=== PATIENT | female | born 1940 | race Caucasian/White ===

== ENCOUNTER → 2016-11-15 | Outpatient (CLI) | payer OTHER ==
[~2016-11-15] MED LIST: ALBU1AER9 INH; ASCO1CAP3 PO; ASPI-390 PO; ASPI1TAB4 PO; AZITTAB PO; BENZ100C84 PO; CALC-51 PO; CHOL100010 PO; ESTR1CRE PV; FERR325T74 PO; LORA-741 PO; PRED20TA PO; PRLSR20 PO; PRM625 PO
--- NOTE | 2016-11-16 07:41 | MAMMOGRAPHY REPORT ---
BILATERAL DIGITAL SCREENING MAMMOGRAM WITH CAD: 11/15/2016 CLINICAL HISTORY: Routine screening. Patient has no complaints. TECHNIQUE: Bilateral CC and MLO views were obtained. Current study was also evaluated with a Compute r Aided Detection (CAD) system. COMPARISON: Comparison is made to exams dated: 11/13/2015 mammogram, 11/11/2014 mammogram, 11/09/2013 m ammogram, 11/08/2012 mammogram, 11/08/2011 mammogram, and 11/05/2010 mammogram - [facility] ter. BREAST COMPOSITION: The tissue of both breasts is heterogeneously dense, which may obscure small mas ses. FINDINGS: There are stable faint groupings of punctate microcalcifications in the upper outer quadran t of the right breast, that appears similar on all available prior mammograms dating back to at least 10/30/2007, therefore likely benign. No new suspicious mass, architectural distortion or cluster of microcalcifications is seen bilaterally. IMPRESSION: ACR BI-RADS CATEGORY 1: NEGATIVE There is no mammographic evidence of malignancy. A 1 year screening mammogram is recommended. The pa tient will receive written notification of the results. Approximately 10% of breast cancers are not detected with mammography. A negative mammographic report should not delay biopsy if a clinically suggestive mass is present. Larissa Pitts M.D. ay/:11/15/2016 16:08:24 Blender Operator: Mallory GR)(Rodo), [facility] letter sent: Normal 1/2 BI-RADS Code: ACR BI-RADS Category 1: Negative
== END | disposition home or self-care (01) ==
LOC: C.MAMM 11:07
PROVIDERS: ATTEND Internal Medicine
DX: Z12.31 Encounter for screening mammogram for malignant neoplasm of breast (principal)

== ENCOUNTER 2017-03-02 15:08 | Inpatient (IN) | payer OTHER ==
[~2017-03-02] VITALS: Ht 154.9 cm; Wt 67.6 kg
[~2017-03-02 15:08] MED LIST changes: -ASPI-390 PO; -CALC-51 PO; -LORA-741 PO; -PRLSR20 PO
[2017-03-02] MEDS ORDERED: ASPIRIN 81 MG CHEW PO STA (15:48)
--- NOTE | 2017-03-02 16:07 | DIAGNOSTIC IMAGING REPORT ---
CHEST ONE VIEW PORTABLE CLINICAL HISTORY: Chest Pain dyspnea COMPARISON STUDY: No previous studies for comparison. FINDINGS: The bones soft tissues and hemidiaphragms are normal. The cardiomediastinal silhouette is normal. The lungs are clear. The pulmonary vasculature is normal. IMPRESSION: Negative chest. The above report was generated using voice recognition software. It may contain grammatical, syntax or spelling errors. Electronically signed by: Arnulfo Weinberg M.D. 03/02/2017 4:06 PM Dictated Date/Time: 03/02/2017 4:06 PM
[2017-03-02 16:12] LABS: BASO % 0.4 %; BASO ABS # 0.03 K/uL (0-0.2); COMPLETE YES; HEMATOCRIT 38.7 % (37-47); IG% 0.1 %; LYMPH % 27.5 %; LYMPH ABS # 2.11 K/uL (1.2-3.4); MEAN CELL VOLUME 85.4 fL (80-100); MEAN CORPUSCULAR HEMOGLOBIN 27.8 pg (25-34); MEAN CORPUSCULAR HGB CONC 32.6 g/dl (32-36); MEAN PLATELET VOLUME 9.7 fL (7.4-10.4); MONO % 5.6 %; NEUT % 63.4 %; PLATELET COUNT 229 K/uL (130-400); RED BLOOD COUNT 4.53 M/uL (4.2-5.4); WHITE BLOOD COUNT 7.67 K/uL (4.8-10.8)
[2017-03-02] MEDS ORDERED: CHOL100027 PO (16:26)
[2017-03-02] MEDS ORDERED: BUSP15TA70 PO (16:26)
[2017-03-02] MEDS ORDERED: FERR1TAB23 PO (16:26)
[2017-03-02] MEDS ORDERED: CALC500T72 PO (16:26)
[2017-03-02] MEDS ORDERED: ASPI1TAB4 PO (16:26)
[2017-03-02] MEDS ORDERED: FLUT0.15 NAE (16:26)
[2017-03-02] MEDS ORDERED: CYAN10005 PO (16:26)
[2017-03-02 16:37] LABS: BUN/CREATININE RATIO 21.5 (10-20); CALCIUM 9.6 mg/dl (8.5-10.1); CREATININE 0.67 mg/dl (0.60-1.20); POTASSIUM 3.8 mmol/L (3.5-5.1)
[2017-03-02] MEDS ORDERED: PRLSR20 PO (16:44)
[2017-03-02 16:57] LABS: CKMB/CK RATIO 9.5 (0-3.0)
[2017-03-02 17:06] VITALS: Ht 154.9 cm; Wt 67.6 kg
--- NOTE | 2017-03-02 18:28 | History and Physical ---
History & Physical Date & Time of Service: Mar 02, 2017 at 18:28 Chief Complaint: Chest And Jaw Pain-Sent By 's Office Primary Care Physician: Vesta Reyes M.D. History of Present Illness Source: patient This is a 76 yo F with no significant past medical history -presented to ED with substernal chest pain , radiation to left arm , left side of her Jaw her symptom occurred approx at 2 PM ,she was talking to her friend over phone , started to have chest discomfort . initially felt like burning sensation in mid chest , leading to chest heaviness, SOB , numbness on left arm and shoulder , to jaw -left side of her teeth and gum area her symptom resolved after few minutes did not had any dizzy spell , no nausea or diaphoresis had similar episode on Tuesday while she was walking ( usually walks 1 mile ) - she had to turn around after half way due to chest discomfort , her symptom resolved with rest On Tuesday as she was sitting and watching TV had similar episode in the ER pt was chest pain free , EKG shows inverted T wave in AVL, Lead I and flatten T wave in V5-V6 Troponin elevated to 1.210 with elevated CKMB pt does not have prior hx of NC or cardiac disease Has Family hx of CAD -mother had unstable angina , had angioplasty done at her late 60's Father had acute NC at age 40 's leading to heart failure , underwent CABG Her Younger brother last year form Acute NC ( her brother is 9 yrs younger ) pt admitted to [facility] for NSTEMI at present chest pain free started on IV heparin gtt form ER case D/w Cardiology -ordered NPO past midnight for Cardiac Cath tomorrow Past Medical/Surgical History Medical Problems: (1) GERD (gastroesophageal reflux disease) Status: Chronic (2) Kidney stones Status: Chronic Family History Patient reports no known family medical history. Social History Smoking Status: Never Smoker Drug Use: none Marital Status: single Occupational Status: employed Immunizations History of Influenza Vaccine: Yes History of Tetanus Vaccine?: Yes History of Pneumococcal: Yes History of Hepatitis B Vaccine: Yes Multi-Drug Resistant Organisms History of MDRO: No Allergies Coded Allergies: No Known Allergies (Verified , 08/28/09) Home Medications Scheduled Aspirin-Caffeine (Kevin Back & Body Pain Ex), 1 TAB PO PRN UD Calcium Ascorbate (Vitamin C), 500 MG PO DAILY Cholecalciferol (Vitamin D 1000 Unit), 1,000 INTER.UNIT PO DAILY Cyanocobalamin (Vitamin B-12), 1,000 MCG PO DAILY Ferrous Sulfate (Iron), 325 MG PO DAILY Omeprazole (Prilosec), 20 MG PO DAILY Scheduled PRN Zukbszb-Bthxwfavunrlx-Cqejxkpj (Excedrin Migraine), 2 TABLETS PO Q6H PRN for Pain Buspirone Hcl (Buspar), 7.5 MG PO BID PRN for Anxiety Fluticasone Propionate (Nasal) (Flonase Allergy Relief), 2 SPRAYS EBATA DAILY PRN for Nasal Congestion Lorazepam (Ativan), 0.5 MG PO BID PRN for Anxiety Miscellaneous Medications [Calcium], 1,250 MG PO Review of Systems Respiratory: + dyspnea on exertion Cardiovascular: + chest pain (chest heaviness with pain radiation to jaw and left shoulder , arm ) Abdomen: No pain, No nausea, No vomiting, No diarrhea, No constipation, No GI bleeding, No problem reported Musculoskeletal: No joint pain, No muscle pain, No swelling, No calf pain, No problem reported Neurologic: No memory loss, No paralysis, No weakness, No numbness/tingling, No vertigo, No balance problems, No problem reported Psychiatric: No depression symptoms, No anhedonism, No anxiety, No insomnia, No substance abuse, No problem reported Endocrine: No fatigue, No excessive thirst, No excessive urination, No problem reported Physical Exam Vital Signs Date Time Temp Pulse Resp B/P (MAP) Pulse Ox O2 Delivery O2 Flow Rate FiO2 03/02/17 17:33 70 17 96 03/02/17 17:31 154/87 03/02/17 17:18 68 21 97 03/02/17 17:06 Room Air 03/02/17 17:03 64 17 98 03/02/17 17:01 145/86 03/02/17 16:50 149/89 03/02/17 16:48 69 17 03/02/17 16:41 69 03/02/17 15:44 96 Room Air 03/02/17 15:43 174/84 03/02/17 15:30 36.6 72 20 144/79 97 Room Air General Appearance: no apparent distress Head: normocephalic, atraumatic Eyes: normal inspection, PERRL, EOMI, sclerae normal ENT: normal ENT inspection, hearing grossly normal, pharynx normal Neck: supple, no adenopathy, thyroid normal, no JVD, no carotid bruits, trachea midline Respiratory/Chest: chest non-tender, lungs clear, normal breath sounds, no respiratory distress Cardiovascular: regular rate, rhythm, no edema, no gallop, no JVD, no murmur, normal peripheral pulses Abdomen/GI: normal bowel sounds, non tender, soft Extremities/Musculoskelatal: normal inspection, no calf tenderness, normal capillary refill, no pedal edema, normal range of motion Neurologic/Psych: no motor/sensory deficits, alert, normal mood/affect, oriented x 3 Skin: normal color, warm/dry, no rash Lymphatic: no adenopathy Diagnostics Laboratory Results Results Past 24 Hours Test 03/02/17 15:50 Range/Units White Blood Count 7.67 4.8-10.8 K/uL Red Blood Count 4.53 4.2-5.4 M/uL Hemoglobin 12.6 12.0-16.0 g/dL Hematocrit 38.7 37-47 % Mean Corpuscular Volume 85.4 80-100 fL Mean Corpuscular Hemoglobin 27.8 25-34 pg Mean Corpuscular Hemoglobin Concent 32.6 32-36 g/dl Platelet Count 229 130-400 K/uL Mean Platelet Volume 9.7 7.4-10.4 fL Neutrophils (%) (Auto) 63.4 % Lymphocytes (%) (Auto) 27.5 % Monocytes (%) (Auto) 5.6 % Eosinophils (%) (Auto) 3.0 % Basophils (%) (Auto) 0.4 % Neutrophils # (Auto) 4.86 1.4-6.5 K/uL Lymphocytes # (Auto) 2.11 1.2-3.4 K/uL Monocytes # (Auto) 0.43 0.11-0.59 K/uL Eosinophils # (Auto) 0.23 0-0.5 K/uL Basophils # (Auto) 0.03 0-0.2 K/uL RDW Standard Deviation 49.5 36.4-46.3 fL RDW Coefficient of Variation 15.9 11.5-14.5 % Immature Granulocyte % (Auto) 0.1 % Immature Granulocyte # (Auto) 0.01 0.00-0.02 K/uL Sodium Level 139 136-145 mmol/L Potassium Level 3.8 3.5-5.1 mmol/L Chloride Level 107 98-107 mmol/L Carbon Dioxide Level 27 21-32 mmol/L Anion Gap 5.0 3-11 mmol/L Blood Urea Nitrogen 14 7-18 mg/dl Creatinine 0.67 0.60-1.20 mg/dl Est Creatinine Clear Calc Drug Dose 65.3 ml/min Estimated GFR () 100.4 Estimated GFR (Non- 86.6 BUN/Creatinine Ratio 21.5 10-20 Random Glucose 101 70-99 mg/dl Calcium Level 9.6 8.5-10.1 mg/dl Total Creatine Kinase 76 26-192 U/L Creatine Kinase MB 7.2 0.5-3.6 ng/ml Creatine Kinase MB Ratio 9.5 0-3.0 Troponin I 1.210 0-0.045 ng/ml CXR normal EKG Vent. rate 67 BPM LA interval 144 ms QRS duration 76 ms QT/QTc 430/454 ms P-R-T axes 62 53 97 Normal sinus rhythm Possible Left atrial enlargement T wave abnormality, consider lateral ischemia Abnormal ECG When compared with ECG of 16-JUL-2013 19:46, T wave inversion now evident in Anterior leads Confirmed by MANA CAMARILLO ([id number]) on 03/02/2017 4:55:01 PM Impression Assessment and Plan NSTEMI : presented with unstable angina symptom -chest discomfort at rest EKG with T wave inversion ant and lateral leads Troponin and CK MB elevation no complain of chest pain at present Family hx of CAD -Father /Mother /brother admitted to tele -on IV heparin wt based protocol ordered for Nitro paste , Beta vickie -Lopressor 25 mg BID , Statin- Lipitor 40 mg given full strength aspirin in ED will cont with Aspirin 81 mg daily serial cardiac markers ordered , ECHO to assess LV function , wall motion abnormality NPO past midnight Case D/w order caller Cardiology -will have cardiac cath tomorrow if pt developed chest pain /angina overnight while on active medical management , or Dynamic EKG changes develops will need emergent Cardiac cath tonight pt and family updated at bed side ANXIETY DISORDER: cont Ativan PRN GERD: cont PPI FULL CODE : DVT PROPHYLAXIS : IV heparin wt based protocol for NSTEMI DISPOSITION : expected to be discharged home when medically stable Medicine follow up with Dr Vesta Reyes will need close Cardiology follow up on discharge Level of Care Telemetry Advanced Directives Existing Living Will: No Existing Power of Die Sizer: No Resuscitation Status FULL RESUSCITATION VTE Prophylaxis VTE Risk Assessment Done? Y/N: Yes Risk Level: Moderate Given or contraindicated: Other Anticoagulation (iv heparin ) Additional Copies To Vesta Reyes M.D. Henry, Sheldon D., M.D.
[2017-03-02] MEDS ORDERED: ACETAMINOPHEN 325 MG TAB PO PRN (18:30)
[2017-03-02] MEDS ORDERED: MAGNESIUM HYDROXIDE SUSP 30 ML UDC PO PRN (18:30)
[2017-03-02] MEDS ORDERED: ALUMINUM/MAGNESIUM/SIMETH (MAALOX MAX) 30 ML UDC PO PRN (18:30)
[2017-03-02] MEDS ORDERED: FLUTICASONE PROPIONATE NA SPR 16 GM BTL NAE PRN (18:30)
[2017-03-02] MEDS ORDERED: LORAZEPAM 0.5 MG TAB PO PRN (18:30)
[2017-03-02] MEDS ORDERED: POLYETHYLENE (MIRALAX) 17 GM PACK PO PRN (18:30)
[2017-03-02] MEDS ORDERED: NITROGLYCERIN 0.4 MG SL PER TAB CHARGE SL PRN (18:30)
[2017-03-02] MEDS ORDERED: MoRPHine SULFATE 2 MG/ML CARP IV PRN (18:30)
[2017-03-02] MEDS ORDERED: HEPARIN SOD 5000 UNIT/0.5 ML CARP ONE (18:39)
[2017-03-02] MEDS ORDERED: HEPARIN 25000 UNIT/500 ML D5W ONE (18:39)
[2017-03-02] MEDS ORDERED: HEPARIN IV BOLUS 3,000 UNIT in SYRINGE 0 ML IV ONE (18:45)
[2017-03-02] MEDS ORDERED: ASPI-390 PO (18:46)
[2017-03-02] MEDS: HEPARIN 25000 UNIT/ D5W 500 ML (PHARMACY PREPARED) IV PRN ×2 (18:46)
[2017-03-02 18:57] LABS: INR 0.9 (0.9-1.1)
[2017-03-02] MEDS ORDERED: LORA-741 PO (19:01)
[2017-03-02] MEDS ORDERED: CALC-51 PO (19:09)
[2017-03-02 19:15] VITALS: BP 166/82; PULSE 70; TEMP 36.5; O2SAT 98
--- NOTE | 2017-03-02 20:13 | EMERGENCY ROOM VISIT NOTE ---
History Report prepared by Eleni: Alina Barker Under the Supervision of: Dr. Lee Daigle D.O. First contact with patient: 15:37 Chief Complaint: CHEST PAIN Stated Complaint: CHEST AND JAW PAIN-SENT BY 'S OFFICE Nursing Triage Summary: Pt states that on Tue. she starte to have tightness and burning in her chest while walking. Pt then had similar symtoms on Tuesday. Today pt today she has similar symtoms with tightness in her chest, pain radiating to her jaw and tingle in her left. Pt called her PCP and was told to come to the ED. Pt states that she currently does not have pain. The pain comes and goes. History of Present Illness The patient is a 76 year old female who presents to the Emergency Room with complaints of intermittent chest pain starting 4 days ago. She describes the pain as a tightness and a burning. She first noticed it after going on a short walk 4 days ago. She cut her walk short because of the chest pain. The chest pain lasted around 5 minutes. The got the pain again 2 days ago. She was not doing anything at the time. She got the pain again today around 1400 while she was talking to her friend on the phone. The pain resolved after around 5 minutes each time. It seems to improve after sitting down and resting. She also reports some left jaw pain. She denies any SOB, leg swelling, hemoptysis. She is on omeprazole for a history of GERD. She denies any other medical problems. Source of History: patient Onset: 4 days ago Position: chest Quality: burning, other (tightness) Timing: intermittent Modifying Factors (Relieving): rest Associated Symptoms: No SOB Note: Pt reports jaw pain. Pt denies leg swelling, hemoptysis. Review of Systems See HPI for pertinent positives & negatives. A total of 10 systems reviewed and were otherwise negative. Past Medical & Surgical Medical Problems: (1) GERD (gastroesophageal reflux disease) (2) Kidney stones (3) NSTEMI (non-ST elevated myocardial infarction) Family History Patient reports no known family medical history. Social History Smoking Status: Never Smoker Alcohol Use: none Drug Use: none Marital Status: single Housing Status: lives with family Current/Historical Medications Scheduled Aspirin-Caffeine (Kevin Back & Body Pain Ex), 1 TAB PO PRN UD Calcium Ascorbate (Vitamin C), 500 MG PO DAILY Cholecalciferol (Vitamin D 1000 Unit), 1,000 INTER.UNIT PO DAILY Cyanocobalamin (Vitamin B-12), 1,000 MCG PO DAILY Ferrous Sulfate (Iron), 325 MG PO DAILY Omeprazole (Prilosec), 20 MG PO DAILY Scheduled PRN Ailyiie-Vzptfblgyvikf-Abufvzeq (Excedrin Migraine), 2 TABLETS PO Q6H PRN for Pain Buspirone Hcl (Buspar), 7.5 MG PO BID PRN for Anxiety Fluticasone Propionate (Nasal) (Flonase Allergy Relief), 2 SPRAYS BEATA DAILY PRN for Nasal Congestion Lorazepam (Ativan), 0.5 MG PO BID PRN for Anxiety Miscellaneous Medications [Calcium], 1,250 MG PO Allergies Coded Allergies: No Known Allergies (Verified , 08/28/09) Physical Exam Vital Signs Date Time Temp Pulse Resp B/P (MAP) Pulse Ox O2 Delivery O2 Flow Rate FiO2 03/02/17 17:33 70 17 96 03/02/17 17:31 154/87 03/02/17 17:18 68 21 97 03/02/17 17:06 Room Air 03/02/17 17:03 64 17 98 03/02/17 17:01 145/86 03/02/17 16:50 149/89 03/02/17 16:48 69 17 03/02/17 16:41 69 03/02/17 15:44 96 Room Air 03/02/17 15:43 174/84 03/02/17 15:30 36.6 72 20 144/79 97 Room Air Physical Exam GENERAL: Sitting up in bed, alert, well appearing, well nourished, no distress, non-toxic EYE EXAM: normal conjunctiva. OROPHARYNX: no exudate, no erythema, lips, buccal mucosa, and tongue normal and mucous membranes are moist NECK: supple, no nuchal rigidity, no adenopathy, non-tender LUNGS: Clear to auscultation. Normal chest wall mechanics HEART: no murmurs, S1 normal and S2 normal ABDOMEN: abdomen soft, non-tender, normo-active bowel sounds, no masses, no rebound or guarding. BACK: Back is symmetrical on inspection and there is no deformity, no midline tenderness, no CVA tenderness. SKIN: no rashes and no bruising UPPER EXTREMITIES: upper extremities are grossly normal. LOWER EXTREMITIES: No pitting edema. NEURO EXAM: Normal sensorium, cranial nerves II-XII grossly intact, normal speech, no gross weakness of arms, no gross weakness of legs. Medical Decision & Procedures ER Provider Diagnostic Interpretation: Radiology results as stated below per my review and the radiologist's interpretation: CHEST ONE VIEW PORTABLE CLINICAL HISTORY: Chest Pain dyspnea COMPARISON STUDY: No previous studies for comparison. FINDINGS: The bones soft tissues and hemidiaphragms are normal. The cardiomediastinal silhouette is normal. The lungs are clear. The pulmonary vasculature is normal. IMPRESSION: Negative chest. The above report was generated using voice recognition software. It may contain grammatical, syntax or spelling errors. Electronically signed by: Arnulfo Weinberg M.D. 03/02/2017 4:06 PM Dictated Date/Time: 03/02/2017 4:06 PM Laboratory Results 03/02/17 15:50 Red Blood Count 4.53, Mean Corpuscular Volume 85.4, Mean Corpuscular Hemoglobin 27.8, Mean Corpuscular Hemoglobin Concent 32.6, Mean Platelet Volume 9.7, Neutrophils (%) (Auto) 63.4, Lymphocytes (%) (Auto) 27.5, Monocytes (%) (Auto) 5.6, Eosinophils (%) (Auto) 3.0, Basophils (%) (Auto) 0.4, Neutrophils # (Auto) 4.86, Lymphocytes # (Auto) 2.11, Monocytes # (Auto) 0.43, Eosinophils # (Auto) 0.23, Basophils # (Auto) 0.03 03/02/17 15:50 Test 03/02/17 15:50 White Blood Count 7.67 K/uL (4.8-10.8) Red Blood Count 4.53 M/uL (4.2-5.4) Hemoglobin 12.6 g/dL (12.0-16.0) Hematocrit 38.7 % (37-47) Mean Corpuscular Volume 85.4 fL (80-100) Mean Corpuscular Hemoglobin 27.8 pg (25-34) Mean Corpuscular Hemoglobin Concent 32.6 g/dl (32-36) Platelet Count 229 K/uL (130-400) Mean Platelet Volume 9.7 fL (7.4-10.4) Neutrophils (%) (Auto) 63.4 % Lymphocytes (%) (Auto) 27.5 % Monocytes (%) (Auto) 5.6 % Eosinophils (%) (Auto) 3.0 % Basophils (%) (Auto) 0.4 % Neutrophils # (Auto) 4.86 K/uL (1.4-6.5) Lymphocytes # (Auto) 2.11 K/uL (1.2-3.4) Monocytes # (Auto) 0.43 K/uL (0.11-0.59) Eosinophils # (Auto) 0.23 K/uL (0-0.5) Basophils # (Auto) 0.03 K/uL (0-0.2) RDW Standard Deviation 49.5 fL (36.4-46.3) RDW Coefficient of Variation 15.9 % (11.5-14.5) Immature Granulocyte % (Auto) 0.1 % Immature Granulocyte # (Auto) 0.01 K/uL (0.00-0.02) Prothrombin Time 10.0 SECONDS (9.0-12.0) Prothromb Time International Ratio 0.9 (0.9-1.1) Anion Gap 5.0 mmol/L (3-11) Est Creatinine Clear Calc Drug Dose 65.3 ml/min Estimated GFR () 100.4 Estimated GFR (Non- 86.6 BUN/Creatinine Ratio 21.5 (10-20) Calcium Level 9.6 mg/dl (8.5-10.1) Total Creatine Kinase 76 U/L (26-192) Creatine Kinase MB 7.2 ng/ml (0.5-3.6) Creatine Kinase MB Ratio 9.5 (0-3.0) Troponin I 1.210 ng/ml (0-0.045) Laboratory results per my review. Medications Administered Medications (Trade) Dose Ordered Sig/Cyndie Route Start Time Stop Time Status Last Admin Dose Admin Aspirin (Aspirin Chew) 324 mg NOW STAT PO 03/02/17 15:48 03/02/17 15:49 DC 03/02/17 15:56 324 MG ECG Indication: chest pain Rate (beats per minute): 67 Rhythm: sinus rhythm Findings: T-wave inversion (Septal), other (normal axis, normal intervals) ED Course ED COURSE: Vital signs were reviewed and showed hypertension. The patients medical record was reviewed The above diagnostic studies were performed and reviewed. ED treatments and interventions as stated above. 1539: The patient was evaluated in room C7. A complete history and physical examination was performed. 1548: Aspirin 324 mg PO. 1708: Upon reevaluation, the patient is resting comfortably. She denies any hematemesis, bloody stools, hematuria, hemoptysis, recent trauma, recent surgery , or previous intracranial bleed. I discussed my findings with the patient and she understands and agrees with the treatment plan. Based on the patients age, coexisting illnesses, exam and lab findings the decision to treat as an inpatient was made. The patient remained stable while under my care. The patient will be evaluated for further management. 1800: Heparin Sodium/Dextrose IV. 1814: I [facility] the [facility] She will evaluate the patient for further management. Medical Decision Differential diagnoses includes but is not limited to acute coronary syndrome, myocardial infarction, pericarditis, pulmonary embolus, aortic dissection, pneumonia, pneumothorax, musculoskeletal, shingles, esophageal. Patient is a 76-year-old female who presents to ER with exertional chest pain and shortness of breath which has been worsening over the past 4 days. Initially with exertion now with rest. EKG is nondiagnostic. Chest x-ray was unremarkable. Troponin was elevated at 1. Based on her symptoms I do believe this to be unstable angina. With it coming going at rest and the elevated troponin I did place her on heparin drip and bolus. Patient has no bleeding risk factors as she declines any hemoptysis, hematemesis, melena, bright red blood in stool, or previous brain bleeds, recent trauma, or recent surgeries. She did have a history of anemia which was of an unknown etiology per patient. Patient family were updated at bedside. She was placed on heparin drip and bolus. She was admitted to internal medicine as an STEMI. Medication Reconcilliation Current Medication List: was personally reviewed by me Blood Pressure Screening Patient's blood pressure: Elevated blood pressure Blood pressure disposition: Referred to PCP Consults Time Called: 170 [facility] Phys[facility] Returned Call: [phone] I reviewed the patient's case with her. She will evaluate the patient for further management. Impression Primary Impression: NSTEMI (non-ST elevated myocardial infarction) Critical Care I have personally spent 35 minutes of critical care time in the direct management of this patient. This includes bedside care, interpretation of diagnostic studies, and testing, discussion with consultants, patient, and family members, and other required patient management activities. This 35 minutes is in excess of all separately billable procedures. Scribe Attestation The scribe's documentation has been prepared under my direction and personally reviewed by me in its entirety. I confirm that the note above accurately reflects all work, treatment, procedures, and medical decision making performed by me. Departure Information Dispostion Being Evaluated By Hospitalist Vesta De Luna M.D. (PCP) Patient Instructions My [facility]
[2017-03-02] MEDS: METOPROLOL TARTRATE 25 MG TAB PO SCH (20:33)
[2017-03-02] MEDS: ATORVASTATIN 40 MG TAB PO SCH (20:33)
[2017-03-02] MEDS: NITROGLYCERIN OINT 2% 1GM PACKET EXT SCH (22:09)
[2017-03-02 23:30] VITALS: BP 145/77; PULSE 61; TEMP 37; O2SAT 97
[2017-03-03] VITALS (19 sets, daily range): BP systolic 120–156; BP diastolic 66–80; PULSE 58–79; TEMP 36.4–37; O2SAT 94–98
[2017-03-03 01:24] LABS: PARTIAL THROMBOPLASTIN RATIO 1.2
[2017-03-03 01:32] LABS: CKMB/CK RATIO 8.3 (0-3.0)
[2017-03-03] MEDS ORDERED: HEPARIN IV BOLUS 4,000 UNIT in SYRINGE 0 ML IV ONE (02:00)
[2017-03-03] MEDS: HEPARIN 25000 UNIT/ D5W 500 ML (PHARMACY PREPARED) IV PRN ×2 (02:11)
[2017-03-03] MEDS: NITROGLYCERIN OINT 2% 1GM PACKET EXT SCH (03:49)
[2017-03-03 05:47] LABS: HEMATOCRIT 36.7 % (37-47); MEAN CELL VOLUME 85.9 fL (80-100); MEAN CORPUSCULAR HEMOGLOBIN 26.9 pg (25-34); MEAN CORPUSCULAR HGB CONC 31.3 g/dl (32-36); MEAN PLATELET VOLUME 9.8 fL (7.4-10.4); PLATELET COUNT 224 K/uL (130-400); RED BLOOD COUNT 4.27 M/uL (4.2-5.4); WHITE BLOOD COUNT 7.63 K/uL (4.8-10.8)
[2017-03-03 06:14] LABS: BUN/CREATININE RATIO 19.7 (10-20); CALCIUM 9.3 mg/dl (8.5-10.1); CREATININE 0.62 mg/dl (0.60-1.20); MAGNESIUM 2.1 mg/dl (1.8-2.4)
[2017-03-03 06:24] LABS: CHOLESTEROL/HDL RATIO 2.7
[2017-03-03 06:49] LABS: PARTIAL THROMBOPLASTIN RATIO 2.7
[2017-03-03] MEDS: METOPROLOL TARTRATE 25 MG TAB PO SCH ×2 (07:52→21:12)
[2017-03-03] MEDS: PANTOprazole SOD 40 MG TAB PO SCH (07:52)
[2017-03-03] MEDS: ASPIRIN 81 MG ECTAB PO SCH (07:53)
[2017-03-03] MEDS ORDERED: NITROGLYCERIN/D5W 100MCG/ML 20ML SYR ONE (08:47)
[2017-03-03] MEDS ORDERED: NiCARDipine HCL INJ 2.5 MG/ML 10 ML AMP ONE (08:47)
[2017-03-03] MEDS: FENTANYL CITRATE INJ 50 MCG/1 ML 2 ML VIAL ONE (08:47)
[2017-03-03] MEDS ORDERED: HEPARIN SOD (PORCINE) 1000 UNIT/ML 10 ML VIAL ONE (08:47)
[2017-03-03] MEDS ORDERED: MIDAZOLAM HCL 1 MG/ML 2ML VIAL ONE ×2 (08:47→10:28)
--- NOTE | 2017-03-03 08:52 | CARDIOLOGY CONSULTATION ---
DATE OF CONSULTATION: 03/03/2017 REFERRING PHYSICIAN: Dr. Kimberly Lake. REASON FOR CONSULTATION: NSTEMI. CHIEF COMPLAINT ON ADMISSION: Chest pain, jaw pain, and sent by a physician's office. HISTORY OF PRESENT ILLNESS: The patient is a 76-year-old female with no significant past medical history. She reports initial episode of chest and jaw discomfort occurring on Tuesday while on her walk. The discomfort was relieved with rest. The pain recurred on Tuesday, described as a burning sensation in her mid chest, radiating to her jaw. Again, the symptoms spontaneously resolved. Her pain recurred again on March 02 while watching TV. The pain was more significant and radiated to her jaw as well. There was mild associated shortness of breath. She came to the Emergency Department and found to have elevated troponin. The patient was treated with aspirin. She has been pain free overnight. Intravenous heparin has been infusing. Family history of premature CAD noted below. Preliminary review of the bedside echocardiogram reveals anterior and anteroseptal hypokinesis with preserved LV systolic function. The patient offers no other complaints at this time. REVIEW OF SYSTEMS: The pertinent positive noted above, a comprehensive 10-system review is otherwise negative. PAST MEDICAL HISTORY: 1. GERD. 2. Nephrolithiasis. PAST SURGICAL HISTORY: Denied. FAMILY HISTORY: Significant for coronary artery disease, younger brother at age 62, and father had myocardial infarction in his 40s. ALLERGIES: No known drug allergies. HOME MEDICATIONS: 1. Ferrous sulfate daily. 2. Prilosec 20 mg daily. 3. Vitamin C. 4. Excedrin Migraine as needed. 5. BuSpar as needed. 6. Lorazepam as needed. 7. Flonase as needed. ECG on admission demonstrates sinus rhythm with T-wave abnormality, consider lateral ischemia. Nonspecific anterior T-wave change. Repeat ECG performed this morning demonstrates more prominent lateral T-wave inversion. Chest x-ray on admission: No active disease. LABORATORY DATA: Troponin 1.630 with elevated CK-MB of 8.3. Sodium 141, potassium 4.0, chloride is 107, CO2 is 27, BUN is 12, and creatinine is 0.62. White blood cell count 7.63, hemoglobin is 11.5, and platelet count is 224. Telemetry demonstrates sinus rhythm without dysrhythmia. PHYSICAL EXAMINATION: VITAL SIGNS: Temperature is 36.5 degrees centigrade, pulse 67 beats per minute and regular, respiratory rate is 18 breaths per minute, blood pressure 120/74 and SaO2 is 95% on room air. GENERAL: NAD, awake, alert and oriented x3. HEENT: Mucous membranes moist. No scleral icterus. His conjunctivae pink. NECK: Supple without JVD or HJR. No carotid bruit. HEART: Regular with a normal S1 and S2. There is no murmur, rub, or gallop. LUNGS: Clear without rales, rhonchi or wheeze. ABDOMEN: Soft and nontender. No rebound or guarding. Normal bowel sounds. EXTREMITIES: Warm and dry. There is no clubbing, cyanosis, or edema. NEUROLOGIC: Demonstrates no focal motor deficit. FINAL IMPRESSION: 1. Ckg-GR-rcpqnlk elevation myocardial infarction. 2. Hypertension -- improved since admission. 3. Dyslipidemia -- statin therapy initiated on admission. 4. Family history of premature coronary artery disease. PLAN AND RECOMMENDATIONS: I had a long discussion with the patient regarding the pathophysiology of her NSTEMI. The risks, benefits, and alternatives to cardiac catheterization with coronary angiography were discussed at length. The patient is agreeable to procedure. She is a drug-eluting stent candidate. Continue aspirin, atorvastatin, IV heparin, and low dose metoprolol at this time. Topical nitrates will be removed prior to procedure. Further recommendations pending review of cardiac catheterization. ALEXSANDRA
--- NOTE | 2017-03-03 10:00 | Procedure Note ---
Pre-Mod Sedation Assessment General Date of Moderate Sedation: Mar 03, 2017. Vital Signs: Vital Signs Past 12 Hours Date Time Temp Pulse Resp B/P (MAP) Pulse Ox O2 Delivery O2 Flow Rate FiO2 03/03/17 08:20 36.5 67 18 120/74 (89) 95 Room Air 03/03/17 08:00 Room Air 03/03/17 03:50 Room Air 03/03/17 03:49 36.8 61 16 122/69 (86) 95 Room Air 03/03/17 00:00 Room Air 03/02/17 23:30 37.0 61 17 145/77 (99) 97 Room Air Review Cardiovascular: regular rate, rhythm, no edema, no gallop Abdomen: normal bowel sounds, non tender, soft Lungs: lungs clear, normal breath sounds Pre-Sedation Airway Assessment Oral Cavity: WNL Short Thick Neck: No Hx of Sleep Apnea: No Smoking Status: Never Smoker Mallampati Classification: Class II ASA Classification: Class IV Procedure Planning Contraindications-for Mod Sed: None Yes Notes The planned sedation has been discussed with the patient and consent obtained. I have identified the patient, determined the appropriateness of sedation and have assessed the patient immediately prior to the procedure. All medicine(s) and interventions are by my order.
--- NOTE | 2017-03-03 10:01 | Procedure Note ---
Post-Mod Sedation Assessment General Date of Moderate Sedation Mar 03, 2017. 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 D/C Criteria Distal Pulses Present (Cardiac: Yes Groin site assessed-Card Cath: N/A Voided Prior To Discharge: N/A Discharged Patients Adult Escort/Transportation: N/A
--- NOTE | 2017-03-03 10:12 | Cardiac Catheterization ---
Procedure Note Procedure Date Mar 03, 2017. Pre-Procedure Diagnosis Non STEMI AUC Score 9 Post-Procedure Diagnosis Severe CAD Procedure(s) Performed Coronary Angiography Fabrics And Material Cutter Dr. Sena Control Board Operator(s) Dain RTR Estimated Blood Loss 5cc Medication(s) Fentanyl, Heparin, Nicardipine, Nitroglycerin, Versed, Lidocaine 1% Summary of Findings 99% proximal LAD with KARLY 2 flow 50% ostial RCA with anterior and vertical origin Hemodynamics Rest Ao: 105/57/79 Final Ao: 119/59/86 LV: N/A Recommendations PCI without planned CABG Specimens None Radiation Exposure (mGy) 1201 Contrast (mls) 50 Anesthesia Moderate sedation. Start 09. 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 for PCI of LAD ACC Data Cardiac Status Clinical evaluation leading to the procedure CAD Presntation: Non STEMI Anginal Classification: CCS IV Heart Failure: No Cardiogenic Shock w/in 24Hrs: No Cardiac Arrest w/in 24Hrs: No Imaging studies past 6 months: Yes Stress studies past 6 months: No Coronary Anatomy Dominant: Right Left Main (% Stenosis): Normal LAD (% Stenosis): Proximal (99% with KARLY 1 flow) D1 (% Stenosis): Normal D2 (% Stenosis): Ostial OM1 (% Stenosis): Ostial (large vessel), Mid (40%, 50% ostial stenosis of second sub-branch off large OM1,) RCA (% Stenosis): Ostial (50%, difficult engagement secondary to vertical and stenosed origin for aorta. Successful engagement with AR1 catheter.) R PDA (% Stenosis): Ostial (40%) R PL1 (% Stenosis): Normal R PL2 (% Stenosis): Normal Diagnostic Status: Urgent Closure Device Percutaneous Entry Location: Radial Closure Device: Mynx Recommendations: PCI without planned CABG Intraprocedure Events Significant Dissection: No Perforation: No
[2017-03-03] MEDS ORDERED: CLOPIDOGREL BISULFATE 300 MG TAB PO ONE (10:47)
[2017-03-03] MEDS ORDERED: NITROGLYCERIN 0.4 MG SL PER TAB CHARGE SL PRN (11:30)
[2017-03-03] MEDS ORDERED: SODIUM CHLORIDE 0.9% 1000ML 1,000 ML IV SCH (11:30)
[2017-03-03] MEDS: ONDANSETRON INJ 2 MG/ML 2 ML VIAL IV PRN ×2 (11:30→18:19)
--- NOTE | 2017-03-03 11:31 | Procedure Note ---
Post-Mod Sedation Assessment General Date of Moderate Sedation Mar 03, 2017. 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 D/C Criteria Distal Pulses Present (Cardiac: Yes Groin site assessed-Card Cath: N/A Voided Prior To Discharge: N/A Discharged Patients Adult Escort/Transportation: N/A
--- NOTE | 2017-03-03 11:40 | Cardiac Catheterization ---
Procedure Note Procedure Date Mar 03, 2017. Pre-Procedure Diagnosis Non STEMI AUC Score 8 Post-Procedure Diagnosis Severe CAD Procedure(s) Performed Drug Eluting Stent Hunting And Fishing Guide Timoteo Photoengraving Finisher(s) Dain Estimated Blood Loss 20 Medication(s) Fentanyl, Heparin, Nicardipine, Nitroglycerin, Versed Summary of Findings Indication: NSTEMI Access: 6Fr slender right radial artery Catheters: EBU 3.5 guide Findings: For full details of patients coronary angiography please see cardiac cath report dictated by Dr. Sena. Briefly, patient presented with NSTEMI found to have 99% proximal LAD stenosis with KARLY 2 flow at take-off of small diagonal. -- PCI -- Antithrombotic therapy: Heparin, Clopidogrel Procedure: LM cannulated with EBU 3.5 guide Whisper wire passed across lesion into distal vessel Prowater wire placed in small 2nd diagonal Proximal LAD lesion predilated with 2.5 compliant balloon Dilated lesion stented with 2.75 x 23 Xience ROMAN 2nd Diagonal re-wired with Luge wire Ostium of diagonal dilated with 1.5 balloon. Stent post-dilated with 2.75 noncompliant balloon IC vasodilators administered for spasm Post procedure KARLY 3 flow, stent well expanded with minimal residual stenosis and no apparent cardiac complications. KARLY 2-3 flow in small diagonal Arterial Closure: TR Band Summary: 1. Successful PCI of proximal LAD with 2.75 x 23 Xience ROMAN Recommendations: To PCU for continued monitoring Can discontinue heparin infusion Loaded with Clopidogrel 600 mg in labor relations specialist Continue dual-antiplatelet therapy with ASA/Clopidogrel for 1 year Continued ASCVD risk factor modification per Dr. Sena Consult cardiac Rehab Hemodynamics Rest Ao: 105/57/79 Final Ao: 113/57/81 LV: -- Recommendations PCI without planned CABG Specimens None Radiation Exposure (mGy) 2887 Contrast (mls) 160 Opti Fluids (cc crystalloids) 194 Drains None Anesthesia Moderate Procedural Complication(s) None Disposition PCU ACC Data Cardiac Status Clinical evaluation leading to the procedure CAD Presntation: Non STEMI Anginal Classification: CCS IV Heart Failure: No, NYHA Class: CCS I Cardiogenic Shock w/in 24Hrs: No Cardiac Arrest w/in 24Hrs: No Imaging studies past 6 months: Yes Stress studies past 6 months: No Diagnostic Physician's Name: Will Sena DO Status: Urgent Closure Device Percutaneous Entry Location: Radial Closure Device: Radial Band Recommendations: PCI without planned CABG PCI Indication: PCI for high risk Non-STEMI Lesion Segment Name: Proximal LAD Culprit Artery: Yes Stenosis Prior to Rx (%): 99 Chronic Total Occlusion: No IVUS: No FFR: No Pre-Procedure KARLY Flow: 2 Previously Treated Lesion: No Lesion Complexity: Non-High/Non-C Lesion Length (mm): 20 Thrombus Present: Yes Bifurcation Lesion: Yes Guidewire Across Lesion: Yes Guidewire: Stenosis Post-Procedure (%): 0 Post-Procedure KARLY Flow: 3 Device(s) Deployed: Yes Intraprocedure Events Significant Dissection: No Perforation: No
[2017-03-03 12:39] LABS: CKMB/CK RATIO 6.7 (0-3.0)
[2017-03-03 13:06] LABS: PARTIAL THROMBOPLASTIN RATIO < 11.0
--- NOTE | 2017-03-03 13:15 | ECHOCARDIOGRAM REPORT ---
*NOTICE TO RECEIVING DEMOCRAT AGENCY This information is strictly Confidential and protected under [place] law. [place] law prohibits you from making any further disclosure of this information unless further disclosure is expressly permitted by the written consent of the person to whom it pertains or is authorized by law. A general authorization for the release of medical or other information is not sufficient for this purpose. Hospital accepts no responsibility if the information is made available to any other person, INCLUDING THE PATIENT. Interpretation Summary * Name: RORO PEREZ Study Date: 03/03/2017 08:06 AM BP: 122/69 mmHg * Patient Location: C.2T\S\S230\S\1 HR: 61 * : 1940 (M/d/yyyy) Gender: Female Height: 61 in * Age: 76 yrs Ethnicity: CA Weight: 151 lb * Ordering Physician: Kimberly Lake * Referring Physician: Vesta Reyes * Performed By: Dilcia Arevalo RDCS * * Reason For Study: Chest pain * BSA: 1.7 m2 * The study was technically adequate. * There is no comparison study available. * -- Conclusions -- * Ejection Fraction = 55-60%. * There is mild hypokinesis of the mid and apical anterior wall and moderate hypokinesis of the mid and apical anteroseptum. * There is trace mitral regurgitation. * There is trace tricuspid regurgitation. * Doppler findings do not suggest pulmonary hypertension. * Grade I diastolic dysfunction, (abnormal relaxation pattern). Procedure Details * A complete two-dimensional transthoracic echocardiogram was performed (2D, M-mode, Doppler and color flow Doppler). Left Ventricle * The left ventricle is normal in size. * There is normal left ventricular wall thickness. * Ejection Fraction = 55-60%. * Left ventricular systolic function is normal. * There is mild hypokinesis of the mid and apical anterior wall and moderate hypokinesis of the mid and apical anteroseptum. Right Ventricle * The right ventricle is normal size. * The right ventricular systolic function is normal as assessed by tricuspid annular plane systolic excursion (TAPSE) (normal >1.5 cm). Atria * The left atrial size is normal. * Right atrial size is normal. * There is no evidence of atrial septal defect, but resolution does not allow assessment for a patent foramen ovale. Mitral Valve * The mitral valve is normal. * There is no mitral valve stenosis. * There is trace mitral regurgitation. Tricuspid Valve * The tricuspid valve is normal. * There is no tricuspid stenosis. * There is trace tricuspid regurgitation. * Doppler findings do not suggest pulmonary hypertension. Aortic Valve * The aortic valve is trileaflet. * Aortic stenosis is absent. * There is no significant aortic regurgitation. Pulmonic Valve * The pulmonary valve is inadequately visualized, but the Doppler data is adequate for interpretation. * There is no pulmonic valvular stenosis. * Trace pulmonic valvular regurgitation. Great Vessels * The aortic root is normal size. Pericardium/Pleural * There is no pericardial effusion. Great Vessels * Normal inferior vena cava diameter and respiratory variation suggests normal central venous pressure. Left Ventricular Diastolic Function * Grade I diastolic dysfunction, (abnormal relaxation pattern). MMode 2D Measurements and Calculations IVSd 0.93 cm LVIDd 3.3 cm LVIDs 2.1 cm LVPWd 1.1 cm IVS/LVPW 0.81 FS 34.9 % EDV(Teich) 43.2 ml ESV(Teich) 14.9 ml EF(Teich) 65.4 % EDV(cubed) 35.0 ml ESV(cubed) 9.7 ml EF(cubed) 72.4 % LV mass(C)d 98.9 grams LV mass(C)dI 59.0 grams/m\S\2 SV(Teich) 28.2 ml SI(Teich) 16.8 ml/m\S\2 SV(cubed) 25.3 ml SI(cubed) 15.1 ml/m\S\2 Ao root diam 2.5 cm Ao root area 5.0 cm\S\2 ACS 1.7 cm asc Aorta Diam 2.8 cm LVAd ap4 19.9 cm\S\2 LVLd ap4 6.9 cm EDV(MOD-sp4) 47.4 ml EDV(sp4-el) 49.2 ml LVAs ap4 10.7 cm\S\2 LVLs ap4 5.8 cm ESV(MOD-sp4) 16.0 ml ESV(sp4-el) 16.7 ml EF(MOD-sp4) 66.3 % EF(sp4-el) 66.1 % LVAd ap2 20.4 cm\S\2 LVLd ap2 7.2 cm EDV(MOD-sp2) 47.2 ml EDV(sp2-el) 48.8 ml LVAs ap2 11.3 cm\S\2 LVLs ap2 6.0 cm ESV(MOD-sp2) 17.4 ml ESV(sp2-el) 18.1 ml EF(MOD-sp2) 63.2 % EF(sp2-el) 62.9 % LVLd %diff 4.9 % EDV(MOD-bp) 47.3 ml LVLs %diff 3.2 % ESV(MOD-bp) 16.7 ml EF(MOD-bp) 64.7 % SV(MOD-sp4) 31.5 ml SI(MOD-sp4) 18.8 ml/m\S\2 SV(MOD-sp2) 29.9 ml SI(MOD-sp2) 17.8 ml/m\S\2 SV(MOD-bp) 30.6 ml SI(MOD-bp) 18.3 ml/m\S\2 SV(sp4-el) 32.5 ml SI(sp4-el) 19.4 ml/m\S\2 SV(sp2-el) 30.7 ml SI(sp2-el) 18.3 ml/m\S\2 Doppler Measurements and Calculations MV E max jm 91.7 cm/sec MV A max jm 119.2 cm/sec MV E/A 0.77 MV dec time 0.17 sec Ao V2 max 118.6 cm/sec Ao max PG 5.6 mmHg Ao max PG (full) 1.1 mmHg LV V1 max PG 4.5 mmHg LV V1 max 106.2 cm/sec PA V2 max 73.3 cm/sec PA max PG 2.2 mmHg PA acc slope 563.0 cm/sec\S\2 PA acc time 0.11 sec PI end-d jm 93.2 cm/sec TR max jm 203.8 cm/sec PA pr(Accel) 29.0 mmHg
--- NOTE | 2017-03-03 14:37 | Progress Note ---
Internal Med Progress Note Date of Service: Mar 03, 2017. Provider Documentation: SUBJECTIVE: s/p cardiac cath. heart rate in the 60s. no complaints of chest pain or shortness of breath OBJECTIVE: General Appearance: no apparent distress Head: normocephalic, atraumatic Eyes: EOMI ENT: hearing grossly normal, pharynx normal Neck: no JVD, trachea midline Respiratory/Chest: lungs clear, normal breath sounds, no respiratory distress Cardiovascular: heart rate around 60 beats per minute Abdomen/GI: normal bowel sounds, non tender, soft Extremities/Musculoskelatal: normal inspection, no calf tenderness Neurologic/Psych: no motor/sensory deficits, alert, normal mood/affect, oriented x 3 ASSESSMENT & PLAN: 76 year old F with NSTEMI and started on IV heparin drip from 03/02/17, s/p cardiac cath on 03/03/2017 with PCI of proximal LAD with 2.75 x 23 Xience ROMAN, was also loaded with Clopidogrel 600 mg in medical laboratory manager Patient returned to telemetry bed for continued monitoring Heparin infusion has been stopped Disposition: will need Cardiac Rehab, Continue dual-antiplatelet therapy with ASA/Clopidogrel for 1 year, c/w statin and metoprolol Other health issues: ANXIETY DISORDER: cont Ativan PRN , GERD: cont PPI, FULL CODE, DVT PROPHYLAXIS : SCD Bedside echocardiogram performed prior to cardiac cath with stent on 03/03/17 * Ejection Fraction = 55-60%. * There is mild hypokinesis of the mid and apical anterior wall and moderate hypokinesis of the mid and apical anteroseptum. * There is trace mitral regurgitation. * There is trace tricuspid regurgitation. * Doppler findings do not suggest pulmonary hypertension. * Grade I diastolic dysfunction, (abnormal relaxation pattern). Vital Signs: Date Time Temp Pulse Resp B/P (MAP) Pulse Ox O2 Delivery O2 Flow Rate FiO2 03/03/17 13:58 36.7 64 18 142/76 (98) 96 Room Air 03/03/17 13:30 36.6 68 18 140/72 (94) 96 Room Air 03/03/17 13:30 36.6 68 18 138/72 (94) 94 Room Air 03/03/17 13:00 37.0 66 17 144/69 (94) 95 Room Air 03/03/17 12:45 36.7 69 18 136/66 (89) 94 Room Air 03/03/17 12:30 36.7 68 18 146/77 (100) 96 Room Air 03/03/17 12:11 36.6 66 18 140/70 (93) 96 Room Air 03/03/17 12:04 Room Air 03/03/17 12:00 36.7 58 18 144/69 (94) 94 Room Air 03/03/17 11:54 36.7 58 144/69 (94) 94 Room Air 03/03/17 11:19 36.5 60 134/68 (90) 95 Room Air 03/03/17 11:00 95 Room Air 03/03/17 10:50 95 Room Air 03/03/17 08:20 36.5 67 18 120/74 (89) 95 Room Air 03/03/17 08:00 Room Air 03/03/17 03:50 Room Air 03/03/17 03:49 36.8 61 16 122/69 (86) 95 Room Air 03/03/17 00:00 Room Air 03/02/17 23:30 37.0 61 17 145/77 (99) 97 Room Air 03/02/17 20:00 Room Air 03/02/17 19:15 36.5 70 18 166/82 (110) 98 Room Air 03/02/17 18:55 70 18 172/93 97 03/02/17 17:33 70 17 96 03/02/17 17:31 154/87 03/02/17 17:18 68 21 97 03/02/17 17:06 Room Air 03/02/17 17:03 64 17 98 03/02/17 17:01 145/86 03/02/17 16:50 149/89 03/02/17 16:48 69 17 03/02/17 16:41 69 03/02/17 15:44 96 Room Air 03/02/17 15:43 174/84 03/02/17 15:30 36.6 72 20 144/79 97 Room Air Lab Results: Results Past 24 Hours Test 03/02/17 15:50 03/03/17 00:26 03/03/17 00:59 03/03/17 05:06 Range/Units White Blood Count 7.67 7.63 4.8-10.8 K/uL Red Blood Count 4.53 4.27 4.2-5.4 M/uL Hemoglobin 12.6 11.5 12.0-16.0 g/dL Hematocrit 38.7 36.7 37-47 % Mean Corpuscular Volume 85.4 85.9 80-100 fL Mean Corpuscular Hemoglobin 27.8 26.9 25-34 pg Mean Corpuscular Hemoglobin Concent 32.6 31.3 32-36 g/dl Platelet Count 229 224 130-400 K/uL Mean Platelet Volume 9.7 9.8 7.4-10.4 fL Neutrophils (%) (Auto) 63.4 % Lymphocytes (%) (Auto) 27.5 % Monocytes (%) (Auto) 5.6 % Eosinophils (%) (Auto) 3.0 % Basophils (%) (Auto) 0.4 % Neutrophils # (Auto) 4.86 1.4-6.5 K/uL Lymphocytes # (Auto) 2.11 1.2-3.4 K/uL Monocytes # (Auto) 0.43 0.11-0.59 K/uL Eosinophils # (Auto) 0.23 0-0.5 K/uL Basophils # (Auto) 0.03 0-0.2 K/uL RDW Standard Deviation 49.5 51.0 36.4-46.3 fL RDW Coefficient of Variation 15.9 16.2 11.5-14.5 % Immature Granulocyte % (Auto) 0.1 % Immature Granulocyte # (Auto) 0.01 0.00-0.02 K/uL Prothrombin Time 10.0 9.0-12.0 SECONDS Prothromb Time International Ratio 0.9 0.9-1.1 Sodium Level 139 141 136-145 mmol/L Potassium Level 3.8 4.0 3.5-5.1 mmol/L Chloride Level 107 107 98-107 mmol/L Carbon Dioxide Level 27 27 21-32 mmol/L Anion Gap 5.0 7.0 3-11 mmol/L Blood Urea Nitrogen 14 12 7-18 mg/dl Creatinine 0.67 0.62 0.60-1.20 mg/dl Est Creatinine Clear Calc Drug Dose 65.3 70.5 ml/min Estimated GFR () 100.4 103.0 Estimated GFR (Non- 86.6 88.8 BUN/Creatinine Ratio 21.5 19.7 10-20 Random Glucose 101 106 70-99 mg/dl Calcium Level 9.6 9.3 8.5-10.1 mg/dl Total Creatine Kinase 76 53 26-192 U/L Creatine Kinase MB 7.2 4.4 0.5-3.6 ng/ml Creatine Kinase MB Ratio 9.5 8.3 0-3.0 Troponin I 1.210 1.630 0-0.045 ng/ml Activated Partial Thromboplast Time 31.0 69.3 21.0-31.0 SECONDS Partial Thromboplastin Ratio 1.2 2.7 Magnesium Level 2.1 1.8-2.4 mg/dl Triglycerides Level 76 0-150 mg/dl Cholesterol Level 156 0-200 mg/dl HDL Cholesterol 58 mg/dl LDL Cholesterol, Calculated 83 mg/dl VLDL Cholesterol, Calculated 15 mg/dl Cholesterol/HDL Ratio 2.7 Test 03/03/17 08:00 03/03/17 09:30 03/03/17 10:17 03/03/17 10:42 Range/Units Activated Partial Thromboplast Time > 300.0 21.0-31.0 SECONDS Partial Thromboplastin Ratio < 11.0 Total Creatine Kinase 43 26-192 U/L Creatine Kinase MB 2.9 0.5-3.6 ng/ml Creatine Kinase MB Ratio 6.7 0-3.0 Troponin I 1.670 0-0.045 ng/ml Kaolin Activated Coagulation Time 131 219 252 94-140 SECONDS
[2017-03-03] MEDS: ATORVASTATIN 40 MG TAB PO SCH (21:10)
[2017-03-04] VITALS: O2SAT 96
[2017-03-04 04:00] VITALS: O2SAT 94
[2017-03-04 04:03] VITALS: BP 109/68; PULSE 63; TEMP 37.3; O2SAT 94
[2017-03-04 05:46] LABS: HEMATOCRIT 37.1 % (37-47); MEAN CELL VOLUME 85.7 fL (80-100); MEAN CORPUSCULAR HEMOGLOBIN 26.8 pg (25-34); MEAN CORPUSCULAR HGB CONC 31.3 g/dl (32-36); MEAN PLATELET VOLUME 9.6 fL (7.4-10.4); PLATELET COUNT 220 K/uL (130-400); RED BLOOD COUNT 4.33 M/uL (4.2-5.4); WHITE BLOOD COUNT 8.62 K/uL (4.8-10.8)
[2017-03-04 06:23] LABS: BUN/CREATININE RATIO 23.8 (10-20); CALCIUM 9.1 mg/dl (8.5-10.1); CREATININE 0.61 mg/dl (0.60-1.20); MAGNESIUM 2.2 mg/dl (1.8-2.4); POTASSIUM 4.1 mmol/L (3.5-5.1)
[2017-03-04 07:41] VITALS: BP 122/73; PULSE 70; TEMP 36.9; O2SAT 95
[2017-03-04] MEDS: ASPIRIN 81 MG ECTAB PO SCH (08:18)
[2017-03-04] MEDS: METOPROLOL TARTRATE 25 MG TAB PO SCH ×2 (08:18→09:37)
[2017-03-04] MEDS: PANTOprazole SOD 40 MG TAB PO SCH (08:19)
[2017-03-04] MEDS ORDERED: CLOPIDOGREL BISULFATE 75 MG TAB PO SCH (09:00)
[2017-03-04 11:21] VITALS: BP 136/69; PULSE 63; TEMP 36.7; O2SAT 97
--- NOTE | 2017-03-04 12:03 | Cardiology Follow-Up ---
Subjective General Date of Service: Mar 04, 2017. Pt evaluation today including: conversation w/ patient, physical exam, chart review, lab review, review of studies, review of inpatient medication list History of Present Illness The patient is a 76 year old female seen in follow-up. Patient feeling well this morning. No chest discomfort or shortness of breath. No dysrhythmias on telemetry. Tolerating diet medications. Mild right anterior wrist ecchymosis noted. No hematoma. Family present at bedside. Allergies Coded Allergies: No Known Allergies (Verified , 08/28/09) Social History Smoking Status: Never Smoker Hx Tobacco Use In Past Year?: No Hx Alcohol Use - Type And Amou: Yes (wine occasionally) Hx Substance Use - Type And Am: No Review of Systems Respiratory: No cough, No sputum, No wheezing, No shortness of breath, No dyspnea on exertion, No dyspnea at rest, No hemoptysis Cardiac: No chest pain, No orthopnea, No PND, No edema, No claudication, No palpitations Physical Exam Vital Signs Last Vital Signs Documentation Date Time Temp Pulse Resp B/P (MAP) Pulse Ox O2 Delivery O2 Flow Rate FiO2 03/04/17 08:00 Room Air 03/04/17 07:41 36.9 70 20 122/73 (89) 95 Physical Exam Constitutional: General Apperance: heathly-appearing Level of Distress: NAD Ambulation: ambulating normally Head: normocephalic, atraumatic ENMT: normal ENT inspection Lungs: Auscultation: breath sounds normal, no wheezing, no rales/crackles, no rhonchi Cardiovascular: Heart Auscultation: RRR, normal S1, normal S2, no murmurs, no rubs Peripheral Pulses: Radial Pulse: normal on the left, normal on the right Abdomen: Bowel Sounds: normal Inspection & Palpation: soft, non-distended, no tenderness, guarding & rebound Extremities: no cyanosis, no edema, no clubbing, no ulcers, pertinent finding ( mild right anterior wrist ecchymosis, no hematoma) Neurologic: Gait & Station: pertinent finding (no focal motor deficit) Cranial Nerves: grossly intact Assessment and Plan Assessment and Plan FINAL IMPRESSION: 1. NSTEMI s/p ROMAN to LAD with residual 50% ostial RCA 2. Hypertension -- controlled 3. Dyslipidemia -- statin therapy initiated on admission. 4. Family history of premature coronary artery disease. PLAN AND RECOMMENDATIONS: Post catheterization activity restrictions reviewed. Importance of continuing dual antiplatelet therapy uninterrupted for a minimum of 12 months post PCI discussed. Patient will also continue high-dose atorvastatin and low dose Toprol-XL to time of discharge. Instructed to avoid NSAID use in the future. All questions answered to her satisfaction. Cardiac rehabilitation consultation ordered. Patient will be discharged home today with 2 week outpatient follow-up. Laboratory Results Last 24 Hours Test 03/04/17 05:16 White Blood Count 8.62 K/uL Red Blood Count 4.33 M/uL Hemoglobin 11.6 g/dL Hematocrit 37.1 % Mean Corpuscular Volume 85.7 fL Mean Corpuscular Hemoglobin 26.8 pg Mean Corpuscular Hemoglobin Concent 31.3 g/dl RDW Standard Deviation 49.8 fL RDW Coefficient of Variation 15.9 % Platelet Count 220 K/uL Mean Platelet Volume 9.6 fL Sodium Level 138 mmol/L Potassium Level 4.1 mmol/L Chloride Level 109 mmol/L Carbon Dioxide Level 25 mmol/L Anion Gap 4.0 mmol/L Blood Urea Nitrogen 14 mg/dl Creatinine 0.61 mg/dl Est Creatinine Clear Calc Drug Dose 71.1 ml/min Estimated GFR () 103.5 Estimated GFR (Non- 89.3 BUN/Creatinine Ratio 23.8 Random Glucose 119 mg/dl Calcium Level 9.1 mg/dl Magnesium Level 2.2 mg/dl
[2017-03-04] MEDS ORDERED: TPRSR25 PO (12:07)
[2017-03-04] MEDS ORDERED: ASPEC81 PO (12:07)
[2017-03-04] MEDS ORDERED: NTRSLP4 SL (12:07)
[2017-03-04] MEDS ORDERED: PLV75 PO (12:07)
[2017-03-04] MEDS ORDERED: LPT40 PO (12:07)
--- NOTE | 2017-03-04 12:09 | Discharge Instructions ---
Discharge Instructions Procedure Procedure Date: Mar 04, 2017. Reason for Visit: Nstemi. Discharge Discharge Date: Mar 04, 2017. Discharge Diagnosis: Heart attack (NSTEMI) drug eluting stent placement in the LAD Last Recorded Wt (Kilograms): 67.600 Anesthesia Post Anesthesia Instructions: If you have had General Anesthesia or IV Sedation: * Do not drive today. * Resume driving when surgeon permits. * Do not make important decisions or sign legal documents today. * Call surgeon for: 1. Temperature elevations greater than 101 degrees F. 2. Uncontrollable pain. 3. Excessive bleeding. 4. Persistent nausea and vomiting. 5. Medication intolerance (nausea, vomiting or rash). * For nausea and vomiting use only clear liquids such as: tea, soda, bouillon until nausea subsides, then gradually increase diet as tolerated. * If you have any concerns or questions, call your surgeon's office. If physician is unavailable and it is an emergency, call 911 or go to the nearest emergency room. Instructions Activity Recommendations: limitations as noted below Recommended Home Diet: low cholesterol Allergies: Coded Allergies: No Known Allergies (Verified , 08/28/09) Provider Instructions ACTIVITY RECOMMENDATIONS: It is common to feel weak and fatigue for a few days. * Do not drive or operate any motorized equipment for the next three days. * Limit stair usage (2 or 3 trips a day only) for the next three days. * Do not lift anything heavier than 10 pounds for the next three days. * Do not engage in vigorous exercise or any sports for the next five days. * You may shower the day after your procedure, but do not immerse the area for three days. Cleanse the site gently with soap and water. SPECIAL CARE INSTRUCTIONS: * You may replace the pressure dressing or band-aid the morning after the procedure. * After your procedure, it is normal to have a small bruise or small lump at the site. Examine your site daily for any change in the bruise or lump, redness, swelling, drainage or numbness. Notify your doctor if any change. BLEEDING: * If there is a small amount of bleeding at the site, lie down and apply firm pressure with a clean cloth for ten minutes. When the bleeding stops, lie quietly keeping the procedure limb straight for six hours. Notify your doctor as soon as possible. * If the bleeding does not stop after ten minutes or if there is a large amount of bleeding or spurting, call 911 immediately. Continue to lie down and hold firm pressure until help arrives. SKIN IRRITATION: * You may experience some redness and/or swelling in the area where radiation was administered. If any skin irritation occurs, please contact your family physician. FOLLOW UP VISIT: Keep any scheduled doctor appointments. Follow Up Follow-up with: Dr. Sena in 2 weeks. Office phone number [phone]. Isabella Reeves Recommendations: Call your doctor if: * Temperature above 101 degrees * Pain not relieved by pain medicine ordered * There is increased drainage or redness from any incision * You have any unanswered questions or concerns. Your Doctors Instructions noted above were prepared by provider Will Sena. Patient Signature Section: Patient Instructions Signature Page Donita Swain Patient (or Guardian) Signature/Date: I have read and understand the instructions given to me by my caregivers. Caregiver/RN/Doctor Signature/Date: The above-named patient and/or guardian has received patient instructions on this date. + Original Patient Signature Page (only) stays with chart. Please make copy for patient.
[2017-03-04 12:11] VITALS: BP 122/73; PULSE 70; TEMP 36.9; O2SAT 95
--- NOTE | 2017-03-04 12:35 | Progress Note ---
Internal Med Progress Note Date of Service: Mar 04, 2017. Provider Documentation: SUBJECTIVE: s/p cardiac cath on 03/03/17. no complaints of chest pain or shortness of breath OBJECTIVE: General Appearance: no apparent distress Head: normocephalic, atraumatic Eyes: EOMI ENT: hearing grossly normal, pharynx normal Neck: no JVD, trachea midline Respiratory/Chest: lungs clear, normal breath sounds, no respiratory distress Cardiovascular: regular rhythm Abdomen/GI: normal bowel sounds, non tender, soft Extremities/Musculoskelatal: normal inspection, no calf tenderness Neurologic/Psych: no motor/sensory deficits, alert, normal mood/affect, oriented x 3 ASSESSMENT & PLAN: 76 year old F with NSTEMI and started on IV heparin drip from 03/02/17, Bedside echocardiogram performed prior to cardiac cath with stent on 03/03/17 * Ejection Fraction = 55-60%. * There is mild hypokinesis of the mid and apical anterior wall and moderate hypokinesis of the mid and apical anteroseptum. * There is trace mitral regurgitation. * There is trace tricuspid regurgitation. * Doppler findings do not suggest pulmonary hypertension. * Grade I diastolic dysfunction, (abnormal relaxation pattern). 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 Patient returned to telemetry bed for continued monitoring. Heparin infusion has been stopped. Patient monitored on telemetry until 03/04/17 "Post Cardiac Cath discharge instructions Procedure Procedure Date: Mar 04, 2017. Reason for Visit: Nstemi. Discharge Discharge Date: Mar 04, 2017. Discharge Diagnosis: Heart attack (NSTEMI) drug eluting stent placement in the LAD Last Recorded Wt (Kilograms): 67.600 Anesthesia Post Anesthesia Instructions: If you have had General Anesthesia or IV Sedation: * Do not drive today. * Resume driving when surgeon permits. * Do not make important decisions or sign legal documents today. * Call surgeon for: 1. Temperature elevations greater than 101 degrees F. 2. Uncontrollable pain. 3. Excessive bleeding. 4. Persistent nausea and vomiting. 5. Medication intolerance (nausea, vomiting or rash). * For nausea and vomiting use only clear liquids such as: tea, soda, bouillon until nausea subsides, then gradually increase diet as tolerated. * If you have any concerns or questions, call your surgeon's office. If physician is unavailable and it is an emergency, call 911 or go to the nearest emergency room. Instructions Activity Recommendations: limitations as noted below Recommended Home Diet: low cholesterol Allergies: Coded Allergies: No Known Allergies (Verified , 08/28/09) Provider Instructions ACTIVITY RECOMMENDATIONS: It is common to feel weak and fatigue for a few days. * Do not drive or operate any motorized equipment for the next three days. * Limit stair usage (2 or 3 trips a day only) for the next three days. * Do not lift anything heavier than 10 pounds for the next three days. * Do not engage in vigorous exercise or any sports for the next five days. * You may shower the day after your procedure, but do not immerse the area for three days. Cleanse the site gently with soap and water. SPECIAL CARE INSTRUCTIONS: * You may replace the pressure dressing or band-aid the morning after the procedure. * After your procedure, it is normal to have a small bruise or small lump at the site. Examine your site daily for any change in the bruise or lump, redness, swelling, drainage or numbness. Notify your doctor if any change. BLEEDING: * If there is a small amount of bleeding at the site, lie down and apply firm pressure with a clean cloth for ten minutes. When the bleeding stops, lie quietly keeping the procedure limb straight for six hours. Notify your doctor as soon as possible. * If the bleeding does not stop after ten minutes or if there is a large amount of bleeding or spurting, call 911 immediately. Continue to lie down and hold firm pressure until help arrives. SKIN IRRITATION: * You may experience some redness and/or swelling in the area where radiation was administered. If any skin irritation occurs, please contact your family physician. FOLLOW UP VISIT: Keep any scheduled doctor appointments. Follow Up Follow-up with: Dr. Sena in 2 weeks. Office phone number [phone]. Isabella Reeves Recommendations: Call your doctor if: * Temperature above 101 degrees * Pain not relieved by pain medicine ordered * There is increased drainage or redness from any incision * You have any unanswered questions or concerns. Your Doctors Instructions noted above were prepared by provider Will Sena" Disposition: will need Cardiac Rehab, Continue dual-antiplatelet therapy with ASA/Clopidogrel for 1 year, c/w statin and metoprolol Discharge plans: discharge to home appointments cardio rehab consult ordered 03/07/2017 10:00 AM Bone Density/Dexa Ancillary [facility] 03/10/2017 11:20 AM Vesta Reyes MD General Internal Medicine [facility] Cardiology appointment with Dr. Sena in 2 weeks. Office phone number [phone]. Vital Signs: Date Time Temp Pulse Resp B/P (MAP) Pulse Ox O2 Delivery O2 Flow Rate FiO2 03/04/17 12:11 36.9 70 20 95 Room Air 03/04/17 11:21 36.7 63 20 136/69 (91) 97 Room Air 03/04/17 08:00 Room Air 03/04/17 07:41 36.9 70 20 122/73 (89) 95 Room Air 03/04/17 04:03 37.3 63 18 109/68 (82) 94 Room Air 03/04/17 04:00 94 Room Air 03/04/17 00:00 96 Room Air 03/03/17 23:57 36.4 75 19 132/74 (93) 96 Room Air 03/03/17 20:00 98 Room Air 03/03/17 19:26 36.5 79 18 156/80 (105) 98 Room Air 03/03/17 18:00 36.6 74 18 144/74 (97) 94 Room Air 03/03/17 17:00 36.5 68 16 142/72 (95) 95 Room Air 03/03/17 16:00 36.6 77 18 142/72 (95) 95 Room Air 03/03/17 16:00 36.6 68 18 138/72 (94) 94 Room Air 03/03/17 15:44 36.8 69 18 137/75 (95) 94 Room Air 03/03/17 15:26 Room Air 03/03/17 15:00 36.6 74 18 138/68 (91) 95 Room Air 03/03/17 13:58 36.7 64 18 142/76 (98) 96 Room Air 03/03/17 13:30 36.6 68 18 140/72 (94) 96 Room Air 03/03/17 13:30 36.6 68 18 138/72 (94) 94 Room Air 03/03/17 13:00 37.0 66 17 144/69 (94) 95 Room Air 03/03/17 12:45 36.7 69 18 136/66 (89) 94 Room Air Lab Results: Results Past 24 Hours Test 03/04/17 05:16 Range/Units White Blood Count 8.62 4.8-10.8 K/uL Red Blood Count 4.33 4.2-5.4 M/uL Hemoglobin 11.6 12.0-16.0 g/dL Hematocrit 37.1 37-47 % Mean Corpuscular Volume 85.7 80-100 fL Mean Corpuscular Hemoglobin 26.8 25-34 pg Mean Corpuscular Hemoglobin Concent 31.3 32-36 g/dl RDW Standard Deviation 49.8 36.4-46.3 fL RDW Coefficient of Variation 15.9 11.5-14.5 % Platelet Count 220 130-400 K/uL Mean Platelet Volume 9.6 7.4-10.4 fL Sodium Level 138 136-145 mmol/L Potassium Level 4.1 3.5-5.1 mmol/L Chloride Level 109 98-107 mmol/L Carbon Dioxide Level 25 21-32 mmol/L Anion Gap 4.0 3-11 mmol/L Blood Urea Nitrogen 14 7-18 mg/dl Creatinine 0.61 0.60-1.20 mg/dl Est Creatinine Clear Calc Drug Dose 71.1 ml/min Estimated GFR () 103.5 Estimated GFR (Non- 89.3 BUN/Creatinine Ratio 23.8 10-20 Random Glucose 119 70-99 mg/dl Calcium Level 9.1 8.5-10.1 mg/dl Magnesium Level 2.2 1.8-2.4 mg/dl
--- NOTE | 2017-03-04 12:40 | Discharge Instructions ---
Discharge Instructions Date of Service Mar 04, 2017. Admission Reason for Admission: Nstemi Discharge Discharge Diagnosis / Problem: NSTEMI, crdia cath with drug eluting stent Discharge Goals Goal(s): Improve function, Improve disease control Activity Recommendations Activity Limitations: per Instructions/Follow-up section Exercise/Sports Limitations: until after follow-up appointment May Resume Sexual Activity: after follow-up appointment Shower/Bathe: no limitations . Instructions / Follow-Up Instructions / Follow-Up 76 year old F with NSTEMI and started on IV heparin drip from 03/02/17, Bedside echocardiogram performed prior to cardiac cath with stent on 03/03/17 * Ejection Fraction = 55-60%. * There is mild hypokinesis of the mid and apical anterior wall and moderate hypokinesis of the mid and apical anteroseptum. * There is trace mitral regurgitation. * There is trace tricuspid regurgitation. * Doppler findings do not suggest pulmonary hypertension. * Grade I diastolic dysfunction, (abnormal relaxation pattern). 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 Patient returned to telemetry bed for continued monitoring. Heparin infusion has been stopped. Patient monitored on telemetry until 03/04/17 "Post Cardiac Cath discharge instructions Procedure Procedure Date: Mar 04, 2017. Reason for Visit: Nstemi. Discharge Discharge Date: Mar 04, 2017. Discharge Diagnosis: Heart attack (NSTEMI) drug eluting stent placement in the LAD Last Recorded Wt (Kilograms): 67.600 Anesthesia Post Anesthesia Instructions: If you have had General Anesthesia or IV Sedation: * Do not drive today. * Resume driving when surgeon permits. * Do not make important decisions or sign legal documents today. * Call surgeon for: 1. Temperature elevations greater than 101 degrees F. 2. Uncontrollable pain. 3. Excessive bleeding. 4. Persistent nausea and vomiting. 5. Medication intolerance (nausea, vomiting or rash). * For nausea and vomiting use only clear liquids such as: tea, soda, bouillon until nausea subsides, then gradually increase diet as tolerated. * If you have any concerns or questions, call your surgeon's office. If physician is unavailable and it is an emergency, call 911 or go to the nearest emergency room. Instructions Activity Recommendations: limitations as noted below Recommended Home Diet: low cholesterol Allergies: Coded Allergies: No Known Allergies (Verified , 08/28/09) Provider Instructions ACTIVITY RECOMMENDATIONS: It is common to feel weak and fatigue for a few days. * Do not drive or operate any motorized equipment for the next three days. * Limit stair usage (2 or 3 trips a day only) for the next three days. * Do not lift anything heavier than 10 pounds for the next three days. * Do not engage in vigorous exercise or any sports for the next five days. * You may shower the day after your procedure, but do not immerse the area for three days. Cleanse the site gently with soap and water. SPECIAL CARE INSTRUCTIONS: * You may replace the pressure dressing or band-aid the morning after the procedure. * After your procedure, it is normal to have a small bruise or small lump at the site. Examine your site daily for any change in the bruise or lump, redness, swelling, drainage or numbness. Notify your doctor if any change. BLEEDING: * If there is a small amount of bleeding at the site, lie down and apply firm pressure with a clean cloth for ten minutes. When the bleeding stops, lie quietly keeping the procedure limb straight for six hours. Notify your doctor as soon as possible. * If the bleeding does not stop after ten minutes or if there is a large amount of bleeding or spurting, call 911 immediately. Continue to lie down and hold firm pressure until help arrives. SKIN IRRITATION: * You may experience some redness and/or swelling in the area where radiation was administered. If any skin irritation occurs, please contact your family physician. FOLLOW UP VISIT: Keep any scheduled doctor appointments. Follow Up Follow-up with: Dr. Sena in 2 weeks. Office phone number [phone]. Isabella Francesy Recommendations: Call your doctor if: * Temperature above 101 degrees * Pain not relieved by pain medicine ordered * There is increased drainage or redness from any incision * You have any unanswered questions or concerns. Your Doctors Instructions noted above were prepared by provider Will Sena" Disposition: will need Cardiac Rehab, Continue dual-antiplatelet therapy with ASA/Clopidogrel for 1 year, c/w statin and metoprolol Discharge plans: discharge to home appointments cardio rehab consult ordered 03/07/2017 10:00 AM Bone Density/Dexa Ancillary [facility] 03/10/2017 11:20 AM Vesta Reyes MD General Internal Medicine [facility] Cardiology appointment with Dr. Sena in 2 weeks. Office phone number [phone]. Vital Signs: Current Hospital Diet Patient's current hospital diet: AHA Diet (Heart Healthy) Discharge Diet Recommended Diet: AHA Diet (Heart Healthy) Procedures Procedures Performed: cardiac cath with drug eleuting stent Pending Studies Studies pending at discharge: no Laboratory Results 03/04/17 05:16 03/04/17 05:16 Test 03/02/17 15:50 03/03/17 05:06 03/03/17 08:00 03/03/17 10:42 Immature Granulocyte % (Auto) 0.1 % White Blood Count 7.67 K/uL (4.8-10.8) Red Blood Count 4.53 M/uL (4.2-5.4) Hemoglobin 12.6 g/dL (12.0-16.0) Hematocrit 38.7 % (37-47) Mean Corpuscular Volume 85.4 fL (80-100) Mean Corpuscular Hemoglobin 27.8 pg (25-34) Mean Corpuscular Hemoglobin Concent 32.6 g/dl (32-36) Platelet Count 229 K/uL (130-400) Mean Platelet Volume 9.7 fL (7.4-10.4) Neutrophils (%) (Auto) 63.4 % Lymphocytes (%) (Auto) 27.5 % Monocytes (%) (Auto) 5.6 % Eosinophils (%) (Auto) 3.0 % Basophils (%) (Auto) 0.4 % Neutrophils # (Auto) 4.86 K/uL (1.4-6.5) Lymphocytes # (Auto) 2.11 K/uL (1.2-3.4) Monocytes # (Auto) 0.43 K/uL (0.11-0.59) Eosinophils # (Auto) 0.23 K/uL (0-0.5) Basophils # (Auto) 0.03 K/uL (0-0.2) Immature Granulocyte # (Auto) 0.01 K/uL (0.00-0.02) Prothrombin Time 10.0 SECONDS (9.0-12.0) Prothromb Time International Ratio 0.9 (0.9-1.1) Triglycerides Level 76 mg/dl (0-150) Cholesterol Level 156 mg/dl (0-200) HDL Cholesterol 58 mg/dl LDL Cholesterol, Calculated 83 mg/dl VLDL Cholesterol, Calculated 15 mg/dl Cholesterol/HDL Ratio 2.7 Activated Partial Thromboplast Time > 300.0 SECONDS Partial Thromboplastin Ratio < 11.0 Total Creatine Kinase 43 U/L (26-192) Creatine Kinase MB 2.9 ng/ml (0.5-3.6) Creatine Kinase MB Ratio 6.7 (0-3.0) Troponin I 1.670 ng/ml (0-0.045) Kaolin Activated Coagulation Time 252 SECONDS (94-140) Test 03/04/17 05:16 Red Blood Count 4.33 M/uL (4.2-5.4) Mean Corpuscular Volume 85.7 fL (80-100) Mean Corpuscular Hemoglobin 26.8 pg (25-34) Mean Corpuscular Hemoglobin Concent 31.3 g/dl (32-36) RDW Standard Deviation 49.8 fL (36.4-46.3) RDW Coefficient of Variation 15.9 % (11.5-14.5) Mean Platelet Volume 9.6 fL (7.4-10.4) Anion Gap 4.0 mmol/L (3-11) Est Creatinine Clear Calc Drug Dose 71.1 ml/min Estimated GFR () 103.5 Estimated GFR (Non- 89.3 BUN/Creatinine Ratio 23.8 (10-20) Calcium Level 9.1 mg/dl (8.5-10.1) Magnesium Level 2.2 mg/dl (1.8-2.4) Lipid Panel Test 03/03/17 05:06 Range/Units Triglycerides Level 76 0-150 mg/dl Cholesterol Level 156 0-200 mg/dl HDL Cholesterol 58 mg/dl Cholesterol/HDL Ratio 2.7 LDL Cholesterol, Calculated 83 mg/dl Medical Emergencies . Who to Call and When: Medical Emergencies: If at any time you feel your situation is an emergency, please call 911 immediately. . Non-Emergent Contact Non-Emergency issues call your: Primary Care Provider, Supervisor [employer] . . "Provider Documentation" section prepared by Amor Queen. . VTE Core Measure Inpt VTE Proph given/why not?: Unfractionated heparin SQ, Other Anticoagulation
--- NOTE | 2017-03-04 12:42 | Discharge Summary ---
Discharge Summary Date of Service Mar 04, 2017. Discharge Summary Admission Date: Mar 02, 2017 at 18:20 Discharge Date: Mar 04, 2017 Discharge Disposition: Home Principal Diagnosis: NSTEMI, cardiac cath with drug eluting stent placed Consultations: cardiology Medication Reconciliation New Medications: Aspirin (Aspirin EC Low Dose) 81 Mg Ectab 81 MG PO QAM for 30 Days, #30 TAB 6 Refills Atorvastatin (Atorvastatin Calcium) 40 Mg Tab 80 MG PO HS for 30 Days, #30 TAB 6 Refills Clopidogrel Bisulfate (Clopidogrel) 75 Mg Tab 75 MG PO QAM for 30 Days, #30 TAB 6 Refills Metoprolol Succinate (Metoprolol Succinate ER) 25 Mg Tabcr 25 MG PO QAM for 30 Days, #30 TABS 6 Refills Nitroglycerin (Nitrostat) 0.4 Mg/1 Tab Subl 0.4 MG SL UD PRN for Chest Pain for 30 Days, #1 BTL 6 Refills Continued Medications: Hbzkcwz-Diwxrcfxwgoyk-Nlvtcsbq (Excedrin Migraine) 1 Tab Tab 2 TABLETS PO Q6H PRN for Pain Aspirin-Caffeine (Kevin Back & Body Pain Ex) 1 Tab Tab 1 TAB PO PRN UD Buspirone Hcl (Buspar) 15 Mg Tab 7.5 MG PO BID PRN for Anxiety, TAB Calcium Ascorbate (Vitamin C) 500 Mg Tab 500 MG PO DAILY Cholecalciferol (Vitamin D 1000 Unit) 1,000 Unit Cap 1000 INTER.UNIT PO DAILY, CAP Cyanocobalamin (Vitamin B-12) 1,000 Mcg Tab 1000 MCG PO DAILY, TAB Ferrous Sulfate (Iron) 325 Mg Tab 325 MG PO DAILY Fluticasone Propionate (Nasal) (Flonase Allergy Relief) 50 Mcg/Act Spr 2 SPRAYS BEATA DAILY PRN for Nasal Congestion Lorazepam (Ativan) 0.5 Mg Tab 0.5 MG PO BID PRN for Anxiety, TAB Omeprazole (Prilosec) 20 Mg Capcr 20 MG PO DAILY, 0 Refills [Calcium] () 1250 MG PO Admission Information HPI (per Admitting provider): This is a 76 yo F with no significant past medical history -presented to ED with substernal chest pain , radiation to left arm , left side of her Jaw her symptom occurred approx at 2 PM ,she was talking to her friend over phone , started to have chest discomfort . initially felt like burning sensation in mid chest , leading to chest heaviness, SOB , numbness on left arm and shoulder , to jaw -left side of her teeth and gum area her symptom resolved after few minutes did not had any dizzy spell , no nausea or diaphoresis had similar episode on Tuesday while she was walking ( usually walks 1 mile ) - she had to turn around after half way due to chest discomfort , her symptom resolved with rest On Tuesday as she was sitting and watching TV had similar episode in the ER pt was chest pain free , EKG shows inverted T wave in AVL, Lead I and flatten T wave in V5-V6 Troponin elevated to 1.210 with elevated CKMB pt does not have prior hx of CA or cardiac disease Has Family hx of CAD -mother had unstable angina , had angioplasty done at her late 60's Father had acute CA at age 40 's leading to heart failure , underwent CABG Her Younger brother last year form Acute CA ( her brother is 9 yrs younger ) pt admitted to [facility] for NSTEMI at present chest pain free started on IV heparin gtt form ER case D/w Cardiology -ordered NPO past midnight for Cardiac Cath tomorrow Physical Exam (per Admitting): General Appearance: no apparent distress Head: normocephalic, atraumatic Eyes: normal inspection, PERRL, EOMI, sclerae normal ENT: normal ENT inspection, hearing grossly normal, pharynx normal Neck: supple, no adenopathy, thyroid normal, no JVD, no carotid bruits, trachea midline Respiratory/Chest: chest non-tender, lungs clear, normal breath sounds, no respiratory distress Cardiovascular: regular rate, rhythm, no edema, no gallop, no JVD, no murmur , normal peripheral pulses Abdomen/GI: normal bowel sounds, non tender, soft Extremities/Musculoskelatal: normal inspection, no calf tenderness, normal capillary refill, no pedal edema, normal range of motion Neurologic/Psych: no motor/sensory deficits, alert, normal mood/affect, oriented x 3 Skin: normal color, warm/dry, no rash Lymphatic: no adenopathy Hospital Course 76 year old F with NSTEMI and started on IV heparin drip from 03/02/17, Bedside echocardiogram performed prior to cardiac cath with stent on 03/03/17 * Ejection Fraction = 55-60%. * There is mild hypokinesis of the mid and apical anterior wall and moderate hypokinesis of the mid and apical anteroseptum. * There is trace mitral regurgitation. * There is trace tricuspid regurgitation. * Doppler findings do not suggest pulmonary hypertension. * Grade I diastolic dysfunction, (abnormal relaxation pattern). s/p cardiac cath on 03/03/2017 with PCI of proximal LAD with 2.75 x 23 Xience ROMAN , was also loaded with Clopidogrel 600 mg in medical lab technician. Patient returned to telemetry bed for continued monitoring. Heparin infusion has been stopped. Patient monitored on telemetry until 03/04/17 "Post Cardiac Cath discharge instructions Procedure Procedure Date: Mar 04, 2017. Reason for Visit: Nstemi. Discharge Discharge Date: Mar 04, 2017. Discharge Diagnosis: Heart attack (NSTEMI) drug eluting stent placement in the LAD Last Recorded Wt (Kilograms): 67.600 Anesthesia Post Anesthesia Instructions: If you have had General Anesthesia or IV Sedation: * Do not drive today. * Resume driving when surgeon permits. * Do not make important decisions or sign legal documents today. * Call surgeon for: 1. Temperature elevations greater than 101 degrees F. 2. Uncontrollable pain. 3. Excessive bleeding. 4. Persistent nausea and vomiting. 5. Medication intolerance (nausea, vomiting or rash). * For nausea and vomiting use only clear liquids such as: tea, soda, bouillon until nausea subsides, then gradually increase diet as tolerated. * If you have any concerns or questions, call your surgeon's office. If physician is unavailable and it is an emergency, call 911 or go to the nearest emergency room. Instructions Activity Recommendations: limitations as noted below Recommended Home Diet: low cholesterol Allergies: Coded Allergies: No Known Allergies (Verified , 08/28/09) Provider Instructions ACTIVITY RECOMMENDATIONS: It is common to feel weak and fatigue for a few days. * Do not drive or operate any motorized equipment for the next three days. * Limit stair usage (2 or 3 trips a day only) for the next three days. * Do not lift anything heavier than 10 pounds for the next three days. * Do not engage in vigorous exercise or any sports for the next five days. * You may shower the day after your procedure, but do not immerse the area for three days. Cleanse the site gently with soap and water. SPECIAL CARE INSTRUCTIONS: * You may replace the pressure dressing or band-aid the morning after the procedure. * After your procedure, it is normal to have a small bruise or small lump at the site. Examine your site daily for any change in the bruise or lump, redness, swelling, drainage or numbness. Notify your doctor if any change. BLEEDING: * If there is a small amount of bleeding at the site, lie down and apply firm pressure with a clean cloth for ten minutes. When the bleeding stops, lie quietly keeping the procedure limb straight for six hours. Notify your doctor as soon as possible. * If the bleeding does not stop after ten minutes or if there is a large amount of bleeding or spurting, call 911 immediately. Continue to lie down and hold firm pressure until help arrives. SKIN IRRITATION: * You may experience some redness and/or swelling in the area where radiation was administered. If any skin irritation occurs, please contact your family physician. FOLLOW UP VISIT: Keep any scheduled doctor appointments. Follow Up Follow-up with: Dr. Sena in 2 weeks. Office phone number [phone]. [facility] Recommendations: Call your doctor if: * Temperature above 101 degrees * Pain not relieved by pain medicine ordered * There is increased drainage or redness from any incision * You have any unanswered questions or concerns. Your Doctors Instructions noted above were prepared by provider Will Sena" Disposition: will need Cardiac Rehab, Continue dual-antiplatelet therapy with ASA/Clopidogrel for 1 year, c/w statin and metoprolol Discharge plans: discharge to home appointments cardio rehab consult ordered 03/07/2017 10:00 AM Bone Density/Dexa Ancillary [facility] 03/10/2017 11:20 AM Vesta Reyes MD General Internal Medicine [facility] Cardiology appointment with Dr. Sena in 2 weeks. Office phone number [phone]. Total time spent on discharge = 60 minutes This includes examination of the patient, discharge planning, medication reconciliation, and communication with other providers. Discharge Instructions see above
[2017-03-04] MEDS ORDERED: ATORVASTATIN 40 MG TAB PO SCH (21:00)
[2017-03-05] MEDS ORDERED: METOPROLOL SUCC 25MG EXT REL TAB PO SCH (09:00)
== END 2017-03-04 13:37 | disposition home or self-care (01) | DRG 247 ==
LOC: C.EDB 15:10 → C.2T 18:20 → ENRESERV 18:31
PROVIDERS: ADMIT Hospitalist; ATTEND Hospitalist
PROC: 0270346 Dilation of Coronary Artery, One Artery, Bifurcation, with Drug-eluting Intraluminal Device, Percutaneous Approach (ICD-10-PCS; 2017-03-03)
PROC: B2111ZZ Fluoroscopy of Multiple Coronary Arteries using Low Osmolar Contrast (ICD-10-PCS; principal; 2017-03-03 08:39)
PROC: 4A023N7 Measurement of Cardiac Sampling and Pressure, Left Heart, Percutaneous Approach (ICD-10-PCS; principal; 2017-03-03 08:39)
DX: I21.4 Non-ST elevation (NSTEMI) myocardial infarction (principal); I25.10 Atherosclerotic heart disease of native coronary artery without angina pectoris; I10 Essential (primary) hypertension; E78.5 Hyperlipidemia, unspecified; K21.9 Gastro-esophageal reflux disease without esophagitis; F41.9 Anxiety disorder, unspecified; Z82.49 Family history of ischemic heart disease and other diseases of the circulatory system; Z79.82 Long term (current) use of aspirin; Z79.899 Other long term (current) drug therapy

== ENCOUNTER → 2017-11-17 | Outpatient (CLI) | payer OTHER ==
[~2017-11-17] MED LIST changes: -ALBU1AER9 INH; -ASCO1CAP3 PO; +ASPI-232 PO; +ASPI-390 PO; -ASPI1TAB4 PO; +ATOR-26 PO; -AZITTAB PO; -BENZ100C84 PO; +CALC500T72 PO; -CHOL100010 PO; +CHOL100027 PO; +CYAN10005 PO; +DENO60SO INJ; -ESTR1CRE PV; +FERR1TAB23 PO; -FERR325T74 PO; +FLUT0.15 NAE; +LORA-741 PO; +NTRSLP4 SL; +PANT40TA PO; +PLV75 PO; -PRED20TA PO; -PRM625 PO; +TPRSR25 PO; +TURM1CAP2 PO
--- NOTE | 2017-11-17 16:06 | MAMMOGRAPHY REPORT ---
BILATERAL DIGITAL SCREENING MAMMOGRAM TOMOSYNTHESIS WITH CAD: 11/17/2017 CLINICAL HISTORY: Routine screening. The patient has no current complaints. TECHNIQUE: The study was acquired using full field digital technology and interpreted from soft copy. Breast tomosynthesis in addition to standard 2D mammography was performed. Current study was also ev aluated with a Computer Aided Detection (CAD) system. COMPARISON: Comparison is made to exams dated: 11/15/2016 mammogram, 11/13/2015 mammogram, 11/11/2014 m ammogram, 11/09/2013 mammogram, 11/08/2012 mammogram, and 11/08/2011 mammogram - [facility]. BREAST COMPOSITION: The tissue of both breasts is heterogeneously dense, which may obscure small mass es. FINDINGS: No suspicious masses, calcifications, or areas of architectural distortion are noted in either breast . There has been no significant interval change compared to prior exams. Lateral asymmetries are sta ble compared to prior exams. Faint benign-appearing calcifications in the right upper outer quadrant are stable dating back to at least the 2008 exam. IMPRESSION: There is no mammographic evidence of malignancy. A 1 year screening mammogram is recommended.( 019) The patient will receive written notification of the results. Some breast cancers are not detected with mammography. A negative mammographic report should not joanna y biopsy if a clinically suggestive mass is present. Chioma Dexter M.D. /:11/17/2017 15:20:24 Manager Office: Ondina Padilla, RT(R)(M), [facility] letter sent: Normal 1/2 BI-RADS Code: ACR BI-RADS Category 2: Benign
== END | disposition home or self-care (01) ==
LOC: C.MAMM 10:55
PROVIDERS: ATTEND Internal Medicine
DX: Z12.31 Encounter for screening mammogram for malignant neoplasm of breast (principal)

== ENCOUNTER 2023-08-29 17:34 | Inpatient (IN) ==
[2023-08-29 18:08] LABS: Basophils # (auto) 0.03 K/uL (0.00-0.20); Basophils % (auto) 0.3 %; Eosinophils # (auto) 0.27 K/uL (0.00-0.50); Eosinophils % (auto) 2.5 %; Hematocrit (blood only) 41.3 % (37.0-47.0); Hemoglobin 13.4 g/dl (12.0-16.0); Immature Granulocytes # (auto) 0.03 K/uL (0.01-0.20); Immature Granulocytes % (auto) 0.3 %; Lymphocytes # (auto) 0.72 K/uL (1.20-3.40); Lymphocytes % (auto) 6.7 %; Mean Corpuscular Hgb Conc 32.4 g/dL (32.0-36.0); Mean Corpuscular Volume 86.2 fL (80.0-100.0); Mean Platelet Volume 9.9 fL (9.4-12.4); Monocytes # (auto) 0.43 K/uL (0.11-0.59); Neutrophils # (auto) 9.31 K/uL (1.40-6.50); Neutrophils % (auto) 86.2 %; Platelet Count 165 K/uL (130-400); RDW Coefficient of Variation 14.8 % (11.5-14.5); RDW Standard Deviation 47.1 fL (36.4-46.3); Red Blood Count 4.79 M/uL (4.20-5.40); White Blood Count 10.79 K/ul (4.8-10.8)
[2023-08-29] MEDS: ACETAMINOPHEN 500 MG TAB PO STA (18:12)
--- NOTE | 2023-08-29 18:18 | Emergency Department Note ---
Impression & Plan Hypoxia, Flu-like symptoms, Rhinovirus infection ED Provider Note NAME: RORO PEREZ AGE: 83 SEX: F : 1940 ARRIVES VIA: Walk-In INFORMANT: [Patient][] ED PROVIDER(S): [Cricket Sher MD] CHIEF COMPLAINT: DrBhargavi Referred HISTORY OF PRESENT ILLNESS: The patient is an 83-year-old female whose had 2 days of symptoms. She had a fever, chills, sore throat, cough, sweats, headache and nausea. She has had body aches. No real shortness of breath. The patient went to [facility] today, they told her she had pneumonia. Her O2 saturation did drop to the mid 80s with walking although, the patient states that she typically does not walk much. She has no diagnosed lung disease. She has never had pneumonia. PMHx/PSHx/Social Hx: See Below PHYSICAL EXAM: GENERAL: Patient is in no acute distress. HEENT: No acute trauma, normocephalic atraumatic, mucous membranes moist, no nasal congestion. NECK: No stridor, no adenopathy, no meningismus, trachea is midline. LUNGS: Clear to auscultation bilaterally, no wheeze, no rhonchi, breath sounds equal. HEART: Without murmurs gallops or rubs, regular rate and rhythm. ABDOMEN: Soft, nontender, no peritonitis. EXTREMITIES: No cyanosis, full range of motion of all the joints without pain or difficulty. NEUROLOGIC: Oriented x 3, no acute motor or sensory deficits, no focal weakness. SKIN: No jaundice, no diaphoresis. DIFFERENTIAL DIAGNOSIS: Bronchitis or pneumonia, CHF, influenza, COVID-19, viral illness, among others. EMERGENCY DEPARTMENT PROCEDURES: MEDICAL DECISION MAKING: There is no leukocytosis or concerning anemia. There is a normal platelet count. No coagulopathy. No renal failure or significant electrolyte abnormality. No concerning liver enzyme elevation. ECG shows a normal sinus rhythm, no ischemia or dysrhythmia. Cardiac enzyme testing x 1 is not consistent with acute cardiac injury. Urinalysis does not show findings of infection. Respiratory bio fire was positive for rhinovirus. Chest x-ray showed a hiatal hernia, no pneumonia. On exam, patient was resting comfortably but did have episodes of hypoxia. I believe the patient's flulike symptoms and hypoxia are secondary to the rhinovirus infection. She was given albuterol via MDI, she was given a DuoNeb. She was given IV Decadron. She received oral Tylenol. Given the hypoxia, given her age, I do think she requires a hospital stay. Hopefully, she will improve with the nebulizers and Decadron. The patient was told the results of her testing. I did speak with case management, the on-call hospitalist was consulted. Prior/Outside records/notes reviewed: None ECG per my interpretation: Indication was weakness. The ECG shows a normal sinus rhythm with a rate of 90. There is no acute ST elevation, there is a potential old anterior infarct. There are no PVCs. The QTc is 442. Continuous Cardiac Monitoring per my interpretation: An order was placed for continuous cardiac monitoring. The monitor shows a rate of 94 with normal sinus rhythm. Imaging/x-ray results per my interpretation: Chest x-ray shows a hiatal hernia, I see no obvious pneumonia. There is no pneumothorax or CHF. Chronic Medical/Social conditions affecting care: Advanced age. Care/Management discussed with: Case management, the on-call hospitalist. Level of care consideration(s): After review of the information above and other included data: --I believe the patient requires escalation of care to admission DISPOSITION: Admission Past Med/Surg History Medical History Osteoporosis GERD (gastroesophageal reflux disease) Social History Smoking Status: Never smoker Feels Safe at Home: Yes Allergies Allergies Allergy/AdvReac Type Severity Reaction Status Date / Time pollen extracts Allergy Unknown Verified 08/29/23 21:03 Home Meds Home Medications Medication Instructions Recorded Confirmed ascorbic acid (vitamin C) 500 mg 500 mg PO BID 08/29/23 08/29/23 tablet (Vitamin C) aspirin 81 mg tablet,delayed 81 mg PO DAILY 08/29/23 08/29/23 release cholecalciferol (vitamin D3) 25 25 mcg PO DAILY 08/29/23 08/29/23 mcg (1,000 unit) tablet (Vitamin D3) cyanocobalamin (vitamin B-12) 1,000 mcg PO DAILY 08/29/23 08/29/23 1,000 mcg tablet (Vitamin B-12) famotidine 20 mg tablet 20 mg PO HS 08/29/23 08/29/23 fluticasone propionate 50 2 spray intranasal DAILY 08/29/23 08/29/23 mcg/actuation nasal spray,suspension loratadine 10 mg tablet (Claritin) 10 mg PO DAILY PRN allergies 08/29/23 08/29/23 losartan 25 mg tablet 25 mg PO QAM 08/29/23 08/29/23 metoprolol succinate 25 mg 25 mg PO DAILY 08/29/23 08/29/23 tablet,extended release 24 hr pantoprazole 40 mg tablet,delayed 40 mg PO DAILY 08/29/23 08/29/23 release rosuvastatin 40 mg tablet 40 mg PO DAILY 08/29/23 08/29/23 Results & Data (ED) Vital Signs Vital Signs - 24 hr 08/29/23 17:37 08/29/23 17:46 08/29/23 17:51 Temperature 36.8 C Temperature Source Skin Pulse Rate 93 H 93 H Pulse Rate [Apical] Pulse Rate from SpO2 Sensor Respiratory Rate 18 Blood Pressure 138/82 Blood Pressure Mean 100 Pulse Oximetry 94 92 Oxygen Delivery Method Room Air Room Air Sepsis Recent Fever Within 48 Hours Yes Sepsis New/Unexplained Change in Mental Status No Sepsis Action Taken by Nursing No Action Required 08/29/23 19:36 08/29/23 19:57 08/29/23 20:30 Temperature Temperature Source Pulse Rate 83 83 Pulse Rate [Apical] 78 Pulse Rate from SpO2 Sensor 84 85 Respiratory Rate 18 17 17 Blood Pressure 135/72 Blood Pressure Mean 93 Pulse Oximetry 92 95 95 Oxygen Delivery Method Room Air Room Air Sepsis Recent Fever Within 48 Hours Sepsis New/Unexplained Change in Mental Status Sepsis Action Taken by Nursing 08/29/23 21:08 Temperature Temperature Source Pulse Rate Pulse Rate [Apical] Pulse Rate from SpO2 Sensor Respiratory Rate Blood Pressure Blood Pressure Mean Pulse Oximetry 92 Oxygen Delivery Method Room Air Sepsis Recent Fever Within 48 Hours Sepsis New/Unexplained Change in Mental Status Sepsis Action Taken by [facility] Medications Current Medication List: was personally reviewed by me Laboratory Data Attestation: I reviewed the patient's lab results. 08/29/23 17:48 08/29/23 17:48 Lab Results 08/29/23 08/29/23 08/29/23 Range/Units 17:48 18:06 19:55 WBC 10.79 (4.8-10.8) K/ul RBC 4.79 (4.20-5.40) M/uL Hgb 13.4 (12.0-16.0) g/dl Hct 41.3 (37.0-47.0) % MCV 86.2 (80.0-100.0) fL MCH 28.0 (25.0-34.0) pg MCHC 32.4 (32.0-36.0) g/dL RDW Std Deviation 47.1 H (36.4-46.3) fL RDW Coeff of Khadra 14.8 H (11.5-14.5) % Plt Count 165 (130-400) K/uL MPV 9.9 (9.4-12.4) fL Immature Gran % (Auto) 0.3 % Neut % (Auto) 86.2 % Lymph % (Auto) 6.7 % Tift % (Auto) 4.0 % Eos % (Auto) 2.5 % Baso % (Auto) 0.3 % Neut # (Auto) 9.31 H (1.40-6.50) K/uL Lymph # (Auto) 0.72 L (1.20-3.40) K/uL Tift # (Auto) 0.43 (0.11-0.59) K/uL Eos # (Auto) 0.27 (0.00-0.50) K/uL Baso # (Auto) 0.03 (0.00-0.20) K/uL Immature Gran # (Auto) 0.03 (0.01-0.20) K/uL PT 11.1 (9.0-12.0) Seconds INR 1.0 (0.9-1.1) APTT 27 (21-31) Seconds PTT Ratio 1.0 Sodium 137 (136-145) mmol/L Potassium 4.1 (3.5-5.1) mmol/L Chloride 103 (98-107) mmol/L Carbon Dioxide 27 (21-32) mmol/L Anion Gap 7 (3-11) BUN 12 (6-23) mg/dl Creatinine 0.64 (0.6-1.2) mg/dl Est Cr Clr Drug Dosing 61.7 ml/min Est GFR ( Amer) 97.0 ml/min Est GFR (Non-Af Amer) 83.7 ml/min BUN/Creatinine Ratio 18.8 (10-20) Glucose 119 H (70-99(Fasting)) mg/dl Calcium 9.1 (8.6-10.3) mg/dl Magnesium 1.7 (1.7-2.4) mg/dl Total Bilirubin 1.2 H (0.2-1.0) mg/dl AST 17 (13-39) U/L ALT 14 (7-52) U/L Alkaline Phosphatase 100 (34-104) U/L Troponin I High Sens 5.1 (0-14) pg/ml Total Protein 7.1 (6.0-8.3) gm/dl Albumin 4.4 (3.4-5.0) gm/dl Globulin 2.7 (2.5-4.0) gm/dl Albumin/Globulin Ratio 1.6 (0.9-2) Urine Color Yellow Urine Appearance Clear (Clear) Urine pH 5.5 (4.5-7.5) Ur Specific [place] 1.014 (1.000-1.030) Urine Protein Trace H (Negative) Urine Glucose (UA) Negative (Negative) Urine Ketones Negative (Negative) Urine Blood 1+ H (Negative) Urine Nitrite Negative (Negative) Urine Bilirubin Negative (Negative) Urine Urobilinogen Negative (Negative) Ur Leukocyte Esterase Trace H (Negative) Urine WBC (Auto) 0-5 (0-5) /hpf Urine RBC (Auto) 6-10 H (0-2) /hpf U Hyaline Cast (Auto) 0-2 (0-2) /lpf U Epithel Cells (Auto) 0-2 (0-2) /hpf Urine Bacteria (Auto) None Seen (None Seen) Adenovirus (PCR) Not Detected (NotDetected) B. pertussis DNA (PCR) Not Detected (NotDetected) B.parapertussis DNA PCR Not Detected (NotDetected) C. pneumoniae DNA (PCR) Not Detected (NotDetected) Coronavirus OC43 (PCR) Not Detected (NotDetected) Coronavirus HKU1 (PCR) Not Detected (NotDetected) Coronavirus 229E (PCR) Not Detected (NotDetected) SARS-CoV-2 (PCR) Not Detected (NotDetected) Coronavirus NL63 (PCR) Not Detected (NotDetected) Human Metapneumovir PCR Not Detected (NotDetected) Influenza Type A (PCR) Not Detected (NotDetected) Influenza Type B (PCR) Not Detected (NotDetected) M. pneumoniae (PCR) Not Detected (NotDetected) Parainfluenza 1 (PCR) Not Detected (NotDetected) Parainfluenza 2 (PCR) Not Detected (NotDetected) Parainfluenza 3 (PCR) Not Detected (NotDetected) Parainfluenza 4 (PCR) Not Detected (NotDetected) RSV (PCR) Not Detected (NotDetected) Entero/Rhino (PCR) DETECTED A (NotDetected) Administered Medications Discontinued Medications Acetaminophen (Acetaminophen 500 Mg Tab) 1,000 mg PO NOW STA Stop: 08/29/23 18:09 Last Admin: 08/29/23 18:12 Dose: 1,000 mg Documented By: MIKKI Albuterol (Albuterol Hfa 8 Gm Inhaler) 2 puffs INH NOW ONE Stop: 08/29/23 20:11 Last Admin: 08/29/23 20:18 Dose: 2 puffs Documented By: MANDIE Albuterol (Albut/Ipratrop 3mg/0.5mg Neb 3 Ml Vial) 3 ml NEB NOW STA; Protocol Stop: 08/29/23 21:13 Last Admin: 08/29/23 21:27 Dose: 3 ml Documented By: MANDIE Dexamethasone Sodium Phosphate (DexamethasonePf 10 Mg/Ml Vial) 6 mg IV NOW ONE Stop: 08/29/23 21:13 Last Admin: 08/29/23 21:26 Dose: 6 mg Documented By: MANDIE Imaging Data Radiologist's Impression: Chest X-Ray 08/29/23 17:50 SINGLE VIEW CHEST CLINICAL HISTORY: Atypical chest pain. FINDINGS: An AP, portable, upright chest radiograph is compared to study dated 09/29/2018. There is a moderate to large hiatal hernia. The heart is enlarged. The pulmonary vasculature is noncongested. Chronic interstitial thickening is similar to previous. There is bibasilar scarring/atelectasis. No airspace consolidation or large pleural effusion is identified. No pneumothorax is seen. The skeletal structures are osteopenic. The bony thorax is grossly intact. IMPRESSION: 1. Cardiomegaly with no active disease in the chest. 2. Hiatal hernia. ACT 112: Negative or not required by law. Electronically signed by: Cricket Keller M.D. 08/29/2023 6:21 PM Discharge Plan Visit Data Chief Complaint: Referred by Doctor Stated Complaint: HYPOXEMIA ED Provider: Cricket Sher Discharge Problem: Hypoxia, Flu-like symptoms, Rhinovirus infection Patient Disposition: Admitted As Inpatient Condition: Fair Forms Stand Alone Forms: [facility] [place] [employer] Prescriptions Prescriptions: No Action cyanocobalamin (vitamin B-12) [Vitamin B-12] 1,000 mcg Tablet 1,000 mcg PO DAILY aspirin 81 mg tablet,delayed release (DR/EC) 81 mg PO DAILY famotidine 20 mg tablet 20 mg PO HS ascorbic acid (vitamin C) [Vitamin C] 500 mg Tablet 500 mg PO BID pantoprazole 40 mg tablet,delayed release (DR/EC) 40 mg PO DAILY losartan 25 mg tablet 25 mg PO QAM metoprolol succinate 25 mg tablet extended release 24 hr 25 mg PO DAILY fluticasone propionate [Flonase] 50 mcg/actuation [place],Suspension 2 spray INTRANASAL DAILY Rx Instructions: administer into each nostril loratadine [Claritin] 10 mg Tablet 10 mg PO DAILY PRN (Reason: allergies) rosuvastatin 40 mg tablet 40 mg PO DAILY cholecalciferol (vitamin D3) [Vitamin D3] 25 mcg (1,000 unit) Tablet 25 mcg PO DAILY Referrals Referrals: Vesta Reyes MD [Primary Care Provider] -
--- NOTE | 2023-08-29 18:22 | XRay Report ---
SINGLE VIEW CHEST CLINICAL HISTORY: Atypical chest pain. FINDINGS: An AP, portable, upright chest radiograph is compared to study dated 09/29/2018. There is a moderate to large hiatal hernia. The heart is enlarged. The pulmonary vasculature is noncongested. Ch ronic interstitial thickening is similar to previous. There is bibasilar scarring/atelectasis. No air space consolidation or large pleural effusion is identified. No pneumothorax is seen. The skeletal st ructures are osteopenic. The bony thorax is grossly intact. IMPRESSION: 1. Cardiomegaly with no active disease in the chest. 2. Hiatal hernia. ACT 112: Negative or not required by law. Electronically signed by: Cricket Keller M.D. 08/29/2023 6:21 PM
[2023-08-29 18:26] LABS: Albumin Globulin Ratio 1.6 (0.9-2); Albumin Level 4.4 gm/dl (3.4-5.0); BUN Creatinine Ratio 18.8 (10-20); Bilirubin,Total 1.2 mg/dl (0.2-1.0); Calcium 9.1 mg/dl (8.6-10.3); Creatinine Clr Calc Pharmacy 61.7 ml/min; Est GFR (Non-African American) 83.7 ml/min; Globulin 2.7 gm/dl (2.5-4.0); Magnesium 1.7 mg/dl (1.7-2.4); Potassium 4.1 mmol/L (3.5-5.1); Total Protein 7.1 gm/dl (6.0-8.3)
[2023-08-29 18:31] LABS: Troponin I High Sensitivity 5.1 pg/ml (0-14)
[2023-08-29 18:37] LABS: Partial Thromboplastin Time 27 Seconds (21-31); Prothrombin Time 11.1 Seconds (9.0-12.0)
[2023-08-29 19:00] LABS: Adenovirus PCR Not Detected (NotDetected); Bordetella parapertussis PCR Not Detected (NotDetected); Bordetella pertussis PCR Not Detected (NotDetected); Chlamydia pneumoniae PCR Not Detected (NotDetected); Coronavirus 229E PCR Not Detected (NotDetected); Coronavirus CoV-2 (COVID19)PCR Not Detected (NotDetected); Coronavirus HKU1 PCR Not Detected (NotDetected); Coronavirus NL63 PCR Not Detected (NotDetected); Coronavirus OC43PCR Not Detected (NotDetected); Human Metapneumovirus PCR Not Detected (NotDetected); Influenza A PCR Not Detected (NotDetected); Influenza B PCR Not Detected (NotDetected); Mycoplasma pneumoniae PCR Not Detected (NotDetected); Parainfluenza Virus 1 PCR Not Detected (NotDetected); Parainfluenza Virus 2 PCR Not Detected (NotDetected); Parainfluenza Virus 3 PCR Not Detected (NotDetected); Parainfluenza Virus 4 PCR Not Detected (NotDetected); Respiratory Syncytial VirusPCR Not Detected (NotDetected); Rhinovirus/Enterovirus PCR DETECTED (NotDetected)
[2023-08-29] MEDS: ALBUTEROL HFA 8 GM INHALER INH ONE (20:18)
[2023-08-29 20:37] LABS: Appearance Urine Clear (Clear); Bacteria Urine Automated None Seen (None Seen); Bilirubin Urine Negative (Negative); Blood Urine 1+ (Negative); Cast Urine Automated 0-2 /lpf (0-2); Color Urine Yellow; Epithelial Cell Urine Auto 0-2 /hpf (0-2); Glucose Urine UA Negative (Negative); Ketones Urine Negative (Negative); Leukocyte Esterase Urine Trace (Negative); Nitrite Urine Negative (Negative); Protein Urine Trace (Negative); Specific Gravity Urine 1.014 (1.000-1.030); Urobilinogen Urine Negative (Negative); WBC Urine Automated 0-5 /hpf (0-5); pH Urine 5.5 (4.5-7.5)
[2023-08-29] MEDS: dexAMETHasone**PF** 10 MG/ML VIAL IV ONE (21:26)
[2023-08-29] MEDS: ALBUT/IPRATROP 3MG/0.5MG NEB 3 ML VIAL NEB STA (21:27)
--- NOTE | 2023-08-29 22:46 | History & Physical Report ---
Date of Service August 29, 2023 Assessment & Plan (1) Acute bronchitis: Plan: 83-year-old female with past medical history significant for dyslipidemia, prediabetes, CAD status post stent, hypertension, GERD, osteoporosis, comes because of not feeling well for about 2 to 3 days ,having runny nose which is improved currently, having cough with yellowish phlegm and high fevers ,headache, body aches, poor appetite and nausea and went to urgent care and was told that she has pneumonia and sent here.In the ER she was positive for entero/rhinovirus and she was saturating 88% on room air and with 2 L oxygen saturating okay. Resting comfortably. Able to give her history. Is very hard of hearing. Denies blurred vision. Denies any chest pain. No abdominal pain. Normal bowel and bladder movements. Hemodynamics are okay. Acute bronchitis Hypoxia requiring oxygen Entero-/rhinovirus infection received nebs and steroids in the ER Will continue short course of prednisone Nebs [id number] and as needed Droplet precautions Close monitor Prediabetes Follow blood sugars Follow HbA1c levels History of CAD s/p stent On aspirin, metoprolol succinate and statin Hyperlipidemia On statin Hypertension On losartan and metoprolol succinate Will monitor GERD On famotidine and Protonix DVT prophylaxis Lovenox Disposition Med/telemetry Full code History of Present Illness Chief Complaint: Illness Primary Care Provider: Vesta Reyes MD 83-year-old female with past medical history significant for dyslipidemia, prediabetes, CAD status post stent, hypertension, GERD, osteoporosis, comes because of not feeling well for about 2 to 3 days ,having runny nose which is improved currently, having cough with yellowish phlegm and high fevers ,headache, body aches, poor appetite and nausea and went to urgent care and was told that she has pneumonia and sent here.In the ER she was positive for entero/rhinovirus and she was saturating 88% on room air and with 2 L oxygen saturating okay. Resting comfortably. Able to give her history. Is very hard of hearing. Denies blurred vision. Denies any chest pain. No abdominal pain. Normal bowel and bladder movements. Hemodynamics are okay. Past med history. As mentioned above Past surgical history. Bunion correction left side. . Colonoscopy. Cystoscopy. EGD. EGD with biopsy. Parathyroidectomy. Laparoscopic cholecystectomy. Removal of ovary. Bilateral cataract surgery. Repair of left hammertoe. Total hysterectomy. Cardiac stent placement. Social history. . No smoking. Alcohol occasional. No drug use. Family history. Mother had arthritis. Angioplasty. Hypertension. Depression. Thyroid disorder. Father had prostate cancer. Heart disorder. Alzheimer's. Sister had breast cancer. CLL. Allergies Allergy/AdvReac Type Severity Reaction Status Date / Time pollen extracts Allergy Unknown Verified 08/29/23 21:03 Home Medications Medication Instructions Recorded Confirmed Type ascorbic acid (vitamin C) 500 mg 500 mg PO BID 08/29/23 08/29/23 History tablet (Vitamin C) aspirin 81 mg tablet,delayed 81 mg PO DAILY 08/29/23 08/29/23 History release cholecalciferol (vitamin D3) 25 25 mcg PO DAILY 08/29/23 08/29/23 History mcg (1,000 unit) tablet (Vitamin D3) cyanocobalamin (vitamin B-12) 1,000 mcg PO DAILY 08/29/23 08/29/23 History 1,000 mcg tablet (Vitamin B-12) famotidine 20 mg tablet 20 mg PO HS 08/29/23 08/29/23 History fluticasone propionate 50 2 spray intranasal DAILY 08/29/23 08/29/23 History mcg/actuation nasal spray,suspension loratadine 10 mg tablet (Claritin) 10 mg PO DAILY PRN allergies 08/29/23 08/29/23 History losartan 25 mg tablet 25 mg PO QAM 08/29/23 08/29/23 History metoprolol succinate 25 mg 25 mg PO DAILY 08/29/23 08/29/23 History tablet,extended release 24 hr pantoprazole 40 mg tablet,delayed 40 mg PO DAILY 08/29/23 08/29/23 History release rosuvastatin 40 mg tablet 40 mg PO DAILY 08/29/23 08/29/23 History Past Med/Surg History Medical History Osteoporosis GERD (gastroesophageal reflux disease) Social History Smoking Status: Never smoker Hx Alcohol Use: No Hx Substance Use: No Preferred Language: [place] Communication Ability: Effective Early Childhood Education Instructor Required: No Beliefs That Will Affect Care: None Current Living Situation: Spouse Other Information That Helps Us Care for You: No Feels Safe at Home: Yes Safety Concerns: Feels Safe At This Time Assistive Devices: Hearing Aid - Bilateral Review of Systems Review of Systems: All systems reviewed & are unremarkable except as noted in HPI & below Physical Exam Physical Exam: General-Not in distress Head- atraumatic Eyes- PERRL. ENT- oropharynx clear Neck- supple, no JVD. Lungs- clear to auscultation mild bibasilar rhonchi? Heart- regular rhythm; no murmur, no gallop. Abdomen- normal bowel sounds, soft, nontender, no distension. Extremities- no pretibial edema, no erythema seen Neuro- alert, oriented ,PERRL, no facial palsy; no dysarthria; moves extremities. Results & Data Results & Data Vital Signs (Past 12 Hours) Vital Signs Temp Pulse Pulse Resp BP Pulse Ox O2 Del Method 08/29/23 22:12 97 Nasal Cannula 08/29/23 22:10 89 L Room Air 08/29/23 21:50 81 08/29/23 21:08 92 Room Air 08/29/23 20:30 83 17 95 08/29/23 19:57 83 17 135/72 95 Room Air 08/29/23 19:36 78 18 92 Room Air 08/29/23 17:51 92 Room Air 08/29/23 17:46 93 H 08/29/23 17:37 36.8 C 93 H 18 138/82 94 Room Air O2 Flow Rate 08/29/23 22:12 2 08/29/23 22:10 08/29/23 21:50 08/29/23 21:08 08/29/23 20:30 08/29/23 19:57 08/29/23 19:36 08/29/23 17:51 08/29/23 17:46 08/29/23 17:37 Diagnostic Findings Laboratory Results WBC 10.79 K/ul (4.8-10.8) 08/29/23 17:48 RBC 4.79 M/uL (4.20-5.40) 08/29/23 17:48 Hgb 13.4 g/dl (12.0-16.0) 08/29/23 17:48 Hct 41.3 % (37.0-47.0) 08/29/23 17:48 MCV 86.2 fL (80.0-100.0) 08/29/23 17:48 MCH 28.0 pg (25.0-34.0) 08/29/23 17:48 MCHC 32.4 g/dL (32.0-36.0) 08/29/23 17:48 RDW Std Deviation 47.1 fL (36.4-46.3) H 08/29/23 17:48 RDW Coeff of Khadra 14.8 % (11.5-14.5) H 08/29/23 17:48 Plt Count 165 K/uL (130-400) 08/29/23 17:48 MPV 9.9 fL (9.4-12.4) 08/29/23 17:48 Immature Gran % (Auto) 0.3 % 08/29/23 17:48 Neut % (Auto) 86.2 % 08/29/23 17:48 Lymph % (Auto) 6.7 % 08/29/23 17:48 [place] % (Auto) 4.0 % 08/29/23 17:48 Eos % (Auto) 2.5 % 08/29/23 17:48 Baso % (Auto) 0.3 % 08/29/23 17:48 Neut # (Auto) 9.31 K/uL (1.40-6.50) H 08/29/23 17:48 Lymph # (Auto) 0.72 K/uL (1.20-3.40) L 08/29/23 17:48 [place] # (Auto) 0.43 K/uL (0.11-0.59) 08/29/23 17:48 Eos # (Auto) 0.27 K/uL (0.00-0.50) 08/29/23 17:48 Baso # (Auto) 0.03 K/uL (0.00-0.20) 08/29/23 17:48 Immature Gran # (Auto) 0.03 K/uL (0.01-0.20) 08/29/23 17:48 PT 11.1 Seconds (9.0-12.0) 08/29/23 17:48 INR 1.0 (0.9-1.1) 08/29/23 17:48 APTT 27 Seconds (21-31) 08/29/23 17:48 PTT Ratio 1.0 08/29/23 17:48 Sodium 137 mmol/L (136-145) 08/29/23 17:48 Potassium 4.1 mmol/L (3.5-5.1) 08/29/23 17:48 Chloride 103 mmol/L (98-107) 08/29/23 17:48 Carbon Dioxide 27 mmol/L (21-32) 08/29/23 17:48 Anion Gap 7 (3-11) 08/29/23 17:48 BUN 12 mg/dl (6-23) 08/29/23 17:48 Creatinine 0.64 mg/dl (0.6-1.2) 08/29/23 17:48 Est Cr Clr Drug Dosing 61.7 ml/min 08/29/23 17:48 Est GFR ( Amer) 97.0 ml/min 08/29/23 17:48 Est GFR (Non-Af Amer) 83.7 ml/min 08/29/23 17:48 BUN/Creatinine Ratio 18.8 (10-20) 08/29/23 17:48 Glucose 119 mg/dl (70-99(Fasting)) H 08/29/23 17:48 Calcium 9.1 mg/dl (8.6-10.3) 08/29/23 17:48 Magnesium 1.7 mg/dl (1.7-2.4) 08/29/23 17:48 Total Bilirubin 1.2 mg/dl (0.2-1.0) H 08/29/23 17:48 AST 17 U/L (13-39) 08/29/23 17:48 ALT 14 U/L (7-52) 08/29/23 17:48 Alkaline Phosphatase 100 U/L (34-104) 08/29/23 17:48 Troponin I High Sens 5.1 pg/ml (0-14) 08/29/23 17:48 Total Protein 7.1 gm/dl (6.0-8.3) 08/29/23 17:48 Albumin 4.4 gm/dl (3.4-5.0) 08/29/23 17:48 Globulin 2.7 gm/dl (2.5-4.0) 08/29/23 17:48 Albumin/Globulin Ratio 1.6 (0.9-2) 08/29/23 17:48 Urine Color Yellow 08/29/23 19:55 Urine Appearance Clear (Clear) 08/29/23 19:55 Urine pH 5.5 (4.5-7.5) 08/29/23 19:55 Ur Specific [place] 1.014 (1.000-1.030) 08/29/23 19:55 Urine Protein Trace (Negative) H 08/29/23 19:55 Urine Glucose (UA) Negative (Negative) 08/29/23 19:55 Urine Ketones Negative (Negative) 08/29/23 19:55 Urine Blood 1+ (Negative) H 08/29/23 19:55 Urine Nitrite Negative (Negative) 08/29/23 19:55 Urine Bilirubin Negative (Negative) 08/29/23 19:55 Urine Urobilinogen Negative (Negative) 08/29/23 19:55 Ur Leukocyte Esterase Trace (Negative) H 08/29/23 19:55 Urine WBC (Auto) 0-5 /hpf (0-5) 08/29/23 19:55 Urine RBC (Auto) 6-10 /hpf (0-2) H 08/29/23 19:55 U Hyaline Cast (Auto) 0-2 /lpf (0-2) 08/29/23 19:55 U Epithel Cells (Auto) 0-2 /hpf (0-2) 08/29/23 19:55 Urine Bacteria (Auto) None Seen (None Seen) 08/29/23 19:55 Adenovirus (PCR) Not Detected (NotDetected) 08/29/23 18:06 B. pertussis DNA (PCR) Not Detected (NotDetected) 08/29/23 18:06 B.parapertussis DNA PCR Not Detected (NotDetected) 08/29/23 18:06 C. pneumoniae DNA (PCR) Not Detected (NotDetected) 08/29/23 18:06 Coronavirus OC43 (PCR) Not Detected (NotDetected) 08/29/23 18:06 Coronavirus HKU1 (PCR) Not Detected (NotDetected) 08/29/23 18:06 Coronavirus 229E (PCR) Not Detected (NotDetected) 08/29/23 18:06 SARS-CoV-2 (PCR) Not Detected (NotDetected) 08/29/23 18:06 Coronavirus NL63 (PCR) Not Detected (NotDetected) 08/29/23 18:06 Human Metapneumovir PCR Not Detected (NotDetected) 08/29/23 18:06 Influenza Type A (PCR) Not Detected (NotDetected) 08/29/23 18:06 Influenza Type B (PCR) Not Detected (NotDetected) 08/29/23 18:06 M. pneumoniae (PCR) Not Detected (NotDetected) 08/29/23 18:06 Parainfluenza 1 (PCR) Not Detected (NotDetected) 08/29/23 18:06 Parainfluenza 2 (PCR) Not Detected (NotDetected) 08/29/23 18:06 Parainfluenza 3 (PCR) Not Detected (NotDetected) 08/29/23 18:06 Parainfluenza 4 (PCR) Not Detected (NotDetected) 08/29/23 18:06 RSV (PCR) Not Detected (NotDetected) 08/29/23 18:06 Entero/Rhino (PCR) DETECTED (NotDetected) A 08/29/23 18:06 Impressions Chest X-Ray 08/29/23 17:50 SINGLE VIEW CHEST CLINICAL HISTORY: Atypical chest pain. FINDINGS: An AP, portable, upright chest radiograph is compared to study dated 09/29/2018. There is a moderate to large hiatal hernia. The heart is enlarged. The pulmonary vasculature is noncongested. Chronic interstitial thickening is similar to previous. There is bibasilar scarring/atelectasis. No airspace consolidation or large pleural effusion is identified. No pneumothorax is seen. The skeletal structures are osteopenic. The bony thorax is grossly intact. IMPRESSION: 1. Cardiomegaly with no active disease in the chest. 2. Hiatal hernia. ACT 112: Negative or not required by law. Electronically signed by: Cricket Keller M.D. 08/29/2023 6:21 PM ECG Additional Comments: ECG. Normal sinus rhythm at rate of 90. No acute ST changes seen. Code Status & VTE Plan VTE Prophylaxis Plan VTE Prophylaxis will be ordered: Yes
[2023-08-30] MEDS ORDERED: NITROGLYCERIN SL 0.4 MG/TAB TAB SL PRN (00:14)
[2023-08-30] MEDS ORDERED: ALBUT/IPRATROP 3MG/0.5MG NEB 3 ML VIAL NEB PRN (00:14)
[2023-08-30] MEDS ORDERED: ONDANSETRON INJ 2 MG/ML 2 ML VIAL IV PRN (00:14)
[2023-08-30] MEDS ORDERED: LORATADINE 10 MG TAB PO PRN (00:14)
[2023-08-30] MEDS: SODIUM CHLORIDE 0.9% 1,000 ML IV SCH (00:36)
--- OUTSIDE RECORDS SUMMARY | 2023-08-30 05:24 | External Medical Summary | Summary of Care ---
Author Name Unknown Organization [facility] Address [address] [facility] [place] [address] Phone [phone] Care Team Providers Care Voice Network Administrator Name Role Phone Vesta Reyes MD Primary Care Provider + Reason for Visit * Reason Comments eRx-Medication Refill Encounter Details Date Type Department Care Team (Late st Contact Info) Description 08/27/2023 Refill Cardiology, [facility] [address] [place] [address] Pieter Ely PA-C [address] [place] [address] Coronary artery disease involving tazlina coronary artery of tazlina heart without angina pectoris; S/P drug eluting coronary stent placement; History of non-ST elevation myocardial infarction (NSTEMI) Allergies Active Allergy Reactions Criticality Noted Date Comments Pollen 11/05/2021 Hasn't been properly diagnosed, but has allergy symptoms worse in summer documented as of this encounter (statuses as of 08/29/2023) Medications Medication Sig Dispensed Refills Start Date End Date Status VITAMIN D 1000 UNIT PO CAPS 1 capsule daily 0 01/25/2011 Active B-12 1000 MCG PO CAPS one daily 0 Active Ascorbic Acid 500 MG CAPS Take 1 Cap by mouth 2 times a day. 0 09/27/2014 Active Fluticasone Propionate 50 MCG/ACT Nasal Suspension (Flonase)Indicatio ns:Chronic maxillary sinusitis,Cough INSTILL 2 SPRAY(S) IN EACH NOSTRIL ONCE DAILY 48 g 1 08/13/2020 Active Nitroglycerin 0.4 MG Sublingual Tablet Sublingual (Nitrostat) Place 1 Tablet under the tongue every 5 minutes as needed for Pain, Chest. 25 Tablet 5 04/22/2022 Active Additional Information Patient not taking.Reported on 07/06/2023 Loratadine 10 MG Oral Capsule Take 1 Capsule by mouth as needed for Rhinitis. 0 Active Metoprolol Succinate ER 25 MG Oral Tablet Extended Release 24 Hour (toPROL XL) Take 1 tablet by mouth once daily 90 Tablet 2 12/07/2022 Active Pantoprazole Sodium 40 MG Oral Tablet Delayed Release (Protonix)Indicati ons:Gastritis, presence of bleeding unspecified, unspecified chronicity, unspecified gastritis type Take 1 tablet by mouth once daily 90 Tablet 3 05/16/2023 Active EQ Aspirin Adult Low Dose 81 MG Oral Tablet Delayed Release (aspirin enteric coated)Indications :Coronary artery disease involving tazlina coronary artery of tazlina heart without angina pectoris Take 1 tablet by mouth once daily 90 Tablet 2 05/23/2023 Active Losartan Potassium 25 MG Oral Tablet (Cozaar) Take 1 Tablet by mouth in the morning. 31 Tablet 5 07/06/2023 Active Zoster Vac Recomb Adjuvanted 50 MCG/0.5ML Intramuscular Suspension Reconstituted (Shingrix)Indicati ons:Need for shingles vaccine Inject 0.5 mL into a large muscle now and repeat dose in 60 to 180 days 1 Each 1 08/25/2023 Active Rosuvastatin Calcium 40 MG Oral Tablet (Crestor)Indicatio ns:Coronary artery disease involving tazlina coronary artery of tazlina heart without angina pectoris,S/P drug eluting coronary stent placement,History of non-ST elevation myocardial infarction (NSTEMI) Take 1 tablet by mouth once daily 90 Tablet 3 08/29/2023 Active Rosuvastatin Calcium 40 MG Oral Tablet (Crestor)Indicatio ns:Coronary artery disease involving tazlina coronary artery of tazlina heart without angina pectoris,S/P drug eluting coronary stent placement,History of non-ST elevation myocardial infarction (NSTEMI) Take 1 tablet by mouth once daily 90 Tablet 3 09/06/2022 08/29/19 24 Discontinued Famotidine 20 MG Oral Tablet (Pepcid)Indication s:Hiatal hernia TAKE 1 TABLET BY MOUTH AT BEDTIME 30 Tablet 5 03/23/2023 08/29/19 24 Discontinued documented as of this encounter (statuses as of 08/29/2023) Active Problems Problem Noted Date Diagnosed Date Prediabetes 11/10/2020 Overview: Per Prediabetes protocol HTN, goal below 140/90 07/06/2019 Dyslipidemia, goal LDL below 70 07/06/2019 Coronary artery disease invo lving tazlina coronary artery of tazlina heart without angina pectoris 05/29/2017 S/P drug eluting coronary stent placement 2017 History of non-ST elevation myocardial infarctio n (NSTEMI) 05/29/2017 Senile osteoporosis 03/10/2017 Gastroesophageal reflux disease without esophagi tis 03/10/2017 documented as of this encounter (statuses as of 08/29/2023) Resolved Problems Problem Noted Date Diagnosed Date Resolved Date Prediabetes 10/09/2018 01/12/2019 Overview: Per Prediabetes protocol Osteoporosis 01/13/2017 03/10/2017 ADVANCE DIRECTIVE INFORMATION 11/07/2007 03/10/2017 Overview: No, Advance Directive brochure offered , patient declined. Benign neoplasm of colon 11/18/2006 Overview: adenomatous tissue-repeat colonoscopy in 3 years Other osteoporosis without c urrent pathological fracture 01/31/2002 08/24/2018 Overview: ICD-10 update of inactive term Esophageal reflux 10/09/2001 03/10/2017 Postmenopausal atrophic vaginitis 10/09/2001 08/25/2018 documented as of this encounter (statuses as of 08/29/2023) Immunizations Name Administration Dates Next Due COVID-19 mRNA, LNP-s, No Pre serve, 2-Dose Series ([employer]) 04/16/2021,07/14/2020,06/09/2020 Covid-19, Mrna, Lnp-s, Pf, B ivalent, 30 Mcg, IM, 12 yrs and above ([employer]) 02/09/2022 Pneumococcal Conjugate Vacc, 13 Valent (Prevnar) 01/31/2015 Pneumococcal Polysaccharide PPV23 (Pneumovax) 08/18/2007 Season Influenza, Quad, PF, Adjuvanted, 65+ Yrs, IM (FLUAD) 01/10/2020 Seasonal Influenza, PF, 6 M & above, IM , (FluLaval or Fluzone) 02/09/2018 Seasonal Influenza, Quadriva lent Hd (Fluzone Hd) 02/09/2023,02/02/2022,02/11/2021 Seasonal Influenza, Quadriva lent, No Preserve, IM 01/13/2017,01/22/2016,01/31/2015 01/21/2017 Seasonal Influenza, Split, I IV3, With Preserve, Inj 01/31/2014,02/01/2013,01/24/2012,01/01,01/30/2010,01/17/2009,03/05/20 08,02/08/2007,03/16/2006 01/31/2015 Seasonal Influenza, Trivalen t, Adjuvanted, 65+ yrs 01/04/2019 TD, Preservative Free 03/10/2017 TDAP (age 11 and older)(Adacel) 11/10/2005 Varicella Zoster Vaccine (Adult) 07/22/2011 documented as of this encounter Social History Tobacco Use Types Packs/Day Years Used Date Smoking Tobacco: Never Smokeless Tobacco: Never Alcohol Use Standard Drinks/Week Comments Yes 0 (1 standard drink = 0.6 oz pur e alcohol) occasionally PHQ-2 Answer Date Recorded PHQ Adult Total Score 0 02/09/2023 Hunger Vital Sign Answer Date Recorded Worried About Running Out of Food in the Last Ye ar Never true 02/22/2019 Ran Out of Food in the Last Year Never true 02/22/2019 Sex and Gender Information Value Date Recorded Sex Assigned at Female 01/04/2019 10:04 AM EDT Gender Identity Female 01/04/2019 10:04 AM EDT Sexual Orientation Straight 01/04/2019 10 :04 AM EDT Job Start Date Occupation Industry Not on file Not on file Not on file documented as of this encounter Miscellaneous Notes * Telephone Encounter - Pieter Ely PA-C - 08/29/2023 12:07 PM EDTSigned Prescriptions: Disp Refills Rosuvastatin Calcium 40 MG Oral Tablet (Cr*90 Tab*3 Sig: Take 1 tablet by mouth once daily Authorizing Provider: PIETER ELY * Telephone Encounter - Billie Gomez CMA - 08/29/2023 8:57 AM EDTPending Prescriptions: Disp Refills Rosuvastatin Calcium 40 MG Oral Tablet (Cr*90 Tab*3 Sig: Take 1 tablet by mouth once daily * Telephone Encounter - Billie Gomez CMA - 08/29/2023 8:57 AM EDT Did you pend patient's preferred pharmacy and medication before forwarding?yes Pharmacy: [facility] [address] [address] [address] Pending Prescriptions: Disp Refills Rosuvastatin Calcium 40 MG Oral Tablet (C*90 Tab*3 Sig: Take 1 tablet by mouth once daily Last Visit: 07/06/2023 (in office), Visit date not found (telemedicine) Next Visit: 01/13/2024 If no future appointments scheduled, and last appointment is greater than a year ago, please schedule patient for a follow-up appointment Last date the medication was ordered: 09-06-2022 Is this request for a controlled substance?No Urine Drug Screen:No results found for this or any previous visit. Patient Phone Numbers Labs: Lab Results Component Value Date/Time CREAT 0.7 07/06/2023 09:24 AM CREAT 0.9 04/17/2020 02:46 PM POTASSIUM 4.5 07/06/2023 09:24 AM POTASSIUM 4.3 04/17/2020 02:46 PM TSH 1.30 02/09/2023 11:05 AM TSH 1.39 09/12/2019 09:56 AM LDLCALC 32 02/09/2023 11:05 AM LDLCALC 04/17/2020 02:46 PM Uninterpretable, recommend direct LDL cholesterol testing. LDLDIRECT 40 07/03/2021 10:25 AM LDLDIRECT NOT APPLICABLE 09/12/2019 09:56 AM LDLDIRECT 52 10/04/2018 10:52 AM ALT 19 02/09/2023 11:05 AM ALT 21 04/17/2020 02:46 PM HGBA1C 6.1 (H) 02/09/2023 11:05 AM HGBA1C 6.1 (H) 04/17/2020 02:46 PM documented in this encounter Plan of Treatment Upcoming Encounters Date Type Department Care Team (Late st Contact Info) Description 01/13/2024 11:00 AM EDT Office Visit Cardiology, [facility] [address] [place] [address] Pieter Ely PA-C [address] [place] [address] 02/29/2024 9:40 AM EDT Office Visit [place] [facility] [place] [address] [place] [address] Vesta Reyes MD [address] [facility] [place] [address] Health Maintenance Due Date Last Done Comments Zoster Vaccines (2 of 3) 09/16/2011 07/22/2011 COVID-19 Vaccine ( season) 2022 02/09/2022, 04/16/2021, 07/14/2020, Additional history exists Depression Screening 02/10/2024 02/09/2023 HbA1c 02/10/2024 02/09/2023, 07/31, 11/16/2021, Additional history exists GFR 07/05/2024 07/06/2023, 01/30, 08/17/2022, Additional history exists Albumin/Creatinine Ratio 11/16/2024 11/16/2021, 09/30 DTaP,Tdap,and Td Vaccines (3 - Td or Tdap) 03/10/2027 03/10/2017, 11/10/2005 Pneumococcal Vaccine: 65+ Years Completed 01/31/2015, 08/18/2007 Influenza Vaccine (FLU shot) Completed 03/2023, 02/02/2022, 02/11/2021, Additional history exists GARDASIL-HPV IMMUNIZATION SERIES Aged Out No longer eligible based on patient's age to complete this topic Hepatitis B Aged Out No longer eligi ble based on patient's age to complete this topic MENINGOCOCCAL (MENACTRA/MENVEO) Aged Out No longer eligible based on patient's age to complete this topic documented as of this encounter Medical Devices Implanted Type Area Machine Striper Device Identifier Shelf Expiration Date Model / Serial / Lot Lens Intraoc 21.5 - [id number] - [id number] Implanted:Qty: 1 on 06/01/2016 by Scott Mckee MD at OR [facility] Right: Eye [employer] 12/30/2020 [id number] / [id number] / [id number] Lens Intraoc 20.0 - [id number] - [id number] Implanted:Qty: 1 on 06/15/2016 by Scott Mckee MD at OR [facility] Left: Eye [employer] 01/29/2021 [id number] / [id number] / [id number] 2.0 Cannulated Screw Implanted:Qty: 1 on 07/01/2017 by Renea Landrum DPM at OR [facility] Left: Foot [employer] [id number] T / / Trim-It Drill Pin, 2 X100 Mm Implanted:Qty: 1 on 07/01/2017 by Renea Landrum DPM at OR [facility] Left: Foot [employer] 12/30/2018 [id number] / / [id number] documented as of this encounter Visit Diagnoses Diagnosis Coronary artery disease involving tazlina coronary artery of tazlina heart without angina pectoris S/P drug eluting coronary stent placement Postsurgical percutaneous transluminal coronary angioplasty status History of non-ST elevation myocardial infarction (NSTEMI) Old myocardial infarction documented in this encounter Advance Directives Latest Code Status on File Code Status Date Activated Date Inactivated Comments Full Code 06/15/2016 6:35 AM 06/15/2016 1:12 PM This order reflects the patients wishes and were consensually agreed upon. Code Status History Code Status Date Activated Date Inactivated Comments Full Code 06/01/2016 11:50 AM 06/01/2016 5:59 PM This order reflects the patients wishes and were consensually agreed upon. Care Teams Voice Network Administrator Relationship Specialty Start Date End Date Vesta Reyes MD [address] [place] [address] PCP - General 08/16/07 documented as of this encounter
--- OUTSIDE RECORDS SUMMARY | 2023-08-30 05:25 | External Medical Summary | Summary of Care ---
Author Name Unknown Organization [facility] Address [address] [place] [address] Phone [phone] Care Team Providers Care C4 Planner Name Role Phone Vesta Reyes MD Primary Care Provider + Reason for Visit * Reason Comments Post-Op Encounter Details Date Type Department Care Team (Latest Contact Info) Description 08/12/2023 9:00 AM EDT Office Visit Otolaryngology/Hea d & Neck/Facial Plastic Surgery [address] [place], [place] [id number] Jeffry Lauren MD [address] [place] [address] Hyperparathyroidism ([facility])* Allergies Active Allergy Reactions Criticality Noted Date Comments Pollen 11/05/2021 Hasn't been properly diagnosed, but has allergy symptoms worse in summer documented as of this encounter (statuses as of 08/14/2023) Medications Medication Sig Dispensed Refills Start Date [...] Additional Information Patient not taking.Reported on 07/06/2023 Rosuvastatin Calcium 40 MG Oral Tablet (Crestor)Indicatio ns:Coronary artery disease involving [place] coronary artery of [place] heart without angina pectoris,S/P drug eluting coronary stent placement,History of non-ST elevation myocardial infarction (NSTEMI) Take 1 tablet by mouth once daily 90 Tablet 3 09/06/2022 Active Loratadine 10 MG Oral Capsule Take 1 Capsule by mouth as needed for Rhinitis. 0 Active Metoprolol Succinate ER 25 MG Oral Tablet Extended Release 24 Hour (toPROL XL) Take 1 tablet by mouth once daily 90 Tablet 2 12/07/2022 Active Famotidine 20 MG Oral Tablet (Pepcid)Indication s:Hiatal hernia TAKE 1 TABLET BY MOUTH AT BEDTIME 30 Tablet 5 03/23/2023 Active Pantoprazole Sodium 40 MG Oral Tablet Delayed Release (Protonix)Indicati ons:Gastritis, presence of bleeding unspecified, unspecified chronicity, unspecified gastritis type Take 1 tablet by mouth once daily 90 Tablet 3 05/16/2023 Active EQ Aspirin Adult Low Dose 81 MG Oral Tablet Delayed Release (aspirin enteric coated)Indications :Coronary artery disease involving [place] coronary artery of [place] heart without angina pectoris Take 1 tablet by mouth once daily 90 Tablet 2 05/23/2023 Active Losartan Potassium 25 MG Oral Tablet (Cozaar) Take 1 Tablet by mouth in the morning. 31 Tablet 5 07/06/2023 Active Tums E-X 750 750 MG Oral Tablet Chewable (calcium CARBonate) Take 2 Tablets by mouth in the morning and 2 Tablets before bedtime. Do all this for 14 days. 56 Tablet 0 08/01/2023 08/15/2023 Active Additional Information Patient not taking.Reported on 08/12/2023 documented as of this encounter (statuses as of 08/14/2023) Active Problems Problem Noted Date Diagnosed Date Prediabetes 11/10/2020 Overview: Per Prediabetes protocol HTN, goal below 140/90 07/06/2019 Dyslipidemia, goal LDL below 70 07/06/2019 Coronary artery disease invo lving [place] coronary artery of [place] heart without angina pectoris 05/29/2017 S/P drug eluting coronary stent placement 2017 History of non-ST elevation myocardial infarctio n (NSTEMI) 05/29/2017 Senile osteoporosis 03/10/2017 Gastroesophageal reflux disease without esophagi tis 03/10/2017 documented as of this encounter (statuses as of 08/14/2023) Resolved Problems Problem Noted Date Diagnosed Date [...] as of this encounter (statuses as of 08/14/2023) Immunizations Name Administration Dates Next Due COVID-19 mRNA, LNP-s, No Pre serve, 2-Dose Series (Convrrt) 04/16/2021,07/14/2020,06/09/2020 Covid-19, Mrna, Lnp-s, Pf, B ivalent, 30 Mcg, IM, 12 yrs and above (Pfizer) 02/09/2022 Pneumococcal Conjugate Vacc, 13 Valent (Prevnar) 01/31/2015 Pneumococcal Polysaccharide PPV23 (Pneumovax) 08/18/2007 Season Influenza, Quad, PF, Adjuvanted, 65+ Yrs, IM (FLUAD) 01/10/2020 Seasonal Influenza, PF, 6 M & above, IM , (FluLaval or Fluzone) 02/09/2018 Seasonal Influenza, Quadriva lent Hd (Fluzone Hd) 02/09/2023,02/02/2022,02/11/2021 Seasonal Influenza, Quadriva lent, No Preserve, IM 01/13/2017,01/22/2016,01/31/2015 01/21/2017 Seasonal Influenza, Split, I IV3, With Preserve, Inj 01/31/2014,02/01/2013,01/24/2012,01/01,01/30/2010,01/17/2009,03/05/20 08,02/08/2007,03/16/2006,03/10/2005,1 2002,03/06/2002 01/31/2015 Seasonal Influenza, Trivalen t, Adjuvanted, 65+ [...] on file documented as of this encounter Last Filed Vital Signs Vital Sign Reading Time Taken Comments Blood Pressure - - Pulse - - Temperature 36.4 C (97.5 F) 08/12/2023 9:19 AM ED T Respiratory Rate - - Oxygen Saturation - - Inhaled Oxygen Concentration - - Weight - - Height - - Body Mass Index - - documented in this encounter Progress Notes * Jeffry Lauren MD - 08/12/2023 9:34 AM EDT Images from the original note were not included. [facility] [place] - [place] and Ne[place] Post Op Note 08/12/2023 S: No issues since surgery. Post-op PTH dropped to 29. Final Diagnosis A. Parathyroid gland, right inferior, excision: Mild hypercellular parathyroid gland tissue (see NOTE) Specimen weight: 0.07 grams B. Parathyroid gland, left superior, excision: Hypercellular parathyroid gland tissue (see NOTE) Specimen weight: 0.44 grams C. 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 - post-op labs ordered and the PTH came back up to 92. Calcium remains normal at 9.3. I am going torecheck her PTH in 3 months. It would be easy to go back to take a little more parathyroid tissue if necessary but will first let things heal and see where she is at in time. Jeffry Lauren MD, FACS Head & Neck Surgical Oncology, Microvascular Reconstruction, and Robotic Surgery Jeffry Lauren MD, FACS Head & Neck Surgical Oncology, Microvascular Reconstruction, and Robotic Surgery documented in this encounter Miscellaneous Notes * Addendum Note - Jeffry Lauren MD - 08/14/2023 10:43 AM EDTAddended by: JEFFRY LAUREN on: 08/14/2023 10:43 AM Modules accepted: Orders documented in this encounter Plan of Treatment Upcoming Encounters Date Type Department Care Team (Late st Contact Info) Description 08/25/2023 9:20 AM EDT Office Visit General Internal Medicine [place] Joana Ricci [address] [place] [address] Vesta Reyes MD [address] [facility] [place] [address] 01/13/2024 11:00 AM EDT Office Visit Cardiology, [facility] [address] [place] [address] Arnulfo Arias PA-C [address] [place] [address] Scheduled Orders Name Type Priority Associated Diagnoses Orde r Schedule PTH Lab Routine Hyperparathyroidism (HCC) Expected: 11/13/2023, Expires: 08/13/2024 CALCIUM Lab Routine Hyperparathyroidism (HCC) Expected: 11/13/2023, Expires: 08/13/2024 Health Maintenance Due Date Last Done Comments Zoster Vaccines (2 of 3) 09/16/2011 07/22/2011 COVID-19 Vaccine (2022- season) 2022 02/09/2022, 04/16/2021, 07/14/2020, Additional history exists Depression Screening 02/10/2024 02/09/2023 HbA1c 02/10/2024 02/09/2023, 07/31, 11/16/2021, Additional history exists GFR 07/05/2024 07/06/2023, 01/30, 08/17/2022, Additional history exists Albumin/Creatinine Ratio 11/16/2024 11/16/2021, 09/30 DTaP,Tdap,and Td Vaccines (3 - Td or Tdap) 03/10/2027 03/10/2017, 11/10/2005 Pneumococcal Vaccine: 65+ Years Completed 01/31/2015, 08/18/2007 COLONOSCOPY-EVERY 3 YRS AGES 18-100 Discontinued 11/11/2021, 11/11/2021, 03/15/2018, Additional history exists Influenza Vaccine (FLU shot) Completed 02/09/2023, 02/02/2022, 02/11/2021, Additional history exists GARDASIL-HPV IMMUNIZATION SERIES Aged Out No longer eligible based on patient's age to complete this topic Hepatitis B Aged Out No longer eligi ble based on patient's age to complete this topic MENINGOCOCCAL (MENACTRA/MENVEO) Aged Out No longer eligible based on patient's age to complete this topic documented as of this encounter Medical Devices Implanted Type Area Trimming Machine Operator Device Identifier Shelf Expiration Date Model / Serial / Lot Lens Intraoc 21.5 - [id number] - [id number] Implanted:Qty: 1 on 06/01/2016 by Scott Mckee MD at OR [facility] Right: Eye [employer] 12/30/2020 [id number] / [id number] / [id number] Lens Intraoc 20.0 - [id number] - [id number] Implanted:Qty: 1 on 06/15/2016 by Scott Mckee MD at OR [facility] Left: Eye [employer] 01/29/2021 [id number] / [id number] / [id number] 2.0 Cannulated Screw Implanted:Qty: 1 on 07/01/2017 by Renea Landrum DPM at OR [facility] Left: Foot [employer] AR-8720-20P T / / Trim-It Drill Pin, 2 X100 Mm Implanted:Qty: 1 on 07/01/2017 by Renea Landrum DPM at OR [facility] Left: Foot [employer] 12/30/2018 [id number] / / [id number] documented as of this encounter Results * CALCIUM (08/12/2023 9:56 AM EDT) Pathologist [facility] Calcium 9.3 8.4 - 10.2 mg/dL 08/12/2023 10:35 AM EDT [place] [facility] Venous blood specimen / Unknown Venipuncture / Unknown 08/12/2023 9:56 AM EDT 08/12/2023 10:13 AM EDT Jeffyr Lauren MD LAB BLOOD [facility] [place] [place] [address] [place] [address] * (ABNORMAL) PTH (08/12/2023 9:56 AM EDT) Pathologist [facility] PTH 92(H) 15 - 65 pg/mL 08/12/2023 11:45 AM EDT LAB[facility]ATORY [facility] Blood Venous blood specimen / Unknown Venipuncture / Unknown 08/12/2023 9:56 AM EDT 08/12/2023 10:13 AM EDT Jeffry Lauren MD LAB BLOOD [facility] [address] [place] [address] documented in this encounter Visit Diagnoses Diagnosis Hyperparathyroidism (HCC)- Primary Hyperparathyroidism, unspecified documented in this encounter Advance Directives Latest [...] and were consensually agreed upon. Care Teams C4 Planner Relationship Specialty Start Date End Date Vesta Reyes MD [address] [facility] [place] [address] PCP - General 08/16/07 documented as of this encounter
--- OUTSIDE RECORDS SUMMARY | 2023-08-30 05:25 | External Medical Summary | Summary of Care ---
Author Name Unknown Organization [facility] Address [address] [facility] [address] Phone [phone] Care Team Providers Care Ct Tech Name Role Phone Vesta Reyes MD Primary Care Provider + Encounter Details Date Type Department Care Team (Late st Contact Info) Description 08/29/2023 Orders Only PATIENT PORTAL DO NOT DELETE THIS DEPT USED BY [place] [id number] Allergies Active Allergy Reactions Criticality Noted Date [...] Active Fluticasone Propionate 50 MCG/ACT Nasal Suspension (Flonase)Indications :Chronic maxillary sinusitis,Cough INSTILL 2 SPRAY(S) IN EACH NOSTRIL ONCE DAILY 48 g 1 08/13/2020 Active Nitroglycerin 0.4 MG Sublingual Tablet Sublingual (Nitrostat) Place 1 Tablet under the tongue every 5 minutes as needed for Pain, Chest. 25 Tablet 5 04/22/2022 Active Additional Information Patient not taking.Reported on 07/06/2023 Rosuvastatin Calcium 40 MG Oral Tablet (Crestor)Indications :Coronary artery disease involving [place] coronary artery of [place] heart without angina pectoris,S/P drug eluting coronary [...] 12/07/2022 Active Famotidine 20 MG Oral Tablet (Pepcid)Indications: Hiatal hernia TAKE 1 TABLET BY MOUTH AT BEDTIME 30 Tablet 5 03/23/2023 Active Pantoprazole Sodium 40 MG Oral Tablet Delayed Release (Protonix)Indication s:Gastritis, presence of bleeding unspecified, unspecified chronicity, unspecified gastritis type Take 1 tablet by mouth once daily 90 Tablet 3 05/16/2023 Active EQ Aspirin Adult Low Dose 81 MG Oral Tablet Delayed Release (aspirin enteric coated)Indications:C oronary artery disease involving [place] coronary artery of [place] heart without angina pectoris Take 1 tablet by mouth once daily 90 Tablet 2 05/23/2023 Active Losartan Potassium 25 MG Oral Tablet (Cozaar) Take 1 Tablet by mouth in the morning. 31 Tablet 5 07/06/2023 Active Zoster Vac Recomb Adjuvanted 50 MCG/0.5ML Intramuscular Suspension Reconstituted (Shingrix)Indication s:Need for shingles vaccine Inject 0.5 mL into a large muscle now and repeat dose in 60 to 180 days 1 Each 1 08/25/2023 Active documented as of this encounter (statuses as of 08/29/2023) Active Problems Problem Noted Date Diagnosed Date Prediabetes 11/10/2020 Overview: Per Prediabetes protocol HTN, goal below 140/90 07/06/2019 Dyslipidemia, goal LDL below 70 07/06/2019 Coronary artery disease invo lving [place] coronary artery of [place] heart without angina pectoris 05/29/2017 S/P drug [...] mRNA, LNP-s, No Pre serve, 2-Dose Series (Mercateo) 04/16/2021,07/14/2020,06/09/2020 Covid-19, Mrna, Lnp-s, Pf, B ivalent, 30 Mcg, IM, 12 yrs and above (Mercateo) 02/09/2022 Pneumococcal Conjugate Vacc, 13 Valent (Prevnar) [...] on file documented as of this encounter Plan of Treatment Upcoming Encounters Date Type Department Care Team (Late st Contact Info) Description 01/13/2024 11:00 AM EDT Office Visit Cardiology, [facility] [address] [place] [address] Arnulfo Arias PA-C [address] [place] [address] 02/29/2024 9:40 AM EDT Office Visit General Internal Medicine [address] [place] [address] [place] [address] Vesta Reyes MD [address] [place] [address] Health Maintenance Due Date Last Done Comments [...] this encounter Medical Devices Implanted Type Area Laboratory Mechanical Technician Device Identifier Shelf Expiration Date Model / Serial / Lot Lens Intraoc 21.5 - [id number] - [id number] Implanted:Qty: 1 on 06/01/2016 by Scott Mckee MD at OR [facility] Right: Eye [employer] 12/30/2020 [id number] / [id number] / [id number] Lens Intraoc 20.0 - [id number] - [id number] Implanted:Qty: 1 on 06/15/2016 by Scott Mckee MD at OR [facility] Left: Eye [employer] 01/29/2021 [id number] / [id number] / [id number] 2.0 Cannulated Screw Implanted:Qty: 1 on 07/01/2017 by Renea Landrum DPM at OR [facility] Left: Foot [employer] AR-8720-20P T / / Trim-It Drill Pin, 2 X100 Mm Implanted:Qty: 1 on 07/01/2017 by Renea Landrum DPM at OR [facility] Left: Foot [employer] 12/30/2018 [id number] / / [id number] documented as of this encounter Advance Directives Latest Code Status [...] and were consensually agreed upon. Care Teams Ct Tech Relationship Specialty Start Date End Date Vesta Reyes MD [address] [place] [address], [place] [address] PCP - General 08/16/07 documented as of this encounter
--- OUTSIDE RECORDS SUMMARY | 2023-08-30 05:25 | External Medical Summary ---
Author Name Unknown Address Unknown Organization [id number]:LABORATORY [facility] [place] [address] [place] [address] Laboratory Report Ordering Provider Test Date Status JORDAN TERANN 08/12/2023 09:56:14 Final Observation Date Value Abnormality Reference (Units ) Status Calcium 08/12/2023 09:56:14 9.3 8.4-10.2 ( mg/dL) Final Performing Location LABORATORY [facility] - [address] [place] [address]
--- OUTSIDE RECORDS SUMMARY | 2023-08-30 05:25 | External Medical Summary | Summary of Care ---
Author Name Unknown Organization [facility] Address [address] [facility] [place] [address] Phone [phone] Care Team Providers Care Premium Cancellation Clerk Name Role Phone Vesta Reyes MD Primary Care Provider + Reason for Visit * Reason Comments Follow Up Patient is here for a 6 month follow-up Encounter Details Date Type Department Care Team (Late st Contact Info) Description 08/25/2023 9:20 AM EDT Office Visit General Internal Medicine [facility] [address] [facility] [place] [address] Vesta Reyes MD 200 [facility] [place] [address] Coronary artery disease involving [place] coronary artery of [place] heart without angina pectoris*; HTN, goal below 140/90; Prediabetes; Dyslipidemia, goal LDL below 70; Gastroesophageal reflux disease without esophagitis; Senile osteoporosis; S/P drug eluting coronary stent placement; Other microscopic hematuria; Need for shingles vaccine Allergies Active Allergy Reactions Criticality Noted Date Comments Pollen 11/05/2021 Hasn't been properly diagnosed, but has allergy symptoms worse in summer documented as of this encounter (statuses as of 08/25/2023) Medications Medication Sig Dispensed Refills Start Date [...] Oral Tablet (Crestor)Indications :Coronary artery disease involving [place] coronary artery of [place] heart without angina pectoris,S/P drug eluting coronary [...] (aspirin enteric coated)Indications:C oronary artery disease involving [place] coronary artery of [place] heart without angina pectoris Take 1 tablet [...] as of this encounter (statuses as of 08/25/2023) Active Problems Problem Noted Date Diagnosed Date Prediabetes 11/10/2020 Overview: Per Prediabetes protocol HTN, goal below 140/90 07/06/2019 Dyslipidemia, goal LDL below 70 07/06/2019 Coronary artery disease invo lving [place] coronary artery of [place] heart without angina pectoris 05/29/2017 S/P drug eluting coronary stent placement 2017 History of non-ST elevation myocardial infarctio n (NSTEMI) 05/29/2017 Senile osteoporosis 03/10/2017 Gastroesophageal reflux disease without esophagi tis 03/10/2017 documented as of this encounter (statuses as of 08/25/2023) Resolved Problems Problem Noted Date Diagnosed Date [...] as of this encounter (statuses as of 08/25/2023) Immunizations Name Administration Dates Next Due COVID-19 mRNA, LNP-s, No Pre serve, 2-Dose Series ([employer]) 04/16/2021,07/14/2020,06/09/2020 Covid-19, Mrna, Lnp-s, Pf, B ivalent, 30 Mcg, IM, 12 yrs and above ([employer]) 02/09/2022 Pneumococcal Conjugate Vacc, 13 Valent (Prevnar) [...] Sign Reading Time Taken Comments Blood Pressure 138/62 08/25/2023 9:22 AM EDT Pulse 95 08/25/2023 9:22 AM EDT Temperature 35.9 C (96.7 F) 08/25/2023 9:22 AM ED T Respiratory Rate - - Oxygen Saturation 99% 08/25/2023 9:22 AM EDT Inhaled Oxygen Concentration - - Weight 68.6 kg (151 lb 3.2 oz) 08/25/2023 9:22 A M EDT Height 153.7 cm (5' 0.51") 08/25/2023 9:22 AM ED T Body Mass Index 29.03 08/25/2023 9:22 AM EDT documented in this encounter Progress Notes * Vesta Reyes MD - 08/25/2023 9:35 AM EDT Images from the original note were not included. History of Present Illness Donita Brandon is a 83 year old female with a history of CAD, hyperlipidemia, prediabetes, history of hypertension, GERD, senile osteoporosis, status post drug-eluting coronary stent placement, history of non ST elevation GA, follows with cardiology regularly, history of hyper parathyroidism, had3 gland parathyroidectomy for for gland hyperplasia, that presents for Follow Up (Patient is here for a 6 month follow-up) Patient is here for the recheck. Chart reviewed with the patient including current meds, last labs and HM. No acute event since we saw her last time including no recent fall or injuries. As per last ENT note on 08/12/23. A/P: Donita Brandon is a 83 year [...] see where she is at in time. Reviewed last ENT and cardiology notes, last labs. Urine culture was negative but UA showed microscopic blood. Discussed repeat UA, continue hydration. Denies any chestpain/sob/palpitation/swealling in the legs. denies any cough/sob/wheezing/chestpain. No urinary s/s. States during winter, feels depression but fine now and doesn't prefer any med at this time. Discussed its okay to feel the way she feels and start low dose of antidepressant or see counsellor. Pt will let us know if need any help. Discussed shingrix. Script was sent.will get at [facility]. Physical Exam Vitals: 08/25/23 0922 Temp: 35.9 C (96.7 F) Pulse: 95 SpO2: 99% BP: 138/62 BMI: 29.03 BP Readings from Last 3 Encounters: 08/25/23 138/62 08/01/23 138/57 07/06/23 148/82 Wt Readings from Last 3 Encounters: 08/25/23 68.6 kg (151 lb 3.2 oz) 08/01/23 67.9 kg (149 lb 9.6 oz) 07/06/23 67 kg (147 lb 12 oz) BMI Readings from Last 3 Encounters: 08/25/23 29.03 kg/m 08/01/23 28.72 kg/m 07/06/23 28.38 kg/m Ht Readings from Last 3 Encounters: 08/25/23 1.537 m (5' 0.51") 08/01/23 1.537 m (5' 0.51") 06/28/23 1.537 m (5' 0.5") HEENT: PERRLA, EOMI, anicteric sclera, b/l tympanic membrane is pearly white, no erythema, no pharyngeal erythema, no lymphadenopathy, neck supple CVS: RRR, no murmurs, rubs or gallops, s1 s 2normal. RESP: clear to auscultation, no wheezing or crackles ABD: soft, NT/ND, BS normal, no hepatosplenomegaly EXT: no edema, cyanosis, peripheral pulses palpable bilaterally No large joint swelling, no redness, range of motion normal. Skin normal. Gait normal. Mood stable No focal weakness I have reviewed the following results: CMP, Urine Culture, and Urinalysis, POC Assessment and Plan Coronary artery disease involving [place] coronary artery of [place] heart without angina pectoris (Primary) Stable. Continue B vickie, statin,ASa, Losartan. HTN, goal below 140/90 Well controlled on current meds. Prediabetes Diet discussed. Hemoglobin AIC Results: Lab Results Component Value Date/Time HEMOGLOBIN A1C - [facility] 6.1 (H) 02/09/2023 11:05 AM HEMOGLOBIN A1C - [facility] 6.0 (H) 08/17/2022 12:28 PM HEMOGLOBIN A1C - [facility] 6.2 (H) 11/16/2021 10:35 AM HEMOGLOBIN A1C - [facility] 6.1 (H) 04/17/2020 02:46 PM HEMOGLOBIN A1C - [facility] 5.6 01/04/2019 09:42 AM HEMOGLOBIN A1C - [facility] 6.0 (H) 10/04/2018 10:52 AM Dyslipidemia, goal LDL below 70 On crestor 40 mg po daily, continue low fat diet. Gastroesophageal reflux disease without esophagitis Advised pt to avoid caffeine, fried fatty foods, choclates, peppermints, smoking and alcohol. Exercise and weight loss emphasized. Eat dinner 3 hours prior to bed time. Senile osteoporosis S/P drug eluting coronary stent placement Other microscopic hematuria - URINALYSIS WITH MICROSCOPIC EXAM; Future; Expected date: 08/25/2023 Wrap-Up Time: I spent a total of 30-39 minutes (exact time 30 mins) on the date of service in preparation, delivery, and documentation of the care provided to Donita Brandon excluding any time spent in the performance of separately billed services. documented in this encounter Nursing Notes * Nidia Grewal MED ASSIST - 08/25/2023 9:22 AM EDT Chief Complaint Patient presents with Follow Up Patient is here for a 6 month follow-up Patient has been verbally educated on the need or importance of Immunizations: Shingrix and has declined topic(s). documented in this encounter Plan of Treatment Upcoming Encounters Date Type Department Care Team (Late st Contact Info) Description 01/13/2024 11:00 AM EDT Office Visit Cardiology, [facility] [address] [address] Arnulfo Arias PA-C [address] [address] 02/29/2024 9:40 AM EDT Office Visit [facility] [place] [address] [place] [address] Vesta Reyes MD 200 [facility] [place] [address] Scheduled Orders Name Type Priority Associated Diagnoses Orde r Schedule URINALYSIS WITH MICROSCOPIC EXAM Lab STAT Other microscopic hematuria Expected: 08/25/2023, Expires: 08/24/2024 Health Maintenance Due Date Last Done Comments [...] this encounter Medical Devices Implanted Type Area Property Management Intern Device Identifier Shelf Expiration Date Model / Serial / Lot Lens Intraoc 21.5 - [id number] - [id number] Implanted:Qty: 1 on 06/01/2016 by Scott Mckee MD at OR [facility] Right: Eye [employer] 12/30/2020 [id number] / [id number] / [id number] Lens Intraoc 20.0 - [id number] - [id number] Implanted:Qty: 1 on 06/15/2016 by Scott Mckee MD at OR [facility] Left: Eye [employer] 01/29/2021 [id number] / [id number] / [id number] 2.0 Cannulated Screw Implanted:Qty: 1 on 07/01/2017 by Renea Landrum DPM at OR [facility] Left: Foot [employer] AR-8720-20P T / / Trim-It Drill Pin, 2 X100 Mm Implanted:Qty: 1 on 07/01/2017 by Renea Landrum DPM at OR [facility] Left: Foot [employer] 12/30/2018 [id number] / / [id number] documented as of this encounter Visit Diagnoses Diagnosis Coronary artery disease involving [place] coronary artery of [place] heart without angina pectoris- Primary HTN, goal below 140/90 Unspecified essential hypertension Prediabetes Other abnormal glucose Dyslipidemia, goal LDL below 70 Other and unspecified hyperlipidemia Gastroesophageal reflux disease without esophagitis Esophageal reflux Senile osteoporosis S/P drug eluting coronary stent placement Postsurgical percutaneous transluminal coronary angioplasty status Other microscopic hematuria Need for shingles vaccine Need for prophylactic vaccination and inoculation against other viral diseases documented in this encounter Advance Directives Latest [...] and were consensually agreed upon. Care Teams Premium Cancellation Clerk Relationship Specialty Start Date End Date Vesta Reyes MD [address] [place] [address], [place] [address] PCP - General 08/16/07 documented as of this encounter
--- OUTSIDE RECORDS SUMMARY | 2023-08-30 05:25 | External Medical Summary | Summary of Care ---
Author Name Unknown Organization [facility] Address [address] [place] [address] Phone [phone] Care Team Providers Care Job Service Consultant Name Role Phone Vesta Reyes MD Primary Care Provider + Reason for Visit * Reason Comments Post-Op Encounter Details Date Type Department Care Team (Latest Contact Info) Description 08/12/2023 9:00 AM EDT Office Visit Otolaryngology/Hea d & Neck/Facial Plastic Surgery [address] [place], [place] [id number] Jeffry Lauren MD [address] [place] [address] Hyperparathyroidism ([facility])* Allergies Active Allergy Reactions Criticality [...] Oral Tablet (Crestor)Indicatio ns:Coronary artery disease involving [place] coronary artery of [place] heart without angina pectoris,S/P drug eluting coronary [...] (aspirin enteric coated)Indications :Coronary artery disease involving [place] coronary artery of [place] heart without angina pectoris Take 1 tablet [...] 70 07/06/2019 Coronary artery disease invo lving [place] coronary artery of [place] heart without angina pectoris 05/29/2017 S/P drug [...] mRNA, LNP-s, No Pre serve, 2-Dose Series ([employer]) 04/16/2021,07/14/2020,06/09/2020 Covid-19, Mrna, Lnp-s, Pf, B ivalent, [...] from the original note were not included. [facility] Otolaryngology - Head and Neck Surgery Post [...] State Joana Ricci [address] [place] [address] Vesta Reyes MD 200 [facility] [place] [address] 01/13/2024 11:00 AM EDT Office Visit Cardiology, [facility] [address] [place] [address] Arnulfo Arias PA-C [address] [place] [address] Scheduled Orders Name Type Priority Associated Diagnoses [...] this encounter Medical Devices Implanted Type Area Strapping Machine Operator Device Identifier Shelf Expiration Date Model / Serial / Lot Lens Intraoc 21.5 - [id number] - [id number] Implanted:Qty: 1 on 06/01/2016 by Scott Mckee MD at OR [facility] Right: Eye [employer] 12/30/2020 [id number] / [id number] / [id number] Lens Intraoc 20.0 - [id number] - [id number] Implanted:Qty: 1 on 06/15/2016 by Scott Mckee MD at OR [facility] Left: Eye [employer] 01/29/2021 [id number] / [id number] / [id number] 2.0 Cannulated Screw Implanted:Qty: 1 on 07/01/2017 by Renea Landrum DPM at OR [facility] Left: Foot [employer] AR-8720-20P T / / Trim-It Drill Pin, 2 X100 Mm Implanted:Qty: 1 on 07/01/2017 by Renea Landrum DPM at OR [facility] Left: Foot [employer] 12/30/2018 AR-[id number] / / [id number] documented as of this encounter Results * CALCIUM (08/12/2023 9:56 AM EDT) Pathologist [facility] Calcium 9.3 8.4 - 10.2 mg/dL 08/12/2023 10:35 AM EDT LABORATORY [facility] Blood Venous blood specimen / Unknown Venipuncture / Unknown 08/12/2023 9:56 AM EDT 08/12/2023 10:13 AM EDT Jeffry Lauren MD LAB BLOOD [facility] [address] [place] [address] * (ABNORMAL) PTH (08/12/2023 9:56 AM EDT) Pathologist [facility] PTH 92(H) 15 - 65 pg/mL 08/12/2023 11:45 AM EDT LABORATORY [facility] Blood Venous blood specimen / Unknown Venipuncture / Unknown 08/12/2023 9:56 AM EDT 08/12/2023 10:13 AM EDT Jeffry Lauren MD LAB BLOOD [facility] [address] [place] [address] documented in this encounter Visit [...] and were consensually agreed upon. Care Teams Job Service Consultant Relationship Specialty Start Date End Date Vesta Reyes MD [address] [place] [address] PCP - General 08/16/07 documented as of this encounter
--- OUTSIDE RECORDS SUMMARY | 2023-08-30 05:25 | External Medical Summary | Summary of Care ---
Author Name Unknown Organization [facility] Address [address] [place] [address] Phone [phone] Care Team Providers Care Bilingual Teacher Name Role Phone Vesta Reyes MD Primary Care Provider + Reason for Visit * Reason Comments Outpatient Testing Encounter Details Date Type Department Care Team (Latest Contact Info) Description 08/12/2023 10:20 AM EDT Laboratory Outpatient Laboratory, [facility] [address] [place] [address] [facility], Lab B1a [address] [place] [address] Hyperparathyroidism (HCC) Allergies Active Allergy Reactions Criticality Noted Date Comments Pollen 11/05/2021 Hasn't been properly diagnosed, but has allergy symptoms worse in summer documented as of this encounter (statuses as of 08/12/2023) Medications Medication Sig Dispensed Refills Start Date [...] Oral Tablet (Crestor)Indicatio ns:Coronary artery disease involving [place] coronary artery of [place] heart without angina pectoris,S/P drug eluting coronary [...] (aspirin enteric coated)Indications :Coronary artery disease involving [place] coronary artery of [place] heart without angina pectoris Take 1 tablet [...] as of this encounter (statuses as of 08/12/2023) Active Problems Problem Noted Date Diagnosed Date Prediabetes 11/10/2020 Overview: Per Prediabetes protocol HTN, goal below 140/90 07/06/2019 Dyslipidemia, goal LDL below 70 07/06/2019 Coronary artery disease invo lving [place] coronary artery of [place] heart without angina pectoris 05/29/2017 S/P drug eluting coronary stent placement 2017 History of non-ST elevation myocardial infarctio n (NSTEMI) 05/29/2017 Senile osteoporosis 03/10/2017 Gastroesophageal reflux disease without esophagi tis 03/10/2017 documented as of this encounter (statuses as of 08/12/2023) Resolved Problems Problem Noted Date Diagnosed Date [...] as of this encounter (statuses as of 08/12/2023) Immunizations Name Administration Dates Next Due COVID-19 mRNA, LNP-s, No Pre serve, 2-Dose Series ([facility]) 04/16/2021,07/14/2020,06/09/2020 Covid-19, Mrna, Lnp-s, Pf, B ivalent, 30 Mcg, IM, 12 yrs and above ([employer]) 02/09/2022 Pneumococcal Conjugate Vacc, 13 Valent (Prevnar) [...] AM EDT Office [facility] [place] [address] [place] [address] Vesta Reyes MD [address] [place] [address] 01/13/2024 11:00 AM EDT Office Visit Cardiology, [facility] [address] [address] Arnulfo Arias PA-C [address] [place] [address] Health Maintenance Due Date Last Done Comments [...] this encounter Medical Devices Implanted Type Area Church History Teacher Device Identifier Shelf Expiration Date Model / Serial / Lot Lens Intraoc 21.5 - [id number] - [id number] Implanted:Qty: 1 on 06/01/2016 by Scott Mckee MD at OR [facility] Right: Eye [employer] 12/30/2020 [id number] / [id number] / [id number] Lens Intraoc 20.0 - [id number] - [id number] Implanted:Qty: 1 on 06/15/2016 by Scott Mckee MD at OR [facility] Left: Eye [employer] 01/29/2021 [id number] / [id number] / [id number] 2.0 Cannulated Screw Implanted:Qty: 1 on 07/01/2017 by Renea Landrum DPM at OR [facility] Left: Foot [employer] AR-8720-20P T / / Trim-It Drill Pin, 2 X100 Mm Implanted:Qty: 1 on 07/01/2017 by Renea Landrum DPM at OR [facility] Left: Foot [employer] 12/30/2018 AR-[id number] / / [id number] documented as of this encounter Visit Diagnoses Diagnosis Hyperparathyroidism (HCC) Hyperparathyroidism, unspecified documented in this encounter Advance [...] and were consensually agreed upon. Care Teams Bilingual Teacher Relationship Specialty Start Date End Date Vesta Reyes MD [address] [place] [address] PCP - General 08/16/07 documented as of this encounter
--- OUTSIDE RECORDS SUMMARY | 2023-08-30 05:25 | External Medical Summary | Summary of Care ---
Author Name Unknown Organization [facility] Address [address] [place] [address] Phone [phone] Care Team Providers Care Radiology Special Procedure Tech Name Role Phone Vesta Reyes MD Primary Care Provider + Reason for Visit * Auth/Cert Specialty Diagnoses / Procedures Referred By Brett t Referred To Contact Diagnoses Hyperparathyroidism (HCC) Hyperparathyroidism (HCC) [E21.3] Procedures EXPLORE PARATHYROID GLANDS PARATHYROIDECTOMY Shalini Berger MD [address] [place] [address] Or [facility] [address] [place] [address] Referral ID Status Reason Start Date Expiration Date Visits Re quested Visits Authorized [id number] Encounter Details Date Type Department Care Team (Latest Contact Info) Description 08/01/2023 6:09 AM EDT - 08/01/2023 1:05 PM EDT Hospital Encounter [facility] [address] [place] [address] Shalini Berger MD [address] [place] [address] Discharge Disposition: Home - Self Care Allergies Active Allergy Reactions Criticality Noted Date Comments Pollen 11/05/2021 Hasn't been properly diagnosed, but has allergy symptoms worse in summer documented as of this encounter (statuses as of 08/02/2023) Medications Medication Sig Dispensed Refills Start Date [...] Oral Tablet (Crestor)Indicatio ns:Coronary artery disease involving [place] coronary artery of [place] heart without angina pectoris,S/P drug eluting coronary [...] (aspirin enteric coated)Indications :Coronary artery disease involving [place] coronary artery of [place] heart without angina pectoris Take 1 tablet by mouth once daily 90 Tablet 2 05/23/2023 Active oxyCODONE HCl 5 MG Oral Tablet (Oxy IR) Take 1 Tablet by mouth every 6 hours as needed for Pain, Severe for up to 5 days. 11 Tablet 0 08/01/2023 08/06/2023 Active Tums E-X 750 750 MG Oral Tablet Chewable (calcium CARBonate) Take 2 Tablets by mouth in the morning and 2 Tablets before bedtime. Do all this for 14 days. 56 Tablet 0 08/01/2023 08/15/2023 Active documented as of this encounter (statuses as of 08/02/2023) Active Problems Problem Noted Date Diagnosed Date Prediabetes 11/10/2020 Overview: Per Prediabetes protocol HTN, goal below 140/90 07/06/2019 Dyslipidemia, goal LDL below 70 07/06/2019 Coronary artery disease invo lving [place] coronary artery of [place] heart without angina pectoris 05/29/2017 S/P drug eluting coronary stent placement 2017 History of non-ST elevation myocardial infarctio n (NSTEMI) 05/29/2017 Senile osteoporosis 03/10/2017 Gastroesophageal reflux disease without esophagi tis 03/10/2017 documented as of this encounter (statuses as of 08/02/2023) Resolved Problems Problem Noted Date Diagnosed Date [...] as of this encounter (statuses as of 08/02/2023) Immunizations Name Administration Dates Next Due COVID-19 mRNA, LNP-s, No Pre serve, 2-Dose Series ([employer]) 04/16/2021,07/14/2020,06/09/2020 Covid-19, Mrna, Lnp-s, Pf, B [...] Sign Reading Time Taken Comments Blood Pressure 138/57 08/01/2023 11:30 AM EDT Pulse 66 08/01/2023 12:35 PM EDT Temperature 36.6 C (97.9 F) 08/01/2023 10:45 AM E DT Respiratory Rate 19 08/01/2023 12:35 PM EDT Oxygen Saturation 95% 08/01/2023 12:35 PM EDT Inhaled Oxygen Concentration - - Weight 67.9 kg (149 lb 9.6 oz) 08/01/2023 6:29 A M EDT Height 153.7 cm (5' 0.51") 08/01/2023 6:29 AM ED T Body Mass Index 28.72 08/01/2023 6:29 AM EDT documented in this encounter Discharge Instructions * Discharge Instr - AVS* Arnaldo Coyne MD - 08/01/2023 9:52 AM EDT Date of Discharge: 08/01/[address] Retana of the department of ENT at [phone] during business hours for any questionsor test results. For after-hours emergencies call [phone] and have your doctor paged. The information below provides you with the instructions and the list of medications you need to betaking following discharge from the hospital. If you have any questions, please ask before leaving.Please carry this letter with you when you see your doctor in the clinic. If you have questions, you can reach us at the numbers above. Diet: Regular diet, as tolerated If nausea should occur, have clear liquids only until stomach has settled. Activity: Rest today and tomorrow, and then increase activity as tolerated. No strenuous activity for 2 weeks. Driving: One week and no driving within 24 hours of taking narcotic pain medication Date you may return to work or school: Two weeks These follow-up appointments have been scheduled or are in the process of being scheduled. If you have questions about your appointments, please call . When asked to state the name of the physician, please say "Hospital Discharge". Follow up in one week with Dr. Berger. Special Instructions: Post-Op Instructions - Thyroidectomy/Parathyroidectomy Contact our clinic at the number listed above for any of the following concerns: Bleeding in Your Neck- Some bruising is normal but you should not have rapid or excess bruising andthis may be owing to bleeding in your neck. If this is severe or you are panicked owing to trouble breathing, sudden swelling in your throat, or are unable to swallow, call 911 immediately. Low Calcium- If you develop numbness and tingling in your face, lips, fingertips, or toes take two additional doses of calcium carbonate (TUMS). The symptoms should go away in 15 to 30 minutes. If the symptoms persist, at 30 minutes you can repeat this. If the symptoms do still do not go away, callthe ENT clinic. Infection- If you have a temperature above 100.4F by mouth for 2 readings taken 4 hours apart, increased redness and/or warmth at the incision site, puslike drainage, or pain not relieved by pain pills, there may be an infection in your neck. Please call your the ENT clinic. Care for the Surgical Site You may shower, but keep neck area dry. If it gets damp, pat dry with a clean towel. Do NOT apply any ointment or lotion to the incision. Do NOT remove the surgical tape covering your incision. You will be provided with instructions on how to remove the tape gradually after your follow up appointment. documented in this encounter H&P Notes * Shira Herrera MD - 08/01/2023 6:54 AM EDT History & Physical - Otolaryngology [address] [address] Name: Donita Brandon Location: [facility] Date: 08/01/2023 Time: 6:55 AM CC: hyperparathyroidism HPI: The patient presents today for scheduled surgery. She denies any changes to health since last clinic visit. Denies recent illness. Denies use of ASA, NSAIDs, or other anticoagulants. Medical History: 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 Gastroesophageal reflux disease without esophagitis K21.9 Coronary artery disease involving [place] coronary artery of [place] heart without angina pectoris I25.10 S/P drug eluting coronary stent placement Z95.5 History of non-ST elevation myocardial infarction (NSTEMI) I25.2 HTN, goal below 140/90 I10 Dyslipidemia, goal LDL below 70 E78.5 Prediabetes R73.03 Past Medical History: Diagnosis Date CAD (coronary artery disease) Diaphragmatic hernia Esophageal reflux 03/16/07 Kidney stone MO (myocardial infarction) (HCC) 01/2017 Other osteoporosis 01/31/2002 Other osteoporosis without current pathological fracture 01/31/2002 ICD-10 update of inactive term Past Surgical History: Procedure Laterality Date BUNION CORRECTED W/SESAMOIDECTOMY W/ RESECT PROX PHALANX Left 07/01/2017 CORRECTION HALLUX VALGUS, RESECTION PROXIMAL PHALANX BASE performed by Renea Landrum DPM at OR [facility] BUNION CORRECTED WITH PHALANX OSTEOTOMY Left 07/01/2017 CORRECTION HALLUX VALGUS, PROXIMAL PHALANX OSTEOTOMY performed by Renea Landrum DPM at OR [facility] DELIVERY 08/03/1984 x 2 DELIVERY 11/03/1982 emergency c section STILLBORN COLONOSCOPY 01/2004 polpyp, repeat in 3 years COLONOSCOPY W/ LESION REMOVAL, SNARE 11/18/2006 repeat 3yrs adenomatous tissue COLONOSCOPY W/ LESION REMOVAL, SNARE 11/24/2009 path shows adenomatous tissue repeat in 3 years- diverticulosis entire colon COLONOSCOPY, DIAGNOSTIC (RECTUM) 12/11/2012 COLONOSCOPY FLEXIBLE PROXIMAL DIAGNOSTIC performed by Sarmad Vasquez MD at ENDOSCOPY [facility], hyperplastic polyps repeat colonoscopy in 5 years COLONOSCOPY, DIAGNOSTIC (RECTUM) 08/07/2013 COLONOSCOPY FLEXIBLE PROXIMAL DIAGNOSTIC performed by Nargis Collier DO at ENDOSCOPY [facility] COLONOSCOPY, DIAGNOSTIC (RECTUM) 03/15/2018 normal bx, diverticulosis, fair prep, repeat 3 yrs/COLONOSCOPY FLEXIBLE PROXIMAL DIAGNOSTIC performed by Nargis Collier DO at ENDOSCOPY [facility] COLONOSCOPY, DIAGNOSTIC (RECTUM) 11/11/2021 benign adenomatous & serrated adenomatous polyp / COLONOSCOPY FLEXIBLE PROXIMAL DIAGNOSTIC performed by Alejandra Pereira MD at ENDOSCOPY [facility] CYSTOSCOPY 02/02/2005 ansong EGD, FLEXIBLE, DIAGNOSTIC 08/07/2013 ESOPHAGOGASTRODUODENOSCOPY (EGD), FLEXIBLE, TRANSORAL, DIAGNOSTIC performed by Nargis Collier DO at ENDOSCOPY [facility] EGD, FLEXIBLE, DIAGNOSTIC 09/30/2017 mild reactive inflammation, hiatal hernia, esophageal erosions/[facility] EGD, FLEXIBLE, W/BIOPSY 03/16/2007 hiatus hernia gerd EGD, FLEXIBLE, W/BIOPSY 02/07/2009 biopsies from esophagus--no inflammation--very mild irritation of the stomach without evidence of H.Pylori INFORMATION 03/02/2017 cardiac stent x1 LAPAROSCOPY; CHOLECYSTECTOMY 08/29/2009 [facility] - Dr. Huang - cholecystectomy lap - LIPID PANEL WITHOUT DIRECT LDL 09/25/1999 TC-181; HDL-52; LDL-107;trig-109 MAMMOGRAM - 1 BREAST 11/22/2003 [facility] code 2/ yearly mammograms are appropriate MAMMOGRAM - BILATERAL 10/22/2004 [facility] code 2/benign findings. MAMMOGRAM - BILATERAL 10/25/2005 [facility] code 2/benign findigns MAMMOGRAM SCREENING-BILATERAL 10/26/2006 birad 2 REMOVAL OF OVARY/OVIDUCT(S) Ovary/Tube(S) Removal REMOVE CATARACT, INSERT LENS PROSTH Right 06/01/2016 right EXTRACAPSULAR CATARACT REMOVAL WITH INTRAOCULAR LENS performed by Scott Mckee MD at OR [facility] REMOVE CATARACT, INSERT LENS PROSTH Left 06/15/2016 leftEXTRACAPSULAR CATARACT REMOVAL WITH INTRAOCULAR LENS performed by Scott Mckee MD atOR [facility] REPAIR OF HAMMERTOE, ONE TOE Left 07/01/2017 CORRECTION HAMMERTOE performed by Renea Landrum DPM at OR [facility] TOTAL HYSTERECTOMY 11/1984 NOEMI (Total Abdominal Hysterectomy) Review of patient's allergies indicates: Allergen Reactions Environmental [Pollen] Hasn't been properly diagnosed, but has allergy symptoms worse in summer Social History Tobacco Use Smoking status: Never Smokeless tobacco: Never Substance Use Topics Alcohol use: Yes Comment: occasionally Vaping/E-Cigarette Use Vaping/E-Cigarette Use Never User Passive Exposure No Counseling Given? No Vaping/E-Cigarette Substances Nicotine No Other No Flavoring No THC No Cannabidiol (CBD) No Vaping/E-Cigarette Devices Disposable No Pre-filled or Refillable Cartridge No Refillable Tank No Pre-filled Pod No Family History Problem Relation Age of Onset Cancer Sister 53 breast, CLL, age 62 Heart Disorder Mother angioplasty Heart Disorder Father Hypertension Mother Mental Disorder Mother depression/anxiety Neurological Disorder Father Alzheimer's Heart Disorder Brother Cancer Father 73 prostate Arthritis Mother Stroke None Thyroid Disorder Mother Review of Systems: Negative unless otherwise indicated in HPI. Physical Exam: Vital Signs: BP: 151 mmHg/81 mmHg (08/01/23 0637) Pulse: 69 (08/01/23636) Temp: 37.22 C (08/01/23636) Temp Summary: Temp Min: 37.2 C (99 F) Max: 37.2 C (99 F) SpO2: 99 % (08/01/23636) O2 flow rate: Supplemental O2 Delivery: Room Air, None (08/01/23636) No acute distress Regular rate and rhythm without murmur Lungs clear to auscultation bilaterally alert Impression: Donita Brandon is a 83 year old female who presents with the above diagnosis for scheduled surgery. Plan: - NPO - SCDs - Proceed with surgery Shira Herrera MD Otolaryngology - Head and Neck Surgery Resident 08/01/2023 6:55 AM documented in this encounter Nursing Notes * Trini Fox RN - 08/01/2023 10:11 AM EDT Dual Licensed Skin Assessment completed by MAURA rawls and MAURA lees. The patient is/has a N/A Skin Breakdown (includes non blanchable erythema): Yes - Surgical/Procedural changes only. ; * Mark Jaeger RN - 08/01/2023 6:57 AM EDT Dual Licensed Skin Assessment completed by MAURA Pichardo and MAURA Mcfadden. The patient is/has a N/A Skin Breakdown (includes non blanchable erythema): No * Bin Powell RN - 07/29/2023 9:33 AM EDT NO ANESTHESIA EVAL REQUESTED PER CASE DOCUMENTATION. PREOP PATIENT INFORMATION AND EDUCATION: MEDICATION INSTRUCTIONS: The day of surgery/procedure, you may TAKE the following medications with a sip of water up to 2 hours prior to your arrival time: Pantoprazole Metoprolol Rosuvastatin Nitroglycerin as directed if needed AVOID/ DO NOT TAKE any medications the morning of surgery/procedure that are not listed above. AVOID / DO NOT TAKE the following medications the morning of surgery/procedure: Losartan Loratadine STOP taking the following medications the noted number of days prior to surgery/procedure unless otherwise specified by your surgeon: Please follow surgeon's instructions regarding use of Aspirin, Coumadin, Plavix, Eliquis, and any other blood thinner including NSAIDs (non-steroidal anti- inflammatory drugs, eg, Advil, Ibuprofen, Motrin, Aleve, Naproxen); if you have any questions regarding your anticoagulation therapy please contact your surgeon's clinic. Please verify any proposed stoppage of your anticoagulation therapy with the agent's prescribing provider. 10 days prior to surgery/procedure Stop all Herbal supplements, Green Tea, Turmeric, Melatonin, CBD, THC, etc. Stop all Vitamins (including Vitamin E) 24 hours prior to surgery/procedure DO NOT consume any alcohol. DO NOT use medical marijuana. DO NOT smoke or use tobacco products of any kind after midnight prior to surgery. *Using any of these products may increase your risks of procedural complications. IF IT IS LESS THAN RECOMMENDED STOPPAGE TIME PLEASE STOP AT TIME OF NOTIFICATION. FASTING RECOMMENDATIONS: To reduce risk, it is important for all elective surgery patients to follow the specific fasting guidelines listed below. If you have received more stringent guidelines, please follow the MOST RESTRICTIVE guidelines that you have been provided. DO NOT EAT after midnight on the night prior to your surgery date. You are allowed to drink clear liquids up to two hours prior to arrival time to the hospital or surgery center. Examples of clear liquids include water, clear fruit juice without pulp, clear carbonated beverages, clear tea, and black coffee. Any drinks given by your surgical service take as directed. /pediatric patients who currently drink breast milk, formula, and non-human milk must not eat after midnight. These patients are allowed to drink only the liquids listed below up to two hours prior to arrival time to the hospital or surgery center: Ingested Material Minimum Fasting Time Clear liquid After midnight up to 2 hours prior to arrival time Breast milk Up to 4 hours prior to arrival time formula Up to 6 hours prior to arrival time Non-human milk Up to 6 hours prior to arrival time THE DAY BEFORE YOUR SURGERY: -Drink plenty of fluid the day before your surgery. Contact your surgeon's office if you develop any of the following within 2 weeks of surgery: A cold Infection Fever Shingles Chicken pox or exposure to chicken pox Open areas such as scrapes, cuts, yuan or other skin conditions Rashes GENERAL INSTRUCTIONS FOR PREPARING FOR SURGERY: BATHING INSTRUCTIONS: Bathe the evening prior to and the morning of surgery/procedure. Cleanse your body using ONLY anti-bacterial soap (eg, Dial, Safeguard) or any specific soap/cleansers and instructions provided by your surgeon (eg, Chlorhexidine). -You should brush your teeth the morning of surgery. Do NOT apply any lotions, powders, sprays, creams, oils, make-up, or deodorants after bathing. No hairspray, or nail nauruan on fingers or toes. Day of surgery/procedure do not use tampons. If you wear contacts wear your eyeglasses if available otherwise bring your contact supplies with you to remove them prior to your surgery/procedure. If you wear glasses or dentures, please bring cases in which you can store them during your surgery. Please remove all piercings and jewelry and leave them at home. Wear comfortable and loose clothing. -Please leave all valuables at home. -If you use a CPAP and are staying overnight, please bring your mask and tubing with you to the hospital. -If you use an assistive mobility device (walker, cane, etc), please label it with your name and bring to hospital. -An escort forklift driver is required if you are being discharged the same day of the surgery. You should have a responsible adult over the age of 18 [address] you home. This person should be present with youin the hospital at the time of discharge and for the first 24 hours after the surgery to support your needs. If you are taking a taxi home, you must have your responsible alliance party accompany you in the taxi ride home at the time of discharge. OR times subject to change. Please check voicemail messages the day/evening before your surgery forany updates. PRE-OP: You will be taken to the pre-op area where your vital signs (blood pressure, pulse and temperature)will be taken. Any preparations that need to be done will be done there. When it is time for your surgery, you will be taken to the operating room. PARENTS OF PEDIATRIC PATIENTS WILL BE ALLOWED TO STAY WITH THEIR CHILDREN UNTIL THEY ARE ESCORTED TO THE OPERATING ROOM OUTPATIENT SURGERY PATIENTS: After your surgery you will be taken to the Same Day Surgery Unit when you are awake and will go home from there. You will get instructions about your home care before you leave. Arrange to have someone drive you home from the hospital. You may not drive for 24 hours after anesthesia. You must havean adult stay with you at home for 24 hours after your operation. This is very important. If you are not able to comply with these guidelines, your Short Stay surgery cannot be done. ADMISSION PATIENTS: After your stay in the recovery area, you will be taken to your room. Your family may visit you in your room based on current visitation policy. If a next day discharge is expected, it is important to make arrangements for a forklift driver to take you home. Please be aware our visitation policies are subject to change Professionals, attendants, caregivers or family members are allowable visitors for patients with intellectual, developmental or cognitive disabilities, communication barriers or behavioral concerns. Because patients' and families' needs vary, they will be taken into account when applying visitation restrictions. [facility]: Contact # [phone] Directions to Surgical Suite in from the [place] Entrance The Surgical Waiting Room can be found in the Lobby of [facility]. Enter through Main Lobby Entrance and the Waiting Room is directly in front of you. Proceed to check in and give them your name. Directions to Surgical Suite from the East Entrance Enter the East entrance and follow the hallway to the J elevator. Take the J elevator up to Level 1. Continue down the long hallway to the main [facility]. The Surgical Waiting Room will be on your Right. Proceed to check in and give them your Name. Directions to Surgical Suite from the Parking Garage Enter the [facility] lobby and proceed down the rodríguez to the left. At the end of the rodríguez, turn right. Continue down the long hallway to the main [facility]. The Surgical Waiting Room will be on your Right. Proceed to check in and give them your Name. THANK YOU FOR CHOOSING [facility]! Pre-operative chart review completed-instructions provided based on current medication list in [facility] Surgical case is tomorrow, no call made. Chart review completed. Patient does not have a [employer] portal. documented in this encounter OR Notes * OR Surgeon - Arnaldo Coyne MD - 08/01/2023 1:05 PM EDT OPERATIVE RECORD [place], [place] [address] Donita Brandon MR # [id number] OUTPATIENT LOCATION: OR [facility] (Operating Room 1) SERVICE: Otolaryngology - Head & Neck Surgery - Facial Plastic Surgery DATE OF PROCEDURE: 08/01/2023 3:41 PM PRE-OP DIAGNOSIS: hyperparathyroidism POST-OP DIAGNOSIS: Same PROCEDURE: Parathyroid exploration with 3 gland excision SURGEON: Abhinav Berger MD ASSISTANTS: Arnaldo Coyne MD ANESTHESIA: General endotracheal anesthesia OPERATIVE FINDINGS: 1) 3 gland hypertrophy of the right superior, right inferior, and left superior parathyroid glands - excision of these glands with preservation of left inferior parathyroid gland. 2) Confirmation of hypercellularity/adenoma of the three excised glands. 3) Healthy appearing left inferior gland preserved. DRAINS and/or PACKS: None ESTIMATED BLOOD LOSS: 15 ML FLUIDS: 950 ML URINE: 0 ML SPECIMEN(s) OBTAINED and DISPOSITION: ID Source Tests Priority Auth Provider Collected By Collect Time Fzn Formalin Time 1 Parathyroid Gland SURGICAL PATHOLOGY STAT Shalini Berger MD [[id number]] Shalini Berger MD 08/01/23 0805 Yes Description: right inferior parathyroid 2 Parathyroid Gland SURGICAL PATHOLOGY STAT Shalini Berger MD [[id number]] Shalini Berger MD 08/01/23 0836 Yes Description: left superior parathyroid 3 Parathyroid Gland SURGICAL PATHOLOGY Shalini Berger MD [[id number]] Shalini Berger MD08/01/23 0930 No Description: right superior parathyroid A Blood, Venous PTH, INTRAOPERATIVE ([facility] ONLY) STAT Shalini Berger MD [[id number]] Shalini Berger MD 08/01/23 0746 Description: pre-incision rapid PTH B Blood, Venous PTH, INTRAOPERATIVE ([facility] ONLY) STAT Shalini Berger MD [[id number]] Shalini Berger MD 08/01/23 0815 Description: 10 minute post-excision rapid PTH C Blood, Venous PTH, INTRAOPERATIVE ([facility] ONLY) Shalini Bashir MD [[id number]] Shalini Berger MD 08/01/23 0831 Description: 30 minute post-excision rapid PTH D Blood, Venous PTH, INTRAOPERATIVE ([facility] ONLY) Shalini Bashir MD [[id number]] Shalini Berger MD 08/01/23 0846 Description: 10 minute post-excision rapid PTH #2 E Blood, Venous PTH, INTRAOPERATIVE ([facility] ONLY) Shalini Berger MD [[id number]] Shalini Berger MD 08/01/23 0907 Description: 1 post-excision rapid PTH INDICATIONS & HISTORY: This is a 83 year old year old female with history of hyperparathyroidism with multigland hyperplasia. She presents today for scheduled surgery. DESCRIPTION OF OPERATION: A time out was performed and the correct patient identified and the operation and laterality confirmed. Sequential compression device stockings were in place bilaterally at the time of induction. With the patient in the supine position, general anesthesia was induced via an orally placed endotracheal tube with the nerve integrity monitoring array. The neck was extended using a shoulder roll. Positioning of the endotracheal tube was confirmed using the glide scope. The laryngeal nerve monitoring system was tested and confirmed to be in good working condition. The endotracheal tube was secured. Thepatient was then prepped and draped in the usual fashion for anterior neck surgery. A preoperative PTH was collected and resulted as 479. A low Kavitha incision measuring ~4 cm in length was marked. The planned incision was injected with 1% lidocaine with 1-100,000 epinephrine. After several minutesfor local to take effect, the skin was incised using a cold knife. Electrocautery was used to divide the subcutaneous tissues. Superior and inferior subplatysmal flaps were then carefully elevated. The midline raphae was identified and divided using a combination of blunt dissection and harmonic scalpel. The Right sternohyoid muscle was elevated off of the sternothyroid muscle and retracted laterally. The Right sternothyroid muscle was elevated off of the thyroid capsule for increased access tothe viscerovertebral angle. The strap muscles were then retracted laterally. The Right thyroid lobewas identified and inspected. No palpable masses were noted. The right thyroid lobe was then retracted anteriorly and medially and access gained to the viscerovertebral angle. Through division of thefascia lateral to the gland the recurrent laryngeal nerve was identified and carefully dissected inferiorly and noted to stimulate well. A large Right superior parathyroid adenoma was noted adherent to the thyroid gland. The adenoma was carefully dissected from it's blood supply using combination of blunt dissection and division of tissue with electrocautery. This was sent for frozen pathology and confirmed to be hypercellular. Post excision PTH was 203 so the left neck was explored The left sternohyoid muscle was elevated off of the sternothyroid muscle and retracted laterally. The left sternothyroid muscle was elevated off of the thyroid capsule for increased access to the viscerovertebral angle. The strap muscles were then retracted laterally. The left thyroid lobe was identified and inspected. No palpable masses were noted. The left thyroid lobe was then retracted anteriorly and medially and access gained to the viscerovertebral angle. This region was carefully explored until after some time carefully dissecting through fascia and fat in the typical location of an inferior parathyroid gland and a normal appearing gland was identified. A large left superior adenoma was then identified and excised. Post excision PTH remained above 200 so the decision was made to reexplore the right given the normal appearing left inferior gland. A large right superior adenoma waslocalized and excised. Given the normal appearing left inferior gland,the procedure was completed. Minimal bleeding was noted. The left recurrent and right laryngeal nerve were identified, and preserved. A Valsalva maneuver was performed by anesthesia and the neck was monitored for hemostasis and hemostasis was assured. The wound was then irrigated. The incision was then closed in a multilayered f ashion using a running 3-0 Vicryl to reapproximate the midline raphae. The platysma was closed withrunning 3-0 vicryl as well. 3-0 vicryl was used in an interrupted fashion for deep dermal sutures. A 4-0 Monocryl suture was used for subcuticular skin layer. Dermabond skin glue and three overlapping steri-strips were placed. The patient was allowed to emerge from anesthesia and was extubated and transferred to PACU uneventfully. All scrub counts were reported to nursing as correct at conclusionof procedure. DISPOSITION: The patient was transferred to the the Post-Anesthesia Care Unit. APPARENT INTRAOPERATIVE COMPLICATIONS: None PATIENT CONDITION: Stable ATTESTATION: Dr. Berger was present for the entire case. Arnaldo Coyne MD Resident Physician Department of Otolaryngology Head & Neck Surgery Facial Plastic Surgery [facility] [address] [place] [address] cc: Professional Reimbursement and Compliance documented in this encounter Plan of Treatment Upcoming Encounters Date Type Department Care Team (Late st Contact Info) Description 08/12/2023 9:00 AM EDT Office Visit Otolaryngology/Head & Neck/Facial Plastic Surgery [address] [place] [address] Shalini Berger MD [address] [place] [address] 08/25/2023 9:20 AM EDT Office Visit General Internal Medicine [facility] [address] [facility] [place] [address] Vesta Reyes MD [address] [facility] [place] [address] 01/13/2024 11:00 AM EDT Office [facility] [address] [facility] [address] Arnulfo Arias PA-C [address] [facility] [address] Pending Results Name Type Priority Associated Diagnoses Date /Time SURGICAL PATHOLOGY Pathology STAT Hyperparathyroidism (HCC) 08/01/2023 8:05 AM EDT Scheduled Orders Name Type Priority Associated Diagnoses Orde r Schedule SURGICAL PATHOLOGY Pathology Routine Hyperparathyroidism (HCC) Release Upon Ordering for 1 Occurrences starting 08/01/2023, 1 completed Health Maintenance Due Date Last Done Comments [...] this encounter Medical Devices Implanted Type Area Lei Maker Device Identifier Shelf Expiration Date Model / Serial / Lot Lens Intraoc 21.5 - [id number] - [id number] Implanted:Qty: 1 on 06/01/2016 by Scott Mckee MD at OR [facility] Right: Eye [employer] 12/30/2020 [id number] / [id number] / [id number] Lens Intraoc 20.0 - [id number] - [id number] Implanted:Qty: 1 on 06/15/2016 by Scott Mckee MD at OR [facility] Left: Eye [employer] 01/29/2021 [id number] / [id number] / [id number] 2.0 Cannulated Screw Implanted:Qty: 1 on 07/01/2017 by Renea Landrum DPM at OR [facility] Left: Foot [employer] AR-8720-20P T / / Trim-It Drill Pin, 2 X100 Mm Implanted:Qty: 1 on 07/01/2017 by Renea Landrum DPM at OR [facility] Left: Foot [employer] 12/30/2018 [id number] / / [id number] documented as of this encounter Procedures Procedure Name Priority Date/Time Associated Diagnosis Comments PTH STAT 08/01/2023 10:02 AM EDT CALCIUM STAT 08/01/2023 10:02 AM EDT PTH, INTRAOPERATIVE ([facility] ONLY) Routine 08/01/2023 9:07 AM EDT Hyperparathyroidis m (HCC) PTH, INTRAOPERATIVE ([facility] ONLY) STAT 08/01/2023 8:46 AM EDT Hyperparathyroidis m (HCC) PTH, INTRAOPERATIVE ([facility] ONLY) STAT 08/01/2023 8:31 AM EDT Hyperparathyroidis m (HCC) PTH, INTRAOPERATIVE ([facility] ONLY) STAT 08/01/2023 8:15 AM EDT Hyperparathyroidis m (HCC) PTH, INTRAOPERATIVE ([facility] ONLY) STAT 08/01/2023 7:46 AM EDT Hyperparathyroidis m (HCC) documented in this encounter Results * CALCIUM (08/01/2023 10:02 AM EDT) Calcium 8.7 8.4 - 10.2 mg/dL 08/01/2023 10:34 AM EDT LABORATORY [facility] Blood Venous blood specimen / Unknown Venipuncture / Unknown 08/01/2023 10:02 AM EDT 08/01/2023 10:13 AM EDT Arnaldo Coyne MD LAB BLOOD ORDERABLES LABORATORY [facility] [address] [place] [address] * PTH (08/01/2023 10:02 AM EDT) PTH 29 15 - 65 pg/mL 08/01/2023 11:48 AM EDT LABORATORY [facility] Blood Venous blood specimen / Unknown Venipuncture / Unknown 08/01/2023 10:02 AM EDT 08/01/2023 10:13 AM EDT Arnaldo Coyne MD LAB BLOOD ORDERABLES Performing Organization Address City/[facility]/ZIP Co de Phone Number LABORATORY [facility] [address] [place] [address] * (ABNORMAL) PTH, INTRAOPERATIVE ([facility] ONLY) (08/01/2023 9:07 AM EDT) PTH, Intraoperative 257(H) 10 - 65 pg/mL 08/01/2023 9:22 AM EDT LABORATORY [facility] Blood Venous blood specimen / Unknown 08/01/2023 9:07 AM EDT 08/01/2023 9:14 AM EDT Shalini Berger MD LAB BLOOD ORDERA BLES Performing Organization Address [facility] Co de Phone Number LABORATORY [facility] [address] [place] [address] * (ABNORMAL) PTH, INTRAOPERATIVE ([facility] ONLY) (08/01/2023 8:46 AM EDT) PTH, Intraoperative 211(H) 10 - 65 pg/mL 08/01/2023 9:05 AM EDT LABORATORY [facility] Blood Venous blood specimen / Unknown 08/01/2023 8:46 AM EDT 08/01/2023 8:59 AM EDT Shalini Berger MD LAB BLOOD ORDERA BLES Performing Organization Address City/[facility]/ZIP Co de Phone Number LABORATORY [facility] [address] [place] [address] * (ABNORMAL) PTH, INTRAOPERATIVE ([facility] ONLY) (08/01/2023 8:31 AM EDT) PTH, Intraoperative 212(H) 10 - 65 pg/mL 08/01/2023 8:46 AM EDT LABORATORY [facility] Blood Venous blood specimen / Unknown 08/01/2023 8:31 AM EDT 08/01/2023 8:38 AM EDT Shalini Berger MD LAB BLOOD ORDERA BLES Performing Organization Address [facility] Co de Phone Number LABORATORY [facility] [address] [place] [address] * (ABNORMAL) PTH, INTRAOPERATIVE ([facility] ONLY) (08/01/2023 8:15 AM EDT) PTH, Intraoperative 203(H) 10 - 65 pg/mL 08/01/2023 8:29 AM EDT LAB[facility]ATORY [facility] Blood Venous blood specimen / Unknown 08/01/2023 8:15 AM EDT 08/01/2023 8:22 AM EDT Shalini Berger MD LAB BLOOD ORDERA BLES Performing Organization Address [facility] de Phone Number LABORATORY [facility] [address] [place] [address] * (ABNORMAL) PTH, INTRAOPERATIVE ([facility] ONLY) (08/01/2023 7:46 AM EDT) PTH, Intraoperative 479(H) 10 - 65 pg/mL 08/01/2023 8:02 AM EDT LAB[facility]ATORY [facility] Blood Venous blood specimen / Unknown 08/01/2023 7:46 AM EDT 08/01/2023 7:52 AM EDT Shalini Berger MD LAB BLOOD ORDERA BLES Performing Organization Address [facility] de Phone Number LABORATORY [facility] [address] [place] [address] documented in this encounter Visit Diagnoses Diagnosis Hyperparathyroidism (HCC) Hyperparathyroidism, unspecified documented in this encounter Administered Medications Inactive Administered Medications - up to 3 most recent administrations Medication Order MAR Action Action Date Dose Rate Site Acetaminophen (Tylenol) tab 975 mg 975 mg, Oral, ONCE PRN Pain, Mild, Starting on Tue08/01/23 at 0838, Until Tue08/01/23 at 1706, For 1 dose, Administer only postop in PACU, PACU Aprepitant (Emend) cap 40 mg 40 mg, Oral, ONCE, On Tue08/01/23 at 0715, For 1 dose, Pre-Op Given 08/01/2023 7:03 AM EDT 40 mg fentaNYL (PF) inj 50 mcg 50 mcg, IV Push, Q5 MIN PRN Pain, Severe, Starting on Tue08/01/23 at 0838, Until Tue08/01/23 at 1706, For 2 doses, Administer up to a total of 100mcg. Administer only postop in PACU When given IV Push its recommended that the dose be given over 3 to 5 minutes., PACU isolyte-S pH 7.4 infusion Intravenous, at 25 mL/hr, All Patients EXCEPT Dialysis patients Plasma-LYTE 148, isolyte-S, and isolyte-S pH 7.4 are considered equivalent - including for MAR barcode scanning., CONTINUOUS, Starting on Tue08/01/23 at 0715, Until Tue08/01/23 at 1706, Pre-Op Restarted 08/01/2023 7:14 AM EDT New Bag 08/01/2023 7:03 AM EDT 25 mL/hr 25 mL/hr lidocaine 1 % inj 1 mg 1 mg (0.1 mL), Percutaneous, ONCE PRN Other, Difficult IV starts requiring > 20 guage catheter and/ or by patient request, Starting on Tue08/01/23 at 0640, Until Tue08/01/23 at 1706, For 1 dose, Pre-Op oxyCODONE (Oxy IR) tab 5 mg 5 mg, Oral, ONCE PRN Pain, Moderate, Starting on Tue08/01/23 at 0838, Until Tue08/01/23 at 1706, For 1 dose, Administer only postop in PACU, PACU oxygen GAS Inhalation, OXYGEN, First dose on Tue08/01/23 at 0915, Until Discontinued, Device/Managed by: Low Flow Device, Goal SPO2 (%): Other, Lower-limit SPO2 (%): 88, Upper-limit SPO2 (%): 92, Starting Device: Nasal Cannula, Initial Flow Rate (LPM): 6 LPM for NC; 10 LPM for NRB mask, Lowest Support: Nasal Cannula: Flow 0-6 LPM. Titrate up/down by 1 LPM., Higher Support: Non-Rebreather (NRB) Mask: Minimum of 10 LPM. Titrate to maintain bag inflation., Titration Interval: Q2 minutes and as needed., Notify Provider: Other, Notify Provider [other]: If SpO2 less than 88%, notify provider immediately, If patient is on Room Air in the PACU and SpO2 is greater than 88% but less than 92% place patient on Nasal Cannula If patient is on Room Air in the PACU and SpO2 is less than 88% place patient on NRB Mask prochlorperazine (Compazine) inj 2.5 mg 2.5 mg, IV Push, Q6H PRN Nausea, Vomiting, Starting on Tue08/01/23 at 0838, Until Tue08/01/23 at 1210, For 1 dose, PACU Given 08/01/2023 12:10 PM EDT 2.5 mg documented in this encounter Active and Recently Administered Medications Times are shown in EDT. Scheduled Medication Order 07/30/2023 07/31/2023 08/01/2023 Aprepitant (Emend) cap 40 mg (COMPLETED) 40 mg, Oral, ONCE, On Tue08/01/23 at 0715, For 1 dose, Pre-Op 0703 (Given - Provid er: Mark Jaeger RN) lidocaine 4 % topical solution (COMPLETED) Topical, ONCE, On Tue08/01/23 at 1015, For 1 dose, Apply to posterior oropharynx, Intra-Op 0850 (Given - Provid er: Kd Rivera MD) oxygen GAS Inhalation, OXYGEN, First dose on Tue08/01/23 at 0915, Until Discontinued, Device/Managed by: Low Flow Device, Goal SPO2 (%): Other, Lower-limit SPO2 (%): 88, Upper-limit SPO2 (%): 92, Starting Device: Nasal Cannula, Initial Flow Rate (LPM): 6 LPM for NC; 10 LPM for NRB mask, Lowest Support: Nasal Cannula: Flow 0-6 LPM. Titrate up/down by 1 LPM., Higher Support: Non-Rebreather (NRB) Mask: Minimum of 10 LPM. Titrate to maintain bag inflation., Titration Interval: Q2 minutes and as needed., Notify Provider: Other, Notify Provider [other]: If SpO2 less than 88%, notify provider immediately, If patient is on Room Air in the PACU and SpO2 is greater than 88% but less than 92% place patient on Nasal Cannula If patient is on Room Air in the PACU and SpO2 is less than 88% place patient on NRB Mask 0915 (Due)1000 (Oxyg en Off - Provider: Trini Fox, MAURA) Continuous Medication Order 07/30/2023 07/31/2023 08/01/2023 isolyte-S pH 7.4 infusion Intravenous, at 25 mL/hr, All Patients EXCEPT Dialysis patients Plasma-LYTE 148, isolyte-S, and isolyte-S pH 7.4 are considered equivalent - including for MAR barcode scanning., CONTINUOUS, Starting on Tue08/01/23 at 0715, Until Tue08/01/23 at 1706, Pre-Op 0703 (New Bag - Prov ider: Mark Jaeger RN)0713 (Paused - Provider: Kd Rivera MD - Comment: Switch to gravity)0714 (Restarted - Provider: Kd Rivera MD)0758 (Anes Intra-Op Fluid - Provider: Kd Rivera MD)0846 (Anes Intra-Op Fluid - Provider: Kd Rivera MD)0925 (Anes Intra-Op Fluid - Provider: Kd Rivera MD) PRN Medication Order 07/30/2023 07/31/2023 08/01/2023 Acetaminophen (Tylenol) tab 975 mg 975 mg, Oral, ONCE PRN Pain, Mild, Starting on Tue08/01/23 at 0838, Until Tue08/01/23 at 1706, For 1 dose, Administer only postop in PACU, PACU fentaNYL (PF) inj 50 mcg 50 mcg, IV Push, Q5 MIN PRN Pain, Severe, Starting on Tue08/01/23 at 0838, Until Tue08/01/23 at 1706, For 2 doses, Administer up to a total of 100mcg. Administer only postop in PACU When given IV Push its recommended that the dose be given over 3 to 5 minutes., PACU lidocaine 1 % inj 1 mg 1 mg (0.1 mL), Percutaneous, ONCE PRN Other, Difficult IV starts requiring > 20 guage catheter and/ or by patient request, Starting on Tue08/01/23 at 0640, Until Tue08/01/23 at 1706, For 1 dose, Pre-Op lidocaine-epinephrine 1 %-1:[id number] inj (CANCELED) ONCE PRN INTRA PROCEDURE, Starting on Tue08/01/23 at 0756, Until Tue08/01/23 at 0957, Intra-Op 0756 (Given - Provid er: Shalini Berger MD - Comment: Administered to anterior neck.) oxyCODONE (Oxy IR) tab 5 mg 5 mg, Oral, ONCE PRN Pain, Moderate, Starting on Tue08/01/23 at 0838, Until Tue08/01/23 at 1706, For 1 dose, Administer only postop in PACU, PACU prochlorperazine (Compazine) inj 2.5 mg (COMPLETED) 2.5 mg, IV Push, Q6H PRN Nausea, Vomiting, Starting on Tue08/01/23 at 0838, Until Discontinued, For 1 dose, PACU 1210 (Given - Provid er: Trini Fox RN) documented in this encounter Advance Directives Latest [...] and were consensually agreed upon. Care Teams Radiology Special Procedure Tech Relationship Specialty Start Date End Date Vesta Reyes MD [address] [place], [place] [address]isabela [place] [address] PCP - General 08/16/07 documented as of this encounter
--- OUTSIDE RECORDS SUMMARY | 2023-08-30 05:25 | External Medical Summary | Summary of Care ---
Author Name Unknown Organization [facility] Address [address] [place] [address] Phone [phone] Care Team Providers Care Natural Resources Manager Name Role Phone Vesta Reyes MD Primary Care Provider + Reason for Visit * Reason Comments eRx-Medication Refill Encounter Details Date Type Department Care Team (Late st Contact Info) Description 08/27/2023 Refill General Internal Medicine [facility] [address] [facility] [place] [address] Michelle Morales MD [address] [place] [address] Hiatal hernia Allergies Active Allergy Reactions Criticality Noted Date [...] (aspirin enteric coated)Indications :Coronary artery disease involving [place] coronary artery of [place] heart without angina pectoris Take 1 tablet [...] 180 days 1 Each 1 08/25/2023 Active Famotidine 20 MG Oral Tablet (Pepcid)Indication s:Hiatal hernia TAKE 1 TABLET BY MOUTH AT BEDTIME 30 Tablet 5 08/29/2023 Active Rosuvastatin Calcium 40 MG Oral Tablet (Crestor)Indicatio ns:Coronary artery disease involving [place] coronary artery of [place] heart without angina pectoris,S/P drug eluting coronary [...] 70 07/06/2019 Coronary artery disease invo lving [place] coronary artery of [place] heart without angina pectoris 05/29/2017 S/P drug [...] mRNA, LNP-s, No Pre serve, 2-Dose Series ([employer]) 04/16/2021,07/14/2020,06/09/2020 Covid-19, Mrna, Lnp-s, Pf, B ivalent, [...] encounter Miscellaneous Notes * Telephone Encounter - Trudi Ordoñez, [facility] - 08/29/2023 12:03 PM EDT Signed Prescriptions: Disp Refills Famotidine 20 MG Oral Tablet (Pepcid) 30 Tab*5 Sig: TAKE 1 TABLET BY MOUTH AT BEDTIMEAuthorizing Provider: Keenan MORALES User: TRUDI ORDOÑEZ documented in this encounter Plan of Treatment Upcoming Encounters Date Type Department Care Team (Late st Contact Info) Description 01/13/2024 11:00 AM EDT Office Visit Cardiology, [facility] [address] [place] [address] Arnulfo Arias PA-C [address] [place] [address] 02/29/2024 9:40 AM EDT Office Visit [facility] [address] [place] [address] Vesta Reyes MD [address] [facility] [place] [address] Health Maintenance Due Date Last Done Comments [...] this encounter Medical Devices Implanted Type Area Contact Person Device Identifier Shelf Expiration Date Model / Serial / Lot Lens Intraoc 21.5 - [id number] - [id number] Implanted:Qty: 1 on 06/01/2016 by Scott Mckee MD at OR [facility] Right: Eye [employer] 12/30/2020 [id number] / [id number] / [id number] Lens Intraoc 20.0 - [id number] - [id number] Implanted:Qty: 1 on 06/15/2016 by Scott Mckee MD at OR [facility] Left: Eye [employer] 01/29/2021 [id number] / [id number] / [id number] 2.0 Cannulated Screw Implanted:Qty: 1 on 07/01/2017 by Renea Landrum DPM at OR [facility] Left: Foot [employer] AR-8720-20P T / / Trim-It Drill Pin, 2 X100 Mm Implanted:Qty: 1 on 07/01/2017 by Renea Landrum DPM at OR [facility] Left: Foot [employer] 12/30/2018 [id number] / / [id number] documented as of this encounter Visit Diagnoses Diagnosis Hiatal hernia Diaphragmatic hernia without mention of obstruction or gangrene documented in this encounter Advance Directives Latest [...] and were consensually agreed upon. Care Teams Natural Resources Manager Relationship Specialty Start Date End Date Vesta Reyes MD [address] [place] [address] [place] [address] PCP - General 08/16/07 documented as of this encounter
--- OUTSIDE RECORDS SUMMARY | 2023-08-30 05:25 | External Medical Summary ---
Author Name Unknown Address Unknown Organization K01:[facility] [place] [address] [place] [address] Laboratory Report Ordering Provider Test Date Status JEFFRYXIN 08/12/2023 09:56:14 Final Observation Date Value Abnormality Reference (Units ) Status Parathyrin.intact [Mass/volume] in Serum or Plasma 08/12/2023 09:56:14 92 Above high normal 15-65 (pg/mL) Final Performing Location [facility] [facility] [address] [place] [address]
--- OUTSIDE RECORDS SUMMARY | 2023-08-30 05:26 | External Medical Summary | Summary of Care ---
Author Name Unknown Organization [facility] Address [address] [place] [address] Phone [phone] Care Team Providers Care Greeter Guest Services Name Role Phone Vesta Reyes MD Primary Care Provider + Reason for Visit * Reason Comments Outpatient Testing Encounter Details Date Type Department Care Team (Late st Contact Info) Description 07/06/2023 9:30 AM EST Laboratory Laboratory, [facility] [address] [place] [id number] [facility] [address] [place] [address] HTN, goal below 140/90; MAHARAJ (dyspnea on exertion); Dysuria Allergies Active Allergy Reactions Criticality Noted Date Comments Pollen 11/05/2021 Hasn't been properly diagnosed, but has allergy symptoms worse in summer documented as of this encounter (statuses as of 07/06/2023) Medications Medication Sig Dispensed Refills Start Date End Date Status VITAMIN D 1000 UNIT PO CAPS 1 capsule daily 0 01/25/2011 Active B-12 1000 MCG PO CAPS one daily 0 Active Ascorbic Acid 500 MG CAPS Take 1 Cap by mouth 2 times a day. 0 09/27/2014 Active Fluticasone Propionate 50 MCG/ACT Nasal Suspension (Flonase)Indication s:Chronic maxillary sinusitis,Cough INSTILL 2 SPRAY(S) IN EACH NOSTRIL ONCE DAILY 48 g 1 08/13/2020 Active Nitroglycerin 0.4 MG Sublingual Tablet Sublingual (Nitrostat) Place 1 Tablet under the tongue every 5 minutes as needed for Pain, Chest. 25 Tablet 5 04/22/2022 Active Additional Information Patient not taking.Reported on 07/06/2023 Rosuvastatin Calcium 40 MG Oral Tablet (Crestor)Indication s:Coronary artery disease involving [place] coronary artery of [place] heart without angina pectoris,S/P drug eluting coronary [...] 12/07/2022 Active Famotidine 20 MG Oral Tablet (Pepcid)Indications :Hiatal hernia TAKE 1 TABLET BY MOUTH AT BEDTIME 30 Tablet 5 03/23/2023 Active Pantoprazole Sodium 40 MG Oral Tablet Delayed Release (Protonix)Indicatio ns:Gastritis, presence of bleeding unspecified, unspecified chronicity, unspecified gastritis type Take 1 tablet by mouth once daily 90 Tablet 3 05/16/2023 Active EQ Aspirin Adult Low Dose 81 MG Oral Tablet Delayed Release (aspirin enteric coated)Indications: Coronary artery disease involving [place] coronary artery of [place] heart without angina pectoris Take 1 tablet by mouth once daily 90 Tablet 2 05/23/2023 Active Losartan Potassium 25 MG Oral Tablet (Cozaar) Take 1 Tablet by mouth in the morning. 31 Tablet 5 07/06/2023 Active documented as of this encounter (statuses as of 07/06/2023) Active Problems Problem Noted Date Diagnosed Date Prediabetes 11/10/2020 Overview: Per Prediabetes protocol HTN, goal below 140/90 07/06/2019 Dyslipidemia, goal LDL below 70 07/06/2019 Coronary artery disease invo lving [place] coronary artery of [place] heart without angina pectoris 05/29/2017 S/P drug eluting coronary stent placement 2017 History of non-ST elevation myocardial infarctio n (NSTEMI) 05/29/2017 Senile osteoporosis 03/10/2017 Gastroesophageal reflux disease without esophagi tis 03/10/2017 documented as of this encounter (statuses as of 07/06/2023) Resolved Problems Problem Noted Date Diagnosed Date [...] as of this encounter (statuses as of 07/06/2023) Immunizations Name Administration Dates Next Due COVID-19 mRNA, LNP-s, No Pre serve, 2-Dose Series (OraMetrix) 04/16/2021,07/14/2020,06/09/2020 Covid-19, Mrna, Lnp-s, Pf, B ivalent, [...] Upcoming Encounters Date Type Department Care Team (Latest Contact Info) Description 07/11/2023 9:15 AM EDT Imaging Cardiac Studies, [address] [address] 07/14/2023 8:20 AM EDT Telemedicine Endocrinology, [place] [address] [place], [place] [id number] Jose Mendoza MD [address] [place] [address] 08/01/2023 11:50 AM EDT Hospital Encounter [facility] [facility] [facility] [address] [place], [place] [phone] Shalini Berger MD [address] [place], [place] [id number] 08/01/2023 11:50 AM EDT - 08/01/2023 2:17 PM EDT Surgery [place] [facility] [facility] [facility] [address] [place] [address] Shalini Berger MD [address] [place] [address] PARATHYROIDECTOMY 08/12/2023 9:00 AM EDT Office Visit Otolaryngology/Head & Neck/Facial Plastic Surgery [address] [facility] [place] [address] Shalini Berger MD [address] [place] [address] 08/25/2023 9:20 AM EDT Office Visit General Internal Medicine [facility] [address] [facility] [place] [address] Vesta Reyes MD [address] [place] [address] 01/13/2024 11:00 AM EDT Office Visit Cardiology, [facility] [address] [place] [address] Arnulfo Arias PA-C [address] [place] [address] Pending Results Name Type Priority Associated Diagnoses Date /Time BASIC METABOLIC PANEL Lab Routine HTN, goal below 140/90 07/06/2023 9:24 AM EST CBC WITH WBC DIFFERENTIAL AND ANEMIA REFLEX WORKUP Lab Routine HTN, goal below 140/90 MAHARAJ (dyspnea on exertion) 07/06/2023 9:24 AM EST ANEMIA CBC Lab Routine HTN, goal below 140/90 MAHARAJ (dyspnea on exertion) 07/06/2023 9:24 AM EST DIFFERENTIAL, AUTOMATED Lab Routine HTN, goal below 140/90 MAHARAJ (dyspnea on exertion) 07/06/2023 9:24 AM EST ANEMIA REFLEX CHEMISTRY HOLD Lab Routine HTN, goal below 140/90 MAHARAJ (dyspnea on exertion) 07/06/2023 9:24 AM EST URINALYSIS, REFLEX TO MICROSCOPIC Lab Routine Dysuria 07/06/2023 10:00 AM EST CULTURE, URINE, QUANTITATIVE Lab Routine Dysuria 07/06/2023 10:00 AM EST Scheduled Procedures Name Priority Associated Diagnoses Date/Ti me PARATHYROIDECTOMY Hyperparathyroidism (HCC) 08/01/2023 11:50 AM EDT Health Maintenance Due Date Last Done Comments Zoster Vaccines (2 of 3) 09/16/2011 07/22/2011 COVID-19 Vaccine ( season) 2022 02/09/2022, 04/16/2021, 07/14/2020, Additional history exists Depression Screening 02/10/2024 02/09/2023 GFR 02/10/2024 02/09/2023, 07/31, 07/03/2021, Additional history exists HbA1c 02/10/2024 02/09/2023, 07/31, 11/16/2021, Additional history exists Albumin/Creatinine Ratio 11/16/2024 11/16/2021, [...] this encounter Medical Devices Implanted Type Area Quality System Manager Device Identifier Shelf Expiration Date Model / Serial / Lot Lens Intraoc 21.5 - [id number] - [id number] Implanted:Qty: 1 on 06/01/2016 by Scott Mckee MD at OR [facility] Right: Eye [employer] 12/30/2020 [id number] / [id number] / [id number] Lens Intraoc 20.0 - [id number] - [id number] Implanted:Qty: 1 on 06/15/2016 by Scott Mckee MD at OR [facility] Left: Eye [employer]OM[employer] 01/29/2021 [id number] / [id number] / [id number] 2.0 Cannulated Screw Implanted:Qty: 1 on 07/01/2017 by Renea Landrum DPM at OR [facility] Left: Foot [employer] [id number] T / / Trim-It Drill Pin, 2 X100 Mm Implanted:Qty: 1 on 07/01/2017 by Renea Landrum DPM at OR [facility] Left: Foot [employer] 12/30/2018 [id number] / / [id number] documented as of this encounter Visit Diagnoses Diagnosis HTN, goal below 140/90 Unspecified essential hypertension MAHARAJ (dyspnea on exertion) Other dyspnea and respiratory abnormality Dysuria Hyperparathyroidism (HCC) Hyperparathyroidism, unspecified documented in this [...] and were consensually agreed upon. Care Teams Greeter Guest Services Relationship Specialty Start Date End Date Vesta Reyes MD [address] [place] [address], [place] [address] PCP - General 08/16/07 documented as of this encounter
--- OUTSIDE RECORDS SUMMARY | 2023-08-30 05:26 | External Medical Summary | Summary of Care ---
Author Name Unknown Organization [facility] Address [address] [facility] [place] [address] Phone [phone] Care Team Providers Care Sessions Clerk Name Role Phone Vesta Reyes MD Primary Care Provider + Reason for Visit * Reason Onset Date Comments Test Results 07/18/2023 Encounter Details Date Type Department Care Team (Late st Contact Info) Description 07/18/2023 Telephone Cardiology, [facility] [address] [place] [address] Arnulfo Arias PA-C [address] [facility] [place] [phone] Test Results Allergies Active Allergy Reactions Criticality Noted Date Comments Pollen 11/05/2021 Hasn't been properly diagnosed, but has allergy symptoms worse in summer documented as of this encounter (statuses as of 07/18/2023) Medications Medication Sig Dispensed Refills Start Date [...] Oral Tablet (Crestor)Indication s:Coronary artery disease involving [place] coronary artery of [place] heart without angina pectoris,S/P drug eluting coronary [...] (aspirin enteric coated)Indications: Coronary artery disease involving [place] coronary artery of [place] heart without angina pectoris Take 1 tablet by mouth once daily 90 Tablet 2 05/23/2023 Active Losartan Potassium 25 MG Oral Tablet (Cozaar) Take 1 Tablet by mouth in the morning. 31 Tablet 5 07/06/2023 Active documented as of this encounter (statuses as of 07/18/2023) Active Problems Problem Noted Date Diagnosed Date Prediabetes 11/10/2020 Overview: Per Prediabetes protocol HTN, goal below 140/90 07/06/2019 Dyslipidemia, goal LDL below 70 07/06/2019 Coronary artery disease invo lving [place] coronary artery of [place] heart without angina pectoris 05/29/2017 S/P drug eluting coronary stent placement 2017 History of non-ST elevation myocardial infarctio n (NSTEMI) 05/29/2017 Senile osteoporosis 03/10/2017 Gastroesophageal reflux disease without esophagi tis 03/10/2017 documented as of this encounter (statuses as of 07/18/2023) Resolved Problems Problem Noted Date Diagnosed Date [...] as of this encounter (statuses as of 07/18/2023) Immunizations Name Administration Dates Next Due COVID-19 mRNA, LNP-s, No Pre serve, 2-Dose Series (JellyCloud) 04/16/2021,07/14/2020,06/09/2020 Covid-19, Mrna, Lnp-s, Pf, B ivalent, 30 Mcg, IM, 12 yrs and above (JellyCloud) 02/09/2022 Pneumococcal Conjugate Vacc, 13 Valent (Prevnar) [...] encounter Miscellaneous Notes * Telephone Encounter - Harlan Heredia LPN - 07/18/2023 4:32 PM EDT Called patient and left Arnulfo's message to make aware. ----- Message from Arnulfo Arias PA-C sent at 07/11/2023 2:37 PM EDT ----- Nonischemic dobutamine stress echocardiography. OK for procedure. See recommendations in Office Visit note dated 07/06/2023. documented in this encounter Plan of Treatment Upcoming Encounters Date Type Department Care Team (Latest Contact Info) Description 08/01/2023 11:50 AM EDT Hospital Encounter [facility], OPERATING ROOM [facility] [address] [place] [address] Shalini Berger MD [address] [place], [place] [phone] 08/01/2023 11:50 AM EDT - 08/01/2023 2:17 PM EDT Surgery OR [facility] [place], OPERATING ROOM [facility] [place], [facility] [address] [place] [address] Shalini Berger MD [address] [place] [address] PARATHYROIDECTOMY 08/12/2023 9:00 AM EDT Office Visit Otolaryngology/Head & Neck/Facial Plastic Surgery [address] [place] [address] Shalini Berger MD [address] [place] [address] 08/25/2023 9:20 AM EDT Office Visit General Internal Medicine [facility] [address] [facility] [place] [address] Vesta Reyes MD [address] [facility] [place] [address] 01/13/2024 11:00 AM EDT Office Visit Cardiology, [facility] [address] [place] [address] Arnulfo Arias PA-C [address] [facility] [place] [address] Scheduled Procedures Name Priority Associated Diagnoses Date/Ti [...] this encounter Medical Devices Implanted Type Area Truck Sales Manager Device Identifier Shelf Expiration Date Model / Serial / Lot Lens Intraoc 21.5 - [id number] - [id number] Implanted:Qty: 1 on 06/01/2016 by Scott Mckee MD at OR [facility] Right: Eye [employer] 12/30/2020 [id number] / [id number] / [id number] Lens Intraoc 20.0 - [id number] - [id number] Implanted:Qty: 1 on 06/15/2016 by Scott Mckee MD at OR [facility] Left: Eye [employer] 01/29/2021 [id number] / [id number] / [id number] 2.0 Cannulated Screw Implanted:Qty: 1 on 07/01/2017 by Renea Landrum DPM at OR [facility] Left: Foot [employer] [id number] T / / Trim-It Drill Pin, 2 X100 Mm Implanted:Qty: 1 on 07/01/2017 by Renea Landrum DPM at OR [facility] Left: Foot [employer] 12/30/2018 [id number] / / [id number] documented as of this encounter Advance Directives [...] and were consensually agreed upon. Care Teams Sessions Clerk Relationship Specialty Start Date End Date Vesta Reyes MD [address] [facility] [place] [address] PCP - General 08/16/07 documented as of this encounter
--- OUTSIDE RECORDS SUMMARY | 2023-08-30 05:26 | External Medical Summary ---
Author Name Unknown Address Unknown Organization [id number]:[facility] - [address] [place] [address] Laboratory Report Ordering Provider Test Date Status JHOANA STAPLETON 07/06/2023 09:24:57 Final Observation Date Value Abnormality Reference (Units ) Status BUN 07/06/2023 09:24:57 14 6-20 (mg/dL) Final Creatinine 07/06/2023 09:24:57 0.7 0.5-1.0 (mg/dL) Final Glomerular filtration rate/1.73 sq M.predicted [Volume Rate/Area] in Serum, Plasma or Blood by Creatinine-based formula (CKD-EPI) 07/06/2023 09:24:57 87 >=60 (mL/min) Final eGFR is calculated based on the CKD-EPI 2020 equation SODIUM 07/06/2023 09:24:57 139 135-146 (m mol/L) Final Potassium 07/06/2023 09:24:57 4.5 3.5-5.1 (m mol/L) Final Cl 07/06/2023 09:24:57 104 98-107 (mm ol/L) Final CO2 07/06/2023 09:24:57 27 22-32 (mmo l/L) Final Anion gap 07/06/2023 09:24:57 8 7-15 (mmol /L) Final Glucose 07/06/2023 09:24:57 105 70-120 (mg /dL) Final Calcium 07/06/2023 09:24:57 10.4 Above high normal 8. 4-10.2 (mg/dL) Final Performing Location [facility] [place] [id number]
--- OUTSIDE RECORDS SUMMARY | 2023-08-30 05:26 | External Medical Summary ---
Author Name Unknown Address Unknown Organization [id number]:[facility] [address] [facility] [address] Laboratory Report Ordering Provider Test Date Status XIN TERAN 08/01/2023 08:15:00 Final Observation Date Value Abnormality Reference (Units ) Status Parathyrin.intact [Mass/volume] in Serum or Plasma 08/01/2023 08:15:00 203 Above high normal 10-65 (pg/mL) Final Performing Location [facility] [address] [facility] [address]
--- OUTSIDE RECORDS SUMMARY | 2023-08-30 05:26 | External Medical Summary | Summary of Care ---
Author Name Unknown Organization [facility] Address [address] [facility] [place] [address] Phone [phone] Care Team Providers Care Parts Assembler Name Role Phone Vesta Reyes MD Primary Care Provider + Reason for Referral * Precert (Within 10 days (routine)) - Authorized Specialty Diagnoses / Procedures Referred By Contac t Referred To Contact Cardiac Studies Diagnoses HTN, goal below 140/90 Procedures ECHO, STRESS (DOBUTAMINE) W/ PHYSICIAN Arnulfo Arias PA-C [address] [place] [address] Referral ID Status Reason Start Date Expiration Date V isits Requested Visits Authorized [id number] Authorized Precert 07/07/2023 999 999 Reason for Visit * Reason Comments Pre-op Clearance Parathyroidectomy on 08/01/23. 8 1/2 month follow up. Dealing with a cold for the last 5 weeks. Denies any cardiac complaints. Encounter Details Date Type Department Care Team (Latest Contact Info) Description 07/06/2023 8:30 AM EST Office Visit Cardiology, [facility] [address] [place] [address] Arnulfo Arias PA-C [address] [place] [address] Preoperative cardiovascular examination*; HTN, goal below 140/90; History of non-ST elevation myocardial infarction (NSTEMI); Coronary artery disease involving [place] coronary artery of [place] heart without angina pectoris; S/P drug eluting coronary stent placement; Dyslipidemia, goal LDL below 70; Pericardial effusion; MAHARAJ (dyspnea on exertion); Dysuria Allergies Active [...] Active Fluticasone Propionate 50 MCG/ACT Nasal Suspension (Flonase)Indicati ons:Chronic maxillary sinusitis,Cough INSTILL 2 SPRAY(S) IN EACH NOSTRIL ONCE DAILY 48 g 1 08/13/2020 Active Nitroglycerin 0.4 MG Sublingual Tablet Sublingual (Nitrostat) Place 1 Tablet under the tongue every 5 minutes as needed for Pain, Chest. 25 Tablet 5 04/22/2022 Active Additional Information Patient not taking.Reported on 07/06/2023 Rosuvastatin Calcium 40 MG Oral Tablet (Crestor)Indicati ons:Coronary artery disease involving [place] coronary artery of [place] heart without angina pectoris,S/P drug eluting coronary [...] 12/07/2022 Active Famotidine 20 MG Oral Tablet (Pepcid)Indicatio ns:Hiatal hernia TAKE 1 TABLET BY MOUTH AT BEDTIME 30 Tablet 5 03/23/2023 Active Pantoprazole Sodium 40 MG Oral Tablet Delayed Release (Protonix)Indicat ions:Gastritis, presence of bleeding unspecified, unspecified chronicity, unspecified gastritis type Take 1 tablet by mouth once daily 90 Tablet 3 05/16/2023 Active EQ Aspirin Adult Low Dose 81 MG Oral Tablet Delayed Release (aspirin enteric coated)Indication s:Coronary artery disease involving [place] coronary artery of [place] heart without angina pectoris Take 1 tablet by mouth once daily 90 Tablet 2 05/23/2023 Active Losartan Potassium 25 MG Oral Tablet (Cozaar) Take 1 Tablet by mouth in the morning. 31 Tablet 5 07/06/2023 Active ferrous sulfate (FEOSOL) 325 (65 FE) MG Tablet Take 1 Tablet by mouth daily with breakfast. 0 02/09/2018 4 Discontinue d(Patient preference/ discontinua tion) documented as of this encounter (statuses as of 07/06/2023) Active Problems Problem Noted Date Diagnosed Date Prediabetes 11/10/2020 Overview: Per Prediabetes protocol HTN, goal below 140/90 07/06/2019 Dyslipidemia, goal LDL below 70 07/06/2019 Coronary artery disease invo lving [place] coronary artery of [place] heart without angina pectoris 05/29/2017 S/P drug [...] mRNA, LNP-s, No Pre serve, 2-Dose Series (Adimab) 04/16/2021,07/14/2020,06/09/2020 Covid-19, Mrna, Lnp-s, Pf, B ivalent, [...] Sign Reading Time Taken Comments Blood Pressure 148/82 07/06/2023 8:38 AM EST Pulse 80 07/06/2023 8:38 AM EST Temperature - - Respiratory Rate 16 07/06/2023 8:38 AM EST Oxygen Saturation - - Inhaled Oxygen Concentration - - Weight 67 kg (147 lb 12 oz) 07/06/2023 8:[address] Height - - Body Mass Index 28.38 06/28/2023 11:19 AM EST documented in this encounter Progress Notes * Arnulfo Arisa PA-C - 07/06/2023 8:30 AM EST History of Present Illness: Donita Brandon is a very pleasant 83 year old female here today for routine cardiology follow-up evaluation. Following with [facility], hypercalcemia -> primary hyperparathyroidism. Scheduled for parathyroidectomy on August 01, 2023 at [facility]. Improving, resolving, URI symptoms x 5 weeks duration. No current fevers or chills Blood pressure elevated the last three visits per patient report. Inactive except for the housework. Up the basement steps, pulling herself up the banister, not having the strength in the legs chronically, with a little associated shortness of breath. No chest pain. No palpitations. No fluid retention. No lightheadedness, dizziness, near syncope, or syncope. No ep istaxis. No hemoptysis. Off iron supplementation for months. 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 Gastroesophageal reflux disease without esophagitis K21.9 Coronary artery disease involving [place] coronary artery of [place] heart without angina pectoris I25.10 S/P drug eluting coronary stent placement Z95.5 History of non-ST elevation myocardial infarction (NSTEMI) I25.2 HTN, goal below 140/90 I10 Dyslipidemia, goal LDL below 70 E78.5 Prediabetes R73.03 Past Medical History: Diagnosis Date CAD (coronary artery disease) Diaphragmatic hernia Esophageal reflux 03/16/07 Kidney stone PA (myocardial infarction) (HCC) 01/2017 Other osteoporosis 01/31/2002 Other osteoporosis without current pathological fracture 01/31/2002 ICD-10 update of inactive term Social History Tobacco Use Smoking status: Never Smoker Smokeless tobacco: Never Used Substance Use Topics Alcohol use: Yes Comment: occasionally Drug use: No Past Surgical History: Procedure Laterality Date BUNION CORRECTED W/SESAMOIDECTOMY W/ RESECT PROX PHALANX Left 07/01/2017 CORRECTION HALLUX VALGUS, RESECTION PROXIMAL PHALANX BASE performed by Renea Landrum DPM at OR [facility] BUNION CORRECTED WITH PHALANX OSTEOTOMY Left 07/01/2017 CORRECTION HALLUX VALGUS, PROXIMAL PHALANX OSTEOTOMY performed by Renea Landrum DPM at OR [facility] DELIVERY 08/03/1984 x 2 DELIVERY 11/03/1982 emergency c section STILLBORN COLONOSCOPY 01/2004 polpyp, repeat in 3 years COLONOSCOPY W/ LESION REMOVAL, SNARE 11/18/2006 repeat 3yrs adenomatous tissue COLONOSCOPY W/ LESION REMOVAL, SNARE 11/24/2009 path shows adenomatous tissue repeat in 3 years- diverticulosis entire colon COLONOSCOPY, DIAGNOSTIC (RECTUM) 12/11/2012 COLONOSCOPY FLEXIBLE PROXIMAL DIAGNOSTIC performed by Sarmad Vasquez MD at ENDOSCOPY [facility], hyperplastic polyps repeat colonoscopy in 5 years COLONOSCOPY, DIAGNOSTIC (RECTUM) 08/07/2013 COLONOSCOPY FLEXIBLE PROXIMAL DIAGNOSTIC performed by Nargis Collier DO at ENDOSCOPY [facility] COLONOSCOPY, DIAGNOSTIC (RECTUM) 03/15/2018 normal bx, diverticulosis, fair prep, repeat 3 yrs/COLONOSCOPY FLEXIBLE PROXIMAL DIAGNOSTIC performed by Nargis Collier DO at ENDOSCOPY [facility] COLONOSCOPY, DIAGNOSTIC (RECTUM) 11/11/2021 benign adenomatous & serrated adenomatous polyp / COLONOSCOPY FLEXIBLE PROXIMAL DIAGNOSTIC performed by Alejandra Pereira MD at ENDOSCOPY [facility] CYSTOSCOPY 02/02/2005 ansong EGD, FLEXIBLE, DIAGNOSTIC 08/07/2013 ESOPHAGOGASTRODUODENOSCOPY (EGD), FLEXIBLE, TRANSORAL, DIAGNOSTIC performed by Nargis Collier DO at ENDOSCOPY [facility] EGD, FLEXIBLE, DIAGNOSTIC 09/30/2017 mild reactive inflammation, hiatal hernia, esophageal erosions/[facility] EGD, FLEXIBLE, W/BIOPSY 03/16/2007 hiatus hernia gerd EGD, FLEXIBLE, W/BIOPSY 02/07/2009 biopsies from esophagus--no inflammation--very mild irritation of the stomach without evidence of H.Pylori INFORMATION 03/02/2017 cardiac stent x1 LAPAROSCOPY; CHOLECYSTECTOMY 08/29/2009 [facility] - Dr. Huang - cholecystectomy lap - [...] performed by Scott Mckee MD at OR [facility] REMOVE CATARACT, INSERT LENS PROSTH Left 06/15/2016 leftEXTRACAPSULAR CATARACT REMOVAL WITH INTRAOCULAR LENS performed by Scott Mckee MD atOR [facility] REPAIR OF HAMMERTOE, ONE TOE Left 07/01/2017 CORRECTION HAMMERTOE performed by Renea Landrum DPM at OR [facility] TOTAL HYSTERECTOMY 11/1984 NOEMI (Total Abdominal Hysterectomy) Family History Problem Relation Age of Onset Cancer Sister 53 breast, CLL, age 62 Heart Disorder Mother angioplasty Heart Disorder Father Hypertension Mother Mental Disorder Mother depression/anxiety Neurological Disorder Father Alzheimer's Heart Disorder Brother Cancer Father 73 prostate Arthritis Mother Stroke None Thyroid Disorder Mother Review of patient's allergies indicates: Allergen Reactions Environmental [Pollen] Hasn't been properly diagnosed, but has allergy symptoms worse in summer Current Outpatient Medications Medication Sig Dispense Refill VITAMIN D 1000 UNIT PO CAPS 1 capsule daily B-12 1000 MCG PO CAPS one daily Ascorbic Acid 500 MG CAPS Take 1 Cap by mouth 2 times a day. Fluticasone Propionate 50 MCG/ACT Nasal Suspension (Flonase) INSTILL 2 SPRAY(S) IN EACH NOSTRIL ONCE DAILY 48 g 1 Rosuvastatin Calcium 40 MG Oral Tablet (Crestor) Take 1 tablet by mouth once daily 90 Tablet 3 Metoprolol Succinate ER 25 MG Oral Tablet Extended Release 24 Hour (toPROL XL) Take 1 tablet by mouth once daily 90 Tablet 2 Famotidine 20 MG Oral Tablet (Pepcid) TAKE 1 TABLET BY MOUTH AT BEDTIME 30 Tablet 5 Pantoprazole Sodium 40 MG Oral Tablet Delayed Release (Protonix) Take 1 tablet by mouth once daily 90 Tablet 3 EQ Aspirin Adult Low Dose 81 MG Oral Tablet Delayed Release (aspirin enteric coated) Take 1 tablet by mouth once daily 90 Tablet 2 Losartan Potassium 25 MG Oral Tablet (Cozaar) Take 1 Tablet by mouth in the morning. 31 Tablet 5 Nitroglycerin 0.4 MG Sublingual Tablet Sublingual (Nitrostat) Place 1 Tablet under the tongue every5 minutes as needed for Pain, Chest. (Patient not taking: Reported on 07/06/2023) 25 Tablet 5 Loratadine 10 MG Oral Capsule Take 1 Capsule by mouth as needed for Rhinitis. No current facility-administered medications for this visit. OBJECTIVE/PHYSICAL EXAMINATION: BP 148/82 | Pulse 80 | Resp 16 | Wt 67 kg (147 lb 12 oz) | BMI 28.38 kg/m | BSA 1.69 m General: A&Ox3. NAD. HENT: Normocephalic. Atraumatic. Eyes: PER. Conjunctiva pink, sclera clear. Neck: No carotid bruits. No JVD. Heart: RRR, 60 bpm. Soft systolic murmur. No diastolic murmur. PMI is nondisplaced. Lungs: Clear to auscultation. Abdomen: +BS. Soft. Nontender. No masses or organomegaly. Extremities: Lymphedematous changes. No edema. No clubbing. No cyanosis. Limited neurological examination is without focal deficits. Pulses: radial=2/4, posterior tibial=2/4. Data: September 19, 2019 [facility] Interpretation Summary (as per Dr. Nelson): The stress echo is negative for inducible ischemia. Exercise capacity is average. Heart rate response to stress was normal. Blood pressure response to exercise was hypertensive. Dyspnea was noted with stress. Equivocal 1-2mm upsloping ST-se gment depression is noted in the inferior leads. ST-segments normalized within 1 minute of the recovery period. There is very mild hypokinesis of the posterior wall at the base at rest with all otherwall segments nick normally. With stress all wall segments improve in function except the posterior base. The left ventricular ejection fraction increases normally with stress. The left ventric ular systolic function is normal. The LV wall thickness is moderately increased (concentric). The qualitative LV ejection fraction is 55-59% (normal). December 30, 2022 TTE Interpretation Summary (as per Dr. Capellan): There is a small loculated pericardial effusion adjacent to the right ventricular free wall and right atrium visualized in the subcostal images. Tamponade is absent. The LV wall thickness is mildly increased (concentric). The left ventricular wall motion is normal. Calculated LV ejection Fraction = 65% (three dimensional volumes). The left ventricular diastolic function is mildly abnormal (grade I). No significant valvular disease is present. Compared to the images obtained at the time of the prior study dated 09/19/2019, therehas been interval development of a pericardial effusion as noted above. January 19, 2023 Limited TTE Interpretation Summary (as per Dr. Capellan): A focused study was performed per provider request on follow-up of a pericardial effusion. Limited relevant views were therefore obtained. There is a small loculated pericardial effusion adjacent to the right ventricular free wall and right atrium visualized in the subcostal images. Tamponade is absent. Compared to the images obtained at the time of the prior study dated 12/30/2022, there has been no significant interval change. March 16, 2023 TTE Interpretation Summary (as per Dr. Koenig): A focused study was performed per provider request on follow-up of a pericardial effusion. Limited relevant views were therefore obtained. The examination is adequate to evaluate the referral indication. There is a small loculated pericardial effusion adjacent to the right ventricular free wall and right atrium visualized in the subcostal images. Cardiac tamponade is absent. Compared to prior study of 01/19/2023, there is no significant change EKG on July 06, 2023 personally reviewed, revealed normal sinus rhythm at 67 bpm with a possible old anterior infarct. QTc 431 ms. When compared to prior available tracing, there is no significant change. ASSESSMENT AND RECOMMENDATIONS/PLAN: URI. Symptoms appear viral in etiology. General measures advised including rest, hydration, use of Claritin, Flonase, Mucinex, as needed acetaminophen Dysuria. Check urinalysis and urine culture. Follow-up with PCP. Preoperative cardiology consultation. Options discussed. Risks explained. Patient unable to achieve4 Mets without symptoms. Recommend risk stratification dobutamine stress echocardiography which will also allow evaluation of the asymptomatic chronic pericardial effusion. Continue metoprolol and aspirin without perioperative interruption. If aspirin must be held due to excessive risk of bleeding,hold for the shortest period of time felt to be safe (? 3 to 5 days) then resume postoperatively assoon as able. ASCVD. History of NSTEMI on 03/02/17, status post drug-eluting stent to the LAD. Moderate residual ostial right coronary artery stenosis. Preserved left ventricular systolic function. Continue beta-vickie, ASA and statin See above. Dyslipidemia. LDL 32 mg/dL on February 09, 2023. Continue rosuvastatin 40 mg/day Hypertension. Nonpharmacologic treatment of hypertension discussed including dietary salt restriction, resumptionof aerobic activity (has a home treadmill), limited alcohol intake. Add losartan 25 mg/day for additional blood pressure control. Benefits, use and risks discussed. Family history of premature coronary artery disease (Father PA 40's). Continue aggressive risk factor and lifestyle modification. Symptomatic iron deficiency anemia. [place] to be secondary to a large hiatal hernia with GI recommendations to use daily PPI, oral iron supplementation, and monitor her CBC and iron studies. September 2017 EGD revealed LA grade A esophagitis in the distal esophagus, nonbleeding esophageal erosion in the distal esophagus, medium-size hiatal hernia, gastritis, and mild mucosal changes in the duodenal bulb. March 2018 colonoscopy revealed moderate diverticulosis in the entire examined colon, one 5 mm polyp in the descending colon, and internal hemorrhoids. Off iron since July. Check CBC prior to surgery. GERD. On PPI, pantoprazole. See above. Prediabetes. Followed by PCP Routine cardiology follow-up in 6 months or as needed. ER with emergencies. Arnulfo Arias PA-C Department of Cardiology I spent a total of 40-54 minutes (exact time 45 mins) on the date of service in preparation, delivery, and documentation of the care provided to Donita Brandon excluding any time spent in the performance of separately billed services. This visit involved medical care services related to at least one serious condition or complex condition requiring ongoing care. This chart was completed in part utilizing [employer] Speech Voice Recognition Software. Grammatical errors, random word insertions, prounoun errors, and incomplete sentences are an occasional consequence of this system due to software l imitations, ambient noise, and hardware issues. Any formal questions or concerns about the content,text, or information contained within the body of this dictation should be directly addressed to the provider for clarification. documented in this encounter Procedure Notes * Felipe Nelson MD - 07/06/2023 8:47 AM ESTAssociated Order(s): EKG REASON FOR STUDY: Pre-Op;Pre-Op CONCLUSIONS: Normal sinus rhythm Anterior infarct (cited on or before 28-SEP-2017) Abnormal ECG When compared with ECG of 19-JAN-2023 10:35, Questionable change in initial forces of Anterior leads Ventricular Rate: 67 Atrial Rate: 67 RI Interval: 158 QRS Duration: 74 QT/QTc: 408/431 ms P-R-T [place]: 40 : 54 : 59 degrees documented in this encounter Nursing Notes * Harlan Heredia LPN - 07/06/2023 8:37 AM EST Patient identified by full name and date of Chief Complaint Patient presents with Pre-op Clearance Parathyroidectomy on 08/01/23. 8 1/2 month follow up. Dealing with a cold for the last 5 weeks. Denies any cardiac complaints. Examination Room: 1 Name: Donita Brandon Date of : (1940). Reason for Visit: Pre-Op Interim Hospitalization(s): Denies Problems/Concerns: See chief complaint Chest Pain/SOB: See chief complaint [facility] Discussed: Yes [facility] is a way you can talk to your provider online through e-mail. Would you like to sign up? I can activate it for you? DECLINES Patient was instructed to not get up on the exam table until directed and assisted by their provider; patient is to remain seated in the chair/ wheelchair/ exam table for fall prevention and safety reasons. Patient is aware to have assistance to step down off exam table with personnel. Patient voiced full comprehension of instructions. documented in this encounter Plan of Treatment Upcoming Encounters Date Type Department Care Team (Latest Contact Info) Description 07/11/2023 9:15 AM EDT Imaging Cardiac Studies, [facility] [address] [place] [id number] 08/01/2023 11:50 AM EDT Hospital Encounter [place] [facility], OPERATING ROOM [facility] [address] [facility] [place] [address] Shalini Berger MD [address] [place] [address] 08/01/2023 11:50 AM EDT - 08/01/2023 2:17 PM EDT Surgery OR [facility], OPERATING ROOM [facility], [facility] [facility] [address] [place] [address] Shalini Berger MD [address] [place] [facility] [place] [address] PARATHYROIDECTOMY 08/12/2023 9:00 AM EDT Office Visit Otolaryngology/Head & Neck/Facial Plastic Surgery [address] [facility] [place] [address] Shalini Berger MD [address] [place] [address] 08/25/2023 9:20 AM EDT Office Visit General Internal Medicine [facility] [address] [place] [address] Vesta Reyes MD [address] [place] [address] 01/13/2024 11:00 AM EDT Office Visit Cardiology, [facility] [address] [place] [address] Arnulfo Arias PA-C [address] [place] [id number] Pending Results Name Type Priority Associated Diagnoses Date /Time CULTURE, URINE, QUANTITATIVE Lab Routine Dysuria 07/06/2023 10:00 AM EST Scheduled Orders Name Type Priority Associated Diagnoses Orde r Schedule ECHO, STRESS (DOBUTAMINE) W/ PHYSICIAN Echocardiology Routine HTN, goal below 140/90 Expected: 07/07/2023, Expires: 08/05/2024 CULTURE, URINE, QUANTITATIVE Lab Routine Dysuria Expected: 07/06/2023, Expires: 07/05/2024 Scheduled Procedures Name Priority Associated Diagnoses Date/Ti [...] this encounter Medical Devices Implanted Type Area Type Photography Supervisor Device Identifier Shelf Expiration Date Model / Serial / Lot Lens Intraoc 21.5 - [id number] - [id number] Implanted:Qty: 1 on 06/01/2016 by Scott Mckee MD at OR [facility] Right: Eye [employer] 12/30/2020 [id number] / [id number] / [id number] Lens Intraoc 20.0 - [id number] - [id number] Implanted:Qty: 1 on 06/15/2016 by Scott Mckee MD at OR [facility] Left: Eye [employer] 01/29/2021 [id number] / [id number] / [id number] 2.0 Cannulated Screw Implanted:Qty: 1 on 07/01/2017 by Renea Landrum DPM at OR [facility] Left: Foot [employer] [id number] T / / Tr[employer] Drill Pin, 2 X100 Mm Implanted:Qty: 1 on 07/01/2017 by Renea Landrum DPM at OR [facility] Left: Foot [employer] 12/30/2018 [id number] / / [id number] documented as of this encounter Procedures Procedure Name Priority Date/Time Associated Diagnosis Comments RI ECG ROUTINE ECG W/LEAST 12 LDS W/I&R Routine 07/06/2023 8:47 AM EST Preoperative cardiovascular examination documented in this encounter Results * (ABNORMAL) URINALYSIS, REFLEX TO MICROSCOPIC (07/06/2023 10:00 AM EST) Color, Urine Yellow Colorless, Light Yellow, Yellow, Dark Yellow 07/06/2023 2:03 PM EST LAB[facility]ATORY [facility] Clarity, Urine Clear Clear 07/06/2023 2:03 PM EST LAB[facility]ATORY [facility] Glucose, Urine Negative Negative mg/dL 07/06/2023 2:03 PM EST LAB[facility]ATORY [facility] Bilirubin, Urine Negative Negative 07/06/2023 2:03 PM EST LAB[facility]ORY [facility] Ketone, Urine Negative Negative mg/dL 07/06/2023 2:03 PM EST LAB[facility]ATORY [facility] Specific [place], Urine 1.027 1.003 - 1.030 07/06/2023 2:03 PM EST LAB[facility]ATORY [facility] Blood, Urine Negative Negative 07/06/2023 2:03 PM EST LAB[facility]ATORY [facility] pH, Urine 5.5 5.0 - 7.5 Units 07/06/2023 2:03 PM EST [facility] Protein, Urine 30(A) Negative mg/dL 07/06/2023 2:03 PM EST [facility] Urobilinogen, Urine Normal Normal mg/dL 07/06/2023 2:03 PM EST [facility] Nitrite, Urine Negative Negative 07/06/2023 2:03 PM EST [facility] Esterase, Urine Trace(A) Negative 07/06/2023 2:03 PM EST [facility] RBC, Urine 3-5(A) 0 - 2 /HPF 07/06/2023 2:03 PM EST [facility] WBC, Urine 3-5(A) 0 - 2 /HPF 07/06/2023 2:03 PM EST [facility] Bacteria, Urine 0-25 0 - 25 /HPF 07/06/2023 2:03 PM EST LABORATORY [facility] Calcium Oxalate Crystal, Urine 50+(A) None /HPF 07/06/2023 2:03 PM EST [facility]ORY [facility] Urine Urine specimen obtained by clean catch procedure / Unknown Non-blood Collection / Unknown 07/06/2023 10:00 AM EST 07/06/2023 10:00 AM EST Arnulfo Arias PA-C LAB URINE ORDERABLE S Performing Organization Address City/State/[facility] Co de Phone Number LAB[facility]ATORY [facility] [address] [place] [address] * (ABNORMAL) BASIC METABOLIC PANEL (07/06/2023 9:24 AM EST) BUN 14 6 - 20 mg/dL 07/06/2023 10:41 AM EST LABORATORY [facility] 57-10 Creatinine 0.7 0.5 - 1.0 mg/dL 07/06/2023 10:41 AM EST LABORATORY [facility] 57-10 Estimated Glomerular Filtration Rate 87 >=60 mL/min 07/06/2023 10:41 AM EST LABORATORY [place] [facility] 57-10 Comment:eGFR is calculated b ased on the CKD-EPI 2020 equation Sodium 139 135 - 146 mmol/L 07/06/2023 10:41 AM EST LABORATORY [place] [facility] 57-10 Potassium 4.5 3.5 - 5.1 mmol/L 07/06/2023 10:41 AM EST LAB[facility]ORY [place] [facility] 57-10 Chloride 104 98 - 107 mmol/L 07/06/2023 10:41 AM EST LAB[facility]ATORY [place] [facility] 57-10 CO2 27 22 - 32 mmol/L 07/06/2023 10:41 AM EST LAB[facility] [place] [facility] 57-10 Anion Gap 8 7 - 15 mmol/L 07/06/2023 10:41 AM EST LAB[facility]ORY [place] [facility] 57-10 Glucose 105 70 - 120 mg/dL 07/06/2023 10:41 AM EST LAB[facility]ATORY [place] [facility] 57-10 Calcium 10.4(H) 8.4 - 10.2 mg/dL 07/06/2023 10:41 AM EST LAB[facility]AT[facility] [place] [facility]10 Blood Venous blood specimen / Unknown Venipuncture / Unknown 07/06/2023 9:24 AM EST 07/06/2023 9:24 AM EST Arnulfo Arias PA-C LAB BLOOD ORDERABLE S Performing Organization Address [facility] [place] Co de Phone Number [facility] [place] [address] [place] [phone] * EKG (07/06/2023 8:47 AM EST) 07/06/2023 8:47 AM EST Narrative Procedure Note Felipe Nelson MD - 07/06/2023 8:47 AM EST REASON FOR STUDY: Pre-Op;Pre-Op CONCLUSIONS: Normal sinus rhythm Anterior infarct (cited on or before 28-SEP-2017) Abnormal ECG When compared with ECG of 19-JAN-2023 10:35, Questionable change in initial forces of Anterior leads Ventricular Rate: 67 Atrial Rate: 67 RI Interval: 158 QRS Duration: 74 QT/QTc: 408/431 ms P-R-T [place]: 40 : 54 : 59 degrees Arnulfo Arias PA-C EKG Performing Organization Address City/[facility]/ZIP Co de Phone Number [facility] documented in this encounter Visit Diagnoses Diagnosis Preoperative cardiovascular examination- Primary Pre-operative cardiovascular examination HTN, goal below 140/90 Unspecified essential hypertension History of non-ST elevation myocardial infarction (NSTEMI) Old myocardial infarction Coronary artery disease involving [place] coronary artery of [place] heart without angina pectoris S/P drug eluting coronary stent placement Postsurgical percutaneous transluminal coronary angioplasty status Dyslipidemia, goal LDL below 70 Other and unspecified hyperlipidemia Pericardial effusion Unspecified disease of pericardium MAHARAJ (dyspnea on exertion) Other dyspnea and [...] and were consensually agreed upon. Care Teams Parts Assembler Relationship Specialty Start Date End Date Vesta Reyes MD [address] [place] [address] PCP - General 08/16/07 documented as of this encounter"
--- OUTSIDE RECORDS SUMMARY | 2023-08-30 05:26 | External Medical Summary ---
Author Name Unknown Address Unknown Organization K01:LABORATORY [facility] [place] - [facility] [address] [facility] [address] Laboratory Report Ordering Provider Test Date Status XIN TERAN 08/01/2023 09:07:00 Final Observation Date Value Abnormality Reference (Units ) Status Parathyrin.intact [Mass/volume] in Serum or Plasma 08/01/2023 09:07:00 257 Above high normal 10-65 (pg/mL) Final Performing Location LABORATORY [facility] [place] - [address] [facility] [address]
--- OUTSIDE RECORDS SUMMARY | 2023-08-30 05:26 | External Medical Summary ---
Author Name Unknown Address Unknown Organization K01:LABORATORY [facility] [place] - [address] [facility] [place] [address] Laboratory Report Ordering Provider Test Date Status JHOANA STAPLETON 07/06/2023 09:24:57 Final Observation Date Value Abnormality Reference (Units ) Status SYNC LEUKOCYTES IN BLOOD BY AUTOMATED COUNT 07/06/2023 09:24:57 7.47 4.00-10.80 (K/uL) Final Segs 07/06/2023 09:24:57 59.3 40.0-75.0 (%) Final Lymphs % 07/06/2023 09:24:57 27.4 18.0-42.0 (%) Final Monos 07/06/2023 09:24:57 6.6 1.0-11.0 (%) Final Eosinophils 07/06/2023 09:24:57 5.8 0.0-6.0 (%) Final Basos 07/06/2023 09:24:57 0.8 0.0-2.0 (%) Final Immature Granulocyte, Percent 07/06/2023 09:24:57 0.1 0.0-2.0 (%) Final Absolute Segs 07/06/2023 09:24:57 4.43 1.80-7.70 (K/uL) Final Lymphs, absolute 07/06/2023 09:24:57 2.05 1.00-4.80 (K/ul) Final Monos, Abs 07/06/2023 09:24:57 0.49 0.00-1.10 (K/uL) Final Eos, Abs 07/06/2023 09:24:57 0.43 0.00-0.70 (K/uL) Final Basos, Abs 07/06/2023 09:24:57 0.06 0.00-0.20 (K/uL) Final Immature Granulocytes, Number 07/06/2023 09:24:57 0.01 0.00-0.20 (K/uL) Final Performing Location LABORATORY [facility] - [facility] [address] [facility] [address]
--- OUTSIDE RECORDS SUMMARY | 2023-08-30 05:26 | External Medical Summary ---
Author Name Unknown Address Unknown Organization K01:[facility] - [address] [facility] [address] Laboratory Report Ordering Provider Test Date Status JHOANA STAPLETON 07/06/2023 10:00:31 Final Observation Date Value Abnormality Reference (Units ) Status Color of Urine by Auto 07/06/2023 10:00:31 Yellow Colorless, Light Yellow, Yellow, Dark Yellow Final Clarity, Urine 07/06/2023 10:00:31 Clear Clear Final Glucose [Mass/volume] in Urine by Automated test strip 07/06/2023 10:00:31 Negative Negative (mg/dL) Final Bilirubin.total [Presence] in Urine by Automated test strip 07/06/2023 10:00:31 Negative Negative Final Ketones [Mass/volume] in Urine by Automated test strip 07/06/2023 10:00:31 Negative Negative (mg/dL) Final Specific gravity, Urine 07/06/2023 10:00:31 1.027 1.003-1.030 Final Hemoglobin [Presence] in Urine by Automated test strip 07/06/2023 10:00:31 Negative Negative Final pH, Urine 07/06/2023 10:00:31 5.5 5.0-7.5 (Units) Final Protein [Mass/volume] in Urine by Automated test strip 07/06/2023 10:00:31 30 Abnormal Negative (mg/dL) Final Urobilinogen [Mass/volume] in Urine by Automated test strip 07/06/2023 10:00:31 Normal Normal (mg/dL) Final Nitrite [Presence] in Urine by Automated test strip 07/06/2023 10:00:31 Negative Negative Final Leukocyte esterase [Presence] in Urine by Automated test strip 07/06/2023 10:00:31 Trace Abnormal Negative Final RBC, Urine 07/06/2023 10:00:31 3-5 Abnormal 0-2 (/HPF) Final WBC, Urine 07/06/2023 10:00:31 3-5 Abnormal 0-2 (/HPF) Final Bacteria [#/area] in Urine sediment by Microscopy high power field 07/06/2023 10:00:31 0-25 0-25 (/HPF) Final Calcium oxalate crystals [#/area] in Urine sediment by Microscopy high power field 07/06/2023 10:00:31 50+ Abnormal None (/HPF) Final Performing Location LABORATORY [facility] - [address] [facility] [address]
--- OUTSIDE RECORDS SUMMARY | 2023-08-30 05:26 | External Medical Summary | Summary of Care ---
Author Name Unknown Organization [facility] Address [address] [place] [address] Phone [phone] Care Team Providers Care Branch Coordinator Name Role Phone Vesta Reyes MD Primary Care Provider + Reason for Visit * Reason Comments NEW PATIENT Hyperparathyroidism. * Evaluate & Treat - Unlimited Visits (Within 10 days (routine)) - Authorized Specialty Diagnoses / Procedures Referred By Brett whitlock Referred To Contact Otolaryngology Diagnoses Hyperparathyroidism (HCC) Nyla Hudson MD [address] [place] [address] Shalini Berger MD [address] [place] [address] Referral ID Status Reason Start Date Expiration Date Visits Requested Visits Authorized [id number] Authorized Specialty Services Required 05/03/[phone] Encounter Details Date Type Department Care Team (Latest Contact Info) Description 06/28/2023 11:30 AM EST Office Visit Otolaryngology/Hea d & Neck/Facial Plastic Surgery [address] [place] [address] Shalini Berger MD [address] [place] [address] Hyperparathyroidism (HCC)* Allergies Active Allergy Reactions Criticality Noted Date Comments Pollen 11/05/2021 Hasn't been properly diagnosed, but has allergy symptoms worse in summer documented as of this encounter (statuses as of 07/01/2023) Medications Medication Sig Dispensed Refills Start Date End Date Status VITAMIN D 1000 UNIT PO CAPS 1 capsule daily 0 01/25/2011 Active B-12 1000 MCG PO CAPS one daily 0 Act david Ascorbic Acid 500 MG CAPS Take 1 Cap by mouth 2 times a day. 0 09/27/2014 Active ferrous sulfate (FEOSOL) 325 (65 FE) MG Tablet Take 1 Tablet by mouth daily with breakfast. 0 02/09/2018 Active Fluticasone Propionate 50 MCG/ACT Nasal Suspension (Flonase)Indications: Chronic maxillary sinusitis,Cough INSTILL 2 SPRAY(S) IN EACH NOSTRIL ONCE DAILY 48 g 1 08/13/2020 Active Nitroglycerin 0.4 MG Sublingual Tablet Sublingual (Nitrostat) Place 1 Tablet under the tongue every 5 minutes as needed for Pain, Chest. 25 Tablet 5 04/22/2022 Active Rosuvastatin Calcium 40 MG Oral Tablet (Crestor)Indications: Coronary artery disease involving [place] coronary artery of [place] heart without angina pectoris,S/P drug eluting coronary [...] 12/07/2022 Active Famotidine 20 MG Oral Tablet (Pepcid)Indications:H iatal hernia TAKE 1 TABLET BY MOUTH AT BEDTIME 30 Tablet 5 03/23/2023 Active Pantoprazole Sodium 40 MG Oral Tablet Delayed Release (Protonix)Indications :Gastritis, presence of bleeding unspecified, unspecified chronicity, unspecified gastritis type Take 1 tablet by mouth once daily 90 Tablet 3 05/16/2023 Active EQ Aspirin Adult Low Dose 81 MG Oral Tablet Delayed Release (aspirin enteric coated)Indications:Co ronary artery disease involving [place] coronary artery of [place] heart without angina pectoris Take 1 tablet by mouth once daily 90 Tablet 2 05/23/2023 Active documented as of this encounter (statuses as of 07/01/2023) Active Problems Problem Noted Date Diagnosed Date Prediabetes 11/10/2020 Overview: Per Prediabetes protocol HTN, goal below 140/90 07/06/2019 Dyslipidemia, goal LDL below 70 07/06/2019 Coronary artery disease invo lving [place] coronary artery of [place] heart without angina pectoris 05/29/2017 S/P drug eluting coronary stent placement 2017 History of non-ST elevation myocardial infarctio n (NSTEMI) 05/29/2017 Senile osteoporosis 03/10/2017 Gastroesophageal reflux disease without esophagi tis 03/10/2017 documented as of this encounter (statuses as of 07/01/2023) Resolved Problems Problem Noted Date Diagnosed Date [...] as of this encounter (statuses as of 07/01/2023) Immunizations Name Administration Dates Next Due COVID-19 mRNA, LNP-s, No Pre serve, 2-Dose Series ([employer]) 04/16/2021,07/14/2020,06/09/2020 Covid-19, Mrna, Lnp-s, Pf, B ivalent, [...] Sign Reading Time Taken Comments Blood Pressure 147/78 06/28/2023 11:19 AM EST Pulse 60 06/28/2023 11:19 AM EST Temperature 36.6 C (97.9 F) 06/28/2023 11:[address] Respiratory Rate - - Oxygen Saturation - - Inhaled Oxygen Concentration - - Weight 66.3 kg (146 lb 1.6 oz) 06/28/2023 11:19 AM EST Height 153.7 cm (5' 0.5") 06/28/2023 11:19 AM ES T Body Mass Index 28.06 06/28/2023 11:19 AM EST documented in this encounter Progress Notes * Sharonda Stahl CRNP - 06/28/2023 11:34 AM EST Images from the original note were not included. Department of Otolaryngology - Head and Neck Surgery Facial Plastic Surgery [address] [phone] 06/28/2023 History of Present Illness: Donita Brandon is a 83 year old female seen at the request of Vesta Reyes MD for the initialevaluation of hyperparathyroidism. She has been seen by Dr. Mendoza and Dr. Hudson. She has history of kidney stones in the past. She also has osteoporosis. Her 4D CT was non localizing and her NM parathyroid scan did not show any evidence of a parathyroid adenoma. She was sent by Dr. Hudson for non localizing primary hyperparathyroidism. 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 She is here today for surgical discussion. PTH: 02/09/23: 105 12/03/20: 123 Calcium: 02/09/23: 10.5 12/03/20: 10.[address] 03/31/23: IMPRESSION 1. 2 soft tissue densities adjacent to the esophagus and posterior to the thyroid as described above demonstrate enhancement characteristics which may reflect parathyroid tissue. 2. Small additional focus of enhancing soft tissue anterior to the cricoid on the left is closer tothyroid parenchyma in its enhancement characteristics and is more likely reflected to thyroid tissue, although an additional focus of parathyroid gland is not excluded. 3. Dental lucency about the most posterior remaining right maxillary molar tooth with adjacent softtissue thickening in the paranasal sinus. 4. Advanced disc degeneration and multilevel foraminal stenosis in the mid and lower cervical spine. NM parathyroid scan 04/15/23: IMPRESSION No scintigraphic evidence of parathyroid adenoma. US thyroid 01/19/21: FINDINGS The thyroid is normal in size shape and echotexture. The right lobe measures 4.7 x 1.4 x 1.3 cm. The isthmus measures 1 mm. The left lobe measures 4.1 x 1.6 x 1.4 cm. No lateral cervical lymphadenopathy identified. Subcentimeter right thyroid midpole nodule noted measuring 3 x 3 x 3 mm. No parathyroid adenoma identified on this examination. IMPRESSION No parathyroid adenoma identified on this examination. DEXA 05/27/21: RESULTS: Lumbar Spine: 0.870 gms/cm2 T-score: -1.9 Left femoral neck: 0.588 gms/cm2 T-score: -2.4 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 Gastroesophageal reflux disease without esophagitis K21.9 Coronary artery disease involving [place] coronary artery of [place] heart without angina pectoris I25.10 S/P drug eluting coronary stent placement Z95.5 History of non-ST elevation myocardial infarction (NSTEMI) I25.2 HTN, goal below 140/90 I10 Dyslipidemia, goal LDL below 70 E78.5 Prediabetes R73.03 Past Medical History: Diagnosis Date CAD (coronary artery disease) Diaphragmatic hernia Esophageal reflux 03/16/[address] (myocardial infarction) ([facility]) 01/2017 Other osteoporosis 01/31/2002 Other osteoporosis without current pathological fracture 01/31/2002 ICD-10 update of inactive term Past Surgical History: Procedure Laterality Date BUNION CORRECTED W/SESAMOIDECTOMY W/ RESECT PROX PHALANX Left 07/01/2017 CORRECTION HALLUX VALGUS, RESECTION PROXIMAL PHALANX BASE performed by Renea Landrum DPM at OR [facility] BUNION CORRECTED WITH PHALANX OSTEOTOMY Left 07/01/2017 CORRECTION HALLUX VALGUS, PROXIMAL PHALANX OSTEOTOMY performed by Renea Landrum DPM at OR [facility] DELIVERY 08/03/1984 x 2 DELIVERY 11/03/1982 emergency c section STILLBORN COLONOSCOPY 01/2004 polpyp, repeat in 3 years COLONOSCOPY W/ LESION REMOVAL, SNARE 11/18/2006 repeat 3yrs adenomatous tissue COLONOSCOPY W/ LESION REMOVAL, SNARE 11/24/2009 path shows adenomatous tissue repeat in 3 years- diverticulosis entire colon COLONOSCOPY, DIAGNOSTIC (RECTUM) 12/11/2012 COLONOSCOPY FLEXIBLE PROXIMAL DIAGNOSTIC performed by Sarmad Vasquez MD at ENDOSCOPY [facility], hyperplastic polyps repeat colonoscopy in 5 years COLONOSCOPY, DIAGNOSTIC (RECTUM) 08/07/2013 COLONOSCOPY FLEXIBLE PROXIMAL DIAGNOSTIC performed by Nargis Collier DO at ENDOSCOPY [facility] COLONOSCOPY, DIAGNOSTIC (RECTUM) 03/15/2018 normal bx, diverticulosis, fair prep, repeat 3 yrs/COLONOSCOPY FLEXIBLE PROXIMAL DIAGNOSTIC performed by Nargis Collier DO at ENDOSCOPY [facility] COLONOSCOPY, DIAGNOSTIC (RECTUM) 11/11/2021 benign adenomatous & serrated adenomatous polyp / COLONOSCOPY FLEXIBLE PROXIMAL DIAGNOSTIC performed by Alejandra Pereira MD at ENDOSCOPY [facility] CYSTOSCOPY 02/02/2005 ansong EGD, FLEXIBLE, DIAGNOSTIC 08/07/2013 ESOPHAGOGASTRODUODENOSCOPY (EGD), FLEXIBLE, TRANSORAL, DIAGNOSTIC performed by Nargis Collier DO at ENDOSCOPY [facility] EGD, FLEXIBLE, DIAGNOSTIC 09/30/2017 mild reactive inflammation, hiatal hernia, esophageal erosions/[facility] EGD, FLEXIBLE, W/BIOPSY 03/16/2007 hiatus hernia gerd EGD, FLEXIBLE, W/BIOPSY 02/07/2009 biopsies from esophagus--no inflammation--very mild irritation of the stomach without evidence of H.Pylori INFORMATION 03/02/2017 cardiac stent x1 LAPAROSCOPY; CHOLECYSTECTOMY 08/29/2009 [facility] - Dr. Huang - cholecystectomy lap - [...] performed by Scott Mckee MD at OR [facility] REMOVE CATARACT, INSERT LENS PROSTH Left 06/15/2016 leftEXTRACAPSULAR CATARACT REMOVAL WITH INTRAOCULAR LENS performed by Scott Mckee MD atOR [facility] REPAIR OF HAMM[place]OE, ONE TOE Left 07/01/2017 CORRECTION HAMMERTOE performed by Renea Landrum DPM at [facility] TOTAL HYSTERECTOMY 11/1984 NOEMI (Total Abdominal Hysterectomy) Current Outpatient Medications Medication Sig Dispense Refill VITAMIN D 1000 UNIT PO CAPS 1 capsule daily B-12 1000 MCG PO CAPS one daily Ascorbic Acid 500 MG CAPS Take 1 Cap by mouth 2 times a day. Fluticasone Propionate 50 MCG/ACT Nasal Suspension (Flonase) INSTILL 2 SPRAY(S) IN EACH NOSTRIL ONCE DAILY 48 g 1 Nitroglycerin 0.4 MG Sublingual Tablet Sublingual (Nitrostat) Place 1 Tablet under the tongue every5 minutes as needed for Pain, Chest. 25 Tablet 5 Rosuvastatin Calcium 40 MG Oral Tablet (Crestor) [...] by mouth once daily 90 Tablet 2 ferrous sulfate (FEOSOL) 325 (65 FE) MG Tablet Take 1 Tablet by mouth daily with breakfast. (Patient not taking: Reported on 06/28/2023) Loratadine 10 MG Oral Capsule Take 1 Capsule by mouth as needed for Rhinitis. No current facility-administered medications for this visit. Review of patient's allergies indicates: Allergen Reactions Environmental [Pollen] Hasn't been properly diagnosed, but has allergy symptoms worse in summer Family History Problem Relation Age of Onset Cancer Sister 53 breast, CLL, age 62 Heart Disorder Mother angioplasty Heart Disorder Father Hypertension Mother Mental Disorder Mother depression/anxiety Neurological Disorder Father Alzheimer's Heart Disorder Brother Cancer Father 73 prostate Arthritis Mother Stroke None Thyroid Disorder Mother Social History Tobacco Use Smoking status: Never Smokeless tobacco: Never Substance Use Topics Alcohol use: Yes Comment: occasionally Vaping/E-Cigarette Use Vaping/E-Cigarette Use Never User Passive Exposure No Counseling Given? No Vaping/E-Cigarette Substances Nicotine No Other No Flavoring No THC No Cannabidiol (CBD) No Vaping/E-Cigarette Devices Disposable No Pre-filled or Refillable Cartridge No Refillable Tank No Pre-filled Pod No Review of Systems Negative for constitutional, eyes, cardiac, pulmonary, hepatic, renal, digestive, hematologic, epileptic, syncopal, musculo-skeletal, mental health, integumentary, hypertensive, lipid, arthritic, diabetic, thyroid, or neurologic disorders (except as listed in the PMH and Problem List). Physical Examination: BP 147/78 | Pulse 60 | Temp 36.6 C (97.9 F) (Infrared ) | Ht 1.537 m (5' 0.5") | Wt 66.3 kg (146 lb 1.6 oz) | BMI 28.06 kg/m | BSA 1.68 m General: this is a healthy appearing female who appears her stated age, comfortable, and appropriately verbally conversant without hoarseness. Face: no cutaneous masses or lesions. Facial movement was symmetric without weakness. The parotid and submandibular glands were normal to palpation. Eyes: EOMI, pupils equal and reactive. No nystagmus. Nose: Examination of the nose revealed septum is non-obstructing. The turbinates are normal in appearance. No lesions, masses, polyps, or mucopurulence. Oral cavity: Examination of the oral cavity revealed no mass lesions or infection. The palate was noted to be intact without evidence of clefting. The tongue exhibited normal mobility. Oropharynx: Mucosa was moist without lesion or inflammation. Uvula midline. Tonsils not enlarged. Neck: Visualization and palpation of the neck revealed no mass lesions, no thyromegaly or thyroid masses. No skin lesions or inflammatory processes were detected. The cervical musculature was normal to palpation. Lymphatics (cervical):There were no palpable lymph nodes in the posterior triangle, submandibular triangle, jugulodigastric region, or central neck. Assessment and Plan: Donita Brandon is a 83 year old female who presents for primary hyperparathyroidism with non localizing 4D CT with likely multiple gland disease. - Follow up with her deli manager in June for repeat echo as planned prior to surgery The patient is a candidate for parathyroidectomy. Informed consent was obtained after extensively discussing the procedure. Benefits and risks, including hypocalcemia, injury to the recurrent laryngeal nerve, need for further procedures, and general risks of surgery, were also discussed. There was an opportunity for questions and answers. Patient expresses understanding of the procedure and givesinformed consent to proceed. Surgery will be scheduled with Dr. Berger. The patient was seen and examined with Dr. Shalini Berger. ANGELIKA Vides Otolaryngology 06/28/23 Pt is a good candidate for parathyroidectomy. Risks and benefits fully reviewed and informed consent obtained. A date was also selected. Thank you for the referral, and please feel free to contact me with any questions. Shalini Berger MD, FACS Head & Neck Surgical Oncology, Microvascular Reconstruction, and Robotic Surgery documented in this encounter Plan of Treatment Upcoming Encounters Date Type Department Care Team (Latest Contact Info) Description 07/06/2023 8:30 AM EST Office Visit Cardiology, [facility] [address] [place] [address] Arnulfo Arias PA-C [address] [place] [address] 07/14/2023 8:20 AM EDT Telemedicine Endocrinology, [place] [address], [place] [id number] Jose Mendoza MD [address] [place], [place] [id number] 08/01/2023 11:50 AM EDT Hospital Encounter OR C, OPERATING ROOM [facility] [address] [place] [address] Shalini Berger MD [address] [place] [address] 08/01/2023 11:50 AM EDT - 08/01/2023 2:17 PM EDT Surgery OR [facility], OPERATING ROOM [facility] [address] [place] [address] Shalini Berger MD [address] [place] [address] PARATHYROIDECTOMY 08/12/2023 9:00 AM EDT Office Visit Otolaryngology/Head & Neck/Facial Plastic Surgery [address], [place] [id number] Shalini Berger MD [address] [place] [address] 08/25/2023 9:20 AM EDT Office Visit General Internal Medicine [place] Joana Ricci [address] [place] [address] Vesta Reyes MD [address] [place] [address] Scheduled Procedures Name Priority Associated Diagnoses Date/Ti me PARATHYROIDECTOMY Hyperparathyroidism (HCC) 08/01/2023 11:50 AM EDT Scheduled Referrals Name Type Priority Associated Diagnoses Order Schedule OTOLARYNGOLOGY REFERRAL OP Referral Within 10 days (routine) Hyperparathyroidism (HCC) Ordered: 05/03/2023 Health Maintenance Due Date Last Done Comments [...] this encounter Medical Devices Implanted Type Area Garment Tag Stringer Device Identifier Shelf Expiration Date Model / Serial / Lot Lens Intraoc 21.5 - [id number] - [id number] Implanted:Qty: 1 on 06/01/2016 by Scott Mckee MD at OR [facility] Right: Eye [employer] 12/30/2020 [id number] / [id number] / [id number] Lens Intraoc 20.0 - [id number] - [id number] Implanted:Qty: 1 on 06/15/2016 by Scott Mckee MD at OR [facility] Left: Eye [employer] 01/29/2021 [id number] / [id number] / [id number] 2.0 Cannulated Screw Implanted:Qty: 1 on 07/01/2017 by Renea Landrum DPM at OR [facility] Left: Foot [employer] [id number] / / Trim-It Drill Pin, 2 X100 Mm Implanted:Qty: 1 on 07/01/2017 by Renea Landrum DPM at OR [facility] Left: Foot [employer] 12/30/2018 [id number] / / [id number] documented as of this encounter Visit Diagnoses Diagnosis Hyperparathyroidism (HCC)- Primary Hyperparathyroidism, unspecified Hyperparathyroidism (HCC) Hyperparathyroidism, unspecified documented in this [...] and were consensually agreed upon. Care Teams Branch Coordinator Relationship Specialty Start Date End Date Vesta Reyes MD [address] [facility] [place] [address] PCP - General 08/16/07 documented as of this encounter
--- OUTSIDE RECORDS SUMMARY | 2023-08-30 05:26 | External Medical Summary ---
Author Name Unknown Address Unknown Organization K01:LABORATORY [facility] [place] - [address] [facility] [place] [address] Laboratory Report Ordering Provider Test Date Status JUSTIN PRATT 08/01/2023 10:02:00 Final Observation Date Value Abnormality Reference (Units ) Status Calcium 08/01/2023 10:02:00 8.7 8.4-10.2 ( mg/dL) Final Performing Location LABORATORY [facility] - [address] [place] [address]
--- OUTSIDE RECORDS SUMMARY | 2023-08-30 05:26 | External Medical Summary ---
Author Name Unknown Address Unknown Organization [id number]:[facility] [place] [facility] [address] [facility] [address] Laboratory Report Ordering Provider Test Date Status XIN TERAN 08/01/2023 08:46:00 Final Observation Date Value Abnormality Reference (Units ) Status Parathyrin.intact [Mass/volume] in Serum or Plasma 08/01/2023 08:46:00 211 Above high normal 10-65 (pg/mL) Final Performing Location [facility] [place] [address] [facility] [address]
--- OUTSIDE RECORDS SUMMARY | 2023-08-30 05:26 | External Medical Summary ---
Author Name Unknown Address Unknown Organization [id number]:[facility] [place] - [facility] [address] [place] [address] Laboratory Report Ordering Provider Test Date Status XIN TERAN 08/01/2023 08:31:00 Final Observation Date Value Abnormality Reference (Units ) Status Parathyrin.intact [Mass/volume] in Serum or Plasma 08/01/2023 08:31:00 212 Above high normal 10-65 (pg/mL) Final Performing Location [facility] [place] - [address] [facility] [address]
--- OUTSIDE RECORDS SUMMARY | 2023-08-30 05:26 | External Medical Summary ---
Author Name Unknown Address Unknown Organization [id number]:[facility] [place] - [facility] [address] [place] [address] Laboratory Report Ordering Provider Test Date Status XIN TERAN 08/01/2023 07:46:00 Final Observation Date Value Abnormality Reference (Units ) Status Parathyrin.intact [Mass/volume] in Serum or Plasma 08/01/2023 07:46:00 479 Above high normal 10-65 (pg/mL) Final Performing Location [facility] [place] - [address] [place] [address]
--- OUTSIDE RECORDS SUMMARY | 2023-08-30 05:26 | External Medical Summary ---
Author Name Unknown Address Unknown Organization [id number]:[facility] [place] - [address] [facility] [address] Laboratory Report Ordering Provider Test Date Status JHOANA STAPLETON 07/06/2023 09:24:57 Final Observation Date Value Abnormality Reference (Units ) Status WBC, Total 07/06/2023 09:24:57 7.47 4.00-10.8 0 (K/uL) Final RBC 07/06/2023 09:24:57 4.76 3.85-5.15 (M/uL) Final Hemoglobin 07/06/2023 09:24:57 13.4 12.0-15.3 (g/dL) Final Anemia reflex testing trigge rs on a HGB < 12.0 for Females and HGB < 13.0 for Males in accordance with the WHO Anemia Guidelines
Anemia reflex testing triggers on a HGB < 12.0 for Females and HGB < 13.0 for Males in accordance with the WHO Anemia Guidelines HCT 07/06/2023 09:24:57 43.4 36.0-45.2 (%) Final MCV 07/06/2023 09:24:57 91.2 81.5-97.5 (fL) Final MCH 07/06/2023 09:24:57 28.2 27.0-34.0 (pg) Final MCHC 07/06/2023 09:24:57 30.9 32.0-36.0 (g/dL) Final RDW 07/06/2023 09:24:57 14.5 11.5-15.5 (%) Final Platelets 07/06/2023 09:24:57 183 140-400 (K /uL) Final MPV 07/06/2023 09:24:57 10.9 6.6-11.1 ( fL) Final Nucleated erythrocytes/100 leukocytes [Ratio] in Blood by Automated count 07/06/2023 09:24:57 0 <=0 (/100 WBCs) Fi nal Performing Location [facility] [place] - [address] [facility] [address]
--- OUTSIDE RECORDS SUMMARY | 2023-08-30 05:26 | External Medical Summary ---
Author Name Unknown Address Unknown Organization [id number]:[facility] [place] [address] [place] [address] Laboratory Report Ordering Provider Test Date Status JUSTIN PRATT 08/01/2023 10:02:00 Final Observation Date Value Abnormality Reference (Units ) Status Parathyrin.intact [Mass/volume] in Serum or Plasma 08/01/2023 10:02:00 29 15-65 (pg/mL) Final Performing Location [facility] [place] [address] [place] [address]
--- OUTSIDE RECORDS SUMMARY | 2023-08-30 05:26 | External Medical Summary ---
Author Name Unknown Address Unknown Organization K01:[facility] [place] - [address] [place] [id number] Laboratory Report Ordering Provider Test Date Status JHOANA STAPLETON 07/06/2023 10:00:31 Final Observation Date Value Abnormality Reference (Units) Status Bacteria identified in Specimen by Culture 07/06/2023 10:00:31 No significant growth Final Test: Culture, Urine, Quanti tative
Specimen Source: Urine, Clean Catch
Specimen Type: Urine
Specimen Date: 07/06/2023 10:00 AM
Result Date: 07/07/2023 10:03 AM
Result Status: Final result
Resulting Lab: [facility] [place]
[address]
[place] [id number]

CULTURE

No significant growth

null Performing Location [facility] [place] - [address] [facility] [address]
--- OUTSIDE RECORDS SUMMARY | 2023-08-30 05:26 | External Medical Summary | Summary of Care ---
Author Name Unknown Organization [facility] Address [address] [facility] [place] [address] Phone [phone] Care Team Providers Care Punchboard Stuffer Name Role Phone Vesta Reyes MD Primary Care Provider + Reason for Visit * Reason Onset Date Comments Test Results 07/08/2023 Encounter Details Date Type Department Care Team (Late st Contact Info) Description 07/08/2023 Telephone Cardiology, [facility] [address] [place] [address] Arnulfo Arias PA-C [address] [facility], [place] [id number] Test Results Allergies Active Allergy Reactions Criticality Noted Date Comments Pollen 11/05/2021 Hasn't been properly diagnosed, but has allergy symptoms worse in summer documented as of this encounter (statuses as of 07/08/2023) Medications Medication Sig Dispensed Refills Start Date [...] Oral Tablet (Crestor)Indication s:Coronary artery disease involving [place] coronary artery of [place] heart without angina pectoris,S/P drug eluting coronary [...] (aspirin enteric coated)Indications: Coronary artery disease involving [place] coronary artery of [place] heart without angina pectoris Take 1 tablet by mouth once daily 90 Tablet 2 05/23/2023 Active Losartan Potassium 25 MG Oral Tablet (Cozaar) Take 1 Tablet by mouth in the morning. 31 Tablet 5 07/06/2023 Active documented as of this encounter (statuses as of 07/08/2023) Active Problems Problem Noted Date Diagnosed Date Prediabetes 11/10/2020 Overview: Per Prediabetes protocol HTN, goal below 140/90 07/06/2019 Dyslipidemia, goal LDL below 70 07/06/2019 Coronary artery disease invo lving [place] coronary artery of [place] heart without angina pectoris 05/29/2017 S/P drug eluting coronary stent placement 2017 History of non-ST elevation myocardial infarctio n (NSTEMI) 05/29/2017 Senile osteoporosis 03/10/2017 Gastroesophageal reflux disease without esophagi tis 03/10/2017 documented as of this encounter (statuses as of 07/08/2023) Resolved Problems Problem Noted Date Diagnosed Date [...] as of this encounter (statuses as of 07/08/2023) Immunizations Name Administration Dates Next Due COVID-19 mRNA, LNP-s, No Pre serve, 2-Dose Series ([employer]) 04/16/2021,07/14/2020,06/09/2020 Covid-19, Mrna, Lnp-s, Pf, B ivalent, 30 Mcg, IM, 12 yrs and above ([employer]) 02/09/2022 Pneumococcal Conjugate Vacc, 13 Valent (Prevnar) [...] Telephone Encounter - Harlan Heredia LPN - 07/08/2023 9:03 AM EST Called patient and informed of Arnulfo's message. Patient verbalized understanding. Result note previously sent to PCP. ----- Message from Arnulfo Arias PA-C sent at 07/07/2023 10:55 PM EST ----- Labs are OK/stable. Abnormal Urinalysis. Urine culture without growth. Follow-up with PCP. documented in this encounter Plan of Treatment Upcoming Encounters Date Type Department Care Team (Latest Contact Info) Description 07/11/2023 9:15 AM EDT Imaging Cardiac Studies, [facility] [address] [facility] [place] [address] 08/01/2023 11:50 AM EDT Hospital Encounter [facility] [address] [place] [address] Shalini Berger MD [address] [place] [address] 08/01/2023 11:50 AM EDT - 08/01/2023 2:17 PM EDT Surgery [facility], [facility]PER[facility] [address] [place] [address] Shalini Berger MD [address] [place] [address] PARATHYROIDECTOMY 08/12/2023 9:00 AM EDT Office Visit Otolaryngology/Head & Neck/Facial Plastic Surgery [address] [place] [address] Shalini Berger MD [address] [place] [address] 08/25/2023 9:20 AM EDT Office Visit General Internal Medicine [facility] [address] [facility] [place] [address] Vesta Reyes MD [address] [facility] [place] [address] 01/13/2024 11:00 AM EDT Office Visit Cardiology, [facility] [address] [place] [address] Arnulfo Arias PA-C [address] [place] [address] Scheduled Procedures Name Priority Associated Diagnoses Date/Ti [...] this encounter Medical Devices Implanted Type Area Decator Operator Device Identifier Shelf Expiration Date Model / Serial / Lot Lens Intraoc 21.5 - [id number] - [id number] Implanted:Qty: 1 on 06/01/2016 by Scott Mckee MD at OR [facility] Right: Eye [employer] 12/30/2020 [id number] / [id number] / [id number] Lens Intraoc 20.0 - [id number] - [id number] Implanted:Qty: 1 on 06/15/2016 by Scott Mckee MD at OR [facility] Left: Eye [employer] LOMB 01/29/2021 [id number] / [id number] / [id number] 2.0 Cannulated Screw Implanted:Qty: 1 on 07/01/2017 by Renea Landrum DPM at OR [facility] Left: Foot [employer] [id number] / / Trim-It Drill Pin, 2 X100 Mm Implanted:Qty: 1 on 07/01/2017 by Renea Landrum DPM at OR [facility] Left: Foot [employer] 12/30/2018 [id number] / / [id number] documented as of this encounter Advance Directives [...] and were consensually agreed upon. Care Teams Punchboard Stuffer Relationship Specialty Start Date End Date Vesta Reyes MD [address] [facility] [place] [address] PCP - General 08/16/07 documented as of this encounter
--- OUTSIDE RECORDS SUMMARY | 2023-08-30 05:26 | External Medical Summary | Summary of Care ---
Author Name Unknown Organization [facility] Address [address] [facility] [address] Phone [phone] Care Team Providers Care Bench Inspector Name Role Phone Karen Reyes MD Primary Care Provider + Reason for Visit * Reason Comments eRx-Medication Refill Encounter Details Date Type Department Care Team (Late st Contact Info) Description 05/21/2023 Refill General Internal Medicine [facility] [address] [place] [address] Karen Reyes MD [address] [place] [address] Coronary artery disease involving [place] coronary artery of [place] heart without angina pectoris Allergies Active Allergy Reactions Criticality Noted Date Comments Pollen 11/05/2021 Hasn't been properly diagnosed, but has allergy symptoms worse in summer documented as of this encounter (statuses as of 05/23/2023) Medications Medication Sig Dispensed Refills Start Date [...] Oral Tablet (Crestor)Indicatio ns:Coronary artery disease involving [place] coronary artery of [place] heart without angina pectoris,S/P drug eluting coronary [...] (aspirin enteric coated)Indications :Coronary artery disease involving [place] coronary artery of [place] heart without angina pectoris Take 1 tablet by mouth once daily 90 Tablet 2 05/23/2023 Active EQ Aspirin Adult Low Dose 81 MG Oral Tablet Delayed Release (aspirin enteric coated)Indications :Coronary artery disease involving [place] coronary artery of [place] heart without angina pectoris Take 1 tablet by mouth once daily 90 Tablet 3 05/26/2022 05/23/2023 Discontinued documented as of this encounter (statuses as of 05/23/2023) Active Problems Problem Noted Date Diagnosed Date Prediabetes 11/10/2020 Overview: Per Prediabetes protocol HTN, goal below 140/90 07/06/2019 Dyslipidemia, goal LDL below 70 07/06/2019 Coronary artery disease invo lving [place] coronary artery of [place] heart without angina pectoris 05/29/2017 S/P drug eluting coronary stent placement 2017 History of non-ST elevation myocardial infarctio n (NSTEMI) 05/29/2017 Senile osteoporosis 03/10/2017 Gastroesophageal reflux disease without esophagi tis 03/10/2017 documented as of this encounter (statuses as of 05/23/2023) Resolved Problems Problem Noted Date Diagnosed Date [...] as of this encounter (statuses as of 05/23/2023) Immunizations Name Administration Dates Next Due COVID-19 mRNA, LNP-s, No Pre serve, 2-Dose Series ([employer]) 04/16/2021,07/14/2020,06/09/2020 Covid-19, Mrna, Lnp-s, Pf, B ivalent, 30 Mcg, IM, 12 yrs and above ([employer]) 02/09/2022 Pneumococcal Conjugate Vacc, 13 Valent (Prevnar) [...] encounter Miscellaneous Notes * Telephone Encounter - Srini Buckley [facility] - 05/23/2023 10:34 AM ESTSigned Prescriptions: Disp Refills EQ Aspirin Adult Low Dose 81 MG Oral Table*90 Tab*2 Sig: Take 1 tablet by mouth once dailyAuthorizing Provider: KAREN REYES User: SRINI BRAXTON documented in this encounter Plan of Treatment Upcoming Encounters Date Type Department Care Team (Late st Contact Info) Description 06/14/2023 11:00 AM EST Office Visit Otolaryngology/Head & Neck/Facial Plastic Surgery [address] [place] [address] Shalini Berger MD [address] [place] [address] 07/06/2023 8:30 AM EST Office Visit Cardiology, [facility] [address] [place] [address] Arnulfo Arias PA-C [address] [place] [address] 07/14/2023 8:20 AM EDT Telemedicine Endocrinology, [facility] [address] [place] [address] Jose Mendoza MD [address] [place] [address] 08/25/2023 9:20 AM EDT Office Visit General Internal Medicine [facility] [address] [place] [address] Karen Reyes MD [address] [place] [address] Health Maintenance Due Date Last Done Comments [...] this encounter Medical Devices Implanted Type Area Faith Healer Device Identifier Shelf Expiration Date Model / Serial / Lot Lens Intraoc 21.5 - [id number] - [id number] Implanted:Qty: 1 on 06/01/2016 by Scott Mckee MD at OR [facility] Right: Eye [employer] 12/30/2020 [id number] / [id number] / [id number] Lens Intraoc 20.0 - [id number] - [id number] Implanted:Qty: 1 on 06/15/2016 by Scott Mckee MD at OR [facility] Left: Eye [employer]OM[employer] 01/29/2021 [id number] / [id number] / [id number] Trim-It Drill Pin, 2 X100 Mm Implanted:Qty: 1 on 07/01/2017 by Renea Landrum DPM at OR [facility] Left: Foot [employer] 12/30/2018 [id number] / / [id number] documented as of this encounter Visit Diagnoses Diagnosis Coronary artery disease involving [place] coronary artery of [place] heart without angina pectoris documented in this encounter Advance Directives Latest [...] and were consensually agreed upon. Care Teams Bench Inspector Relationship Specialty Start Date End Date Karen Reyes MD [address] [place] [address] PCP - General 08/16/07 documented as of this encounter
--- OUTSIDE RECORDS SUMMARY | 2023-08-30 05:27 | External Medical Summary | Summary of Care ---
Author Name Unknown Organization [facility] Address [address] [place] [address] Phone [phone] Care Team Providers Care Senior Safety Support Manager Name Role Phone Vesta Reyes MD Primary Care Provider + Reason for Referral * Precert (Within 10 days (routine)) - Pending Review Specialty Diagnoses / Procedures Referred By Brett whitlock Referred To Contact Radiology Diagnoses Primary hyperparathyroidism (HCC) Procedures NM PARATHYROID SCAN (SPECT & CT) Jose Mendoza MD [address] [place] [address] Referral ID Status Reason Start Date Expiration Date V isits Requested Visits Authorized [id number] Pending Review 04/01/2023 999 [id number] Reason for Visit * Precert (Within 10 days (routine)) - Pending Review Specialty Diagnoses / Procedures Referred By Brett whitlock Referred To Contact Radiology Diagnoses Primary hyperparathyroidism (HCC) Procedures NM PARATHYROID SCAN (SPECT & CT) Jose Mendoza MD [address] [place] [address] Referral ID Status Reason Start Date Expiration Date V isits Requested Visits Authorized [id number] Pending Review 04/01/2023 999 [id number] Encounter Details Date Type Department Care Team (Latest Contact Info) Description 04/15/2023 12:08 PM EST - 04/15/2023 2:35 PM EST Hospital Encounter Radiology, [facility] [address] [place] [address] Arrived Discharge Disposition: Home - Self Care Allergies Active Allergy Reactions Criticality Noted Date Comments Pollen 11/05/2021 Hasn't been properly diagnosed, but has allergy symptoms worse in summer documented as of this encounter (statuses as of 04/16/2023) Medications Medication Sig Dispensed Refills Start Date [...] ONCE DAILY 48 g 1 08/13/2020 Active Additional Information Patient taking differently: PRN, Rhinitis, Reported on 02/09/2023 Nitroglycerin 0.4 MG Sublingual Tablet Sublingual (Nitrostat) Place 1 Tablet under the tongue every 5 minutes as needed for Pain, Chest. 25 Tablet 5 04/22/2022 Active EQ Aspirin Adult Low Dose 81 MG Oral Tablet Delayed Release (aspirin enteric coated)Indications: Coronary artery disease involving mary's ig[place] coronary artery of mary's igloo heart without angina pectoris Take 1 tablet by mouth once daily 90 Tablet 3 05/26/2022 Active Pantoprazole Sodium 40 MG Oral Tablet Delayed Release (Protonix)Indicatio ns:Gastritis, presence of bleeding unspecified, unspecified chronicity, unspecified gastritis type Take 1 tablet by mouth once daily 90 Tablet 3 05/26/2022 Active Rosuvastatin Calcium 40 MG Oral Tablet (Crestor)Indication s:Coronary artery disease involving mary[place] ig[place] coronary artery of mary[place] ig[place] heart without angina pectoris,S/P drug eluting coronary [...] AT BEDTIME 30 Tablet 5 03/23/2023 Active Hospital, Clinic, or Other Facility Administered Medication Ordered Dose Route Frequency Start Date End Date Status sodium chloride 0.9 % flush/inj 10 mL 10 mL IV PUSH ONCE 04/15/2023 04/15/2023 Ended documented as of this encounter (statuses as of 04/16/2023) Active Problems Problem Noted Date Diagnosed Date Prediabetes 11/10/2020 Overview: Per Prediabetes protocol HTN, goal below 140/90 07/06/2019 Dyslipidemia, goal LDL below 70 07/06/2019 Coronary artery disease invo lving mary's igloo coronary artery of mary[place] igloo heart without angina pectoris 05/29/2017 S/P drug eluting coronary stent placement 2017 History of non-ST elevation myocardial infarctio n (NSTEMI) 05/29/2017 Senile osteoporosis 03/10/2017 Gastroesophageal reflux disease without esophagi tis 03/10/2017 documented as of this encounter (statuses as of 04/16/2023) Resolved Problems Problem Noted Date Diagnosed Date [...] as of this encounter (statuses as of 04/16/2023) Immunizations Name Administration Dates Next Due COVID-19 mRNA, LNP-s, No Pre serve, 2-Dose Series ([employer]) 04/16/2021,07/14/2020,06/09/2020 Covid-19, Mrna, Lnp-s, Pf, B ivalent, [...] Care Team (Late st Contact Info) Description 05/03/2023 2:00 PM EST Office Visit Otolaryngology [facility] [address] [place] [address] Nyla Hudson MD [address] [place] [address] 07/06/2023 8:30 AM EST Office Visit Cardiology, [facility] [address] [place] [address] Arnulfo Arias PA-C [address] [place] [address] 07/14/2023 8:20 AM EDT Telemedicine Endocrinology, [facility] [address] [place] [address] Jose Mendoza MD [address] [place] [address] 08/25/2023 9:20 AM EDT Office Visit General Internal Medicine [facility] [address] [facility] [place] [address] Vesta Reyes MD [address] [facility] [place] [address] Health Maintenance Due Date Last Done Comments [...] this encounter Medical Devices Implanted Type Area Hospital Receptionist Device Identifier Shelf Expiration Date Model / Serial / Lot Lens Intraoc 21.5 - [id number] - [id number] Implanted:Qty: 1 on 06/01/2016 by Scott Mckee MD at OR [facility] Right: Eye [employer] 12/30/2020 [id number] / [id number] / [id number] Lens Intraoc 20.0 - [id number] - [id number] Implanted:Qty: 1 on 06/15/2016 by Scott Mckee MD at OR [facility] Left: Eye BA[employer]OM[employer] 01/29/2021 [id number] / [id number] / [id number] Trim-It Drill Pin, 2 X100 Mm Implanted:Qty: 1 on 07/01/2017 by Renea Landrum DPM at OR [facility] Left: Foot [employer] 12/30/2018 [id number] / / [id number] documented as of this encounter Procedures Procedure Name Priority Date/Time Associated Diagnosis Comments NM PARATHYROID SCAN (SPECT & CT) Routine 04/15/2023 4:16 PM EST Primary hyperparathyroidism (HCC) documented in this encounter Results * NM PARATHYROID SCAN (SPECT & CT) (04/15/2023 4:16 PM EST) Anatomical Region Laterality Modality Neck, Thyroid Nuclear Medicine 04/15/2023 4:22 PM EST Impressions 04/15/2023 4:25 PM EST IMPRESSION No scintigraphic evidence of parathyroid adenoma. I have personally reviewed this examination and agree with the resident/fellow physician's interpretation. Narrative 04/15/2023 4:25 PM EST EXAM NM PARATHYROID SCAN (SPECT - 04/15/2023 4:16 pm HISTORY Primary hyperparathyroidism. ? Multigland disease on CT neck. Requesting sestamibi scan prior to parathyroid surgery for localization COMPARISON CT neck dated 03/31/2023 TECHNIQUE Following the intravenous administration of 25.7 mCi of Tc-99m sestamibi, planar and SPECT imaging was performed immediately post injection. Delayed planar and SPECT imaging was performed after three hours. Low-dose CT of the neck was performed and fused with the SPECT images on a separate workstation. FINDINGS PLANAR IMAGING: Normal thyroid and salivary gland activity on the immediate images with significant washout of radiotracer from the thyroid on the delayed images. No abnormal persistent focal activity is identified on the delayed images. SPECT/FUSION: No focal abnormal areas of increased activity. ADDITIONAL CT FINDINGS: Mild calcified atherosclerosis of the carotid vasculature. Dependent changes in the lungs. Bibasilar atelectasis secondary to the large hiatal hernia. LAD stent. Degenerative osseous changes. Procedure Note Harlan Bailey, DO - 04/15/2023 EXAM NM PARATHYROID SCAN (SPECT - 04/15/2023 4:16 pm HISTORY Primary hyperparathyroidism. ? Multigland disease on CT neck. Requestingsestamibi scan prior to parathyroid surgery for localization COMPARISON CT neck dated 03/31/2023 TECHNIQUE Following the intravenous administration of 25.7 mCi of Tc-99m sestamibi,planar and SPECT imaging was performed immediately post injection.Delayed planar and SPECT imaging was performed after three hours.Low-dose CT of the neck was performed and fused with the SPECT images on [employer] workstation. FINDINGS PLANAR IMAGING: Normal thyroid and salivary gland activity on the immediate images withsignificant washout of radiotracer from the thyroid on the delayed images.No abnormal persistent focal activity is identified on the delayedimages. SPECT/FUSION: No focal abnormal areas of increased activity. ADDITIONAL CT FINDINGS: Mild calcified atherosclerosis of the carotid vasculature. Dependentchanges in the lungs. Bibasilar atelectasis secondary to the large hiatalhernia. LAD stent. Degenerative osseous changes. IMPRESSION IMPRESSION No scintigraphic evidence of parathyroid adenoma. I have personally reviewed this examination and agree with the resident/fellow physician's interpretation. Jose Mendoza MD [facility] NUC[facility] documented in this encounter Visit Diagnoses Diagnosis Primary hyperparathyroidism (HCC) Primary hyperparathyroidism documented in this encounter Administered Medications Inactive Administered Medications - up to 3 most recent administrations Medication Order MAR Action Action Date Dose Rate Site sodium chloride 0.9 % flush/inj 10 mL 10 mL, IV Push, ONCE, On Tue04/15/23 at 1224, For 1 dose, Do not flush if lock, PICC, or central line not in place; IV infusing or unable to flush., Radiology Medication Routing (Non-IR) Given 04/15/2023 12:15 PM EST 10 mL Antecubital Right Technetium Tc 99m Sestamibi (Sestamibi) inj 25 millicurie 25 millicurie, Intravenous, ONCE, On Tue04/15/23 at 1224, For 1 dose, Radiology Medication Routing (Non-IR) Given 04/15/2023 12:15 PM EST 25.7 millicuries Antecubital Right documented in this encounter Advance Directives Latest [...] and were consensually agreed upon. Care Teams Senior Safety Support Manager Relationship Specialty Start Date End Date Vesta Reyes MD [address] [facility] [place] [address] PCP - General 08/16/07 documented as of this encounter
--- OUTSIDE RECORDS SUMMARY | 2023-08-30 05:27 | External Medical Summary | Summary of Care ---
Author Name Unknown Organization [facility] Address [address] [facility] [place] [address] Phone [phone] Care Team Providers Care Service Advocate Contact Name Role Phone Vesta Reyes MD Primary Care Provider + Reason for Visit * Reason Comments eRx-Medication Refill Encounter Details Date Type Department Care Team (Late st Contact Info) Description 05/14/2023 Refill Cardiology, [facility] [address] [place] [address] Pieter Ely PA-C [address] [place] [address] Gastritis, presence of bleeding unspecified, unspecified chronicity, unspecified gastritis type Allergies Active Allergy Reactions Criticality Noted Date Comments Pollen 11/05/2021 Hasn't been properly diagnosed, but has allergy symptoms worse in summer documented as of this encounter (statuses as of 05/16/2023) Medications Medication Sig Dispensed Refills Start Date [...] (aspirin enteric coated)Indications :Coronary artery disease involving [place]uke[place] coronary artery of [place]e heart without angina pectoris Take 1 tablet by mouth once daily 90 Tablet 3 05/26/2022 Active Rosuvastatin Calcium 40 MG Oral Tablet (Crestor)Indicatio ns:Coronary artery disease involving [place]uke[place] coronary artery of miccosukee heart without angina pectoris,S/P drug eluting coronary [...] once daily 90 Tablet 3 05/16/2023 Active Pantoprazole Sodium 40 MG Oral Tablet Delayed Release (Protonix)Indicati ons:Gastritis, presence of bleeding unspecified, unspecified chronicity, unspecified gastritis type Take 1 tablet by mouth once daily 90 Tablet 3 05/26/2022 05/16/2023 Discontinued documented as of this encounter (statuses as of 05/16/2023) Active Problems Problem Noted Date Diagnosed Date Prediabetes 11/10/2020 Overview: Per Prediabetes protocol HTN, goal below 140/90 07/06/2019 Dyslipidemia, goal LDL below 70 07/06/2019 Coronary artery disease invo lving miccosukee coronary artery of miccosukee heart without angina pectoris 05/29/2017 S/P drug eluting coronary stent placement 2017 History of non-ST elevation myocardial infarctio n (NSTEMI) 05/29/2017 Senile osteoporosis 03/10/2017 Gastroesophageal reflux disease without esophagi tis 03/10/2017 documented as of this encounter (statuses as of 05/16/2023) Resolved Problems Problem Noted Date Diagnosed Date [...] as of this encounter (statuses as of 05/16/2023) Immunizations Name Administration Dates Next Due COVID-19 mRNA, LNP-s, No Pre serve, 2-Dose Series ([employer]) 04/16/2021,07/14/2020,06/09/2020 Covid-19, Mrna, Lnp-s, Pf, B ivalent, 30 Mcg, IM, 12 yrs and above ([employer]) 02/09/2022 Pneumococcal Conjugate Vacc, 13 Valent (Prevnar) [...] Telephone Encounter - Pieter Ely PA-C - 05/16/2023 3:29 PM ESTSigned Prescriptions: Disp Refills Pantoprazole Sodium 40 MG Oral Tablet Chanell*90 Tab*3 Sig: Take 1 tablet by mouth once daily Authorizing Provider: PIETER ELY * Telephone Encounter - Harlan Heredia LPN - 05/16/2023 9:25 AM ESTPending Prescriptions: Disp Refills Pantoprazole Sodium 40 MG Oral Tablet Chanell*90 Tab*3 Sig: Take 1 tablet by mouth once daily * Telephone Encounter - Harlan Heredia LPN - 05/16/2023 9:23 AM EST Did you pend patient's preferred pharmacy and medication before forwarding?yes Pharmacy: [facility] [address] [address] [address] Pending Prescriptions: Disp Refills Pantoprazole Sodium 40 MG Oral Tablet Del*90 Tab*3 Sig: Take 1 tablet by mouth once daily Last Visit: 10/25/2022 (in office), Visit date not found (telemedicine) Next Visit: 07/06/2023 If no future appointments scheduled, and last appointment is greater than a year ago, please schedule patient for a follow-up appointment Last date the medication was ordered: 05/26/22 Is this request for a controlled substance?No Urine Drug Screen:No results found for this or any previous visit. Patient Phone Numbers Labs: Lab Results Component Value Date/Time CREAT 0.7 02/09/2023 11:05 AM CREAT 0.9 04/17/2020 02:46 PM POTASSIUM 4.5 02/09/2023 11:05 AM POTASSIUM 4.3 04/17/2020 02:46 PM TSH [...] Care Team (Late st Contact Info) Description 05/17/2023 11:30 AM EST Office Visit Otolaryngology/Head & Neck/Facial Plastic Surgery [address] [place] [address] Shalini Berger MD [address] [place] [address] 07/06/2023 8:30 AM EST Office Visit Cardiology, [facility] [address] [place] [address] Pieter Ely PA-C [address] [place] [address] 07/14/2023 8:20 AM EDT Telemedicine Endocrinology, [place] [address] [place] [address] Jose Mendoza MD [address] [place] [address] 08/25/2023 9:20 AM EDT Office Visit General Internal Medicine [facility] [address] [place] [address] Vesta Reyes MD [address] [facility] [place] [address] Health Maintenance Due Date Last Done Comments [...] this encounter Medical Devices Implanted Type Area Fish Technologist Device Identifier Shelf Expiration Date Model / Serial / Lot Lens Intraoc 21.5 - [id number] - [id number] Implanted:Qty: 1 on 06/01/2016 by Scott Mckee MD at OR [facility] Right: Eye [employer] 12/30/2020 [id number] / [id number] / [id number] Lens Intraoc 20.0 - [id number] - [id number] Implanted:Qty: 1 on 06/15/2016 by Scott Mckee MD at OR [facility] Left: Eye [employer]OM[employer] 01/29/2021 [id number] / [id number] / [id number] Trim-It Drill Pin, 2 X100 Mm Implanted:Qty: 1 on 07/01/2017 by Renea Landrum DPM at OR [facility] Left: Foot [employer] 12/30/2018 [id number] / / [id number] documented as of this encounter Visit Diagnoses Diagnosis Gastritis, presence of bleeding unspecified, unspecified chronicity, unspecified gastritis type documented in this encounter Advance Directives Latest [...] and were consensually agreed upon. Care Teams Service Advocate Contact Relationship Specialty Start Date End Date Vesta Reyes MD [address] [place] [address] PCP - General 08/16/07 documented as of this encounter
--- OUTSIDE RECORDS SUMMARY | 2023-08-30 05:27 | External Medical Summary | Summary of Care ---
Author Name Unknown Organization [facility] Address [address] [place] [address] Phone [phone] Care Team Providers Care Ell Tutor Name Role Phone Vesta Reyes MD Primary Care Provider + Reason for Visit * Reason Onset Date Comments Test Results 04/20/2023 Encounter Details Date Type Department Care Team (Late st Contact Info) Description 04/20/2023 Telephone [facility], [place] [address] [place] [address] oJse Mendoza MD [address] [place] [address] Test Results Allergies Active Allergy Reactions Criticality Noted Date Comments Pollen 11/05/2021 Hasn't been properly diagnosed, but has allergy symptoms worse in summer documented as of this encounter (statuses as of 04/20/2023) Medications Medication Sig Dispensed Refills Start Date [...] (aspirin enteric coated)Indications :Coronary artery disease involving shoshone-bannock coronary artery of shoshone-bannock heart without angina pectoris Take 1 tablet by mouth once daily 90 Tablet 3 05/26/2022 Active Pantoprazole Sodium 40 MG Oral Tablet Delayed Release (Protonix)Indicati ons:Gastritis, presence of bleeding unspecified, unspecified chronicity, unspecified gastritis type Take 1 tablet by mouth once daily 90 Tablet 3 05/26/2022 Active Rosuvastatin Calcium 40 MG Oral Tablet (Crestor)Indicatio ns:Coronary artery disease involving shoshone-bannock coronary artery of shoshone-bannock heart without angina pectoris,S/P drug eluting coronary [...] AT BEDTIME 30 Tablet 5 03/23/2023 Active Amoxicillin-Pot Clavulanate 500-125 MG Oral Tablet (Augmentin)Indicat ions:Acute non-recurrent maxillary sinusitis Take 1 Tablet by mouth in the morning and 1 Tablet before bedtime. Do all this for 10 days. 20 Tablet 0 04/19/2023 04/29/2023 Active documented as of this encounter (statuses as of 04/20/2023) Active Problems Problem Noted Date Diagnosed Date Prediabetes 11/10/2020 Overview: Per Prediabetes protocol HTN, goal below 140/90 07/06/2019 Dyslipidemia, goal LDL below 70 07/06/2019 Coronary artery disease invo lving shoshone-bannock coronary artery of shoshone-bannock heart without angina pectoris 05/29/2017 S/P drug eluting coronary stent placement 2017 History of non-ST elevation myocardial infarctio n (NSTEMI) 05/29/2017 Senile osteoporosis 03/10/2017 Gastroesophageal reflux disease without esophagi tis 03/10/2017 documented as of this encounter (statuses as of 04/20/2023) Resolved Problems Problem Noted Date Diagnosed Date [...] as of this encounter (statuses as of 04/20/2023) Immunizations Name Administration Dates Next Due COVID-19 mRNA, LNP-s, No Pre serve, 2-Dose Series ([employer]) 04/16/2021,07/14/2020,06/09/2020 Covid-19, Mrna, Lnp-s, Pf, B ivalent, 30 Mcg, IM, 12 yrs and above ([employer]) 02/09/2022 Pneumococcal Conjugate Vacc, 13 Valent (Prevnar) [...] encounter Miscellaneous Notes * Telephone Encounter - Teressa Campuzano MED ASSIST - 04/20/2023 9:37 AM EST Spoke with pt, relayed message from Dr. Mendoza. Pt verbalized understanding with no further questions. Pt will keep ENT appt. * Telephone Encounter - Teressa Campuzano MED ASSIST - 04/20/2023 9:37 AM EST ----- Message from Jose Mendoza MD sent at 04/17/2023 1:00 PM EST ----- Please update pt with following. Parathyroid scan reviewed. No discrete parathyroid adenoma noted. 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 Adviseto keep fu with ENT on 05/03/2023 to discuss surgical options. If surgical option is not pursued, will restart treatment for osteoporosis. Thanks documented in this encounter Plan of Treatment Upcoming Encounters Date Type Department Care Team (Late st Contact Info) Description 05/03/2023 2:00 PM EST Office Visit Otolaryngology [facility] [address] [facility] [place] [address] Nyla Hudson MD [address] [place] [address] 07/06/2023 8:30 AM EST Office Visit Cardiology, [facility] [address] [place] [address] Arnulfo Arias PA-C [address] [place] [address] 07/14/2023 8:20 AM EDT Telemedicine Endocrinology, [place] [address] [place], [place] [address] Jose Mendoza MD [address] [place] [address] 08/25/2023 9:20 AM EDT Office Visit General Internal Medicine [facility] [place] [address] [place] [address] Vesta Reyes MD [address] [facility] [place] [address] Health Maintenance Due Date Last Done Comments [...] this encounter Medical Devices Implanted Type Area Grapple Operator Device Identifier Shelf Expiration Date Model / Serial / Lot Lens Intraoc 21.5 - [id number] - [id number] Implanted:Qty: 1 on 06/01/2016 by Scott Mckee MD at OR [facility] Right: Eye [employer] 12/30/2020 [id number] / [id number] / [id number] Lens Intraoc 20.0 - [id number] - [id number] Implanted:Qty: 1 on 06/15/2016 by Scott Mckee MD at OR [facility] Left: Eye [employer] 01/29/2021 [id number] / [id number] / [id number] Trim-It Drill Pin, 2 X100 Mm Implanted:Qty: 1 on 07/01/2017 by Renea Landrum DPM at OR [facility] Left: Foot [employer] 12/30/2018 [id number] / / [id number] documented as of this encounter Advance Directives [...] and were consensually agreed upon. Care Teams Ell Tutor Relationship Specialty Start Date End Date Vesta Reyes MD [address] [place] [address] [place] [address] PCP - General 08/16/07 documented as of this encounter
--- OUTSIDE RECORDS SUMMARY | 2023-08-30 05:27 | External Medical Summary | Summary of Care ---
Author Name Unknown Organization [facility] Address [address] [place] [address] Phone [phone] Care Team Providers Care Medical Delivery Driver Name Role Phone Vesta Reyes MD Primary Care Provider + Reason for Visit * Reason Onset Date Comments Appointment 05/04/2023 Encounter Details Date Type Department Care Team (Late st Contact Info) Description 05/04/2023 Telephone Otolaryngology/Head & Neck/Facial Plastic Surgery [address] [place], [place] [id number] Services, Scheduling [address] [place] [address] Appointment Allergies Active Allergy Reactions Criticality Noted Date Comments Pollen 11/05/2021 Hasn't been properly diagnosed, but has allergy symptoms worse in summer documented as of this encounter (statuses as of 05/05/2023) Medications Medication Sig Dispensed Refills Start Date [...] (aspirin enteric coated)Indications:Co ronary artery disease involving coquille coronary artery of coquille heart without angina pectoris Take 1 tablet by mouth once daily 90 Tablet 3 05/26/2022 Active Pantoprazole Sodium 40 MG Oral Tablet Delayed Release (Protonix)Indications :Gastritis, presence of bleeding unspecified, unspecified chronicity, unspecified gastritis type Take 1 tablet by mouth once daily 90 Tablet 3 05/26/2022 Active Rosuvastatin Calcium 40 MG Oral Tablet (Crestor)Indications: Coronary artery disease involving coquille coronary artery of coquille heart without angina pectoris,S/P drug eluting coronary [...] AT BEDTIME 30 Tablet 5 03/23/2023 Active documented as of this encounter (statuses as of 05/05/2023) Active Problems Problem Noted Date Diagnosed Date Prediabetes 11/10/2020 Overview: Per Prediabetes protocol HTN, goal below 140/90 07/06/2019 Dyslipidemia, goal LDL below 70 07/06/2019 Coronary artery disease invo lving coquille coronary artery of coquille heart without angina pectoris 05/29/2017 S/P drug eluting coronary stent placement 2017 History of non-ST elevation myocardial infarctio n (NSTEMI) 05/29/2017 Senile osteoporosis 03/10/2017 Gastroesophageal reflux disease without esophagi tis 03/10/2017 documented as of this encounter (statuses as of 05/05/2023) Resolved Problems Problem Noted Date Diagnosed Date [...] as of this encounter (statuses as of 05/05/2023) Immunizations Name Administration Dates Next Due COVID-19 mRNA, LNP-s, No Pre serve, 2-Dose Series ([place]) 04/16/2021,07/14/2020,06/09/2020 Covid-19, Mrna, Lnp-s, Pf, B ivalent, [...] encounter Miscellaneous Notes * Telephone Encounter - Desiree Perla LPN - 05/05/2023 11:53 AM EST Called and offered 05/17, accepted * Telephone Encounter - Jaelyn Harris OSA - 05/04/2023 10:39 AM EST Pt has a referral with Dr. Berger for Hyperparathyroidism The soonest appointment is in June. Please advise documented in this encounter Plan of Treatment Upcoming Encounters Date Type Department Care Team (Late st Contact Info) Description 05/17/2023 11:30 AM EST Office Visit Otolaryngology/Head & Neck/Facial Plastic Surgery [address] [facility] [place] [address] [facility]al[facility] [address] [facility] [address] 07/06/2023 8:30 AM EST Office Visit Cardiology, [facility] [address] [place] [address] Arnulfo Arias PA-C [address] [address] 07/14/2023 8:20 AM EDT Telemedicine Endocrinology, [place] [address] [place] [address] Jose Mendoza MD [address] [place], [place] [id number] 08/25/2023 9:20 AM EDT Office Visit General Internal Medicine [facility] [address] [facility] [address] Vesta Reyes MD [address] [facility] [place] [address] Health Maintenance Due Date Last Done Comments [...] this encounter Medical Devices Implanted Type Area Dip Stand Loader Device Identifier Shelf Expiration Date Model / Serial / Lot Lens Intraoc 21.5 - [id number] - [id number] Implanted:Qty: 1 on 06/01/2016 by Scott Mckee MD at OR [facility] Right: Eye [employer] 12/30/2020 [id number] / [id number] / [id number] Lens Intraoc 20.0 - [id number] - [id number] Implanted:Qty: 1 on 06/15/2016 by Scott Mckee MD at OR [facility] Left: Eye [employer] 01/29/2021 [id number] / [id number] / [id number] Trim-It Drill Pin, 2 X100 Mm Implanted:Qty: 1 on 07/01/2017 by Renea Landrum DPM at OR [facility] Left: Foot [employer] 12/30/2018 [id number] / / [id number] documented as of this encounter Advance Directives [...] and were consensually agreed upon. Care Teams Medical Delivery Driver Relationship Specialty Start Date End Date Vesta Reyes MD [address] [place] [address] [place] [id number] PCP - General 08/16/07 documented as of this encounter
--- OUTSIDE RECORDS SUMMARY | 2023-08-30 05:27 | External Medical Summary | Summary of Care ---
Author Name Unknown Organization [facility] Address [address] [place] [address] Phone [phone] Care Team Providers Care Medical Orderly Name Role Phone Vesta Reyes MD Primary Care Provider + Reason for Visit * Precert (Within 10 days (routine)) - Pending Review Specialty Diagnoses / Procedures Referred By Contac t Referred To Contact Radiology Diagnoses Primary hyperparathyroidism (HCC) Procedures NM PARATHYROID SCAN (SPECT & CT) Jose Mendoza MD [address] [place] [address] Referral ID Status Reason Start Date Expiration Date V isits Requested Visits Authorized [id number] Pending Review 04/01/2023 [id number] Encounter Details Date Type Department Care Team (Latest Contact Info) Description 04/15/2023 2:36 PM EST - 04/15/2023 11:59 PM EST Hospital Encounter Radiology, [place] [address] [place] [id number] Arrived Discharge Disposition: Home - Self Care [...] (aspirin enteric coated)Indications: Coronary artery disease involving hamilton coronary artery of hamilton heart without angina pectoris Take 1 tablet by mouth once daily 90 Tablet 3 05/26/2022 Active Pantoprazole Sodium 40 MG Oral Tablet Delayed Release (Protonix)Indicatio ns:Gastritis, presence of bleeding unspecified, unspecified chronicity, unspecified gastritis type Take 1 tablet by mouth once daily 90 Tablet 3 05/26/2022 Active Rosuvastatin Calcium 40 MG Oral Tablet (Crestor)Indication s:Coronary artery disease involving hamilton coronary artery of hamilton heart without angina pectoris,S/P drug eluting coronary [...] 70 07/06/2019 Coronary artery disease invo lving hamilton coronary artery of hamilton heart without angina pectoris 05/29/2017 S/P drug [...] mRNA, LNP-s, No Pre serve, 2-Dose Series ([employer]) 04/16/2021,07/14/2020,06/09/2020 Covid-19, Mrna, Lnp-s, Pf, B ivalent, 30 Mcg, IM, 12 yrs and above ([employer]) 02/09/2022 Pneumococcal Conjugate Vacc, 13 Valent (Prevnar) [...] 05/03/2023 2:00 PM EST Office Visit Otolaryngology [facility] [address] [address] Nyla Hudson MD [address] [address] 07/06/2023 8:30 AM EST Office Visit Cardiology, [facility] [address] [address] Arnulfo Arias PA-C [address] [address] 07/14/2023 8:20 AM EDT Telemedicine Endocrinology, [place] [address] [place] [address] Jose Mendoza MD [address] [place] [address] 08/25/2023 9:20 AM EDT Office Visit General Internal Medicine [facility] [place] [address] [facility] [place] [address] Vesta Reyes MD [address] [facility] [place] [address] Health Maintenance Due Date Last Done Comments [...] this encounter Medical Devices Implanted Type Area Funeral Arranger Device Identifier Shelf Expiration Date Model / Serial / Lot Lens Intraoc 21.5 - [id number] - [id number] Implanted:Qty: 1 on 06/01/2016 by Scott Mckee MD at OR [facility] Right: Eye [employer] 12/30/2020 [id number] / [id number] / [id number] Lens Intraoc 20.0 - [id number] - [id number] Implanted:Qty: 1 on 06/15/2016 by Scott Mckee MD at OR [facility] Left: Eye [employer] 01/29/2021 [id number] / [id number] / [id number] Trim-It Drill Pin, 2 X100 Mm Implanted:Qty: 1 on 07/01/2017 by Renea Landrum DPM at OR [facility] Left: Foot [employer] 12/30/2018 [id number] / / [id number] documented as of this encounter Procedures Procedure Name Priority Date/Time Associated Diagnosis Comments NM PARATHYROID SCAN (SPECT & CT) Routine 04/15/2023 4:16 PM EST Primary hyperparathyroidism (HCC) documented in this encounter Results * NM PARATHYROID SCAN (SPECT & CT) (04/15/2023 4:16 PM EST) Anatomical Region Laterality Modality Neck, Thyroid Nuclear Medicine 04/15/2023 4:2 2 PM EST Impressions 04/15/2023 4:25 PM EST [...] and fused with the SPECT images on [employer] workstation. FINDINGS PLANAR IMAGING: Normal thyroid and [...] the resident/fellow physician's interpretation. Jose Mendoza MD RAD NUCLEAR MED documented in this encounter Advance Directives Latest [...] were consensually agreed upon. Care Teams Medical Orderly Relationship Specialty Start Date End Date Vesta Reyes MD [address] [place] [address], [place] [address] PCP - General 08/16/07 documented as of this encounter
--- OUTSIDE RECORDS SUMMARY | 2023-08-30 05:27 | External Medical Summary | Summary of Care ---
Author Name Unknown Organization [facility] Address [address] [place] [address] Phone [phone] Care Team Providers Care Rubber Goods Supervisor Name Role Phone Vesta Reyes MD Primary Care Provider + Reason for Referral * Evaluate & Treat - Unlimited Visits (Within 10 days (routine)) - Authorized Specialty Diagnoses / Procedures Referred By Brett whitlock Referred To Contact Otolaryngology Diagnoses Hyperparathyroidism (HCC) Nyla Hudson MD [address] [place] [id number] Shalini Berger MD [address] [place] [address] Referral ID Status Reason Start Date Expiration Date Visits Requested Visits Authorized [id number] Authorized Specialty Services Required 05/03/[phone] Question Answer Referral Priority Within 10 days (routine) Where should this appointment be scheduled? [facility] Reason for Referral Thyroid/Parathyroid/Oral Lesions/Head/Neck/Cancer Conditions Specific Condition: Parathyroid Comments No definitive adenoma seen on SPECT or 4D CT Reason for Visit * Reason Comments NEW PATIENT Hyperparathyroidism * Evaluate & Treat - Unlimited Visits (Within 30 days (routine)) - Authorized Specialty Diagnoses / Procedures Referred By Contchauncey t Referred To Contact Otolaryngology Diagnoses Primary hyperparathyroidism (HCC) Jose Mendoza MD [address] [place] [address] Referral ID Status Reason Start Date Expiration Date Visits Requested Visits Authorized [id number] Authorized Specialty Services Required 04/01/[phone] Encounter Details Date Type Department Care Team (Latest Contact Info) Description 05/03/2023 2:00 PM EST Office Visit Otolaryngology [facility] [address] [place] [address] Nyla Hudson MD [address] [place] [address] Hyperparathyroidism ([facility])* Allergies Active Allergy Reactions Criticality Noted Date Comments Pollen 11/05/2021 Hasn't been properly diagnosed, but has allergy symptoms worse in summer documented as of this encounter (statuses as of 05/03/2023) Medications Medication Sig Dispensed Refills Start Date [...] (aspirin enteric coated)Indications:Co ronary artery disease involving kotlik coronary artery of kotlik heart without angina pectoris Take 1 tablet by mouth once daily 90 Tablet 3 05/26/2022 Active Pantoprazole Sodium 40 MG Oral Tablet Delayed Release (Protonix)Indications :Gastritis, presence of bleeding unspecified, unspecified chronicity, unspecified gastritis type Take 1 tablet by mouth once daily 90 Tablet 3 05/26/2022 Active Rosuvastatin Calcium 40 MG Oral Tablet (Crestor)Indications: Coronary artery disease involving kotlik coronary artery of kotlik heart without angina pectoris,S/P drug eluting coronary [...] as of this encounter (statuses as of 05/03/2023) Active Problems Problem Noted Date Diagnosed Date Prediabetes 11/10/2020 Overview: Per Prediabetes protocol HTN, goal below 140/90 07/06/2019 Dyslipidemia, goal LDL below 70 07/06/2019 Coronary artery disease invo lving kotlik coronary artery of kotlik heart without angina pectoris 05/29/2017 S/P drug eluting coronary stent placement 2017 History of non-ST elevation myocardial infarctio n (NSTEMI) 05/29/2017 Senile osteoporosis 03/10/2017 Gastroesophageal reflux disease without esophagi tis 03/10/2017 documented as of this encounter (statuses as of 05/03/2023) Resolved Problems Problem Noted Date Diagnosed Date [...] as of this encounter (statuses as of 05/03/2023) Immunizations Name Administration Dates Next Due COVID-19 mRNA, LNP-s, No Pre serve, 2-Dose Series (Ombu) 04/16/2021,07/14/2020,06/09/2020 Covid-19, Mrna, Lnp-s, Pf, B ivalent, [...] Pressure - - Pulse - - Temperature 37 C (98.6 F) 05/03/2023 1:55 PM EST Respiratory Rate - - Oxygen Saturation - - Inhaled Oxygen Concentration - - Weight 67.9 kg (149 lb 9.6 oz) 05/03/2023 1:55 P M EST Height 152.4 cm (5') 05/03/2023 1:55 PM EST Body Mass Index 29.22 05/03/2023 1:55 PM EST documented in this encounter Progress Notes * Nyla Hduson MD - 05/03/2023 2:00 PM EST Images from the original note were not included. 05/03/2023 HISTORY OF PRESENT ILLNESS This 82 year old year old female is seen today for the initial complaint of thyroid nodule. The provider requesting consultation is Jose Mendoza MD. Nursing Notes: Les Moore, [facility] 05/03/23 1357 Signed Chief Complaint Patient presents with NEW PATIENT Hyperparathyroidism Donita Brandon is a 82 year old female who presents today with primary hyperparathyroidism. She was referred by her sack filler. She had a CT of her neck on 04/15/2023 and a nuclear medicine CTof her neck on 03/31/2023. She also had a CT and an ultrasound in 2020. No history of kidney stones or pathological fractures, but does have osteoporosis. No dyspnea or difficulty swallowing. Problem List 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 Gastroesophageal reflux disease without esophagitis K21.9 Coronary artery disease involving kotlik coronary artery of kotlik heart without angina pectoris I25.10 S/P drug eluting coronary stent placement Z95.5 History of non-ST elevation myocardial infarction (NSTEMI) I25.2 HTN, goal below 140/90 I10 Dyslipidemia, goal LDL below 70 E78.5 Prediabetes R73.03 Past Medical History: Diagnosis Date CAD (coronary artery disease) Diaphragmatic hernia Esophageal reflux 03/16/07 Kidney stone MD (myocardial infarction) ([facility]) 01/2017 Other osteoporosis 01/31/2002 Other osteoporosis without current pathological fracture 01/31/2002 ICD-10 update of inactive term Past Surgical History: Procedure Laterality Date BUNION CORRECTED W/SESAMOIDECTOMY W/ RESECT PROX PHALANX Left 07/01/2017 CORRECTION HALLUX VALGUS, RESECTION PROXIMAL PHALANX BASE performed by Renea Landrum DPM at OR [facility] BUNION CORRECTED WITH PHALANX OSTEOTOMY Left 07/01/2017 CORRECTION HALLUX VALGUS, PROXIMAL PHALANX OSTEOTOMY performed by Renea Landrum DPM at OR [facility] DELIVERY 08/03/1984 x 2 DELIVERY 11/03/1982 emergency c section STILLBORN COLONOSCOPY 01/2004 polpyp, repeat in 3 years COLONOSCOPY W/ LESION REMOVAL, SNARE 11/18/2006 repeat 3yrs adenomatous tissue COLONOSCOPY W/ LESION REMOVAL, SNARE 11/24/2009 path shows adenomatous tissue repeat in 3 years- diverticulosis entire colon COLONOSCOPY, DIAGNOSTIC (RECTUM) 12/11/2012 COLONOSCOPY FLEXIBLE PROXIMAL DIAGNOSTIC performed by Sarmad Vasquez MD at ENDOSCOPY [facility], hyperplastic polyps repeat colonoscopy in 5 years COLONOSCOPY, DIAGNOSTIC (RECTUM) 08/07/2013 COLONOSCOPY FLEXIBLE PROXIMAL DIAGNOSTIC performed by Nargis Collier DO at ENDOSCOPY [facility] COLONOSCOPY, DIAGNOSTIC (RECTUM) 03/15/2018 normal bx, diverticulosis, fair prep, repeat 3 yrs/COLONOSCOPY FLEXIBLE PROXIMAL DIAGNOSTIC performed by Nargis Collier DO at ENDOSCOPY [facility] COLONOSCOPY, DIAGNOSTIC (RECTUM) 11/11/2021 benign adenomatous & serrated adenomatous polyp / COLONOSCOPY FLEXIBLE PROXIMAL DIAGNOSTIC performed by Alejandra Pereira MD at ENDOSCOPY [facility] CYSTOSCOPY 02/02/2005 [facility] EGD, FLEXIBLE, DIAGNOSTIC 08/07/2013 ESOPHAGOGASTRODUODENOSCOPY (EGD), FLEXIBLE, TRANSORAL, DIAGNOSTIC performed by Nargis Collier DO at ENDOSCOPY [facility] EGD, FLEXIBLE, DIAGNOSTIC 09/30/2017 mild reactive inflammation, hiatal hernia, esophageal erosions/[facility] EGD, FLEXIBLE, W/BIOPSY 03/16/2007 hiatus hernia gerd EGD, FLEXIBLE, W/BIOPSY 02/07/2009 biopsies from esophagus--no inflammation--very mild irritation of the stomach without evidence of H.Pylori INFORMATION 03/02/2017 cardiac stent x1 LAPAROSCOPY; CHOLECYSTECTOMY 08/29/2009 [facility] - Dr. Huang - cholecystectomy lap - [...] performed by Scott Mckee MD at OR [facility] REMOVE CATARACT, INSERT LENS PROSTH Left 06/15/2016 leftEXTRACAPSULAR CATARACT REMOVAL WITH INTRAOCULAR LENS performed by Scott Mckee MD atOR [facility] REPAIR OF HAMMERTOE, ONE TOE Left 07/01/2017 CORRECTION HAMMERTOE performed by Renea Landrum DPM at OR [facility] TOTAL HYSTERECTOMY 11/1984 NOEMI (Total Abdominal Hysterectomy) Medications Current Outpatient Medications Medication Sig Dispense Refill VITAMIN D 1000 UNIT PO CAPS 1 capsule daily B-12 1000 MCG PO CAPS one daily Ascorbic Acid 500 MG CAPS Take 1 Cap by mouth 2 times a day. ferrous sulfate (FEOSOL) 325 (65 FE) MG Tablet Take 1 Tablet by mouth daily with breakfast. Fluticasone Propionate 50 MCG/ACT Nasal Suspension (Flonase) INSTILL 2 SPRAY(S) IN EACH NOSTRIL ONCE DAILY 48 g 1 Nitroglycerin 0.4 MG Sublingual Tablet Sublingual (Nitrostat) Place 1 Tablet under the tongue every5 minutes as needed for Pain, Chest. 25 Tablet 5 EQ Aspirin Adult Low Dose 81 MG Oral Tablet Delayed Release (aspirin enteric coated) Take 1 tablet by mouth once daily 90 Tablet 3 Pantoprazole Sodium 40 MG Oral Tablet Delayed Release (Protonix) Take 1 tablet by mouth once daily 90 Tablet 3 Rosuvastatin Calcium 40 MG Oral Tablet (Crestor) Take 1 tablet by mouth once daily 90 Tablet 3 Loratadine 10 MG Oral Capsule Take 1 Capsule by mouth as needed for Rhinitis. Metoprolol Succinate ER 25 MG Oral Tablet Extended Release 24 Hour (toPROL XL) Take 1 tablet by mouth once daily 90 Tablet 2 Famotidine 20 MG Oral Tablet (Pepcid) TAKE 1 TABLET BY MOUTH AT BEDTIME 30 Tablet 5 No current facility-administered medications for this visit. Allergies Review of patient's allergies indicates: Allergen Reactions Environmental [Pollen] Hasn't been properly diagnosed, but has allergy symptoms worse in summer Family History Family History Problem Relation Age of Onset Cancer Sister 53 breast, CLL, age 62 Heart Disorder Mother angioplasty Heart Disorder Father Hypertension Mother Mental Disorder Mother depression/anxiety Neurological Disorder Father Alzheimer's Heart Disorder Brother Cancer Father 73 prostate Arthritis Mother Stroke None Thyroid Disorder Mother Social History Social History Tobacco Use Smoking status: Never Smokeless tobacco: Never Substance Use Topics Alcohol use: Yes Comment: occasionally Vaping/E-Cigarette Use Vaping/E-Cigarette Use Never User Passive Exposure No Counseling Given? No Vaping/E-Cigarette Substances Nicotine No Other No Flavoring No THC No Cannabidiol (CBD) No Vaping/E-Cigarette Devices Disposable No Pre-filled or Refillable Cartridge No Refillable Tank No Pre-filled Pod No Occupational History Review of Systems Negative for constitutional, eyes, cardiac, pulmonary, hepatic, renal, digestive, hematologic, epileptic, syncopal, musculo-skeletal, mental health, integumentary, hypertensive, lipid, arthritic, diabetic, thyroid or neurologic disorders (except as listed in the PMH and Problem List). Physical Examination: Temp 37 C (98.6 F) (Tympanic) | Ht 1.524 m (5') | Wt 67.9 kg (149 lb 9.6 oz) | BMI 29.22 kg/m| BSA 1.7 m PHYSICAL EXAM General: This is a healthy appearing female who appears her stated age. The patient is alert and appropriately verbally conversant without hoarseness. Face: The face was inspected and no cutaneous masses or lesions were visualized. There was no erythema or edema noted. Facial movement was symmetric without weakness. No skin lesions were detected. There was no sinus tenderness elicited. The parotid and submandibular glands were normal to palpation. Eyes: Extra-ocular muscle function was intact. No nystagmus was observed. Pupils were equal. Cranial Nerves: Cranial nerves II, III, IV, and were noted to be intact via extra-ocular muscle movement testing. Cranial nerve VII noted to be intact and symmetric by facial movement. Cranial nerve VIII was tested with tuning fork examination and revealed symmetric hearing. Cranial nerves IX and X noted to be intact by gag reflex and palatal movement. Cranial nerve XII noted to be intact by active and symmetric tongue movement. Nose: Examination of the nose prior to decongestion revealed no masses, polyps, mucopus, or other lesion. The nasal septum was non-obstructing. The turbinates were without abnormality. No septal perforation. Oral Cavity: Examination of the oral cavity revealed no mass lesions nor infection. The palate was noted to be intact without evidence of clefting. The tongue exhibited normal mobility. Mucosa was moist without lesion. The lips were free of lesion. Gums were free of inflammation. Dentition: Unremarkable Oropharynx: The oral pharynx was free of mass lesion or mucosal abnormality. The palate was noted to be without lesion. The uvula was normal appearing. The tonsils were unremarkable. Hypopharynx: flexible fiberoptic examination of the hypopharynx revealed normal mucosa. The tongue base was normal. There was no abnormal lymphoid tissue. There were no mass lesions. Larynx: flexible fiberoptic examination of the larynx revealed no mass lesions. Vocal cord mobilitywas normal without paralysis or paresis. No vocal cord masses were visualized. The pyriform sinuseswere free of mass lesion and significant pooling. The mucosa was normal appearing. Ears: Examination of the ears revealed that the auricles were normally formed with no lesions. The external auditory canals were cleaned of any obstructing cerumen. The tympanic membranes were intact. There are no significant retraction pockets. There is no inflammation visualized. No effusions areseen. Neck: Visualization and palpation of the neck revealed no mass lesions, no thyromegaly or thyroid masses. No skin lesions or inflammatory processes were detected. The cervical musculature was normal to palpation. Lymphatics (cervical): There were no palpable lymph nodes in the posterior triangle, submandibular triangle, jugulodigastric region, or central neck. Lungs: Breathing quietly. No use of accessory muscles. Heart: Regular rate. No JVD. Plan: Hyperparathyroidism (HCC) (Primary) - OTOLARYNGOLOGY REFERRAL OP No convincing adenoma was seen on the SPECT CT or the 40 CT scan so I will refer the patient to in 4 possible 4 gland exploration. Last note from endocrinology: Please update pt with following. Parathyroid scan reviewed. No discrete parathyroid adenoma noted. 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 Adviseto keep fu with ENT on 05/03/2023 to discuss surgical options. If surgical option is not pursued, will restart treatment for osteoporosis. PTH 105 Calcium 10.5 NM PARATHYROID SCAN (SPECT & CT) Order: [id number] - Reflex for Order [id number] Status: Final result Visible to patient: No (inaccessible in MyChart) Next appt: Today at 02:00 PM in *Ent* (Nyla Hudson MD) Dx: Primary hyperparathyroidism (HCC) 1 Result Note 1 Patient Communication 1 Follow-up Encounter Details Reading Physician Reading Date Result Priority Harlan Bailey, DO [phone] 04/15/2023 Srini Wilder, DO [phone] 04/15/2023 Narrative & Impression EXAM NM PARATHYROID SCAN (SPECT - 04/15/2023 4:16 pm HISTORY Primary hyperparathyroidism. ? Multigland disease on CT neck. Requesting sestamibi scan prior to parathyroid surgery for localization COMPARISON CT neck dated 03/31/2023 TECHNIQUE Following the intravenous administration of 25.7 mCi of Tc-99m sestamibi, planar and SPECT imaging was performed immediately post injection. Delayed planar and SPECT imaging was performed after threehours. Low-dose CT of the neck was performed [...] hiatal hernia. LAD stent. Degenerative osseous changes. IMPRESSION IMPRESSION No scintigraphic evidence of parathyroid adenoma. XAM CT NECK W WO CONTRAST-03/31/2023 8:00 am HISTORY Requesting 4D CT Neck for parathyorid localization prior to parathyorid surgery TECHNIQUE Noncontrast CT images were acquired through the neck. CT images within acquired through the neck following IV contrast administration in the arterial and venous phases and coronal and sagittal reformats were generated. COMPARISON January 19, 2021 and ultrasound January 19, 2021. FINDINGS Adjacent to the lateral right esophagus posterior to the right lobe of the thyroid gland seen on image 145 of series 19 there is a 6 mm focus of avidly enhancing soft tissue which is hypodense to thethyroid parenchyma on the noncontrast imaging and may demonstrate faint washout on the venous phase. There is a focus of additional tissue along the left lateral aspect of the esophagus at the same level which has similar density characteristics measuring approximately 5 mm. Anterior to the cricoidcartilage on the left there is another small focus of tissue with density characteristics which aresimilar to the thyroid gland seen on image 126 of series 19 measuring 4 mm in size. The thyroid parenchyma is homogeneous. No pathologically enlarged lymph nodes are evident within the neck. The laryngeal structures appear unremarkable. The lung apices are clear. The paranasal sinuses and mastoid air cells are clear aside from minor soft tissue thickening at the base of the right maxillary sinus which may be dental in origin with prominent lucency about the roots of the most posterior remaining right maxillary molar tooth. Examination of the bones demonstrates advanced disc degeneration at C3-4, C4-5, C5-6, and C6-7. No lytic or blastic bone lesions are present. There is multilevel foraminal stenosis from uncovertebral hypertrophy and spurring. IMPRESSION IMPRESSION 1. 2 soft tissue densities adjacent [...] in the mid and lower cervical spine. Patient has seen Endocrinology. Based on their recommendations surgery is warranted. Nyla C. Modzeski, MD [facility] [address] Otolaryngology - Head and Neck Surgery [place], [place] 05/03/2023 10:10 AM documented in this encounter Nursing Notes * Les Moore CMA - 05/03/2023 1:55 PM EST Chief Complaint Patient presents with NEW PATIENT Hyperparathyroidism Donita Brandon is a 82 year old female who presents today with primary hyperparathyroidism. She was referred by her sack filler. She had a CT of her neck on 04/15/2023 and a nuclear medicine CTof her neck on 03/31/2023. She also had a CT and an ultrasound in 2020. documented in this encounter Plan of Treatment Upcoming Encounters Date Type Department Care Team (Late st Contact Info) Description 07/06/2023 8:30 AM EST Office Visit Cardiology, [facility] [address] [facility] [place] [address] Arnulfo [facility]as PA[facility]C [facility] [address] 07/14/2023 8:20 AM EDT Telemedicine Endocrinology, [place] [address] [place] [address] Jose Mendoza MD [address] [place] [address] 08/25/2023 9:20 AM EDT Office Visit General Internal Medicine [address] [facility] [place] [address] [place], [place] [address] Vesta Reyes MD [address] [facility] [place] [address] Scheduled Referrals Name Type Priority Associated Diagnoses [...] this encounter Medical Devices Implanted Type Area Candle Extrusion Machine Operator Device Identifier Shelf Expiration Date Model / Serial / Lot Lens Intraoc 21.5 - [id number] - [id number] Implanted:Qty: 1 on 06/01/2016 by Scott Mckee MD at OR [facility] Right: Eye [employer] 12/30/2020 [id number] / [id number] / [id number] Lens Intraoc 20.0 - [id number] - [id number] Implanted:Qty: 1 on 06/15/2016 by Scott Mckee MD at OR [facility] Left: Eye [employer] 01/29/2021 [id number] / [id number] / [id number] Trim-It Drill Pin, 2 X100 Mm Implanted:Qty: 1 on 07/01/2017 by Renea Landrum DPM at OR [facility] Left: Foot [employer] 12/30/2018 [id number] / / [id number] documented as of this encounter Visit Diagnoses [...] and were consensually agreed upon. Care Teams Rubber Goods Supervisor Relationship Specialty Start Date End Date Vesta Reyes MD [address] [place] [address] PCP - General 08/16/07 documented as of this encounter"
--- OUTSIDE RECORDS SUMMARY | 2023-08-30 05:27 | External Medical Summary | Summary of Care ---
Author Name Unknown Organization [facility] Address [address] [place] [address] Phone [phone] Care Team Providers Care Criminology Teacher Name Role Phone Vesta Reyes MD Primary Care Provider + Reason for Visit * Reason Comments Cold Symptoms Encounter Details Date Type Department Care Team (Latest Contact Info) Description 04/19/2023 1:30 PM [facility] Convenient Care Visit [facility] [address] [place] [address] Brittney Hodgson PA-C [address] [facility] [place] [id number] Acute non-recurrent maxillary sinusitis*; Elevated blood pressure, situational Allergies Active Allergy Reactions Criticality Noted Date Comments Pollen 11/05/2021 Hasn't been properly diagnosed, but has allergy symptoms worse in summer documented as of this encounter (statuses as of 04/19/2023) Medications Medication Sig Dispensed Refills Start Date [...] (aspirin enteric coated)Indications :Coronary artery disease involving [place] coronary artery of [place] heart without angina pectoris Take 1 tablet by mouth once daily 90 Tablet 3 05/26/2022 Active Pantoprazole Sodium 40 MG Oral Tablet Delayed Release (Protonix)Indicati ons:Gastritis, presence of bleeding unspecified, unspecified chronicity, unspecified gastritis type Take 1 tablet by mouth once daily 90 Tablet 3 05/26/2022 Active Rosuvastatin Calcium 40 MG Oral Tablet (Crestor)Indicatio ns:Coronary artery disease involving [place] coronary artery of [place] heart without angina pectoris,S/P drug eluting coronary [...] as of this encounter (statuses as of 04/19/2023) Active Problems Problem Noted Date Diagnosed Date Prediabetes 11/10/2020 Overview: Per Prediabetes protocol HTN, goal below 140/90 07/06/2019 Dyslipidemia, goal LDL below 70 07/06/2019 Coronary artery disease invo lving [place] coronary artery of [place] heart without angina pectoris 05/29/2017 S/P drug eluting coronary stent placement 2017 History of non-ST elevation myocardial infarctio n (NSTEMI) 05/29/2017 Senile osteoporosis 03/10/2017 Gastroesophageal reflux disease without esophagi tis 03/10/2017 documented as of this encounter (statuses as of 04/19/2023) Resolved Problems Problem Noted Date Diagnosed Date [...] as of this encounter (statuses as of 04/19/2023) Immunizations Name Administration Dates Next Due COVID-19 mRNA, LNP-s, No Pre serve, 2-Dose Series ([employer]) 04/16/2021,07/14/2020,06/09/2020 Covid-19, Mrna, Lnp-s, Pf, B ivalent, [...] Date Smoking Tobacco: Never Smokeless Tobacco: Never Tobacco Cessation:Counseling Given: Not Answered Alcohol Use Standard Drinks/Week Comments Yes 0 [...] Sign Reading Time Taken Comments Blood Pressure 160/90 04/19/2023 2:34 PM EST Pulse 73 04/19/2023 2:34 PM EST Temperature 37.1 C (98.8 F) 04/19/2023 2:34 PM ES T Respiratory Rate 18 04/19/2023 2:34 PM EST Oxygen Saturation 96% 04/19/2023 2:34 PM EST Inhaled Oxygen Concentration - - Weight 67 kg (147 lb 9.6 oz) 04/19/2023 2:34 PM EST Height - - Body Mass Index 28.83 03/17/2023 8:37 AM EST documented in this encounter Progress Notes * Brittney Hodgson PA-C - 04/19/2023 2:43 PM EST Subjective: Nursing Notes: Silvano Serna LPN 04/19/23 1437 Signed Donita Brandon is a 82 year old female who presents to walk-in clinic today complaining of Chief Complaint Patient presents with Cold Symptoms How lon04-12-23 Tried: Tylenol Pt accompanied by: Self Sx are ongoing x 7 d: mucous bright yellow and almost green, sinus pain ++ head pain Has lost sense of taste somewhat Had sore throat and BA the other day but this has improved no sick contacts at home. Sig med hx/risk factors: CAD, had flu shot this year. Review of Systems Constitutional: Negative for activity change, appetite change, fatigue and fever. HENT: Positive for congestion, hearing loss (chronic), postnasal drip, rhinorrhea, sinus pain and sore throat (scratchy). Negative for ear pain, sinus pressure and voice change. Eyes: Negative for discharge and redness. Respiratory: Positive for cough (some but not bad). Negative for chest tightness, shortness of breath and wheezing. Cardiovascular: Negative for chest pain. Gastrointestinal: Negative for abdominal pain, diarrhea, nausea and vomiting. Musculoskeletal: Negative for arthralgias, neck pain and neck stiffness. Allergic/Immunologic: Negative for environmental allergies. Neurological: Positive for headaches. Negative for dizziness. PMH: 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 Gastroesophageal reflux disease without esophagitis K21.9 Coronary artery disease involving [place] coronary artery of [place] heart without angina pectoris I25.10 S/P drug eluting coronary stent placement Z95.5 History of non-ST elevation myocardial infarction (NSTEMI) I25.2 HTN, goal below 140/90 I10 Dyslipidemia, goal LDL below 70 E78.5 Prediabetes R73.03 Current Outpatient Medications Medication Sig Dispense Refill [...] 2 SPRAY(S) IN EACH NOSTRIL ONCE DAILY (Patient taking differently: as needed for Rhinitis.) 48 g 1 Nitroglycerin 0.4 MG Sublingual [...] Capsule by mouth as needed for Rhinitis. Famotidine 20 MG Oral Tablet (Pepcid) TAKE 1 TABLET BY MOUTH AT BEDTIME 30 Tablet 5 Amoxicillin-Pot Clavulanate 500-125 MG Oral Tablet (Augmentin) Take 1 Tablet by mouth in the morning and 1 Tablet before bedtime. Do all this for 10 days. 20 Tablet 0 Metoprolol Succinate ER 25 MG Oral Tablet Extended Release 24 Hour (toPROL XL) Take 1 tablet by mouth once daily 90 Tablet 2 No current facility-administered medications for this visit. Past Medical History: Diagnosis Date CAD (coronary artery disease) Diaphragmatic hernia Esophageal reflux 03/16/07 Kidney stone IN (myocardial infarction) ([facility]) 01/2017 Other osteoporosis 01/31/2002 Other osteoporosis without current pathological fracture 01/31/2002 ICD-10 update of inactive term Past Surgical History: Procedure Laterality Date BUNION CORRECTED W/SESAMOIDECTOMY W/ RESECT PROX PHALANX Left 07/01/2017 CORRECTION HALLUX VALGUS, RESECTION PROXIMAL PHALANX BASE performed by Renea Landrum DPM at OR [facility] BUNION CORRECTED WITH PHALANX OSTEOTOMY Left 07/01/2017 CORRECTION HALLUX VALGUS, PROXIMAL PHALANX OSTEOTOMY performed by Renea Landrum DPM at OR [facility] DELIVERY 08/03/1984 x 2 DELIVERY 11/03/1982 emergency c section STILLBORN COLONOSCOPY 01/2004 polpyp, repeat in 3 years COLONOSCOPY W/ LESION REMOVAL, SNARE 11/18/2006 repeat 3yrs adenomatous tissue COLONOSCOPY W/ LESION REMOVAL, SNARE 11/24/2009 path shows adenomatous tissue repeat in 3 years- diverticulosis entire colon COLONOSCOPY, DIAGNOSTIC (RECTUM) 12/11/2012 COLONOSCOPY FLEXIBLE PROXIMAL DIAGNOSTIC performed by Sarmad Vasquez MD at [facility], hyperplastic polyps repeat colonoscopy in 5 years COLONOSCOPY, DIAGNOSTIC (RECTUM) 08/07/2013 COLONOSCOPY FLEXIBLE PROXIMAL DIAGNOSTIC performed by Nargis Collier DO at ENDOSCOPY [facility] COLONOSCOPY, DIAGNOSTIC (RECTUM) 03/15/2018 normal bx, diverticulosis, fair prep, repeat 3 yrs/COLONOSCOPY FLEXIBLE PROXIMAL DIAGNOSTIC performed by Nargis Collier DO at ENDOSCOPY [facility] COLONOSCOPY, DIAGNOSTIC (RECTUM) 11/11/2021 benign adenomatous & serrated adenomatous polyp / COLONOSCOPY FLEXIBLE PROXIMAL DIAGNOSTIC performed by Alejandra Pereira MD at ENDOSCOPY [facility] CYSTOSCOPY 02/02/2005 ansong EGD, FLEXIBLE, DIAGNOSTIC 08/07/2013 ESOPHAGOGASTRODUODENOSCOPY (EGD), FLEXIBLE, TRANSORAL, DIAGNOSTIC performed by Nargis Collier DO at ENDOSCOPY [facility] EGD, FLEXIBLE, DIAGNOSTIC 09/30/2017 mild reactive inflammation, hiatal hernia, esophageal erosions/[facility] EGD, FLEXIBLE, W/BIOPSY 03/16/2007 hiatus hernia gerd EGD, FLEXIBLE, W/BIOPSY 02/07/2009 biopsies from esophagus--no inflammation--very mild irritation of the stomach without evidence of H.Pylori INFORMATION 03/02/2017 cardiac stent x1 LAPAROSCOPY; CHOLECYSTECTOMY 08/29/2009 [facility] - Dr. Huang - cholecystectomy [...] performed by Scott Mckee MD at OR [facility] REMOVE CATARACT, INSERT LENS PROSTH Left 06/15/2016 leftEXTRACAPSULAR CATARACT REMOVAL WITH INTRAOCULAR LENS performed by Scott Mckee MD atOR [facility] REPAIR OF HAMMERTOE, ONE TOE Left 07/01/2017 CORRECTION HAMMERTOE performed by Renea Landrum DPM at OR [facility] TOTAL HYSTERECTOMY 11/1984 NOEMI (Total Abdominal Hysterectomy) Review of patient's allergies indicates: Allergen Reactions Environmental [Pollen] Hasn't been properly diagnosed, but has allergy symptoms worse in summer Objective: BP 160/90 | Pulse 73 | Temp 37.1 C (98.8 F) (Tympanic) | Resp 18 | Wt 67 kg (147 lb 9.6 oz) | SpO2 96% | BMI 28.83 kg/m | BSA 1.68 m Physical Exam Constitutional: General: She is not in acute distress. Appearance: Normal appearance. She is normal weight. She is not ill-appearing. HENT: Head: Comments: Discomfort over cheeks w percussion Right Ear: Tympanic membrane, ear canal and external ear normal. Left Ear: Tympanic membrane, ear canal and external ear normal. Nose: Congestion and rhinorrhea present. Mouth/Throat: Mouth: Mucous membranes are moist. Pharynx: No oropharyngeal exudate or posterior oropharyngeal erythema. Eyes: General: Right eye: No discharge. Left eye: No discharge. Extraocular Movements: Extraocular movements intact. Conjunctiva/sclera: Conjunctivae normal. Cardiovascular: Rate and Rhythm: Normal rate and regular rhythm. Heart sounds: Normal heart sounds. Pulmonary: Effort: Pulmonary effort is normal. No respiratory distress. Breath sounds: Normal breath sounds. No wheezing or rhonchi. Musculoskeletal: Cervical back: Normal range of motion. Skin: Findings: No rash. Neurological: Mental Status: She is alert and oriented to person, place, and time. Psychiatric: Mood and Affect: Mood normal. Thought Content: Thought content normal. Judgment: Judgment normal. ASSESSMENT/PLAN: Acute non-recurrent maxillary sinusitis (Primary) - Amoxicillin-Pot Clavulanate 500-125 MG Oral Tablet (Augmentin); Take 1 Tablet by mouth in the morning and 1 Tablet before bedtime. Do all this for 10 days. Elevated blood pressure, situational Discussed home care and [facility] ed h/o provided on sinusitis Return instruction reviewed with pt in detail. Reasons to report to the ED were also reviewed. Voiced understanding Advised to follow up if no improvement in 3-5days. Britntey Hodgson PA-C documented in this encounter Nursing Notes * Silvano Serna LPN - 04/19/2023 2:36 PM EST Donita Brandon is a 82 year old female who presents to walk-in clinic today complaining of Chief Complaint Patient presents with Cold Symptoms How lon04-12-23 Tried: Tylenol Pt accompanied by: Self documented in this encounter Miscellaneous Notes * Pt Handout (on AVS) - Brittney Hodgson PA-C - 04/19/2023 3:03 PM EST Images from the original note were not included. [id number] Self-Care for Sinusitis Sinusitis can often be managed with self-care. Self-care can keep sinuses moist and make you feel more comfortable. Remember to follow your healthcare provider's instructions closely. This can make abig difference in getting your sinus problem under control. Drink fluids Drinking extra fluids helps thin your mucus. This lets it drain from your sinuses more easily. Havea glass of water every hour or 2. A humidifier helps in much the same way. Fluids can also offset the drying effects of certain medicines. If you use a humidifier, follow the product maker's instructions on how to use it. Clean it on a regular schedule. Drinking plenty of water can help sinuses drain. Use saltwater rinses Rinses help keep your sinuses and nose moist. Mix a teaspoon of salt in 8 ounces of fresh, warm water. Use a bulb syringe to gently squirt the water into your nose a few times a day. You can also buyready-made saline nasal sprays. Apply hot or cold packs Applying warm moist compresses over the nose and forehead may make you feel more comfortable. Breathing steam from a bowl of hot water or shower may also help. Some people also find ice packs effective for relieving pain. Medicines Your healthcare provider may prescribe medicines to help treat your sinusitis. If you have a bacterial infection, antibiotics are effective treatments. If you are prescribed antibiotics, take all pills on schedule until they are gone, even if you feel better. Decongestants help relieve swelling. Use decongestant sprays for short periods only under the direction of your healthcare provider. If youhave allergies, your healthcare provider may prescribe medicines to help relieve them. Last Reviewed Date: 06/30/202119995020-0652 [employer], [employer]. All rights reserved. This information is not intended as a substitute for professional medical care. Always follow your healthcare professional's instructions. documented in this encounter Plan of Treatment Upcoming Encounters Date Type Department Care Team (Late st Contact Info) Description 04/20/2023 4:40 PM EST Office Visit General Internal Medicine [facility] [address] [place] [address] Michelle Morales MD [address] [place] [address] [id number] 05/03/2023 2:00 PM EST Office Visit Otolaryngology [facility] [address] [facility] [place] [address] Nyla [facility] [address] 07/06/2023 8:30 AM EST Office Visit Cardiology, [facility] [address] [facility] [place] [address] Arnulfo Arias PA-C [address] [facility] [place] [address] 07/14/2023 8:20 AM EDT Telemedicine Endocrinology, [place] [address] [place] [address] Jose Mendoza MD [address] [place] [address] 08/25/2023 9:20 AM EDT Office Visit General Internal Medicine [facility] [address] [place] [address] [address] Vesta Reyes MD [address] [place] [address] [address] Health Maintenance Due Date Last Done Comments Zoster Vaccines (2 of 3) 09/16/2011 07/22/2011 COVID-19 Vaccine ( - 2022- season) 2022 02/09/2022, 04/16/2021, 07/14/2020, Additional history [...] this encounter Medical Devices Implanted Type Area Floorperson Device Identifier Shelf Expiration Date Model / Serial / Lot Lens Intraoc 21.5 - [id number] - [id number] Implanted:Qty: 1 on 06/01/2016 by Scott Mckee MD at OR [facility] Right: Eye [employer] 12/30/2020 [id number] / [id number] / [id number] Lens Intraoc 20.0 - [id number] - [id number] Implanted:Qty: 1 on 06/15/2016 by Scott Mckee MD at OR [facility] Left: Eye [employer]OM[employer] 01/29/2021 [id number] / [id number] / [id number] Trim-It Drill Pin, 2 X100 Mm Implanted:Qty: 1 on 07/01/2017 by Renea Landrum DPM at OR [facility] Left: Foot [employer] 12/30/2018 [id number] / / [id number] documented as of this encounter Visit Diagnoses Diagnosis Acute non-recurrent maxillary sinusitis- Primary Elevated blood pressure, situational Elevated blood pressure reading without diagnosis of hypertension documented in this encounter Advance Directives Latest [...] and were consensually agreed upon. Care Teams Criminology Teacher Relationship Specialty Start Date End Date Vesta Reyes MD [address] [facility] [place] [address] PCP - General 08/16/07 documented as of this encounter"
--- OUTSIDE RECORDS SUMMARY | 2023-08-30 05:28 | External Medical Summary | Summary of Care ---
Author Name Unknown Organization [facility] Address [address] [place] [address] Phone [phone] Care Team Providers Care Retail Service Specialist Name Role Phone Vesta Reyes MD Primary Care Provider + Reason for Visit * Reason Comments eRx-Medication Refill Encounter Details Date Type Department Care Team (Late st Contact Info) Description 03/22/2023 Refill General Internal Medicine [facility] [place] [address] [facility] [place] [address] Salena Morales MD 200 [place] [address] Hiatal hernia Allergies Active Allergy Reactions Criticality Noted Date Comments Pollen 11/05/2021 Hasn't been properly diagnosed, but has allergy symptoms worse in summer documented as of this encounter (statuses as of 03/23/2023) Medications Medication Sig Dispensed Refills Start Date [...] (aspirin enteric coated)Indication s:Coronary artery disease involving [place] coronary artery of [place] heart without angina pectoris Take 1 tablet by mouth once daily 90 Tablet 3 05/26/2022 Active Pantoprazole Sodium 40 MG Oral Tablet Delayed Release (Protonix)Indicat ions:Gastritis, presence of bleeding unspecified, unspecified chronicity, unspecified gastritis type Take 1 tablet by mouth once daily 90 Tablet 3 05/26/2022 Active Rosuvastatin Calcium 40 MG Oral Tablet (Crestor)Indicati ons:Coronary artery disease involving [place] coronary artery of [place] heart without angina pectoris,S/P drug eluting coronary [...] AT BEDTIME 30 Tablet 5 03/23/2023 Active Famotidine 20 MG Oral Tablet (Pepcid)Indicatio ns:Hiatal hernia Take 1 Tablet by mouth at bedtime. 30 Tablet 4 09/06/2022 3 Discontinued documented as of this encounter (statuses as of 03/23/2023) Active Problems Problem Noted Date Diagnosed Date Prediabetes 11/10/2020 Overview: Per Prediabetes protocol HTN, goal below 140/90 07/06/2019 Dyslipidemia, goal LDL below 70 07/06/2019 Coronary artery disease invo lving [place] coronary artery of [place] heart without angina pectoris 05/29/2017 S/P drug eluting coronary stent placement 2017 History of non-ST elevation myocardial infarctio n (NSTEMI) 05/29/2017 Senile osteoporosis 03/10/2017 Gastroesophageal reflux disease without esophagi tis 03/10/2017 documented as of this encounter (statuses as of 03/23/2023) Resolved Problems Problem Noted Date Diagnosed Date [...] as of this encounter (statuses as of 03/23/2023) Immunizations Name Administration Dates Next Due COVID-19 mRNA, LNP-s, No Pre serve, 2-Dose Series (20x200) 04/16/2021,07/14/2020,06/09/2020 Covid-19, Mrna, Lnp-s, Pf, B ivalent, 30 Mcg, IM, 12 yrs and above (Pfizer) 02/09/2022 Pneumococcal Conjugate Vacc, 13 Valent (Prevnar) 01/31/2015 Pneumococcal Polysaccharide PPV23 (Pneumovax) 08/18/2007 SEASONAL INFLUENZA, PF, 6 M & Above, IM , (FLULAVAL or FLUZONE) 02/09/2018 Season Influenza, Quad, PF, Adjuvanted, 65+ Yrs, IM (FLUAD) 01/10/2020 Seasonal Influenza, Quadriva lent Hd (Fluzone Hd) [...] encounter Miscellaneous Notes * Telephone Encounter - Erwin Nguyen [facility] - 03/23/2023 8:39 AM ESTSigned Prescriptions: Disp Refills Famotidine 20 MG Oral Tablet (Pepcid) 30 Tab*5 Sig: TAKE 1 TABLET BY MOUTH AT BEDTIMEAuthorizing Provider: Keenan MORALES User: ERWIN NGUYEN * Telephone Encounter - Erwin Nguyen [facility] - 03/23/2023 8:39 AM ESTSigned Prescriptions: Disp Refills Famotidine 20 MG Oral Tablet (Pepcid) 30 Tab*5 Sig: TAKE 1 TABLET BY MOUTH AT BEDTIME Authorizing Provider: SALENA MORALES Ordering User: ERWIN NGUYEN * Telephone Encounter - Demetria An, card clothier - 03/22/2023 11:09 AM EST Did you pend patient's preferred pharmacy and medication before forwarding?yes Pharmacy: [facility] [id number] Pending Prescriptions: Disp Refills Famotidine 20 MG Oral Tablet (Pepcid) [Ph*30 Tab*0 Sig: TAKE 1 TABLET BY MOUTH AT BEDTIME Last Visit: 02/09/2023 (in office), Visit date not found (telemedicine) Next Visit: 08/25/2023 If no future appointments scheduled, and last appointment is greater than a year ago, please schedule patient for a follow-up appointment Last date the medication was ordered: 09/06/2022 Is this request for a controlled substance?No [...] Care Team (Late st Contact Info) Description 03/31/2023 7:45 AM EST Imaging Radiology [facility] [address] [facility] [place] [address] 07/06/2023 8:30 AM EST Office Visit Cardiology, [facility] [address] [facility] [place] [address] Arnulfo Arias PA-C [address] [facility] [place] [address] 07/14/2023 8:20 AM EDT Telemedicine Endocrinology, [place] [address] [place] [address] Jose Mendoza MD [address] [place], [place] [id number] 08/25/2023 9:20 AM EDT Office Visit General Internal Medicine [facility] [address] [place] [address] Vesta Reyes MD [address] [place] [address] Health Maintenance Due Date Last Done Comments Zoster Vaccines (2 of 3) 09/16/2011 07/22/2011 COVID-19 Vaccine ( season) 2022 02/09/2022, 04/16/2021, 07/14/2020, Additional history exists Depression Screening 02/10/2024 02/09/2023 GFR 02/10/2024 02/09/2023, 0411/2022, 07/03/2021, Additional history exists HbA1c 02/10/2024 02/09/2023, [...] this encounter Medical Devices Implanted Type Area Dining Car Server Device Identifier Shelf Expiration Date Model / Serial / Lot Lens Intraoc 21.5 - [id number] - [id number] Implanted:Qty: 1 on 06/01/2016 by Scott Mckee MD at OR [facility] Right: Eye [employer] 12/30/2020 [id number] / [id number] / [id number] Lens Intraoc 20.0 - [id number] - [id number] Implanted:Qty: 1 on 06/15/2016 by Scott Mckee MD at OR [facility] Left: Eye [employer] 01/29/2021 [id number] / [id number] / [id number] Tr[employer] Drill Pin, 2 X100 Mm Implanted:Qty: 1 on 07/01/2017 by Renea Landrum DPM at OR [facility] Left: Foot [employer] 12/30/2018 [id number] / / [id number] documented as of this encounter Visit Diagnoses [...] and were consensually agreed upon. Care Teams Retail Service Specialist Relationship Specialty Start Date End Date Vesta Reyes MD [address] [place] [address] [place] [address] PCP - General 08/16/07 documented as of this encounter
--- OUTSIDE RECORDS SUMMARY | 2023-08-30 05:28 | External Medical Summary | Summary of Care ---
Author Name Unknown Organization [facility] Address [address] [place] [address] Phone [phone] Care Team Providers Care Slip Cover Sewer Name Role Phone Vesta Reyes MD Primary Care Provider + Reason for Visit * Reason Onset Date Comments Test Results 03/17/2023 Encounter Details Date Type Department Care Team (Late st Contact Info) Description 03/17/2023 Telephone Cardiology, [facility] [address] [place] [address] Arnulfo Arias PA-C [address] [place] [address] Test Results Allergies Active Allergy Reactions Criticality Noted Date Comments Pollen 11/05/2021 Hasn't been properly diagnosed, but has allergy symptoms worse in summer documented as of this encounter (statuses as of 03/17/2023) Medications Medication Sig Dispensed Refills Start Date [...] (aspirin enteric coated)Indications: Coronary artery disease involving chitimacha coronary artery of chitimacha heart without angina pectoris Take 1 tablet by mouth once daily 90 Tablet 3 05/26/2022 Active Pantoprazole Sodium 40 MG Oral Tablet Delayed Release (Protonix)Indicatio ns:Gastritis, presence of bleeding unspecified, unspecified chronicity, unspecified gastritis type Take 1 tablet by mouth once daily 90 Tablet 3 05/26/2022 Active Rosuvastatin Calcium 40 MG Oral Tablet (Crestor)Indication s:Coronary artery disease involving chitimacha coronary artery of chitimacha heart without angina pectoris,S/P drug eluting coronary stent placement,History of non-ST elevation myocardial infarction (NSTEMI) Take 1 tablet by mouth once daily 90 Tablet 3 09/06/2022 Active Famotidine 20 MG Oral Tablet (Pepcid)Indications :Hiatal hernia Take 1 Tablet by mouth at bedtime. 30 Tablet 4 09/06/2022 Active Loratadine 10 MG Oral Capsule Take 1 Capsule by mouth as needed for Rhinitis. 0 Active Metoprolol Succinate ER 25 MG Oral Tablet Extended Release 24 Hour (toPROL XL) Take 1 tablet by mouth once daily 90 Tablet 2 12/07/2022 Active documented as of this encounter (statuses as of 03/17/2023) Active Problems Problem Noted Date Diagnosed Date Prediabetes 11/10/2020 Overview: Per Prediabetes protocol HTN, goal below 140/90 07/06/2019 Dyslipidemia, goal LDL below 70 07/06/2019 Coronary artery disease invo lving chitimacha coronary artery of chitimacha heart without angina pectoris 05/29/2017 S/P drug eluting coronary stent placement 2017 History of non-ST elevation myocardial infarctio n (NSTEMI) 05/29/2017 Senile osteoporosis 03/10/2017 Gastroesophageal reflux disease without esophagi tis 03/10/2017 documented as of this encounter (statuses as of 03/17/2023) Resolved Problems Problem Noted Date Diagnosed Date [...] as of this encounter (statuses as of 03/17/2023) Immunizations Name Administration Dates Next Due COVID-19 mRNA, LNP-s, No Pre serve, 2-Dose Series ([employer]) 04/16/2021,07/14/2020,06/09/2020 Covid-19, Mrna, Lnp-s, Pf, B ivalent, 30 Mcg, IM, 12 yrs and above ([employer]) 02/09/2022 Pneumococcal Conjugate Vacc, 13 Valent [...] Telephone Encounter - Harlan Heredia LPN - 03/17/2023 1:22 PM EST Called patient and informed of Arnulfo's message. Patient verbalized understanding. ----- Message from Arnulfo Arias PA-C sent at 03/16/2023 12:55 PM EST ----- Follow-up limited echo reveals a small loculated pericardial effusion adjacent to the RV free wall and right atrium without evidence of cardiac tamponade. Findings unchanged compared to the [facility]. Patient undergoing work-up through PCP for underlying cause. documented in this encounter Plan of Treatment Upcoming Encounters Date Type Department Care Team (Late st Contact Info) Description 07/06/2023 8:30 AM EST Office Visit Card[facility], [facility] [place] [address] Arnulfo Arias PA-C [address] [place] [address] 07/14/2023 8:20 AM EDT Telemedicine Endocrinology, [facility] [address] [place] [address] Jose Mendoza MD [address] [place] [address] 08/25/2023 9:20 AM EDT Office Visit General Internal Medicine [facility] [place] [address] [facility] [place] [address] Vesta Reyes MD [address] [facility] [place] [address] Health Maintenance Due Date Last Done Comments [...] this encounter Medical Devices Implanted Type Area Cafeteria Team Leader Device Identifier Shelf Expiration Date Model / Serial / Lot Lens Intraoc 21.5 - [id number] - [id number] Implanted:Qty: 1 on 06/01/2016 by Scott Mckee MD at OR [facility] Right: Eye [employer] 12/30/2020 [id number] / [id number] / [id number] Lens Intraoc 20.0 - [id number] - [id number] Implanted:Qty: 1 on 06/15/2016 by Scott Mckee MD at OR [facility] Left: Eye [employer]OMB 01/29/2021 [id number] / [id number] / [id number] Trim-It Drill Pin, 2 X100 Mm Implanted:Qty: 1 on 07/01/2017 by Renea Landrum DPM at OR [facility] Left: Foot [employer] 12/30/2018 [id number] / / [id number] documented as of this encounter Advance Directives [...] and were consensually agreed upon. Care Teams Slip Cover Sewer Relationship Specialty Start Date End Date Vesta Reyes MD [address] [place] [address] PCP - General 08/16/07 documented as of this encounter
--- OUTSIDE RECORDS SUMMARY | 2023-08-30 05:28 | External Medical Summary | Summary of Care ---
Author Name Unknown Organization [facility] Address [address] [place] [address] Phone [phone] Care Team Providers Care Centerless Grinding Machine Adjuster Name Role Phone Vesta Reyes MD Primary Care Provider + Reason for Referral * Precert (Within 10 days (routine)) - Pending Review Specialty Diagnoses / Procedures Referred By Brett whitlock Referred To Contact Radiology Diagnoses Primary hyperparathyroidism (HCC) Procedures CT NECK W WO CONTRAST Jose Mendoza MD [address] [place] [address] Referral ID Status Reason Start Date Expiration Date V isits Requested Visits Authorized [id number] Pending Review 03/17/2023 999 [id number] Reason for Visit * Reason Comments Follow Up * Evaluate & Treat - Unlimited Visits (Within 10 days (routine)) - Authorized Specialty Diagnoses / Procedures Referred By Brett whitlock Referred To Contact Endocrinology/Metabolism / Endocrinology Diagnoses Hypercalcemia Vesta Reyes MD [address] [place] [address] Referral ID Status Reason Start Date Expiration Date Visits Requested Visits Authorized [id number] Authorized Specialty Services Required 3 [phone] Encounter Details Date Type Department Care Team (Latest Contact Info) Description 03/17/2023 8:40 AM EST Office Visit Jose Maria Sterling [address] [place], [place] [id number] Jose Mendoza MD [address] [place] [address] Primary hyperparathyroidism (HCC)*; Hypercalcemia; Age-related osteoporosis without current pathological fracture Allergies Active Allergy Reactions Criticality Noted Date [...] (aspirin enteric coated)Indications: Coronary artery disease involving [place] coronary artery of [place] heart without angina pectoris Take 1 tablet by mouth once daily 90 Tablet 3 05/26/2022 Active Pantoprazole Sodium 40 MG Oral Tablet Delayed Release (Protonix)Indicatio ns:Gastritis, presence of bleeding unspecified, unspecified chronicity, unspecified gastritis type Take 1 tablet by mouth once daily 90 Tablet 3 05/26/2022 Active Rosuvastatin Calcium 40 MG Oral Tablet (Crestor)Indication s:Coronary artery disease involving round [place] coronary artery of round [place] heart without angina pectoris,S/P drug eluting [...] 72 07/06/2019 Coronary artery disease invo lving round valley coronary artery of round valley heart without angina pectoris 05/29/2017 S/P [...] mRNA, LNP-s, No Pre serve, 2-Dose Series ([employer]) 04/16/2021,07/14/2020,06/09/2020 Covid-19, Mrna, Lnp-s, Pf, B [...] Sign Reading Time Taken Comments Blood Pressure 157/79 03/17/2023 8:37 AM EST Pulse 77 03/17/2023 8:37 AM EST Temperature - - Respiratory Rate - - Oxygen Saturation - - Inhaled Oxygen Concentration - - Weight 67.4 kg (148 lb 11.2 oz) 03/17/2023 8:37 AM EST Height 152.4 cm (5') 03/17/2023 8:37 AM EST Body Mass Index 29.04 03/17/2023 8:37 AM EST documented in this encounter Patient Instructions * Patient Instructions* Jose Mendoza MD - 03/17/2023 9:14 AM EST Keep your self well hydrated Have 3 servings of dietary calcium daily ViT D [address] neck ordered Fu in 3 months documented in this encounter Progress Notes * Jose Mendoza MD - 03/17/2023 8:43 AM EST CC Hypercalcemia Hyperparathyroidism Referred by: Vesta Reyes MD She was last seen endocrinology office by Dr. Montenegro in 11/2020. New patient to me Date of service: 03/17/2023 Accompanied by: HPI Donita Brandon is a 82 year old female with hypercalcemia -hypercalcemia at least since 2019 -recent elevated PTH -has had vitamin-D deficiency in the past. Recent vitamin-D levels No calcium supplementation. Dietary calcium intake is not very. Does not take any Tums or Rolaids. Not on HCTZ or lithium Taking vitamin D supplementation-1000 IU/day Has history of osteoporosis---sees Rheumatology/seen in [facility] Has been on Prolia 60 mg every 6 months-- until year (2019)-- she was concerned about immune systemamid COVID pandemic, so stopped taking prolia-- reports being on for 1.5 to 2 years Was on fosamax for 9 years in the past. No fractures. Had Nephrolithiasis- age 24 year and 41 years and 50's. No recent kidney stones. No evidence of kidney stones on recent renal imaging. No renal insufficiency. No family history of hyperparathyroidism, hypercalcemia, nephrolithiasis, pituitary tumors, or ulcer disease. Denies nausea, abdominal pain or chronic constipation. No history of peptic ulcer disease or pancreatitis. Reports fatigue, poor sleep. Denies mood irritability or issues with long-term memory. Denies cognitive issues. Reports arthralgias especially pain in lower back and hips. No history of glucocorticoid use. No history of rheumatoid arthritis. Nonsmoker. Denies alcohol use Interval history: 1. Parathyroid imaging ([address] neck) in 2020 with 2 potential parathyroid candidates. Seen by ENT (Dr. Blank) in 2020. Recalls that surgery was proposed but not pushed hence she thought that it was not necessary. Now interested in surgery. 2. No interval falls, fractures or kidney stones 3. Continues to take vitamin-D daily. Does not take any calcium supplements. Keeps herself well hydrated. 4. Recent calcium and PTH noted to be elevated. No renal insufficiency or vitamin-D deficiency. Previously, 24 hour urine calcium was not high. Lab review: Component Latest Ref Rng & Units 08/13/2020 PTH 15 - 65 pg/mL 134 (H) Ref. Range 09/12/2019 09:56 01/10/2020 12:56 04/17/2020 14:46 08/13/2020 10:26 Calcium Latest Ref Range: 8.4 - 10.2 mg/dL 10.5 (H) 10.0 10.5 (H) 10.1 Estimated Glomerular Filtration Rate Latest Ref Range: >60 >60.0 >60.0 >60.0 PTH Latest Ref Range: 15 - 65 pg/mL 134 (H) Imaging: DEXA scan 03/12/2019: RESULTS: Lumbar Spine: 0.870 gms/cm2 T-score: -1.9 Right femoral neck: 0.638 gms/cm2 T-score: -1.9 Compared to a study that was performed on 03/07/2017, there has been a significant increase of 5.7 %at the lumbar spine and a significant increase of 7 % the total hip. PMH Past Medical History: Diagnosis Date CAD (coronary artery disease) Diaphragmatic hernia Esophageal reflux 03/16/07 Kidney stone [place] (myocardial infarction) ([facility]) 01/2017 Other osteoporosis 01/31/2002 Other osteoporosis without current pathological fracture 01/31/2002 ICD-10 update of inactive term PSH Past Surgical History: Procedure Laterality Date BUNION CORRECTED W/SESAMOIDECTOMY W/ RESECT PROX PHALANX Left 07/01/2017 CORRECTION HALLUX VALGUS, RESECTION PROXIMAL PHALANX BASE performed by Renea Landrum DPM at OR [facility] BUNION CORRECTED WITH PHALANX OSTEOTOMY Left 07/01/2017 CORRECTION HALLUX VALGUS, PROXIMAL PHALANX OSTEOTOMY performed by Renea Landrum DPM at OR [facility] DELIVERY 08/03/1984 x 2 DELIVERY 11/03/1982 emergency c section STILLBORN COLONOSCOPY 01/2004 polpyp, repeat in 3 years COLONOSCOPY W/ LESION REMOVAL, SNARE 11/18/2006 repeat 3yrs adenomatous tissue COLONOSCOPY W/ LESION REMOVAL, SNARE 11/24/2009 path shows adenomatous tissue repeat in 3 years- diverticulosis entire colon COLONOSCOPY, DIAGNOSTIC (RECTUM) 12/11/2012 COLONOSCOPY FLEXIBLE PROXIMAL DIAGNOSTIC performed by Sarmad Vasquez MD at [facility], hyperplastic polyps repeat colonoscopy in 5 years COLONOSCOPY, DIAGNOSTIC (RECTUM) 08/07/2013 COLONOSCOPY FLEXIBLE PROXIMAL DIAGNOSTIC performed by Nargis Collier DO at ENDOSCOPY [facility] COLONOSCOPY, DIAGNOSTIC (RECTUM) 03/15/2018 normal bx, diverticulosis, fair prep, repeat 3 yrs/COLONOSCOPY FLEXIBLE PROXIMAL DIAGNOSTIC performed by Nargis Collier DO at ENDOSCOPY [facility] COLONOSCOPY, DIAGNOSTIC (RECTUM) 11/11/2021 benign adenomatous & serrated adenomatous polyp / COLONOSCOPY FLEXIBLE PROXIMAL DIAGNOSTIC performed by Alejandra Pereira MD at ENDOSCOPY [facility] CYSTOSCOPY 02/02/2005 ansong EGD, FLEXIBLE, DIAGNOSTIC 08/07/2013 ESOPHAGOGASTRODUODENOSCOPY (EGD), FLEXIBLE, TRANSORAL, DIAGNOSTIC performed by Nargis Collier DO at ENDOSCOPY [facility] EGD, FLEXIBLE, DIAGNOSTIC 09/30/2017 mild reactive inflammation, hiatal hernia, esophageal erosions/[facility] EGD, FLEXIBLE, W/BIOPSY 03/16/2007 hiatus hernia gerd EGD, FLEXIBLE, W/BIOPSY 02/07/2009 biopsies from esophagus--no inflammation--very mild irritation of the stomach without evidence of H.Pylori INFORMATION 03/02/2017 cardiac stent x1 LAPAROSCOPY; CHOLECYSTECTOMY 08/29/2009 [facility] [place] - Dr. Huang - cholecystectomy lap - [...] performed by Scott Mckee MD at OR [facility] REMOVE CATARACT, INSERT LENS PROSTH Left 06/15/2016 leftEXTRACAPSULAR CATARACT REMOVAL WITH INTRAOCULAR LENS performed by Scott Mckee MD atOR [facility] REPAIR OF HAMMERTOE, ONE TOE Left 07/01/2017 CORRECTION HAMMERTOE performed by Renea Landrum DPM at OR [facility] TOTAL HYSTERECTOMY 11/1984 NOEMI (Total Abdominal Hysterectomy) MEDS No outpatient medications have been marked as taking for the 03/17/23 encounter (Office Visit) withJose Mendoza MD. SH Social History Tobacco Use Smoking status: Never Smokeless tobacco: Never Substance Use Topics Alcohol use: Yes Comment: occasionally Vaping/E-Cigarette Use Vaping/E-Cigarette Use Never User Passive Exposure No Counseling Given? No Vaping/E-Cigarette Substances Nicotine No Other No Flavoring No THC No Cannabidiol (CBD) No Vaping/E-Cigarette Devices Disposable No Pre-filled or Refillable Cartridge No Refillable Tank No Pre-filled Pod No FH Family History Problem Relation Age of Onset Cancer Sister 53 breast, CLL, age 62 Heart Disorder Mother angioplasty Heart Disorder Father Hypertension Mother Mental Disorder Mother depression/anxiety Neurological Disorder Father Alzheimer's Heart Disorder Brother Cancer Father 73 prostate Arthritis Mother Stroke None Thyroid Disorder Mother ROS: As per HPI. Others reviewed and noted to be negative PE BP 157/79 | Pulse 77 | Ht 1.524 m (5') | Wt 67.4 kg (148 lb 11.2 oz) | BMI 29.04 kg/m | BSA 1.69 m General appearance: Well-developed, well-nourished, not in distress Eyes: Clear sclera, no irritation Neck: No visible goiter/mass Respiratory system: Not in distress, Normal breathing pattern Neurological: Awake alert and oriented x3 Psychiatric: Cooperative and appropriate mood RECORDS I reviewed the available medical records and have summarized the relevant information per HPI above. LABS Latest Reference Range & Units 07/03/21 10:25 08/17/22 12:28 02/09/23 11:05 Creatinine 0.5 - 1.0 mg/dL 0.7 0.7 0.7 Estimated Glomerular Filtration Rate >=60 mL/min 88 89 87 Calcium 8.4 - 10.2 mg/dL 10.5 (H) 10.2 10.5 (H) Magnesium 1.5 - 2.6 mg/dL 2.2 PTH 15 - 65 pg/mL 105 (H) TSH 0.27 - 4.20 uIU/mL 1.30 Albumin 3.8 - 5.0 g/dL 4.6 4.6 4.7 Alkaline Phosphatase 35 - 130 U/L [address] Neck 2020 ADDENDUM: As a correction to the initial report, there is a right paraesophageal soft tissue nodule measuringapproximately 0.8 x 0.5 x 1.2 cm on series 26, image 156 and series 16 image 64. Additionally, there is an approximately 0.8 x 0.3 by 1.6 cm left paraesophageal soft tissue nodule on series 26, [id number] and series 16, image 54. Both of these nodules demonstrate arterial phase contrast enhancement and delayed phase washout and are both concerning for parathyroid adenomas US head and neck 2020 FINDINGS The thyroid is normal in size [...] No parathyroid adenoma identified on this examination. RESULTS DXA scan 05/2021: Lumbar Spine: 0.870 gms/cm2 T-score: -1.9 Left femoral neck: 0.588 gms/cm2 T-score: -2.4 Using the NOF/WHO FRAX calculator, the 10 year absolute risk for any major osteoporotic fracture is16 % and the risk for hip fracture is 4.9 %. VFA not indicated Compared to a study that was performed on March 12, 2019, there has been no significant change at the lumbar spine and a significant decrease of 6.4 % the total hip. IMP 1. Hypercalcemia 2. Hyperparathyroidism 3. Vitamin-D deficiency 4. Renal stones 5. Osteoporosis Comments: Patient has PTH mediated hypercalcemia (elevated corrected serum calcium + elevated PTH) consistentwith primary hyperparathyroidism. No HCTZ/lithium on board. Hypercalcemia symptoms: Fatigue, arthralgias Other etiologies of hypercalcemia including HHM (humoral hypercalcemia of malignancy), hypercalcemia from lymphoproliferative disorders, multiple myeloma, vitamin-D intoxication, milk alkali syndromeare unlikely due to fact that patient has PTH mediated hypercalcemia rather than non PTH mediated hy percalcemia. Prior normal calcium makes FHH unlikely. Plan: Etiology, pathophysiology, diagnostic and therapeutic options for management of primary hyperparathyroidism has been discussed with patient. She is deemed to be candidate for surgical management of primary hyperparathyroidism on account of: Osteoporosis History of nephrolithiasis She had 4 dimensional in 2020 which 2 potential parathyroid candidates. She deferred surgery at that time thinking that it was not necessary. She recently had DEXA scan in 2021 which showed loss of BMD at hip (-6.4%). She has been previouslytreated for osteoporosis with Fosamax (for 9 years) and Prolia (for about 2 years with last treatment in 2020) Her functional status is reasonable. She had non STEMI in past requiring coronary intervention. Shemight need cardiology clearance prior to surgical intervention. She is interested in pursuing surgical management of primary hyperparathyroidism. Criteria: 1. Age less than 50: No 2. GFR less than 60: No 3. History of nephrolithiasis: Yes 4. 24 hour urine calcium more than 400 mg per day: No. 5. History of fragility fractures: No. 6. Evidence of osteoporosis on DEXA scan: Yes. 7. Corrected serum calcium more than 1 mg/dL above upper limit of normal: No Prior to referring her to ENT to discuss surgical management, I have placed an order to repeat [address] neck and depending on results, we will refer her to ENT to discuss parathyroidectomy. Meanwhile, I have advised patient to keep herself well hydrated. She has been advised to continue taking vitamin-D 1000 IU daily. She has been advised to take calcium 1000 mg from dietary sources only. Advised not to take any [id number] calcium supplements. Follow-up: 3 months This chart was completed in part utilizing [employer] Speech Voice Recognition Software. Grammatical errors, random word insertions, pronoun errors, and incomplete sentences are an occasional consequence of this system due to software limitations, ambient noise, and hardware issues. Any formal questions or concerns about the content, text, or information contained within the body of this dictation should be directly addressed to the provider for clarification. Thanks very much for allowing me to assist with this patient's care. Please do not hesitate to contact, in case of any questions or concerns. I spent a total of 40-54 minutes (exact time 42 mins) on the date of service in preparation, delivery, and documentation of the care provided to Donita Brandon excluding any time spent in the performance of separately billed services. Jose Mendoza MD Endocrinology Physician [address], [place] [address] documented in this encounter Nursing Notes * June Romo LPN - 03/17/2023 8:32 AM EST Patient was instructed to not get up on the exam table/exam chair until directed and assisted by their provider; patient is to remain seated in the chair/ wheelchair/ exam table/ exam chair for fall prevention and safety reasons. Patient is aware to have assistance to step down off exam table/exam chair with personnel. Patient voiced full comprehension of instructions. June Romo LPN documented in this encounter Plan of Treatment Upcoming Encounters Date Type Department Care Team (Late st Contact Info) Description 07/06/2023 8:30 AM EST Office Visit Cardiology, [facility] [address] [place] [address] Arnulfo Arias PA-C [address] [place] [address] 07/14/2023 8:20 AM EDT Telemedicine Endocrinology, [address] [address] Jose Mendoza MD [facility] [address] [place], [place] [id number] 08/25/2023 9:20 AM EDT Office Visit General Internal Medicine [employer] [address] [place] [address] Vesta Reyes MD [address] [facility] [place] [address] Scheduled Orders Name Type Priority Associated Diagnoses Orde r Schedule CT NECK W WO CONTRAST Medical Imaging Routine Primary hyperparathyroidism (HCC) Expected: 03/17/2023, Expires: 03/16/2024 CREATININE Lab Routine Primary hyperparathyroidism (HCC) Expected: 03/17/2023 (Approximate), Expires: 03/17/2024 Health Maintenance Due Date Last Done Comments [...] this encounter Medical Devices Implanted Type Area Health Care Facilities Inspector Device Identifier Shelf Expiration Date Model / Serial / Lot Lens Intraoc 21.5 - [id number] - [id number] Implanted:Qty: 1 on 06/01/2016 by Scott Mckee MD at OR [facility] Right: Eye [employer] 12/30/2020 [id number] / [id number] / [id number] Lens Intraoc 20.0 - [id number] - [id number] Implanted:Qty: 1 on 06/15/2016 by Scott Mckee MD at OR [facility] Left: Eye [employer] 01/29/2021 [id number] / [id number] / [id number] Trim-It Drill Pin, 2 X100 Mm Implanted:Qty: 1 on 07/01/2017 by Renea Landrum DPM at OR [facility] Left: Foot [employer] 12/30/2018 [id number] / / [id number] documented as of this encounter Visit Diagnoses Diagnosis Primary hyperparathyroidism (HCC)- Primary Primary hyperparathyroidism Hypercalcemia Age-related osteoporosis without current pathological fracture Senile osteoporosis documented in this encounter Advance Directives Latest [...] and were consensually agreed upon. Care Teams Centerless Grinding Machine Adjuster Relationship Specialty Start Date End Date Vesta Reyes MD [address] [place] [address] PCP - General 08/16/07 documented as of this encounter"
--- OUTSIDE RECORDS SUMMARY | 2023-08-30 05:28 | External Medical Summary | Summary of Care ---
Author Name Unknown Organization [facility] Address [address] [place] [address] Phone [phone] Care Team Providers Care Government Clerk Name Role Phone Vesta Reyes MD Primary Care Provider + Reason for Referral * Evaluate & Treat - Unlimited Visits (Within 30 days (routine)) - Authorized Specialty Diagnoses / Procedures Referred By Brett whitlock Referred To Contact Otolaryngology Diagnoses Primary hyperparathyroidism (HCC) Ramsey Ace MD [address] [place] [address] Referral ID Status Reason Start Date Expiration Date Visits Requested Visits Authorized [id number] Authorized Specialty Services Required 04/01/[phone] Question Answer Referral Priority Within 30 days (routine) Where should this appointment be scheduled? [facility] Reason for Referral Thyroid/Parathyroid/Oral Lesions/Head/Neck/Cancer Conditions Specific Condition: Parathyroid Comments Primary hyperparathyroidism. Indication for surgery: Osteoporosis and nephrolithiasis * Precert (Within 10 days (routine)) - Pending Review Specialty Diagnoses / Procedures Referred By Contchauncey t Referred To Contact Radiology Diagnoses Primary hyperparathyroidism (HCC) Procedures NM PARATHYROID SCAN (SPECT & CT) Ramsey Ace MD [address] [place] [address] Referral ID Status Reason Start Date Expiration Date V isits Requested Visits Authorized [id number] Pending Review 04/01/2023 999 999 * Precert (Within 10 days (routine)) - Pending Review Specialty Diagnoses / Procedures Referred By Contchauncey whitlock Referred To Contact Radiology Diagnoses Primary hyperparathyroidism (HCC) Procedures CT NECK W WO CONTRAST Ramsey Ace MD [address] [place] [address] Referral ID Status Reason Start Date Expiration Date V isits Requested Visits Authorized [id number] Pending Review 03/17/2023 999 999 Reason for Visit * Reason Comments Follow Up * Evaluate & Treat - Unlimited Visits (Within 10 days (routine)) - Authorized Specialty Diagnoses / Procedures Referred By Brett whitlock Referred To Contact Endocrinology/Metabolism / Endocrinology Diagnoses Hypercalcemia Vesta Reyes MD [address] [place] [address] Referral ID Status Reason Start Date Expiration Date Visits Requested Visits Authorized [id number] Authorized Specialty Services Required 3 [phone] Encounter Details Date Type Department Care Team (Latest Contact Info) Description 03/17/2023 8:40 AM EST Office Visit Endocrinology, [place] [address] [place] [address] Ramsey Ace MD [address] [place] [address] Primary hyperparathyroidism (HCC)*; Hypercalcemia; Age-related osteoporosis without current pathological fracture Allergies Active Allergy Reactions Criticality Noted Date Comments Pollen 11/05/2021 Hasn't been properly diagnosed, but has allergy symptoms worse in summer documented as of this encounter (statuses as of 04/01/2023) Medications Medication Sig Dispensed Refills Start Date [...] (aspirin enteric coated)Indication s:Coronary artery disease involving koi coronary artery of koi heart without angina pectoris Take 1 tablet by mouth once daily 90 Tablet 3 05/26/2022 Active Pantoprazole Sodium 40 MG Oral Tablet Delayed Release (Protonix)Indicat ions:Gastritis, presence of bleeding unspecified, unspecified chronicity, unspecified gastritis type Take 1 tablet by mouth once daily 90 Tablet 3 05/26/2022 Active Rosuvastatin Calcium 40 MG Oral Tablet (Crestor)Indicati ons:Coronary artery disease involving koi coronary artery of koi heart without angina pectoris,S/P drug eluting coronary [...] as of this encounter (statuses as of 04/01/2023) Active Problems Problem Noted Date Diagnosed Date Prediabetes 11/10/2020 Overview: Per Prediabetes protocol HTN, goal below 140/90 07/06/2019 Dyslipidemia, goal LDL below 70 07/06/2019 Coronary artery disease invo lving koi coronary artery of koi heart without angina pectoris 05/29/2017 S/P drug eluting coronary stent placement 2017 History of non-ST elevation myocardial infarctio n (NSTEMI) 05/29/2017 Senile osteoporosis 03/10/2017 Gastroesophageal reflux disease without esophagi tis 03/10/2017 documented as of this encounter (statuses as of 04/01/2023) Resolved Problems Problem Noted Date Diagnosed Date [...] as of this encounter (statuses as of 04/01/2023) Immunizations Name Administration Dates Next Due COVID-19 mRNA, LNP-s, No Pre serve, 2-Dose Series ([employer]) 04/16/2021,07/14/2020,06/09/2020 Covid-19, Mrna, Lnp-s, Pf, B ivalent, 30 Mcg, IM, 12 yrs and above ([employer]) 02/09/2022 Pneumococcal Conjugate Vacc, 13 Valent (Prevnar) [...] this encounter Patient Instructions * Patient Instructions* Ramsey Ace MD - 03/17/2023 9:14 AM EST Keep your self well hydrated Have 3 servings of dietary calcium daily ViT D [address] neck ordered Fu in 3 months documented in this encounter Progress Notes * Ramsey Ace MD - 03/17/2023 8:43 AM EST CC Hypercalcemia Hyperparathyroidism Referred by: Vesta Reyes MD She was last seen endocrinology office by Dr. Montenegro in 11/2020. [place] Date of service: 03/17/2023 Accompanied by: HPI [...] Diaphragmatic hernia Esophageal reflux 03/16/07 Kidney stone SC (myocardial infarction) ([facility]) 01/2017 Other osteoporosis 01/31/2002 Other osteoporosis without current pathological fracture 01/31/2002 ICD-10 update of inactive term PSH Past Surgical History: Procedure Laterality Date BUNION CORRECTED W/SESAMOIDECTOMY W/ RESECT PROX PHALANX Left 07/01/2017 CORRECTION HALLUX VALGUS, RESECTION PROXIMAL PHALANX BASE performed by Renea Landrum DPM at OR [facility] BUNION CORRECTED WITH PHALANX OSTEOTOMY Left 07/01/2017 CORRECTION HALLUX VALGUS, PROXIMAL PHALANX OSTEOTOMY performed by Renea Landrum DPM at OR [facility] DELIVERY 08/03/1984 x 2 DELIVERY 11/03/1982 [...] performed by Nargis Collier DO at ENDOSCOPY [facility] COLONOSCOPY, DIAGNOSTIC (RECTUM) 03/15/2018 normal bx, diverticulosis, fair prep, repeat 3 yrs/COLONOSCOPY FLEXIBLE PROXIMAL DIAGNOSTIC performed by Nargis Collier DO at ENDOSCOPY [facility] COLONOSCOPY, DIAGNOSTIC (RECTUM) 11/11/2021 benign adenomatous & serrated adenomatous polyp / COLONOSCOPY FLEXIBLE PROXIMAL DIAGNOSTIC performed by Alejandra Pereira MD at ENDOSCOPY [facility] CYSTOSCOPY 02/02/2005 ansong EGD, FLEXIBLE, DIAGNOSTIC 08/07/2013 ESOPHAGOGASTRODUODENOSCOPY (EGD), FLEXIBLE, TRANSORAL, DIAGNOSTIC performed by Nargis Collier DO at ENDOSCOPY [facility] EGD, FLEXIBLE, DIAGNOSTIC 09/30/2017 mild reactive inflammation, hiatal hernia, esophageal erosions/[facility] EGD, FLEXIBLE, W/BIOPSY 03/16/2007 hiatus hernia gerd EGD, FLEXIBLE, W/BIOPSY 02/07/2009 biopsies from esophagus--no inflammation--very mild irritation of the stomach without evidence of H.Pylori INFORMATION 03/02/2017 cardiac stent x1 LAPAROSCOPY; CHOLECYSTECTOMY 08/29/2009 [facility] - Dr. Huang - cholecystectomy lap - [...] performed by Scott Mckee MD at OR [facility] REMOVE CATARACT, INSERT LENS PROSTH Left 06/15/2016 leftEXTRACAPSULAR CATARACT REMOVAL WITH INTRAOCULAR LENS performed by Scott Mckee MD atOR [facility] REPAIR OF HAMMERTOE, ONE TOE Left 07/01/2017 CORRECTION HAMMERTOE performed by Renea Landrum DPM at OR [facility] TOTAL HYSTERECTOMY 11/1984 NOEMI (Total Abdominal Hysterectomy) MEDS No outpatient medications have been marked as taking for the 03/17/23 encounter (Office Visit) withRamsey Ace MD. SH Social History Tobacco Use Smoking [...] paraesophageal soft tissue nodule on series 26, and series 16, image 54. Both of [...] sources only. Advised not to take any nxtp-kch-nbvyokt calcium supplements. Follow-up: 3 months This chart was completed in part utilizing [employer] Voice Recognition Software. Grammatical errors, random [...] in the performance of separately billed services. Ramsey Ace MD Endocrinology Physician [address], [place] [address] documented in this encounter Nursing Notes * [...] June Romo LPN documented in this encounter Miscellaneous Notes * Addendum Note - Ramsey Ace MD - 04/01/2023 8:41 AM ESTAddended by: RAMSEY ACE on: 04/01/2023 08:41 AM Modules accepted: Orders documented in this encounter Plan of Treatment Upcoming Encounters Date Type Department Care Team (Late st Contact Info) Description 07/06/2023 8:30 AM EST Office Visit Cardiology, [facility] [address] [facility] [place] [address] Arnulfo Arias PA-C [facility] [place] [address] 07/14/2023 8:20 AM EDT Telemedicine Endocrinology, [place] [address] [place] [address] Ramsey Ace MD [address] [place] [address] 08/25/2023 9:20 AM EDT Office Visit General Internal Medicine [facility] [address] [facility] [place] [address] Vesta Reyes MD [address] [facility] [place] [address] Scheduled Orders Name Type Priority Associated Diagnoses Orde r Schedule CREATININE Lab Routine Primary hyperparathyroidism (HCC) Expected: 03/17/2023 (Approximate), Expires: 03/17/2024 NM PARATHYROID SCAN (SPECT & CT) Medical Imaging Routine Primary hyperparathyroidism (HCC) Expected: 04/01/2023 (Approximate), Expires: 05/02/2024 Scheduled Referrals Name Type Priority Associated Diagnoses Orde r Schedule OTOLARYNGOLOGY REFERRAL OP Referral Within 30 days (routine) Primary hyperparathyroidism (HCC) Ordered: 04/01/2023 Health Maintenance Due Date Last Done Comments [...] this encounter Medical Devices Implanted Type Area Deputy Editor In Chief Device Identifier Shelf Expiration Date Model / Serial / Lot Lens Intraoc 21.5 - [id number] - [id number] Implanted:Qty: 1 on 06/01/2016 by Scott Mckee MD at OR [facility] Right: Eye [employer] 12/30/2020 [id number] / [id number] / [id number] Lens Intraoc 20.0 - [id number] - [id number] Implanted:Qty: 1 on 06/15/2016 by Scott Mckee MD at OR [facility] Left: Eye [employer] 01/29/2021 [id number] / [id number] / [id number] Trim-It Drill Pin, 2 X100 Mm Implanted:Qty: 1 on 07/01/2017 by Renea Landrum DPM at OR [facility] Left: Foot [employer] 12/30/2018 [id number] / / [id number] documented as of this encounter Results * CT NECK W WO CONTRAST (03/31/2023 8:00 AM EST) Anatomical Region Laterality Modality Neck, Head, Sinus Computed Tomog darian 03/31/2023 7:19 PM EST Impressions 03/31/2023 7:16 PM EST IMPRESSION 1. 2 soft tissue densities adjacent to the esophagus and posterior to the thyroid as described above demonstrate enhancement characteristics which may reflect parathyroid tissue. 2. Small additional focus of enhancing soft tissue anterior to the cricoid on the left is closer to thyroid parenchyma in its enhancement characteristics and is more likely reflected to thyroid tissue, although an additional focus of parathyroid gland is not excluded. 3. Dental lucency about the most posterior remaining right maxillary molar tooth with adjacent soft tissue thickening in the paranasal sinus. 4. Advanced disc degeneration and multilevel foraminal stenosis in the mid and lower cervical spine. Narrative 03/31/2023 7:[address] NECK W WO CONTRAST-03/31/2023 8:00 am [...] enhancing soft tissue which is hypodense to the thyroid parenchyma on the noncontrast imaging and may demonstrate faint washout on the venous phase. There is a focus of additional tissue along the left lateral aspect of the esophagus at the same level which has similar density characteristics measuring approximately 5 mm. Anterior to the cricoid cartilage on the left there is another small focus of tissue with density characteristics which are similar to the thyroid gland seen on image [...] foraminal stenosis from uncovertebral hypertrophy and spurring. Procedure Note Erwin Mcgrath MD - 03/31/[address] NECK W WO CONTRAST-03/31/2023 8:00 am HISTORY Requesting 4D CT Neck for parathyorid localization prior to parathyoridsurgery TECHNIQUE Noncontrast CT images were acquired through the neck. CT images withinacquired through the neck following IV contrast administration in thearterial and venous phases and coronal and sagittal reformats weregenerated. COMPARISON January 19, 2021 and ultrasound January 19, 2021. FINDINGS Adjacent to the lateral right esophagus posterior to the right lobe of thethyroid gland seen on image 145 of series 19 there is a 6 mm focus ofavidly enhancing soft tissue which is hypodense to the thyroid parenchymaon the noncontrast imaging and may demonstrate faint washout on the venousphase. There is a focus of additional tissue along the left lateralaspect of the esophagus at the same level which has similar densitycharacteristics measuring approximately 5 mm. Anterior to the cricoidcartilage on the left there is another small focus of tissue with densitycharacteristics which are similar to the thyroid gland seen on image 126of series 19 measuring 4 mm in size. The thyroid parenchyma is homogeneous. No pathologically enlarged lymphnodes are evident within the neck. The laryngeal structures appearunremarkable. The lung apices are clear. The paranasal sinuses andmastoid air cells are clear aside from minor soft tissue thickening at thebase of the right maxillary sinus which may be dental in origin withprominent lucency about the roots of the most posterior remaining rightmaxillary molar tooth. Examination of the bones demonstrates advanceddisc degeneration at C3-4, C4-5, C5-6, and C6-7. No lytic or blastic bonelesions are present. There is multilevel foraminal stenosis fromuncovertebral hypertrophy and spurring. IMPRESSION IMPRESSION 1. 2 soft tissue densities adjacent to the esophagus and posterior to thethyroid as described above demonstrate enhancement characteristics whichmay reflect parathyroid tissue. 2. Small additional focus of enhancing soft tissue anterior to thecricoid on the left is closer to thyroid parenchyma in its enhancementcharacteristics and is more likely reflected to thyroid tissue, althoughan additional focus of parathyroid gland is not excluded. 3. Dental lucency about the most posterior remaining right maxillarymolar tooth with adjacent soft tissue thickening in the paranasal sinus. 4. Advanced disc degeneration and multilevel foraminal stenosis in themid and lower cervical spine. Ramsey Ace MD RAD CT documented in this encounter Visit Diagnoses Diagnosis Primary hyperparathyroidism (HCC)- Primary Primary hyperparathyroidism Hypercalcemia Age-related osteoporosis without current pathological fracture Senile osteoporosis Primary hyperparathyroidism (HCC) Primary hyperparathyroidism documented in this encounter Advance Directives Latest [...] and were consensually agreed upon. Care Teams Government Clerk Relationship Specialty Start Date End Date Vesta Reyes MD [address] [place] [address], [place] [address] PCP - General 08/16/07 documented as of this encounter"
--- OUTSIDE RECORDS SUMMARY | 2023-08-30 05:28 | External Medical Summary | Summary of Care ---
Author Name Unknown Organization [facility] Address [address] [place] [address] Phone [phone] Care Team Providers Care Business Development Name Role Phone Vesta Reyes MD Primary Care Provider + Reason for Visit * Reason Onset Date Comments Test Results 04/06/2023 Encounter Details Date Type Department Care Team (Late st Contact Info) Description 04/06/2023 Telephone [facility], [place] [address] [place] [address] Jose Mendoza MD [address] [place] [address] Test Results Allergies Active Allergy Reactions Criticality Noted Date Comments Pollen 11/05/2021 Hasn't been properly diagnosed, but has allergy symptoms worse in summer documented as of this encounter (statuses as of 04/06/2023) Medications Medication Sig Dispensed Refills Start Date [...] (aspirin enteric coated)Indications: Coronary artery disease involving manzanita coronary artery of manzanita heart without angina pectoris Take 1 tablet by mouth once daily 90 Tablet 3 05/26/2022 Active Pantoprazole Sodium 40 MG Oral Tablet Delayed Release (Protonix)Indicatio ns:Gastritis, presence of bleeding unspecified, unspecified chronicity, unspecified gastritis type Take 1 tablet by mouth once daily 90 Tablet 3 05/26/2022 Active Rosuvastatin Calcium 40 MG Oral Tablet (Crestor)Indication s:Coronary artery disease involving manzanita coronary artery of manzanita heart without angina pectoris,S/P drug eluting coronary [...] as of this encounter (statuses as of 04/06/2023) Active Problems Problem Noted Date Diagnosed Date Prediabetes 11/10/2020 Overview: Per Prediabetes protocol HTN, goal below 140/90 07/06/2019 Dyslipidemia, goal LDL below 70 07/06/2019 Coronary artery disease invo lving manzanita coronary artery of manzanita heart without angina pectoris 05/29/2017 S/P drug eluting coronary stent placement 2017 History of non-ST elevation myocardial infarctio n (NSTEMI) 05/29/2017 Senile osteoporosis 03/10/2017 Gastroesophageal reflux disease without esophagi tis 03/10/2017 documented as of this encounter (statuses as of 04/06/2023) Resolved Problems Problem Noted Date Diagnosed Date [...] as of this encounter (statuses as of 04/06/2023) Immunizations Name Administration Dates Next Due COVID-19 mRNA, LNP-s, No Pre serve, 2-Dose Series ([employer]) 04/16/2021,07/14/2020,06/09/2020 Covid-19, Mrna, Lnp-s, Pf, B ivalent, [...] Influenza, Split, I IV3, With Preserve, Inj 01/31/2014,02/01/2013,01/24/2012,01/01,01/30/2010,01/17/2009,03/05/20,02/08/2007,03/16/2006 01/31/2015 Seasonal Influenza, Trivalen t, Adjuvanted, 65+ [...] encounter Miscellaneous Notes * Telephone Encounter - June Romo LPN - 04/06/2023 2:11 PM EST Spoke to patient to make her aware of Dr Bustamante test results. Patient stated she already has thesescheduled. No further questions * Telephone Encounter - June Romo LPN - 04/06/2023 2:09 PM EST ----- Message from oJse Mendoza MD sent at 04/01/2023 8:39 AM EST ----- Please update pt that I have reviewed her CT neck which probably showed more than enlarged parathyroid glands. I have placed a referral for her to be seen by parathyroid surgeon (ENT) and also to be more specific, I have placed an order for a second parathyroid scan ( Nuclear medicine scan). Thanks documented in this encounter Plan of Treatment Upcoming Encounters Date Type Department Care Team (Late st Contact Info) Description 04/15/2023 12:30 PM EST Appointment Radiology, [place] [address] [place] [address] 04/15/2023 3:30 PM EST Appointment Radiology, [address] [address] 05/03/2023 2:00 PM EST Office Visit Otolaryngology [facility] [address] [place] [address] Nyla Hudson MD [address] [place] [address] 07/06/2023 8:30 AM EST Office Visit Cardiology, [facility] [address] [facility] [place] [address] Arnulfo Arias PA-C [address] [place] [address] 07/14/2023 8:20 AM EDT Telemedicine Endocrinology, [address] [address] Jose Mendoza MD [address] [place] [address] 08/25/2023 9:20 AM EDT Office Visit General Internal Medicine [facility] [address] [facility] [place] [address] Vesta Reyes MD [address] [facility] [place] [place] [address] Health Maintenance Due Date Last Done Comments [...] this encounter Medical Devices Implanted Type Area Process Control Technician Device Identifier Shelf Expiration Date Model / Serial / Lot Lens Intraoc 21.5 - [id number] - [id number] Implanted:Qty: 1 on 06/01/2016 by Scott Mckee MD at OR [facility] Right: Eye [employer] 12/30/2020 [id number] / [id number] / [id number] Lens Intraoc 20.0 - [id number] - [id number] Implanted:Qty: 1 on 06/15/2016 by Scott Mckee MD at OR [facility] Left: Eye [employer] 01/29/2021 [id number] / [id number] / [id number] Tr[employer] Dr[employer] Pin, 2 X100 Mm Implanted:Qty: 1 on 07/01/2017 by Renea Landrum DPM at OR [facility] Left: Foot [employer] 12/30/2018 [id number] / / [id number] documented as of this encounter Advance Directives [...] and were consensually agreed upon. Care Teams Business Development Relationship Specialty Start Date End Date Vesta Reyes MD [address] [place] [address] [place] [address] PCP - General 08/16/07 documented as of this encounter
[2023-08-30 06:00] LABS: Basophils # (auto) 0.01 K/uL (0.00-0.20); Basophils % (auto) 0.1 %; Hemoglobin 11.8 g/dl (12.0-16.0); Immature Granulocytes # (auto) 0.04 K/uL (0.01-0.20); Immature Granulocytes % (auto) 0.6 %; Lymphocytes # (auto) 0.86 K/uL (1.20-3.40); Lymphocytes % (auto) 12.4 %; Mean Corpuscular Hemoglobin 26.9 pg (25.0-34.0); Mean Corpuscular Hgb Conc 31.1 g/dL (32.0-36.0); Mean Corpuscular Volume 86.8 fL (80.0-100.0); Mean Platelet Volume 9.8 fL (9.4-12.4); Monocytes # (auto) 0.13 K/uL (0.11-0.59); Monocytes % (auto) 1.9 %; Neutrophils # (auto) 5.89 K/uL (1.40-6.50); Platelet Count 151 K/uL (130-400); RDW Coefficient of Variation 14.9 % (11.5-14.5); RDW Standard Deviation 47.9 fL (36.4-46.3); Red Blood Count 4.38 M/uL (4.20-5.40); White Blood Count 6.93 K/ul (4.8-10.8)
[2023-08-30 06:13] LABS: BUN Creatinine Ratio 21.6 (10-20); Calcium 8.5 mg/dl (8.6-10.3); Creatinine Clr Calc Pharmacy 75.5 ml/min; Est GFR (African American) 104.5 ml/min; Est GFR (Non-African American) 90.2 ml/min; Magnesium 1.8 mg/dl (1.7-2.4); Potassium 4.3 mmol/L (3.5-5.1)
[2023-08-30 06:58] LABS: Estimated Average Glucose 128 mg/dl; Hemoglobin A1C 6.1 % (4.5-5.6)
[2023-08-30] MEDS: ALBUT/IPRATROP 3MG/0.5MG NEB 3 ML VIAL NEB SCH (07:10)
--- OUTSIDE RECORDS SUMMARY | 2023-08-30 07:15 | External Medical Summary | Summary of Care ---
Author Name Unknown Organization [facility] Address [address] [address] Phone [phone] Care Team Providers Care Life Insurance Specialist Name Role Phone Vesta Reyes MD Primary Care Provider + Reason for Visit * Reason Onset Date Comments FYI 08/29/2023 Encounter Details Date Type Department Care Team (Late st Contact Info) Description 08/29/2023 Telephone General Internal Medicine [facility] [place] [address] [facility] [place] [address] Vesta Reyes MD 200 [place] [address] FYI Allergies Active Allergy Reactions Criticality Noted Date [...] (aspirin enteric coated)Indications:C oronary artery disease involving creek coronary artery of creek heart without angina pectoris Take 1 tablet [...] 08/25/2023 Active Famotidine 20 MG Oral Tablet (Pepcid)Indications: Hiatal hernia TAKE 1 TABLET BY MOUTH AT BEDTIME 30 Tablet 5 08/29/2023 Active Rosuvastatin Calcium 40 MG Oral Tablet (Crestor)Indications :Coronary artery disease involving creek coronary artery of creek heart without angina pectoris,S/P drug eluting coronary stent placement,History of non-ST elevation myocardial infarction (NSTEMI) Take 1 tablet by mouth once daily 90 Tablet 3 08/29/2023 Active documented as of this encounter (statuses as of 08/29/2023) Active Problems Problem Noted Date Diagnosed Date Prediabetes 11/10/2020 Overview: Per Prediabetes protocol HTN, goal below 140/90 07/06/2019 Dyslipidemia, goal LDL below 70 07/06/2019 Coronary artery disease invo lving creek coronary artery of creek heart without angina pectoris 05/29/2017 S/P drug [...] mRNA, LNP-s, No Pre serve, 2-Dose Series ([employer]) 04/16/2021,07/14/2020,06/09/2020 Covid-19, Mrna, Lnp-s, Pf, B ivalent, 30 Mcg, IM, 12 yrs and above ([employer]) 02/09/2022 Pneumococcal Conjugate Vacc, 13 Valent (Prevnar) [...] encounter Miscellaneous Notes * Telephone Encounter - Betty Carroll OSA - 08/29/2023 2:50 PM EDT FYI NO AVAILABLE APPOINTMENTS TODAY SECONDARY TO FEVER, COUGH, CHILLS. SHE IS GOING TO THE . documented in this encounter Plan of Treatment Upcoming Encounters Date Type Department Care Team (Late st Contact Info) Description 01/13/2024 11:00 AM EDT Office Visit Cardiology, [facility] [address] [facility] [place] [address] Arnulfo Arias PA-C [address] [place] [address] 02/29/2024 9:40 AM EDT Office Visit General Internal Medicine [place] [address] [place] [address] Vesta Reyes MD [address] [facility] [place] [address] Health Maintenance Due Date Last Done Comments [...] this encounter Medical Devices Implanted Type Area Labor And Employment Paralegal Device Identifier Shelf Expiration Date Model / Serial / Lot Lens Intraoc 21.5 - [id number] - [id number] Implanted:Qty: 1 on 06/01/2016 by Scott Mckee MD at OR [facility] Right: Eye [employer] 12/30/2020 [id number] / [id number] / [id number] Lens Intraoc 20.0 - [id number] - [id number] Implanted:Qty: 1 on 06/15/2016 by Scott Mckee MD at OR [facility] Left: Eye [employer] 01/29/2021 [id number] / [id number] / [id number] 2.0 Cannulated Screw Implanted:Qty: 1 on 07/01/2017 by Renea Landrum DPM at OR [facility] Left: Foot [employer] [id number] T / / Trim-It Drill Pin, 2 X100 Mm Implanted:Qty: 1 on 07/01/2017 by Renea Landrum DPM at OR [facility] Left: Foot [employer] 12/30/2018 [id number] / / [id number] documented as of this encounter Advance Directives [...] and were consensually agreed upon. Care Teams Life Insurance Specialist Relationship Specialty Start Date End Date Vesta Reyes MD [address] [facility] [place] [address] PCP - General 08/16/07 documented as of this encounter
[2023-08-30] MEDS: ACETAMINOPHEN 325 MG TAB PO PRN (07:33)
[2023-08-30] MEDS: predniSONE 20 MG TAB PO SCH (08:51)
[2023-08-30] MEDS: CYANOCOBALAMIN (B-12) 500 MCG TABLET PO SCH (08:51)
[2023-08-30] MEDS: LOSARTAN POTASSIUM 25 MG TAB PO SCH (08:51)
[2023-08-30] MEDS: ASCORBIC ACID 500 MG TAB PO SCH (08:51)
[2023-08-30] MEDS: ROSUVASTATIN CALCIUM 20 MG TAB PO SCH (08:52)
[2023-08-30] MEDS: ASPIRIN 81 MG ECTAB PO SCH (08:52)
[2023-08-30] MEDS: CHOLECALCIFEROL 25 MCG (1000 UNITS) TAB PO SCH (08:52)
[2023-08-30] MEDS: PANTOprazole 40 MG TAB PO SCH (08:52)
[2023-08-30] MEDS: METOPROLOL SUCC 25MG EXT REL TAB PO SCH (08:52)
[2023-08-30] MEDS: FLUTICASONE PROPIONATE NA SPR 16 GM BTL SCH (10:34)
[2023-08-30] MEDS: ENOXAPARIN INJ 40 MG/0.4 ML SYR SQ SCH (10:34)
[2023-08-30] MEDS: DOXYCYCLINE HYCLATE 100 MG CAP PO SCH (10:34)
--- NOTE | 2023-08-30 12:52 | Hospitalist Progress Note ---
Date of Service August 30, 2023 Assessment & Plan (1) Acute bronchitis: Plan: 83-year-old female with past medical history significant for dyslipidemia, prediabetes, CAD status post stent, hypertension, GERD, osteoporosis, comes because of not feeling well for about 2 to 3 days ,having runny nose which is improved currently, having cough with yellowish phlegm and high fevers ,headache, body aches, poor appetite and nausea and went to urgent care and was told that she has pneumonia and sent here.In the ER she was positive for entero/rhinovirus and she was saturating 88% on room air and with 2 L oxygen saturating okay. Acute bronchitis Transient Entero-/rhinovirus infection --CXR:Cardiomegaly with no active disease in the chest. Hiatal hernia. -- BioFire + Entero-/rhinovirus --Droplet precautions Continue doxycycline, prednisone, nebs Will obtain 2 step prior to discharge Prediabetes HbA1c 6.1 H/O CAD s/p stent Continue aspirin, metoprolol and statin Hyperlipidemia Continue statin Hypertension Continue losartan and metoprolol succinate monitor GERD On famotidine and Protonix DVT prophylaxis Lovenox SQ Code Status Full code Admission and Anticipated Discharge Date Admission Date: August 29, 2023 Subjective Patient is seen and examined at bedside States feeling a lot better today Nausea, headache resolved States having minimal cough but otherwise feels well Denies any chest pain, dyspnea Saturating well on room air Prefers to be discharged home today Review of Systems Review of Systems: All systems reviewed & are unremarkable except as noted in Subjective Physical Exam Physical Exam: Physical Exam: Vitals signs as noted above General Appearance:Moderately built and nourished, no apparent distress Head: normocephalic, Atraumatic Eyes: normal inspection, EOMI Neck: supple, Trachea midline Respiratory/Chest: Decreased breath sounds, minimal basal crackles, No accessory muscle use Cardiovascular: S1, S2, +murmur Abdomen/GI:Soft, Non tender, Bowel sounds present Extremities/Musculoskeletal:normal inspection, no edema Neurologic/Psych:AAOX3, grossly no focal neurological deficits Skin: normal color, warm Results & Data Results & Data Vital Signs (Past 12 Hours) Vital Signs Temp Pulse Pulse Pulse Resp BP Pulse Ox 08/30/23 12:07 36.6 C 81 16 138/73 91 08/30/23 11:58 08/30/23 11:04 81 18 91 04/30/24 08:03 71 08/30/23 07:50 36.7 C 80 16 136/66 95 08/30/23 07:11 76 18 91 08/30/23 02:49 36.5 C 75 18 115/69 90 08/30/23 01:33 08/30/23 01:33 36.5 C 72 18 123/71 93 08/30/23 01:04 69 O2 Del Method 08/30/23 12:07 Room Air 08/30/23 11:58 Room Air 08/30/23 11:04 Room Air 08/30/23 08:03 08/30/23 07:50 Room Air 08/30/23 07:11 Room Air 08/30/23 02:49 Room Air 08/30/23 01:33 Room Air 08/30/23 01:33 Room Air 08/30/23 01:04 Laboratory Results Short CBC 08/29/23 08/30/23 Range/Units 17:48 05:36 WBC 10.79 6.93 (4.8-10.8) K/ul Hgb 13.4 11.8 L (12.0-16.0) g/dl Hct 41.3 38.0 (37.0-47.0) % Plt Count 165 151 (130-400) K/uL [facility] 08/29/23 08/30/23 17:48 05:36 Sodium 137 138 Potassium 4.1 4.3 Chloride 103 107 Carbon Dioxide 27 26 BUN 12 11 Creatinine 0.64 0.51 L Glucose 119 H 184 H Calcium 9.1 8.5 L Liver Function 08/29/23 Range/Units 17:48 Total Bilirubin 1.2 H (0.2-1.0) mg/dl AST 17 (13-39) U/L ALT 14 (7-52) U/L Alkaline Phosphatase 100 (34-104) U/L Albumin 4.4 (3.4-5.0) gm/dl Urine 08/29/23 Range/Units 19:55 Urine Color Yellow Urine Appearance Clear (Clear) Urine pH 5.5 (4.5-7.5) Ur Specific [place] 1.014 (1.000-1.030) Urine Protein Trace H (Negative) Urine Glucose (UA) Negative (Negative)
--- NOTE | 2023-08-30 13:28 | Discharge Summary ---
Date of Service August 30, 2023 Admission HPI Per Admitting Provider 83-year-old female with past medical history significant for dyslipidemia, prediabetes, CAD status post stent, hypertension, GERD, osteoporosis, comes because of not feeling well for about 2 to 3 days ,having runny nose which is improved currently, having cough with yellowish phlegm and high fevers ,headache, body aches, poor appetite and nausea and went to urgent care and was told that she has pneumonia and sent here.In the ER she was positive for entero/rhinovirus and she was saturating 88% on room air and with 2 L oxygen saturating okay. Resting comfortably. Able to give her history. Is very hard of hearing. Denies blurred vision. Denies any chest pain. No abdominal pain. Normal bowel and bladder movements. Hemodynamics are okay. Past med history. As mentioned above Past surgical history. Bunion correction left side. . Colonoscopy. Cystoscopy. EGD. EGD with biopsy. Parathyroidectomy. Laparoscopic cholecystectomy. Removal of ovary. Bilateral cataract surgery. Repair of left hammertoe. Total hysterectomy. Cardiac stent placement. Social history. . No smoking. Alcohol occasional. No drug use. Family history. Mother had arthritis. Angioplasty. Hypertension. Depression. Thyroid disorder. Father had prostate cancer. Heart disorder. Alzheimer's. Sister had breast cancer. CLL. Admission Exam Per Admitting Provider General-Not in distress Head- atraumatic Eyes- PERRL. ENT- oropharynx clear Neck- supple, no JVD. Lungs- clear to auscultation mild bibasilar rhonchi? Heart- regular rhythm; no murmur, no gallop. Abdomen- normal bowel sounds, soft, nontender, no distension. Extremities- no pretibial edema, no erythema seen Neuro- alert, oriented ,PERRL, no facial palsy; no dysarthria; moves extremities. Principal Diagnosis Acute bronchitis Entero-/rhinovirus infection Prediabetes Discharge Data Allergies Allergy/AdvReac Type Severity Reaction Status Date / Time pollen extracts Allergy Unknown Verified 08/29/23 21:03 Consultations 08/29/23 21:13 ED Decision to Admit Stat Procedures Performed Laboratory Results WBC 6.93 K/ul (4.8-10.8) 08/30/23 05:36 RBC 4.38 M/uL (4.20-5.40) 08/30/23 05:36 Hgb 11.8 g/dl (12.0-16.0) L 08/30/23 05:36 Hct 38.0 % (37.0-47.0) 08/30/23 05:36 MCV 86.8 fL (80.0-100.0) 08/30/23 05:36 MCH 26.9 pg (25.0-34.0) 08/30/23 05:36 MCHC 31.1 g/dL (32.0-36.0) L 08/30/23 05:36 RDW Std Deviation 47.9 fL (36.4-46.3) H 08/30/23 05:36 RDW Coeff of Khadra 14.9 % (11.5-14.5) H 08/30/23 05:36 Plt Count 151 K/uL (130-400) 08/30/23 05:36 MPV 9.8 fL (9.4-12.4) 08/30/23 05:36 Immature Gran % (Auto) 0.6 % 08/30/23 05:36 Neut % (Auto) 85.0 % 08/30/23 05:36 Lymph % (Auto) 12.4 % 08/30/23 05:36 [place] % (Auto) 1.9 % 08/30/23 05:36 Eos % (Auto) 0.0 % 08/30/23 05:36 Baso % (Auto) 0.1 % 08/30/23 05:36 Neut # (Auto) 5.89 K/uL (1.40-6.50) 08/30/23 05:36 Lymph # (Auto) 0.86 K/uL (1.20-3.40) L 08/30/23 05:36 [place] # (Auto) 0.13 K/uL (0.11-0.59) 08/30/23 05:36 Eos # (Auto) 0.00 K/uL (0.00-0.50) 08/30/23 05:36 Baso # (Auto) 0.01 K/uL (0.00-0.20) 08/30/23 05:36 Immature Gran # (Auto) 0.04 K/uL (0.01-0.20) 08/30/23 05:36 PT 11.1 Seconds (9.0-12.0) 08/29/23 17:48 INR 1.0 (0.9-1.1) 08/29/23 17:48 APTT 27 Seconds (21-31) 08/29/23 17:48 PTT Ratio 1.0 08/29/23 17:48 Sodium 138 mmol/L (136-145) 08/30/23 05:36 Potassium 4.3 mmol/L (3.5-5.1) 08/30/23 05:36 Chloride 107 mmol/L (98-107) 08/30/23 05:36 Carbon Dioxide 26 mmol/L (21-32) 08/30/23 05:36 Anion Gap 5 (3-11) 08/30/23 05:36 BUN 11 mg/dl (6-23) 08/30/23 05:36 Creatinine 0.51 mg/dl (0.6-1.2) L 08/30/23 05:36 Est Cr Clr Drug Dosing 75.5 ml/min 08/30/23 05:36 Est GFR ( Amer) 104.5 ml/min 08/30/23 05:36 Est GFR (Non-Af Amer) 90.2 ml/min 08/30/23 05:36 BUN/Creatinine Ratio 21.6 (10-20) H 08/30/23 05:36 Glucose 184 mg/dl (70-99(Fasting)) H 08/30/23 05:36 Estimat Average Glucose 128 mg/dl 08/30/23 05:36 Hemoglobin A1c 6.1 % (4.5-5.6) H 08/30/23 05:36 Calcium 8.5 mg/dl (8.6-10.3) L 08/30/23 05:36 Magnesium 1.8 mg/dl (1.7-2.4) 08/30/23 05:36 Total Bilirubin 1.2 mg/dl (0.2-1.0) H 08/29/23 17:48 AST 17 U/L (13-39) 08/29/23 17:48 ALT 14 U/L (7-52) 08/29/23 17:48 Alkaline Phosphatase 100 U/L (34-104) 08/29/23 17:48 Troponin I High Sens 5.1 pg/ml (0-14) 08/29/23 17:48 Total Protein 7.1 gm/dl (6.0-8.3) 08/29/23 17:48 Albumin 4.4 gm/dl (3.4-5.0) 08/29/23 17:48 Globulin 2.7 gm/dl (2.5-4.0) 08/29/23 17:48 Albumin/Globulin Ratio 1.6 (0.9-2) 08/29/23 17:48 Urine Color Yellow 08/29/23 19:55 Urine Appearance Clear (Clear) 08/29/23 19:55 Urine pH 5.5 (4.5-7.5) 08/29/23 19:55 Ur Specific [place] 1.014 (1.000-1.030) 08/29/23 19:55 Urine Protein Trace (Negative) H 08/29/23 19:55 Urine Glucose (UA) Negative (Negative) 08/29/23 19:55 Urine Ketones Negative (Negative) 08/29/23 19:55 Urine Blood 1+ (Negative) H 08/29/23 19:55 Urine Nitrite Negative (Negative) 08/29/23 19:55 Urine Bilirubin Negative (Negative) 08/29/23 19:55 Urine Urobilinogen Negative (Negative) 08/29/23 19:55 Ur Leukocyte Esterase Trace (Negative) H 08/29/23 19:55 Urine WBC (Auto) 0-5 /hpf (0-5) 08/29/23 19:55 Urine RBC (Auto) 6-10 /hpf (0-2) H 08/29/23 19:55 U Hyaline Cast (Auto) 0-2 /lpf (0-2) 08/29/23 19:55 U Epithel Cells (Auto) 0-2 /hpf (0-2) 08/29/23 19:55 Urine Bacteria (Auto) None Seen (None Seen) 08/29/23 19:55 Adenovirus (PCR) Not Detected (NotDetected) 08/29/23 18:06 B. pertussis DNA (PCR) Not Detected (NotDetected) 08/29/23 18:06 B.parapertussis DNA PCR Not Detected (NotDetected) 08/29/23 18:06 C. pneumoniae DNA (PCR) Not Detected (NotDetected) 08/29/23 18:06 Coronavirus OC43 (PCR) Not Detected (NotDetected) 08/29/23 18:06 Coronavirus HKU1 (PCR) Not Detected (NotDetected) 08/29/23 18:06 Coronavirus 229E (PCR) Not Detected (NotDetected) 08/29/23 18:06 SARS-CoV-2 (PCR) Not Detected (NotDetected) 08/29/23 18:06 Coronavirus NL63 (PCR) Not Detected (NotDetected) 08/29/23 18:06 Human Metapneumovir PCR Not Detected (NotDetected) 08/29/23 18:06 Influenza Type A (PCR) Not Detected (NotDetected) 08/29/23 18:06 Influenza Type B (PCR) Not Detected (NotDetected) 08/29/23 18:06 M. pneumoniae (PCR) Not Detected (NotDetected) 08/29/23 18:06 Parainfluenza 1 (PCR) Not Detected (NotDetected) 08/29/23 18:06 Parainfluenza 2 (PCR) Not Detected (NotDetected) 08/29/23 18:06 Parainfluenza 3 (PCR) Not Detected (NotDetected) 08/29/23 18:06 Parainfluenza 4 (PCR) Not Detected (NotDetected) 08/29/23 18:06 RSV (PCR) Not Detected (NotDetected) 08/29/23 18:06 Entero/Rhino (PCR) DETECTED (NotDetected) A 08/29/23 18:06 Impressions Chest X-Ray 08/29/23 17:50 SINGLE VIEW CHEST CLINICAL HISTORY: Atypical chest pain. FINDINGS: An AP, portable, upright chest radiograph is compared to study dated 09/29/2018. There is a moderate to large hiatal hernia. The heart is enlarged. The pulmonary vasculature is noncongested. Chronic interstitial thickening is similar to previous. There is bibasilar scarring/atelectasis. No airspace consolidation or large pleural effusion is identified. No pneumothorax is seen. The skeletal structures are osteopenic. The bony thorax is grossly intact. IMPRESSION: 1. Cardiomegaly with no active disease in the chest. 2. Hiatal hernia. ACT 112: Negative or not required by law. Electronically signed by: Cricket Keller M.D. 08/29/2023 6:21 PM Hospital Course (1) Acute bronchitis: 83-year-old female with past medical history significant for dyslipidemia, prediabetes, CAD status post stent, hypertension, GERD, osteoporosis, comes because of not feeling well for about 2 to 3 days ,having runny nose which is improved currently, having cough with yellowish phlegm and high fevers ,headache, body aches, poor appetite and nausea and went to urgent care and was told that she has pneumonia and sent here.In the ER she was positive for entero/rhinovirus and she was saturating 88% on room air and with 2 L oxygen saturating okay. Acute bronchitis Transient Entero-/rhinovirus infection --CXR:Cardiomegaly with no active disease in the chest. Hiatal hernia. -- BioFire + Entero-/rhinovirus --Droplet precautions Continue doxycycline, prednisone, nebs 2 step: did not qualify for oxygen Prediabetes HbA1c 6.1 H/O CAD s/p stent Continue aspirin, metoprolol and statin Hyperlipidemia Continue statin Hypertension Continue losartan and metoprolol succinate monitor GERD On famotidine and Protonix DVT prophylaxis Lovenox SQ Code Status Full code Total Time Total Time Spent Total Time Spent (In Minutes): 57 minutes Discharge Plan Discharge Items Patient Disposition: Home - Self-Care Reason For Visit: ACUTE BRONCHITIS Discharge Diagnosis: Acute bronchitis Entero-/rhinovirus infection Prediabetes Condition on Discharge: Fair Activity: Per Instructions section Exercise/Sports: Wait until after follow-up appointment Non-emergency contact: Primary Care Provider Call non-emergency contact if: you have any medication questions, your symptoms worsen, your pain is concerning for you and you have a fever Follow-up/Referrals: Vesta Reyes MD [Primary Care Provider] - (Date & Time 09/05/2023 10:20 AM Provider Michelle Morales MD Department General Internal Medicine [facility] ) Diet: Heart Healthy Addtl Attending Provider Instructions: Follow-up with your primary care physician in 1 week -- Complete the antibiotic doxycycline, prednisone taper course as prescribed. -- Prednisone taper course Start taking prednisone 30 mg daily for 2 days, then take 20 mg daily for 2 days, then take 10 mg daily for 2 days and stop --Your final blood cultures are pending at the time of discharge. Follow-up with your physician for results. Seek immediate medical attention if your symptoms reoccur or worsen Please take all medications as instructed on discharge list below. Please call if you have any questions or problems. You can reach a [facility] hospitalist on duty at [facility] 24 hours a day by calling [phone] Pending Studies at Discharge: Yes Studies:: Blood Cultures Stand-Alone Forms: My [facility], Smoking Cessation Medications and DC Order Prescriptions: New doxycycline hyclate 100 mg Capsule 100 mg PO BID Qty: 10 0RF prednisone 10 mg tablet 10 mg PO UD Qty: 12 0RF Rx Instructions: Take prednisone 30 mg daily for 2 days, then take 20 mg daily for 2 days, then take 10 mg daily for 2 days and stop albuterol sulfate 90 mcg/actuation HFA aerosol inhaler 1 inh inhalation Q6H PRN (Reason: shortness of breath or wheezing) Qty: 6.7 0RF Continued cyanocobalamin (vitamin B-12) [Vitamin B-12] 1,000 mcg Tablet 1,000 mcg PO DAILY aspirin 81 mg tablet,delayed release (DR/EC) 81 mg PO DAILY famotidine 20 mg tablet 20 mg PO HS ascorbic acid (vitamin C) [Vitamin C] 500 mg Tablet 500 mg PO BID pantoprazole 40 mg tablet,delayed release (DR/EC) 40 mg PO DAILY losartan 25 mg tablet 25 mg PO QAM metoprolol succinate 25 mg tablet extended release 24 hr 25 mg PO DAILY fluticasone propionate [Flonase] 50 mcg/actuation [place],Suspension 2 spray INTRANASAL DAILY Rx Instructions: administer into each nostril loratadine [Claritin] 10 mg Tablet 10 mg PO DAILY PRN (Reason: allergies) rosuvastatin 40 mg tablet 40 mg PO DAILY cholecalciferol (vitamin D3) [Vitamin D3] 25 mcg (1,000 unit) Tablet 25 mcg PO DAILY Discharge Orders: Discharge Order (Routine); Ordered 08/30/23 Ordered By: Allan Pena/Other Patient Handouts: A1C Admission Data Admit Date/Time: 08/29/23 22:34 Attending Provider: Allan Sharma Admit Provider: Art Cook Primary Care Provider: Vesta Reyes Other Providers: Art Cook
--- NOTE | 2023-08-30 15:03 | Electrocardiogram Report ---
Test Reason : Blood Pressure : / mmHG Vent. Rate : 090 BPM Atrial Rate : 090 BPM P-R Int : 150 ms QRS Dur : 066 ms QT Int : 362 ms P-R-T Axes : 041 056 082 degrees QTc Int : 442 ms Normal sinus rhythm Anterior infarct , age undetermined , may be lead placement Abnormal ECG When compared with ECG of 29-SEP-2017 15:12, Anterior infarct is now Present Confirmed by Garrett Welch ([id number]) on 08/30/2023 3:03:46 PM Referred By: REFERRED SELF Confirmed By:Garrett Welch
--- NOTE | 2023-08-30 15:49 | Electrocardiogram Report ---
Test Reason : Blood Pressure : / mmHG Vent. Rate : 072 BPM Atrial Rate : 072 BPM P-R Int : 152 ms QRS Dur : 076 ms QT Int : 444 ms P-R-T Axes : 057 057 072 degrees QTc Int : 486 ms Sinus rhythm with Premature atrial complexes Anteroseptal infarct (cited on or before 29-AUG-2023) Abnormal ECG When compared with ECG of 29-AUG-2023 17:47, (unconfirmed) Premature atrial complexes are now Present Questionable change in initial forces of Septal leads Confirmed by Garrett Welch ([id number]) on 08/30/2023 3:49:12 PM Referred By: REFERRED SELF Confirmed By:Garrett Welch
[2023-08-30] MEDS ORDERED: FAMOTIDINE 20 MG TAB PO SCH (21:00)
[2023-09-01 05:59] LABS: A calco-baum cmplx NotReported Not Detected (NotDetected); Bact fragilis Not Reported Not Detected (NotDetected); Blood Culture Id Panel See PCR Comment (NotDetected); C auris Not Reported Not Detected (NotDetected); Calbicans Not Reported Not Detected (NotDetected); Candida glabrata Not Reported Not Detected (NotDetected); Candida krusei Not Reported Not Detected (NotDetected); Cneoformans/gatti Not Reported Not Detected (NotDetected); Cparapsilosis Not Reported Not Detected (NotDetected); E cloacae compx Not Reported Not Detected (NotDetected); Efaecalis Not Reported Not Detected (NotDetected); Efaecium Not Reported Not Detected (NotDetected); Enterobacterales Not Reported Not Detected (NotDetected); Escherichia coli Not Reported Not Detected (NotDetected); H influenzae Not Reported Not Detected (NotDetected); K aerogenes Not Reported Not Detected (NotDetected); Koxytoca Not Reported Not Detected (NotDetected); Kpneumoniae grp Not Reported Not Detected (NotDetected); Lmonocyt Not Reported Not Detected (NotDetected); N meningitidis Not Reported Not Detected (NotDetected); P aeruginosa Not Reported Not Detected (NotDetected); Proteus spp Not Reported Not Detected (NotDetected); Salmonella spp Not Reported Not Detected (NotDetected); Smarcescens Not Reported Not Detected (NotDetected); Staph lugdunensis Not Reported Not Detected (NotDetected); Staphaureus Not Reported Not Detected (NotDetected); Staphepi Not Reported Not Detected (NotDetected); Staphylococcus spp. DETECTED (NotDetected); Stenmaltophilia Not Reported Not Detected (NotDetected); Strep agal(GrpB) Not Reported Not Detected (NotDetected); Strep pneum Not Reported Not Detected (NotDetected); Strep pyog (GrpA) Not Reported Not Detected (NotDetected); Strep spp Not Reported Not Detected (NotDetected)
[2023-09-01 06:42] LABS: Staph spp. Not Reported DETECTED (NotDetected)
--- NOTE | 2023-09-01 06:44 | Communication Note ---
Date of Service: September 01, 2023 Made aware by microbiological laboratory technician of abnormal blood CS result. Patient discharged from hospital last 08/29. ONE OUT OF TWO BLOOD CULTURES COLLECTED ON 08/27 SHOWING GRAM POSITIVE COCCI IN CLUSTERS. BIOFIRE IDENTIFIED STAPHYLOCOCCUS BUT NOT A SPECIES. Results forwarded to Dr. Sharma (patient's attending physician from recent confinement).
--- NOTE | 2023-09-01 09:24 | Communication Note ---
Date of Service: September 01, 202305/05 blood cx growing gran positive Cocci in clusters. ? Contamination. Will inform PCP to follow up on clultures
== END 2023-08-30 14:51 | disposition home or self-care (01) | DRG 203 ==
LOC: ED 17:34 → 2W 22:34

== ENCOUNTER 2024-06-11 15:56 | Inpatient (IN) ==
--- NOTE | 2024-06-11 16:33 | Emergency Department Note ---
Impression & Plan Fall from standing, Acute right ankle pain, Dislocation of ankle, right, closed, Fracture of tibia and fibula ED Provider Note HISTORY OF PRESENT ILLNESS: Patient is an 84-year-old female presenting with right ankle pain after a fall. Patient reports she was walking down her staircase outside to go fill her bird feeder when she got to the last step and slipped and fell backwards, landing on her buttock. She reports immediate pain and deformity to her right ankle. States that she had to crawl and try to get back up her stairs and was down on the ground for about 30 minutes prior to her hearing her call for help. She denies striking her head or loss of consciousness. She is on a baby aspirin daily but no other anticoagulation. Currently complaining of significant pain to the right ankle. Denies any numbness or tingling in the foot. Denies any chest pain, shortness of breath or lightheadedness prior to her fall. ROS: as above PHYSICAL EXAM: Constitutional: Patient appears in no acute distress. HENT: Head: Normocephalic and atraumatic. Eyes: EOMI, PERRL Mouth/Throat: Mucous membranes moist. Neck: Trachea midline. Neck supple. Cardiovascular: RRR, No murmurs, rubs or gallops. Intact distal pulses. Pulmonary/Chest: No respiratory distress. Breath sounds clear and equal bilaterally. No wheezes or rales. No chest wall tenderness to palpation. Abdominal: Abdomen soft, no tenderness, rebound or guarding. Musculoskeletal: - RLE: Obvious swelling and deformity to the right ankle. Patient has significant tenderness and swelling to the medial malleolus. Intact DP pulse. Patient is able to wiggle toes. Sensation intact to light touch about the nerve distributions of the foot. Unable to range the ankle secondary to pain. Patient is able to straight leg raise on the right and flex and extend at the knee. Skin: Warm and dry. No rash, erythema, pallor or cyanosis Psychiatric: Appropriate mood and affect for situation. Neurological: Alert and keenly responsive. CN II-XII grossly intact, moving all extremities equally and fully. MDM: - Vitals signs showed hypertension - History obtained via patient. History as above. - Chronic conditions affecting care: CAD (s/p PCI); HTN; GERD; HLD; osteoporosis - Differential diagnoses include, but are not limited to: Ankle dislocation; ankle fracture; vascular injury - Order placed for continuous cardiac monitoring. At this time, monitor showed rate of 75 bpm with normal sinus rhythm, per my interpretation. - External medical records reviewed. Discharge summary dated was reviewed. Patient was admitted that time for acute bronchitis and rhino enteroinfection. - EKG interpreted by myself showed normal sinus rhythm. Rate 61 bpm. QT 434. No acute ischemic changes. - Laboratory workup interpreted by myself showed normal WBC; stable electrolytes; normal troponin - CXR negative for pneumonia, per my interpretation - Xray right tib-fib shows distal tib-fib fractures with dislocation of the ankle. Proximal tibia appears intact, per my interpretation - Xray right ankle showed distal tib-fib fractures with dislocation of the ankle, per my interpretation. - Patient initially given 50 mcg IV fentanyl for pain control - Given an additional 50 mcg IV fentanyl for pain control and for reduction of her dislocation. Please see procedure note below. She was placed in a posterior short leg splint and ankle stirrup. Please see procedure notes below. - Post-reduction xray shows improved alignment, per my interpretation. However, radiology notes that it is still minimally subluxed at the tibiotalar joint. - Discussed case with orthopedic surgeon on-call, Dr. Doherty, at 19:52. He recommends admission to the medicine service with plan for potential OR tomorrow. Recommends n.p.o. at midnight. - Discussion was had with pillowcase folder about patient's case and need for admission - Hospitalist, Dr. Jain, consulted for admission - [facility] PROCEDURES: 1. Ankle dislocation reduction Indication: Right ankle dislocation Verbal consent obtained. Risks and benefits were explained with the usual customary discussion. Neurovascular examination before the procedure revealed patient was able to wiggle toes and had sensation intact to light touch throughout the nerve distributions of her foot. The patient's knee was flexed to 90 degrees. Traction was pulled by civil technician and I pulled countertraction at the patient's ankle with manipulation of the ankle medially to realign the dislocation. This resulted in an easy reduction without complication. Neurovascular examination after the procedure revealed the patient was still able to wiggle her toes and had sensation intact to light touch throughout the nerve distributions of her foot. Intact DP pulse. Patient had significant relief and tolerated the procedure well. 2. Splinting Indication: Right ankle fracture and dislocation Verbal consent obtained. Risks and benefits were explained with the usual customary discussion. The injured extremity was identified. The patient was prepped and measured for the placement of a short leg posterior Ortho-Glass splint and a ankle stirrup ortho-glass splint. Splint applied in the standard fashion over a layer of webril and secured using an elastic bandage. Set into a position of function. Normal neurovascular status after placement verified by me. The patient tolerated the procedure well and the care of the splint was discussed with the patient/family. No complications. ASSESSMENT AND PLAN: Diagnosis: Fall from standing; acute right ankle pain; closed dislocation of right ankle; fracture of tibia and fibula Plan: Admit Past Med/Surg History Problem List (Updated 09/30/23 @ 00:07 by Rao Schneider) Fracture of tibia and fibula (Acute) Dislocation of ankle, right, closed (Acute) Acute right ankle pain (Acute) Fall from standing (Acute) Acute bronchitis Osteoporosis (Chronic) GERD (gastroesophageal reflux disease) (Chronic) Rhinovirus infection (Acute) Flu-like symptoms (Acute) Hypoxia (Acute) SRAVAN (iron deficiency anemia) (Chronic) CAD (coronary artery disease) (Chronic) "03/2017-NSTEMI, S/P ROMAN to LAD" Hammertoe (Chronic) S/P bunionectomy (Chronic) S/P cholecystectomy (Chronic) History of cataract surgery (Chronic) History of hysterectomy (Chronic) Medical History Osteoporosis GERD (gastroesophageal reflux disease) Social History Smoking Status: Never smoker Hx Alcohol Use: No Hx Substance Use: No Preferred Language: Macedonian Communication Ability: Effective Electrician Second Required: No Beliefs That Will Affect Care: None Current Living Situation: Spouse Feels Safe at Home: Yes Assistive Devices: None Allergies Allergies Allergy/AdvReac Type Severity Reaction Status Date / Time pollen extracts Allergy Unknown Verified 08/29/23 21:03 Home Meds Home Medications Medication Instructions Recorded Confirmed ascorbic acid (vitamin C) 500 mg 500 mg PO BID 08/29/23 08/29/23 tablet (Vitamin C) aspirin 81 mg tablet,delayed 81 mg PO DAILY 08/29/23 08/29/23 release cholecalciferol (vitamin D3) 25 25 mcg PO DAILY 08/29/23 08/29/23 mcg (1,000 unit) tablet (Vitamin D3) cyanocobalamin (vitamin B-12) 1,000 mcg PO DAILY 08/29/23 08/29/23 1,000 mcg tablet (Vitamin B-12) famotidine 20 mg tablet 20 mg PO HS 08/29/23 08/29/23 fluticasone propionate 50 2 spray intranasal DAILY 08/29/23 08/29/23 mcg/actuation nasal spray,suspension loratadine 10 mg tablet (Claritin) 10 mg PO DAILY PRN allergies 08/29/23 08/29/23 losartan 25 mg tablet 25 mg PO QAM 08/29/23 08/29/23 metoprolol succinate 25 mg 25 mg PO DAILY 08/29/23 08/29/23 tablet,extended release 24 hr pantoprazole 40 mg tablet,delayed 40 mg PO DAILY 08/29/23 08/29/23 release rosuvastatin 40 mg tablet 40 mg PO DAILY 08/29/23 08/29/23 Previous Rx's Medication Instructions Recorded albuterol sulfate 90 mcg/actuation 1 inh inhalation Q6H PRN shortness 08/30/23 aerosol inhaler of breath or wheezing #6.7 grams doxycycline hyclate 100 mg capsule 100 mg PO BID #10 caps 08/30/23 prednisone 10 mg tablet 10 mg PO UD #12 tabs 08/30/23 Results & Data (ED) Vital Signs Vital Signs - 24 hr 06/11/24 16:03 06/11/24 16:03 06/11/24 16:27 Temperature 36.8 C 36.8 C Temperature Source Oral Oral Pulse Rate 75 68 Pulse Rate [Apical] 75 Respiratory Rate 17 17 Respiratory Effort / Characteristics Non-Labored Spontaneous Non-Labored Spontaneous Respiratory Depth Normal Normal Respiratory Pattern Blood Pressure 189/147 H Blood Pressure [Right Arm] 189/147 H Blood Pressure Mean 161 Blood Pressure Mean [Right Arm] 161 Blood Pressure Position Semi-fowlers Blood Pressure Position [Right Arm] Semi-fowlers Pulse Oximetry 97 97 Oxygen Delivery Method Room Air Room Air Sepsis Recent Fever Within 48 Hours No Sepsis New/Unexplained Change in Mental Status N/A Sepsis Action Taken by Nursing No Action Required 06/11/24 17:02 06/11/24 17:14 06/11/24 19:25 Temperature Temperature Source Pulse Rate 63 Pulse Rate [Apical] 62 65 Respiratory Rate 17 17 21 Respiratory Effort / Characteristics Non-Labored Spontaneous Non-Labored Spontaneous Respiratory Depth Normal Normal Respiratory Pattern Regular Blood Pressure Blood Pressure [Right Arm] 162/83 H 143/69 H Blood Pressure Mean Blood Pressure Mean [Right Arm] 109 93 Blood Pressure Position Blood Pressure Position [Right Arm] Semi-fowlers Pulse Oximetry 95 96 100 Oxygen Delivery Method Room Air Room Air Room Air Sepsis Recent Fever Within 48 Hours Sepsis New/Unexplained Change in Mental Status Sepsis Action Taken by Nursing 06/11/24 20:22 06/11/24 21:10 Temperature Temperature Source Pulse Rate 56 L Pulse Rate [Apical] 61 Respiratory Rate 20 Respiratory Effort / Characteristics Non-Labored Spontaneous Respiratory Depth Normal Respiratory Pattern Regular Blood Pressure Blood Pressure [Right Arm] 163/62 H Blood Pressure Mean Blood Pressure Mean [Right Arm] 95 Blood Pressure Position Blood Pressure Position [Right Arm] Pulse Oximetry Oxygen Delivery Method Sepsis Recent Fever Within 48 Hours Sepsis New/Unexplained Change in Mental Status Sepsis Action Taken by Nursing Laboratory Data 06/11/24 16:00 06/11/24 16:00 Lab Results 06/11/24 Range/Units 16:00 WBC 7.91 (4.8-10.8) K/ul RBC 4.60 (4.20-5.40) M/uL Hgb 12.2 (12.0-16.0) g/dl Hct 38.8 (37.0-47.0) % MCV 84.3 (80.0-100.0) fL MCH 26.5 (25.0-34.0) pg MCHC 31.4 L (32.0-36.0) g/dL RDW Std Deviation 46.4 H (36.4-46.3) fL RDW Coeff of Khadra 15.3 H (11.5-14.5) % Plt Count 235 (130-400) K/uL MPV 9.5 (9.4-12.4) fL Immature Gran % (Auto) 0.3 % Neut % (Auto) 65.8 % Lymph % (Auto) 25.2 % [place] % (Auto) 4.9 % Eos % (Auto) 3.3 % Baso % (Auto) 0.5 % Neut # (Auto) 5.21 (1.40-6.50) K/uL Lymph # (Auto) 1.99 (1.20-3.40) K/uL [place] # (Auto) 0.39 (0.11-0.59) K/uL Eos # (Auto) 0.26 (0.00-0.50) K/uL Baso # (Auto) 0.04 (0.00-0.20) K/uL Immature Gran # (Auto) 0.02 (0.01-0.20) K/uL Sodium 138 (136-145) mmol/L Potassium 3.8 (3.5-5.1) mmol/L Chloride 103 (98-107) mmol/L Carbon Dioxide 28 (21-32) mmol/L Anion Gap 7 (3-11) BUN 15 (6-23) mg/dl Creatinine 0.65 (0.6-1.2) mg/dl Est Cr Clr Drug Dosing 61.1 ml/min eGFR 87.85 BUN/Creatinine Ratio 23.1 H (10-20) Glucose 108 H (70-99(Fasting)) mg/dl Calcium 9.7 (8.6-10.3) mg/dl Magnesium 1.9 (1.7-2.4) mg/dl Total Bilirubin 0.7 (0.2-1.0) mg/dl AST 17 (13-39) U/L ALT 14 (7-52) U/L Alkaline Phosphatase 92 (34-104) U/L Total Creatine Kinase 49 (26-192) U/L Troponin I High Sens 4.6 (0-14) pg/ml Total Protein 6.9 (6.0-8.3) gm/dl Albumin 4.2 (3.4-5.0) gm/dl Globulin 2.7 (2.5-4.0) gm/dl Albumin/Globulin Ratio 1.6 (0.9-2) Administered Medications Discontinued Medications Fentanyl Citrate (Fentanyl Citrate Pf 100 Mcg/2 Ml Vial) 50 mcg IV NOW STA Stop: 06/11/24 16:18 Last Admin: 06/11/24 16:46 Dose: 50 mcg Documented By: DILLON Fentanyl Citrate (Fentanyl Citrate Pf 100 Mcg/2 Ml Vial) 100 mcg IV NOW STA Stop: 06/11/24 19:14 Last Admin: 06/11/24 19:24 Dose: 50 mcg Documented By: MED Acetaminophen (Ofirmev) 1,000 mg in 100 mls @ 400 mls/hr IV NOW STA Stop: 06/11/24 16:32 Last Infusion: 06/11/24 17:30 Dose: Infused Documented By: Admin: 06/11/24 16:46 Dose: 400 mls/hr Documented By: AMS Losartan Potassium (Losartan Potassium 25 Mg Tab) 25 mg PO NOW STA Stop: 06/11/24 21:21 Last Admin: 06/11/24 21:39 Dose: 25 mg Documented By: MED Ondansetron HCl (Ondansetron Inj 2 Mg/Ml 2 Ml Vial) 4 mg IV NOW STA Stop: 06/11/24 20:10 Last Admin: 06/11/24 20:51 Dose: Not Given Documented By: MED Imaging Data Radiologist's Impression: Ankle X-Ray 06/11/24 16:17 EXAM: Radiographs of the Right Ankle 2 Views INDICATION: Posttraumatic pain. TECHNIQUE: Frontal and lateral views of the right ankle. COMPARISON: No relevant prior studies available. FINDINGS: Limitations: None. Bones/joints: There is acute trimalleolar fracture with tibiotalar dislocation. The talus is impacted upon the proximal fragment of the fibula. The distal fibular fragment is roughly 4 cm long and displaced nearly 1 shaft with lateral. There is mildly comminuted fracture of the medial malleolus. The posterior malleolus is difficult to assess with possible fragment projecting over the proximal fibular component. The tibia is perched on the medial edge of the talus which is rotated medially. No definite talar fracture noted. Small plantar and Achilles surface calcaneal spurs noted. Soft tissues: Periarticular soft tissue swelling noted. IMPRESSION: Acute fractures of the distal tibia and fibula with tibiotalar dislocation. Posterior malleolus is not well-evaluated with possible fracture fragment noted laterally. ACT 112: Negative or not required by law. Electronically signed by Talita Ramirez 06-11-2024 5:41 PM Chest X-Ray 06/11/24 16:17 INDICATION: Preoperative evaluation. TECHNIQUE: Frontal radiograph of the chest. COMPARISON: None. FINDINGS: Cardiomegaly. Large hiatal hernia. Mild pulmonary vascular congestion. Subsegmental atelectasis in the lung bases. No infiltrate, pleural effusion or pneumothorax. No acute osseous abnormality evident. IMPRESSION: Mild pulmonary vascular congestion. Large hiatal hernia. Electronically signed by Oracio Mora 06-11-2024 4:55 PM Tibia/Fibula X-Ray 06/11/24 16:17 EXAM: Radiographs of the Right Tibia and Fibula 2 Views INDICATION: Ankle fracture. TECHNIQUE: Frontal and lateral views of the right tibia and fibula. COMPARISON: No relevant prior studies available. FINDINGS: Bones/joints: Distal tibiotalar dislocation with fractures of the medial and lateral malleolar line noted. Question fracture from the posterior malleolus projecting over the proximal distal fibula fragment. No other tibial or fibular fracture noted. Incidental sclerotic nodule in the proximal tibia likely a small bony infarct. Soft tissues: Extensive soft tissue swelling noted. IMPRESSION: Distal tibial and fibular fractures with tibiotalar dislocation. No other fracture noted. ACT 112: Negative or not required by law. Electronically signed by Talita Ramirez 06-11-2024 5:41 PM Ankle X-Ray 06/11/24 19:25 EXAM: XR ankle RT 2V CLINICAL HISTORY: Post red TECHNIQUE: X-ray images of the right ankle were obtained in anteroposterior (AP), lateral, and mortise projections. 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 Bone Structure: There are displaced fractures identified in medial malleolus and distal fibula with minimally subluxed tibiotalar joint. No osseous lesions or abnormalities identified. Soft Tissues: Moderate soft tissue swelling is identified in right distal leg and right ankle. No soft tissue calcifications, or foreign bodies noted. Additional Findings: Plantar calcaneal spur and enthesophyte are present. POP cast is applied. IMPRESSION: Evidence of marked reduction of dislocated ankle joint,however minimally possible subluxation of tibiotalar joint is still present. Fractures of medial malleolus and distal fibula with adjacent soft tissue swelling. Disclaimer: A subtle bone abnormality or fracture may not be readily apparent on X-rays, thus clinical correlation and further imaging including follow-up CT, MRI, or follow-up X-rays are advised as needed. Electronically signed by Alexey De Souza 06-11-2024 9:52 PM Discharge Plan Visit Data Chief Complaint: Fall Stated Complaint: INJURY ALERT, FALL ED Provider: Renea Garcia Discharge Problem: Fall from standing, Acute right ankle pain, Dislocation of ankle, right, closed, Fracture of tibia and fibula Discharge Instructions Interventions: ED Discharge Assessment Last Done: 06/11/24 22:30
[2024-06-11 16:38] LABS: Basophils # (auto) 0.04 K/uL (0.00-0.20); Basophils % (auto) 0.5 %; Eosinophils # (auto) 0.26 K/uL (0.00-0.50); Eosinophils % (auto) 3.3 %; Hematocrit (blood only) 38.8 % (37.0-47.0); Hemoglobin 12.2 g/dl (12.0-16.0); Immature Granulocytes # (auto) 0.02 K/uL (0.01-0.20); Immature Granulocytes % (auto) 0.3 %; Lymphocytes # (auto) 1.99 K/uL (1.20-3.40); Lymphocytes % (auto) 25.2 %; Mean Corpuscular Hemoglobin 26.5 pg (25.0-34.0); Mean Corpuscular Hgb Conc 31.4 g/dL (32.0-36.0); Mean Corpuscular Volume 84.3 fL (80.0-100.0); Mean Platelet Volume 9.5 fL (9.4-12.4); Monocytes # (auto) 0.39 K/uL (0.11-0.59); Monocytes % (auto) 4.9 %; Neutrophils # (auto) 5.21 K/uL (1.40-6.50); Neutrophils % (auto) 65.8 %; Platelet Count 235 K/uL (130-400); RDW Coefficient of Variation 15.3 % (11.5-14.5); RDW Standard Deviation 46.4 fL (36.4-46.3); White Blood Count 7.91 K/ul (4.8-10.8)
[2024-06-11] MEDS: fentaNYL citrate PF 100 MCG/2 ML VIAL IV STA ×2 (16:46→19:24)
[2024-06-11] MEDS: ACETAMINOPHEN 1,000 MG/100 ML VIAL IV STA (16:46)
[2024-06-11 16:54] LABS: Albumin Globulin Ratio 1.6 (0.9-2); Albumin Level 4.2 gm/dl (3.4-5.0); BUN Creatinine Ratio 23.1 (10-20); Bilirubin,Total 0.7 mg/dl (0.2-1.0); Calcium 9.7 mg/dl (8.6-10.3); Creatinine Clr Calc Pharmacy 61.1 ml/min; Globulin 2.7 gm/dl (2.5-4.0); Magnesium 1.9 mg/dl (1.7-2.4); Potassium 3.8 mmol/L (3.5-5.1); Total Protein 6.9 gm/dl (6.0-8.3)
[2024-06-11 17:00] LABS: Troponin I High Sensitivity 4.6 pg/ml (0-14)
--- NOTE | 2024-06-11 17:41 | XRay Report ---
EXAM: Radiographs of the Right Ankle 2 Views INDICATION: Posttraumatic pain. TECHNIQUE: Frontal and lateral views of the right ankle. COMPARISON: No relevant prior studies available. FINDINGS: Limitations: None. Bones/joints: There is acute trimalleolar fracture with tibiotalar dislocation. The talus is impacted upon the proximal fragment of the fibula. The distal fibular fragment is roughly 4 cm long and displaced nearly 1 shaft with lateral. There is mildly comminuted fracture of the medial malleolus. The posterior malleolus is difficult to assess with possible fragment projecting over the proximal fibular component. The tibia is perched on the medial edge of the talus which is rotated medially. No definite talar fracture noted. Small plantar and Achilles surface calcaneal spurs noted. Soft tissues: Periarticular soft tissue swelling noted. IMPRESSION: Acute fractures of the distal tibia and fibula with tibiotalar dislocation. Posterior malleolus is not well-evaluated with possible fracture fragment noted laterally. ACT 112: Negative or not required by law. Electronically signed by Talita Ramirez 06-11-2024 5:41 PM
--- NOTE | 2024-06-11 17:41 | XRay Report ---
EXAM: Radiographs of the Right Tibia and Fibula 2 Views INDICATION: Ankle fracture. TECHNIQUE: Frontal and lateral views of the right tibia and fibula. COMPARISON: No relevant prior studies available. FINDINGS: Bones/joints: Distal tibiotalar dislocation with fractures of the medial and lateral malleolar line noted. Question fracture from the posterior malleolus projecting over the proximal distal fibula fragment. No other tibial or fibular fracture noted. Incidental sclerotic nodule in the proximal tibia likely a small bony infarct. Soft tissues: Extensive soft tissue swelling noted. IMPRESSION: Distal tibial and fibular fractures with tibiotalar dislocation. No other fracture noted. ACT 112: Negative or not required by law. Electronically signed by Talita Ramirez 06-11-2024 5:41 PM
--- NOTE | 2024-06-11 17:46 | XRay Report ---
INDICATION: Preoperative evaluation. TECHNIQUE: Frontal radiograph of the chest. COMPARISON: None. FINDINGS: Cardiomegaly. Large hiatal hernia. Mild pulmonary vascular congestion. Subsegmental atelectasis in the lung bases. No infiltrate, pleural effusion or pneumothorax. No acute osseous abnormality evident. IMPRESSION: Mild pulmonary vascular congestion. Large hiatal hernia. Electronically signed by Oracio Mora 06-11-2024 4:55 PM
[2024-06-11] MEDS: ONDANSETRON INJ 2 MG/ML 2 ML VIAL IV STA (20:51)
--- NOTE | 2024-06-11 21:20 | History & Physical Report ---
Date of Service June 11, 2024 Assessment & Plan (1) Fracture of tibia and fibula: Plan: Traumatic right tibia/fibular fracture Underlying osteoporosis Traumatic right wrist pain hx CAD status post stent, stable as per last outpatient [facility] cardiology visit Se ptember 2023 hypertension, slight elevated secondary discomfort hyperlipidemia, on statin Rx GERD/hiatal hernia, stable on regimen prediabetes, hemoglobin A1c of 6.1 last 2022 Admit to [facility] Check right wrist x-ray Orthopedics consult Re: Right tibia/fibular fracture (ED provider already in touch with Dr. Doherty who recommends surgery in AM.) N.p.o. after midnight anticipation of procedure Acceptable risk for cardiac complications resulting from prospective procedure Revised Cardiac Risk Index (RCRI): 1. High-risk type of surgery (examples include vascular and any open int raperitoneal or intrathoracic procedures). No 2. History of ischemic heart disease (history of myocardial infarction or positive exercise test, current compliant of chest pain considered to be second jayme to myocardial ischemia, use of nitrate therapy, or ECG with pathological Q waves; do not count prior coronary revascularization procedure unless one of the other criteria for ischemic heart disease is present). Yes 3. History of heart failure. No 4. History of cerebrovascular disease. No 5. Diabetes mellitus requiring treatment with insulin. No 6. Preoperative serum creatinine >2.0. No Pt has revised cardiac index score of 0 points. (Class II Risk.) 6.3 % 30-day risk of , MD, or cardiac arrest. Acceptable risk for cardiac complications if surgery recommended by Orthopedics and patient/family agreeable to attendant procedural benefits and risks. Hold home aspirin for secondary CAD prevention for now in anticipation of procedure. Resume once Orthopedics okay. Analgesia, extra losartan for BP control DVT prophylaxis. SCDs re: possible procedure Full code Patient requesting updates from providers. Mr. Nakul Brandon, contact #[phone]. Text document was generated using [employer] voice recognition software. It may contain grammatical or spelling errors. Kindly contact undersigned for clarification of any documentation item in qu estion. History of Present Illness Chief Complaint: Fall, right ankle pain Primary Care Provider: Vesta Reyes MD History obtained from patient, family, and records. Medical history significant for CAD status post stent (2016), hypertension, hyperlipidemia, GERD, hiatal hernia, prediabetes, osteoporosis. Last confinement August 2023 for bronchitis secondary to entero/rhinovirus infection. Patient slipped and fell backwards going down a stairway outside her home. Patient landed on her bottom. Achy right wrist pain and right ankle pain from falling. No head trauma. No chest pain, SOB, LOC. Patient had trouble getting up. Medical History as above Surgical History : Bunionectomy, section, cystoscopy, parathyroidectomy, cholecystectomy, cataract surgeries, NOEMI/BSO, hammertoe surgery Family History : Breast cancer, CLL, heart disease, dementia Personal/Social history : Non-smoker, occasional EtOH intake, retired [employer] employee Allergies Allergy/AdvReac Type Severity Reaction Status Date / Time pollen extracts Allergy Unknown Verified 08/29/23 21:03 Home Medications Medication Instructions Recorded Confirmed Type ascorbic acid (vitamin C) 500 mg 500 mg PO DAILY 08/29/23 06/11/24 History tablet (Vitamin C) aspirin 81 mg tablet,delayed 81 mg PO DAILY 08/29/23 06/11/24 History release cholecalciferol (vitamin D3) 25 25 mcg PO DAILY 08/29/23 06/11/24 History mcg (1,000 unit) tablet (Vitamin D3) cyanocobalamin (vitamin B-12) 1,000 mcg PO DAILY 08/29/23 06/11/24 History 1,000 mcg tablet (Vitamin B-12) famotidine 20 mg tablet 20 mg PO HS 08/29/23 06/11/24 History fluticasone propionate 50 2 spray intranasal DAILY PRN prn 08/29/23 06/11/24 History mcg/actuation nasal spray,suspension loratadine 10 mg tablet (Claritin) 10 mg PO DAILY PRN allergies 08/29/23 06/11/24 History losartan 25 mg tablet 25 mg PO QAM 08/29/23 06/11/24 History metoprolol succinate 25 mg 25 mg PO DAILY 08/29/23 06/11/24 History tablet,extended release 24 hr pantoprazole 40 mg tablet,delayed 40 mg PO DAILY 08/29/23 06/11/24 History release rosuvastatin 40 mg tablet 40 mg PO DAILY 08/29/23 06/11/24 History albuterol sulfate 90 mcg/actuation 1 inh inhalation Q6H PRN shortness 08/30/23 06/11/24 Rx aerosol inhaler of breath or wheezing #6.7 grams Past Med/Surg History Problem List (Updated 09/30/23 @ 00:07 by Rao Schneider) Fracture of tibia and fibula (Acute) Dislocation of ankle, right, closed (Acute) Acute right ankle pain (Acute) Fall from standing (Acute) Acute bronchitis Osteoporosis (Chronic) GERD (gastroesophageal reflux disease) (Chronic) Rhinovirus infection (Acute) Flu-like symptoms (Acute) Hypoxia (Acute) SRAVAN (iron deficiency anemia) (Chronic) CAD (coronary artery disease) (Chronic) "03/2017-NSTEMI, S/P ROMAN to LAD" Hammertoe (Chronic) S/P bunionectomy (Chronic) S/P cholecystectomy (Chronic) History of cataract surgery (Chronic) History of hysterectomy (Chronic) Medical History Osteoporosis GERD (gastroesophageal reflux disease) Social History Smoking Status: Never smoker Hx Alcohol Use: No Hx Substance Use: No Preferred Language: Croatian Communication Ability: Effective Mold Parter Required: No Beliefs That Will Affect Care: None Current Living Situation: Spouse Feels Safe at Home: Yes Assistive Devices: None Review of Systems Review of Systems: As per HPI, all other systems reviewed and negative Physical Exam Physical Exam: GENERAL: Comfortable, pleasant, obese, no respiratory distress SKIN: Normal color, warm HEENT: [place] palpebral conjunctivae, no ptosis, moist buccal mucosa NECK : Supple, no tenderness CHEST : CTA, no tenderness HEART : RRR, no obvious murmurs ABDOMEN: Some distention, nontender EXTREMITIES : RLE splint, minimal right wrist tenderness, palpable pulses, no other conspicuous deformities noted NEUROLOGIC : Coherent, no facial asymmetry, no other gross focality Results & Data Results & Data Vital Signs (Past 12 Hours) Vital Signs Temp Pulse Pulse Resp BP BP Pulse Ox 06/11/24 21:10 61 20 163/62 H 06/11/24 20:22 56 L 06/11/24 19:25 65 21 143/69 H 100 06/11/24 17:14 63 17 96 06/11/24 17:02 62 17 162/83 H 95 06/11/24 16:27 68 06/11/24 16:03 36.8 C 75 17 189/147 H 97 06/11/24 16:03 36.8 C 75 17 189/147 H 97 O2 Del Method 06/11/24 21:10 06/11/24 20:22 06/11/24 19:25 Room Air 06/11/24 17:14 Room Air 06/11/24 17:02 Room Air 06/11/24 16:27 06/11/24 16:03 Room Air 06/11/24 16:03 Room Air Laboratory Results Laboratory Results WBC 7.91 K/ul (4.8-10.8) 06/11/24 16:00 RBC 4.60 M/uL (4.20-5.40) 06/11/24 16:00 Hgb 12.2 g/dl (12.0-16.0) 06/11/24 16:00 Hct 38.8 % (37.0-47.0) 06/11/24 16:00 MCV 84.3 fL (80.0-100.0) 06/11/24 16:00 MCH 26.5 pg (25.0-34.0) 06/11/24 16:00 MCHC 31.4 g/dL (32.0-36.0) L 06/11/24 16:00 RDW Std Deviation 46.4 fL (36.4-46.3) H 06/11/24 16:00 RDW Coeff of Khadra 15.3 % (11.5-14.5) H 06/11/24 16:00 Plt Count 235 K/uL (130-400) 06/11/24 16:00 MPV 9.5 fL (9.4-12.4) 06/11/24 16:00 Immature Gran % (Auto) 0.3 % 06/11/24 16:00 Neut % (Auto) 65.8 % 06/11/24 16:00 Lymph % (Auto) 25.2 % 06/11/24 16:00 [place] % (Auto) 4.9 % 06/11/24 16:00 Eos % (Auto) 3.3 % 06/11/24 16:00 Baso % (Auto) 0.5 % 06/11/24 16:00 Neut # (Auto) 5.21 K/uL (1.40-6.50) 06/11/24 16:00 Lymph # (Auto) 1.99 K/uL (1.20-3.40) 06/11/24 16:00 [place] # (Auto) 0.39 K/uL (0.11-0.59) 06/11/24 16:00 Eos # (Auto) 0.26 K/uL (0.00-0.50) 06/11/24 16:00 Baso # (Auto) 0.04 K/uL (0.00-0.20) 06/11/24 16:00 Immature Gran # (Auto) 0.02 K/uL (0.01-0.20) 06/11/24 16:00 Sodium 138 mmol/L (136-145) 06/11/24 16:00 Potassium 3.8 mmol/L (3.5-5.1) 06/11/24 16:00 Chloride 103 mmol/L (98-107) 06/11/24 16:00 Carbon Dioxide 28 mmol/L (21-32) 06/11/24 16:00 Anion Gap 7 (3-11) 06/11/24 16:00 BUN 15 mg/dl (6-23) 06/11/24 16:00 Creatinine 0.65 mg/dl (0.6-1.2) 06/11/24 16:00 Est Cr Clr Drug Dosing 61.1 ml/min 06/11/24 16:00 eGFR 87.85 06/11/24 16:00 BUN/Creatinine Ratio 23.1 (10-20) H 06/11/24 16:00 Glucose 108 mg/dl (70-99(Fasting)) H 06/11/24 16:00 Calcium 9.7 mg/dl (8.6-10.3) 06/11/24 16:00 Magnesium 1.9 mg/dl (1.7-2.4) 06/11/24 16:00 Total Bilirubin 0.7 mg/dl (0.2-1.0) 06/11/24 16:00 AST 17 U/L (13-39) 06/11/24 16:00 ALT 14 U/L (7-52) 06/11/24 16:00 Alkaline Phosphatase 92 U/L (34-104) 06/11/24 16:00 Total Creatine Kinase 49 U/L (26-192) 06/11/24 16:00 Troponin I High Sens 4.6 pg/ml (0-14) 06/11/24 16:00 Total Protein 6.9 gm/dl (6.0-8.3) 06/11/24 16:00 Albumin 4.2 gm/dl (3.4-5.0) 06/11/24 16:00 Globulin 2.7 gm/dl (2.5-4.0) 06/11/24 16:00 Albumin/Globulin Ratio 1.6 (0.9-2) 06/11/24 16:00 Impressions Chest X-Ray 06/11/24 16:17 INDICATION: Preoperative evaluation. TECHNIQUE: Frontal radiograph of the chest. COMPARISON: None. FINDINGS: Cardiomegaly. Large hiatal hernia. Mild pulmonary vascular congestion. Subsegmental atelectasis in the lung bases. No infiltrate, pleural effusion or pneumothorax. No acute osseous abnormality evident. IMPRESSION: Mild pulmonary vascular congestion. Large hiatal hernia. Electronically signed by Oracio Mora 06-11-2024 4:55 PM Tibia/Fibula X-Ray 06/11/24 16:17 EXAM: Radiographs of the Right Tibia and Fibula 2 Views INDICATION: Ankle fracture. TECHNIQUE: Frontal and lateral views of the right tibia and fibula. COMPARISON: No relevant prior studies available. FINDINGS: Bones/joints: Distal tibiotalar dislocation with fractures of the medial and lateral malleolar line noted. Question fracture from the posterior malleolus projecting over the proximal distal fibula fragment. No other tibial or fibular fracture noted. Incidental sclerotic nodule in the proximal tibia likely a small bony infarct. Soft tissues: Extensive soft tissue swelling noted. IMPRESSION: Distal tibial and fibular fractures with tibiotalar dislocation. No other fracture noted. ACT 112: Negative or not required by law. Electronically signed by Talita Ramirez 06-11-2024 5:41 PM Diagnostic Findings EKG as per my interpretation :Rate 60, NSR, normal axis, septal infarct, no ischemia
[2024-06-11] MEDS: LOSARTAN POTASSIUM 25 MG TAB PO STA (21:39)
--- NOTE | 2024-06-11 21:53 | XRay Report ---
EXAM: XR ankle RT 2V CLINICAL HISTORY: Post red TECHNIQUE: X-ray images of the right ankle were obtained in anteroposterior (AP), lateral, and mortise projections. 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 Bone Structure: There are displaced fractures identified in medial malleolus and distal fibula with minimally subluxed tibiotalar joint. No osseous lesions or abnormalities identified. Soft Tissues: Moderate soft tissue swelling is identified in right distal leg and right ankle. No soft tissue calcifications, or foreign bodies noted. Additional Findings: Plantar calcaneal spur and enthesophyte are present. POP cast is applied. IMPRESSION: Evidence of marked reduction of dislocated ankle joint,however minimally possible subluxation of tibiotalar joint is still present. Fractures of medial malleolus and distal fibula with adjacent soft tissue swelling. Disclaimer: A subtle bone abnormality or fracture may not be readily apparent on X-rays, thus clinical correlation and further imaging including follow-up CT, MRI, or follow-up X-rays are advised as needed. Electronically signed by Alexey De Souza 06-11-2024 9:52 PM
[2024-06-11] MEDS ORDERED: MoRPHine SULFATE 2 MG/ML CARP IV PRN (21:54)
[2024-06-11] MEDS ORDERED: PROMETHAZINE 6.25 MG/50.25 ML BAG IV PRN (21:54)
[2024-06-11] MEDS ORDERED: traMADol HCL 50 MG TABLET PO PRN (21:54)
[2024-06-11] MEDS ORDERED: hydrOXYzine HCl 10 MG TAB PO PRN (21:54)
[2024-06-11] MEDS: FAMOTIDINE 20 MG TAB PO ONE (23:48)
[2024-06-11] MEDS: ONDANSETRON 4 MG OD TAB PO STA (23:49)
[2024-06-11] MEDS: SODIUM CHLORIDE 0.9% 1,000 ML IV ONE (23:51)
[2024-06-12] MEDS ORDERED: FLUTICASONE PROPIONATE NA SPR 16 GM BTL PRN (01:07)
--- NOTE | 2024-06-12 02:25 | XRay Report ---
Exam(s): XR RIGHT WRIST, 3+ views EXAM: XR Right Wrist Complete, 3 or More Views CLINICAL HISTORY: Reason for exam: pain, trauma hx. TECHNIQUE: Frontal, lateral and oblique views of the right wrist. COMPARISON: No relevant prior studies available. FINDINGS: Bones/joints: Osteopenia. Small bone fragment on the dorsal aspect of the carpal bones on the lateral view. No acute fracture. No dislocation. Soft tissues: Unremarkable. No radiopaque foreign body. IMPRESSION: Small bone fragment on the dorsal aspect of the carpal bones on the lateral view. May represent triquetral fracture. Electronically signed by: Ayla Saldaña M.D. 06/12/24 02:24 AM
[2024-06-12 07:19] LABS: Basophils # (auto) 0.03 K/uL (0.00-0.20); Basophils % (auto) 0.4 %; Eosinophils # (auto) 0.17 K/uL (0.00-0.50); Hematocrit (blood only) 36.7 % (37.0-47.0); Hemoglobin 11.7 g/dl (12.0-16.0); Immature Granulocytes # (auto) 0.05 K/uL (0.01-0.20); Immature Granulocytes % (auto) 0.6 %; Lymphocytes % (auto) 21.6 %; Mean Corpuscular Hemoglobin 26.2 pg (25.0-34.0); Mean Corpuscular Hgb Conc 31.9 g/dL (32.0-36.0); Mean Corpuscular Volume 82.1 fL (80.0-100.0); Mean Platelet Volume 9.6 fL (9.4-12.4); Monocytes # (auto) 0.52 K/uL (0.11-0.59); Monocytes % (auto) 6.2 %; Neutrophils # (auto) 5.77 K/uL (1.40-6.50); Neutrophils % (auto) 69.2 %; Platelet Count 213 K/uL (130-400); RDW Coefficient of Variation 15.4 % (11.5-14.5); Red Blood Count 4.47 M/uL (4.20-5.40); White Blood Count 8.34 K/ul (4.8-10.8)
--- OUTSIDE RECORDS SUMMARY | 2024-06-12 07:48 | External Medical Summary | Summary of Care ---
Author Name Unknown Organization [facility] Address [address] [place] [address] Phone [phone] Care Team Providers Care Wellness Nurse Name Role Phone Vesta Reyes MD Primary Care Provider + Encounter Details Date Type Department Care Team (Late st Contact Info) Description 05/24/2024 Population Health External Data Unspecified Department Allergies Active Allergy Reactions Criticality Noted Date Comments Pollen 11/05/2021 Hasn't been properly diagnosed, but has allergy symptoms worse in summer documented as of this encounter (statuses as of 05/24/2024) Medications VITAMIN D 1000 UNIT PO CAPS 1 capsule daily 1 Active B-12 1000 MCG PO CAPS one daily Active Ascorbic Acid 500 MG CAPS Take 1 Capsule by mouth in the morning. 5 Active Nitroglycerin 0.4 MG Sublingual Tablet Sublingual (Nitrostat) Place 1 Tablet under the tongue every 5 minutes as needed for Pain, Chest. 25 Tablet 5 2 Active Additional Information Patient not taking.Reported on 02/29/2024 Loratadine 10 MG Oral Capsule Take 1 Capsule by mouth as needed for Rhinitis. Active Rosuvastatin Calcium 40 MG Oral Tablet (Crestor)Indicat ions:Coronary artery disease involving [place] coronary artery of [place] heart without angina pectoris,S/P drug eluting coronary stent placement,Histor y of non-ST elevation myocardial infarction (NSTEMI) Take 1 tablet by mouth once daily 90 Tablet 3 4 Active Albuterol Sulfate HFA 108 (90 Base) MCG/ACT Inhalation Aerosol Solution Q6H 4 Active Budesonide-Formo terol Fumarate 80-4.5 MCG/ACT Inhalation Aerosol (Symbicort)Indic ations:Acute bronchitis, unspecified organism,Hiatal hernia,Wheezing- associated respiratory infection (WARI),Abnormal CXR (chest x-ray) Inhale 2 Puffs by mouth in the morning and 2 Puffs before bedtime. 10.2 g 1 4 Active Additional Information Patient not taking.Reported on 11/07/2023 Metoprolol Succinate ER 25 MG Oral Tablet Extended Release 24 Hour (toPROL XL) Take 1 tablet by mouth once daily 90 Tablet 3 4 Active Fluticasone Propionate 50 MCG/ACT Nasal Suspension (Flonase)Indicat ions:Seasonal allergic rhinitis due to pollen Administer 2 Sprays into nostril in the morning. 48 g 4 Active Additional Information Patient taking differently:2 [place] NasalDAILY PRN, Reported on 04/02/2024 Losartan Potassium 25 MG Oral Tablet (Cozaar)Indicati ons:HTN, goal below 140/90 TAKE 1 TABLET BY MOUTH IN THE MORNING 90 Tablet 3 4 Active EQ Aspirin Adult Low Dose 81 MG Oral Tablet Delayed Release (aspirin enteric coated)Indicatio ns:Coronary artery disease involving [place] coronary artery of [place] heart without angina pectoris Take 1 tablet by mouth once daily 90 Tablet 1 4 Active Famotidine 20 MG Oral Tablet (Pepcid)Indicati ons:Hiatal hernia TAKE 1 TABLET BY MOUTH AT BEDTIME 90 Tablet 1 4 Active Pantoprazole Sodium 40 MG Oral Tablet Delayed Release (Protonix)Indica tions:Gastritis, presence of bleeding unspecified, unspecified chronicity, unspecified gastritis type Take 1 tablet by mouth once daily 90 Tablet 3 5 Active documented as of this encounter (statuses as of 05/24/2024) Active Problems Problem Noted Date Diagnosed Date Prediabetes 11/10/2020 Overview: Per Prediabetes protocol HTN, goal below 140/90 07/06/2019 Dyslipidemia, goal LDL below 70 07/06/2019 Coronary artery disease invo lving o[place]e-[place] coronary artery of [place] heart without angina pectoris 05/29/2017 S/P drug eluting coronary stent placement 2017 History of non-ST elevation myocardial infarctio n (NSTEMI) 05/29/2017 Senile osteoporosis 03/10/2017 Gastroesophageal reflux disease without esophagi tis 03/10/2017 documented as of this encounter (statuses as of 05/24/2024) Resolved Problems Problem Noted Date Diagnosed Date Resolved Date Prediabetes 10/09/2018 01/12/2019 Overview: Per Prediabetes protocol Osteoporosis 01/13/2017 03/10/2017 ADVANCE DIRECTIVE INFORMATION 11/07/2007 03/10/2017 Overview (11/07/2007): No, Advance Directive brochure offered , patient declined. Benign neoplasm of colon 11/18/2006 Overview (11/30/2006): adenomatous tissue-repeat colonoscopy in 3 years Other osteoporosis without c urrent pathological fracture 01/31/2002 08/24/2018 Overview (02/22/2017): ICD-10 update of inactive term Esophageal reflux 10/09/2001 03/10/2017 Postmenopausal atrophic vaginitis 10/09/2001 08/25/2018 documented as of this encounter (statuses as of 05/24/2024) Immunizations Name Administration Dates Next Due COVID-19 mRNA, LNP-s, No Pre serve, 2-Dose Series (Power Content) 04/16/2021,07/14/2020,06/09/2020 Covid-19, Mrna, Lnp-s, Pf, B ivalent, 30 Mcg, IM, 12 yrs and above (Pfizer) 02/09/2022 Pneumococcal Conjugate Vacc, 13 Valent (Prevnar) 01/31/2015 Pneumococcal Polysaccharide PPV23 (Pneumovax) 08/18/2007 RSV Vac., Bivalent, Perfusio n F, Pf,0.5 Ml (Abrysvo) 03/05/2024 Season Influenza, Quad, PF, Adjuvanted, 65+ Yrs, IM (FLUAD) 01/10/2020 Seasonal Influenza Vac., MDV , IM, 0.5 mL (Fluzone) 01/31/2014,02/01/2013,01/24/2012,01/01,01/30/2010,01/17/2009,03/05/20 08,02/08/2007,03/16/2006 01/31/2015 Seasonal Influenza, High Dos e, Trivalent, PF, IM (Fluzone HD) 02/29/2024 Seasonal Influenza, PF, 6 M & above, IM , (FluLaval or Fluzone) 02/09/2018 Seasonal Influenza, Quadriva lent Hd (Fluzone Hd) 02/09/2023,02/02/2022,02/11/2021 Seasonal Influenza, Quadriva lent, No Preserve, IM 01/13/2017,01/22/2016,01/31/2015 01/21/2017 Seasonal Influenza, Trivalen t, Adjuvanted, 65+ YRS, PF, (Fluad) 01/04/2019 TD, Preservative Free 03/10/2017 TDAP, Age 7 and older, IM (Adacel) 11/10/2005 Varicella Zoster Vaccine (Adult) 07/22/2011 documented [...] in the Last Year Never true 02/22/2019 Comments No Sex and Gender Information Value Date Recorded Sex Assigned at Female 01/04/2019 10:04 AM EDT Legal Sex Female 5:17 AM EST Gender Identity Female 01/04/2019 10:04 AM EDT Sexual Orientation Straight 01/04/2019 10 :04 AM EDT Occupation Industry Job Start Date Job End Date retired Not on file Not on file Not on file [employer] Not on file Not on file Not on file documented as of this encounter Plan of Treatment Upcoming Encounters Date Type Department Care Team (Late st Contact Info) Description 07/23/2024 11:00 AM EDT Office Visit Cardiology, [facility] [address] [id number] Arnulfo Arias PA-C [address] [id number] 08/06/2024 2:30 PM EDT Imaging Radiology [facility] [address] [phone] 08/29/2024 9:20 AM EDT Office Visit General Internal Medicine [facility] [address] [place] [address] Vesta Reyes MD [address] [place] [address] 02/11/2025 2:00 PM EDT Office Visit Endocrinology [address] [place] [place] [phone] Jose Mendoza MD [address] [place] [address] Health Maintenance Due Date Last Done Comments Zoster Vaccines (2 of 3) 09/16/2011 07/22/2011 Adult Wellness Visit 05/17/2015 05/17/2014 COVID-19 Vaccine ( season) 2024 02/09/2022, 04/16/2021, 07/14/2020, Additional history exists Depression Screening 02/10/2024 02/09/2023 HbA1c 02/10/2024 02/09/2023, 07/31, 11/16/2021, Additional history exists Albumin/Creatinine Ratio 11/16/2024 11/16/2021, 09/30 GFR 04/02/2025 04/02/2024, 01/31, 07/06/2023, Additional history exists DTap/Tdap Vaccines (3 - Td or Tdap) 03/10/2027 03/10/2017, 11/10/2005 Pneumococcal Vaccine: 50+ Years Completed 01/31/2015, 08/18/2007 Influenza Vaccine (FLU shot) Completed , 02/09/2023, 02/02/2022, Additional history exists HPV (Gardasil) Vaccine Aged Out No lo nger eligible based on patient's age to complete this topic Hepatitis B Vaccine Aged Out No longe r eligible based on patient's age to complete this topic MENINGOCOCCAL (MENACTRA/MENVEO) Aged Out No longer eligible based on patient's age to complete this topic documented as of this encounter Medical Devices Implanted Type Area New Accounts Clerk Device Identifier Shelf Expiration Date Model / Serial / Lot Lens Intraoc 21.5 - [id number] - [id number] Implanted:Qty: 1 on 06/01/2016 by Scott Mckee MD at OR [facility] Right: Eye [employer] 12/30/2020 [id number] / [id number] / [id number] Lens Intraoc 20.0 - [id number] - [id number] Implanted:Qty: 1 on 06/15/2016 by Scott Mckee MD at OR [facility] Left: Eye [employer] 01/29/2021 [id number] / [id number] / [id number] 2.0 Cannulated Screw Implanted:Qty: 1 on 07/01/2017 by Renea Landrum DPM at OR [facility] Left: Foot [employer] [id number] / / Trim-It Drill Pin, 2 X100 Mm Implanted:Qty: 1 on 07/01/2017 by Renea Landrum DPM at OR [facility] Left: Foot [employer] 12/30/2018 [id number] / / [id number] documented as of this encounter Advance Directives * Full Code (Latest Code Status on File) Date Activated Date Inactivated Comments 06/15/2016 6:35 AM 06/15/2016 1:12 PM This order r eflects the patients wishes and were consensually agreed upon. * Full Code Date Activated Date Inactivated Comments 06/01/2016 11:50 AM 06/01/2016 5:59 PM This order reflects the patients wishes and were consensually agreed upon. Care Teams Wellness Nurse Relationship Specialty Start Date End Date Vesta Reyes MD [address] [facility] [place] [address] PCP - General 08/16/07 documented as of this encounter
--- OUTSIDE RECORDS SUMMARY | 2024-06-12 07:48 | External Medical Summary | Summary of Care ---
Author Name Unknown Organization [facility] Address [address] [address] Phone [phone] Care Team Providers Care Theology Professor Name Role Phone Vesta Reyes MD Primary Care Provider + Reason for Visit * Reason Comments eRx-Medication Refill Encounter Details Date Type Department Care Team (Late st Contact Info) Description 05/12/2024 Refill Cardiology, [facility] [address] [place] [address] Pieter Ely PA-C [address] [place] [address] Gastritis, presence of bleeding unspecified, unspecified chronicity, unspecified gastritis type Allergies Active Allergy Reactions Criticality Noted Date Comments Pollen 11/05/2021 Hasn't been properly diagnosed, but has allergy symptoms worse in summer documented as of this encounter (statuses as of 05/14/2024) Medications VITAMIN D 1000 UNIT PO CAPS 1 capsule daily 01/26/20 11 Active B-12 1000 MCG PO CAPS one daily Active Ascorbic Acid 500 MG CAPS Take 1 Capsule by mouth in the morning. 09/28/19 15 Active Nitroglycerin 0.4 MG Sublingual Tablet Sublingual (Nitrostat) Place 1 Tablet under the tongue every 5 minutes as needed for Pain, Chest. 25 Tablet 5 04/22/20 22 Active Additional Information Patient not taking.Reported on 02/29/2024 Loratadine 10 MG Oral Capsule Take 1 Capsule by mouth as needed for Rhinitis. Active Rosuvastatin Calcium 40 MG Oral Tablet (Crestor)Indica tions:Coronary artery disease involving [place] coronary artery of [place] heart without angina pectoris,S/P drug eluting coronary stent placement,Histo ry of non-ST elevation myocardial infarction (NSTEMI) Take 1 tablet by mouth once daily 90 Tablet 3 08/29/19 24 Active Albuterol Sulfate HFA 108 (90 Base) MCG/ACT Inhalation Aerosol Solution Q6H 08/30/19 24 Active Budesonide-Form oterol Fumarate 80-4.5 MCG/ACT Inhalation Aerosol (Symbicort)Jeane cations:Acute bronchitis, unspecified organism,Hiatal hernia,Wheezing -associated respiratory infection (WARI),Abnormal CXR (chest x-ray) Inhale 2 Puffs by mouth in the morning and 2 Puffs before bedtime. 10.2 g 1 09/05/19 24 Active Additional Information Patient not taking.Reported on 11/07/2023 Metoprolol Succinate ER 25 MG Oral Tablet Extended Release 24 Hour (toPROL XL) Take 1 tablet by mouth once daily 90 Tablet 3 09/16/19 24 Active Fluticasone Propionate 50 MCG/ACT Nasal Suspension (Flonase)Indica tions:Seasonal allergic rhinitis due to pollen Administer 2 Sprays into nostril in the morning. 48 g 11/07/19 24 Active Additional Information Patient taking differently:2 [place] NasalDAILY PRN, Reported on 04/02/2024 Losartan Potassium 25 MG Oral Tablet (Cozaar)Indicat ions:HTN, goal below 140/90 TAKE 1 TABLET BY MOUTH IN THE MORNING 90 Tablet 3 12/29/19 24 Active EQ Aspirin Adult Low Dose 81 MG Oral Tablet Delayed Release (aspirin enteric coated)Indicati ons:Coronary artery disease involving [place] coronary artery of [place] heart without angina pectoris Take 1 tablet by mouth once daily 90 Tablet 1 02/15/20 24 Active Famotidine 20 MG Oral Tablet (Pepcid)Indicat ions:Hiatal hernia TAKE 1 TABLET BY MOUTH AT BEDTIME 90 Tablet 1 02/27/20 24 Active Pantoprazole Sodium 40 MG Oral Tablet Delayed Release (Protonix)Indic ations:Gastriti s, presence of bleeding unspecified, unspecified chronicity, unspecified gastritis type Take 1 tablet by mouth once daily 90 Tablet 3 05/14/19 25 Active Pantoprazole Sodium 40 MG Oral Tablet Delayed Release (Protonix)Indic ations:Gastriti s, presence of bleeding unspecified, unspecified chronicity, unspecified gastritis type Take 1 tablet by mouth once daily 90 Tablet 3 05/16/19 24 025 Discontinued documented as of this encounter (statuses as of 05/14/2024) Active Problems Problem Noted Date Diagnosed Date Prediabetes 11/10/2020 Overview: Per Prediabetes protocol HTN, goal below 140/90 07/06/2019 Dyslipidemia, goal LDL below 70 07/06/2019 Coronary artery disease invo lving [place] coronary artery of [place] heart without angina pectoris 05/29/2017 S/P drug eluting coronary stent placement 2017 History of non-ST elevation myocardial infarctio n (NSTEMI) 05/29/2017 Senile osteoporosis 03/10/2017 Gastroesophageal reflux disease without esophagi tis 03/10/2017 documented as of this encounter (statuses as of 05/14/2024) Resolved Problems Problem Noted Date Diagnosed Date [...] as of this encounter (statuses as of 05/14/2024) Immunizations Name Administration Dates Next Due COVID-19 mRNA, LNP-s, No Pre serve, 2-Dose Series ([employer]) 04/16/2021,07/14/2020,06/09/2020 Covid-19, Mrna, Lnp-s, Pf, B ivalent, [...] file Not on file Not on file 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 Not on file Not on file documented as of this encounter Miscellaneous Notes * Telephone Encounter - Pieter Ely PA-C - 05/14/2024 10:51 AM ESTSigned Prescriptions: Disp Refills Pantoprazole Sodium 40 MG Oral Tablet Chanell*90 Tab*3 Sig: Take 1 tablet by mouth once daily Authorizing Provider: PIETER ELY * Telephone Encounter - Billie Gomez CMA - 05/14/2024 9:02 AM ESTPending Prescriptions: Disp Refills Pantoprazole Sodium 40 MG Oral Tablet Chanell*90 Tab*3 Sig: Take 1 tablet by mouth once daily * Telephone Encounter - Shlomo Rebolledo - 05/12/2024 2:51 PM ESTPending Prescriptions: Disp Refills Pantoprazole Sodium 40 MG Oral Tablet Chanell*90 Tab*0 Sig: Take 1 tablet by mouth once daily * Telephone Encounter - Shlomo Rebolledo - 05/12/2024 2:49 PM EST Did you pend patient's preferred pharmacy and medication before forwarding?yes Pharmacy: [facility] [address] Pending Prescriptions: Disp Refills Pantoprazole Sodium 40 MG Oral Tablet Del*90 Tab*0 Sig: Take 1 tablet by mouth once daily Last Visit: 01/13/2024 (in office), Visit date not found (telemedicine) Next Visit: 07/23/2024 If no future appointments scheduled, and last appointment is greater than a year ago, please schedule patient for a follow-up appointment Last date the medication was ordered: 05/16/2023 Is this request for a controlled substance?No Urine Drug Screen:No results found. However, due to the size of the patient record, not all encounters were searched. Please check Results Review for a complete set of results. Patient Phone Numbers Labs: Lab Results Component Value Date/Time CREAT 0.7 04/02/2024 03:10 PM CREAT 0.9 04/17/2020 02:46 PM POTASSIUM 4.3 04/02/2024 03:10 PM POTASSIUM 4.3 04/17/2020 02:46 PM TSH 1.53 02/23/2024 10:07 AM TSH 1.39 09/12/2019 09:56 AM LDL 32 02/09/2023 11:05 AM LDL 04/17/2020 02:46 PM Uninterpretable, recommend direct LDL cholesterol testing. LDLCALC 83 03/03/2017 12:00 AM ALT 17 04/02/2024 03:10 PM ALT 21 04/17/2020 02:46 PM HGBA1C 6.1 (H) 02/09/2023 11:05 AM HGBA1C 6.1 (H) 04/17/2020 02:46 PM documented in this encounter Plan of Treatment Upcoming Encounters Date Type Department Care Team (Late st Contact Info) Description 07/23/2024 11:00 AM EDT Office Visit Cardiology, [facility] [address] [place] [address] Pieter Ely PA-C [address] [place] [address] 08/06/2024 2:30 PM EDT Imaging Radiology [facility] [address] [place] [phone] 08/29/2024 9:20 AM EDT Office Visit General Internal Medicine [facility] [address] [facility] [place] [address] Vesta Reyes MD [address] [facility] [place] [address] 02/11/2025 2:00 PM EDT Office Visit Endocrinology [address] [place] [phone] Jose Mendoza MD [address] [id number] Health Maintenance Due Date Last Done Comments [...] this encounter Medical Devices Implanted Type Area Metal Fabricator Apprentice Device Identifier Shelf Expiration Date Model / Serial / Lot Lens Intraoc 21.5 - [id number] - [id number] Implanted:Qty: 1 on 06/01/2016 by Scott Mckee MD at OR [facility] Right: Eye [employer] 12/30/2020 [id number] / [id number] / [id number] Lens Intraoc 20.0 - [id number] - [id number] Implanted:Qty: 1 on 06/15/2016 by Scott Mckee MD at OR [facility] Left: Eye [employer]OM[employer] 01/29/2021 [id number] / [id number] / [id number] 2.0 Cannulated Screw Implanted:Qty: 1 on 07/01/2017 by Renea Landrum DPM at OR [facility] Left: Foot [employer] [id number] T / / Trim-It Drill Pin, 2 X100 Mm Implanted:Qty: 1 on 07/01/2017 by Renea Landrum DPM at OR [facility] Left: Foot [employer] 12/30/2018 [id number] / / [id number] documented as of this encounter Visit Diagnoses Diagnosis Gastritis, presence of bleeding unspecified, unspecified chronicity, unspecified gastritis type documented in this encounter Advance Directives * Full Code (Latest Code Status on File) Date Activated Date Inactivated Comments 06/15/2016 6:35 AM 06/15/2016 1:12 PM This order r eflects the patients wishes and were consensually agreed upon. * Full Code Date Activated Date Inactivated Comments 06/01/2016 11:50 AM 06/01/2016 5:59 PM This order reflects the patients wishes and were consensually agreed upon. Care Teams Theology Professor Relationship Specialty Start Date End Date Vesta Reyes MD [address] [place] [address] PCP - General 08/16/07 documented as of this encounter
--- OUTSIDE RECORDS SUMMARY | 2024-06-12 07:49 | External Medical Summary ---
Author Name Unknown Address Unknown Organization K09:[facility] [place] [address] Laboratory Report Ordering Provider Test Date Status CHINYERE RHODES 04/02/2024 15:10:54 Final Observation Date Value Abnormality Reference (Units ) Status WBC, Total 04/02/2024 15:10:54 7.67 4.00-10.8 0 (K/uL) Final RBC 04/02/2024 15:10:54 4.62 3.85-5.15 (M/uL) Final Hemoglobin 04/02/2024 15:10:54 12.3 12.0-15.3 (g/dL) Final HCT 04/02/2024 15:10:54 40.1 36.0-45.2 (%) Final MCV 04/02/2024 15:10:54 86.8 81.5-97.5 (fL) Final MCH 04/02/2024 15:10:54 26.6 27.0-34.0 (pg) Final MCHC 04/02/2024 15:10:54 30.7 32.0-36.0 (g/dL) Final RDW 04/02/2024 15:10:54 16.4 11.5-15.5 (%) Final Platelets 04/02/2024 15:10:54 204 140-400 (K /uL) Final MPV 04/02/2024 15:10:54 9.2 6.6-11.1 ( fL) Final Performing Location [facility] [place] [address]
--- OUTSIDE RECORDS SUMMARY | 2024-06-12 07:49 | External Medical Summary | Summary of Care ---
Author Name Unknown Organization [facility] Address [address] [place] [address] Phone [phone] Care Team Providers Care Fortune Teller Name Role Phone Vesta Reyes MD Primary Care Provider + Reason for Visit * Reason Comments Outpatient Testing Encounter Details Date Type Department Care Team (Late st Contact Info) Description 04/02/2024 3:10 PM EST Laboratory [facility] [address] [place] [address] [place] [phone] [facility] [address] [place] [address] Chronic cough Allergies Active Allergy Reactions Criticality Noted Date Comments Pollen 11/05/2021 Hasn't been properly diagnosed, but has allergy symptoms worse in summer documented as of this encounter (statuses as of 04/02/2024) Medications VITAMIN D 1000 UNIT PO CAPS [...] by mouth as needed for Rhinitis. Active Pantoprazole Sodium 40 MG Oral Tablet Delayed Release (Protonix)Indica tions:Gastritis, presence of bleeding unspecified, unspecified chronicity, unspecified gastritis type Take 1 tablet by mouth once daily 90 Tablet 3 4 Active Rosuvastatin Calcium 40 MG Oral Tablet (Crestor)Indicat ions:Coronary artery disease involving [place] coronary artery of [place] heart without angina pectoris,S/P drug eluting [...] 4 Active Additional Information Patient taking differently:2 [place] NasalDAILY PRN, Reported on 04/02/2024 Losartan Potassium 25 MG Oral Tablet (Cozaar)Indicati ons:HTN, goal below 140/90 TAKE 1 TABLET BY MOUTH IN THE MORNING 90 Tablet 3 4 Active EQ Aspirin Adult Low Dose 81 MG Oral Tablet Delayed Release (aspirin enteric coated)Indicatio ns:Coronary artery disease involving [place] coronary artery of [place] heart without angina pectoris Take 1 tablet by mouth once daily 90 Tablet 1 4 Active Famotidine 20 MG Oral Tablet (Pepcid)Indicati ons:Hiatal hernia TAKE 1 TABLET BY MOUTH AT BEDTIME 90 Tablet 1 4 Active Azithromycin 250 MG Oral Tablet (Zithromax)Indic ations:Chronic cough Take 2 tabs by mouth on the first day, then 1 tab daily on days two through five 6 Tablet 4 04/07/20 24 Active documented as of this encounter (statuses as of 04/02/2024) Active Problems Problem Noted Date Diagnosed Date Prediabetes 11/10/2020 Overview: Per Prediabetes protocol HTN, goal below 140/90 07/06/2019 Dyslipidemia, goal LDL below 70 07/06/2019 Coronary artery disease invo lving [place] coronary artery of [place] heart without angina pectoris 05/29/2017 S/P drug eluting coronary stent placement 2017 History of non-ST elevation myocardial infarctio n (NSTEMI) 05/29/2017 Senile osteoporosis 03/10/2017 Gastroesophageal reflux disease without esophagi tis 03/10/2017 documented as of this encounter (statuses as of 04/02/2024) Resolved Problems Problem Noted Date Diagnosed Date [...] as of this encounter (statuses as of 04/02/2024) Immunizations Name Administration Dates Next Due COVID-19 mRNA, LNP-s, No Pre serve, 2-Dose Series ([employer]) 04/16/2021,07/14/2020,06/09/2020 Covid-19, Mrna, Lnp-s, Pf, B ivalent, [...] file Not on file Not on file 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 Not on file Not on file documented as of this encounter Plan of Treatment Upcoming Encounters Date Type Department Care Team (Late st Contact Info) Description 04/05/2024 1:15 PM EST Imaging Radiology [facility] [facility] [address] [facility] [place] [address] 07/23/2024 11:00 AM EDT Office Visit Cardiology, [facility] [address] [facility] [place] [address] Arnulfo Arias PA-C [address] [facility] [place] [address] 08/06/2024 2:30 PM EDT Imaging Radiology, [facility] [address] [facility] [address] 08/29/2024 9:20 AM EDT Office Visit General Internal Medicine [facility] [address] [facility] [place] [address] Vesta Reyes MD [address] [facility] [place] [address] 02/11/2025 2:00 PM EDT Office Visit Endocrinology [address] [place] [place] [phone] Jose Mendoza MD [address] [facility] [place] [address] Pending Results Name Type Priority Associated Diagnoses Date /Time CBC WITH WBC DIFFERENTIAL Lab Routine Chronic cough 04/02/2024 3:10 PM EST COMPREHENSIVE METABOLIC PANEL Lab Routine Chronic cough 04/02/2024 3:10 PM EST CBC Lab Routine Chronic cough 04/02/2024 3:10 PM EST DIFFERENTIAL, AUTOMATED Lab Routine Chronic cough 04/02/2024 3:10 PM EST Health Maintenance Due Date Last Done Comments Zoster Vaccines (2 of 3) 09/16/2011 07/22/2011 Adult Wellness Visit 05/17/2015 05/17/2014 COVID-19 Vaccine ( season) 2024 02/09/2022, 04/16/2021, 07/14/2020, Additional history exists Depression Screening 02/10/2024 02/09/2023 HbA1c 02/10/2024 02/09/2023, 07/31, 11/16/2021, Additional history exists Albumin/Creatinine Ratio 11/16/2024 11/16/2021, 09/30 GFR 02/22/2025 02/23/2024, 10/2023, 02/09/2023, Additional history exists DTap/Tdap Vaccines (3 - [...] this encounter Medical Devices Implanted Type Area Golf Club Facer Device Identifier Shelf Expiration Date Model / Serial / Lot Lens Intraoc 21.5 - [id number] - [id number] Implanted:Qty: 1 on 06/01/2016 by Scott Mckee MD at OR [facility] Right: Eye [employer] 12/30/2020 [id number] / [id number] / [id number] Lens Intraoc 20.0 - [id number] - [id number] Implanted:Qty: 1 on 06/15/2016 by Scott Mckee MD at OR [facility] Left: Eye [employer]OM[employer] 01/29/2021 [id number] / [id number] / [id number] 2.0 Cannulated Screw Implanted:Qty: 1 on 07/01/2017 by Renea Landrum DPM at OR [facility] Left: Foot [employer] AR-8720-20P T / / Trim-It Drill Pin, 2 X100 Mm Implanted:Qty: 1 on 07/01/2017 by Renea Landrum DPM at OR [facility] Left: Foot [employer] 12/30/2018 [id number] / / [id number] documented as of this encounter Visit Diagnoses Diagnosis Chronic cough Cough documented in this encounter Advance Directives * [...] and were consensually agreed upon. Care Teams Fortune Teller Relationship Specialty Start Date End Date Vesta Reyes MD [address] [place] [address] PCP - General 08/16/07 documented as of this encounter
--- OUTSIDE RECORDS SUMMARY | 2024-06-12 07:49 | External Medical Summary ---
Author Name Unknown Address Unknown Organization [facility] [address] [place] [address] Laboratory Report Ordering Provider Test Date Status CHINYERE RHODES 04/02/2024 15:10:54 Final Observation Date Value Abnormality Reference (Units ) Status BUN 04/02/2024 15:10:54 13 6-20 (mg/dL) Final Creatinine 04/02/2024 15:10:54 0.7 0.5-1.0 (mg/dL) Final Glomerular filtration rate/1.73 sq M.predicted [Volume Rate/Area] in Serum, Plasma or Blood by Creatinine-based formula (CKD-EPI) 04/02/2024 15:10:54 87 >=60 (mL/min) Final eGFR is calculated based on the CKD-EPI 2020 equation. Sodium 04/02/2024 15:10:54 139 135-146 (m mol/L) Final Potassium 04/02/2024 15:10:54 4.3 3.5-5.1 (m mol/L) Final Cl 04/02/2024 15:10:54 101 98-107 (mm ol/L) Final CO2 04/02/2024 15:10:54 26 22-32 (mmo l/L) Final Anion gap 04/02/2024 15:10:54 12 7-15 (mmol /L) Final Glucose 04/02/2024 15:10:54 109 70-120 (mg /dL) Final Albumin 04/02/2024 15:10:54 4.4 3.8-5.0 (g /dL) Final AST (Aspartate aminotransferase) 04/02/2024 15:10:54 19 10-35 (U/L) Final Alk Phos 04/02/2024 15:10:54 111 35-130 (U/ L) Final Bilirubin, Total 04/02/2024 15:10:54 0.7 <=1 .2 (mg/dL) Final Calcium 04/02/2024 15:10:54 9.9 8.4-10.2 ( mg/dL) Final Protein 04/02/2024 15:10:54 6.7 6.0-8.3 (g /dL) Final ALT (Alanine aminotransferase) 04/02/2024 15:10:54 17 10-35 (U/L) Final Performing Location [facility] [address] [place] [address]
--- OUTSIDE RECORDS SUMMARY | 2024-06-12 07:49 | External Medical Summary | Summary of Care ---
Author Name Unknown Organization [facility] [address] [facility] [address] Phone [phone] Care Team Providers Care Filter Helper Name Role Phone Vesta Reyes MD Primary Care Provider + Encounter Details Date Type Department Care Team (Latest Contact Info) Description 03/19/2024 10:30 AM EST Office Visit Audiology [facility] [address] [place] [id number] Chioma Oshea Au.D. [address] [place] [address] Bilateral sensorineural hearing loss* Allergies Active Allergy Reactions Criticality Noted Date Comments Pollen 11/05/2021 Hasn't been properly diagnosed, but has allergy symptoms worse in summer documented as of this encounter (statuses as of 03/19/2024) Medications VITAMIN D 1000 UNIT PO CAPS [...] once daily 90 Tablet 3 4 Active Zoster Vac Recomb Adjuvanted 50 MCG/0.5ML Intramuscular Suspension Reconstituted (Shingrix)Indicat ions:Need for shingles vaccine Inject 0.5 mL into a large muscle now and repeat dose in 60 to 180 days 1 Each 1 4 Active Additional Information Patient not taking.Reported on 02/29/2024 Rosuvastatin Calcium 40 MG Oral Tablet (Crestor)Indicati ons:Coronary artery disease involving absentee-shawnee coronary artery of absentee-shawnee heart without angina pectoris,S/P drug eluting coronary stent placement,History of non-ST elevation myocardial infarction (NSTEMI) Take 1 tablet by mouth once daily 90 Tablet 3 4 Active Albuterol Sulfate HFA 108 (90 Base) MCG/ACT Inhalation Aerosol Solution Q6H 4 Active Budesonide-Formot michelle Fumarate 80-4.5 MCG/ACT Inhalation Aerosol (Symbicort)Indica tions:Acute bronchitis, unspecified organism,Hiatal hernia,Wheezing-a ssociated respiratory infection (WARI),Abnormal CXR (chest x-ray) Inhale 2 Puffs by mouth in the morning and 2 Puffs before bedtime. 10.2 g 1 4 Active Additional Information Patient not taking.Reported on 11/07/2023 Metoprolol Succinate ER 25 MG Oral Tablet Extended Release 24 Hour (toPROL XL) Take 1 tablet by mouth once daily 90 Tablet 3 4 Active Fluticasone Propionate 50 MCG/ACT Nasal Suspension (Flonase)Indicati ons:Seasonal allergic rhinitis due to pollen Administer 2 Sprays into nostril in the morning. 48 g 4 Active Additional Information Patient taking differently:2 Loiza NasalDAILY PRN, Reported on 01/13/2024 Losartan Potassium 25 MG Oral Tablet (Cozaar)Indicatio ns:HTN, goal below 140/90 TAKE 1 TABLET BY MOUTH IN THE MORNING 90 Tablet 3 4 Active EQ Aspirin Adult Low Dose 81 MG Oral Tablet Delayed Release (aspirin enteric coated)Indication s:Coronary artery disease involving absentee-shawnee coronary artery of absentee-shawnee heart without angina pectoris Take 1 tablet by mouth once daily 90 Tablet 1 4 Active Famotidine 20 MG Oral Tablet (Pepcid)Indicatio ns:Hiatal hernia TAKE 1 TABLET BY MOUTH AT BEDTIME 90 Tablet 1 4 Active documented as of this encounter (statuses as of 03/19/2024) Active Problems Problem Noted Date Diagnosed Date Prediabetes 11/10/2020 Overview: Per Prediabetes protocol HTN, goal below 140/90 07/06/2019 Dyslipidemia, goal LDL below 70 07/06/2019 Coronary artery disease invo lving absentee-shawnee coronary artery of absentee-shawnee heart without angina pectoris 05/29/2017 S/P drug eluting coronary stent placement 2017 History of non-ST elevation myocardial infarctio n (NSTEMI) 05/29/2017 Senile osteoporosis 03/10/2017 Gastroesophageal reflux disease without esophagi tis 03/10/2017 documented as of this encounter (statuses as of 03/19/2024) Resolved Problems Problem Noted Date Diagnosed Date [...] as of this encounter (statuses as of 03/19/2024) Immunizations Name Administration Dates Next Due COVID-19 mRNA, LNP-s, No Pre serve, 2-Dose Series (BellaDati) 04/16/2021,07/14/2020,06/09/2020 Covid-19, Mrna, Lnp-s, Pf, B ivalent, [...] file Not on file Not on file GENERAL MAGISTRATE Not on file Not on file Not on file documented as of this encounter Progress Notes * Chioma Oshea Au.D. - 03/19/2024 10:49 AM EST Hearing Aid Check - 30 Day Reason for Visit Donita came in today for a 30 day hearing aid check. She was fit with Binaural licensing coordinator in the ear hearing aids. She reported that when her speaks to her (from across the living room in his recliner) or while he is reading a paper etc., she still struggles to make out what he is saying. At times, she feels the car road noise other ambient sounds are too loud. When she goes to restaurants/ gathers with high school classmates, she finds her self hearing mostly background noise. Action The aids were checked and cleaned. Connected to [employer] software. Soft/ Moderate/Loud low frequencygain reduced 2 dB. Added program 2 for speech in noise. Reviewed program sweeney button a VC button. Overall, despite a few situations where Donita hopes to hear better, she is very satisfied with her he aring aids and reports her hearing is much better than before. Plan Donita was advised to call the clinic and schedule an appointment if she has any difficulty with theaids or would like any adjustments made to the aids. She is aware that this is the end of the 30 day trial period. Cody Hanson, CCC-A documented in this encounter Plan of Treatment Upcoming Encounters Date Type Department Care Team (Late st Contact Info) Description 07/23/2024 11:00 AM EDT Office Visit Cardiology, [address] [place] [address] Arnulfo Arias PA-C [address] [place] [address] 08/06/2024 2:30 PM EDT Imaging Radiology, [facility] [address] [facility] [place] [address] 08/29/2024 9:20 AM EDT Office Visit General Internal Medicine [facility] [address] [facility] [place] [address] Vesta Reyes MD [address] [facility] [address] [place] [address] 02/11/2025 2:00 PM EDT Office Visit Endocrinology [facility] [place] [address] [place] [phone] [facility] [address] [facility] [address] Health Maintenance Due Date Last Done Comments Zoster Vaccines (2 of 3) 09/16/2011 07/22/2011 Adult Wellness Visit 05/17/2015 05/17/2014 COVID-19 Vaccine ( season) 2024 02/09/2022, 04/16/2021, 07/14/2020, Additional history exists Depression Screening 02/10/2024 02/09/2023 HbA1c 02/10/2024 02/09/2023, 07/31, 11/16/2021, Additional history exists Albumin/Creatinine Ratio 11/16/2024 11/16/2021, 09/30 GFR 02/22/2025 02/23/2024, 03/0 10/2023, 02/09/2023, Additional history exists DTap/Tdap Vaccines [...] this encounter Medical Devices Implanted Type Area Diesel Maintenance Technician Device Identifier Shelf Expiration Date Model / Serial / Lot Lens Intraoc 21.5 - [id number] - [id number] Implanted:Qty: 1 on 06/01/2016 by Scott Mckee MD at OR [facility] Right: Eye [employer] 12/30/2020 [id number] / [id number] / [id number] Lens Intraoc 20.0 - [id number] - [id number] Implanted:Qty: 1 on 06/15/2016 by Scott Mckee MD at OR [facility] Left: Eye [employer] 01/29/2021 [id number] / [id number] / [id number] 2.0 Cannulated Screw Implanted:Qty: 1 on 07/01/2017 by Renea Landrum DPM at OR [facility] Left: Foot [employer] [id number] T / / Trim-It Drill Pin, 2 X100 Mm Implanted:Qty: 1 on 07/01/2017 by Renea Landrum DPM at OR [facility] Left: Foot [employer] 12/30/2018 [id number] / / [id number] documented as of this encounter Visit Diagnoses Diagnosis Bilateral sensorineural hearing loss- Primary Sensorineural hearing loss, bilateral documented in this encounter Advance Directives * [...] and were consensually agreed upon. Care Teams Filter Helper Relationship Specialty Start Date End Date Vesta Reyes MD [address] [place] [address] PCP - General 08/16/07 documented as of this encounter
--- OUTSIDE RECORDS SUMMARY | 2024-06-12 07:49 | External Medical Summary ---
Author Name Unknown Address Unknown Organization K09:[facility] [place] [address] Laboratory Report Ordering Provider Test Date Status CHINYERE RHODES 04/02/2024 15:10:54 Final Observation Date Value Abnormality Reference (Units ) Status SYNC LEUKOCYTES IN BLOOD BY AUTOMATED COUNT 04/02/2024 15:10:54 7.67 4.00-10.80 (K/uL) Final Segs 04/02/2024 15:10:54 54.8 40.0-75.0 (%) Final Lymphs % 04/02/2024 15:10:54 33.8 18.0-42.0 (%) Final Monos 04/02/2024 15:10:54 6.1 1.0-11.0 (%) Final Eosinophils 04/02/2024 15:10:54 5.0 0.0-6.0 (%) Final Basos 04/02/2024 15:10:54 0.3 0.0-2.0 (%) Final Absolute Segs 04/02/2024 15:10:54 4.21 1.80-7.70 (K/uL) Final Lymphs, absolute 04/02/2024 15:10:54 2.59 1.00-4.80 (K/ul) Final Monos, Abs 04/02/2024 15:10:54 0.47 0.00-1.10 (K/uL) Final Eos, Abs 04/02/2024 15:10:54 0.38 0.00-0.70 (K/uL) Final Basos, Abs 04/02/2024 15:10:54 0.02 0.00-0.20 (K/uL) Final Performing Location [facility] [place] [address]
--- OUTSIDE RECORDS SUMMARY | 2024-06-12 07:49 | External Medical Summary | Summary of Care ---
Author Name Unknown Organization [facility] Address [address] [place] [address] Phone [phone] Care Team Providers Care Lithographic Stripper Name Role Phone Vesta Reyes MD Primary Care Provider + Reason for Referral * Precert (Within 10 days (routine)) - Authorized Specialty Diagnoses / Procedures Referred By Contac t Referred To Contact Radiology Diagnoses Chronic cough Procedures CT CHEST W CONTRAST Jacinta Reno MD [address] [place] [address] Phone: tel: fax: Referral ID Status Reason Start Date Expiration Date V isits Requested Visits Authorized [id number] Authorized 04/02/2024 999 999 Reason for Visit * Reason Comments Acute Encounter Details Date Type Department Care Team (Late st Contact Info) Description 04/02/2024 2:40 PM EST Office Visit Family Practice [facility] Joana Ricci [address] [place] [address] Jacinta Reno MD [address] [place] [id number] Chronic cough*; HTN, goal below 140/90; Coronary artery disease involving [place] coronary artery of [place] heart without angina pectoris; Prediabetes; Dyslipidemia, goal LDL below 70; Gastroesophageal reflux disease without esophagitis Allergies Active Allergy Reactions Criticality Noted Date Comments Pollen 11/05/2021 Hasn't been properly diagnosed, but has allergy symptoms worse in summer documented as of this encounter (statuses as of 04/13/2024) Medications VITAMIN D 1000 UNIT PO CAPS [...] once daily 90 Tablet 3 05/16/19 24 Active Rosuvastatin Calcium 40 MG Oral Tablet (Crestor)Indicat ions:Coronary artery disease involving [place] coronary artery of [place] heart without angina pectoris,S/P drug eluting coronary stent placement,Histor y of non-ST elevation myocardial infarction (NSTEMI) Take 1 tablet by mouth once daily 90 Tablet 3 08/29/19 24 Active Albuterol Sulfate HFA 108 (90 Base) MCG/ACT Inhalation Aerosol Solution Q6H 08/30/19 24 Active Budesonide-Formo terol Fumarate 80-4.5 MCG/ACT Inhalation [...] 24 Active Additional Information Patient taking differently:2 [place] NasalDAILY PRN, Reported on 04/02/2024 Losartan Potassium 25 MG Oral Tablet (Cozaar)Indicati ons:HTN, goal below 140/90 TAKE 1 TABLET BY MOUTH IN THE MORNING 90 Tablet 3 12/29/19 24 Active EQ Aspirin Adult Low Dose 81 MG Oral Tablet Delayed Release (aspirin enteric coated)Indicatio ns:Coronary artery disease involving [place] coronary artery of [place] heart without angina pectoris Take 1 tablet by mouth once daily 90 Tablet 1 02/15/20 24 Active Famotidine 20 MG Oral Tablet (Pepcid)Indicati ons:Hiatal hernia TAKE 1 TABLET BY MOUTH AT BEDTIME 90 Tablet 1 02/27/20 24 Active Zoster Vac Recomb Adjuvanted 50 MCG/0.5ML Intramuscular Suspension Reconstituted (Shingrix)Indica tions:Need for shingles vaccine Inject 0.5 mL into a large muscle now and repeat dose in 60 to 180 days 1 Each 1 08/25/19 24 2023 Discontinued Loteprednol Etabonate 0.5 % Ophthalmic Suspension (Lotemax) Instill 1 Drop into both eyes in the morning and 1 Drop at noon and 1 Drop in the evening and 1 Drop before bedtime. 01/10/20 24 2023 Discontinued Arexvy 120 MCG/0.5ML Intramuscular Suspension Reconstituted (RSV PreF3 Vac Recomb Adjuvanted) Inject 0.5 mL into a large muscle once for 1 dose. 1 Each 4 11:19 AM EST 03/05/20 24 2023 Discontinued Azithromycin 250 MG Oral Tablet (Zithromax)Indic ations:Chronic cough Take 2 tabs by mouth on the first day, then 1 tab daily on days two through five 6 Tablet 04/02/20 24 2023 documented as of this encounter (statuses as of 04/13/2024) Active Problems Problem Noted Date Diagnosed Date [...] as of this encounter (statuses as of 04/13/2024) Resolved Problems Problem Noted Date Diagnosed Date [...] as of this encounter (statuses as of 04/13/2024) Immunizations Name Administration Dates Next Due COVID-19 mRNA, LNP-s, No Pre serve, 2-Dose Series ([employer]) 04/16/2021,07/14/2020,06/09/2020 Covid-19, Mrna, Lnp-s, Pf, B [...] file Not on file Not on file VISITOR INFORMATION ASSISTANT Not on file Not on file Not on file documented as of this encounter Last Filed Vital Signs Vital Sign Reading Time Taken Comments Blood Pressure 124/62 04/02/2024 2:35 PM EST Pulse 78 04/02/2024 2:35 PM EST Temperature 37.3 C (99.2 F) 04/02/2024 2:[address] Respiratory Rate 17 04/02/2024 2:35 PM EST Oxygen Saturation 97% 04/02/2024 2:35 PM EST Inhaled Oxygen Concentration - - Weight 70.8 kg (156 lb) 04/02/2024 2:35 PM EST Height - - Body Mass Index 29 11/07/2023 12:53 PM EDT documented in this encounter Progress Notes * Jacinta Reno MD - 04/13/2024 1:16 PM EST Subjective Chief Complaint Patient presents with Acute Donita Zan Brandon is a 83 year old female. The following issues were addressed today: History of Present Illness The patient, with a history of hiatal hernia, presents with a persistent cough that started in early December. Initially, the patient experienced symptoms of a cold, including a runny nose and sneezing. However, these symptoms have since subsided, and the cough has become the primary concern. The cough is described as a choking cough, with minimal productive sputum. The patient reports feeling worn out due to the persistent coughing and has been using cough drops to manage the symptoms. The patient also reports a slight shortness of breath, particularly when walking up steps. The patient hasa history of pneumonia diagnosed six months ago, which was treated with antibiotics. The patient also had a bout of COVID-19 in 2019, which was managed with Paxlovid. The patient has been feeling cold at night and sweating in the morning. The patient is scheduled for a tooth extraction tomorrow andis concerned about the ongoing cough. Review of Systems: See HPI Objective BP 124/62 | Pulse 78 | Temp 99.2 F (37.3 C) (Tympanic) | Resp 17 | Wt 156 lb (70.8 kg) | SpO2 97% | BMI 29.00 kg/m | BSA 1.75 m Wt Readings from Last 3 Encounters: 04/02/24 156 lb (70.8 kg) 02/29/24 158 lb 12.8 oz (72 kg) 02/06/24 158 lb (71.7 kg) BP Readings from Last 3 Encounters: 04/02/24 124/62 02/29/24 138/68 02/06/24 138/72 General: Well-appearing, no acute distress Cardiovascular: Regular rate and rhythm, no murmur Respiratory: Good respiratory effort, breath sounds equal and clear to auscultation bilaterally Neurological: Alert and oriented, no focal deficits noted Psychiatric: Appropriate mood and affect Assessment & Plan Chronic Cough: Persistent cough for three months with minimal sputum production. No significant shortness of breath. Lungs clear on auscultation. History of hiatal hernia and acid reflux. -Order CT scan of chest to further evaluate. -Start Azithromycin to cover for atypical pneumonia. -Continue current acid reflux medications (Pantoprazole and Famotidine). Dental Procedure: Scheduled for tooth extraction. Concerns about potential infection due to chroniccough. -Advise patient that dental procedure can proceed as risk of infection is low at this point. Associated Visit Diagnoses and Orders 1. Chronic cough - CBC WITH WBC DIFFERENTIAL; Future - COMPREHENSIVE METABOLIC PANEL; Future - CT CHEST W CONTRAST - Azithromycin 250 MG Oral Tablet (Zithromax); Take 2 tabs by mouth on the first day, then 1 tab daily on days two through five Dispense: 6 Tablet; Refill: 0 2. HTN, goal below 140/90 Well-controlled. Continue current medications. 3. Coronary artery disease involving [place] coronary artery of [place] heart without angina pectoris Stable. Continue current medications. 4. Prediabetes Stable. 5. Dyslipidemia, goal LDL below 70 Stable. Continue current medications. 6. Gastroesophageal reflux disease without esophagitis Continue current medications. Return if symptoms worsen or fail to improve. This note was electronically signed by Jacinta Reno MD Text in this note was generated using an [employer] documentation service. I discussed the use of a device to record and summarize our discussion today. All persons present during the encounter consented to its use. documented in this encounter Nursing Notes * Francesca Manley LPN - 04/02/2024 2:32 PM EST Patient presents in office today with C/O having sinus concerns since December. Runny nose, sneezing, cough. Last week cough started to get worse. Tightness in chest. Fatigue Has taken several OTC meds nothing helping Having tooth extraction tomorrow. documented in this encounter Plan of Treatment Upcoming Encounters Date Type Department Care Team (Late st Contact Info) Description 07/23/2024 11:00 AM EDT Office Visit Cardiology, [facility] [address] [place] [address] Arnulfo Arias PA-C [address] [place] [address] 08/06/2024 2:30 PM EDT Imaging Radiology [facility] [address] [place] [phone] 08/29/2024 9:20 AM EDT Office Visit General Internal Medicine [facility] [address] [place] [address] Vesta Reyes MD [address] [place] [address] 02/11/2025 2:00 PM EDT Office Visit Endocrinology [address] [place] [phone] Jose Mendoza MD [address] [place] [address] Health Maintenance Due Date Last Done [...] this encounter Medical Devices Implanted Type Area Paradichlorobenzene Tender Device Identifier Shelf Expiration Date Model / Serial / Lot Lens Intraoc 21.5 - [id number] - [id number] Implanted:Qty: 1 on 06/01/2016 by Scott Mckee MD at OR [facility] Right: Eye [employer] 12/30/2020 [id number] / [id number] / [id number] Lens Intraoc 20.0 - [id number] - [id number] Implanted:Qty: 1 on 06/15/2016 by Scott Mckee MD at OR [facility] Left: Eye [employer] 01/29/2021 [id number] / [id number] / [id number] 2.0 Cannulated Screw Implanted:Qty: 1 on 07/01/2017 by Renea Landrum DPM at OR [facility] Left: Foot [employer] AR-8720-20P T / / Trim-It Drill Pin, 2 X100 Mm Implanted:Qty: 1 on 07/01/2017 by Renea Landrum DPM at OR [facility] Left: Foot [employer] 12/30/2018 [id number] / / [id number] documented as of this encounter Procedures Procedure Name Priority Date/Time Associated Diagnosis Comments CT CHEST W CONTRAST Routine 04/05/2024 1 :15 PM EST Chronic cough documented in this encounter Results * CT CHEST W CONTRAST (04/05/2024 1:15 PM EST) Anatomical Region Laterality Modality Chest, Body, Cardio Computed Sonido ography 04/10/2024 10:0 3 AM EST Impressions 04/10/2024 10:00 AM EST IMPRESSION 1. No acute findings in the chest. 2. A few small pulmonary nodules measuring up to 5 millimeters. For low risk patients, no routine follow-up is recommended. For high-risk patients optional follow-up CT can be obtained as 12 months. 3. Large hiatal hernia. Narrative 04/10/2024 10:00 AM EST EXAM EXAM: CT CHEST W CONTRAST DATE and TIME: 04/05/2024 1:15 pm HISTORY CLINICAL INFORMATION: Chronic cough x 3 months TECHNIQUE IV Contrast: Intravenous contrast was administered. COMPARISON XR CHEST 2 VIEWS, ACC: [id number], dated 2022-09-01 10:18:13 FINDINGS LINES AND DEVICES: None. LUNGS: 3 millimeter right upper lobe nodule on image 93, 2 millimeter right upper lobe nodule on image 98, and 5 millimeter left lower lobe nodule on image 111 series 8. No consolidation. Mild basilar atelectasis. LARGE AIRWAYS: The central airways are patent. PLEURA: There is no pleural effusion or pneumothorax. HEART AND MEDIASTINUM: The heart is normal in size. There is no pericardial effusion. Severe coronary artery calcification. Large hiatal hernia. VESSELS: The thoracic aorta and central pulmonary arteries are unremarkable. There is mild atherosclerotic calcification. LYMPH NODES: There are no enlarged or suspicious thoracic lymph nodes. CHEST WALL/SOFT TISSUES: Unremarkable. UPPER ABDOMEN: Cholecystectomy. He prominent periampullary duodenal diverticulum. This BONES: Degenerative changes in the spine. Mild chronic appearing superior endplate compression fracture of T12. Mild retrolisthesis of T12 on L1. Procedure Note Robert Barreto MD - 04/10/2024 EXAM EXAM: CT CHEST W CONTRAST DATE and TIME: 04/05/2024 1:15 pm HISTORY CLINICAL INFORMATION: Chronic cough x 3 months TECHNIQUE IV Contrast: Intravenous contrast was administered. COMPARISON XR CHEST 2 VIEWS, ACC: [id number], dated 2022-09-01 10:18:13 FINDINGS LINES AND DEVICES: None. LUNGS: 3 millimeter right upper lobe nodule on image 93, 2 millimeterright upper lobe nodule on image 98, and 5 millimeter left lower lobenodule on image 111 series 8. No consolidation. Mild basilaratelectasis. LARGE AIRWAYS: The central airways are patent. PLEURA: There is no pleural effusion or pneumothorax. HEART AND MEDIASTINUM: The heart is normal in size. There is nopericardial effusion. Severe coronary artery calcification. Large hiatal hernia. VESSELS: The thoracic aorta and central pulmonary arteries areunremarkable. There is mild atherosclerotic calcification. LYMPH NODES: There are no enlarged or suspicious thoracic lymph nodes. CHEST WALL/SOFT TISSUES: Unremarkable. UPPER ABDOMEN: Cholecystectomy. He prominent periampullary duodenaldiverticulum. This BONES: Degenerative changes in the spine. Mild chronic appearing superiorendplate compression fracture of T12. Mild retrolisthesis of T12 on L1. IMPRESSION IMPRESSION 1. No acute findings in the chest. 2. A few small pulmonary nodules measuring up to 5 millimeters. For lowrisk patients, no routine follow-up is recommended. For high-riskpatients optional follow-up CT can be obtained as 12 months. 3. Large hiatal hernia. Jacinta Reno MD RAD CT Final Result * COMPREHENSIVE METABOLIC PANEL (04/02/2024 3:10 PM EST) BUN 13 6 - 20 mg/dL 04/02/2024 4:33 PM EST [facility] [place] 56- CREATININE 0.7 0.5 - 1.0 mg/dL 04/02/2024 4:33 PM EST [facility] [place] 56- EGFR 87 >=60 mL/min 04/02/2024 4:33 PM EST [facility] 56- Comment:eGFR is calculated b ased on the CKD-EPI 2020 equation. SODIUM 139 135 - 146 mmol/L 04/02/2024 4:33 PM EST [facility] [place] 56- POTASSIUM 4.3 3.5 - 5.1 mmol/L 04/02/2024 4:33 PM EST [facility] 56- CHLORIDE 101 98 - 107 mmol/L 04/02/2024 4:[address] CO2 26 22 - 32 mmol/L 04/02/2024 4:33 PM [facility] 56 ANION GAP 12 7 - 15 mmol/L 04/02/2024 4:[address] GLUCOSE 109 70 - 120 mg/dL 04/02/2024 4:[address] Albumin 4.4 3.8 - 5.0 g/dL 04/02/2024 4:[address] AST 19 10 - 35 U/L 04/02/2024 4:[address] Alkaline Phosphatase 111 35 - 130 U/L 04/02/2024 4:[address] Bilirubin, Total 0.7 <=1.2 mg/dL 04/02/2024 4:[address] CALCIUM 9.9 8.4 - 10.2 mg/dL 04/02/2024 4:[address] Protein 6.7 6.0 - 8.3 g/dL 04/02/2024 4:[address] ALT 17 10 - 35 U/L 04/02/2024 4:[address] Blood Venous blood specimen / Unknown Venipuncture / Unknown 04/02/2024 3:10 PM EST 04/02/2024 3:10 PM EST us Jacinta Reno MD LAB BLOOD ORDERABLES Final Resu lt [place] [address] [address] [place] [address] documented in this encounter Visit Diagnoses Diagnosis Chronic cough- Primary Cough HTN, goal below 140/90 Unspecified essential hypertension Coronary artery disease involving [place] coronary artery of [place] heart without angina pectoris Prediabetes Other abnormal glucose Dyslipidemia, goal LDL below 70 Other and unspecified hyperlipidemia Gastroesophageal reflux disease without esophagitis Esophageal reflux documented in this encounter Advance Directives * [...] and were consensually agreed upon. Care Teams Lithographic Stripper Relationship Specialty Start Date End Date Vesta Reyes MD [address] [place] [address] PCP - General 08/16/07 documented as of this encounter"
--- OUTSIDE RECORDS SUMMARY | 2024-06-12 07:49 | External Medical Summary | Summary of Care ---
Author Name Unknown Organization [facility] Address [address] [place] [address] Phone [phone] Care Team Providers Care Fisheries Inspector Name Role Phone Vesta Reyes MD Primary Care Provider + Reason for Visit * Reason Onset Date Comments Test Results 04/10/2024 Unexpected or In determinate Result Encounter Details Date Type Department Care Team (Late st Contact Info) Description 04/10/2024 Telephone Laboratory, [place] [address] [place] [address] Jacinta Reno MD [address] [place] [address] Test Results (Unexpected or Indeterminate ... Allergies Active Allergy Reactions Criticality Noted Date Comments Pollen 11/05/2021 Hasn't been properly diagnosed, but has allergy symptoms worse in summer documented as of this encounter (statuses as of 04/12/2024) Medications VITAMIN D 1000 UNIT PO CAPS [...] Oral Tablet (Crestor)Indicat ions:Coronary artery disease involving [place] coronary artery of [place] heart without angina pectoris,S/P drug eluting coronary [...] 4 Active Additional Information Patient taking differently:2 [place] NasalDAILY PRN, Reported on 04/02/2024 Losartan Potassium 25 MG Oral Tablet (Cozaar)Indicati ons:HTN, goal below 140/90 TAKE 1 TABLET BY MOUTH IN THE MORNING 90 Tablet 3 4 Active EQ Aspirin Adult Low Dose 81 MG Oral Tablet Delayed Release (aspirin enteric coated)Indicatio ns:Coronary artery disease involving [place] coronary artery of [place] heart without angina pectoris Take 1 tablet by mouth once daily 90 Tablet 1 4 Active Famotidine 20 MG Oral Tablet (Pepcid)Indicati ons:Hiatal hernia TAKE 1 TABLET BY MOUTH AT BEDTIME 90 Tablet 1 4 Active documented as of this encounter (statuses as of 04/12/2024) Active Problems Problem Noted Date Diagnosed Date Prediabetes 11/10/2020 Overview: Per Prediabetes protocol HTN, goal below 140/90 07/06/2019 Dyslipidemia, goal LDL below 70 07/06/2019 Coronary artery disease invo lving [place] coronary artery of [place] heart without angina pectoris 05/29/2017 S/P drug eluting coronary stent placement 2017 History of non-ST elevation myocardial infarctio n (NSTEMI) 05/29/2017 Senile osteoporosis 03/10/2017 Gastroesophageal reflux disease without esophagi tis 03/10/2017 documented as of this encounter (statuses as of 04/12/2024) Resolved Problems Problem Noted Date Diagnosed Date [...] as of this encounter (statuses as of 04/12/2024) Immunizations Name Administration Dates Next Due COVID-19 mRNA, LNP-s, No Pre serve, 2-Dose Series ([employer]) 04/16/2021,07/14/2020,06/09/2020 Covid-19, Mrna, Lnp-s, Pf, B ivalent, 30 Mcg, IM, 12 yrs and above ([employer]) 02/09/2022 Pneumococcal Conjugate Vacc, 13 Valent [...] file Not on file 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 Study Type:CT CHEST W CONTRAST Date of Study: 04/05/2024 IMPRESSION 1. No acute findings in the chest. 2. A few small pulmonary nodules measuring up to 5 millimeters. For low risk patients, no routine follow-up is recommended. For high-risk patients optional follow-up CT can be obtained as 12 months. 3. Large hiatal hernia. Please respond to this encounter to acknowledge receipt of this message and take responsibility to ensure this report is reviewed. Thank you, MCKENZIE Barker Client Service Rep [facility] documented in this encounter Plan of Treatment Upcoming Encounters Date Type Department Care Team (Late st Contact Info) Description 07/23/2024 11:00 AM EDT Office Visit Cardiology, [facility] [address] [facility] [place] [address] Arnulfo Arias PA-C [address] [place] [address] 08/06/2024 2:30 PM EDT Imaging Radiology, [facility] [address] [facility] [place] [address] 08/29/2024 9:20 AM EDT Office Visit [facility] Internal [facility] [address] [place] [address] Vesta Reyes MD [address] [facility] [place] [address] 02/11/2025 2:00 PM EDT Office Visit Endocrinology [address] [place] [address] Jose Mendoza MD [address] [place] [address] Health Maintenance Due Date Last Done [...] this encounter Medical Devices Implanted Type Area Corporate Fitness Program Coordinator Device Identifier Shelf Expiration Date Model / Serial / Lot Lens Intraoc 21.5 - [id number] - [id number] Implanted:Qty: 1 on 06/01/2016 by Scott Mckee MD at OR [facility] Right: Eye [employer] 12/30/2020 [id number] / [id number] / [id number] Lens Intraoc 20.0 - [id number] - [id number] Implanted:Qty: 1 on 06/15/2016 by Scott Mckee MD at OR [facility] Left: Eye [employer] 01/29/2021 [id number] / [id number] / [id number] 2.0 Cannulated Screw Implanted:Qty: 1 on 07/01/2017 by Renea Landrum DPM at OR [facility] Left: Foot [employer] [id number] T / / Trim-It Drill Pin, 2 X100 Mm Implanted:Qty: 1 on 07/01/2017 by Renea Landrum DPM at OR [facility] Left: Foot [employer] 12/30/2018 [id number] / / [id number] documented as of this encounter Advance Directives [...] and were consensually agreed upon. Care Teams Fisheries Inspector Relationship Specialty Start Date End Date Vesta Reyes MD [address] [facility] [place] [address] PCP - General 08/16/07 documented as of this encounter
--- OUTSIDE RECORDS SUMMARY | 2024-06-12 07:49 | External Medical Summary | Summary of Care ---
Author Name Unknown Organization [facility] Address [address] [place] [address] Phone [phone] Care Team Providers Care Delivery Merchandiser Name Role Phone Vesta Reyes MD Primary Care Provider + Reason for Visit * Reason Onset Date Comments Test Results 04/10/2024 Unexpected or In determinate Result Encounter Details Date Type Department Care Team (Late st Contact Info) Description 04/10/2024 Telephone Laboratory, [place] [address] [place] [address] Jacinta Reno MD [address] [place] [address] Test Results (Unexpected or Indeterminate ... Allergies Active Allergy Reactions Criticality Noted Date Comments Pollen 11/05/2021 Hasn't been properly diagnosed, but has allergy symptoms worse in summer documented as of this encounter (statuses as of 04/10/2024) Medications VITAMIN D 1000 UNIT PO CAPS [...] Oral Tablet (Crestor)Indicat ions:Coronary artery disease involving kashia coronary artery of kashia heart without angina pectoris,S/P drug eluting coronary [...] 4 Active Additional Information Patient taking differently:2 [place] NasalDAILY PRN, Reported on 04/02/2024 Losartan Potassium 25 MG Oral Tablet (Cozaar)Indicati ons:HTN, goal below 140/90 TAKE 1 TABLET BY MOUTH IN THE MORNING 90 Tablet 3 4 Active EQ Aspirin Adult Low Dose 81 MG Oral Tablet Delayed Release (aspirin enteric coated)Indicatio ns:Coronary artery disease involving kashia coronary artery of kashia heart without angina pectoris Take 1 tablet by mouth once daily 90 Tablet 1 4 Active Famotidine 20 MG Oral Tablet (Pepcid)Indicati ons:Hiatal hernia TAKE 1 TABLET BY MOUTH AT BEDTIME 90 Tablet 1 4 Active documented as of this encounter (statuses as of 04/10/2024) Active Problems Problem Noted Date Diagnosed Date Prediabetes 11/10/2020 Overview: Per Prediabetes protocol HTN, goal below 140/90 07/06/2019 Dyslipidemia, goal LDL below 70 07/06/2019 Coronary artery disease invo lving kashia coronary artery of kashia heart without angina pectoris 05/29/2017 S/P drug eluting coronary stent placement 2017 History of non-ST elevation myocardial infarctio n (NSTEMI) 05/29/2017 Senile osteoporosis 03/10/2017 Gastroesophageal reflux disease without esophagi tis 03/10/2017 documented as of this encounter (statuses as of 04/10/2024) Resolved Problems Problem Noted Date Diagnosed Date [...] as of this encounter (statuses as of 04/10/2024) Immunizations Name Administration Dates Next Due COVID-19 mRNA, LNP-s, No Pre serve, 2-Dose Series ([employer]) 04/16/2021,07/14/2020,06/09/2020 Covid-19, Mrna, Lnp-s, Pf, B ivalent, 30 Mcg, IM, 12 yrs and above ([employer]) 02/09/2022 Pneumococcal Conjugate Vacc, 13 Valent (Prevnar) [...] file Not on file 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 [address] [address] 07/23/2024 11:00 AM EDT Office Visit Cardiology, [facility] [address] [address] Arnulfo Arias PA-C [address] [address] 08/06/2024 2:30 PM EDT [address] [address] 08/29/2024 9:20 AM EDT Office Visit General Internal Medicine [facility] [address] [facility] [address] [place] [address] Vesta Reyes MD [address] [place] [address] 02/11/2025 2:00 PM EDT Office Visit Endocrinology [address] [place] [place] [address] Jose Mendoza MD [address] [place] [address] Health Maintenance Due Date Last Done [...] this encounter Medical Devices Implanted Type Area Delineator Device Identifier Shelf Expiration Date Model / Serial / Lot Lens Intraoc 21.5 - [id number] - [id number] Implanted:Qty: 1 on 06/01/2016 by Scott Mckee MD at OR [facility] Right: Eye [employer]OMB 12/30/2020 [id number] / [id number] / [id number] Lens Intraoc 20.0 - [id number] - [id number] Implanted:Qty: 1 on 06/15/2016 by Scott Mckee MD at OR [facility] Left: Eye BAUSCH & LOMB 01/29/2021 [id number] / [id number] / [id number] 2.0 Cannulated Screw Implanted:Qty: 1 on 07/01/2017 by Renea Landrum DPM at OR [facility] Left: Foot [employer] AR-8720-20P T / / Trim-It Drill Pin, 2 X100 Mm Implanted:Qty: 1 on 07/01/2017 by Renea Landrum DPM at OR [facility] Left: Foot [employer] 12/30/2018 [id number] / / [id number] documented as of this encounter Advance Directives [...] and were consensually agreed upon. Care Teams Delivery Merchandiser Relationship Specialty Start Date End Date Vesta Reyes MD [address] [facility] [place] [address] PCP - General 08/16/07 documented as of this encounter
--- OUTSIDE RECORDS SUMMARY | 2024-06-12 07:49 | External Medical Summary | Summary of Care ---
Author Name Unknown Organization [facility] Address [address] [place] [address] Phone [phone] Care Team Providers Care Photogrammetry Airplane Pilot Name Role Phone Vesta Reyes MD Primary Care Provider + Reason for Visit * Reason Onset Date Comments Test Results 04/10/2024 Unexpected or In determinate Result Encounter Details Date Type Department Care Team (Late st Contact Info) Description 04/10/2024 Telephone Laboratory, [place] [address] [place] [address] Jacinta Reno MD [address] [place] [address] Test Results (Unexpected or Indeterminate ... Allergies Active Allergy Reactions Criticality Noted Date Comments Pollen 11/05/2021 Hasn't been properly diagnosed, but has allergy symptoms worse in summer documented as of this encounter (statuses as of 04/23/2024) Medications VITAMIN D 1000 UNIT PO CAPS [...] Oral Tablet (Crestor)Indicat ions:Coronary artery disease involving chicken ranch coronary artery of chicken ranch heart without angina pectoris,S/P drug eluting coronary [...] 24 Active Additional Information Patient taking differently:2 [place] NasalDAILY PRN, Reported on 04/02/2024 Losartan Potassium 25 MG Oral Tablet (Cozaar)Indicati ons:HTN, goal below 140/90 TAKE 1 TABLET BY MOUTH IN THE MORNING 90 Tablet 3 12/29/19 24 Active EQ Aspirin Adult Low Dose 81 MG Oral Tablet Delayed Release (aspirin enteric coated)Indicatio ns:Coronary artery disease involving chicken ranch coronary artery of chicken ranch heart without angina pectoris Take 1 tablet by mouth once daily 90 Tablet 1 02/15/20 24 Active Famotidine 20 MG Oral Tablet (Pepcid)Indicati ons:Hiatal hernia TAKE 1 TABLET BY MOUTH AT BEDTIME 90 Tablet 1 02/27/20 24 Active Loteprednol Etabonate 0.5 % Ophthalmic Suspension (Lotemax) [...] 11:19 AM EST 03/05/20 24 2023 Discontinued documented as of this encounter (statuses as of 04/23/2024) Active Problems Problem Noted Date Diagnosed Date Prediabetes 11/10/2020 Overview: Per Prediabetes protocol HTN, goal below 140/90 07/06/2019 Dyslipidemia, goal LDL below 70 07/06/2019 Coronary artery disease invo lving chicken ranch coronary artery of chicken ranch heart without angina pectoris 05/29/2017 S/P drug eluting coronary stent placement 2017 History of non-ST elevation myocardial infarctio n (NSTEMI) 05/29/2017 Senile osteoporosis 03/10/2017 Gastroesophageal reflux disease without esophagi tis 03/10/2017 documented as of this encounter (statuses as of 04/23/2024) Resolved Problems Problem Noted Date Diagnosed Date [...] as of this encounter (statuses as of 04/23/2024) Immunizations Name Administration Dates Next Due COVID-19 mRNA, LNP-s, No Pre serve, 2-Dose Series ([employer]) 04/16/2021,07/14/2020,06/09/2020 Covid-19, Mrna, Lnp-s, Pf, B ivalent, 30 Mcg, IM, 12 yrs and above (Pfizer) 02/09/2022 Pneumococcal Conjugate Vacc, 13 Valent (Prevnar) 01/31/2015 Pneumococcal Polysaccharide PPV23 (Pneumovax) 08/18/2007 RSV Vac., Bivalent, Perfusio n F, Pf,0.5 Ml (Abrysvo) 03/05/2024 Season Influenza, Quad, PF, Adjuvanted, 65+ Yrs, IM (FLUAD) 01/10/2020 Seasonal Influenza Vac., MDV , IM, 0.5 mL (Fluzone) 01/31/2014,02/01/2013,01/24/2012,01/01,01/30/2010,01/17/2009,03/05/20 08,02/08/2007,03/16/2006,03/10/2005,1 2002,03/06/2002 01/31/2015 Seasonal Influenza, High Dos e, Trivalent, [...] file Not on file 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 Not on file Not on file documented as of this encounter Miscellaneous Notes * Telephone Encounter - Cornelius Melo DO - 04/23/2024 4:41 PM EST Handled in separate encounter * Telephone Encounter - Jasmin Yuen OSA - 04/10/2024 10:24 AM EST Hello- The radiologist discovered an unexpected or indeterminate finding on Donita Brandon ([id number]) and asks that you review the following [...] you, MCKENZIE Barker Client Service Rep [facility] [place] documented in this encounter Plan of Treatment Upcoming Encounters Date Type Department Care Team (Late st Contact Info) Description 07/23/2024 11:00 AM EDT Office Visit Cardiology, [facility] [address] [place] [address] Arnulfo Arias PA-Hussein [address] [place] [address] 08/06/2024 2:30 PM EDT Imaging Radiology [facility] [address] [place] [id number] 08/29/2024 9:20 AM EDT Office Visit General Internal Medicine [facility] [address] [place] [address] Vesta Reyes MD [address] [facility] [place] [address] 02/11/2025 2:00 PM EDT Office Visit Endocrinology [...] this encounter Medical Devices Implanted Type Area Mathematician Research Device Identifier Shelf Expiration Date Model / Serial / Lot Lens Intraoc 21.5 - [id number] - [id number] Implanted:Qty: 1 on 06/01/2016 by Scott Mckee MD at OR [facility] Right: Eye BAUSCH [employer] LOMB 12/30/2020 [id number] / [id number] / [id number] Lens Intraoc 20.0 - [id number] - [id number] Implanted:Qty: 1 on 06/15/2016 by Scott Mckee MD at OR [facility] Left: Eye BAUSCH & LOMB 01/29/2021 [id number] / [id number] / [id number] 2.0 Cannulated Screw Implanted:Qty: 1 on 07/01/2017 by Renea Landrum DPM at OR [facility] Left: Foot [employer] AR-8720-20P T / / Trim-It Drill Pin, 2 X100 Mm Implanted:Qty: 1 on 07/01/2017 by Renea Landrum DPM at OR [facility] Left: Foot [employer] 12/30/2018 [id number] / / [id number] documented as of this encounter Advance Directives [...] and were consensually agreed upon. Care Teams Photogrammetry Airplane Pilot Relationship Specialty Start Date End Date Vesta Reyes MD [address] [facility] [place] [address] PCP - General 08/16/07 documented as of this encounter
--- OUTSIDE RECORDS SUMMARY | 2024-06-12 07:49 | External Medical Summary | Summary of Care ---
Author Name Unknown Organization [facility] Address [address] [place] [address] Phone [phone] Care Team Providers Care Electrical Appliance Repairer Name Role Phone Vesta Reyes MD Primary Care Provider + Reason for Visit * Reason Onset Date Comments MyCode Nonconsent - Not interested at this time 04/02/2024 Encounter Details Date Type Department Care Team (Late st Contact Info) Description 04/02/2024 Orders Only Outcomes Research Department [address] [place], [place] [id number] Lilly Matamoros CHRA MyCode Nonconsent Documentation Allergies Active Allergy Reactions Criticality Noted Date [...] Oral Tablet (Crestor)Indicat ions:Coronary artery disease involving belkofski coronary artery of belkofski heart without angina pectoris,S/P drug eluting coronary [...] 24 Active Additional Information Patient taking differently:2 [place] NasalDAILY PRN, Reported on 01/13/2024 Losartan Potassium 25 MG Oral Tablet (Cozaar)Indicati ons:HTN, goal below 140/90 TAKE 1 TABLET BY MOUTH IN THE MORNING 90 Tablet 3 12/29/19 24 Active EQ Aspirin Adult Low Dose 81 MG Oral Tablet Delayed Release (aspirin enteric coated)Indicatio ns:Coronary artery disease involving belkofski coronary artery of belkofski heart without angina pectoris Take 1 tablet [...] 1 Each 1 08/25/19 24 2023 Discontinued documented as of this encounter (statuses as of 04/02/2024) Active Problems Problem Noted Date Diagnosed Date Prediabetes 11/10/2020 Overview: Per Prediabetes protocol HTN, goal below 140/90 07/06/2019 Dyslipidemia, goal LDL below 70 07/06/2019 Coronary artery disease invo lving belkofski coronary artery of belkofski heart without angina pectoris 05/29/2017 S/P drug [...] mRNA, LNP-s, No Pre serve, 2-Dose Series ([employer]) 04/16/2021,07/14/2020,06/09/2020 Covid-19, Mrna, Lnp-s, Pf, B ivalent, [...] file 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 documented in this encounter Plan of Treatment Upcoming Encounters Date Type Department Care Team (Late st Contact Info) Description 07/23/2024 11:00 AM EDT Office Visit Cardiology, [facility] [address] [facility] [place] [address] Arnulfo Arias PA-C [address] [facility] [place] [address] 08/06/2024 2:30 PM EDT Imaging Radiology, [facility] [address] [facility] [place] [address] 08/29/2024 9:20 AM EDT Office Visit General Internal Medicine [facility] [address] [place] [address] Vesta Reyes MD [address] [place] [address] 02/11/2025 2:00 PM EDT Office Visit Endocrinology [address] [place] [place] [phone] Jose Mendoza MD [address] [facility] [place] [id number] Health Maintenance Due Date Last Done Comments Zoster Vaccines (2 of 3) 09/16/2011 07/22/2011 Adult Wellness Visit 05/17/2015 05/17/2014 COVID-19 Vaccine ( season) 2024 02/09/2022, 04/16/2021, 07/14/2020, Additional history exists Depression Screening 02/10/2024 02/09/2023 HbA1c 02/10/2024 02/09/2023, 0411/2022, 11/16/2021, Additional history exists Albumin/Creatinine Ratio 11/16/2024 [...] this encounter Medical Devices Implanted Type Area Human Resources Hr Generalist Device Identifier Shelf Expiration Date Model / Serial / Lot Lens Intraoc 21.5 - [id number] - [id number] Implanted:Qty: 1 on 06/01/2016 by Scott Mckee MD at OR [facility] Right: Eye BAUSCH [employer] LOMB 12/30/2020 [id number] / [id number] / [id number] Lens Intraoc 20.0 - [id number] - [id number] Implanted:Qty: 1 on 06/15/2016 by Scott Mckee MD at OR [facility] Left: Eye BAUSCH & LOMB 01/29/2021 [id number] / [id number] / [id number] 2.0 Cannulated Screw Implanted:Qty: 1 on 07/01/2017 by Renea Landrum DPM at OR [facility] Left: Foot [employer] AR-8720-20P T / / Trim-It Drill Pin, 2 X100 Mm Implanted:Qty: 1 on 07/01/2017 by Renea Landrum DPM at OR [facility] Left: Foot [employer] 12/30/2018 AR-[id number] / / [id number] documented as of this encounter Advance Directives [...] and were consensually agreed upon. Care Teams Electrical Appliance Repairer Relationship Specialty Start Date End Date Vesta Reyes MD [address] [place] [address] PCP - General 08/16/07 documented as of this encounter
--- OUTSIDE RECORDS SUMMARY | 2024-06-12 07:49 | External Medical Summary | Summary of Care ---
Author Name Unknown Organization [facility] Address [address] [facility] [place] [address] Phone [phone] Care Team Providers Care Spool Cleaner Hand Name Role Phone Vesta Reyes MD Primary Care Provider + Encounter Details Date Type Department Care Team (Latest Contact Info) Description 04/11/2024 11:00 AM EST Office Visit Audiology [facility] [address] [place] [address] Chioma Oshea Au.D. [address] [place] [address] Sensorineural hearing loss, bilateral* Allergies Active Allergy Reactions Criticality Noted Date Comments Pollen 11/05/2021 Hasn't been properly diagnosed, but has allergy symptoms worse in summer documented as of this encounter (statuses as of 04/11/2024) Medications VITAMIN D 1000 UNIT PO CAPS [...] Oral Tablet (Crestor)Indicat ions:Coronary artery disease involving emmonak coronary artery of emmonak heart without angina pectoris,S/P drug eluting coronary [...] 4 Active Additional Information Patient taking differently:2 [place] NasalDAILY PRN, Reported on 04/02/2024 Losartan Potassium 25 MG Oral Tablet (Cozaar)Indicati ons:HTN, goal below 140/90 TAKE 1 TABLET BY MOUTH IN THE MORNING 90 Tablet 3 4 Active EQ Aspirin Adult Low Dose 81 MG Oral Tablet Delayed Release (aspirin enteric coated)Indicatio ns:Coronary artery disease involving emmonak coronary artery of emmonak heart without angina pectoris Take 1 tablet by mouth once daily 90 Tablet 1 4 Active Famotidine 20 MG Oral Tablet (Pepcid)Indicati ons:Hiatal hernia TAKE 1 TABLET BY MOUTH AT BEDTIME 90 Tablet 1 4 Active documented as of this encounter (statuses as of 04/11/2024) Active Problems Problem Noted Date Diagnosed Date Prediabetes 11/10/2020 Overview: Per Prediabetes protocol HTN, goal below 140/90 07/06/2019 Dyslipidemia, goal LDL below 70 07/06/2019 Coronary artery disease invo lving emmonak coronary artery of emmonak heart without angina pectoris 05/29/2017 S/P drug eluting coronary stent placement 2017 History of non-ST elevation myocardial infarctio n (NSTEMI) 05/29/2017 Senile osteoporosis 03/10/2017 Gastroesophageal reflux disease without esophagi tis 03/10/2017 documented as of this encounter (statuses as of 04/11/2024) Resolved Problems Problem Noted Date Diagnosed Date [...] as of this encounter (statuses as of 04/11/2024) Immunizations Name Administration Dates Next Due COVID-19 mRNA, LNP-s, No Pre serve, 2-Dose Series ([employer]) 04/16/2021,07/14/2020,06/09/2020 Covid-19, Mrna, Lnp-s, Pf, B ivalent, 30 Mcg, IM, 12 yrs and above ([employer]) 02/09/2022 Pneumococcal Conjugate Vacc, 13 Valent (Prevnar) [...] file Not on file Not on file SAMPLE CARD MAKER Not on file Not on file Not on file documented as of this encounter Progress Notes * Chioma Oshea Au.D. - 04/11/2024 11:47 AM EST Hearing Aid Check Reason for Visit Donita came in today for a hearing aid check. She reported that there is no sound output from the left device. 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 Left wax filter totally occluded. Issue resolved. Patient did not wish for devices to be hooked up or to have any program adjustments, felt this restored sound adequately. Plan Donita was advised to call the clinic and schedule an appointment if she has any further difficulty with the aids or would like any adjustments made to the aids. Cody Hanson, CCC-A documented in this encounter Plan of Treatment Upcoming Encounters Date Type Department Care Team (Late st Contact Info) Description 07/23/2024 11:00 AM EDT Office Visit Cardiology, [facility] [address] [facility] [place] [address] Arnulfo Arias PA-C 132 [facility] [place] [address] 08/06/2024 2:30 PM EDT Imaging Radiology, [facility] [address] [facility] [place] [address] 08/29/2024 9:20 AM EDT Office Visit General Internal Medicine [facility] [address] [place] [address] [address] Vesta Reyes MD [address] [place] [address] 02/11/2025 2:00 PM EDT Office Visit Endocrinology [address] [place] [address] Jose Mendoza MD [address] [...] this encounter Medical Devices Implanted Type Area Folding Rules Printing Machine Operator Device Identifier Shelf Expiration Date Model / Serial / Lot Lens Intraoc 21.5 - [id number] - [id number] Implanted:Qty: 1 on 06/01/2016 by Scott Mckee MD at OR [facility] Right: Eye [employer]OM[employer] 12/30/2020 [id number] / [id number] / [id number] Lens Intraoc 20.0 - [id number] - [id number] Implanted:Qty: 1 on 06/15/2016 by Scott Mckee MD at OR [facility] Left: Eye BAUSCH [employer] LOMB 01/29/2021 [id number] / [id number] / [id number] 2.0 Cannulated Screw Implanted:Qty: 1 on 07/01/2017 by Renea Landrum DPM at OR [facility] Left: Foot [employer] AR-8720-20P T / / Trim-It Drill Pin, 2 X100 Mm Implanted:Qty: 1 on 07/01/2017 by Renea Landrum DPM at OR [facility] Left: Foot [employer] 12/30/2018 [id number] / / [id number] documented as of this encounter Visit Diagnoses Diagnosis Sensorineural hearing loss, bilateral- Primary documented in this encounter Advance Directives * [...] and were consensually agreed upon. Care Teams Spool Cleaner Hand Relationship Specialty Start Date End Date Vesta Reyes MD [address] [facility] [place] [address] PCP - General 08/16/07 documented as of this encounter
--- OUTSIDE RECORDS SUMMARY | 2024-06-12 07:50 | External Medical Summary | Summary of Care ---
Author Name Unknown Organization [facility] Address [address] [facility] [address] Phone [phone] Care Team Providers Care Salad Chef Name Role Phone Vesta Reyes MD Primary Care Provider + Encounter Details Date Type Department Care Team (Latest Contact Info) Description 03/05/2024 1:00 PM EST Office Visit Audiology [facility] [address] [place] [address] Chioma Oshea Au.D. [address] [place] [address] Bilateral sensorineural hearing loss* Allergies Active Allergy Reactions Criticality Noted Date Comments Pollen 11/05/2021 Hasn't been properly diagnosed, but has allergy symptoms worse in summer documented as of this encounter (statuses as of 03/05/2024) Medications Medication Sig Dispensed Refills Start Date End Date Status VITAMIN D 1000 UNIT PO CAPS 1 capsule daily 01/25/2011 Active B-12 1000 MCG PO CAPS one daily Active Ascorbic Acid 500 MG CAPS Take 1 Capsule by mouth in the morning. 09/27/2014 Active Nitroglycerin 0.4 MG Sublingual Tablet Sublingual [...] once daily 90 Tablet 3 05/16/2023 Active Zoster Vac Recomb Adjuvanted 50 MCG/0.5ML Intramuscular Suspension Reconstituted (Shingrix)Indication s:Need for shingles vaccine Inject 0.5 mL into a large muscle now and repeat dose in 60 to 180 days 1 Each 1 08/25/2023 Active Additional Information Patient not taking.Reported on 02/29/2024 Rosuvastatin Calcium 40 MG Oral Tablet (Crestor)Indications :Coronary artery disease involving marshall coronary artery of marshall heart without angina pectoris,S/P drug eluting coronary stent placement,History of non-ST elevation myocardial infarction (NSTEMI) Take 1 tablet by mouth once daily 90 Tablet 3 08/29/2023 Active Albuterol Sulfate HFA 108 (90 Base) MCG/ACT Inhalation Aerosol Solution Q6H 08/30/2023 Active Budesonide-Formotero l Fumarate 80-4.5 MCG/ACT Inhalation Aerosol (Symbicort)Indicatio ns:Acute bronchitis, unspecified organism,Hiatal hernia,Wheezing-asso ciated respiratory infection (WARI),Abnormal CXR (chest x-ray) Inhale 2 Puffs by mouth in the morning and 2 Puffs before bedtime. 10.2 g 1 09/05/2023 Active Additional Information Patient not taking.Reported on 11/07/2023 Metoprolol Succinate ER 25 MG Oral Tablet Extended Release 24 Hour (toPROL XL) Take 1 tablet by mouth once daily 90 Tablet 3 09/16/2023 Active Fluticasone Propionate 50 MCG/ACT Nasal Suspension (Flonase)Indications :Seasonal allergic rhinitis due to pollen Administer 2 Sprays into nostril in the morning. 48 g 11/07/2023 Active Additional Information Patient taking differently:2 Fred[place] NasalDAILY PRN, Reported on 01/13/2024 Losartan Potassium 25 MG Oral Tablet (Cozaar)Indications: HTN, goal below 140/90 TAKE 1 TABLET BY MOUTH IN THE MORNING 90 Tablet 3 12/29/2023 Active EQ Aspirin Adult Low Dose 81 MG Oral Tablet Delayed Release (aspirin enteric coated)Indications:C oronary artery disease involving marshall coronary artery of marshall heart without angina pectoris Take 1 tablet by mouth once daily 90 Tablet 1 02/15/2024 Active Famotidine 20 MG Oral Tablet (Pepcid)Indications: Hiatal hernia TAKE 1 TABLET BY MOUTH AT BEDTIME 90 Tablet 1 02/27/2024 Active Arexvy 120 MCG/0.5ML Intramuscular Suspension Reconstituted (RSV PreF3 Vac Recomb Adjuvanted) Inject 0.5 mL into a large muscle once for 1 dose. 1 Each 03/05/2024 03/06/2024 Active documented as of this encounter (statuses as of 03/05/2024) Active Problems Problem Noted Date Diagnosed Date Prediabetes 11/10/2020 Overview: Per Prediabetes protocol HTN, goal below 140/90 07/06/2019 Dyslipidemia, goal LDL below 70 07/06/2019 Coronary artery disease invo lving marshall coronary artery of marshall heart without angina pectoris 05/29/2017 S/P drug eluting coronary stent placement 2017 History of non-ST elevation myocardial infarctio n (NSTEMI) 05/29/2017 Senile osteoporosis 03/10/2017 Gastroesophageal reflux disease without esophagi tis 03/10/2017 documented as of this encounter (statuses as of 03/05/2024) Resolved Problems Problem Noted Date Diagnosed Date [...] as of this encounter (statuses as of 03/05/2024) Immunizations Name Administration Dates Next Due COVID-19 mRNA, LNP-s, No Pre serve, 2-Dose Series (Enervee) 04/16/2021,07/14/2020,06/09/2020 Covid-19, Mrna, Lnp-s, Pf, B ivalent, [...] Progress Notes * Chioma Oshea Au.D. - 03/05/2024 1:11 PM EST Hearing Aid Check - 2 Week Reason for Visit Donita came in today for a 2 week hearing aid check. She was fit with binaural Oticion Intent 2 [employer] hearing aids. She reported that overall, she is happy to be hearing so well again. She had 3 complaints: (1) the car volume has decreased but she still has it at 10, which she feels should be alittle lower (2) she is still struggling to hear the TV clearly despite wearing the hearing aids and using closed captions. She has noticed turning it down more, but her who also wears hearing aids tells her it is too loud (3) still straining to hear people on her cell phone. Hearing aids not paired to phone, patient not interested. Data log shows average of 12 hours 23 minutes of use perday with 0 changes to volume. Hearing Aid Specifications Ground Operations Superintendent: Oticon Model:Intent 2 Serial Number: [id number] (R) [id number] (L) Ear: R/L Speaker: #2 85 dB Dome:8 mm open chawla Battery: rechargeable Warranty Expiration: 03/14/2027 Action The aids were checked and cleaned. Adaption settings increased form 2 to 3. Low frequency gain increased by 2 steps. Oriented patient to VC. She reported adaptation setting 3 was clear and comfortable. She is not having issues with insertion and removal. Plan Donita was schedule to return for a final hearing aid check in approximately 2 weeks. She is aware that she can call the clinic if she needs any hearing aid adjustments before that time. Cody Hanson, CCC-A documented in this encounter Plan of Treatment Upcoming Encounters Date Type Department Care Team (Late st Contact Info) Description 03/19/2024 10:30 AM EST Office Visit Audiology [facility] [address] [place] [address] Chioma Oshea Au.D. [address] [place] [address] 07/23/2024 11:00 AM EDT Office Visit Cardiology, [facility] [address] [place] [address] Arnulfo Arias PA-C [facility] [place] [address] 08/06/2024 2:30 PM EDT Imaging Radiology, [facility] [address] [place] [address] 08/29/2024 9:20 AM EDT Office Visit General Internal Medicine [facility] [address] [facility] [place] [address] Vesta Reyes MD [address] [place] [address] 02/11/2025 2:00 PM EDT Office Visit Endocrinology [address] [place] [phone] Jose Mendoza MD [address] [facility] [place] [id number] Health Maintenance Due Date Last Done Comments [...] this encounter Medical Devices Implanted Type Area Ground Operations Superintendent Device Identifier Shelf Expiration Date Model / Serial / Lot Lens Intraoc 21.5 - [id number] - [id number] Implanted:Qty: 1 on 06/01/2016 by Scott Mckee MD at OR [facility] Right: Eye BAUSCH & LOMB 12/30/2020 [id number] / [id number] / [id number] Lens Intraoc 20.0 - [id number] - [id number] Implanted:Qty: 1 on 06/15/2016 by Scott Mckee MD at OR [facility] Left: Eye BAUSCH & LOMB 01/29/2021 [id number] / [id number] / [id number] 2.0 Cannulated Screw Implanted:Qty: 1 on 07/01/2017 by Renea Landrum DPM at OR [facility] Left: Foot [employer] AR-8720-20P T / / Trim-It Drill Pin, 2 X100 Mm Implanted:Qty: 1 on 07/01/2017 by Renea Landrum DPM at OR [facility] Left: Foot [employer] 12/30/2018 [id number] / / [id number] documented as of this encounter Visit Diagnoses [...] and were consensually agreed upon. Care Teams Salad Chef Relationship Specialty Start Date End Date Vesta Reyes MD [address] [place] [address] PCP - General 08/16/07 documented as of this encounter
--- OUTSIDE RECORDS SUMMARY | 2024-06-12 07:50 | External Medical Summary | Summary of Care ---
Author Name Unknown Organization [facility] Address [address] [place] [address] Phone [phone] Care Team Providers Care Clerk Typist Name Role Phone Vesta Reyes MD Primary Care Provider + Reason for Visit * Reason Onset Date Comments Test Results 02/27/2024 Encounter Details Date Type Department Care Team (Late st Contact Info) Description 02/27/2024 Telephone [facility], [place] [address] [place] [address] Jose Mendoza MD [address] [place] [address] Test Results Allergies Active Allergy Reactions Criticality Noted Date Comments Pollen 11/05/2021 Hasn't been properly diagnosed, but has allergy symptoms worse in summer documented as of this encounter (statuses as of 03/09/2024) Medications VITAMIN D 1000 UNIT PO CAPS [...] Oral Tablet (Crestor)Indicati ons:Coronary artery disease involving alturas coronary artery of alturas heart without angina pectoris,S/P drug eluting coronary [...] 4 Active Additional Information Patient taking differently:2 [place] NasalDAILY PRN, Reported on 01/13/2024 Losartan Potassium 25 MG Oral Tablet (Cozaar)Indicatio ns:HTN, goal below 140/90 TAKE 1 TABLET BY MOUTH IN THE MORNING 90 Tablet 3 4 Active EQ Aspirin Adult Low Dose 81 MG Oral Tablet Delayed Release (aspirin enteric coated)Indication s:Coronary artery disease involving alturas coronary artery of alturas heart without angina pectoris Take 1 tablet by mouth once daily 90 Tablet 1 4 Active Famotidine 20 MG Oral Tablet (Pepcid)Indicatio ns:Hiatal hernia TAKE 1 TABLET BY MOUTH AT BEDTIME 90 Tablet 1 4 Active documented as of this encounter (statuses as of 03/09/2024) Active Problems Problem Noted Date Diagnosed Date Prediabetes 11/10/2020 Overview: Per Prediabetes protocol HTN, goal below 140/90 07/06/2019 Dyslipidemia, goal LDL below 70 07/06/2019 Coronary artery disease invo lving alturas coronary artery of alturas heart without angina pectoris 05/29/2017 S/P drug eluting coronary stent placement 2017 History of non-ST elevation myocardial infarctio n (NSTEMI) 05/29/2017 Senile osteoporosis 03/10/2017 Gastroesophageal reflux disease without esophagi tis 03/10/2017 documented as of this encounter (statuses as of 03/09/2024) Resolved Problems Problem Noted Date Diagnosed Date [...] as of this encounter (statuses as of 03/09/2024) Immunizations Name Administration Dates Next Due COVID-19 mRNA, LNP-s, No Pre serve, 2-Dose Series (Botanica Exotica) 04/16/2021,07/14/2020,06/09/2020 Covid-19, Mrna, Lnp-s, Pf, B ivalent, 30 Mcg, IM, 12 yrs and above (Pfizer) 02/09/2022 Pneumococcal Conjugate Vacc, 13 Valent (Prevnar) 01/31/2015 Pneumococcal Polysaccharide PPV23 (Pneumovax) 08/18/2007 Season Influenza, Quad, PF, Adjuvanted, 65+ Yrs, IM (FLUAD) 01/10/2020 Seasonal Influenza Vac., MDV , IM, 0.5 mL (Fluzone) 01/31/2014,02/01/2013,01/24/2012,01/01,01/30/2010,01/17/2009,03/05/20 08,02/08/2007,03/16/2006 01/31/2015 Seasonal Influenza, PF, 6 M & above, [...] file Not on file Not on file 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 She states understanding. * Telephone Encounter - Hope Mueller LPN - 02/27/2024 4:08 PM EDT Left message for patient to return call. * Telephone Encounter - Hope Mueller LPN - 02/27/2024 7:00 AM EDT ----- Message from Jose Mendoza MD sent at 02/24/2024 2:09 PM EDT ----- Please update pt with following Labs reviewed Vit D and kidney function are normal Parathyroid hormone has stayed slightly high with low normal calcium. I will advise to take over the counter calcium 1200 mg daily. I will recheck calcium and PTH in 3 months. Order placed Thanks documented in this encounter Plan of Treatment Upcoming Encounters Date Type Department Care Team (Late st Contact Info) Description 03/19/2024 10:30 AM EST Office Visit Audiology [facility] [address] [place] [address] Chioma Oshea Au.D. [address] [place] [address] 07/23/2024 11:00 AM EDT Office Visit Cardiology, [facility] [address] [place] [address] Arnulfo Arias PA-C [address] [place] [address] 08/06/2024 2:30 PM EDT Imaging Radiology, [facility] [address] [facility] [place] [address] 08/29/2024 9:20 AM EDT Office Visit General Internal Medicine [facility] [address] [facility] [place] [address] Vesta Reyes MD [address] [facility] [place] [address] 02/11/2025 2:00 PM EDT Office Visit Endocrinology [facility] [place] [address] [place] [address] [place] [phone] [facility] M[facility] [address] [facility] [address] Health Maintenance Due Date Last Done [...] this encounter Medical Devices Implanted Type Area Pharmaceutical Botanist Device Identifier Shelf Expiration Date Model / Serial / Lot Lens Intraoc 21.5 - [id number] - [id number] Implanted:Qty: 1 on 06/01/2016 by Scott Mckee MD at OR [facility] Right: Eye BAUSCH & LOMB 12/30/2020 [id number] / [id number] / [id number] Lens Intraoc 20.0 - [id number] - [id number] Implanted:Qty: 1 on 06/15/2016 by Scott Mckee MD at OR [facility] Left: Eye BAUSCH & LOMB 01/29/2021 [id number] / [id number] / [id number] 2.0 Cannulated Screw Implanted:Qty: 1 on 07/01/2017 by Renea Landrum DPM at OR [facility] Left: Foot [employer] AR-8720-20P T / / Trim-It Drill Pin, 2 X100 Mm Implanted:Qty: 1 on 07/01/2017 by Renea Landrum DPM at OR [facility] Left: Foot [employer] 12/30/2018 [id number] / / [id number] documented as of this encounter Advance Directives [...] and were consensually agreed upon. Care Teams Clerk Typist Relationship Specialty Start Date End Date Vesta Reyes MD [address] [place] [address], [place] [address] PCP - General 08/16/07 documented as of this encounter
--- OUTSIDE RECORDS SUMMARY | 2024-06-12 07:50 | External Medical Summary | Summary of Care ---
Author Name Unknown Organization [facility] Address [address] [place] [facility] [place] [address] Phone [phone] Care Team Providers Care Back Tender Cylinder Name Role Phone Vesta Reyes MD Primary Care Provider + Reason for Visit * Reason Comments Outpatient Testing Encounter Details Date Type Department Care Team (Late st Contact Info) Description 03/05/2024 1:30 PM EST Laboratory Laboratory, [facility] [address] [place] [id number] [facility] [address] [place] [address] Urgency of urination Allergies Active Allergy Reactions Criticality Noted Date [...] Oral Tablet (Crestor)Indications :Coronary artery disease involving [place] coronary artery of [place] heart without angina pectoris,S/P drug eluting coronary [...] 11/07/2023 Active Additional Information Patient taking differently:2 [place] NasalDAILY PRN, Reported on 01/13/2024 Losartan Potassium 25 MG Oral Tablet (Cozaar)Indications: HTN, goal below 140/90 TAKE 1 TABLET BY MOUTH IN THE MORNING 90 Tablet 3 12/29/2023 Active EQ Aspirin Adult Low Dose 81 MG Oral Tablet Delayed Release (aspirin enteric coated)Indications:C oronary artery disease involving [place] coronary artery of [place] heart without angina pectoris Take 1 tablet [...] 70 07/06/2019 Coronary artery disease invo lving [place] coronary artery of [place] heart without angina pectoris 05/29/2017 S/P drug [...] mRNA, LNP-s, No Pre serve, 2-Dose Series (PhoneGuard) 04/16/2021,07/14/2020,06/09/2020 Covid-19, Mrna, Lnp-s, Pf, B ivalent, [...] 03/19/2024 10:30 AM EST Office Visit Audiology [facility] [address] [place] [address] Chioma Oshea Au.D. [address] [place] [address] 07/23/2024 11:00 AM EDT Office Visit Cardiology, [facility] [place] [address] Arnulfo Arias PA-C [address] [place] [address] 08/06/2024 2:30 PM EDT Imaging Radiology, [facility] [address] [facility] [place] [address] 08/29/2024 9:20 AM EDT Office Visit General Internal Medicine [facility] [address] [facility] [place] [address] Vesta Reyes MD [address] [facility] [place] [address] 02/11/2025 2:00 PM EDT Office Visit Endocrinology [address] [place] [address] [place] [phone] Jose Mendoza MD [address] [facility] [place] [address] Pending Results Name Type Priority Associated Diagnoses Date /Time CULTURE, URINE, QUANTITATIVE Lab Routine Urgency of urination 03/05/2024 1:19 PM EST URINALYSIS WITH MICROSCOPIC EXAM Lab Routine Urgency of urination 03/05/2024 1:19 PM EST Health Maintenance Due Date Last [...] this encounter Medical Devices Implanted Type Area Lead Technician Device Identifier Shelf Expiration Date Model / Serial / Lot Lens Intraoc 21.5 - [id number] - [id number] Implanted:Qty: 1 on 06/01/2016 by Scott Mckee MD at OR [facility] Right: Eye BAUSCH & LOMB 12/30/2020 [id number] / [id number] / [id number] Lens Intraoc 20.0 - [id number] - [id number] Implanted:Qty: 1 on 06/15/2016 by Scott Mckee MD at OR [facility] Left: Eye BAUSCH & LOMB 01/29/2021 [id number] / [id number] / [id number] 2.0 Cannulated Screw Implanted:Qty: 1 on 07/01/2017 by Renea Landrum DPM at OR [facility] Left: Foot [employer] AR-8720-20P T / / Trim-It Drill Pin, 2 X100 Mm Implanted:Qty: 1 on 07/01/2017 by Renea Landrum DPM at OR [facility] Left: Foot [employer] 12/30/2018 AR-[id number] / / [id number] documented as of this encounter Visit Diagnoses Diagnosis Urgency of urination documented in this encounter Advance Directives * [...] and were consensually agreed upon. Care Teams Back Tender Cylinder Relationship Specialty Start Date End Date Vesta Reyes MD [address] [place] [address] PCP - General 08/16/07 documented as of this encounter
--- OUTSIDE RECORDS SUMMARY | 2024-06-12 07:50 | External Medical Summary | Summary of Care ---
Author Name Unknown Organization [facility] Address [address] [place] [address] Phone [phone] Care Team Providers Care Dobby Loom Chain Pegger Name Role Phone Vesta Reyes MD Primary Care Provider + Reason for Visit * Reason Onset Date Comments Order Request 03/05/2024 Encounter Details Date Type Department Care Team (Late st Contact Info) Description 03/05/2024 Telephone General Internal Medicine [facility] [address] [place] [address] Vesta Reyes MD [address] [place] [address] Order Request Allergies Active Allergy Reactions Criticality Noted Date Comments Pollen 11/05/2021 Hasn't been properly diagnosed, but has allergy symptoms worse in summer documented as of this encounter (statuses as of 03/08/2024) Medications Medication Sig Dispensed Refills Start Date [...] Recomb Adjuvanted 50 MCG/0.5ML Intramuscular Suspension Reconstituted (Shingrix)Indicatio ns:Need for shingles vaccine Inject 0.5 mL into a large muscle now and repeat dose in 60 to 180 days 1 Each 1 08/25/2023 Active Additional Information Patient not taking.Reported on 02/29/2024 Rosuvastatin Calcium 40 MG Oral Tablet (Crestor)Indication s:Coronary artery disease involving [place] coronary artery of [place] heart without angina pectoris,S/P drug eluting coronary stent placement,History of non-ST elevation myocardial infarction (NSTEMI) Take 1 tablet by mouth once daily 90 Tablet 3 08/29/2023 Active Albuterol Sulfate HFA 108 (90 Base) MCG/ACT Inhalation Aerosol Solution Q6H 08/30/2023 Active Budesonide-Formoter ol Fumarate 80-4.5 MCG/ACT Inhalation Aerosol (Symbicort)Indicati ons:Acute bronchitis, unspecified organism,Hiatal hernia,Wheezing-ass ociated respiratory infection (WARI),Abnormal CXR (chest x-ray) Inhale 2 Puffs by mouth in the morning and 2 Puffs before bedtime. 10.2 g 1 09/05/2023 Active Additional Information Patient not taking.Reported on 11/07/2023 Metoprolol Succinate ER 25 MG Oral Tablet Extended Release 24 Hour (toPROL XL) Take 1 tablet by mouth once daily 90 Tablet 3 09/16/2023 Active Fluticasone Propionate 50 MCG/ACT Nasal Suspension (Flonase)Indication s:Seasonal allergic rhinitis due to pollen Administer 2 Sprays into nostril in the morning. 48 g 11/07/2023 Active Additional Information Patient taking differently:2 [place] NasalDAILY PRN, Reported on 01/13/2024 Losartan Potassium 25 MG Oral Tablet (Cozaar)Indications :HTN, goal below 140/90 TAKE 1 TABLET BY MOUTH IN THE MORNING 90 Tablet 3 12/29/2023 Active EQ Aspirin Adult Low Dose 81 MG Oral Tablet Delayed Release (aspirin enteric coated)Indications: Coronary artery disease involving [place] coronary artery of [place] heart without angina pectoris Take 1 tablet by mouth once daily 90 Tablet 1 02/15/2024 Active Famotidine 20 MG Oral Tablet (Pepcid)Indications :Hiatal hernia TAKE 1 TABLET BY MOUTH AT BEDTIME 90 Tablet 1 02/27/2024 Active Arexvy 120 MCG/0.5ML Intramuscular Suspension Reconstituted (RSV PreF3 Vac Recomb Adjuvanted) Inject 0.5 mL into a large muscle once for 1 dose. 1 Each 03/05/2024 03/06/2024 documented as of this encounter (statuses as of 03/08/2024) Active Problems Problem Noted Date Diagnosed Date [...] as of this encounter (statuses as of 03/08/2024) Resolved Problems Problem Noted Date Diagnosed Date [...] as of this encounter (statuses as of 03/08/2024) Immunizations Name Administration Dates Next Due COVID-19 mRNA, LNP-s, No Pre serve, 2-Dose Series (Machinima) 04/16/2021,07/14/2020,06/09/2020 Covid-19, Mrna, Lnp-s, Pf, B ivalent, [...] encounter Miscellaneous Notes * Telephone Encounter - Vesta Reyes MD - 03/08/2024 10:11 AM EST Noted. * Telephone Encounter - Linn Muñiz LPN - 03/07/2024 1:56 PM EST patient aware She has some frequency and urgency but this has improved since the original UA on 02/22. No burningor pain. * Telephone Encounter - Kimberly Cano OSA - 03/07/2024 1:53 PM EST Reason for patient's call: pt received call. Caller was transferred to [place] at the nurse line. * Telephone Encounter - Ivonne Patton MED ASSIST - 03/07/2024 1:46 PM EST Left message for the patient to call the office. Upon return call please transfer to a dedicated triage telephone nurse to provide information below. * Telephone Encounter - Ivonne Patton MED ASSIST - 03/07/2024 1:45 PM EST ----- Message from Vesta Reyes MD sent at 03/07/2024 12:39 PM EST ----- Recent urine analysis is positive for bacteria but urine culture is negative. Continue hydration. Ideally there is no need for any antibiotic as culture is negative. Please find out how she is doing clinically. * Telephone Encounter - Marj Moore MD - 03/05/2024 8:49 AM EST Done * Telephone Encounter - Semaj Keys RN - 03/05/2024 8:42 AM EST Patient is scheduled for RSV vaccine on nurse clinic today. Immunization order pended for review and signature if agree. documented in this encounter Plan of Treatment Upcoming Encounters Date Type Department Care Team (Late st Contact Info) Description 03/19/2024 10:30 AM EST Office Visit Audiology [facility] [address] [address] Chioma Oshea Au.D. [address] [address] 07/23/2024 11:00 AM EDT Office Visit Cardiology, [facility] [address] [address] Arnulfo Arias PA-C [address] [address] 08/06/2024 2:30 PM EDT Imaging Radiology, [facility] [address] [facility] [place] [address] 08/29/2024 9:20 AM EDT Office Visit General Internal Medicine [facility] [address] [place] [address] Vesta Reyes MD [address] [place] [address] 02/11/2025 2:00 PM EDT Office Visit Endocrinology [address] [place] [address] Jose Mendoza MD [address] [facility] [place] [address] Health Maintenance Due Date Last Done Comments Zoster Vaccines (2 of 3) 09/16/2011 07/22/2011 Adult Wellness Visit 05/17/2015 05/17/2014 COVID-19 Vaccine ( season) 2024 02/09/2022, 04/16/2021, 07/14/2020, Additional history exists Depression Screening 02/10/2024 02/09/2023 HbA1c 02/10/2024 02/09/2023, 07/31, 11/16/2021, Additional history exists Albumin/Creatinine Ratio 11/16/2024 11/16/2021, 09/30 GFR 02/22/2025 02/23/2024, 030 10/2023, 02/09/2023, Additional history exists DTap/Tdap Vaccines [...] this encounter Medical Devices Implanted Type Area Conveyor Tender Device Identifier Shelf Expiration Date Model / Serial / Lot Lens Intraoc 21.5 - [id number] - [id number] Implanted:Qty: 1 on 06/01/2016 by Scott Mckee MD at OR [facility] Right: Eye [employer]OM[employer] 12/30/2020 [id number] / [id number] / [id number] Lens Intraoc 20.0 - [id number] - [id number] Implanted:Qty: 1 on 06/15/2016 by Scott Mckee MD at OR [facility] [facility] Left: Eye BAUSCH & LOMB 01/29/2021 [id number] / [id number] / [id number] 2.0 Cannulated Screw Implanted:Qty: 1 on 07/01/2017 by Renea Landrum DPM at OR [facility] Left: Foot [employer] AR-8720-20P T / / Trim-It Drill Pin, 2 X100 Mm Implanted:Qty: 1 on 07/01/2017 by Renea Landrum DPM at OR [facility] Left: Foot [employer] 12/30/2018 [id number] / / [id number] documented as of this encounter Visit Diagnoses Diagnosis Need for RSV vaccination- Primary Need for prophylactic vaccination and inoculation against respiratory syncytial virus documented in this encounter Advance Directives * [...] and were consensually agreed upon. Care Teams Dobby Loom Chain Pegger Relationship Specialty Start Date End Date Vesta Reyes MD [address] [place] [address], [place] [address] PCP - General 08/16/07 documented as of this encounter
--- OUTSIDE RECORDS SUMMARY | 2024-06-12 07:51 | External Medical Summary | Summary of Care ---
Author Name Unknown Organization [facility] Address [address] [place] [address] Phone [phone] Care Team Providers Care Baseball Sewer Hand Name Role Phone Vesta Reyes MD Primary Care Provider + Reason for Visit * Reason Onset Date Comments Appointment 02/28/2024 Encounter Details Date Type Department Care Team (Late st Contact Info) Description 02/28/2024 Telephone [facility] [place] [address] [place] [address] Jose Mendoza MD [address] [place] [address] Appointment Allergies Active Allergy Reactions Criticality Noted Date Comments Pollen 11/05/2021 Hasn't been properly diagnosed, but has allergy symptoms worse in summer documented as of this encounter (statuses as of 02/28/2024) Medications Medication Sig Dispensed Refills Start Date [...] Pain, Chest. 25 Tablet 5 04/22/2022 Active Loratadine 10 MG Oral Capsule Take [...] Oral Tablet (Crestor)Indications :Coronary artery disease involving [place] coronary artery of [place] heart without angina pectoris,S/P drug eluting coronary [...] 11/07/2023 Active Additional Information Patient taking differently:2 [place] NasalDAILY PRN, Reported on 01/13/2024 Losartan Potassium 25 MG Oral Tablet (Cozaar)Indications: HTN, goal below 140/90 TAKE 1 TABLET BY MOUTH IN THE MORNING 90 Tablet 3 12/29/2023 Active EQ Aspirin Adult Low Dose 81 MG Oral Tablet Delayed Release (aspirin enteric coated)Indications:C oronary artery disease involving the [place] coronary artery of [place] heart without angina pectoris Take 1 tablet by mouth once daily 90 Tablet 1 02/15/2024 Active Famotidine 20 MG Oral Tablet (Pepcid)Indications: Hiatal hernia TAKE 1 TABLET BY MOUTH AT BEDTIME 90 Tablet 1 02/27/2024 Active documented as of this encounter (statuses as of 02/28/2024) Active Problems Problem Noted Date Diagnosed Date Prediabetes 11/10/2020 Overview: Per Prediabetes protocol HTN, goal below 140/90 07/06/2019 Dyslipidemia, goal LDL below 70 07/06/2019 Coronary artery disease invo lving the [place] coronary artery of [place] heart without angina pectoris 05/29/2017 S/P drug eluting coronary stent placement 2017 History of non-ST elevation myocardial infarctio n (NSTEMI) 05/29/2017 Senile osteoporosis 03/10/2017 Gastroesophageal reflux disease without esophagi tis 03/10/2017 documented as of this encounter (statuses as of 02/28/2024) Resolved Problems Problem Noted Date Diagnosed Date [...] as of this encounter (statuses as of 02/28/2024) Immunizations Name Administration Dates Next Due COVID-19 mRNA, LNP-s, No Pre serve, 2-Dose Series (FlexEl) 04/16/2021,07/14/2020,06/09/2020 Covid-19, Mrna, Lnp-s, Pf, B ivalent, 30 Mcg, IM, 12 yrs and above (FlexEl) 02/09/2022 Pneumococcal Conjugate Vacc, 13 Valent (Prevnar) [...] encounter Miscellaneous Notes * Telephone Encounter - Jesusita Benites OSA - 02/28/2024 1:37 PM EDT Called pt and scheduled 1 year f/u for 02/11/25 documented in this encounter Plan of Treatment Upcoming Encounters Date Type Department Care Team (Late st Contact Info) Description 02/29/2024 9:40 AM EDT Office Visit General Internal Medicine [facility] [address] [place] [address] Vesta Reyes MD [address] [place] [address] 03/05/2024 10:30 AM EST Office Visit Audiology [facility] [address] [place] [address] Chioma Oshea Au.D. [address] [place] [address] 03/19/2024 10:30 AM EST Office Visit Audiology [facility] [address] [place] [address] Chioma Oshea Au.D. [address] [place] [address] 05/14/2024 3:00 PM EST Imaging Radiology, [facility] [address] [place] [address] 07/23/2024 11:00 AM EDT Office Visit Cardiology, [facility] [address] [facility] [place] [place] [address] Arnulfo Arias PA-C [address] [place] [address] 02/11/2025 2:00 PM EDT Office Visit Endocrinology [address] [place] [place] [address] Jose Mendoza MD [address] [facility] [place] [id number] Health Maintenance Due Date Last Done Comments Zoster Vaccines (2 of 3) 09/16/2011 07/22/2011 Adult Wellness Visit 05/17/2015 05/17/2014 COVID-19 Vaccine ( season) 2024 02/09/2022, 04/16/2021, 07/14/2020, Additional history exists Influenza Vaccine (FLU shot) (#1) 2024 02/09/2023, 02/02/2022, 02/11/2021, Additional history exists Depression Screening 02/10/2024 02/09/2023 HbA1c 02/10/2024 02/09/2023, 07/31, 11/16/2021, Additional history exists Albumin/Creatinine Ratio 11/16/2024 11/16/2021, 09/30 GFR 02/22/2025 02/23/2024, 03/0 10/2023, 02/09/2023, Additional history exists DTap/Tdap Vaccines (3 - Td or Tdap) 03/10/2027 03/10/2017, 11/10/2005 Pneumococcal Vaccine: 65+ Years Completed 01/31/2015, 08/18/2007 HPV (Gardasil) Vaccine Aged Out No lo nger eligible based on patient's age to complete this topic Hepatitis B Vaccine Aged Out No longe r eligible based on patient's age to complete this topic MENINGOCOCCAL (MENACTRA/MENVEO) Aged Out No longer eligible based on patient's age to complete this topic documented as of this encounter Medical Devices Implanted Type Area Social Media Director Device Identifier Shelf Expiration Date Model / Serial / Lot Lens Intraoc 21.5 - [id number] - [id number] Implanted:Qty: 1 on 06/01/2016 by Scott Mckee MD at OR [facility] Right: Eye [employer]USCH [employer] LOMB 12/30/2020 [id number] / [id number] / [id number] Lens Intraoc 20.0 - [id number] - [id number] Implanted:Qty: 1 on 06/15/2016 by Scott Mckee MD at OR [facility] Left: Eye BAUSCH & LOMB 01/29/2021 [id number] / [id number] / [id number] 2.0 Cannulated Screw Implanted:Qty: 1 on 07/01/2017 by Renea Landrum DPM at OR [facility] Left: Foot [employer] AR-8720-20P T / / Trim-It Drill Pin, 2 X100 Mm Implanted:Qty: 1 on 07/01/2017 by Renea Landrum DPM at OR [facility] Left: Foot [employer] 12/30/2018 [id number] / / [id number] documented as of this encounter Advance Directives [...] and were consensually agreed upon. Care Teams Baseball Sewer Hand Relationship Specialty Start Date End Date Vesta Reyes MD [address] [facility] [place] [address] PCP - General 08/16/07 documented as of this encounter
--- OUTSIDE RECORDS SUMMARY | 2024-06-12 07:51 | External Medical Summary | Summary of Care ---
Author Name Unknown Organization [facility] Address [address] [place] [address] Phone [phone] Care Team Providers Care Digital Advisor Name Role Phone Vesta Reyes MD Primary Care Provider + Reason for Visit * Reason Onset Date Comments Health Maintenance 02/29/2024 Encounter Details Date Type Department Care Team (Late st Contact Info) Description 02/29/2024 Telephone General Internal Medicine [facility] [place] [address] [place] [address] Vesta Reyes MD [address] [facility] [address] Health Maintenance Allergies Active Allergy Reactions Criticality Noted Date Comments Pollen 11/05/2021 Hasn't been properly diagnosed, but has allergy symptoms worse in summer documented as of this encounter (statuses as of 02/29/2024) Medications Medication Sig Dispensed Refills Start Date [...] Oral Tablet (Crestor)Indications :Coronary artery disease involving [place] coronary artery of [place] heart without angina pectoris,S/P drug eluting coronary [...] 11/07/2023 Active Additional Information Patient taking differently:2 [place] NasalDAILY PRN, Reported on 01/13/2024 Losartan Potassium 25 MG Oral Tablet (Cozaar)Indications: HTN, goal below 140/90 TAKE 1 TABLET BY MOUTH IN THE MORNING 90 Tablet 3 12/29/2023 Active EQ Aspirin Adult Low Dose 81 MG Oral Tablet Delayed Release (aspirin enteric coated)Indications:C oronary artery disease involving [place] coronary artery of [place] heart without angina pectoris Take 1 tablet by mouth once daily 90 Tablet 1 02/15/2024 Active Famotidine 20 MG Oral Tablet (Pepcid)Indications: Hiatal hernia TAKE 1 TABLET BY MOUTH AT BEDTIME 90 Tablet 1 02/27/2024 Active documented as of this encounter (statuses as of 02/29/2024) Active Problems Problem Noted Date Diagnosed Date Prediabetes 11/10/2020 Overview: Per Prediabetes protocol HTN, goal below 140/90 07/06/2019 Dyslipidemia, goal LDL below 70 07/06/2019 Coronary artery disease invo lving [place] coronary artery of [place] heart without angina pectoris 05/29/2017 S/P drug eluting coronary stent placement 2017 History of non-ST elevation myocardial infarctio n (NSTEMI) 05/29/2017 Senile osteoporosis 03/10/2017 Gastroesophageal reflux disease without esophagi tis 03/10/2017 documented as of this encounter (statuses as of 02/29/2024) Resolved Problems Problem Noted Date Diagnosed Date [...] as of this encounter (statuses as of 02/29/2024) Immunizations Name Administration Dates Next Due COVID-19 mRNA, LNP-s, No Pre serve, 2-Dose Series (MunchAway) 04/16/2021,07/14/2020,06/09/2020 Covid-19, Mrna, Lnp-s, Pf, B ivalent, 30 Mcg, IM, 12 yrs and above (MunchAway) 02/09/2022 Pneumococcal Conjugate Vacc, 13 Valent (Prevnar) [...] encounter Miscellaneous Notes * Telephone Encounter - Abdoulaye GomezINO culver - 02/29/2024 8:40 AM EDT Care Gaps Comprehensive Care Outreach Last Office/Telemedicine Visit: 11/07/2023 (in office), Visit date not found (telemedicine) Next Office Visit: 02/29/2024 Hemoglobin AIC Results: Lab Results Component Value Date/Time HEMOGLOBIN A1C - [facility] 6.1 (H) 02/09/2023 11:05 AM HEMOGLOBIN A1C - [facility] 6.0 (H) 08/17/2022 12:28 PM HEMOGLOBIN A1C - [facility] 6.2 (H) 11/16/2021 10:35 AM HEMOGLOBIN A1C - [facility] 6.1 (H) 04/17/2020 02:46 PM HEMOGLOBIN A1C - [facility] 5.6 01/04/2019 09:42 AM HEMOGLOBIN A1C - [facility] 6.0 (H) 10/04/2018 10:52 AM BP Readings from Last 1 Encounters: 02/06/24 138/72 Reviewed Health Maintenance below: Health Maintenance Topic Date Due Zoster Vaccines (2 of 3) 09/16/2011 Adult Wellness Visit 05/17/2015 Influenza Vaccine (FLU shot) (1) 01/01/2024 COVID-19 Vaccine ( season) 2024 HbA1c 02/10/2024 Depression Screening 02/10/2024 Albumin/Creatinine Ratio 11/16/2024 GFR 02/22/2025 DTap/Tdap Vaccines (3 - Td or Tdap) 03/10/2027 Pneumococcal Vaccine: 65+ Years Completed Hepatitis B Vaccine Aged Out MENINGOCOCCAL (MENACTRA/MENVEO) Aged Out HPV (Gardasil) Vaccine Aged Out Pcp today Care Gap Outreach Action Taken: Outreach not indicated documented in this encounter Plan of Treatment Upcoming Encounters Date Type Department Care Team (Late st Contact Info) Description 02/29/2024 9:40 AM EDT Office Visit General Internal Medicine [facility] [address] [place] [address] [place] [address] Vesta Reyes MD [address] [facility] [place] [address] 03/05/2024 10:30 AM EST Office Visit Audiology [facility] [address] [address] Chioma Oshea Au.D. [address] [place] [address] 03/19/2024 10:30 AM EST Office Visit Audiology [facility] [address] [place] [address] Chioma Oshea Au.D. [address] [place] [address] 05/14/2024 3:00 PM EST Imaging Radiology, [facility] [address] [facility] [place] [address] 07/23/2024 11:00 AM EDT Office Visit Cardiology, [facility] [address] [facility] [place] [address] Arnulfo Arias PA-C [address] [facility] [place] [address] 02/11/2025 2:00 PM EDT Office Visit Endocrinology [address] [place] [address] [place] [address] Jose Mendoza MD [address] [facility] [place] [address] Health Maintenance Due Date Last Done Comments Zoster Vaccines (2 of 3) 09/16/2011 07/22/2011 Adult Wellness Visit 05/17/2015 05/17/2014 COVID-19 Vaccine ( season) 2024 02/09/2022, 04/16/2021, 07/14/2020, Additional history exists Influenza Vaccine (FLU shot) (#1) 2024 02/09/2023, 02/02/2022, 02/11/2021, Additional history exists Depression Screening 02/10/2024 02/09/2023 HbA1c 02/10/2024 02/09/2023, 07/31, 11/16/2021, Additional history exists Albumin/Creatinine Ratio 11/16/2024 11/16/2021, 09/30 GFR 02/22/2025 02/23/2024, 03/10/2023, 02/09/2023, Additional history exists DTap/Tdap Vaccines (3 [...] this encounter Medical Devices Implanted Type Area Link Machine Operator Device Identifier Shelf Expiration Date Model / Serial / Lot Lens Intraoc 21.5 - [id number] - [id number] Implanted:Qty: 1 on 06/01/2016 by Scott Mckee MD at OR [facility] Right: Eye [employer]CH [employer]OMB 12/30/2020 [id number] / [id number] / [id number] Lens Intraoc 20.0 - [id number] - [id number] Implanted:Qty: 1 on 06/15/2016 by Scott Mckee MD at OR [facility] Left: Eye BAUSCH [employer] LOMB 01/29/2021 [id number] / [id number] / [id number] 2.0 Cannulated Screw Implanted:Qty: 1 on 07/01/2017 by Renea Landrum DPM at OR [facility] Left: Foot [employer] AR-8720-20P T / / Trim-It Drill Pin, 2 X100 Mm Implanted:Qty: 1 on 07/01/2017 by Renea Landrum DPM at OR [facility] Left: Foot [employer] 12/30/2018 [id number] / / [id number] documented as of this encounter Advance Directives [...] and were consensually agreed upon. Care Teams Digital Advisor Relationship Specialty Start Date End Date Vesta Reyes MD [address] [place] [address], [place] [address] PCP - General 08/16/07 documented as of this encounter
--- OUTSIDE RECORDS SUMMARY | 2024-06-12 07:51 | External Medical Summary | Summary of Care ---
Author Name Unknown Organization [facility] Address [address] [place] [address] Phone [phone] Care Team Providers Care Aviation Maintenance Technician Name Role Phone Vesta Reyes MD Primary Care Provider + Reason for Referral * Evaluate & Treat - Unlimited Visits (Within 30 days (routine)) - Authorized Specialty Diagnoses / Procedures Referred By Contact Referred To Contact GI NUTRITION/IM / Gastroenterology Diagnoses Overweight (BMI 25.0-29.9) Vesta Reyes MD [address] [place] [address] Referral ID Status Reason Start Date Expiration Date Visits Requested Visits Authorized [id number] Authorized Specialty Services Required 4 [phone] Question Answer Referral Priority Within 30 days (routine) Where should this appointment be scheduled? [facility] For what condition is the patient being seen? Weight Loss Medication Is this referral for a GLP1 medication? No Comments Please eval for difficulty losing weight. Wants to discuss diet, oral or injectable options. Have cardiac history and would benefit with weight loss. Thanks. Reason for Visit * Reason Onset Date Comments Follow Up Para thyroid meek anny about a year ago and has questions about medicine prescribed. Also has questions concerning her upcoming dexascan.Wants the Flu shot but has concerns of a cold and possible side effect of taking the flu shot currently. Medication Administration 02/29/2024 Flu an d/or Pneumo Inj Encounter Details Date Type Department Care Team (Late st Contact Info) Description 02/29/2024 9:40 AM EDT Office Visit General Internal Medicine [place] Joana Ricci [address] [facility] [place] [address] Vesta Reyes MD [address] [facility] [place] [address] HTN, goal below 140/90*; Coronary artery disease involving anvik coronary artery of anvik heart without angina pectoris; S/P drug eluting coronary stent placement; Senile osteoporosis; Prediabetes; Dyslipidemia, goal LDL below 70; Overweight (BMI 25.0-29.9); Urgency of urination; Need for prophylactic vaccination and inoculation against influenza Allergies Active Allergy Reactions Criticality Noted Date [...] Oral Tablet (Crestor)Indications :Coronary artery disease involving anvik coronary artery of anvik heart without angina pectoris,S/P drug eluting coronary [...] 11/07/2023 Active Additional Information Patient taking differently:2 [place] NasalDAILY PRN, Reported on 01/13/2024 Losartan Potassium 25 MG Oral Tablet (Cozaar)Indications: HTN, goal below 140/90 TAKE 1 TABLET BY MOUTH IN THE MORNING 90 Tablet 3 12/29/2023 Active Loteprednol Etabonate 0.5 % Ophthalmic Suspension (Lotemax) Instill 1 Drop into both eyes in the morning and 1 Drop at noon and 1 Drop in the evening and 1 Drop before bedtime. 01/10/2024 02/29/2024 Active EQ Aspirin Adult Low Dose 81 MG Oral Tablet Delayed Release (aspirin enteric coated)Indications:C oronary artery disease involving anvik coronary artery of anvik heart without angina pectoris Take 1 tablet [...] 70 07/06/2019 Coronary artery disease invo lving anvik coronary artery of anvik heart without angina pectoris 05/29/2017 S/P drug [...] mRNA, LNP-s, No Pre serve, 2-Dose Series (iSSimple) 04/16/2021,07/14/2020,06/09/2020 Covid-19, Mrna, Lnp-s, Pf, B ivalent, 30 Mcg, IM, 12 yrs and above (iSSimple) 02/09/2022 Pneumococcal Conjugate Vacc, 13 Valent (Prevnar) [...] Sign Reading Time Taken Comments Blood Pressure 138/68 02/29/2024 9:37 AM EDT Pulse 74 02/29/2024 9:37 AM EDT Temperature 37 C (98.6 F) 02/29/2024 9:37 AM EDT Respiratory Rate 16 02/29/2024 9:37 AM EDT Oxygen Saturation - - Inhaled Oxygen Concentration - - Weight 72 kg (158 lb 12.8 oz) 02/29/2024 9:37 AM EDT Height - - Body Mass Index 29.52 11/07/2023 12:53 PM EDT documented in this encounter Patient Instructions * Patient Instructions* Christine Villalobos MED ASSIST - 02/29/2024 10:13 AM EDT ~~PATIENT INSTRUCTIONS FOR FLU SHOT~~ Possible side effects of influenza vaccine, (flu shot), are usually mild and include: 1. Soreness or redness at injection site 2. Low grade fever 3. Body aches You may use Tylenol/Acetaminophen as needed for these symptoms. LET YOUR DOCTOR KNOW IMMEDIATELY IF YOU HAVE DIFFICULTY BREATHING OR SWALLOWING, EXPERIENCE ITCHINGOF FEET OR HANDS, HAVE SWELLING OF EYES, FACE OR INSIDE OF NOSE. documented in this encounter Progress Notes * Christine Villalobos MED ASSIST - 02/29/2024 10:13 AM EDT PRE - ADMINISTRATION DOCUMENTATION Are you experiencing any cold symptoms or fever? Yes,mild - OK with provider. Have you had Guillain-[place] Syndrome (an illness that causes paralysis) within the last 6 weeks? No Have you had the flu shot in the past? YES Have you ever had a reaction to the flu shot? No DONAVAN Nichols, 02/29/2024 10:13 AM Immunization Administration Documentation Time Out Procedure Performed: Yes Patient Identified (Ask Name/Date of ): Yes Does the patient have a fever greater than 101 degrees today? No Patient allergic to latex? No VFC Stock: No Immunization(s) verified: Yes, Immunization Name: Flu, VIS Sheet(s) given: Yes Verified Side and Site: Yes Verified Shot(s) with Parent(s)/Patient: Yes * Vesta Reyes MD - 02/29/2024 9:47 AM EDT Images from the original note were not included. History of Present Illness Donita Brandon is a 83 year old female with medical problems including but not limited to HTN, Hyperlipidemia, CAD, s/p drug eluting stent, follows with cardiology,hx of non ST elevation [place], GERD,that presents for Follow Up (Para thyroid surgery about a year ago and has questions about medicine prescribed. Also has questions concerning her upcoming dexascan./Wants the Flu shot but has concerns of a cold and possible side effect of taking the flu shot currently.) Concerned about not able to loose weight enough despite working on diet, exercise. Discussed seeinggi nutrition. Pt follows with endocrine since parathyroid surgery. Reviewed last consult note, need for dexa nextyear, daily intake of calcium atleast 1200 mg daily. Discussed vaccines. Denies any chestpain/sob/palpitation/swealling in the legs. Some frequency of urine. Feels okay emotionally. Physical Exam Vitals: 02/29/24 0937 Temp: 37 C (98.6 F) Pulse: 74 Resp: 16 BP: 138/68 BP Readings from Last 3 Encounters: 02/29/24 138/68 02/06/24 138/72 01/13/24 122/60 Wt Readings from Last 3 Encounters: 02/29/24 72 kg (158 lb 12.8 oz) 02/06/24 71.7 kg (158 lb) 01/13/24 72.8 kg (160 lb 8 oz) BMI Readings from Last 3 Encounters: 02/29/24 29.52 kg/m 02/06/24 29.37 kg/m 01/13/24 29.84 kg/m Ht Readings from Last 3 Encounters: 11/07/23 1.562 m (5' 1.5") 10/05/23 1.562 m (5' 1.5") 08/25/23 1.537 m (5' 0.51") Blood pressure 138/68, pulse 74, temperature 37 C (98.6 F), temperature source Tympanic, resp. rate 16, weight 72 kg (158 lb 12.8 oz), not currently . HEENT: PERRLA, EOMI, anicteric sclera, b/l tympanic membrane is pearly white, no erythema, no pharyngeal erythema, no lymphadenopathy, neck supple CVS: RRR, no murmurs, rubs or gallops, s1 s 2normal. RESP: clear to auscultation, no wheezing or crackles ABD: soft, NT/ND EXT: no edema, cyanosis, peripheral pulses palpable bilaterally No large joint swelling, no redness, range of motion normal. Skin normal. Gait normal. Mood stable No focal weakness I have reviewed the following results: Urinalysis, POC Assessment and Plan HTN, goal below 140/90 (Primary) Stable. Continue current meds. Coronary artery disease involving anvik coronary artery of anvik heart without angina pectoris Stable. Continue current meds. S/P drug eluting coronary stent placement Senile osteoporosis Stabl.e Continue calcium 1200 mg daily and vit d 1000 unit daily. Prediabetes Continue diet and exercise. Hemoglobin AIC Results: Lab Results Component Value Date/Time HEMOGLOBIN A1C - [facility] 6.1 (H) 02/09/2023 11:05 AM HEMOGLOBIN A1C - [facility] 6.0 (H) 08/17/2022 12:28 PM HEMOGLOBIN A1C - [facility] 6.2 (H) 11/16/2021 10:35 AM HEMOGLOBIN A1C - [facility] 6.1 (H) 04/17/2020 02:46 PM HEMOGLOBIN A1C - [facility] 5.6 01/04/2019 09:42 AM HEMOGLOBIN A1C - [facility] 6.0 (H) 10/04/2018 10:52 AM ' Dyslipidemia, goal LDL below 70 On statin. Continue. Overweight (BMI 25.0-29.9) - GI NUTRITION REFERRAL OP Urgency of urination - CULTURE, URINE, QUANTITATIVE; Future; Expected date: 02/29/2024 - URINALYSIS WITH MICROSCOPIC EXAM; Future; Expected date: 02/29/2024 Follow Up: Return in about 6 months (around 08/29/2024) for Return with Physician. | For: Return with Physician | Check-out note: Switch dexa scan from may to July next year. Wrap-Up Time: I spent a total of 30-39 minutes (exact time 30 mins) on the date of service in preparation, delivery, and documentation of the care provided to Donita Brandon excluding any time spent in the performance of separately billed services. documented in this encounter Nursing Notes * Maxime Lucero, Student - 02/29/2024 9:39 AM EDT Chief Complaint Patient presents with Follow Up Para thyroid surgery about a year ago and has questions about medicine prescribed. Also has questions concerning her upcoming dexascan. Wants the Flu shot but has concerns of a cold and possible side effect of taking the flu shot currently. The patient has been properly identified by confirmation of name and date of . documented in this encounter Miscellaneous Notes * Addendum Note - Christine Villalobos MED ASSIST - 02/29/2024 10:14 AM EDT Addended by: CHRISTINE VILLALOBOS on: 02/29/2024 10:14 AM Modules accepted: Orders documented in this encounter Plan of Treatment Upcoming Encounters Date Type Department Care Team (Late st Contact Info) Description 03/05/2024 10:30 AM EST Office Visit Audiology [facility] [address] [address] Chioma Oshea Au.D. [address] [place] [address] 03/19/2024 10:30 AM EST Office Visit Audiology [facility] [address] [place] [address] Chioma Oshea Au.D. [address] [place] [address] 07/23/2024 11:00 AM EDT Office Visit Cardiology, [facility] [address] [place] [address] Arnulfo Arias PA-C [address] [place] [address] 08/06/2024 2:30 PM EDT Imaging Radiology, [facility] [address] [facility] [place] [address] 08/29/2024 9:20 AM EDT Office Visit General Internal Medicine [facility] [address] [facility] [place] [address] Vesta Reyes MD [address] [facility] [place] [address] 02/11/2025 2:00 PM EDT Office Visit Endocrinology [address] [place] [place] [phone] Jose Mendoza MD [address] [facility] [place] [address] Scheduled Orders Name Type Priority Associated Diagnoses Orde r Schedule CULTURE, URINE, QUANTITATIVE Lab Routine Urgency of urination Expected: 02/29/2024, Expires: 02/28/2025 URINALYSIS WITH MICROSCOPIC EXAM Lab Routine Urgency of urination Expected: 02/29/2024, Expires: 02/28/2025 Scheduled Referrals Name Type Priority Associated Diagnoses Orde r Schedule GI NUTRITION REFERRAL OP Referral Within 30 days (routine) Overweight (BMI 25.0-29.9) Ordered: 02/29/2024 Health Maintenance Due Date Last Done Comments Zoster Vaccines (2 of 3) 09/16/2011 07/22/2011 Adult Wellness Visit 05/17/2015 05/17/2014 COVID-19 Vaccine ( season) 2024 02/09/2022, 04/16/2021, 07/14/2020, Additional history exists Depression Screening 02/10/2024 02/09/2023 HbA1c 02/10/2024 02/09/2023, 0411/2022, 11/16/2021, Additional history exists Albumin/Creatinine Ratio 11/16/2024 11/16/2021, 09/30 GFR 02/22/2025 02/23/2024, 0310/2023, 02/09/2023, Additional history exists DTap/Tdap Vaccines (3 [...] this encounter Medical Devices Implanted Type Area Talent Acquisition Partner Device Identifier Shelf Expiration Date Model / Serial / Lot Lens Intraoc 21.5 - [id number] - [id number] Implanted:Qty: 1 on 06/01/2016 by Scott Mckee MD at OR [facility] Right: Eye [employer] 12/30/2020 [id number] / [id number] / [id number] Lens Intraoc 20.0 - [id number] - [id number] Implanted:Qty: 1 on 06/15/2016 by Scott Mckee MD at OR [facility] Left: Eye [employer] 01/29/2021 [id number] / [id number] / [id number] 2.0 Cannulated Screw Implanted:Qty: 1 on 07/01/2017 by Renea Landrum DPM at OR [facility] Left: Foot [employer] AR-8720-20P T / / Trim-It Drill Pin, 2 X100 Mm Implanted:Qty: 1 on 07/01/2017 by Renea Landrum DPM at OR [facility] Left: Foot [employer] 12/30/2018 [id number] / / [id number] documented as of this encounter Visit Diagnoses Diagnosis HTN, goal below 140/90- Primary Unspecified essential hypertension Coronary artery disease involving anvik coronary artery of anvik heart without angina pectoris S/P drug eluting coronary 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 Care Teams Aviation Maintenance Technician Relationship Specialty Start Date End Date Vesta Reyes MD [address] [place] [address] [place], [place] [address] PCP - General 08/16/07 documented as of this encounter
--- OUTSIDE RECORDS SUMMARY | 2024-06-12 07:51 | External Medical Summary | Summary of Care ---
Author Name Unknown Organization [facility] Address [address] [place] [address] Phone [phone] Care Team Providers Care Communications Professor Name Role Phone Vesta Reyes MD Primary Care Provider + Reason for Visit * Reason Comments Immunizations RSV vaccine Encounter Details Date Type Department Care Team (Late st Contact Info) Description 03/05/2024 11:00 AM EST Nurse Only Ancillary [facility] [address] [place] [address] Nurse, Int Med [address] [facility] [place] [address] Immunizations (RSV vaccine) Allergies Active Allergy Reactions Criticality Noted Date [...] Oral Tablet (Crestor)Indications :Coronary artery disease involving mohegan coronary artery of mohegan heart without angina pectoris,S/P drug eluting coronary [...] 11/07/2023 Active Additional Information Patient taking differently:2 [place] NasalDAILY PRN, Reported on 01/13/2024 Losartan Potassium 25 MG Oral Tablet (Cozaar)Indications: HTN, goal below 140/90 TAKE 1 TABLET BY MOUTH IN THE MORNING 90 Tablet 3 12/29/2023 Active EQ Aspirin Adult Low Dose 81 MG Oral Tablet Delayed Release (aspirin enteric coated)Indications:C oronary artery disease involving mohegan coronary artery of mohegan heart without angina pectoris Take 1 tablet [...] 70 07/06/2019 Coronary artery disease invo lving mohegan coronary artery of mohegan heart without angina pectoris 05/29/2017 S/P drug [...] mRNA, LNP-s, No Pre serve, 2-Dose Series (Fanmode) 04/16/2021,07/14/2020,06/09/2020 Covid-19, Mrna, Lnp-s, Pf, B ivalent, [...] Pressure - - Pulse - - Temperature 37.3 C (99.1 F) 03/05/2024 11:[address] Respiratory Rate - - Oxygen Saturation - - Inhaled Oxygen Concentration - - Weight - - Height - - Body Mass Index - - documented in this encounter Nursing Notes * Semaj Keys RN - 03/05/2024 11:07 AM EST Pre-Administration Time Out Procedure Performed: Yes Patient Identified (Ask Name/Date of ): Yes Does the patient have a fever greater than 101 degrees today? No Patient allergic to latex? No Has the patient ever fainted after receiving an injection? No VFC Stock: No Immunization(s) verified: Yes, Immunization Name: RSV Abrysvo, VIS Sheet(s) given: Yes Verified Side and Site: Yes Verified Shot(s) with Parent(s)/Patient: Yes documented in this encounter Plan of Treatment Upcoming Encounters Date Type Department Care Team (Late st Contact Info) Description 03/05/2024 1:00 PM EST Office Visit Audiology [facility] [address] [address] Chioma Oshea Au.D. [address] [place] [address] 03/19/2024 10:30 AM EST Office Visit Audiology [facility] [address] [address] Chioma Oshea Au.D. [address] [place] [address] 07/23/2024 11:00 AM EDT Office Visit Cardiology, [facility] [address] [place] [address] Arnulfo Arias PA-Hussein [address] [place] [address] 08/06/2024 2:30 PM EDT Imaging Radiology, [facility] [address] [facility] [place] [address] 08/29/2024 9:20 AM EDT Office Visit General Internal Medicine [facility] 200 [facility] [place] [address] Vesta Reyes MD [address] [place] [address] 02/11/2025 2:00 PM EDT Office Visit Endocrinology [address] [place] [phone] Jose Mendoza MD [address] [facility] [place] [address] Health Maintenance Due Date [...] this encounter Medical Devices Implanted Type Area Food Products Sales Representative Device Identifier Shelf Expiration Date Model / Serial / Lot Lens Intraoc 21.5 - [id number] - [id number] Implanted:Qty: 1 on 06/01/2016 by Scott Mckee MD at OR [facility] Right: Eye [employer] 12/30/2020 [id number] / [id number] / [id number] Lens Intraoc 20.0 - [id number] - [id number] Implanted:Qty: 1 on 06/15/2016 by Scott Mckee MD at OR [facility] Left: Eye [employer] 01/29/2021 [id number] / [id number] / [id number] 2.0 Cannulated Screw Implanted:Qty: 1 on 07/01/2017 by Renea Landrum DPM at OR [facility] Left: Foot [employer] AR-8720-20P T / / Trim-It Drill Pin, 2 X100 Mm Implanted:Qty: 1 on 07/01/2017 by Renea Landrum DPM at OR [facility] Left: Foot [employer] 12/30/2018 AR-[id number] / / [id number] documented as of this encounter Visit Diagnoses [...] and were consensually agreed upon. Care Teams Communications Professor Relationship Specialty Start Date End Date Vesta Reyes MD [address] [facility] [place] [address] PCP - General 08/16/07 documented as of this encounter
--- OUTSIDE RECORDS SUMMARY | 2024-06-12 07:51 | External Medical Summary | Summary of Care ---
Author Name Unknown Organization [facility] Address [address] [place] [address] Phone [phone] Care Team Providers Care Economic Developer Name Role Phone Vesta Reyes MD Primary Care Provider + Reason for Visit * Reason Onset Date Comments Order Request 02/17/2024 Encounter Details Date Type Department Care Team (Late st Contact Info) Description 02/17/2024 Telephone Access Center, [address] *DO NOT REMOVE THIS DEPARTMENT* [place] [address] Services, Scheduling [address] [place] [address] Order Request Allergies Active Allergy Reactions Criticality [...] 02/29/2024 Rosuvastatin Calcium 40 MG Oral Tablet (Crestor)Indicatio ns:Coronary artery disease involving [place] coronary artery of [place] heart without angina pectoris,S/P drug eluting coronary stent placement,History of non-ST elevation myocardial infarction (NSTEMI) Take 1 tablet by mouth once daily 90 Tablet 3 08/29/2023 Active Albuterol Sulfate HFA 108 (90 Base) MCG/ACT Inhalation Aerosol Solution Q6H 08/30/2023 Active Budesonide-Formote rol Fumarate 80-4.5 MCG/ACT Inhalation Aerosol (Symbicort)Indicat ions:Acute bronchitis, unspecified organism,Hiatal hernia,Wheezing-as sociated respiratory infection (WARI),Abnormal CXR (chest x-ray) Inhale 2 Puffs by mouth in the morning and 2 Puffs before bedtime. 10.2 g 1 09/05/2023 Active Additional Information Patient not taking.Reported on 11/07/2023 Metoprolol Succinate ER 25 MG Oral Tablet Extended Release 24 Hour (toPROL XL) Take 1 tablet by mouth once daily 90 Tablet 3 09/16/2023 Active Fluticasone Propionate 50 MCG/ACT Nasal Suspension (Flonase)Indicatio ns:Seasonal allergic rhinitis due to pollen Administer 2 Sprays into nostril in the morning. 48 g 11/07/2023 Active Additional Information Patient taking differently:2 [place] NasalDAILY PRN, Reported on 01/13/2024 Losartan Potassium 25 MG Oral Tablet (Cozaar)Indication s:HTN, goal below 140/90 TAKE 1 TABLET BY MOUTH IN THE MORNING 90 Tablet 3 12/29/2023 Active Loteprednol Etabonate 0.5 % Ophthalmic Suspension (Lotemax) Instill 1 Drop into both eyes in the morning and 1 Drop at noon and 1 Drop in the evening and 1 Drop before bedtime. 01/10/2024 02/29/20 24 Active EQ Aspirin Adult Low Dose 81 MG Oral Tablet Delayed Release (aspirin enteric coated)Indications :Coronary artery disease involving [place] coronary artery of [place] heart without angina pectoris Take 1 tablet by mouth once daily 90 Tablet 1 02/15/2024 Active Famotidine 20 MG Oral Tablet (Pepcid)Indication s:Hiatal hernia TAKE 1 TABLET BY MOUTH AT BEDTIME 30 Tablet 5 08/29/2023 02/27/20 24 Discontinued documented as of this encounter (statuses as of 02/29/2024) Active Problems Problem Noted Date Diagnosed Date Prediabetes 11/10/2020 Overview: Per Prediabetes protocol HTN, goal below 140/90 07/06/2019 Dyslipidemia, goal LDL below 70 07/06/2019 Coronary artery disease invo lving [place] coronary artery of [place] heart without angina pectoris 05/29/2017 S/P drug [...] encounter Miscellaneous Notes * Telephone Encounter - Natividad Sapp LPN - 02/29/2024 11:45 AM EDT Had appt * Telephone Encounter - Vesta Reyes MD - 02/27/2024 10:42 AM EDT Labs are stable except UA seems have infection. Urine culture was not done. We can discuss further with patient at the next office visit in 2 days. Continue hydration * Telephone Encounter - Carmel Wolf LPN - 02/24/2024 1:58 PM EDT TEST RESULTS REQUEST Who is requesting: Donita Brandon Test results that are being requested: urine Date of testin02/23/2024 Location of test: [facility] Ordering provider: Vesta Reyes MD Results available in chart: Yes * Telephone Encounter - Jimena Nguyen OSA - 02/17/2024 8:02 AM EDT Pt was offered to schedule lab orders for endocrinology. She states she thinks she may have a UTI so she would like Dr. Reyes to order a urine screen for this so she can get it done at the same time as her labs. She is planning to walk in to the lab at [facility]. Please call pt to advise. documented in this encounter Plan of Treatment Upcoming Encounters Date Type Department Care Team (Late st Contact Info) Description 03/05/2024 10:30 AM EST Office Visit Audiology [facility] [address] [facility] [place] [address] Chioma Oshea Au.D. [address] [place] [address] 03/05/2024 11:00 AM EST Nurse Only Ancillary [facility] [address] [place] [address] Nurse, Int Med 200 [facility] [place] [address] 03/19/2024 10:30 AM EST Office Visit Audiology [facility] 132 [facility] [place] [address] Chioma Oshea Au.D. [facility] [place] [address] 07/23/2024 11:00 AM EDT Office Visit Cardiology, [facility] 132 [facility] [place] [address] Arnulfo Arias PA-C [facility] [address] 08/06/2024 2:30 PM EDT Imaging Radiology, [place] [id number] [facility] [place] [address] 08/29/2024 9:20 AM EDT Office Visit General Internal Medicine [facility] [address] [place] [address] Vesta Reyes MD [address] [place] [address] 02/11/2025 2:00 PM EDT Office Visit Endocrinology [address] [place] [phone] Jose Mendoza MD [address] [place] [id number] Scheduled Orders Name Type Priority Associated Diagnoses Orde r Schedule HEMOGLOBIN A1C Lab Routine Prediabetes Expected: 02/27/2024 (Approximate), Expires: 02/26/2025 CULTURE, URINE, QUANTITATIVE Lab Routine Dysuria Expected: 02/27/2024, Expires: 02/26/2025 Health Maintenance Due Date Last Done Comments [...] this encounter Medical Devices Implanted Type Area Cork Sorter Device Identifier Shelf Expiration Date Model / Serial / Lot Lens Intraoc 21.5 - [id number] - [id number] Implanted:Qty: 1 on 06/01/2016 by Scott Mckee MD at OR [facility] Right: Eye [employer] 12/30/2020 [id number] / [id number] / [id number] Lens Intraoc 20.0 - [id number] - [id number] Implanted:Qty: 1 on 06/15/2016 by Scott Mckee MD at OR [facility] Left: Eye [employer]OMB 01/29/2021 [id number] / [id number] / [id number] 2.0 Cannulated Screw Implanted:Qty: 1 on 07/01/2017 by Renea Landrum DPM at OR [facility] Left: Foot [employer] AR-8720-20P T / / Trim-It Drill Pin, 2 X100 Mm Implanted:Qty: 1 on 07/01/2017 by Renea Landrum DPM at OR [facility] Left: Foot [employer] 12/30/2018 [id number] / / [id number] documented as of this encounter Visit Diagnoses Diagnosis Prediabetes- Primary Other abnormal glucose Dysuria documented in this encounter Advance Directives * [...] and were consensually agreed upon. Care Teams Economic Developer Relationship Specialty Start Date End Date Vesta Reyes MD [address] [place] [address] PCP - General 08/16/07 documented as of this encounter
--- OUTSIDE RECORDS SUMMARY | 2024-06-12 07:51 | External Medical Summary ---
Author Name Unknown Address Unknown Organization [id number]:LABORATORY [facility] [address]EV[facility] [address] - [address] [place] [address] Laboratory Report Ordering Provider Test Date Status SEBASTIAN JONES 03/05/2024 13:19:32 Final Observation Date Value Abnormality Reference (Units ) Status Color of Urine by Auto 03/05/2024 13:19:32 Yellow Light Yellow, Yellow, Dark Yellow Final Clarity, Urine 03/05/2024 13:19:32 Clear Clear Final Glucose [Mass/volume] in Urine by Automated test strip 03/05/2024 13:19:32 Negative Negative (mg/dL) Final Bilirubin.total [Presence] in Urine by Automated test strip 03/05/2024 13:19:32 Negative Negative Final Ketones [Mass/volume] in Urine by Automated test strip 03/05/2024 13:19:32 Negative Negative (mg/dL) Final Specific gravity, Urine 03/05/2024 13:19:32 1.010 1.003-1.030 Final Hemoglobin [Presence] in Urine by Automated test strip 03/05/2024 13:19:32 Trace Abnormal Negative Final pH, Urine 03/05/2024 13:19:32 6.0 5.0-7.5 (Units) Final Protein [Mass/volume] in Urine by Automated test strip 03/05/2024 13:19:32 Negative Negative (mg/dL) Final Urobilinogen [Mass/volume] in Urine by Automated test strip 03/05/2024 13:19:32 0.2 0.2, 1.0 (mg/dL) Final Nitrite [Presence] in Urine by Automated test strip 03/05/2024 13:19:32 Negative Negative Final Leukocyte esterase [Presence] in Urine by Automated test strip 03/05/2024 13:19:32 Large Abnormal Negative Final RBC, Urine 03/05/2024 13:19:32 3-5 Abnormal 0-2 (/HPF) Final WBC, Urine 03/05/2024 13:19:32 30-49 Abnormal 0-2 (/HPF) Final Bacteria [#/area] in Urine sediment by Microscopy high power field 03/05/2024 13:19:32 26-50 Abnormal 0-25 (/HPF) Final Transitional cells [#/area] in Urine sediment by Microscopy high power field 03/05/2024 13:19:32 1-4 Abnormal None (/HPF) Final Performing Location LABORATORY [place] [address] [address] - [address] [facility] [address]
--- OUTSIDE RECORDS SUMMARY | 2024-06-12 07:51 | External Medical Summary | Summary of Care ---
Author Name Unknown Organization [facility] Address [address] [place] [address] Phone [phone] Care Team Providers Care Pattern Layout Worker Name Role Phone Vesta Reyes MD Primary Care Provider + Reason for Referral * Evaluate & Treat - Unlimited Visits (Within 30 days (routine)) - Authorized Specialty Diagnoses / Procedures Referred By Contact Referred To Contact GI NUTRITION/IM / Gastroenterology Diagnoses Overweight (BMI 25.0-29.9) Vesta Reyes MD [address] [place] [address] Referral ID Status Reason Start Date Expiration Date Visits Requested Visits Authorized [id number] Authorized Specialty Services Required 4 999 999 [...] General Internal Medicine [place] [address] [facility] [place] [address] Vesta Reyes MD 200 [facility] [place] [address] HTN, goal below 140/90*; Coronary artery disease involving [place] coronary artery of [place] heart without angina pectoris; S/P drug eluting [...] Oral Tablet (Crestor)Indications :Coronary artery disease involving [place] coronary artery of [place] heart without angina pectoris,S/P drug eluting coronary [...] 11/07/2023 Active Additional Information Patient taking differently:2 [place] NasalDAILY PRN, Reported on 01/13/2024 Losartan Potassium [...] (aspirin enteric coated)Indications:C oronary artery disease involving [place] coronary artery of [place] heart without angina pectoris Take 1 tablet [...] 70 07/06/2019 Coronary artery disease invo lving [place] coronary artery of [place] heart without angina pectoris 05/29/2017 S/P drug [...] mRNA, LNP-s, No Pre serve, 2-Dose Series ([place]) 04/16/2021,07/14/2020,06/09/2020 Covid-19, Mrna, Lnp-s, Pf, B ivalent, 30 Mcg, IM, 12 yrs and above (imgScrimmage) 02/09/2022 Pneumococcal Conjugate Vacc, 13 Valent (Prevnar) 01/31/2015 Pneumococcal Polysaccharide PPV23 (Pneumovax) 08/18/2007 Season Influenza, Quad, PF, Adjuvanted, 65+ Yrs, IM (FLUAD) 01/10/2020 Seasonal Influenza Vac., MDV , IM, 0.5 mL (Fluzone) 01/31/2014,02/01/2013,01/24/2012,01/01,01/30/2010,01/17/2009,03/05/20 08,02/08/2007,03/16/2006,03/10/2005,1 2002,03/06/2002 01/31/2015 Seasonal Influenza, PF, 6 M & [...] kg (158 lb 12.8 oz) 02/29/2024 9:37 A M EDT Height - - Body Mass Index [...] you experiencing any cold symptoms or fever? No Have you had Guillain-[place] Syndrome (an illness that causes paralysis) within [...] today? No Patient allergic to latex? No C Stock: No Immunization(s) verified: Yes, Immunization Name: [...] follows with cardiology,hx of non ST elevation [place], GERD,that presents for Follow Up (Para thyroid [...] Continue current meds. Coronary artery disease involving [place] coronary artery of [place] heart without angina pectoris Stable. Continue current [...] 03/05/2024 10:30 AM EST Office Visit Audiology [facility] [address] [place] [address] Chioma Oshea Au.D. [address] [place] [address] 03/19/2024 10:30 AM EST [facility] [address] [place] [address] Chioma Oshea Au.D. [address] [place] [address] 05/14/2024 3:00 PM EST Imaging Radiology, [place] [id number] [facility] [place] [address] 07/23/2024 11:00 AM EDT Office Visit Cardiology, [facility] [address] [place] [address] Arnulfo Arias PA-C [address] [place] [address] 02/11/2025 2:00 PM EDT Office Visit Endocrinology [address] [place] [address] Jose Mendoza MD [address] [place] [address] Scheduled Orders Name Type [...] this encounter Medical Devices Implanted Type Area Lending Activities Supervisor Device Identifier Shelf Expiration Date Model / Serial / Lot Lens Intraoc 21.5 - [id number] - [id number] Implanted:Qty: 1 on 06/01/2016 by Scott Mckee MD at OR [facility] Right: Eye [employer] 12/30/2020 [id number] / [id number] / [id number] Lens Intraoc 20.0 - [id number] - [id number] Implanted:Qty: 1 on 06/15/2016 by Scott Mckee MD at OR [facility] Left: Eye BA[employer]CH [employer]OMB 01/29/2021 [id number] / [id number] / [id number] 2.0 Cannulated Screw Implanted:Qty: 1 on 07/01/2017 by Renea Landrum DPM at OR [facility] Left: Foot [employer] AR-8720-20P T / / Trim-It Drill Pin, 2 X100 Mm Implanted:Qty: 1 on 07/01/2017 by Renea Landrum DPM at OR [facility] Left: Foot [employer] 12/30/2018 [id number] / / [id number] documented as of this encounter Visit Diagnoses Diagnosis HTN, goal below 140/90- Primary Unspecified essential hypertension Coronary artery disease involving [place] coronary artery of [place] heart without angina pectoris S/P drug eluting [...] and were consensually agreed upon. Care Teams Pattern Layout Worker Relationship Specialty Start Date End Date Vesta Reyes MD [address] [place] [address], [place] [address] PCP - General 08/16/07 documented as of this encounter
--- OUTSIDE RECORDS SUMMARY | 2024-06-12 07:51 | External Medical Summary ---
Author Name Unknown Address Unknown Organization [id number]:LABORATORY [facility] - [address] [place] [id number] Laboratory Report Ordering Provider Test Date Status SEBASTIAN JONES 03/05/2024 13:19:32 Final Observation Date Value Abnormality Reference (Units) Status Bacteria identified in Specimen by Culture 03/05/2024 13:19:32 No significant growth Final Test: Culture, Urine, Quanti tative
Specimen Source: Urine, Clean Catch
Specimen Type: Urine
Specimen Date: 03/05/2024 1319
Result Date: 03/06/2024 1224
Result Status: Final result
Resulting Lab: LABORATORY [facility]
[address]
[place] [id number]

CULTURE

No significant growth

null Performing Location LABORATORY [facility] - [address] [facility] [address]
--- OUTSIDE RECORDS SUMMARY | 2024-06-12 07:51 | External Medical Summary | Summary of Care ---
Author Name Unknown Organization [facility] Address [address] [place] [address] Phone [phone] Care Team Providers Care Ply Splicer Name Role Phone Vesta Reyes MD Primary Care Provider + Reason for Referral * Evaluate & Treat - Unlimited Visits (Within 30 days (routine)) - Authorized Specialty Diagnoses / Procedures Referred By Contact Referred To Contact GI NUTRITION/IM / Gastroenterology Diagnoses Overweight (BMI 25.0-29.9) Vesta Reyes MD [address] [place] [address] Referral ID Status Reason Start Date Expiration Date Visits Requested Visits Authorized [id number] Authorized Specialty Services Required 4 999 999 [...] General Internal Medicine [place] 200 [facility] [place] [address] Vesta Reyes MD 200 [facility] [place] [address] HTN, goal below 140/90*; Coronary artery disease involving [place] coronary artery of [place] heart without angina pectoris; S/P drug eluting [...] Oral Tablet (Crestor)Indications :Coronary artery disease involving [place] coronary artery of [place] heart without angina pectoris,S/P drug eluting coronary [...] 11/07/2023 Active Additional Information Patient taking differently:2 [place] NasalDAILY PRN, Reported on 01/13/2024 Losartan Potassium [...] (aspirin enteric coated)Indications:C oronary artery disease involving [place] coronary artery of [place] heart without angina pectoris Take 1 tablet [...] 70 07/06/2019 Coronary artery disease invo lving [place] coronary artery of [place] heart without angina pectoris 05/29/2017 S/P drug [...] mRNA, LNP-s, No Pre serve, 2-Dose Series ([place]) 04/16/2021,07/14/2020,06/09/2020 Covid-19, Mrna, Lnp-s, Pf, B ivalent, 30 Mcg, IM, 12 yrs and above ([place]) 02/09/2022 Pneumococcal Conjugate Vacc, 13 Valent (Prevnar) [...] - OK with provider. Have you had Guillain-[place] Syndrome (an illness that causes paralysis) within [...] follows with cardiology,hx of non ST elevation [place], GERD,that presents for Follow Up (Para thyroid [...] Continue current meds. Coronary artery disease involving [place] coronary artery of [place] heart without angina pectoris Stable. Continue current [...] 03/05/2024 10:30 AM EST Office Visit Audiology [facility] [address] [place] [address] Chioma Oshea Au.D. [address] [place] [address] 03/19/2024 10:30 AM EST [facility] [address] [place] [address] Chioma Oshea Au.D. [address] [place] [address] 05/14/2024 3:00 PM EST [address] Radiology, [address] [address] 07/23/2024 11:00 AM EDT Office Visit Cardiology, [facility] [address] [place] [address] Arnulfo Arias PA-C [address] [place] [address] 02/11/2025 2:00 PM EDT Office Visit Endocrinology [address] [place] [phone] Jose Mendoza MD [address] [place] [address] Scheduled Orders Name Type [...] this encounter Medical Devices Implanted Type Area Head Chopper Device Identifier Shelf Expiration Date Model / Serial / Lot Lens Intraoc 21.5 - [id number] - [id number] Implanted:Qty: 1 on 06/01/2016 by Scott Mckee MD at OR [facility] Right: Eye [employer] 12/30/2020 [id number] / [id number] / [id number] Lens Intraoc 20.0 - [id number] - [id number] Implanted:Qty: 1 on 06/15/2016 by Scott Mckee MD at OR [facility] Left: Eye [employer]USCH [employer]OMB 01/29/2021 [id number] / [id number] / [id number] 2.0 Cannulated Screw Implanted:Qty: 1 on 07/01/2017 by Renea Lanrdum DPM at OR [facility] Left: Foot [employer] AR-8720-20P T / / Trim-It Drill Pin, 2 X100 Mm Implanted:Qty: 1 on 07/01/2017 by Renea Landrum DPM at OR [facility] Left: Foot [employer] 12/30/2018 [id number] / / [id number] documented as of this encounter Visit Diagnoses Diagnosis HTN, goal below 140/90- Primary Unspecified essential hypertension Coronary artery disease involving [place] coronary artery of [place] heart without angina pectoris S/P drug eluting [...] and were consensually agreed upon. Care Teams Ply Splicer Relationship Specialty Start Date End Date Vesta Reyes MD 200 [place] [address] PCP - General 08/16/07 documented as of this encounter
--- OUTSIDE RECORDS SUMMARY | 2024-06-12 07:52 | External Medical Summary ---
Author Name Unknown Address Unknown Organization K01:LABORATORY [facility] - [address] [place] [address] Laboratory Report Ordering Provider Test Date Status DB MUSTAFA 02/23/2024 10:07:16 Final Deficient: <20 ng/mL
Ins ufficient: 20-29 ng/mL
Recommended/Optimum:30-50 ng/mL

Vitamin D intoxication is rare. If suspicious of Vitamin D toxicity, evaluation of serum Calcium and PTH is recommended. Observation Date Value Abnormality Reference (Units ) Status 25-OH Vitamin D total 02/23/2024 10:07:16 38 >19 (ng/mL) Final Performing Location LABORATORY [facility] - [address] [place] [address]
--- OUTSIDE RECORDS SUMMARY | 2024-06-12 07:52 | External Medical Summary | Summary of Care ---
Author Name Unknown Organization [facility] Address [address] [place] [address] Phone [phone] Care Team Providers Care Business Technology Analyst Name Role Phone Vesta Reyes MD Primary Care Provider + Reason for Visit * Reason Comments eRx-Medication Refill Encounter Details Date Type Department Care Team (Late st Contact Info) Description 02/25/2024 Refill General Internal Medicine [facility] [place] [address] [facility] [place] [address] Michelle Morales MD [address] [place] [address] Hiatal hernia Allergies Active Allergy Reactions Criticality Noted Date Comments Pollen 11/05/2021 Hasn't been properly diagnosed, but has allergy symptoms worse in summer documented as of this encounter (statuses as of 02/27/2024) Medications Medication Sig Dispensed Refills Start Date [...] Oral Tablet (Crestor)Indicatio ns:Coronary artery disease involving chevak coronary artery of chev[place] heart without angina pectoris,S/P drug eluting coronary [...] 11/07/2023 Active Additional Information Patient taking differently:2 [place] NasalDAILY PRN, Reported on 01/13/2024 Losartan Potassium 25 MG Oral Tablet (Cozaar)Indication s:HTN, goal below 140/90 TAKE 1 TABLET BY MOUTH IN THE MORNING 90 Tablet 3 12/29/2023 Active EQ Aspirin Adult Low Dose 81 MG Oral Tablet Delayed Release (aspirin enteric coated)Indications :Coronary artery disease involving chevak coronary artery of chev[place] heart without angina pectoris Take 1 tablet by mouth once daily 90 Tablet 1 02/15/2024 Active Famotidine 20 MG Oral Tablet (Pepcid)Indication s:Hiatal hernia TAKE 1 TABLET BY MOUTH AT BEDTIME 90 Tablet 1 02/27/2024 Active Famotidine 20 MG Oral Tablet (Pepcid)Indication s:Hiatal hernia TAKE 1 TABLET BY MOUTH AT BEDTIME 30 Tablet 5 08/29/2023 02/27/20 24 Discontinued documented as of this encounter (statuses as of 02/27/2024) Active Problems Problem Noted Date Diagnosed Date Prediabetes 11/10/2020 Overview: Per Prediabetes protocol HTN, goal below 140/90 07/06/2019 Dyslipidemia, goal LDL below 70 07/06/2019 Coronary artery disease invo lving chevak coronary artery of [place] heart without angina pectoris 05/29/2017 S/P drug eluting coronary stent placement 2017 History of non-ST elevation myocardial infarctio n (NSTEMI) 05/29/2017 Senile osteoporosis 03/10/2017 Gastroesophageal reflux disease without esophagi tis 03/10/2017 documented as of this encounter (statuses as of 02/27/2024) Resolved Problems Problem Noted Date Diagnosed Date [...] as of this encounter (statuses as of 02/27/2024) Immunizations Name Administration Dates Next Due COVID-19 mRNA, LNP-s, No Pre serve, 2-Dose Series ([employer]) 04/16/2021,07/14/2020,06/09/2020 Covid-19, Mrna, Lnp-s, Pf, B ivalent, [...] encounter Miscellaneous Notes * Telephone Encounter - Jackeline Tam [facility] - 02/27/2024 12:01 PM EDT Signed Prescriptions: Disp Refills Famotidine 20 MG Oral Tablet (Pepcid) 90 Tab*1 Sig: TAKE 1 TABLET BY MOUTH AT BEDTIMEAuthorizing Provider: Keenan MORALES User: JACKELINE TAM-------- documented in this encounter Plan of Treatment Upcoming Encounters Date Type Department Care Team (Late st Contact Info) Description 02/29/2024 9:40 AM EDT Office Visit [facility] [address] [place] [address] Vesta Reyes MD [address] [place] [address] 03/05/2024 10:30 AM EST Office Visit Audiology [facility] [address] [address] Chioma Oshea Au.D. [address] [id number] 03/19/2024 10:30 AM EST Office Visit Audiology [facility] [address] [address] Chioma Oshea Au.D. [address] [id number] 05/14/2024 3:00 PM EST Imaging Radiology, [place] [id number] [facility] [place] [address] 07/23/2024 11:00 AM EDT Office Visit Cardiology, [facility] [address] [place] [address] Arnulfo Arias PA-C [address] [place] [address] Health Maintenance Due Date Last Done Comments [...] this encounter Medical Devices Implanted Type Area Workforce Planner Device Identifier Shelf Expiration Date Model / Serial / Lot Lens Intraoc 21.5 - [id number] - [id number] Implanted:Qty: 1 on 06/01/2016 by Scott Mckee MD at OR [facility] Right: Eye [employer] 12/30/2020 [id number] / [id number] / [id number] Lens Intraoc 20.0 - [id number] - [id number] Implanted:Qty: 1 on 06/15/2016 by Scott Mckee MD at OR [facility] Left: Eye [employer] 01/29/2021 [id number] / [id number] / [id number] 2.0 Cannulated Screw Implanted:Qty: 1 on 07/01/2017 by Renea Landrum DPM at OR [facility] Left: Foot [employer] [id number] T / / Trim-It Drill Pin, 2 X100 Mm Implanted:Qty: 1 on 07/01/2017 by Renea Landrum DPM at OR [facility] Left: Foot [employer] 12/30/2018 [id number] / / [id number] documented as of this encounter Visit Diagnoses Diagnosis Hiatal hernia Diaphragmatic hernia without mention of obstruction or gangrene documented in this encounter Advance Directives * [...] were consensually agreed upon. Care Teams Business Technology Analyst Relationship Specialty Start Date End Date Vesta Reyes MD [facility] [place] [address] PCP - General 08/16/07 documented as of this encounter
--- OUTSIDE RECORDS SUMMARY | 2024-06-12 07:52 | External Medical Summary ---
Author Name Unknown Address Unknown Organization K09:[facility] [address] [place] [address] Laboratory Report Ordering Provider Test Date Status MUSTAFA,DB 02/23/2024 10:07:16 Final Observation Date Value Abnormality Reference (Units ) Status Albumin 02/23/2024 10:07:16 4.2 3.8-5.0 (g /dL) Final Performing Location [facility] [address] [place] [address]
--- OUTSIDE RECORDS SUMMARY | 2024-06-12 07:52 | External Medical Summary ---
Author Name Unknown Address Unknown Organization K09:[facility] [address] [place] [address] Laboratory Report Ordering Provider Test Date Status SEBASTIAN JONES 02/23/2024 10:12:54 Final Observation Date Value Abnormality Reference (Units ) Status Color of Urine by Auto 02/23/2024 10:12:54 Yellow Light Yellow, Yellow, Dark Yellow Final Clarity, Urine 02/23/2024 10:12:54 Clear Clear Final Glucose [Mass/volume] in Urine by Automated test strip 02/23/2024 10:12:54 Negative Negative (mg/dL) Final Bilirubin.total [Presence] in Urine by Automated test strip 02/23/2024 10:12:54 Negative Negative Final Ketones [Mass/volume] in Urine by Automated test strip 02/23/2024 10:12:54 Negative Negative (mg/dL) Final Specific gravity, Urine 02/23/2024 10:12:54 >=1.030 1.003-1.030 Final Hemoglobin [Presence] in Urine by Automated test strip 02/23/2024 10:12:54 Small Abnormal Negative Final pH, Urine 02/23/2024 10:12:54 5.5 5.0-7.5 (Units) Final Protein [Mass/volume] in Urine by Automated test strip 02/23/2024 10:12:54 30 Abnormal Negative (mg/dL) Final Urobilinogen [Mass/volume] in Urine by Automated test strip 02/23/2024 10:12:54 1.0 0.2, 1.0 (mg/dL) Final Nitrite [Presence] in Urine by Automated test strip 02/23/2024 10:12:54 Negative Negative Final Leukocyte esterase [Presence] in Urine by Automated test strip 02/23/2024 10:12:54 Small Abnormal Negative Final RBC, Urine 02/23/2024 10:12:54 10-19 Abnormal 0-2 (/HPF) Final WBC, Urine 02/23/2024 10:12:54 10-19 Abnormal 0-2 (/HPF) Final Bacteria [#/area] in Urine sediment by Microscopy high power field 02/23/2024 10:12:54 51-100 Abnormal 0-25 (/HPF) Final Performing Location [facility] [address] [place] [address]
--- OUTSIDE RECORDS SUMMARY | 2024-06-12 07:52 | External Medical Summary ---
Author Name Unknown Address Unknown Organization K01:[facility] [place] [facility] [address] [place] [address] Laboratory Report Ordering Provider Test Date Status MUSTAFA,DB 02/23/2024 10:07:16 Final Observation Date Value Abnormality Reference (Units ) Status Parathyrin.intact [Mass/volume] in Serum or Plasma 02/23/2024 10:07:16 92 Above high normal 15-65 (pg/mL) Final Performing Location [facility] [place] - [address] [place] [id number]
--- OUTSIDE RECORDS SUMMARY | 2024-06-12 07:52 | External Medical Summary | Summary of Care ---
Author Name Unknown Organization [facility] Address [address] [place] [address] Phone [phone] Care Team Providers Care Stockkeeper Name Role Phone Vesta Reyes MD Primary Care Provider + Reason for Visit * Reason Comments Follow Up Encounter Details Date Type Department Care Team (Latest Contact Info) Description 02/06/2024 2:00 PM EDT Office Visit Endocrinology [address] [place] [address] Ramsey Ace MD [address] [place] [address] Primary hyperparathyroidism (HCC)*; Age-related osteoporosis without current pathological fracture; S/P removal of parathyroid gland Allergies Active Allergy Reactions Criticality Noted Date Comments Pollen 11/05/2021 Hasn't been properly diagnosed, but has allergy symptoms worse in summer documented as of this encounter (statuses as of 02/24/2024) Medications Medication Sig Dispensed Refills Start Date [...] Oral Tablet (Crestor)Indicatio ns:Coronary artery disease involving pechanga coronary artery of pechanga heart without angina pectoris,S/P drug eluting coronary [...] 11/07/2023 Active Additional Information Patient taking differently:2 [place] NasalDAILY PRN, Reported on 01/13/2024 Losartan Potassium 25 MG Oral Tablet (Cozaar)Indication s:HTN, goal below 140/90 TAKE 1 TABLET BY MOUTH IN THE MORNING 90 Tablet 3 12/29/2023 Active EQ Aspirin Adult Low Dose 81 MG Oral Tablet Delayed Release (aspirin enteric coated)Indications :Coronary artery disease involving pechanga coronary artery of pechanga heart without angina pectoris Take 1 tablet by mouth once daily 90 Tablet 2 05/23/2023 02/15/20 24 Discontinued documented as of this encounter (statuses as of 02/24/2024) Active Problems Problem Noted Date Diagnosed Date Prediabetes 11/10/2020 Overview: Per Prediabetes protocol HTN, goal below 140/90 07/06/2019 Dyslipidemia, goal LDL below 70 07/06/2019 Coronary artery disease invo lving pechanga coronary artery of pechanga heart without angina pectoris 05/29/2017 S/P drug eluting coronary stent placement 2017 History of non-ST elevation myocardial infarctio n (NSTEMI) 05/29/2017 Senile osteoporosis 03/10/2017 Gastroesophageal reflux disease without esophagi tis 03/10/2017 documented as of this encounter (statuses as of 02/24/2024) Resolved Problems Problem Noted Date Diagnosed Date [...] as of this encounter (statuses as of 02/24/2024) Immunizations Name Administration Dates Next Due COVID-19 mRNA, LNP-s, No Pre serve, 2-Dose Series (Hel[employer]is) 04/16/2021,07/14/2020,06/09/2020 Covid-19, Mrna, Lnp-s, Pf, B ivalent, 30 Mcg, IM, 12 yrs and above (Helixis) 02/09/2022 Pneumococcal Conjugate Vacc, 13 Valent (Prevnar) [...] Never Smokeless Tobacco: Never Tobacco Cessation:Counseling Given: No Alcohol Use Standard Drinks/Week Comments Yes 0 [...] Sign Reading Time Taken Comments Blood Pressure 138/72 02/06/2024 1:23 PM EDT Pulse 69 02/06/2024 1:23 PM EDT Temperature - - Respiratory Rate 18 02/06/2024 1:23 PM EDT Oxygen Saturation 98% 02/06/2024 1:23 PM EDT Inhaled Oxygen Concentration - - Weight 71.7 kg (158 lb) 02/06/2024 1:23 PM EDT Height - - Body Mass Index 29.37 11/07/2023 12:53 PM EDT documented in this encounter Progress Notes * Ramsey Ace MD - 02/06/2024 1:24 PM EDT CC Hypercalcemia Hyperparathyroidism. Status post 3 gland parathyroidectomy 08/01/2023 History of osteoporosis Referred by: Vesta Reyes MD Date of service: 02/06/2024. Last outpatient endocrine visit:03/17/2023 Accompanied by: Kim RAMSEY Donita Brandon is a 83 year old female with hypercalcemia -hypercalcemia at least since 2019 -elevated PTH -has had vitamin-D deficiency in the past with subsequent normalization No calcium supplementation. Dietary calcium intake is not very. Does not take any Tums or Rolaids. Not on HCTZ or lithium Taking vitamin D supplementation-1000 IU/day Has history of osteoporosis---sees Rheumatology/seen in [facility] clinic Has been on Prolia 60 mg [...] hypercalcemia, nephrolithiasis, pituitary tumors, or ulcer disease. No nausea, abdominal pain or chronic constipation. No history of peptic ulcer disease or pancreatitis. Had fatigue, poor sleep. No mood irritability or issues with long-term memory. No cognitive issues. Reports arthralgias especially pain in lower back and hips. No history of glucocorticoid use. No history of rheumatoid arthritis. Nonsmoker. No alcohol use Interval history: 1. Parathyroid imaging (4 [address] CT neck) in 2020 with 2 potential parathyroid candidates. Seen by ENT (Dr. Blank) in 2020. Recalls that surgery was proposed but not pushed hence she thought that it was not necessary. She had repeat [address] neck on 03/31/2023 which raised possibility of multi gland disease IMPRESSION 1. 2 soft tissue densities adjacent [...] focus of parathyroid gland is not excluded. For further evaluation, she had parathyroid SPECT CT on 04/15/2023 which did not show any parathyroid adenoma IMPRESSION No scintigraphic evidence of parathyroid adenoma. 2. She had subtotal parathyroidectomy on 08/01/[address] Berger 08/01/2023 Final Diagnosis A. Parathyroid gland, right inferior, excision: Mild hypercellular parathyroid gland tissue (see NOTE) Specimen weight: 0.07 grams B. Parathyroid gland, left superior, excision: Hypercellular parathyroid gland tissue (see NOTE) Specimen weight: 0.44 grams C. Parathyroid gland, right superior, excision: Hypercellular parathyroid gland tissue (see NOTE) Specimen weight: 0.45 grams 3. Postoperative PTH and calcium normalized. Subsequently, elevation in PTH noted though calcium has stayed normal. She reports adequate dietary calcium intake. She takes 1000 IU of vitamin-D daily. Denies interval falls, fractures, kidney stones, constipation. Continues to have some fatigue and arthralgias. 4. She reports weight gain especially after her coronary artery intervention. Following with Cardiology. Admits partial adherence with healthy lifestyle. Lab review: Component Latest Ref Rng & [...] increase of 7 % the total hip. PMH, PSH, FH, SH reviewed and no changes noted except for what is mentioned in HPI MEDS Current Outpatient Medications Medication Sig Dispense Refill Losartan Potassium 25 MG Oral Tablet (Cozaar) TAKE 1 TABLET BY MOUTH IN THE MORNING 90 Tablet 3 Fluticasone Propionate 50 MCG/ACT Nasal Suspension (Flonase) Administer 2 Sprays into nostril in the morning. (Patient taking differently: Administer 2 Sprays into nostril daily as needed.) 48 g 0 Metoprolol Succinate ER 25 MG Oral Tablet Extended Release 24 Hour (toPROL XL) Take 1 tablet by mouth once daily 90 Tablet 3 Albuterol Sulfate HFA 108 (90 Base) MCG/ACT Inhalation Aerosol Solution Q6H (Patient not taking: Reported on 11/07/2023) Budesonide-Formoterol Fumarate 80-4.5 MCG/ACT Inhalation Aerosol (Symbicort) Inhale 2 Puffs by mouth in the morning and 2 Puffs before bedtime. (Patient not taking: Reported on 11/07/2023) 10.2 g 1 Famotidine 20 MG Oral Tablet (Pepcid) TAKE 1 TABLET BY MOUTH AT BEDTIME 30 Tablet 5 Rosuvastatin Calcium 40 MG Oral Tablet (Crestor) Take 1 tablet by mouth once daily 90 Tablet 3 Zoster Vac Recomb Adjuvanted 50 MCG/0.5ML Intramuscular Suspension Reconstituted (Shingrix) Inject 0.5 mL into a large muscle now and repeat dose in 60 to 180 days 1 Each 1 EQ Aspirin Adult Low Dose 81 MG Oral Tablet Delayed Release (aspirin enteric coated) Take 1 tablet by mouth once daily 90 Tablet 2 Pantoprazole Sodium 40 MG Oral Tablet Delayed Release (Protonix) Take 1 tablet by mouth once daily 90 Tablet 3 Loratadine 10 MG Oral Capsule Take 1 Capsule by mouth as needed for Rhinitis. Nitroglycerin 0.4 MG Sublingual Tablet Sublingual (Nitrostat) Place 1 Tablet under the tongue every5 minutes as needed for Pain, Chest. 25 Tablet 5 Ascorbic Acid 500 MG CAPS Take 1 Capsule by mouth in the morning. B-12 1000 MCG PO CAPS one daily VITAMIN D 1000 UNIT PO CAPS 1 capsule daily No current facility-administered medications for this visit. ROS: As per HPI. Others reviewed and noted to be negative PE BP 138/72 (BP Site: Left Arm, BP Position: Sitting, BP Cuff Size: Regular) | Pulse 69 | Resp 18 | Wt 71.7 kg (158 lb) | SpO2 98% | BMI 29.37 kg/m | BSA 1.76 m General appearance: Well-developed, well-nourished, not in [...] decrease of 6.4 % the total hip. Intra operative and post operative PTH and Calcium trend: Latest Reference Range & Units 08/01/23 07:46 08/01/23 08:15 08/01/23 08:31 08/01/23 08:46 08/01/23 09:07 08/01/23 10:02 PTH 15 - 65 pg/mL 29 PTH, Intraoperative 10 - 65 pg/mL 479 (H) 203 (H) 212 (H) 211 (H) 257 (H) Latest Reference Range & Units 08/12/23 09:56 11/07/23 13:53 PTH 15 - 65 pg/mL 92 (H) 82 (H) Latest Reference Range & Units 08/01/23 10:02 08/12/23 09:56 09/05/23 11:35 11/07/23 13:53 CALCIUM 8.4 - 10.2 mg/dL 8.7 9.3 9.8 9.6 Magnesium 1.5 - 2.6 mg/dL 2.1 IMP 1. Hypercalcemia 2. Hyperparathyroidism. Status post 3 gland parathyroidectomy on 08/01/2023 3. Vitamin-D deficiency 4. Renal stones 5. Osteoporosis Comments: Patient had PTH mediated hypercalcemia (elevated corrected serum calcium [...] of primary hyperparathyroidism has been discussed with patient on previous Endocrine encounters. She was deemed to be candidate for surgical management of primary hyperparathyroidism on account of: Osteoporosis History of nephrolithiasis She had 3.[address] Berger on 08/01/2023. Postoperative PTH on day of surgery normalized with subsequent elevation. Postoperative calcium has remained normal. Clinically asymptomatic. I plan to recheck her PTH, BMP, albumin and vitamin-D levels. If, there is evidence of recurrence of primary hyperparathyroidism based on evaluation, will discuss case with Dr. Berger about re-exploration. Meanwhile, I have advised patient to continue vitamin-D 1000 IU daily and continue to have 2-3 servings of dietary calcium daily. She has verbalized understanding. As BMD is expected to improve within 12-18 months after parathyroid surgery, I have suggested to hold off on osteoporosis treatment. I will advise to repeat DEXA scan in July 2024. If based on that scan, fracture risk is deemed to be high, will consider osteoporosis treatment with denosumab. For weight gain concerns, I will check her TSH. She has been advised to improve her compliance withhealthy lifestyle. Goal should be to lose about 5% to 10% of current body weight by therapeutic lifestyle changes in next 3-6 months. Follow-up: 12 months or sooner if needed This chart was completed in part utilizing [employer] Voice Recognition Software. Grammatical errors, random [...] in case of any questions or concerns. Ramsey Ace MD Endocrinology Physician [address], [place] [address] CC:Vesta Reyes MD * Iraida Dash CMA - 02/06/2024 1:18 PM EDT Patient was instructed to not get up on the exam table/exam chair until directed and assisted by their provider; patient is to remain seated in the chair/ wheelchair/ exam table/ exam chair for fall prevention and safety reasons. Patient is aware to have assistance to step down off exam table/exam chair with personnel. Patient voiced full comprehension of instructions. documented in this encounter Miscellaneous Notes * Addendum Note - Ramsey Ace MD - 02/24/2024 2:10 PM EDTAddended by: RAMSEY ACE on: 02/24/2024 02:10 PM Modules accepted: Orders documented in this encounter Plan of Treatment Upcoming Encounters Date Type Department Care Team (Late st Contact Info) Description 02/29/2024 9:40 AM EDT Office Visit General Internal Medicine [facility] [address] [facility] [place] [address] Vesta Reyes MD [address] [facility] [place] [address] 03/05/2024 10:30 AM EST Office Visit Audiology [facility] [address] [place] [address] Chioma Oshea Au.D. [address] [place] [address] 03/19/2024 10:30 AM EST Office Visit Audiology [facility] [address] [place] [address] Chioma Oshea Au.D. [address] [place] [address] 05/14/2024 3:00 PM EST Imaging Radiology, [facility] [address] [facility] [place] [address] 07/23/2024 11:00 AM EDT Office Visit Cardiology, [facility] [address] [place] [address] Arnulfo Arias PA-C [address] [place] [address] Scheduled Orders Name Type Priority Associated Diagnoses Orde r Schedule PTH Lab Routine Primary hyperparathyroidism (HCC) Expected: 05/26/2024 (Approximate), Expires: 02/23/2025 CALCIUM Lab Routine Primary hyperparathyroidism (HCC) Expected: 05/26/2024 (Approximate), Expires: 02/23/2025 ALBUMIN Lab Routine Primary hyperparathyroidism (HCC) Expected: 05/26/2024 (Approximate), Expires: 02/23/2025 Health Maintenance Due Date Last Done Comments [...] encounter Medical Devices Implanted Type Area Quality Control Projectionist Device Identifier Shelf Expiration Date Model / Serial / Lot Lens Intraoc 21.5 - [id number] - [id number] Implanted:Qty: 1 on 06/01/2016 by Scott Mckee MD at OR [facility] Right: Eye [employer] 12/30/2020 [id number] / [id number] / [id number] Lens Intraoc 20.0 - [id number] - [id number] Implanted:Qty: 1 on 06/15/2016 by Scott Mckee MD at OR [facility] Left: Eye [employer] 01/29/2021 [id number] / [id number] / [id number] 2.0 Cannulated Screw Implanted:Qty: 1 on 07/01/2017 by Renea Landrum DPM at OR [facility] Left: Foot [employer] [id number] T / / Trim-It Drill Pin, 2 X100 Mm Implanted:Qty: 1 on 07/01/2017 by Renea Landrum DPM at OR [facility] Left: Foot [employer] 12/30/2018 [id number] / / [id number] documented as of this encounter Results * ALBUMIN (02/23/2024 10:07 AM EDT) Albumin 4.2 3.8 - 5.0 g/dL 02/23/2024 11:39 AM EDT [facility] 56-02 Blood Venous blood specimen / Unknown Venipuncture / Unknown 02/23/2024 10:07 AM EDT 02/23/2024 10:07 AM EDT Ramsey Ace MD LAB BLOOD ORDERABLES Performing Organization Address City/[facility]/ZIP Co de Phone Number LABORATORY [place] [phone] [place] [address] * 25-HYDROXY VITAMIN D (02/23/2024 10:07 AM EDT) 25-Hydroxy Vitamin D 38 >19 ng/mL 02/23/2024 9:42 PM EDT [facility] [place] Venous blood specimen / Unknown Venipuncture / Unknown 02/23/2024 10:07 AM EDT 02/23/2024 10:07 AM EDT Narrative [facility] [place] - 02/23/2024 9:42 PM EDT Deficient: <20 ng/mL Insufficient: 20-29 ng/mL Recommended/Optimum:30-50 ng/mL Vitamin D intoxication is rare. If suspicious of Vitamin D toxicity, evaluation of serum Calcium and PTH is recommended. Ramsey Ace MD LAB BLOOD ORDERABLES Performing Organization Address [facility] Co de Phone Number [facility] [place] [place] [address] [place] [address] * TSH WITH FREE T4 IF INDICATED (02/23/2024 10:07 AM EDT) Pathologist [facility] TSH 1.53 0.27 - 4.20 uIU/mL 02/23/2024 9:33 PM EDT [facility] [place] [place] Blood Venous blood specimen / Unknown Venipuncture / Unknown 02/23/2024 10:07 AM EDT 02/23/2024 10:07 AM EDT Ramsey Ace MD LAB BLOOD ORDERABLES Performing Organization Address City/[facility]/ZIP Co de Phone Number [facility] [place] [place] [address] [place] [address] * BASIC METABOLIC PANEL (02/23/2024 10:07 AM EDT) Pathologist [facility] BUN 11 6 - 20 mg/dL 02/23/2024 11:39 AM EDT [facility] [place] 56- CREATININE 0.7 0.5 - 1.0 mg/dL 02/23/2024 11:39 AM EDT [facility] 56- EGFR 87 >=60 mL/min 02/23/2024 11:39 AM EDT [facility] 56 Comment:eGFR is calculated b ased on the CKD-EPI 2020 equation. SODIUM 140 135 - 146 mmol/L 02/23/2024 11:39 AM EDT [facility] 56 POTASSIUM 3.9 3.5 - 5.1 mmol/L 02/23/2024 11:39 AM EDT [address] CHLORIDE 102 98 - 107 mmol/L 02/23/2024 11:39 AM EDT [address] CO2 26 22 - 32 mmol/L 02/23/2024 11:39 AM EDT [address] ANION GAP 12 7 - 15 mmol/L 02/23/2024 11:39 AM EDT [address] GLUCOSE 107 70 - 120 mg/dL 02/23/2024 11:39 AM EDT [address] CALCIUM 8.9 8.4 - 10.2 mg/dL 02/23/2024 11:39 AM EDT [address] Blood Venous blood specimen / Unknown Venipuncture / Unknown 02/23/2024 10:07 AM EDT 02/23/2024 10:07 AM EDT Ramsey Ace MD LAB BLOOD ORDERABLES [facility] [address] [place] [address] * (ABNORMAL) PTH (02/23/2024 10:07 AM EDT) Pathologist [facility] PTH 92(H) 15 - 65 pg/mL 02/23/2024 9:42 PM EDT [facility] [place] [place] Blood Venous blood specimen / Unknown Venipuncture / Unknown 02/23/2024 10:07 AM EDT 02/23/2024 10:07 AM EDT Ramsey Ace MD LAB BLOOD ORDERABLES [facility] [place] [address] [place] [address] documented in this encounter Visit Diagnoses Diagnosis Primary hyperparathyroidism (HCC)- Primary Primary hyperparathyroidism Age-related osteoporosis without current pathological fracture Senile osteoporosis S/P removal of parathyroid gland Other postprocedural status documented in this encounter Advance Directives * [...] and were consensually agreed upon. Care Teams Stockkeeper Relationship Specialty Start Date End Date Vesta Reyes MD [address] [facility] [place] [address] PCP - General 08/16/07 documented as of this encounter"
--- OUTSIDE RECORDS SUMMARY | 2024-06-12 07:52 | External Medical Summary ---
Author Name Unknown Address Unknown Organization [id number]:LABORATORY [facility] - [address] [place] [address] Laboratory Report Ordering Provider Test Date Status MUSTAFA,DB 02/23/2024 10:07:16 Final Observation Date Value Abnormality Reference (Units ) Status TSH 02/23/2024 10:07:16 1.53 0.27-4.20 (uIU/mL) Final Performing Location [facility] - [address] [facility] [address]
--- OUTSIDE RECORDS SUMMARY | 2024-06-12 07:52 | External Medical Summary ---
Author Name Unknown Address Unknown Organization K09:[facility] [place] [address] Laboratory Report Ordering Provider Test Date Status DB MUSTAFA 02/23/2024 10:07:16 Final Observation Date Value Abnormality Reference (Units ) Status BUN 02/23/2024 10:07:16 11 6-20 (mg/dL) Final Creatinine 02/23/2024 10:07:16 0.7 0.5-1.0 (mg/dL) Final Glomerular filtration rate/1.73 sq M.predicted [Volume Rate/Area] in Serum, Plasma or Blood by Creatinine-based formula (CKD-EPI) 02/23/2024 10:07:16 87 >=60 (mL/min) Final eGFR is calculated based on the CKD-EPI 2020 equation. Sodium 02/23/2024 10:07:16 140 135-146 (m mol/L) Final Potassium 02/23/2024 10:07:16 3.9 3.5-5.1 (m mol/L) Final Cl 02/23/2024 10:07:16 102 98-107 (mm ol/L) Final CO2 02/23/2024 10:07:16 26 22-32 (mmo l/L) Final Anion gap 02/23/2024 10:07:16 12 7-15 (mmol /L) Final Glucose 02/23/2024 10:07:16 107 70-120 (mg /dL) Final Calcium 02/23/2024 10:07:16 8.9 8.4-10.2 ( mg/dL) Final Performing Location [facility] [place] [address]
--- OUTSIDE RECORDS SUMMARY | 2024-06-12 07:52 | External Medical Summary | Summary of Care ---
Author Name Unknown Organization [facility] Address [address] [place] [address] Phone [phone] Care Team Providers Care Cantilever Crane Operator Name Role Phone Vesta Reyes MD Primary Care Provider + Reason for Visit * Reason Comments Outpatient Testing Encounter Details Date Type Department Care Team (Latest Contact Info) Description 02/23/2024 10:00 AM EDT Laboratory Laboratory [facility] [place] [place] [address] [place] [phone] [place], Lab Scenery [address] [place] [address] Primary hyperparathyroidism (HCC); S/P removal of parathyroid gland; Age-related osteoporosis without current pathological fracture; Other microscopic hematuria Allergies Active Allergy Reactions Criticality Noted Date Comments Pollen 11/05/2021 Hasn't been properly diagnosed, but has allergy symptoms worse in summer documented as of this encounter (statuses as of 02/23/2024) Medications Medication Sig Dispensed Refills Start Date [...] Oral Tablet (Crestor)Indications :Coronary artery disease involving [place] coronary artery of [place] heart without angina pectoris,S/P drug eluting coronary [...] 11/07/2023 Active Additional Information Patient taking differently:2 [place] NasalDAILY PRN, Reported on 01/13/2024 Losartan Potassium 25 MG Oral Tablet (Cozaar)Indications: HTN, goal below 140/90 TAKE 1 TABLET BY MOUTH IN THE MORNING 90 Tablet 3 12/29/2023 Active EQ Aspirin Adult Low Dose 81 MG Oral Tablet Delayed Release (aspirin enteric coated)Indications:C oronary artery disease involving [place] coronary artery of [place] heart without angina pectoris Take 1 tablet by mouth once daily 90 Tablet 1 02/15/2024 Active documented as of this encounter (statuses as of 02/23/2024) Active Problems Problem Noted Date Diagnosed Date Prediabetes 11/10/2020 Overview: Per Prediabetes protocol HTN, goal below 140/90 07/06/2019 Dyslipidemia, goal LDL below 70 07/06/2019 Coronary artery disease invo lving [place] coronary artery of [place] heart without angina pectoris 05/29/2017 S/P drug eluting coronary stent placement 2017 History of non-ST elevation myocardial infarctio n (NSTEMI) 05/29/2017 Senile osteoporosis 03/10/2017 Gastroesophageal reflux disease without esophagi tis 03/10/2017 documented as of this encounter (statuses as of 02/23/2024) Resolved Problems Problem Noted Date Diagnosed Date [...] as of this encounter (statuses as of 02/23/2024) Immunizations Name Administration Dates Next Due COVID-19 mRNA, LNP-s, No Pre serve, 2-Dose Series ([employer]) 04/16/2021,07/14/2020,06/09/2020 Covid-19, Mrna, Lnp-s, Pf, B ivalent, 30 Mcg, IM, 12 yrs and above ([employer]) 02/09/2022 Pneumococcal Conjugate Vacc, 13 Valent (Prevnar) [...] AM EDT Office Visit General Internal Medicine [facility] [address] [place] [address] Vesta Reyes MD 200 [facility] [place] [address] 03/05/2024 10:30 AM EST Office Visit Audiology [facility] [address] [place] [address] Chioma Oshea Au.D. [address] [place] [address] 03/19/2024 10:30 AM EST Office Visit Audiology [facility] [address] [place] [address] Chioma Oshea Au.D. [address] [place] [address] 05/14/2024 3:00 PM EST Imaging Radiology, [facility] [address] [facility] [place] [address] 07/23/2024 11:00 AM EDT Office Visit Cardiology, [facility] [address] [place] [address] Arnulfo Arias PA-C [address] [place] [address] Pending Results Name Type Priority Associated Diagnoses Date /Time PTH Lab Routine Primary hyperparathyroidism (HCC) 02/23/2024 10:07 AM EDT BASIC METABOLIC PANEL Lab Routine Primary hyperparathyroidism (HCC) 02/23/2024 10:07 AM EDT TSH WITH FREE T4 IF INDICATED Lab Routine S/P removal of parathyroid gland 02/23/2024 10:07 AM EDT 25-HYDROXY VITAMIN D Lab Routine Age-related osteoporosis without current pathological fracture 02/23/2024 10:07 AM EDT ALBUMIN Lab Routine Primary hyperparathyroidism (HCC) 02/23/2024 10:07 AM EDT URINALYSIS WITH MICROSCOPIC EXAM Lab STAT Other microscopic hematuria 02/23/2024 10:12 AM EDT Health Maintenance Due Date Last [...] history exists Albumin/Creatinine Ratio 11/16/2024 11/16/2021, 09/30 DTap/Tdap Vaccines (3 - Td or Tdap) [...] this encounter Medical Devices Implanted Type Area Pitching Coach Device Identifier Shelf Expiration Date Model / Serial / Lot Lens Intraoc 21.5 - [id number] - [id number] Implanted:Qty: 1 on 06/01/2016 by Scott Mckee MD at OR [facility] Right: Eye BAUSCH & LOMB 12/30/2020 [id number] / [id number] / [id number] Lens Intraoc 20.0 - [id number] - [id number] Implanted:Qty: 1 on 06/15/2016 by Scott Mckee MD at OR [facility] Left: Eye BAUSCH & LOMB 01/29/2021 [id number] / [id number] / [id number] 2.0 Cannulated Screw Implanted:Qty: 1 on 07/01/2017 by Renea Landrum DPM at OR [facility] Left: Foot [employer] AR-8720-20P T / / Trim-It Drill Pin, 2 X100 Mm Implanted:Qty: 1 on 07/01/2017 by Renea Landrum DPM at OR [facility] Left: Foot [employer] 12/30/2018 [id number] / / [id number] documented as of this encounter Visit Diagnoses Diagnosis Primary hyperparathyroidism (HCC) Primary hyperparathyroidism S/P removal of parathyroid gland Other postprocedural status Age-related osteoporosis without current pathological fracture Senile osteoporosis Other microscopic hematuria documented in this encounter Advance Directives * [...] and were consensually agreed upon. Care Teams Cantilever Crane Operator Relationship Specialty Start Date End Date Vesta Reyes MD 200 [place] [address] PCP - General 08/16/07 documented as of this encounter
--- OUTSIDE RECORDS SUMMARY | 2024-06-12 07:52 | External Medical Summary | Summary of Care ---
Author Name Unknown Organization [facility] Address [address] [place] [address] Phone [phone] Care Team Providers Care Outsole Handler Name Role Phone Vesta Reyes MD Primary Care Provider + Reason for Visit * Reason Comments Outpatient Testing Encounter Details Date Type Department Care Team (Latest Contact Info) Description 02/23/2024 10:00 AM EDT Laboratory Laboratory [facility]ery [place] [address] [place] [phone] [place], Lab Scenery [address] [place] [address] Primary hyperparathyroidism (HCC); S/P removal of parathyroid [...] Oral Tablet (Crestor)Indications :Coronary artery disease involving [place] coronary artery of [place] heart without angina pectoris,S/P drug eluting coronary [...] 11/07/2023 Active Additional Information Patient taking differently:2 [place] NasalDAILY PRN, Reported on 01/13/2024 Losartan Potassium 25 MG Oral Tablet (Cozaar)Indications: HTN, goal below 140/90 TAKE 1 TABLET BY MOUTH IN THE MORNING 90 Tablet 3 12/29/2023 Active EQ Aspirin Adult Low Dose 81 MG Oral Tablet Delayed Release (aspirin enteric coated)Indications:C oronary artery disease involving [place] coronary artery of [place] heart without angina pectoris Take 1 tablet by mouth once daily 90 Tablet 1 02/15/2024 Active documented as of this encounter (statuses as of 02/23/2024) Active Problems Problem Noted Date Diagnosed Date Prediabetes 11/10/2020 Overview: Per Prediabetes protocol HTN, goal below 140/90 07/06/2019 Dyslipidemia, goal LDL below 70 07/06/2019 Coronary artery disease invo lving [place] coronary artery of [place] heart without angina pectoris 05/29/2017 S/P drug [...] mRNA, LNP-s, No Pre serve, 2-Dose Series ([employer]) 04/16/2021,07/14/2020,06/09/2020 Covid-19, Mrna, Lnp-s, Pf, B ivalent, 30 Mcg, IM, 12 yrs and above ([employer]) 02/09/2022 Pneumococcal Conjugate Vacc, 13 Valent (Prevnar) [...] AM EDT Office Visit General Internal Medicine [facility] [address] [place] [address] Vesta Reyes MD 200 [facility] [place] [address] 03/05/2024 10:30 AM EST Office Visit Audiology [facility] [address] [place] [address] Chioma Oshea Au.D. [address] [place] [address] 03/19/2024 10:30 AM EST Office Visit Audiology [facility] [address] [place] [address] Chioma Oshea Au.D. [address] [place] [address] 05/14/2024 3:00 PM EST Imaging Radiology, [facility] [address] [facility] [place] [address] 07/23/2024 11:00 AM EDT Office Visit Cardiology, [facility] [address] [place] [address] Arnulfo Arias PA-C [address] [place] [address] Pending Results Name Type Priority Associated Diagnoses [...] this encounter Medical Devices Implanted Type Area Milk Condenser Device Identifier Shelf Expiration Date Model / Serial / Lot Lens Intraoc 21.5 - [id number] - [id number] Implanted:Qty: 1 on 06/01/2016 by Scott Mckee MD at OR [facility] Right: Eye BAUSCH [employer] LOMB 12/30/2020 [id number] / [id number] / [id number] Lens Intraoc 20.0 - [id number] - [id number] Implanted:Qty: 1 on 06/15/2016 by Scott Mckee MD at OR [facility] Left: Eye BAUSCH & LOMB 01/29/2021 [id number] / [id number] / [id number] 2.0 Cannulated Screw Implanted:Qty: 1 on 07/01/2017 by Renea Landrum DPM at OR [facility] Left: Foot [employer] AR-8720-20P T / / Trim-It Drill Pin, 2 X100 Mm Implanted:Qty: 1 on 07/01/2017 by Renea Landrum DPM at OR [facility] Left: Foot [employer] 12/30/2018 AR-[id number] / / [id number] documented as of this encounter Visit Diagnoses [...] and were consensually agreed upon. Care Teams Outsole Handler Relationship Specialty Start Date End Date Vesta Reyes MD 200 [facility] [place] [address] PCP - General 08/16/07 documented as of this encounter
--- OUTSIDE RECORDS SUMMARY | 2024-06-12 07:52 | External Medical Summary | Summary of Care ---
Author Name Unknown Organization [facility] [address] [facility] [address] Phone [phone] Care Team Providers Care Cleaning Associate Name Role Phone Vesta Reyes MD Primary Care Provider + Encounter Details Date Type Department Care Team (Latest Contact Info) Description 02/20/2024 12:30 PM EDT Office Visit Audiology [facility] [address] [place] [address] Chioma Oshea Au.D. [address] [place] [phone] Bilateral sensorineural hearing loss* Allergies Active Allergy Reactions Criticality Noted Date Comments Pollen 11/05/2021 Hasn't been properly diagnosed, but has allergy symptoms worse in summer documented as of this encounter (statuses as of 02/20/2024) Medications Medication Sig Dispensed Refills Start Date [...] Oral Tablet (Crestor)Indications :Coronary artery disease involving [place] coronary artery of [place] heart without angina pectoris,S/P drug eluting coronary [...] 11/07/2023 Active Additional Information Patient taking differently:2 [place] NasalDAILY PRN, Reported on 01/13/2024 Losartan Potassium 25 MG Oral Tablet (Cozaar)Indications: HTN, goal below 140/90 TAKE 1 TABLET BY MOUTH IN THE MORNING 90 Tablet 3 12/29/2023 Active EQ Aspirin Adult Low Dose 81 MG Oral Tablet Delayed Release (aspirin enteric coated)Indications:C oronary artery disease involving [place] coronary artery of [place] heart without angina pectoris Take 1 tablet by mouth once daily 90 Tablet 1 02/15/2024 Active documented as of this encounter (statuses as of 02/20/2024) Active Problems Problem Noted Date Diagnosed Date Prediabetes 11/10/2020 Overview: Per Prediabetes protocol HTN, goal below 140/90 07/06/2019 Dyslipidemia, goal LDL below 70 07/06/2019 Coronary artery disease invo lving [place] coronary artery of [place] heart without angina pectoris 05/29/2017 S/P drug eluting coronary stent placement 2017 History of non-ST elevation myocardial infarctio n (NSTEMI) 05/29/2017 Senile osteoporosis 03/10/2017 Gastroesophageal reflux disease without esophagi tis 03/10/2017 documented as of this encounter (statuses as of 02/20/2024) Resolved Problems Problem Noted Date Diagnosed Date [...] as of this encounter (statuses as of 02/20/2024) Immunizations Name Administration Dates Next Due COVID-19 mRNA, LNP-s, No Pre serve, 2-Dose Series ([employer]) 04/16/2021,07/14/2020,06/09/2020 Covid-19, Mrna, Lnp-s, Pf, B ivalent, 30 Mcg, IM, 12 yrs and above ([employer]) 02/09/2022 Pneumococcal Conjugate Vacc, 13 Valent (Prevnar) [...] Progress Notes * Chioma Oshea Au.D. - 02/20/2024 12:11 PM EDT Hearing Aid Fitting Reason for Visit Donita was seen today for a hearing aid fitting. She was seen for a hearing evaluation in this department on 01/16/2024 and was found to have a bilateral sensorineural hearing loss. At a hearing aid consultation shortly after, Donita was advised as to the options for amplification, including in-the-ear vs. behind-the ear aids, levels of technology, and monaural vs. binaural fittings. Donita decided to obtain binaural elzydivg-yq-mjk-ear hearing aids and returns today to be fit with them. Hearing Aid Specifications Centrifugal Machine Tender: Oticon Model:Intent 2 Serial Number: [id number] (R) [id number] (L) Ear: R/L Speaker: #2 85 dB Dome:8 mm open chawla Battery: rechargeable Warranty Expiration: 03/14/2027 Hearing Aid Programming The hearing aids were connected to the UBIKOD software. The hearing aids were set to adaptation level 2. No target adjustments were made. Donita felt that the sound quality of the aids was clear and at a comfortable volume. She is an experienced user of OTC aids. Hearing Aid Orientation The hearing aids fit well and Donita had little difficulty with insertion and removal of the aids. Donita was instructed as to the care, use, and maintenance of the hearing aids. Realistic expectationsfor the use of amplification was also discussed. She was advised to try and wear the hearing aids for at least 6-8 hours daily. She was advised not to wear the hearing aids at nighttime, around water, or around loud noise. Donita understood all instructions. All of her questions were answered. Plan Donita will return in 2 weeks for a hearing aid check. She will call for an appointment sooner if she has any difficulty with the hearing aids. Cody Hanson, CCC-A documented in this encounter Plan of Treatment Upcoming Encounters Date Type Department Care Team (Late st Contact Info) Description 02/23/2024 10:00 AM EDT Laboratory Laboratory [facility] [place] [address] [place] [phone] [facility] 200 [facility] [place] [address] 02/29/2024 9:40 AM EDT Office Visit General Internal Medicine [facility] 200 [facility] [place] [address] Vesta Reyes MD 200 [facility] [place] [address] 03/05/2024 10:30 AM EST Office Visit Audiology [facility] [address] [place] [address] Chioma Oshea Au.D. [address] [place] [address] 03/19/2024 10:30 AM EST Office Visit Audiology [facility] [address] [place] [address] Chioma Oshea Au.D. 132 [facility] [place] [address] 05/14/2024 3:00 PM EST Imaging Radiology, [place] [id number] [facility] [place] [address] 07/23/2024 11:00 AM EDT Office Visit Cardiology, [facility] [address] [place] [address] Arnulfo Arias PA-C 132 [facility] [place] [address] Health Maintenance Due Date Last Done Comments [...] this encounter Medical Devices Implanted Type Area Centrifugal Machine Tender Device Identifier Shelf Expiration Date Model / Serial / Lot Lens Intraoc 21.5 - [id number] - [id number] Implanted:Qty: 1 on 06/01/2016 by Scott Mckee MD at OR [facility] Right: Eye BAUSCH [employer] LOMB 12/30/2020 [id number] / [id number] / [id number] Lens Intraoc 20.0 - [id number] - [id number] Implanted:Qty: 1 on 06/15/2016 by Scott Mckee MD at OR [facility] Left: Eye BAUSCH & LOMB 01/29/2021 [id number] / [id number] / [id number] 2.0 Cannulated Screw Implanted:Qty: 1 on 07/01/2017 by Renea Landrum DPM at OR [facility] Left: Foot [employer] AR-8720-20P T / / Trim-It Drill Pin, 2 X100 Mm Implanted:Qty: 1 on 07/01/2017 by Renea Landrum DPM at OR [facility] Left: Foot [employer] 12/30/2018 [id number] / / [id number] documented as of this encounter Visit Diagnoses [...] and were consensually agreed upon. Care Teams Cleaning Associate Relationship Specialty Start Date End Date Vesta Reyes MD [address] [place] [address], [place] [address] PCP - General 08/16/07 documented as of this encounter
--- OUTSIDE RECORDS SUMMARY | 2024-06-12 07:53 | External Medical Summary | Summary of Care ---
Author Name Unknown Organization [facility] Address [address] [place] [address] Phone [phone] Care Team Providers Care Batchmaker Name Role Phone Karen Reyes MD Primary Care Provider + Reason for Visit * Reason Comments eRx-Medication Refill Encounter Details Date Type Department Care Team (Late st Contact Info) Description 02/13/2024 Refill General Internal Medicine [facility] [place] 200 [facility] [place] [address] Karen Reyes MD 200 [place] [address] Coronary artery disease involving [place] coronary artery of [place] heart without angina pectoris Allergies Active Allergy Reactions Criticality Noted Date Comments Pollen 11/05/2021 Hasn't been properly diagnosed, but has allergy symptoms worse in summer documented as of this encounter (statuses as of 02/15/2024) Medications Medication Sig Dispensed Refills Start Date [...] Oral Tablet (Crestor)Indicatio ns:Coronary artery disease involving [place] coronary artery of [place] heart without angina pectoris,S/P drug eluting [...] 11/07/2023 Active Additional Information Patient taking differently:2 [place] NasalDAILY PRN, Reported on 01/13/2024 Losartan Potassium 25 MG Oral Tablet (Cozaar)Indication s:HTN, goal below 140/90 TAKE 1 TABLET BY MOUTH IN THE MORNING 90 Tablet 3 12/29/2023 Active EQ Aspirin Adult Low Dose 81 MG Oral Tablet Delayed Release (aspirin enteric coated)Indications :Coronary artery disease involving [place] coronary artery of [place] heart without angina pectoris Take 1 tablet by mouth once daily 90 Tablet 1 02/15/2024 Active EQ Aspirin Adult Low Dose 81 MG Oral Tablet Delayed Release (aspirin enteric coated)Indications :Coronary artery disease involving [place] coronary artery of [place] heart without angina pectoris Take 1 tablet by mouth once daily 90 Tablet 2 05/23/2023 02/15/20 24 Discontinued documented as of this encounter (statuses as of 02/15/2024) Active Problems Problem Noted Date Diagnosed Date Prediabetes 11/10/2020 Overview: Per Prediabetes protocol HTN, goal below 140/90 07/06/2019 Dyslipidemia, goal LDL below 70 07/06/2019 Coronary artery disease invo lving [place] coronary artery of [place] heart without angina pectoris 05/29/2017 S/P drug eluting coronary stent placement 2017 History of non-ST elevation myocardial infarctio n (NSTEMI) 05/29/2017 Senile osteoporosis 03/10/2017 Gastroesophageal reflux disease without esophagi tis 03/10/2017 documented as of this encounter (statuses as of 02/15/2024) Resolved Problems Problem Noted Date Diagnosed Date [...] as of this encounter (statuses as of 02/15/2024) Immunizations Name Administration Dates Next Due COVID-19 mRNA, LNP-s, No Pre serve, 2-Dose Series (Functional Neuromodulation) 04/16/2021,07/14/2020,06/09/2020 Covid-19, Mrna, Lnp-s, Pf, B ivalent, [...] encounter Miscellaneous Notes * Telephone Encounter - [facility] - 02/15/2024 8:46 AM EDTSigned Prescriptions: Disp Refills EQ Aspirin Adult Low Dose 81 MG Oral Table*90 Tab*1 Sig: Take 1 tablet by mouth once dailyAuthorizing Provider: KAREN REYES User: LIN TRAN- documented in this encounter Plan of Treatment Upcoming Encounters Date Type Department Care Team (Late st Contact Info) Description 02/29/2024 9:40 AM EDT Office Visit General Internal Medicine [facility] [address] [place] [address] Karen Reyes MD 200 [facility] [place] [address] 03/01/2024 11:30 AM EDT Office Visit Audiology [facility] [address] [place] [address] Chioma Oshea Au.D. [address] [place] [address] 05/14/2024 3:00 PM EST Imaging Radiology, [facility] [address] [facility] [place] [address] 07/23/2024 11:00 AM EDT Office Visit Cardiology, [facility] [address] [place] [address] Arnulfo Arias PA-C [address] [place] [address] Health Maintenance Due Date Last Done Comments [...] this encounter Medical Devices Implanted Type Area Corsetier Device Identifier Shelf Expiration Date Model / Serial / Lot Lens Intraoc 21.5 - [id number] - [id number] Implanted:Qty: 1 on 06/01/2016 by Scott Mckee MD at OR [facility] Right: Eye [employer]USCH [employer] LOMB 12/30/2020 [id number] / [id number] / [id number] Lens Intraoc 20.0 - [id number] - [id number] Implanted:Qty: 1 on 06/15/2016 by Scott Mckee MD at OR [facility] Left: Eye BAUSCH & LOMB 01/29/2021 [id number] / [id number] / [id number] 2.0 Cannulated Screw Implanted:Qty: 1 on 07/01/2017 by Renea Landrum DPM at OR [facility] Left: Foot [employer] AR-8720-20P T / / Trim-It Drill Pin, 2 X100 Mm Implanted:Qty: 1 on 07/01/2017 by Renea Landrum DPM at OR [facility] Left: Foot [employer] 12/30/2018 [id number] / / [id number] documented as of this encounter Visit Diagnoses Diagnosis Coronary artery disease involving [place] coronary artery of [place] heart without angina pectoris documented in this encounter Advance Directives * [...] and were consensually agreed upon. Care Teams Batchmaker Relationship Specialty Start Date End Date Karen Reyes MD [address] [place] [address], [place] [address] PCP - General 08/16/07 documented as of this encounter
--- OUTSIDE RECORDS SUMMARY | 2024-06-12 07:53 | External Medical Summary | Summary of Care ---
Author Name Unknown Organization [facility] Address [address] [place] [address] Phone [phone] Care Team Providers Care Plant Ecologist Name Role Phone Vesta Reyes MD Primary Care Provider + Reason for Visit * Ancillary Services (Within 30 days (routine)) - Authorized Specialty Diagnoses / Procedures Referred By Contac t Referred To Contact Audiology Diagnoses Sensorineural hearing loss (SNHL) of both ears Michelle Morales MD [address] [place] [address] Referral ID Status Reason Start Date Expiration Date Visits Requested Visits Authorized [id number] Authorized Ancillary Services Required 09/05/2023 [id number] Encounter Details Date Type Department Care Team (Latest Contact Info) Description 01/16/2024 2:00 PM EDT Office Visit Audiology [facility] [address] [place] [address] Chioma Oshea Au.D. [address] [facility] [place] [address] Bilateral sensorineural hearing loss* Allergies Active Allergy Reactions Criticality Noted Date Comments Pollen 11/05/2021 Hasn't been properly diagnosed, but has allergy symptoms worse in summer documented as of this encounter (statuses as of 01/16/2024) Medications Medication Sig Dispensed Refills Start Date [...] (aspirin enteric coated)Indications:C oronary artery disease involving [place] coronary artery of [place] heart without angina pectoris Take 1 tablet by mouth once daily 90 Tablet 2 05/23/2023 Active Zoster Vac Recomb Adjuvanted 50 MCG/0.5ML [...] Oral Tablet (Crestor)Indications :Coronary artery disease involving [place] coronary artery of [place] heart without angina pectoris,S/P drug eluting coronary [...] 11/07/2023 Active Additional Information Patient taking differently:2 [place] NasalDAILY PRN, Reported on 01/13/2024 Losartan Potassium 25 MG Oral Tablet (Cozaar)Indications: HTN, goal below 140/90 TAKE 1 TABLET BY MOUTH IN THE MORNING 90 Tablet 3 12/29/2023 Active Loteprednol Etabonate 0.5 % Ophthalmic Suspension (Lotemax) Instill 1 Drop into both eyes in the morning and 1 Drop at noon and 1 Drop in the evening and 1 Drop before bedtime. 01/10/2024 01/24/2024 Active documented as of this encounter (statuses as of 01/16/2024) Active Problems Problem Noted Date Diagnosed Date Prediabetes 11/10/2020 Overview: Per Prediabetes protocol HTN, goal below 140/90 07/06/2019 Dyslipidemia, goal LDL below 70 07/06/2019 Coronary artery disease invo lving [place] coronary artery of [place] heart without angina pectoris 05/29/2017 S/P drug eluting coronary stent placement 2017 History of non-ST elevation myocardial infarctio n (NSTEMI) 05/29/2017 Senile osteoporosis 03/10/2017 Gastroesophageal reflux disease without esophagi tis 03/10/2017 documented as of this encounter (statuses as of 01/16/2024) Resolved Problems Problem Noted Date Diagnosed Date [...] as of this encounter (statuses as of 01/16/2024) Immunizations Name Administration Dates Next Due COVID-19 [...] IM 01/13/2017,01/22/2016,01/31/2015 01/21/2017 Seasonal Influenza, Trivalen t, (IIV3), with Preserv, (Fluzone) 01/31/2014,02/01/2013,01/24/2012,01/01,01/30/2010,01/17/2009,03/05/20 08,02/08/2007,03/16/2006 01/31/2015 Seasonal Influenza, Trivalen t, Adjuvanted, 65+ YRS, [...] Progress Notes * Chioma Oshea Au.D. - 01/16/2024 2:05 PM EDT Images from the original note were not included. Donita Brandon, 83 year old was seen for an audiologic evaluation with a primary complaint of hearing issues. Is on her second set of over the counter hearing aids. Onset set from [employer]. was relatively happy with them at first, but questions if they are even working anymore. They charge but she has issues hearing people. Notices issues hearing her and friends. [facility] and she would like what he has. Referred by: Vesta Reyes MD Audiologic/Otologic History: Case historian: Patient Hearing loss: known hearing troubles. No diagnosed hearing loss Tinnitus: No Aural pressure/otalgia: No Disequilibrium/Vertigo: No Ear infections: No Noise Exposure:No Familial Hearing Loss: No Ivan/Vestibulotoxic medication: No Head Injury: No Previous audiologic evaluation: online hearing test Current Hearing Aids: OTC Procedures and Results Otoscopy: Ear canals are free of occluding cerumen for audiologic testing bilaterally. TMs are intact. Tympanometry 46871 See scanned results Right: WNL for static admittance, tympanometric peak pressure, equivalent volume, and tympanic width("Type A") Left: WNL for static admittance, tympanometric peak pressure, equivalent volume, and tympanic width("Type A") Standard Audiometric Testing 51632 ABSD, insert earphones earphones, Good reliability Right: sensorineural hearing loss Left: sensorineural hearing loss Speech recognition thresholds were consistent with hearing thresholds. Word recognition scores, obtained via monitored live voice were: right 88%, left 92% Impression: Bilateral symmetric sensorineural hearing loss Recommendations: Audiology services as needed., Audiologic monitoring of this identified hearing loss, Hearing aid consultation , and Use of communication strategies and assistive technology in challenging listening situations Cody Hanson, CCC-A Scan: audiogram, tympanograms cc: Vesta Reyes MD documented in this encounter Plan of Treatment Upcoming Encounters Date Type Department Care Team (Late st Contact Info) Description 01/31/2024 11:00 AM EDT Office Visit Audiology [facility] [address] [place] [address] Chioma Oshea Au.D. 132 [facility] [place] [address] 02/06/2024 2:00 PM EDT Office Visit Endocrinology [address] [place] [phone] Jose Mendoza MD [address] [place] [facility] [place] [address] 02/29/2024 9:40 AM EDT Office Visit General Internal Medicine [facility] [address] [place] [address] Vesta Reyes MD [address] [place] [address] 05/14/2024 3:00 PM EST Imaging Radiology, [facility] [address] [facility] [place] [address] 07/23/2024 11:00 AM EDT Office Visit Cardiology, [facility] [address] [place] [address] Arnulfo Arias PA-C [address] [place] [address] Health Maintenance Due Date Last Done Comments [...] this encounter Medical Devices Implanted Type Area Pharmacy Resident Device Identifier Shelf Expiration Date Model / Serial / Lot Lens Intraoc 21.5 - [id number] - [id number] Implanted:Qty: 1 on 06/01/2016 by Scott Mckee MD at OR [facility] Right: Eye BAUSCH [employer] LOMB 12/30/2020 [id number] / [id number] / [id number] Lens Intraoc 20.0 - [id number] - [id number] Implanted:Qty: 1 on 06/15/2016 by Scott Mckee MD at OR [facility] Left: Eye BAUSCH & LOMB 01/29/2021 [id number] / [id number] / [id number] 2.0 Cannulated Screw Implanted:Qty: 1 on 07/01/2017 by Renea Landrum DPM at OR [facility] Left: Foot [employer] AR-8720-20P T / / Trim-It Drill Pin, 2 X100 Mm Implanted:Qty: 1 on 07/01/2017 by Renea Landrum DPM at OR [facility] Left: Foot [employer] 12/30/2018 [id number] / / [id number] documented as of this encounter Procedures Procedure Name Priority Date/Time Associated Diagnosis Comments AUDIOMETRIC RESULT 01/16/2024 documented in this encounter Results * AUDIOMETRIC RESULT (01/16/2024) 01/16/2024 [facility] documented in this encounter Visit Diagnoses Diagnosis Bilateral sensorineural [...] and were consensually agreed upon. Care Teams Plant Ecologist Relationship Specialty Start Date End Date Vesta Reyes MD [address] [place] [address] PCP - General 08/16/07 documented as of this encounter
--- OUTSIDE RECORDS SUMMARY | 2024-06-12 07:53 | External Medical Summary | Summary of Care ---
Author Name Unknown Organization [facility] Address [address] [facility] [place] [address] Phone [phone] Care Team Providers Care Balance Staff Inspector Name Role Phone Vesta Reyes MD Primary Care Provider + Encounter Details Date Type Department Care Team (Latest Contact Info) Description 02/13/2024 9:30 AM EDT Office Visit Audiology [facility] [address] [place] [address] Chioma Oshea Au.D. [address] [place] [address] Bilateral sensorineural hearing loss* Allergies Active Allergy Reactions Criticality Noted Date Comments Pollen 11/05/2021 Hasn't been properly diagnosed, but has allergy symptoms worse in summer documented as of this encounter (statuses as of 02/13/2024) Medications Medication Sig Dispensed Refills Start Date [...] (aspirin enteric coated)Indications:C oronary artery disease involving [place] coronary artery of [place] heart without angina pectoris Take 1 tablet [...] Oral Tablet (Crestor)Indications :Coronary artery disease involving [place] coronary artery of [place] heart without angina pectoris,S/P drug eluting coronary [...] 11/07/2023 Active Additional Information Patient taking differently:2 [place] NasalDAILY PRN, Reported on 01/13/2024 Losartan Potassium 25 MG Oral Tablet (Cozaar)Indications: HTN, goal below 140/90 TAKE 1 TABLET BY MOUTH IN THE MORNING 90 Tablet 3 12/29/2023 Active documented as of this encounter (statuses as of 02/13/2024) Active Problems Problem Noted Date Diagnosed Date Prediabetes 11/10/2020 Overview: Per Prediabetes protocol HTN, goal below 140/90 07/06/2019 Dyslipidemia, goal LDL below 70 07/06/2019 Coronary artery disease invo lving [place] coronary artery of [place] heart without angina pectoris 05/29/2017 S/P drug eluting coronary stent placement 2017 History of non-ST elevation myocardial infarctio n (NSTEMI) 05/29/2017 Senile osteoporosis 03/10/2017 Gastroesophageal reflux disease without esophagi tis 03/10/2017 documented as of this encounter (statuses as of 02/13/2024) Resolved Problems Problem Noted Date Diagnosed Date [...] as of this encounter (statuses as of 02/13/2024) Immunizations Name Administration Dates Next Due COVID-19 mRNA, LNP-s, No Pre serve, 2-Dose Series ([employer]) 04/16/2021,07/14/2020,06/09/2020 Covid-19, Mrna, Lnp-s, Pf, B ivalent, 30 Mcg, IM, 12 yrs and above ([employer]) 02/09/2022 Pneumococcal Conjugate Vacc, 13 Valent (Prevnar) [...] Progress Notes * Chioma Oshea Au.D. - 02/13/2024 9:56 AM EDT Hearing Aid Consultation Reason for Visit Donita Brandon was seen today for a hearing aid consultation. She was last tested audiologically in this clinic on 01/16/2024 and was found to have a mild to moderate alteral sensorineural hearing loss. Amplification was briefly discussed and recommended that day. Donita returns today to further discuss hearing aids. Consultation The audiogram was reviewed with Donita. The benefits and limitations of amplification were discussedin detail. The different styles of hearing aids (in-the-ear vs. [id number]-[id number]) were discussed. Monaural vs. binaural use of amplification was discussed and binaural amplification was recommended. The different levels of digital technology and features were explained. All questions were answered. The following hearing aids were ordered: Make: Oticon Model: Intent 2 Style:Mini [employer] Earmold: 8 mm double chawla Retentin: #2 85 Color: chroma beige Confirmation # SO [id number] Plan Donita will return in approximately 3 weeks to be fit with her new hearing aids. She was advised to contact the clinic prior to that time should she have any questions or concerns. Policy for insurance reimbursement was discussed with Donita, and she expressed understanding. She is aware that paymentis due for one hearing aid at the time of the hearing aid fitting. She is also aware that a clearance form must be completed by her physician before she can be fit with the hearing aids. documented in this encounter Plan of Treatment Upcoming Encounters Date Type Department Care Team (Late st Contact Info) Description 02/29/2024 9:40 AM EDT Office Visit General Internal Medicine [facility] [address] [place] [address] Vesta Reyes MD [address] [place] [address] 03/01/2024 11:30 AM EDT Office Visit Audiology [facility] [address] [place] [address] Chioma Oshea Au.D. [address] [place] [address] 05/14/2024 3:00 PM EST Imaging Radiology, [facility] [address] [facility] [place] [address] 07/23/2024 11:00 AM EDT Office Visit Cardiology, [facility] [address] [place] [address] Arnulfo Arias PA-C [address] [place] [address] Health Maintenance Due Date Last Done Comments [...] this encounter Medical Devices Implanted Type Area Intervention Specialist Device Identifier Shelf Expiration Date Model / Serial / Lot Lens Intraoc 21.5 - [id number] - [id number] Implanted:Qty: 1 on 06/01/2016 by Scott Mckee MD at OR [facility] Right: Eye BAUSCH & LOMB 12/30/2020 [id number] / [id number] / [id number] Lens Intraoc 20.0 - [id number] - [id number] Implanted:Qty: 1 on 06/15/2016 by Scott Mckee MD at OR [facility] Left: Eye BAUSCH & LOMB 01/29/2021 [id number] / [id number] / [id number] 2.0 Cannulated Screw Implanted:Qty: 1 on 07/01/2017 by Renea Landrum DPM at OR [facility] Left: Foot [employer] AR-8720-20P T / / Trim-It Drill Pin, 2 X100 Mm Implanted:Qty: 1 on 07/01/2017 by Renea Landrum DPM at OR [facility] Left: Foot [employer] 12/30/2018 AR-[id number] / / [id number] documented as of this encounter Visit Diagnoses [...] and were consensually agreed upon. Care Teams Balance Staff Inspector Relationship Specialty Start Date End Date Vesta Reyes MD [address] [place] [address], [place] [address] PCP - General 08/16/07 documented as of this encounter
--- OUTSIDE RECORDS SUMMARY | 2024-06-12 07:53 | External Medical Summary | Summary of Care ---
Author Name Unknown Organization [facility] Address [address] [place] [address] Phone [phone] Care Team Providers Care Set Staff Fitter Name Role Phone Vesta Reyes MD Primary Care Provider + Encounter Details Date Type Department Care Team (Late st Contact Info) Description 02/09/2024 Orders Only PATIENT PORTAL DO NOT DELETE THIS DEPT USED BY [place] [id number] Allergies Active Allergy Reactions Criticality Noted Date Comments Pollen 11/05/2021 Hasn't been properly diagnosed, but has allergy symptoms worse in summer documented as of this encounter (statuses as of 02/09/2024) Medications Medication Sig Dispensed Refills Start Date [...] (aspirin enteric coated)Indications:C oronary artery disease involving [place] coronary artery of eek heart without angina pectoris Take 1 tablet [...] Oral Tablet (Crestor)Indications :Coronary artery disease involving [place] coronary artery of eek heart without angina pectoris,S/P drug eluting coronary [...] 11/07/2023 Active Additional Information Patient taking differently:2 [place] NasalDAILY PRN, Reported on 01/13/2024 Losartan Potassium 25 MG Oral Tablet (Cozaar)Indications: HTN, goal below 140/90 TAKE 1 TABLET BY MOUTH IN THE MORNING 90 Tablet 3 12/29/2023 Active documented as of this encounter (statuses as of 02/09/2024) Active Problems Problem Noted Date Diagnosed Date Prediabetes 11/10/2020 Overview: Per Prediabetes protocol HTN, goal below 140/90 07/06/2019 Dyslipidemia, goal LDL below 70 07/06/2019 Coronary artery disease invo lving e[place] coronary artery of eek heart without angina pectoris 05/29/2017 S/P drug eluting coronary stent placement 2017 History of non-ST elevation myocardial infarctio n (NSTEMI) 05/29/2017 Senile osteoporosis 03/10/2017 Gastroesophageal reflux disease without esophagi tis 03/10/2017 documented as of this encounter (statuses as of 02/09/2024) Resolved Problems Problem Noted Date Diagnosed Date [...] as of this encounter (statuses as of 02/09/2024) Immunizations Name Administration Dates Next Due COVID-19 mRNA, LNP-s, No Pre serve, 2-Dose Series ([employer]) 04/16/2021,07/14/2020,06/09/2020 Covid-19, Mrna, Lnp-s, Pf, B ivalent, 30 Mcg, IM, 12 yrs and above ([employer]) 02/09/2022 Pneumococcal Conjugate Vacc, 13 Valent [...] Team (Late st Contact Info) Description 02/13/2024 9:30 AM EDT Office Visit Audiology [facility] [address] [facility] [place] [address] Chioma Oshea Au.D. [address] [place] [address] 02/29/2024 9:40 AM EDT Office Visit General Internal Medicine [facility] [address] [place] [address] Vesta Reyes MD [address] [place] [address] 05/14/2024 3:00 PM EST Imaging Radiology, [facility] [address] [facility] [place] [address] 07/23/2024 11:00 AM EDT Office Visit Cardiology, [facility] [address] [place] [address] Arnulfo Arias PA-C [address] [place] [address] Health Maintenance Due Date Last Done Comments [...] this encounter Medical Devices Implanted Type Area Die Holder Device Identifier Shelf Expiration Date Model / Serial / Lot Lens Intraoc 21.5 - [id number] - [id number] Implanted:Qty: 1 on 06/01/2016 by Scott Mckee MD at OR [facility] Right: Eye BAUSCH [employer] LOMB 12/30/2020 [id number] / [id number] / [id number] Lens Intraoc 20.0 - [id number] - [id number] Implanted:Qty: 1 on 06/15/2016 by Scott Mckee MD at OR [facility] Left: Eye BAUSCH & LOMB 01/29/2021 [id number] / [id number] / [id number] 2.0 Cannulated Screw Implanted:Qty: 1 on 07/01/2017 by Renea Landrum DPM at OR [facility] Left: Foot [employer] AR-8720-20P T / / Trim-It Drill Pin, 2 X100 Mm Implanted:Qty: 1 on 07/01/2017 by Renea Landrum DPM at OR [facility] Left: Foot [employer] 12/30/2018 AR-[id number] / / [id number] documented as of this encounter Advance Directives [...] and were consensually agreed upon. Care Teams Set Staff Fitter Relationship Specialty Start Date End Date Vesta Reyes MD 200 [facility] [place] [place] [address] PCP - General 08/16/07 documented as of this encounter
--- OUTSIDE RECORDS SUMMARY | 2024-06-12 07:53 | External Medical Summary | Summary of Care ---
Author Name Unknown Organization [facility] Address [address] [facility] [address] Phone [phone] Care Team Providers Care Printer Slotter Feeder Name Role Phone Vesta Reyes MD Primary Care Provider + Reason for Visit * Reason Onset Date Comments No Show 02/11/[address] [facility] No Show Auto mation Encounter Details Date Type Department Care Team (Late st Contact Info) Description 02/11/2024 Telephone Audiology [facility] [address] [place] [address] Angelo Oshea Au.D. [address] [place] [address] No Show ([facility] No Show Automation) Allergies Active Allergy Reactions Criticality Noted Date Comments Pollen 11/05/2021 Hasn't been properly diagnosed, but has allergy symptoms worse in summer documented as of this encounter (statuses as of 02/11/2024) Medications Medication Sig Dispensed Refills Start Date [...] (aspirin enteric coated)Indications:C oronary artery disease involving [place] coronary artery of [place] heart without angina pectoris Take 1 tablet [...] Oral Tablet (Crestor)Indications :Coronary artery disease involving [place] coronary artery of [place] heart without angina pectoris,S/P drug eluting coronary [...] 11/07/2023 Active Additional Information Patient taking differently:2 [place] NasalDAILY PRN, Reported on 01/13/2024 Losartan Potassium 25 MG Oral Tablet (Cozaar)Indications: HTN, goal below 140/90 TAKE 1 TABLET BY MOUTH IN THE MORNING 90 Tablet 3 12/29/2023 Active documented as of this encounter (statuses as of 02/11/2024) Active Problems Problem Noted Date Diagnosed Date Prediabetes 11/10/2020 Overview: Per Prediabetes protocol HTN, goal below 140/90 07/06/2019 Dyslipidemia, goal LDL below 70 07/06/2019 Coronary artery disease invo lving [place] coronary artery of [place] heart without angina pectoris 05/29/2017 S/P drug eluting coronary stent placement 2017 History of non-ST elevation myocardial infarctio n (NSTEMI) 05/29/2017 Senile osteoporosis 03/10/2017 Gastroesophageal reflux disease without esophagi tis 03/10/2017 documented as of this encounter (statuses as of 02/11/2024) Resolved Problems Problem Noted Date Diagnosed Date [...] as of this encounter (statuses as of 02/11/2024) Immunizations Name Administration Dates Next Due COVID-19 mRNA, LNP-s, No Pre serve, 2-Dose Series ([employer]von[employer]) 04/16/2021,07/14/2020,06/09/2020 Covid-19, Mrna, Lnp-s, Pf, B ivalent, 30 Mcg, IM, 12 yrs and above ([employer]) 02/09/2022 Pneumococcal Conjugate Vacc, 13 Valent (Prevnar) [...] encounter Miscellaneous Notes * Telephone Encounter - Kesha, Maribel Show - 02/11/2024 6:06 AM EDT Dear Donita Brandon, Looks like you missed an appointment with ANGELO OSHEA on 01/31/2024 at 11:00 AM. If you haven't already rescheduled, you have a couple of options: Reschedule in [email or web address] Call us at [phone] Can't make a future appointment? Cancel and let someone else have your spot! It's easy to do via Scandlines or by calling us. Thanks for trusting [facility] with your care. We hope to see you back in our office soon. Sincerely, ANGELO OSHEA documented in this encounter Plan of Treatment Upcoming Encounters Date Type Department Care Team (Late st Contact Info) Description 02/13/2024 9:30 AM EDT Office Visit Audiology [facility] [address] [place] [address] Angelo Oshea Au.D. [address] [place] [address] 02/29/2024 9:40 AM EDT Office Visit General Internal Medicine [facility] [address] [place] [address] Vesta Reyes MD [address] [place] [address] 05/14/2024 3:00 PM EST Imaging Radiology, [facility] [address] [facility] [place] [address] 07/23/2024 11:00 AM EDT Office Visit Cardiology, [facility] [address] [place] [address] Arnulfo Arias PA-C [address] [place] [address] Health Maintenance Due Date Last Done Comments [...] this encounter Medical Devices Implanted Type Area Auditing Coder Device Identifier Shelf Expiration Date Model / Serial / Lot Lens Intraoc 21.5 - [id number] - [id number] Implanted:Qty: 1 on 06/01/2016 by Scott Mckee MD at OR [facility] Right: Eye BAUSCH [employer] LOMB 12/30/2020 [id number] / [id number] / [id number] Lens Intraoc 20.0 - [id number] - [id number] Implanted:Qty: 1 on 06/15/2016 by Scott Mckee MD at OR [facility] Left: Eye BAUSCH & LOMB 01/29/2021 [id number] / [id number] / [id number] 2.0 Cannulated Screw Implanted:Qty: 1 on 07/01/2017 by Renea Landrum DPM at OR [facility] Left: Foot [employer] AR-8720-20P T / / Trim-It Drill Pin, 2 X100 Mm Implanted:Qty: 1 on 07/01/2017 by Renea Landrum DPM at OR [facility] Left: Foot [employer] 12/30/2018 AR-[id number] / / [id number] documented as of this encounter Advance Directives [...] and were consensually agreed upon. Care Teams Printer Slotter Feeder Relationship Specialty Start Date End Date Vesta Reyes MD [address] [place] [address] PCP - General 08/16/07 documented as of this encounter
--- OUTSIDE RECORDS SUMMARY | 2024-06-12 07:53 | External Medical Summary | Summary of Care ---
Author Name Unknown Organization [facility] Address [address] [place] [address] Phone [phone] Care Team Providers Care Concrete Bucket Loader Name Role Phone Vesta Reyes MD Primary Care Provider + Reason for Visit * Reason Comments Follow Up Encounter Details Date Type Department Care Team (Latest Contact Info) Description 02/06/2024 2:00 PM EDT Office Visit Endocrinology [address] [place] [address] Jose Mendoza MD [address] [place] [address] Primary hyperparathyroidism (HCC)*; Age-related osteoporosis without current pathological fracture; S/P removal of parathyroid gland Allergies Active Allergy Reactions Criticality Noted Date Comments Pollen 11/05/2021 Hasn't been properly diagnosed, but has allergy symptoms worse in summer documented as of this encounter (statuses as of 02/06/2024) Medications Medication Sig Dispensed Refills Start Date [...] (aspirin enteric coated)Indications:C oronary artery disease involving [place] coronary artery of [place] heart without angina pectoris Take 1 tablet [...] Oral Tablet (Crestor)Indications :Coronary artery disease involving [place] coronary artery of [place] heart without angina pectoris,S/P drug eluting coronary [...] 11/07/2023 Active Additional Information Patient taking differently:2 [place] NasalDAILY PRN, Reported on 01/13/2024 Losartan Potassium 25 MG Oral Tablet (Cozaar)Indications: HTN, goal below 140/90 TAKE 1 TABLET BY MOUTH IN THE MORNING 90 Tablet 3 12/29/2023 Active documented as of this encounter (statuses as of 02/06/2024) Active Problems Problem Noted Date Diagnosed Date Prediabetes 11/10/2020 Overview: Per Prediabetes protocol HTN, goal below 140/90 07/06/2019 Dyslipidemia, goal LDL below 70 07/06/2019 Coronary artery disease invo lving [place] coronary artery of [place] heart without angina pectoris 05/29/2017 S/P drug eluting coronary stent placement 2017 History of non-ST elevation myocardial infarctio n (NSTEMI) 05/29/2017 Senile osteoporosis 03/10/2017 Gastroesophageal reflux disease without esophagi tis 03/10/2017 documented as of this encounter (statuses as of 02/06/2024) Resolved Problems Problem Noted Date Diagnosed Date [...] as of this encounter (statuses as of 02/06/2024) Immunizations Name Administration Dates Next Due COVID-19 mRNA, LNP-s, No Pre serve, 2-Dose Series ([employer]) 04/16/2021,07/14/2020,06/09/2020 Covid-19, Mrna, Lnp-s, Pf, B ivalent, 30 Mcg, IM, 12 yrs and above ([employer]) 02/09/2022 Pneumococcal Conjugate Vacc, 13 Valent (Prevnar) [...] Progress Notes * Jose Mendoza MD - 02/06/2024 1:24 PM EDT CC [...] paraesophageal soft tissue nodule on series 26, [id number] and series 16, image 54. Both of [...] This chart was completed in part utilizing [employer] Speech Voice Recognition Software. Grammatical errors, random [...] in case of any questions or concerns. Jose Mendoza MD Endocrinology Physician [address], [place] [address] CC:Vesta Reyes MD * Iraida Dash CMA [...] 02/13/2024 9:30 AM EDT Office Visit Audiology [facility] [address] [address] Chioma Oshea Au[address]D. [address] [phone] 02/29/2024 9:40 AM EDT Office Visit General Internal Medicine [facility] [address] [facility] [address] [place] [address] Vesta Reyes MD [address] [facility] [address] [facility] [place] [address] 05/14/2024 3:00 PM EST Imaging Radiology, [facility] [address] [facility] [place] [address] 07/23/2024 11:00 AM EDT Office Visit Cardiology, [facility] [address] [address] Arnulfo Arias PA-C [address] [id number] Scheduled Orders Name Type Priority Associated Diagnoses Orde r Schedule PTH Lab Routine Primary hyperparathyroidism (HCC) Expected: 02/07/2024 (Approximate), Expires: 02/05/2025 BASIC METABOLIC PANEL Lab Routine Primary hyperparathyroidism (HCC) Expected: 02/07/2024 (Approximate), Expires: 02/05/2025 TSH WITH FREE T4 IF INDICATED Lab Routine S/P removal of parathyroid gland Expected: 02/07/2024 (Approximate), Expires: 03/08/2025 25-HYDROXY VITAMIN D Lab Routine Age-related osteoporosis without current pathological fracture Expected: 02/07/2024 (Approximate), Expires: 02/05/2025 ALBUMIN Lab Routine Primary hyperparathyroidism (HCC) Expected: 02/07/2024 (Approximate), Expires: 02/05/2025 Health Maintenance Due Date Last Done Comments [...] this encounter Medical Devices Implanted Type Area Shock Absorber Installer Device Identifier Shelf Expiration Date Model / Serial / Lot Lens Intraoc 21.5 - [id number] - [id number] Implanted:Qty: 1 on 06/01/2016 by Scott Mckee MD at OR [facility] Right: Eye [employer] 12/30/2020 [id number] / [id number] / [id number] Lens Intraoc 20.0 - [id number] - [id number] Implanted:Qty: 1 on 06/15/2016 by Scott Mckee MD at OR [facility] Left: Eye [employer]OMB 01/29/2021 [id number] / [id number] / [id number] 2.0 Cannulated Screw Implanted:Qty: 1 on 07/01/2017 by Renea Landrum DPM at OR [facility] Left: Foot [employer] AR-8720-20P T / / Trim-It Drill Pin, 2 X100 Mm Implanted:Qty: 1 on 07/01/2017 by Renea Landrum DPM at OR [facility] Left: Foot [employer] 12/30/2018 [id number] / / [id number] documented as of this encounter Visit Diagnoses [...] and were consensually agreed upon. Care Teams Concrete Bucket Loader Relationship Specialty Start Date End Date Vesta Reyes MD [address] [place] [address], [place] [address] PCP - General 08/16/07 documented as of this encounter"
--- OUTSIDE RECORDS SUMMARY | 2024-06-12 07:53 | External Medical Summary | Summary of Care ---
Author Name Unknown Organization [facility] Address [address] [address] Phone [phone] Care Team Providers Care Boat Patcher Plastic Name Role Phone Vesta Reyes MD Primary Care Provider + Reason for Visit * Reason Onset Date Comments Advice 01/16/2024 Encounter Details Date Type Department Care Team (Late st Contact Info) Description 01/16/2024 Telephone Otolaryngology [facility] [address] [place] [address] Chioma Oshea [address] [place] [address] Advice Allergies Active Allergy Reactions Criticality Noted Date Comments Pollen 11/05/2021 Hasn't been properly diagnosed, but has allergy symptoms worse in summer documented as of this encounter (statuses as of 01/17/2024) Medications Medication Sig Dispensed Refills Start Date [...] (aspirin enteric coated)Indications:C oronary artery disease involving [place] coronary artery of [place] heart without angina pectoris Take 1 tablet [...] Oral Tablet (Crestor)Indications :Coronary artery disease involving [place] coronary artery of [place] heart without angina pectoris,S/P drug eluting coronary [...] 11/07/2023 Active Additional Information Patient taking differently:2 [place] NasalDAILY PRN, Reported on 01/13/2024 Losartan Potassium [...] as of this encounter (statuses as of 01/17/2024) Active Problems Problem Noted Date Diagnosed Date Prediabetes 11/10/2020 Overview: Per Prediabetes protocol HTN, goal below 140/90 07/06/2019 Dyslipidemia, goal LDL below 70 07/06/2019 Coronary artery disease invo lving [place] coronary artery of [place] heart without angina pectoris 05/29/2017 S/P drug eluting coronary stent placement 2017 History of non-ST elevation myocardial infarctio n (NSTEMI) 05/29/2017 Senile osteoporosis 03/10/2017 Gastroesophageal reflux disease without esophagi tis 03/10/2017 documented as of this encounter (statuses as of 01/17/2024) Resolved Problems Problem Noted Date Diagnosed Date [...] as of this encounter (statuses as of 01/17/2024) Immunizations Name Administration Dates Next Due COVID-19 mRNA, LNP-s, No Pre serve, 2-Dose Series ([employer]) 04/16/2021,07/14/2020,06/09/2020 Covid-19, Mrna, Lnp-s, Pf, B ivalent, [...] encounter Miscellaneous Notes * Telephone Encounter - Shannon Bello LPN - 01/16/2024 4:36 PM EDT Patient advised her husbands hearing aids are Phonak documented in this encounter Plan of Treatment Upcoming Encounters Date Type Department Care Team (Late st Contact Info) Description 01/31/2024 11:00 AM EDT Office Visit Audiology [facility] [address] [address] Chioma Oshea Au.D. [address] [address] 02/06/2024 2:00 PM EDT Office Visit Endocrinology [address] [phone] Jose Mendoza MD [address] [facility] [place] [id number] 02/29/2024 9:40 AM EDT Office Visit General Internal Medicine [facility] [address] [place] [address] Vesta Reyes MD [address] [place] [address] 05/14/2024 3:00 PM EST Imaging Radiology, [facility] [address] [facility] [address] 07/23/2024 11:00 AM EDT Office Visit Cardiology, [facility] [address] [address] Arnulfo Arias PA-C [address] [place] [address] Health Maintenance Due Date Last Done Comments [...] this encounter Medical Devices Implanted Type Area Bioanalyst Device Identifier Shelf Expiration Date Model / Serial / Lot Lens Intraoc 21.5 - [id number] - [id number] Implanted:Qty: 1 on 06/01/2016 by Scott Mckee MD at OR [facility] Right: Eye [employer] 12/30/2020 [id number] / [id number] / [id number] Lens Intraoc 20.0 - [id number] - [id number] Implanted:Qty: 1 on 06/15/2016 by Scott Mckee MD at OR [facility] Left: Eye [employer]OM[employer] 01/29/2021 [id number] / [id number] / [id number] 2.0 Cannulated Screw Implanted:Qty: 1 on 07/01/2017 by Renea Landrum DPM at OR [facility] Left: Foot [employer] AR-8720-20P T / / Trim-It Drill Pin, 2 X100 Mm Implanted:Qty: 1 on 07/01/2017 by Renea Landrum DPM at OR [facility] Left: Foot [employer] 12/30/2018 [id number] / / [id number] documented as of this encounter Advance Directives [...] and were consensually agreed upon. Care Teams Boat Patcher Plastic Relationship Specialty Start Date End Date Vesta Reyes MD [address] [place] [address] PCP - General 08/16/07 documented as of this encounter
--- OUTSIDE RECORDS SUMMARY | 2024-06-12 07:53 | External Medical Summary | Summary of Care ---
Author Name Unknown Organization [facility] [address] [facility] [facility] [address] Phone [phone] Care Team Providers Care Special Events Coordinator Name Role Phone Vesta Reyes MD Primary Care Provider + Reason for Visit * Reason Comments Follow Up Encounter Details Date Type Department Care Team (Late st Contact Info) Description 01/13/2024 11:00 AM EDT Office Visit Cardiology, [facility] [address] [place] [address] Arnulfo Arias PA-C [address] [facility] [place] [address] Coronary artery disease involving [place] coronary artery of [place] heart without angina pectoris*; S/P drug eluting coronary stent placement; Dyslipidemia, goal LDL below 70; History of non-ST elevation myocardial infarction (NSTEMI); HTN, goal below 140/90 Allergies Active Allergy Reactions Criticality Noted Date Comments Pollen 11/05/2021 Hasn't been properly diagnosed, but has allergy symptoms worse in summer documented as of this encounter (statuses as of 01/14/2024) Medications Medication Sig Dispensed Refills Start Date [...] (aspirin enteric coated)Indications: Coronary artery disease involving [place] coronary artery of [place] heart without angina pectoris Take 1 tablet by mouth once daily 90 Tablet 2 05/23/2023 Active Zoster Vac Recomb Adjuvanted 50 MCG/0.5ML Intramuscular Suspension Reconstituted (Shingrix)Indicatio ns:Need for shingles vaccine Inject 0.5 mL into a large muscle now and repeat dose in 60 to 180 days 1 Each 1 08/25/2023 Active Famotidine 20 MG Oral Tablet (Pepcid)Indications :Hiatal hernia TAKE 1 TABLET BY MOUTH AT BEDTIME 30 Tablet 5 08/29/2023 Active Rosuvastatin Calcium 40 MG Oral Tablet (Crestor)Indication s:Coronary artery disease involving [place] coronary artery of [place] heart without angina pectoris,S/P drug eluting coronary [...] 11/07/2023 Active Additional Information Patient taking differently:2 [place] NasalDAILY PRN, Reported on 01/13/2024 Losartan Potassium 25 MG Oral Tablet (Cozaar)Indications :HTN, goal below 140/90 TAKE 1 TABLET BY MOUTH IN THE MORNING 90 Tablet 3 12/29/2023 Active Loteprednol Etabonate 0.5 % Ophthalmic Suspension (Lotemax) Instill 1 Drop into both eyes in the morning and 1 Drop at noon and 1 Drop in the evening and 1 Drop before bedtime. 01/10/2024 4 Active Zinc Acetate 50 MG Oral CapsuleIndications: Zinc deficiency 1 cap daily 11/12/2023 4 Discontinue d(Patient preference/ discontinua tion) documented as of this encounter (statuses as of 01/14/2024) Active Problems Problem Noted Date Diagnosed Date Prediabetes 11/10/2020 Overview: Per Prediabetes protocol HTN, goal below 140/90 07/06/2019 Dyslipidemia, goal LDL below 70 07/06/2019 Coronary artery disease invo lving [place] coronary artery of [place] heart without angina pectoris 05/29/2017 S/P drug eluting coronary stent placement 2017 History of non-ST elevation myocardial infarctio n (NSTEMI) 05/29/2017 Senile osteoporosis 03/10/2017 Gastroesophageal reflux disease without esophagi tis 03/10/2017 documented as of this encounter (statuses as of 01/14/2024) Resolved Problems Problem Noted Date Diagnosed Date [...] as of this encounter (statuses as of 01/14/2024) Immunizations Name Administration Dates Next Due COVID-19 mRNA, LNP-s, No Pre serve, 2-Dose Series ([employer]) 04/16/2021,07/14/2020,06/09/2020 Covid-19, Mrna, Lnp-s, Pf, B [...] Sign Reading Time Taken Comments Blood Pressure 122/60 01/13/2024 11:11 AM EDT Pulse 80 01/13/2024 11:11 AM EDT Temperature - - Respiratory Rate 12 01/13/2024 11:11 AM EDT Oxygen Saturation - - Inhaled Oxygen Concentration - - Weight 72.8 kg (160 lb 8 oz) 01/13/2024 11:11 AM EDT Height - - Body Mass Index 29.84 11/07/2023 12:53 PM EDT documented in this encounter Progress Notes * Arnulfo Arias PA-C - 01/13/2024 11:00 AM EDT History of Present Illness: Donita Brandon is a very pleasant 83 year old female here today for routine cardiology follow-up evaluation. Last evaluated in July 2023, preoperative consultation. Losartan added for additional blood pressure control. Dobutamine stress echocardiography was nonischemic. Status post August 01, 2023 parathyroidectomy at [facility]. Hospitalized at [facility] in August 2023 with acute bronchitis, enterovirus/rhinovirus. One of 4 blood cultures with Gram-positive cocci in clusters, Staphylococcus sacchorolyticus, suspected contamination. Inactive. Weight gain noted, up 13 pounds since June. Does the housework, up and down basement steps, once in a while taking the dog for a while around the horseshoe. Notes being more winded with activity, attributed to the weigh gain, not concerned. Main issue is chronic pain in the feet, attributed to arthritis, discouraging her from walking, also with chronic lower back pain. Notes sleeping elevated due to the hiatal hernia. No PND. No fluid retention. No chest pain or discomfort. No tachypalpitations. No lightheadedness, dizziness, near syncope, or syncope. No epistaxis, hemoptysis, melena, hematochezia, or hematuria. Patient Active Problem List Diagnosis Senile osteoporosis Gastroesophageal reflux disease without esophagitis Coronary artery disease involving [place] coronary artery of [place] heart without angina pectoris S/P drug eluting coronary stent placement History of non-ST elevation myocardial infarction (NSTEMI) HTN, goal below 140/90 Dyslipidemia, goal LDL below 70 Prediabetes Past Medical History: Diagnosis Date CAD (coronary artery disease) Diaphragmatic hernia Esophageal reflux 03/16/07 Kidney stone [place] (myocardial infarction) ([facility]) 01/2017 Other osteoporosis 01/31/2002 Other [...] performed by Renea Landrum DPM at OR [facility] BUNION CORRECTED WITH PHALANX OSTEOTOMY Left 07/01/2017 CORRECTION HALLUX VALGUS, PROXIMAL PHALANX OSTEOTOMY performed by Renea Landrum DPM at OR [facility] DELIVERY 08/03/1984 x 2 DELIVERY 11/03/1982 emergency c section STILLBORN COLONOSCOPY 01/2004 polpyp, repeat in 3 years COLONOSCOPY W/ LESION REMOVAL, SNARE 11/18/2006 repeat 3yrs adenomatous tissue COLONOSCOPY W/ LESION REMOVAL, SNARE 11/24/2009 path shows adenomatous tissue repeat in 3 years- diverticulosis entire colon COLONOSCOPY, DIAGNOSTIC (RECTUM) 12/11/2012 COLONOSCOPY FLEXIBLE PROXIMAL DIAGNOSTIC performed by Sarmad Vasquez MD at ENDOSCOPY [facility], hyperplastic polyps repeat colonoscopy in 5 years COLONOSCOPY, DIAGNOSTIC (RECTUM) 08/07/2013 COLONOSCOPY FLEXIBLE PROXIMAL DIAGNOSTIC performed by Nargis Collier DO at ENDOSCOPY [facility] COLONOSCOPY, DIAGNOSTIC (RECTUM) 03/15/2018 normal bx, diverticulosis, fair prep, repeat 3 yrs/COLONOSCOPY FLEXIBLE PROXIMAL DIAGNOSTIC performed by Nargis Collier DO at ENDOSCOPY [facility] COLONOSCOPY, DIAGNOSTIC (RECTUM) 11/11/2021 benign adenomatous & serrated adenomatous polyp / COLONOSCOPY FLEXIBLE PROXIMAL DIAGNOSTIC performed by Alejandra Pereira MD at ENDOSCOPY [facility] CYSTOSCOPY 02/02/2005 ansong EGD, FLEXIBLE, DIAGNOSTIC 08/07/2013 ESOPHAGOGASTRODUODENOSCOPY (EGD), FLEXIBLE, TRANSORAL, DIAGNOSTIC performed by Nargis Collier DO at ENDOSCOPY [facility] EGD, FLEXIBLE, DIAGNOSTIC 09/30/2017 mild reactive inflammation, hiatal hernia, esophageal erosions/[facility] EGD, FLEXIBLE, W/BIOPSY 03/16/2007 hiatus hernia gerd EGD, FLEXIBLE, W/BIOPSY 02/07/2009 biopsies from esophagus--no inflammation--very mild irritation of the stomach without evidence of H.Pylori EXPLORE PARATHYROID GLANDS N/A 08/01/2023 PARATHYROIDECTOMY performed by Shalini Berger MD at [facility] INFORMATION 03/02/2017 cardiac stent x1 LAPAROSCOPY; CHOLECYSTECTOMY 08/29/2009 [facility] - Dr. Huang - cholecystectomy lap [...] performed by Scott Mckee MD at OR [facility] REMOVE CATARACT, INSERT LENS PROSTH Left 06/15/2016 leftEXTRACAPSULAR CATARACT REMOVAL WITH INTRAOCULAR LENS performed by Scott Mckee MD at[facility] REPAIR OF HAMMERTOE, ONE TOE Left 07/01/2017 CORRECTION HAMMERTOE performed by Renea Landrum DPM at OR [facility] TOTAL HYSTERECTOMY 11/1984 NOEMI (Total Abdominal Hysterectomy) Family History Problem Relation Name Age of Onset Cancer Sister 53 breast, [...] 1 Capsule by mouth in the morning. Nitroglycerin 0.4 MG Sublingual Tablet Sublingual (Nitrostat) Place 1 Tablet under the tongue every5 minutes as needed for Pain, Chest. 25 Tablet 5 Loratadine 10 MG Oral Capsule Take 1 Capsule by mouth as needed for Rhinitis. Pantoprazole Sodium 40 MG Oral Tablet Delayed [...] by mouth once daily 90 Tablet 3 Fluticasone Propionate 50 MCG/ACT Nasal Suspension (Flonase) Administer 2 Sprays into nostril in the morning. (Patient taking differently: Administer 2 Sprays into nostril daily as needed.) 48 g 0 Losartan Potassium 25 MG Oral Tablet (Cozaar) TAKE 1 TABLET BY MOUTH IN THE MORNING 90 Tablet 3 Loteprednol Etabonate 0.5 % Ophthalmic Suspension (Lotemax) Instill 1 Drop into both eyes in the morning and 1 Drop at noon and 1 Drop in the evening and 1 Drop before bedtime. Zoster Vac Recomb Adjuvanted 50 MCG/0.5ML Intramuscular Suspension Reconstituted (Shingrix) Inject 0.5 mL into a large muscle now and repeat dose in 60 to 180 days 1 Each 1 Albuterol Sulfate HFA 108 (90 Base) MCG/ACT Inhalation Aerosol Solution Q6H (Patient not taking: Reported on 11/07/2023) Budesonide-Formoterol Fumarate 80-4.5 MCG/ACT Inhalation Aerosol (Symbicort) Inhale 2 Puffs by mouth in the morning and 2 Puffs before bedtime. (Patient not taking: Reported on 11/07/2023) 10.2 g 1 No current facility-administered medications for this visit. OBJECTIVE/PHYSICAL EXAMINATION: BP 122/60 (BP Site: Left Arm, BP Position: Sitting, BP Cuff Size: Large) | Pulse 80 | Resp 12 | Wt 72.8 kg (160 lb 8 oz) | BMI 29.84 kg/m | BSA 1.78 m General: A&Ox3. NAD. HENT: Normocephalic. Atraumatic. Eyes: PER. Conjunctiva pink, sclera clear. Neck: No carotid bruits. No JVD. Heart: RRR, 70 bpm. Soft systolic murmur. No diastolic murmur. Lungs: Clear to auscultation. Abdomen: +BS. Soft. Nontender. No masses or organomegaly. Extremities: Lymphedematous changes. No edema. No clubbing. No cyanosis. Limited neurological examination is without focal deficits. Pulses: radial=2/4, posterior tibial=2/4. Data: March 16, 2023 TTE Interpretation Summary (as [...] of 01/19/2023, there is no significant change July 11, 2023 DSE Interpretation Summary (as per Dr. Nelson): The stress echo is negative for inducible ischemia. There was an adequate. appropriate heart rate response dobutamine/atropine stress protocol achieving greater than 100% age predicted maximum heart rate. Blood pressure response was normal. No symptoms were noted.The stress EKG response showed no evidence of ischemia. The left ventricular wall motion is normal. The left ventricular wall motion with stress is normal. The left ventricular ejection fraction increases normally with stress. The left ventricular systolic function is normal. The qualitative LV ejection fraction is 60-64% (normal). The LV wall thickness is moderately incr eased (concentric). Mild aortic valve sclerosis is present. Otherwise normal valvular structures and function ASSESSMENT AND RECOMMENDATIONS/PLAN: ASCVD. Family history of premature coronary artery disease (Father [facility] 40's). History of NSTEMI on 03/02/17, status post drug-eluting stent to the LAD. Moderate residual ostial right coronary artery stenosis. Preserved left ventricular systolic function No new or worsening symptoms Continue beta-vickie, ASA and statin Dyslipidemia. LDL 32 mg/dL on February 09, 2023. Continue rosuvastatin 40 mg/day Hypertension, well controlled following the addition of losartan at that evaluation. Symptomatic iron deficiency anemia. [place] to be secondary to a large hiatal hernia with GI recommendations at that time to use daily PPI, oral iron supplementation, and monitor her CBC and iron studies. GERD. Esophagitis. Nonbleeding esophageal erosion in the distal esophagus. Hiatal hernia. Gastritis. Diverticulosis. Polyps. Internal hemorrhoids. Prediabetes. Followed by PCP Routine cardiology follow-up in 6 months or as needed. ER with emergencies. Arnulfo Arias PA-C Department of Cardiology I spent a total of 30-39 minutes [...] This chart was completed in part utilizing eOriginal Speech Voice Recognition Software. Grammatical errors, random word insertions, prounoun errors, and incomplete sentences are an occasional consequence of this system due to software l imitations, ambient noise, and hardware issues. Any formal questions or concerns about the content,text, or information contained within the body of this dictation should be directly addressed to the provider for clarification. documented in this encounter Nursing Notes * Larissa Leos CMA - 01/13/2024 11:10 AM EDT Examination Room: 2 Name: Donita Brandon Date of : (1940). Reason for Visit: 8M f/u Interim Hospitalization(s): none Problems/Concerns: Leg weakness as prior Chest Pain/SOB: Denies CP. Occasional gets winded with stairs, inclines [facility] Discussed: No [facility] is a way you can [...] Team (Late st Contact Info) Description 01/16/2024 2:00 PM EDT Office Visit Audiology [facility] [address] [place] [address] [address]se[address] [place] [address] 02/06/2024 2:00 PM EDT Office Visit Endocrinology [address] [place] [place] [phone] Jose Mendoza MD [address] [facility] [place] [id number] 02/29/2024 9:40 AM EDT Office Visit General Internal Medicine [facility] [address] [facility] [place] [address] Vesta Reyes MD 200 [facility] [place] [address] 05/14/2024 3:00 PM EST Imaging Radiology, [facility] [address] [facility] [place] [address] 07/23/2024 11:00 AM EDT Office Visit Cardiology, [facility] [address] [place] [address] Arnulfo Arias PA-C [address] [place] [address] Health Maintenance Due Date Last Done Comments [...] this encounter Medical Devices Implanted Type [employer] Teacher Device Identifier Shelf Expiration Date Model / Serial / Lot Lens Intraoc 21.5 - [id number] - [id number] Implanted:Qty: 1 on 06/01/2016 by Scott Mckee MD at OR [facility] Right: Eye [employer] 12/30/2020 [id number] / [id number] / [id number] Lens Intraoc 20.0 - [id number] - [id number] Implanted:Qty: 1 on 06/15/2016 by Scott Mckee MD at OR [facility] Left: Eye [employer] LOMB 01/29/2021 [id number] / [id number] / [id number] 2.0 Cannulated Screw Implanted:Qty: 1 on 07/01/2017 by Renea Landrum DPM at OR [facility] Left: Foot [employer] AR-8720-20P T / / Trim-It Drill Pin, 2 X100 Mm Implanted:Qty: 1 on 07/01/2017 by Renea Landrum DPM at OR [facility] Left: Foot [employer] 12/30/2018 [id number] / / [id number] documented as of this encounter Visit Diagnoses Diagnosis Coronary artery disease involving [place] coronary artery of [place] heart without angina pectoris- Primary S/P drug eluting coronary stent placement Postsurgical percutaneous transluminal coronary angioplasty status Dyslipidemia, goal LDL below 70 Other and unspecified hyperlipidemia History of non-ST elevation myocardial infarction (NSTEMI) Old myocardial infarction HTN, goal below 140/90 Unspecified essential hypertension documented in this encounter Advance Directives * [...] and were consensually agreed upon. Care Teams Special Events Coordinator Relationship Specialty Start Date End Date Vesta Reyes MD [address] [place] [address], [place] [address] PCP - General 08/16/07 documented as of this encounter"
--- OUTSIDE RECORDS SUMMARY | 2024-06-12 07:54 | External Medical Summary | Summary of Care ---
Author Name Unknown Organization [facility] Address [address] [place] [address] Phone [phone] Care Team Providers Care Nail Tech Name Role Phone Vesta Reyes MD Primary Care Provider + Encounter Details Date Type Department Care Team (Late st Contact Info) Description 08/29/2023 Result Scan Unspecified Department <No scans attached> Allergies Active Allergy Reactions Criticality Noted Date Comments Pollen 11/05/2021 Hasn't been properly diagnosed, but has allergy symptoms worse in summer documented as of this encounter (statuses as of 12/21/2023) Medications Medication Sig Dispensed Refills Start Date End Date Status VITAMIN D 1000 UNIT PO CAPS 1 capsule daily 01/25/2011 Active B-12 1000 MCG PO CAPS one daily Act david Ascorbic Acid 500 MG CAPS Take 1 Cap by mouth 2 times a day. 09/27/2014 Active Nitroglycerin 0.4 MG Sublingual Tablet Sublingual (Nitrostat) Place 1 Tablet under the tongue every 5 minutes as needed for Pain, Chest. 25 Tablet 5 04/22/2022 Active Loratadine 10 MG Oral Capsule Take 1 Capsule by mouth as needed for Rhinitis. Active Pantoprazole Sodium 40 MG Oral Tablet Delayed Release (Protonix)Indications: Gastritis, presence of bleeding unspecified, unspecified chronicity, unspecified gastritis type Take 1 tablet by mouth once daily 90 Tablet 3 05/16/2023 Active EQ Aspirin Adult Low Dose 81 MG Oral Tablet Delayed Release (aspirin enteric coated)Indications:Cor onary artery disease involving [place] coronary artery of [place] heart without angina pectoris Take 1 tablet by mouth once daily 90 Tablet 2 05/23/2023 Active Losartan Potassium 25 MG Oral Tablet (Cozaar) Take 1 Tablet by mouth in the morning. 31 Tablet 5 07/06/2023 Active Zoster Vac Recomb Adjuvanted 50 MCG/0.5ML Intramuscular Suspension Reconstituted (Shingrix)Indications: Need for shingles vaccine Inject 0.5 mL into a large muscle now and repeat dose in 60 to 180 days 1 Each 1 08/25/2023 Active Famotidine 20 MG Oral Tablet (Pepcid)Indications:Hi atal hernia TAKE 1 TABLET BY MOUTH AT BEDTIME 30 Tablet 5 08/29/2023 Active Rosuvastatin Calcium 40 MG Oral Tablet (Crestor)Indications:C oronary artery disease involving [place] coronary artery of [place] heart without angina pectoris,S/P drug eluting coronary stent placement,History of non-ST elevation myocardial infarction (NSTEMI) Take 1 tablet by mouth once daily 90 Tablet 3 08/29/2023 Active documented as of this encounter (statuses as of 12/21/2023) Active Problems Problem Noted Date Diagnosed Date Prediabetes 11/10/2020 Overview: Per Prediabetes protocol HTN, goal below 140/90 07/06/2019 Dyslipidemia, goal LDL below 70 07/06/2019 Coronary artery disease invo lving [place] coronary artery of [place] heart without angina pectoris 05/29/2017 S/P drug eluting coronary stent placement 2017 History of non-ST elevation myocardial infarctio n (NSTEMI) 05/29/2017 Senile osteoporosis 03/10/2017 Gastroesophageal reflux disease without esophagi tis 03/10/2017 documented as of this encounter (statuses as of 12/21/2023) Resolved Problems Problem Noted Date Diagnosed Date [...] as of this encounter (statuses as of 12/21/2023) Immunizations Name Administration Dates Next Due COVID-19 [...] 65+ yrs 01/04/2019 TD, Preservative Free 03/10/2017 TDAP, Age [...] 01/13/2024 11:00 AM EDT Office Visit Cardiology, [facility] [address] [facility] [place] [address] Arnulfo Arias PA-C [address] [facility] [place] [address] 01/16/2024 2:00 PM EDT Office Visit Audiology [facility] [address] [facility] [place] [address] Chioma Oshea Au.D. 132 [facility] [place] [address] 02/06/2024 2:00 PM EDT Office Visit Endocrinology [address] [place] [address] [place] [phone] Jose Mendoza MD [address] [facility] [place] [address] 02/29/2024 9:40 AM EDT Office [facility] [address] [place] [address] Vesta Reyes MD [address] [place] [address] 05/14/2024 3:00 PM EST Imaging Radiology, [facility] [address] [place] [address] Health Maintenance Due Date Last Done Comments Zoster Vaccines (2 of 3) 09/16/2011 07/22/2011 Adult Wellness Visit 05/17/2015 05/17/2014 COVID-19 Vaccine ( season) 2022 02/09/2022, 04/16/2021, 07/14/2020, Additional history exists Influenza [...] this encounter Medical Devices Implanted Type Area Industrial Security Analyst Device Identifier Shelf Expiration Date Model / Serial / Lot Lens Intraoc 21.5 - [id number] - [id number] Implanted:Qty: 1 on 06/01/2016 by Scott Mckee MD at OR [facility] Right: Eye [employer]OM[employer] 12/30/2020 [id number] / [id number] / [id number] Lens Intraoc 20.0 - [id number] - [id number] Implanted:Qty: 1 on 06/15/2016 by Scott Mckee MD at OR [facility] Left: Eye [employer] LOMB 01/29/2021 [id number] / [id number] / [id number] 2.0 Cannulated Screw Implanted:Qty: 1 on 07/01/2017 by Renea Landrum DPM at OR [facility] Left: Foot [employer] AR-8720-20P T / / Trim-It Drill Pin, 2 X100 Mm Implanted:Qty: 1 on 07/01/2017 by Renea Landrum DPM at OR [facility] Left: Foot [employer] 12/30/2018 [id number] / / [id number] documented as of this encounter Procedures Procedure Name Priority Date/Time Associated Diagnosis Comments OUTSIDE LAB RESULTS 08/29/2023 documented in this encounter Results * OUTSIDE LAB RESULTS (08/29/2023) 08/29/2023 No Physician Data Unknown LABORATORY documented in this encounter Advance Directives * [...] and were consensually agreed upon. Care Teams Nail Tech Relationship Specialty Start Date End Date Vesta Reyes MD [address] [place] [address] PCP - General 08/16/07 documented as of this encounter
--- OUTSIDE RECORDS SUMMARY | 2024-06-12 07:54 | External Medical Summary | Summary of Care ---
Author Name Unknown Organization [facility] Address [address] [place] [address] Phone [phone] Care Team Providers Care Information Systems Director Name Role Phone Vesta Reyes MD Primary Care Provider + Reason for Visit * Reason Comments eRx-Medication Refill Encounter Details Date Type Department Care Team (Late st Contact Info) Description 12/29/2023 Refill Cardiology, [facility] [address] [place] [address] Pieter Ely, PALudivinaC [address] [facility] [address] HTN, goal below 140/90* Allergies Active Allergy Reactions Criticality Noted Date Comments Pollen 11/05/2021 Hasn't been properly diagnosed, but has allergy symptoms worse in summer documented as of this encounter (statuses as of 12/29/2023) Medications Medication Sig Dispensed Refills Start Date [...] (aspirin enteric coated)Indications: Coronary artery disease involving [place] coronary [...] Oral Tablet (Crestor)Indication s:Coronary artery disease involving [place] coronary artery [...] in the morning. 48 g 11/07/2023 Active Zinc Acetate 50 MG Oral CapsuleIndications: Zinc deficiency 1 cap daily 11/12/2023 Active Losartan Potassium 25 MG Oral Tablet (Cozaar)Indications :HTN, goal below 140/90 TAKE 1 TABLET BY MOUTH IN THE MORNING 90 Tablet 3 12/29/2023 Active Losartan Potassium 25 MG Oral Tablet (Cozaar) Take 1 Tablet by mouth in the morning. 31 Tablet 5 07/06/2023 4 Discontinue d(Refill) documented as of this encounter (statuses as of 12/29/2023) Active Problems Problem Noted Date Diagnosed Date [...] as of this encounter (statuses as of 12/29/2023) Resolved Problems Problem Noted Date Diagnosed Date [...] as of this encounter (statuses as of 12/29/2023) Immunizations Name Administration Dates Next Due COVID-19 mRNA, LNP-s, No Pre serve, 2-Dose Series (Sweeten) 04/16/2021,07/14/2020,06/09/2020 Covid-19, Mrna, Lnp-s, Pf, B ivalent, [...] Telephone Encounter - Pieter Ely PA-C - 12/29/2023 11:56 AM EDTSigned Prescriptions: Disp Refills Losartan Potassium 25 MG Oral Tablet (Coza*90 Tab*3 Sig: TAKE 1 TABLET BY MOUTH IN THE MORNING Authorizing Provider: PIETER ELY * Telephone Encounter - Billie Gomez CMA - 12/29/2023 10:39 AM EDTPending Prescriptions: Disp Refills Losartan Potassium 25 MG Oral Tablet (Coza*90 Tab*3 Sig: TAKE 1 TABLET BY MOUTH IN THE MORNING * Telephone Encounter - Billie Gomez CMA - 12/29/2023 10:38 AM EDT Did you pend patient's preferred pharmacy and medication before forwarding?yes Pharmacy: [facility] [id number] Pending Prescriptions: Disp Refills Losartan Potassium 25 MG Oral Tablet (Coz*90 Tab*3 Sig: TAKE 1 TABLET BY MOUTH IN THE MORNING Last Visit: 07/06/2023 (in office), Visit date not found (telemedicine) Next Visit: 01/13/2024 If no future appointments scheduled, and last appointment is greater than a year ago, please schedule patient for a follow-up appointment Last date the medication was ordered: 07-06-2023 Is this request for a controlled substance?No [...] 11:05 AM TSH 1.39 09/12/2019 09:56 AM LDL 32 02/09/2023 11:05 AM LDL 04/17/2020 02:46 PM Uninterpretable, recommend direct LDL cholesterol testing. LDLCALC 83 03/03/2017 12:00 AM ALT 19 02/09/2023 11:05 AM ALT 21 04/17/2020 02:46 PM HGBA1C 6.1 (H) 02/09/2023 11:05 AM HGBA1C 6.1 (H) 04/17/2020 02:46 PM documented in this encounter Plan of Treatment Upcoming Encounters Date Type Department Care Team (Late st Contact Info) Description 01/13/2024 11:00 AM EDT Office Visit Cardiology, [facility] [address] [address] Pieter Ely PA-C [address] [place] [address] 01/16/2024 2:00 PM EDT Office Visit Audiology [facility] [address] [address] Chioma Oshea Au.D. [address] [place] [address] 02/06/2024 2:00 PM EDT Office Visit Endocrinology [address] [place] [phone] Jose Mendoza MD [address] [place] [address] 02/29/2024 9:40 AM EDT Office Visit General Internal Medicine [facility] [address] [facility] [place] [address] Vesta Reyes MD [address] [facility] [place] [address] 05/14/2024 3:00 PM EST Imaging Radiology, [facility] [address] [facility] [place] [address] Health Maintenance Due Date Last Done Comments [...] this encounter Medical Devices Implanted Type Area Tractor Mechanic Device Identifier Shelf Expiration Date Model / Serial / Lot Lens Intraoc 21.5 - [id number] - [id number] Implanted:Qty: 1 on 06/01/2016 by Scott Mckee MD at OR [facility] Right: Eye [employer] 12/30/2020 [id number] / [id number] / [id number] Lens Intraoc 20.0 - [id number] - [id number] Implanted:Qty: 1 on 06/15/2016 by Scott Mckee MD at OR [facility] Left: Eye [employer] 01/29/2021 [id number] / [id number] / [id number] 2.0 Cannulated Screw Implanted:Qty: 1 on 07/01/2017 by Renea Landrum DPM at OR [facility] Left: Foot [employer] [id number] T / / Trim-It Drill Pin, 2 X100 Mm Implanted:Qty: 1 on 07/01/2017 by Renea Landrum DPM at OR [facility] Left: Foot [employer] 12/30/2018 [id number] / / [id number] documented as of this encounter Visit Diagnoses Diagnosis HTN, goal below 140/90- Primary Unspecified essential hypertension documented in this encounter [...] and were consensually agreed upon. Care Teams Information Systems Director Relationship Specialty Start Date End Date Vesta Reyes MD [address] [facility] [place] [address] PCP - General 08/16/07 documented as of this encounter
--- NOTE | 2024-06-12 08:36 | Orthopedic Consultation ---
Date of Service June 12, 2024 Assessment & Plan (1) Fracture of tibia and fibula: She was educated on these injuries and further management. We recommend ORIF today of the right ankle. Procedure was explained including risks, benefits and alternatives to surgery. Consent obtained. Continue NPO, nonweight bearing on the right leg. It does look like she has an avulsion dorsally on the wrist. We'll likely be able remove the splint today and get a cock up wrist brace. (2) Avulsion fracture of right wrist: History of Present Illness Reason for Consultation: . Requesting Physician: . Attending Physician: Allan Sharma MD . Donita is 84 year old patient who slipped on some ice last night while going to feed her birds. She injured her right wrist and right ankle. She underwent closed reduction of the right ankle fx/dislocation in the ER and was admitted to the Hospitalist service. She is left hand dominant and previously ambulated independently. Allergies Allergy/AdvReac Type Severity Reaction Status Date / Time pollen extracts Allergy Intermediate congestion- Verified 06/12/24 13:02 nasal Home Medications Medication Instructions Recorded Confirmed Type ascorbic acid (vitamin C) 500 mg 500 mg PO DAILY 08/29/23 06/11/24 History tablet (Vitamin C) aspirin 81 mg tablet,delayed 81 mg PO DAILY 08/29/23 06/11/24 History release cholecalciferol (vitamin D3) 25 25 mcg PO DAILY 08/29/23 06/11/24 History mcg (1,000 unit) tablet (Vitamin D3) cyanocobalamin (vitamin B-12) 1,000 mcg PO DAILY 08/29/23 06/11/24 History 1,000 mcg tablet (Vitamin B-12) famotidine 20 mg tablet 20 mg PO HS 08/29/23 06/11/24 History fluticasone propionate 50 2 spray intranasal DAILY PRN prn 08/29/23 06/11/24 History mcg/actuation nasal spray,suspension loratadine 10 mg tablet (Claritin) 10 mg PO DAILY PRN allergies 08/29/23 06/11/24 History losartan 25 mg tablet 25 mg PO QAM 08/29/23 06/11/24 History metoprolol succinate 25 mg 25 mg PO DAILY 08/29/23 06/11/24 History tablet,extended release 24 hr pantoprazole 40 mg tablet,delayed 40 mg PO DAILY 08/29/23 06/11/24 History release rosuvastatin 40 mg tablet 40 mg PO DAILY 08/29/23 06/11/24 History albuterol sulfate 90 mcg/actuation 1 inh inhalation Q6H PRN shortness 08/30/23 06/11/24 Rx aerosol inhaler of breath or wheezing #6.7 grams Past Med/Surg History Problem List (Updated 06/12/24 @ 13:13 by Josefa Alvarez RN) Avulsion fracture of right wrist Fracture of tibia and fibula (Acute) Dislocation of ankle, right, closed (Acute) Acute right ankle pain (Acute) Fall from standing (Acute) Acute bronchitis Rhinovirus infection (Acute) Flu-like symptoms (Acute) Hypoxia (Acute) History of hysterectomy (Chronic) History of cataract surgery (Chronic) S/P cholecystectomy (Chronic) S/P bunionectomy (Chronic) Hammertoe (Chronic) CAD (coronary artery disease) (Chronic) "03/2017-NSTEMI, S/P ROMAN to LAD" Osteoporosis (Chronic) SRAVAN (iron deficiency anemia) (Chronic) GERD (gastroesophageal reflux disease) (Chronic) Medical History (Updated 06/12/24 @ 13:13 by Josefa Alvarez RN) Kidney stones Hiatal hernia CAD (coronary artery disease) N-STEMI 2016 Osteoporosis GERD (gastroesophageal reflux disease) Surgical History History of hysterectomy History of H/O parathyroidectomy at [facility] Hx of colonoscopy H/O cardiac catheterization Stent x1 History of cholecystectomy Social History Smoking Status: Never smoker Hx Alcohol Use: No Hx Substance Use: No Preferred Language: Moroccan Communication Ability: Effective Chief Executive Or Managing Director Required: No Beliefs That Will Affect Care: None Current Living Situation: Spouse Feels Safe at Home: Yes Assistive Devices: None Review of Systems All systems reviewed & are unremarkable except as noted in HPI & below. Physical Exam . alert and oriented. NAD Right wrist: splint in place. Tender over the dorsal hand/wrist. Able to flex and extend fingers. NVI Right ankle: splint in place. Able to move toes appropriately. Brisk refill. NVI Results & Data Results & Data Laboratory Results . Diagnostic Findings . Xrays of the right wrist show a small avulsion dorsally. No other fractures Xrays of the right ankle pre and post reduction, show a trimalleolar fx/dislocation, with some subluxation still on the post reduction views. PG Care Time/CCT Total # of Minutes Spent Total Time Spent with Patient: Total time spent is greater than 50% in coordination of care (as documented) at patient's floor/unit and/or counseling patient: Coding Level of Care Code 06166 IN/OBS CONSULT LVL 4,60M (57 - DECISION FOR SURGERY) Diagnoses Fracture of tibia and fibula S82.209A; S82.409A Avulsion fracture of right wrist S62.101A
[2024-06-12] MEDS: CYANOCOBALAMIN (B-12) 500 MCG TABLET PO SCH (08:53)
[2024-06-12] MEDS: PANTOprazole 40 MG TAB PO SCH (08:53)
[2024-06-12] MEDS: LOSARTAN POTASSIUM 25 MG TAB PO SCH (08:53)
[2024-06-12] MEDS: ROSUVASTATIN CALCIUM 20 MG TAB PO SCH (08:54)
[2024-06-12] MEDS: METOPROLOL SUCC 25MG EXT REL TAB PO SCH (08:54)
[2024-06-12] MEDS: CHOLECALCIFEROL 25 MCG (1000 UNITS) TAB PO SCH (08:54)
--- NOTE | 2024-06-12 09:04 | Hospitalist Progress Note ---
Date of Service June 12, 2024 Assessment & Plan (1) Fracture of tibia and fibula: Plan: 84 year old female that presents s/p mechanical fall on ice; acute fx identified tib/fib with tibiotalar dislocation. Ortho consulted; Dr. Doherty to perform right ankle ORIF today this afternoon. Patient is n.p.o. continue IV fluids. Hold oral aspirin. RCRI assessment; due for proceeding planned surgery. Traumatic right tibia/fibular fracture: Age-related osteoporosis with current pathologic fracture, right wrist and right tib/fib H/O Osteoporosis: Traumatic right wrist pain Tib Fib x-ray and ankle x-ray: Acute fractures of the distal tibia and fibula with tibiotalar dislocation. Posterior malleolus is not well-evaluated with possible fracture fragment noted laterally. Ortho consulted; Dr. Doherty to perform R Ankle ORIF today NPO, IVF @ 60ml/hour ASA on hold Ortho to place IV abx (Pt lives in ranch style home with three steps to enter home) CAD: Chronic s/p stent from a few years ago stable as per last outpatient G cardiology visit January 2024 Takes ASA; on hold pending OR HTN: slight elevated secondary discomfort Takes Metoprolol and Losartan; cont HLD: Chronic Takes Rosuvastatin: continue Other medical conditions: GERD, hiatal hernia (stable), prediabetes: A1C 6.1 2 023. Disposition: PCP: Dr. Reyes -- Code Status: Full Code -- VTE Prophylaxis: Teds/SCDs for now : Mr. Nakul Brandon, contact #[phone]. (Pt lives in ranch style home with three steps to enter home) I spent a total of 56 minutes coordinating, documenting, and providing care for this patient excluding time spent inthe performance of separately billed services or time spent by another provider/QHP. Admission and Anticipated Discharge Date Admission Date: June 11, 2024 Supervising Physician Co-Signing Physician Notes Patient is seen and examined at bedside. Denies any significant right arm, right ankle pain. Discussed with patient's family at bedside. Plan for right ankle surgery today. Patient denies any chest pain, dyspnea, dizziness. On exam patient is obese, no apparent distress, normocephalic atraumatic, EOMI, normal breath sounds, clear to auscultation, S1-S2, no murmur, no pedal edema, abdomen soft, nontender, alert, awake, oriented, grossly no focal deficits, right wrist and right ankle in splint.Patient currently being managed for Age- related osteoporosis with current pathologic fracture, right wrist and right tib/fib secondary to mechanical fall. Appreciate orthopedics help. Pain control, fall precautions. Bowel regimen to prevent constipation. Continue home medications as able. I personally interviewed and examined the patient at bedside. I have reviewed the advanced practitioner's documentation on the date of service referred in note and agree with plan. Patient's care is coordinated with Irene CARNEY. Please refer to the documentation above for details of patient's presentation and for discussion of other issues. I spent a total [id number] coordinating, documenting, and providing care for this patient excluding time spent in the performance of separately billed services or time spent by another provider/QHP. Subjective Pt lying in her hospital bed in NAD. Denies ALCALA, dizziness, chest pain, palpitations, N/V/D Reports she has not had a BM today; she typically has one daily. No abdominal pain or tenderness. (+) flatulence. Reports she was taking bird seed outside to refill bird feeders and slipped on ice on her outside patio steps; she laid on the porch for approximately 20 minutes until she was able to 'crawl' back inside. Has not taken any pain medication today; report pain 4/10. Ortho to perform R Ankle ORIF this afternoon. ASA on hold. at bedside and aware of plan. Review of Systems Review of Systems: Neuro: (-) Falls, trauma, slurred speech HEENT: (-) ALCALA, dizziness, dysphagia, visual or auditory changes CV: (-) CP, palpitations, swelling. Resp: (-) SOB GI: (-) appetite changes, N/V/D, bowel changes : (-) urinary changes Skin: (-) rashes Musculoskeletal: Denies neuropathy Psych: (-) anxiety, depression Physical Exam Physical Exam: Neuro: AAOx4, PERRLA, no aphagia, memory changes, CNII-XII grossly intact HEENT: head normocephalic, moist mucus membranes CV: S1/S2, (-) M/G/R, (-) edema, cap refill < 3 seconds (+) pedal pulses B/L LE Resp: Lungs CTA in all downey. On RA GI: Abdomen S/NT/ND, Ax4 bowel sounds, (-) CVA tenderness Musculoskeletal: Does not use ambulation assist devices at baseline. RLE 2/5; able to wiggle toes. Imobilization device on RLE. Denies neuropathy. RUE 2 Skin: (-) rashes , (-) erythema. Psych: euthymic mood Results & Data Results & Data Vital Signs (Past 12 Hours) Vital Signs Temp Pulse Pulse Pulse Resp BP BP 06/12/24 07:13 36.8 C 67 17 154/73 H 06/12/24 06:38 36.6 C 64 18 147/78 H 06/12/24 03:00 37.1 C 60 18 144/77 H 06/11/24 22:46 59 L 13 06/11/24 22:36 62 18 06/11/24 21:40 75 15 06/11/24 21:10 61 20 BP Pulse Ox O2 Del Method 06/12/24 07:13 93 Room Air 06/12/24 06:38 95 Room Air 06/12/24 03:00 94 06/11/24 22:46 152/80 H 96 Room Air 06/11/24 22:36 152/80 H 95 Room Air 06/11/24 21:40 168/79 H 95 Room Air 06/11/24 21:10 163/62 H Laboratory Results Short CBC 06/11/24 06/12/24 Range/Units 16:00 06:57 WBC 7.91 8.34 (4.8-10.8) K/ul Hgb 12.2 11.7 L (12.0-16.0) g/dl Hct 38.8 36.7 L (37.0-47.0) % Plt Count 235 213 (130-400) K/uL BMP 06/11/24 16:00 Sodium 138 Potassium 3.8 Chloride 103 Carbon Dioxide 28 BUN 15 Creatinine 0.65 Glucose 108 H Calcium 9.7 Cardiac Enzymes 06/11/24 Range/Units 16:00 Total Creatine Kinase 49 (26-192) U/L Liver Function 06/11/24 Range/Units 16:00 Total Bilirubin 0.7 (0.2-1.0) mg/dl AST 17 (13-39) U/L ALT 14 (7-52) U/L Alkaline Phosphatase 92 (34-104) U/L Albumin 4.2 (3.4-5.0) gm/dl Diagnostic Findings Ankle X-Ray 06/11/24 19:25 EXAM: XR ankle RT 2V CLINICAL HISTORY: Post red TECHNIQUE: X-ray images of the right ankle were obtained in anteroposterior (AP), lateral, and mortise projections. COMPARISON: 06/11/2024 16:45:00 DATA REVIEWER FINDINGS: Reduced bone density. Bone Structure: There are displaced fractures identified in medial malleolus and distal fibula with minimally subluxed tibiotalar joint. No osseous lesions or abnormalities identified. Soft Tissues: Moderate soft tissue swelling is identified in right distal leg and right ankle. No soft tissue calcifications, or foreign bodies noted. Additional Findings: Plantar calcaneal spur and enthesophyte are present. POP cast is applied. IMPRESSION: Evidence of marked reduction of dislocated ankle joint,however minimally possible subluxation of tibiotalar joint is still present. Fractures of medial malleolus and distal fibula with adjacent soft tissue swelling. Disclaimer: A subtle bone abnormality or fracture may not be readily apparent on X-rays, thus clinical correlation and further imaging including follow-up CT, MRI, or follow-up X-rays are advised as needed. Electronically signed by Alexey De Souza 06-11-2024 9:52 PM Wrist X-Ray 06/11/24 21:53 Exam(s): XR RIGHT WRIST, 3+ views EXAM: XR Right Wrist Complete, 3 or More Views CLINICAL HISTORY: Reason for exam: pain, trauma hx. TECHNIQUE: Frontal, lateral and oblique views of the right wrist. COMPARISON: No relevant prior studies available. FINDINGS: Bones/joints: Osteopenia. Small bone fragment on the dorsal aspect of the carpal bones on the lateral view. No acute fracture. No dislocation. Soft tissues: Unremarkable. No radiopaque foreign body. IMPRESSION: Small bone fragment on the dorsal aspect of the carpal bones on the lateral view. May represent triquetral fracture. Electronically signed by: Ayla Saldaña M.D. 06/12/24 02:24 AM
[2024-06-12] MEDS: ACETAMINOPHEN 325 MG TAB PO PRN (09:10)
--- NOTE | 2024-06-12 09:11 | Anesthesiology Consultation ---
Date of Service June 12, 2024 Assessment & Plan Chart Review Chart Review: Acceptable Risk for Surgery and Patient NOT seen in Pre Admission Testing History Surgery Operation Date: 06/12/24 07:00 Proposed Procedures p Right Ankle Open Reduction Internal Fixation - Jayden Doherty MD Height/Weight Height: 5 ft Weight: 76.7 kg Allergies Allergy/AdvReac Type Severity Reaction Status Date / Time pollen extracts Allergy Unknown Verified 08/29/23 21:03 Medications Home Medications Medication Instructions Recorded Confirmed Last Taken ascorbic acid (vitamin C) 500 mg 500 mg PO DAILY 08/29/23 06/11/24 06/11/24 tablet (Vitamin C) aspirin 81 mg tablet,delayed 81 mg PO DAILY 08/29/23 06/11/24 06/11/24 release cholecalciferol (vitamin D3) 25 25 mcg PO DAILY 08/29/23 06/11/24 06/11/24 mcg (1,000 unit) tablet (Vitamin D3) cyanocobalamin (vitamin B-12) 1,000 mcg PO DAILY 08/29/23 06/11/24 06/11/24 1,000 mcg tablet (Vitamin B-12) famotidine 20 mg tablet 20 mg PO HS 08/29/23 06/11/24 06/10/24 fluticasone propionate 50 2 spray intranasal DAILY PRN prn 08/29/23 06/11/24 Unknown mcg/actuation nasal spray,suspension loratadine 10 mg tablet (Claritin) 10 mg PO DAILY PRN allergies 08/29/23 06/11/24 Unknown losartan 25 mg tablet 25 mg PO QAM 08/29/23 06/11/24 06/11/24 metoprolol succinate 25 mg 25 mg PO DAILY 08/29/23 06/11/24 06/11/24 tablet,extended release 24 hr pantoprazole 40 mg tablet,delayed 40 mg PO DAILY 08/29/23 06/11/24 06/11/24 release rosuvastatin 40 mg tablet 40 mg PO DAILY 08/29/23 06/11/24 06/11/24 albuterol sulfate 90 mcg/actuation 1 inh inhalation Q6H PRN shortness 08/30/23 06/11/24 Unknown aerosol inhaler of breath or wheezing #6.7 grams Active Medications Generic Name Dose Route Start Last Admin Trade Name Freq PRN Reason Stop Dose Admin Acetaminophen 650 mg 06/11/24 21:54 06/12/24 09:10 Acetaminophen 325 Mg Tab PO 07/11/24 21:53 650 mg QID PRN Administration pain/fever Cyanocobalamin 1,000 mcg 06/12/24 09:00 06/12/24 08:53 Cyanocobalamin (B-12) 500 Mcg Tablet PO 07/12/24 08:59 1,000 mcg DAILY ANAID Administration Sodium Chloride 1,000 mls @ 60 mls/hr 06/12/24 00:00 06/11/24 23:51 Nss IV 06/12/24 16:39 60 mls/hr .[id number] ONE Administration Losartan Potassium 25 mg 06/12/24 09:00 06/12/24 08:53 Losartan Potassium 25 Mg Tab PO 07/12/24 08:59 25 mg QAM ANAID Administration Metoprolol Succinate 25 mg 06/12/24 09:00 06/12/24 08:54 Metoprolol Succ 25mg Ext Rel Tab PO 07/12/24 08:59 25 mg DAILY ANAID Administration Pantoprazole Sodium 40 mg 06/12/24 09:00 06/12/24 08:53 Pantoprazole 40 Mg Tab PO 07/12/24 08:59 40 mg DAILY ANAID Administration Rosuvastatin Calcium 40 mg 06/12/24 09:00 06/12/24 08:54 Rosuvastatin Calcium 20 Mg Tab PO 07/12/24 08:59 40 mg DAILY ANAID Administration Vitamin D 25 mcg 06/12/24 09:00 06/12/24 08:54 Cholecalciferol 25 Mcg (1000 Units) Tab PO 07/12/24 08:59 25 mcg DAILY ANAID Administration Social History Smoking Status: Never smoker Hx Alcohol Use: No Hx Substance Use: No Physical Exam Vital Signs Last Vital Signs Temp 36.8 C 06/12/24 07:13 Pulse 67 06/12/24 07:13 Resp 17 06/12/24 07:13 BP 154/73 H 06/12/24 07:13 Pulse Ox 93 06/12/24 07:13 O2 Del Method Room Air 06/12/24 07:13 Testing Laboratory Results 06/12/24 06:57 06/11/24 16:00
[2024-06-12] MEDS ORDERED: fentaNYL citrate PF 100 MCG/2 ML VIAL ONE ×2 (12:35→15:20)
[2024-06-12] MEDS ORDERED: LIDOCAINE 2% 2 ML VIAL/AMP(20MG/ML) INFIL ONE (12:36)
[2024-06-12] MEDS ORDERED: PROPOFOL IV EMULSION 10 MG/ML 20 ML VIAL IV ONE (12:36)
--- NOTE | 2024-06-12 13:47 | History & Physical Bridge Note ---
Date of Service June 12, 2024 History & Physical Bridge Note I have examined the patient, reviewed the History & Physical and in the interval since the performance of the History & Physical I have noted the following changes of clinical significance: no changes noted
[2024-06-12] MEDS ORDERED: BUPIVACAINE 0.25% PF 30 ML VIAL ONE (13:48)
[2024-06-12] MEDS ORDERED: MIDAZOLAM HCL 1 MG/ML 2ML VIAL ONE (13:55)
[2024-06-12] MEDS ORDERED: ONDANSETRON INJ 2 MG/ML 2 ML VIAL ONE (13:57)
[2024-06-12] MEDS: ceFAZolin 2000MG 2,000 MG/15 ML SYR IV ONE (14:08)
[2024-06-12] MEDS: ceFAZolin 2,000 MG/15 ML IV PUSH IV ONE (14:13)
[2024-06-12] MEDS ORDERED: DEXAMETHASONE SOD INJ 4 MG/ML VIAL ONE (14:30)
[2024-06-12] MEDS: BUPIVACAINE/EPINEPHRINE 0.5% MPF 1:200,000 30 ML VIAL ONE (15:40)
--- NOTE | 2024-06-12 15:59 | Fluoroscopy Report ---
FL ankle RT min 3V RTN CLINICAL HISTORY: RT ANKLE ORIF COMPARISON STUDY: Right ankle radiographs June 11, 2024. FLUOROSCOPY TIME: 16 seconds. Ka,r: 0.37 mGy FLUOROSCOPIC IMAGES: 3 FINDINGS: Fluoroscopy was provided during open reduction and internal fixation of the distal right ti bial and fibular fractures. Fracture alignment has significantly improved and appears anatomic. Hardw are is intact. Ankle mortise widening is no longer identified. IMPRESSION: Fluoroscopy provided during internal fixation of the distal right tibial and fibular fra ctures. ACT 112: Negative or not required by law. Electronically signed by: Bam Sage M.D. 06/12/2024 3:57 PM
--- NOTE | 2024-06-12 16:19 | Operative Report ---
PG Post Operative Report Pre & Post Diagnosis Operation Date: 06/12/24 07:00 Pre-Op Diagnosis: Right trimalleolar ankle fracture dislocation Post-Op Diagnosis: Right trimalleolar ankle fracture dislocation I identified the patient and participated in the time-out.: Yes Procedure Operation Date: 06/12/24 07:00 Actual Procedures p Right Ankle Open Reduction Internal Fixation trimalleolar fracture/dislocation (Right) - Jayden Doherty MD Surgeon Jayden Doherty MD Stave Log Ripsaw Operator Rocky Fried PA-C Estimated Blood Loss 20 Findings Consistent with Post-Op Diagnosis Specimens None Anesthesia Type General Complications none Disposition Accompanied Patient To Recovery: No Indications Patient is an 84-year-old female who slipped on the ice yesterday. That she had acute onset of pain and deformity to her ankle. She was brought to emergency room where x-rays without a fracture dislocation. She underwent a closed reduction and splinting. The patient was admitted by the medicine service and medically optimized and indicated for surgical stabilization of the unstable trimalleolar ankle fracture dislocation. Description of Procedure Medial side implants consist of: 1 Synthes 4.0 partially-threaded/long threaded cannulated screw x 2 with washers. Lateral side implants consist of: 1. Synthes 7 hole one third semitubular locking plate. 2. Synthes 5 hole one third semitubular locking plate. 3. 4.0 partially-threaded cancellous screw x 1. 4. 3.5 fully threaded cortical screws x 5. 5. 3.5 locking screw x 1. The patient was taken the op room, identified, placed on the operating table in the supine position. All conductors were appropriately padded. IV antibiotics fibra anesthesia team. A general anesthetic was implemented. A right thigh tent was then placed. The right lower extremity splint was removed. The right ankle was then scrubbed with Hibiclens, prepped with ChloraPrep and draped in usual sterile fashion. The right leg was elevated and exsanguinated with use of an Esmarch and the tourniquet was placed at 300 mmHg. Patient was first drawn to the medial side. A curvilinear incision was made over the medial malleolus area. Sharp dissection scalp through the subcutaneous tissue directly down the fracture site. There is significant comminution of the fracture. I tried not to devascularize the fragments as I really could not get a good piece or purchase in any single fragment due to the multiple fragments present. We reduced this to the medial malleolus kind of en dian and held it with some wires. I placed 2 partially-threaded/long threaded cannulated screws with washers over guidewires into the medial malleolus fractures. We used the washers in order to create some more global compression on the soft tissues. Attention drawn laterally. Direct lateral approach to the fibula was then performed through a curvilinear incision over the posterior border the fibula. Sharp dissection was carried out through subcutaneous tissue directly down the fracture. The fracture was anatomically reduced and then I placed a single 4.0 partially-threaded cancellous lag screw across the fracture site from anterior to posterior. I the n contoured a 7 hole one third tubular locking plate to the lateral aspect the fibula and fixed it with 4 screws proximally and a locking screw distally. Due to the unstable nature of this fracture I did wanted to place a posterior buttress on the fibula as well provide some posterior support. A 5 hole one third semitubular locking screw was then placed in antiglide fashion with 3 cortical screws proximally. X-rays brought in. The fracture is anatomically aligned. There is no instability to the mortise. Attention drawn toward closing. The wounds were irrigated extensively. Injected locally with 30 cc of half percent Marcaine with epinephrine. The fascia over the plate laterally was closed with 0 Vicryl suture in a [id number] fashion. The tourniquet was then let down for tourniquet time 53 minutes. Hemostasis assured use electrocautery. Both wounds were then once again irrigated. The subcutaneous tissues were closed with 2-0 Vicryl suture in buried interrupted fashion skin was closed with 3-0 nylon suture in a simple fashion. The leg was then cleaned and dried and a sterile dressing was Xeroform, 4 fours, sterile cast padding and a well-padded posterior and stirrup splint were applied. The patient was then brought out of general esthesia and transferred to the recovery room in stable condition. The patient tolerated procedure well and there were no complicat ions. Rocky Fried, my physician delinquent tax collector assistant, was present for the entire procedure. His assistance was required for proper patient positioning, prepping and draping, surgical exposure, retraction, perform the technical details of the operation, placement of hardware, closure of the incision sites, and placement of the postoperative sterile bandage and splint. I attest to the content of the Intraoperative Record and any orders documented therein. Any exceptions are noted below.
[2024-06-12] MEDS ORDERED: ALUMINUM/MAGNESIUM SUSP 30 ML UDC PO PRN (16:58)
[2024-06-12] MEDS ORDERED: ALBUTEROL HFA 8 GM INHALER INH PRN (16:58)
[2024-06-12] MEDS ORDERED: NALOXONE HCL 0.4 MG/1 ML VIAL/CARP IV PRN (16:58)
[2024-06-12] MEDS ORDERED: HYDROmorphone INJ 0.5 MG/0.5 ML SYR IV PRN (16:58)
[2024-06-12] MEDS ORDERED: ONDANSETRON INJ 2 MG/ML 2 ML VIAL IV PRN (16:58)
[2024-06-12] MEDS ORDERED: MAGNESIUM HYDROXIDE SUSP 30 ML UDC PO PRN (16:58)
[2024-06-12] MEDS ORDERED: bisacodyL 10 MG SUPP PR PRN (16:58)
[2024-06-12] MEDS ORDERED: METOCLOPRAMIDE HCL INJ 5 MG/ML 2 ML VIAL IV PRN (16:58)
[2024-06-12] MEDS: KETOROLAC TROMETHAMINE 15 MG/ML VIAL IV SCH (17:31)
[2024-06-12] MEDS: ASCORBIC ACID 500 MG TAB PO SCH (17:32)
[2024-06-12] MEDS: DOCUSATE SODIUM/SENNA 50/8.6MG TAB PO SCH (17:32)
[2024-06-12] MEDS: SENNA 8.6 MG TAB PO SCH (20:10)
[2024-06-12] MEDS: FAMOTIDINE 20 MG TAB PO SCH (20:10)
[2024-06-12] MEDS: DOCUSATE SODIUM 100 MG CAP PO SCH (20:10)
[2024-06-12] MEDS: ceFAZolin 1000MG 1,000 MG/7.5 ML SYR IV SCH (22:13)
[2024-06-12] MEDS: ACETAMINOPHEN 500 MG TAB PO SCH (22:13)
--- NOTE | 2024-06-13 05:47 | Electrocardiogram Report ---
Test Reason : Blood Pressure : */* mmHG Vent. Rate : 61 BPM Atrial Rate : 61 BPM P-R Int : 154 ms QRS Dur : 72 ms QT Int : 434 ms P-R-T Axes : 53 17 53 degrees QTcB Int : 436 ms Normal sinus rhythm Anterior infarct (cited on or before 29-Aug-2023) Abnormal ECG When compared with ECG of 30-Aug-2023 00:11, Premature atrial complexes are no longer Present Questionable change in initial forces of Septal leads Confirmed by Chu Vanegas ([id number]) on 06/13/2024 5:46:49 AM Referred By: REFERRED SELF Confirmed By: Chu Vanegas
[2024-06-13 07:08] LABS: Hematocrit (blood only) 34.5 % (37.0-47.0); Hemoglobin 10.9 g/dl (12.0-16.0); Mean Corpuscular Hemoglobin 26.3 pg (25.0-34.0); Mean Corpuscular Hgb Conc 31.6 g/dL (32.0-36.0); Mean Corpuscular Volume 83.3 fL (80.0-100.0); Mean Platelet Volume 9.6 fL (9.4-12.4); Platelet Count 205 K/uL (130-400); RDW Coefficient of Variation 15.6 % (11.5-14.5); RDW Standard Deviation 47.2 fL (36.4-46.3); Red Blood Count 4.14 M/uL (4.20-5.40); White Blood Count 9.43 K/ul (4.8-10.8)
[2024-06-13 07:17] LABS: BUN Creatinine Ratio 25.7 (10-20); Calcium 8.7 mg/dl (8.6-10.3); Creatinine Clr Calc Pharmacy 56.7 ml/min; Potassium 4.3 mmol/L (3.5-5.1)
[2024-06-13] MEDS: ASPIRIN 81 MG ECTAB PO SCH (08:10)
[2024-06-13] MEDS: MULTIVITAMIN TAB PO SCH (08:13)
[2024-06-13] MEDS ORDERED: ASCORBIC ACID 500 MG TAB PO SCH (09:00)
--- NOTE | 2024-06-13 10:26 | Orthopedic Progress Note ---
Date of Service June 13, 2024 Assessment & Plan (1) Avulsion fracture of right wrist: (2) Fracture of tibia and fibula: (3) Dislocation of ankle, right, closed: Plan Assessment: Status post open reduction internal fixation of the right ankle. Avulsion fracture of the right wrist. Plan: Overall, she is doing quite well today with good pain control right wrist and right ankle. She will work with physical therapy later this morning to work on ambulation and range of motion exercises. She should remain nonweightbearing to the right ankle. She should remain in her splint until she is seen in the office. She would like to be discharged home but depending on how physical therapy goes, this may not be a safe option. Depending on physical therapy recommendations, she may benefit from a short stay at a rehab facility/[facility] facility. She will be on aspirin for DVT prophylaxis. May continue current pain medication regimen. From an orthopedic standpoint, she is cleared to be discharged once medically stable. She will follow-up with Dr. Doherty in 2 weeks for continued postoperative management. Taylor Duckworth was seen this morning resting comfortably in no apparent distress. She notes that her pain is well-controlled to the right ankle today. She has yet to be up and out of bed with physical therapy. She is currently nonweightbearing to the right lower extremity. She denies any concerns with the right lower extremity. She denies any active bleeding, discharge, or signs of infection. She denies any other concerns today. She is maintaining her Velcro wrist splint to her right wrist as well. Review of Systems All systems reviewed & are unremarkable except as noted in HPI & below. Physical Exam . On physical examination of the right ankle, the dressings are clean, dry, and intact with no signs of active bleeding, discharge, or signs of infection. Able to wiggle all 5 toes. Less than 2-second capillary refill. Normal sensation. Neurovascular intact. On physical examination of the right wrist, Velcro wrist splint is in place with normal range of motion in all 5 digits. Less than 2- second capillary refill. Normal sensation. Neurovascular intact. Results & Data Results & Data Laboratory Results . Diagnostic Findings . Ankle X-Ray 06/11/24 16:17 EXAM: Radiographs of the Right Ankle 2 Views INDICATION: Posttraumatic pain. TECHNIQUE: Frontal and lateral views of the right ankle. COMPARISON: No relevant prior studies available. FINDINGS: Limitations: None. Bones/joints: There is acute trimalleolar fracture with tibiotalar dislocation. The talus is impacted upon the proximal fragment of the fibula. The distal fibular fragment is roughly 4 cm long and displaced nearly 1 shaft with lateral. There is mildly comminuted fracture of the medial malleolus. The posterior malleolus is difficult to assess with possible fragment projecting over the proximal fibular component. The tibia is perched on the medial edge of the talus which is rotated medially. No definite talar fracture noted. Small plantar and Achilles surface calcaneal spurs noted. Soft tissues: Periarticular soft tissue swelling noted. IMPRESSION: Acute fractures of the distal tibia and fibula with tibiotalar dislocation. Posterior malleolus is not well-evaluated with possible fracture fragment noted laterally. ACT 112: Negative or not required by law. Electronically signed by Talita Ramirez 06-11-2024 5:41 PM Chest X-Ray 06/11/24 16:17 INDICATION: Preoperative evaluation. TECHNIQUE: Frontal radiograph of the chest. COMPARISON: None. FINDINGS: Cardiomegaly. Large hiatal hernia. Mild pulmonary vascular congestion. Subsegmental atelectasis in the lung bases. No infiltrate, pleural effusion or pneumothorax. No acute osseous abnormality evident. IMPRESSION: Mild pulmonary vascular congestion. Large hiatal hernia. Electronically signed by Oracio Mora 06-11-2024 4:55 PM Tibia/Fibula X-Ray 06/11/24 16:17 EXAM: Radiographs of the Right Tibia and Fibula 2 Views INDICATION: Ankle fracture. TECHNIQUE: Frontal and lateral views of the right tibia and fibula. COMPARISON: No relevant prior studies available. FINDINGS: Bones/joints: Distal tibiotalar dislocation with fractures of the medial and lateral malleolar line noted. Question fracture from the posterior malleolus projecting over the proximal distal fibula fragment. No other tibial or fibular fracture noted. Incidental sclerotic nodule in the proximal tibia likely a small bony infarct. Soft tissues: Extensive soft tissue swelling noted. IMPRESSION: Distal tibial and fibular fractures with tibiotalar dislocation. No other fracture noted. ACT 112: Negative or not required by law. Electronically signed by Talita Ramirez 06-11-2024 5:41 PM Ankle X-Ray 06/11/24 19:25 EXAM: XR ankle RT 2V CLINICAL HISTORY: Post red TECHNIQUE: X-ray images of the right ankle were obtained in anteroposterior (AP), lateral, and mortise projections. COMPARISON: 06/11/2024 16:45:00 MULTIM[employer]IA PROD[employer]ER FINDINGS: Reduced bone density. Bone Structure: There are displaced fractures identified in medial malleolus and distal fibula with minimally subluxed tibiotalar joint. No osseous lesions or abnormalities identified. Soft Tissues: Moderate soft tissue swelling is identified in right distal leg and right ankle. No soft tissue calcifications, or foreign bodies noted. Additional Findings: Plantar calcaneal spur and enthesophyte are present. POP cast is applied. IMPRESSION: Evidence of marked reduction of dislocated ankle joint,however minimally possible subluxation of tibiotalar joint is still present. Fractures of medial malleolus and distal fibula with adjacent soft tissue swelling. Disclaimer: A subtle bone abnormality or fracture may not be readily apparent on X-rays, thus clinical correlation and further imaging including follow-up CT, MRI, or follow-up X-rays are advised as needed. Electronically signed by Alexey De Souza 06-11-2024 9:52 PM Wrist X-Ray 06/11/24 21:53 Exam(s): XR RIGHT WRIST, 3+ views EXAM: XR Right Wrist Complete, 3 or More Views CLINICAL HISTORY: Reason for exam: pain, trauma hx. TECHNIQUE: Frontal, lateral and oblique views of the right wrist. COMPARISON: No relevant prior studies available. FINDINGS: Bones/joints: Osteopenia. Small bone fragment on the dorsal aspect of the carpal bones on the lateral view. No acute fracture. No dislocation. Soft tissues: Unremarkable. No radiopaque foreign body. IMPRESSION: Small bone fragment on the dorsal aspect of the carpal bones on the lateral view. May represent triquetral fracture. Electronically signed by: Ayla Saldaña M.D. 06/12/24 02:24 AM Ankle X-Ray 06/12/24 00:00 FL ankle RT min 3V RTN CLINICAL HISTORY: RT ANKLE ORIF COMPARISON STUDY: Right ankle radiographs June 11, 2024. FLUOROSCOPY TIME: 16 seconds. Ka,r: 0.37 mGy FLUOROSCOPIC IMAGES: 3 FINDINGS: Fluoroscopy was provided during open reduction and internal fixation of the distal right tibial and fibular fractures. Fracture alignment has significantly improved and appears anatomic. Hardware is intact. Ankle mortise widening is no longer identified. IMPRESSION: Fluoroscopy provided during internal fixation of the distal right tibial and fibular fractures. ACT 112: Negative or not required by law. Electronically signed by: Bam Sage M.D. 06/12/2024 3:57 PM PG Care Time/CCT Total # of Minutes Spent Total Time Spent with Patient: Total time spent is greater than 50% in coordination of care (as documented) at patient's floor/unit and/or counseling patient: Coding Level of Care Code 31314 Post Operative Follow-Up Diagnoses Avulsion fracture of right wrist S62.101A Fracture of tibia and fibula S82.209A; S82.409A Dislocation of ankle, right, closed S93.04XA
--- NOTE | 2024-06-13 14:02 | Hospitalist Progress Note ---
Date of Service June 13, 2024 Assessment & Plan (1) Fracture of tibia and fibula: Plan: 84 year old female that presents s/p mechanical fall on ice; (Pt lives in ranch style home with three steps to enter home) Found to have acute fx identified tib/fib with tibiotalar dislocation. Traumatic right tibia/fibular fracture: Age-related osteoporosis with current pathologic fracture, right wrist and right tib/fib H/O Osteoporosis: Traumatic right wrist pain Tib Fib x-ray and ankle x-ray: Acute fractures of the distal tibia and fibula with tibiotalar dislocation. Posterior malleolus is not well-evaluated with possible fracture fragment noted laterally. Wrist XR showed small bone fragment on the dorsal aspect of the carpal bones on the lateral view. May represent triquetral fracture S/p Rt ankle ORIF POD 1 NWB RLE Based on patient's functional status on my eval, patient will require some form of rehab Reviewed PT/OT Discussed with patient and . Patient reports she will like some form of rehab CM notified Check Vit D level CAD: Chronic S/p stent from a few years ago stable as per last outpatient [facility] cardiology visit January 2024 Takes ASA Hypertension: Continue Metoprolol and Losartan HLD: Chronic Continue Rosuvastatin Other medical conditions: GERD, hiatal hernia (stable), prediabetes: A1C 6.1 2022. Disposition: PCP: Dr. Reyes -- Code Status: Full Code -- VTE Prophylaxis: Teds/SCDs for now : Mr. Nakul Brandon, contact #[phone]. I spent a total of 50 minutes coordinating, documenting and providing care for this patient excluding time spent in performance of separately billed services Admission and Anticipated Discharge Date Admission Date: June 11, 2024 Subjective Patient seen and examined Reports right ankle pain is well controlled Denied any other complaints Physical Exam Constitutional: + well hydrated; no acute distress Eyes: PERRL, conjunctivae normal, anicteric sclerae ENMT: external ear and nose normal, oropharynx normal Respiratory: normal respiratory effort, lungs clear to auscultation Cardiovascular: Rate/Rhythm: regular rate and regular rhythm Gastrointestinal (Abdomen): normal bowel sounds, soft, nontender, no hepatosplenomegaly Musculoskeletal: Rt wrist with wrist splint in place Rt LE bandaged Neurologic: PERRL, EOMI, accommodation nl, no face palsy, no dysarthria Psychiatric: A+Ox3, euthymic affect Results & Data Results & Data Vital Signs (Past 12 Hours) Vital Signs Temp Pulse Pulse Resp BP Pulse Ox O2 Del Method 06/13/24 12:17 36.8 C 68 18 152/76 H 96 Room Air 06/13/24 08:09 63 146/79 H 06/13/24 07:44 36.2 C L 62 18 138/76 95 Room Air 06/13/24 03:04 36.5 C 55 L 18 129/67 95 Room Air Laboratory Results Abnormal lab results 06/13/24 Range/Units 06:23 RBC 4.14 L (4.20-5.40) M/uL Hgb 10.9 L (12.0-16.0) g/dl Hct 34.5 L (37.0-47.0) % MCHC 31.6 L (32.0-36.0) g/dL RDW Std Deviation 47.2 H (36.4-46.3) fL RDW Coeff of Khadra 15.6 H (11.5-14.5) % BUN/Creatinine Ratio 25.7 H (10-20) Glucose 115 H (70-99(Fasting)) mg/dl
[2024-06-14 07:05] LABS: BUN Creatinine Ratio 32.5 (10-20); Calcium 8.4 mg/dl (8.6-10.3); Creatinine Clr Calc Pharmacy 51.6 ml/min
--- NOTE | 2024-06-14 07:32 | Orthopedic Progress Note ---
Date of Service June 14, 2024 Assessment & Plan (1) Fracture of tibia and fibula: Plan: 84-year-old female postop day 2 from ORIF of a right trimalar ankle fracture dislocation doing well. Pains controlled. She is neurologically intact. Also has a fairly minor wrist injury in a brace doing well. Plan: 1. DVT prophylaxis including thigh-high teds, SCDs, aspirin twice a day for 6 weeks. 2. PT/OT. She is strictly nonweightbearing on this right leg for the next 2 weeks. Needs to obey heel precautions. 3. Pain control. Doing well with current pain regimen. 4. Medical management as per the medicine service. 5. Disposition. She is orthopedically okay for discharge anytime medically stable and no beds available. I need to see her back 2 to 3 weeks out from surgery date. She just needs to keep this bandage and dressing clean dry and in place. Keep all pressure off the heel to prevent heel sores. Any orthopedic questions can be directly [phone]. (2) Dislocation of ankle, right, closed: (3) Avulsion fracture of right wrist: Admission and Anticipated Discharge Date Admission Date: June 11, 2024 Subjective 84-year-old female now postop day 2 from ORIF of the right ankle fracture. She is doing well. Does not really have much in the way of pain. She is decided she wants to go to rehab. Wrist is doing well in the splint. Physical Exam Physical Exam: Physical nation of the right leg reveals the splint to be in place. There is no drainage on the dressing. She can dorsiflex and plantarflex her toes appropriately. She is neurologically intact. Examination of the wrist reveals the cock-up wrist multiple ambulates. Minimal swelling. As she is neurologically intact. Results & Data Vital Signs (Past 12 Hours) Vital Signs Temp Pulse Resp BP Pulse Ox O2 Del Method 06/13/24 20:16 36.6 C 67 18 118/69 94 Room Air Laboratory Results Labs are pending.
[2024-06-14 08:50] LABS: Hematocrit (blood only) 34.6 % (37.0-47.0); Hemoglobin 10.9 g/dl (12.0-16.0); Mean Corpuscular Hemoglobin 26.1 pg (25.0-34.0); Mean Corpuscular Hgb Conc 31.5 g/dL (32.0-36.0); Mean Platelet Volume 10.2 fL (9.4-12.4); Platelet Count 192 K/uL (130-400); RDW Coefficient of Variation 15.8 % (11.5-14.5); RDW Standard Deviation 47.5 fL (36.4-46.3); Red Blood Count 4.17 M/uL (4.20-5.40); White Blood Count 8.46 K/ul (4.8-10.8)
--- NOTE | 2024-06-14 15:27 | Hospitalist Progress Note ---
Date of Service June 14, 2024 Assessment & Plan (1) Fracture of tibia and fibula: Plan: 84 year old female that presents s/p mechanical fall on ice; (Pt lives in ranch style home with three steps to enter home) Found to have acute fx identified tib/fib with tibiotalar dislocation. Traumatic right tibia/fibular fracture: Age-related osteoporosis with current pathologic fracture, right wrist and right tib/fib H/O Osteoporosis: Traumatic right wrist pain Tib Fib x-ray and ankle x-ray: Acute fractures of the distal tibia and fibula with tibiotalar dislocation. Posterior malleolus is not well-evaluated with possible fracture fragment noted laterally. Wrist XR showed small bone fragment on the dorsal aspect of the carpal bones on the lateral view. May represent triquetral fracture S/p Rt ankle ORIF POD 2 NWB RLE Reviewed PT/OT CM working on placement Vit D level 31 CAD: Chronic S/p stent from a few years ago stable as per last outpatient [facility] cardiology visit January 2024 Takes ASA Hypertension: Continue Metoprolol and Losartan HLD: Chronic Continue Rosuvastatin Other medical conditions: GERD, hiatal hernia (stable), prediabetes: A1C 6.1 2022. Disposition: PCP: Dr. Reyes -- Code Status: Full Code -- VTE Prophylaxis: Teds/SCDs for now : Mr. Nakul Brandon, contact #[phone]. Called for peer to peer per CM Awaiting call back I spent a total of 40 minutes coordinating, documenting and providing care for this patient excluding time spent in performance of separately billed services Admission and Anticipated Discharge Date Admission Date: June 11, 2024 Subjective Patient seen and examined Reports right ankle pain is well controlled Denied any other complaints Physical Exam Constitutional: + well hydrated; no acute distress Eyes: PERRL, conjunctivae normal, anicteric sclerae ENMT: external ear and nose normal, oropharynx normal Respiratory: normal respiratory effort, lungs clear to auscultation Cardiovascular: Rate/Rhythm: regular rate and regular rhythm Gastrointestinal (Abdomen): normal bowel sounds, soft, nontender, no hepatospl enomegaly Musculoskeletal: Rt wrist with splint Rt LE bandaged Neurologic: PERRL, EOMI, accommodation nl, no face palsy, no dysarthria Psychiatric: A+Ox3, euthymic affect Results & Data Results & Data Vital Signs (Past 12 Hours) Vital Signs Temp Pulse Resp BP Pulse Ox O2 Del Method 06/14/24 07:38 36.5 C 61 16 114/64 94 Room Air Laboratory Results Abnormal lab results 06/14/24 Range/Units 06:11 RBC 4.17 L (4.20-5.40) M/uL Hgb 10.9 L (12.0-16.0) g/dl Hct 34.6 L (37.0-47.0) % MCHC 31.5 L (32.0-36.0) g/dL RDW Std Deviation 47.5 H (36.4-46.3) fL RDW Coeff of Khadra 15.8 H (11.5-14.5) % BUN 25 H (6-23) mg/dl BUN/Creatinine Ratio 32.5 H (10-20) Glucose 103 H (70-99(Fasting)) mg/dl Calcium 8.4 L (8.6-10.3) mg/dl
--- NOTE | 2024-06-15 07:21 | Orthopedic Progress Note ---
Date of Service June 15, 2024 Assessment & Plan (1) Dislocation of ankle, right, closed: Plan: 84-year-old female now 3 days out from ORIF of lateral ankle fracture dislocation doing pretty well. Pains controlled. Just wait for placement. She also has a fairly mild wrist injury which wear cock up wrist splint for 1 month. She can use her right wrist and hand as tolerated within limits of pain. Plan: 1. DVT prophylaxis including thigh-high teds, SCDs, aspirin twice a day for 6 weeks. 2. PT OT. She is strictly nonweightbearing on this right ankle for the first 2 weeks. 3. Pain control. Doing pretty well with current pain regimen. Pain seems to be under adequate control. 4. Medical management as per the medicine service. 5. Disposition. She is orthopedically okay for discharge anytime medically stable. She is strictly nonweightbearing right leg. Should have a heel precautions to avoid heel ulcers. I need to see her back 2 to 3 weeks out from surgery date. (2) Avulsion fracture of right wrist: Admission and Anticipated Discharge Date Admission Date: June 11, 2024 Subjective 84-year-old female postop day 3 from ORIF of right ankle fracture dislocation. She also has a fairly mildly wrist injury on the right side. She is doing pretty well. Just waiting to go to a rehab. No new complaints. Pains controlled. Physical Exam Physical Exam: Physical nation of the right ankle reveals the splint to be clean dry and intact. She can flex extend her toes appropriately. She is neurologically intact. Examination of the wrist reveals minimal swelling. Still limited dorsal tenderness. The brace is in place. No seen swelling. She is neurologically intact. Results & Data Vital Signs (Past 12 Hours) Vital Signs Temp Pulse Resp BP Pulse Ox O2 Del Method 06/14/24 21:14 36.8 C 65 16 125/70 93 Room Air
[2024-06-15] MEDS: LORATADINE 10 MG TAB PO PRN (08:29)
--- NOTE | 2024-06-15 12:03 | Hospitalist Progress Note ---
Date of Service June 15, 2024 Assessment & Plan (1) Fracture of tibia and fibula: Plan: 84 year old female that presents s/p mechanical fall on ice; (Pt lives in ranch style home with three steps to enter home) Found to have acute fx identified tib/fib with tibiotalar dislocation. Traumatic right tibia/fibular fracture: Age-related osteoporosis with current pathologic fracture, right wrist and right tib/fib H/O Osteoporosis: Traumatic right wrist pain Tib Fib x-ray and ankle x-ray: Acute fractures of the distal tibia and fibula with tibiotalar dislocation. Posterior malleolus is not well-evaluated with possible fracture fragment noted laterally. Wrist XR showed small bone fragment on the dorsal aspect of the carpal bones on the lateral view. May represent triquetral fracture S/p Rt ankle ORIF POD 3 NWB RLE Vit D level 31 CAD: Chronic S/p stent from a few years ago stable as per last outpatient [facility] cardiology visit January 2024 Takes ASA Hypertension: Continue Metoprolol and Losartan HLD: Chronic Continue Rosuvastatin Other medical conditions: GERD, hiatal hernia (stable), prediabetes: A1C 6.1 2022. Disposition: PCP: Dr. Reyes -- Code Status: Full Code -- VTE Prophylaxis: Teds/SCDs for now : Mr. Nakul Brandon, contact #[phone]. Patient's insurance called and noted that patient does not qualify for acute rehab but they approved subacute rehab CM working on placement Will continue PT/OT while inpatient I spent a total of 50 minutes coordinating, documenting and providing care for this patient excluding time spent in performance of separately billed services Admission and Anticipated Discharge Date Admission Date: June 11, 2024 Subjective Patient seen and examined Working with OT No new complaints Physical Exam Constitutional: + well hydrated; no acute distress Eyes: PERRL, conjunctivae normal, anicteric sclerae ENMT: external ear and nose normal, oropharynx normal Respiratory: normal respiratory effort, lungs clear to auscultation Cardiovascular: Rate/Rhythm: regular rate and regular rhythm Gastrointestinal (Abdomen): normal bowel sounds, soft, nontender, no hepatosplenomegaly Musculoskeletal: RLE bandaged R wrist splint Neurologic: PERRL, EOMI, accommodation nl, no face palsy, no dysarthria Psychiatric: A+Ox3, euthymic affect Results & Data Results & Data Vital Signs (Past 12 Hours) Vital Signs Temp Pulse Resp BP Pulse Ox O2 Del Method 06/15/24 11:53 36.7 C 72 15 126/70 95 Room Air 06/15/24 07:57 36.7 C 63 16 122/72 96 Room Air
[2024-06-15] MEDS: traMADol HCL 50 MG TABLET PO PRN (15:44)
[2024-06-16 07:47] VITALS: BP 129/72; RESP 18; TEMP 97.9; O2SAT 94
--- NOTE | 2024-06-16 09:55 | Discharge Summary ---
Date of Service June 16, 2024 Admission HPI Per Admitting Provider History obtained from patient, family, and records. Medical history significant for CAD status post stent (2017), hypertension, hyperlipidemia, GERD, hiatal hernia, prediabetes, osteoporosis. Last confinement August 2023 for bronchitis secondary to entero/rhinovirus infection. Patient slipped and fell backwards going down a stairway outside her home. Patient landed on her bottom. Achy right wrist pain and right ankle pain from falling. No head trauma. No chest pain, SOB, LOC. Patient had trouble getting up. Medical History as above Surgical History : Bunionectomy, section, cystoscopy, parathyroidectomy, cholecystectomy, cataract surgeries, NOEMI/BSO, hammertoe surgery Family History : Breast cancer, CLL, heart disease, dementia Personal/Social history : Non-smoker, occasional EtOH intake, retired [employer] employee Admission Exam Per Admitting Provider GENERAL: Comfortable, pleasant, obese, no respiratory distress SKIN: Normal color, warm HEENT: [place] palpebral conjunctivae, no ptosis, moist buccal mucosa NECK : Supple, no tenderness CHEST : CTA, no tenderness HEART : RRR, no obvious murmurs ABDOMEN: Some distention, nontender EXTREMITIES : RLE splint, minimal right wrist tenderness, palpable pulses, no other conspicuous deformities noted NEUROLOGIC : Coherent, no facial asymmetry, no other gross focality Principal Diagnosis Right Ankle Fracture Avulsion fracture of right wrist Discharge Exam Constitutional + well hydrated; no acute distress Eyes PERRL, conjunctivae normal, anicteric sclerae ENMT external ear and nose normal, oropharynx normal Respiratory normal respiratory effort, lungs clear to auscultation Cardiovascular Rate/Rhythm: regular rate and regular rhythm Gastrointestinal (Abdomen) normal bowel sounds, soft, nontender, no hepatosplenomegaly Musculoskeletal RLE bandaged R wrist splint Neurologic PERRL, EOMI, accommodation nl, no face palsy, no dysarthria Psychiatric A+Ox3, euthymic affect Discharge Data Allergies Allergy/AdvReac Type Severity Reaction Status Date / Time pollen extracts Allergy Intermediate congestion- Verified 06/12/24 13:02 nasal Consultations 06/11/24 19:56 Consult Orthopedic Surgery Stat 06/11/24 20:12 ED Decision to Admit Stat Procedures Performed Operation Date: 06/12/24 07:00 Actual Procedures p Right Ankle Open Reduction Internal Fixation(Right) - Jayden Doherty MD Ordered Studies 06/12/24 FL ankle RT min 3V RTN Routine 06/12/24 13:52 US - OR guided needle placemen Routine Hospital Course (1) Fracture of tibia and fibula: 84 year old female that presents s/p mechanical fall on ice; (Pt lives in ranch style home with three steps to enter home) Found to have acute fx identified tib/fib with tibiotalar dislocation. Traumatic right tibia/fibular fracture: Age-related osteoporosis with current pathologic fracture, right wrist and right tib/fib H/O Osteoporosis: Traumatic right wrist pain Tib Fib x-ray and ankle x-ray: Acute fractures of the distal tibia and fibula with tibiotalar dislocation. Posterior malleolus is not well-evaluated with possible fracture fragment noted laterally. Wrist XR showed small bone fragment on the dorsal aspect of the carpal bones on the lateral view. May represent triquetral fracture S/p Rt ankle ORIF on 06/12/24 POD 4 Pain is controlled Patient is to be NWB RLE Patient was discharged to SNF for rehab Continue other home meds and follow up with Orthopedic surgeon outpatient Total Time Total Time Spent Total Time Spent (In Minutes): 35 Total Time Includes: Examination of the Patient, Discharge Planning and Medication Reconciliation Discharge Plan Discharge Items Patient Disposition: Transfer Inpatient Rehab Fac Reason For Visit: ANKLE FX Discharge Diagnosis: Right Ankle Fracture Avulsion fracture of right wrist Activity: Per Instructions section Activity Comment: Non-weightbearing on right leg/Foot Weightbearing: Right non-weightbearing Non-emergency contact: Surgeon Call non-emergency contact if: you have any medication questions Follow-up/Referrals: Jayden Doherty MD [Physician] - (Orthopedic follow-up 2-3 weeks from surgery date.) Vesta Reyes MD [Primary Care Provider] - Diet: Heart Healthy Addtl Attending Provider Instructions: Mrs Swain You came to the hospital after a fall and found to have right ankle fracture and right wrist avulsion fracture. You had surgery for your ankle fracture. Please do not bear weight on your Right leg. [facility] 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 Elevate right leg as much as possible Pending Studies at Discharge: No Stand-Alone Forms: My [facility] Skilled Items Patient informed of condition?: Yes DNR: No Discharge Level of Care: Skilled Communicable Disease: No Discharge Prognosis: Stable Lines: None Urinary Catheter: No Medications and DC Order Prescriptions: New tramadol 50 mg Tablet 50 - 100 mg PO Q6H PRN (Reason: pain) Qty: 20 0RF Continued cyanocobalamin (vitamin B-12) [Vitamin B-12] 1,000 mcg Tablet 1,000 mcg PO DAILY Qty: 30 0RF aspirin 81 mg tablet,delayed release (DR/EC) 81 mg PO DAILY Qty: 30 0RF famotidine 20 mg tablet 20 mg PO HS Qty: 30 0RF ascorbic acid (vitamin C) [Vitamin C] 500 mg Tablet 500 mg PO DAILY Qty: 30 0RF pantoprazole 40 mg tablet,delayed release (DR/EC) 40 mg PO DAILY Qty: 30 0RF losartan 25 mg tablet 25 mg PO QAM Qty: 30 0RF metoprolol succinate 25 mg tablet extended release 24 hr 25 mg PO DAILY Qty: 30 0RF albuterol sulfate 90 mcg/actuation HFA aerosol inhaler 1 inh inhalation Q6H PRN (Reason: shortness of breath or wheezing) Qty: 6.7 0RF fluticasone propionate 50 mcg/actuation [place],Suspension 2 spray INTRANASAL DAILY PRN (Reason: prn) Qty: 16 0RF Rx Instructions: administer into each nostril loratadine [Claritin] 10 mg Tablet 10 mg PO DAILY PRN (Reason: allergies) Qty: 30 0RF rosuvastatin 40 mg tablet 40 mg PO DAILY Qty: 30 0RF cholecalciferol (vitamin D3) [Vitamin D3] 25 mcg (1,000 unit) Tablet 25 mcg PO DAILY Qty: 30 0RF Discharge Orders: Discharge Order (Routine); Ordered 06/16/24 Ordered By: Robina Anaya Admission Data Admit Date/Time: 06/11/24 21:21 Attending Provider: Robina Anaya I. Admit Provider: Pedro Luis Jain Primary Care Provider: Vesta Reyes Other Providers: Jayden Doherty; Pedro Luis Jain; Allan Sharma; [facility]
[2024-06-16 10:20] VITALS: PULSE 72
== END 2024-06-16 10:45 | DRG 494 ==
LOC: ED 15:56 → EDINP 21:21 → SUATTDRO 21:21 → 3E 22:30